=== PATIENT | female | born 1980 | race Caucasian/White ===

== ENCOUNTER 2017-06-24 09:33 | Outpatient (RCR) | payer OTHER, SELFPAY ==
[2017-06-24 09:36] VITALS: BP 97/64; PULSE 67; RESP 16; TEMP 36.4; O2SAT 100; BMI 32.8
--- NOTE | 2017-06-24 11:04 | PN_ITS ---
(1) Polyclonal gammopathy Status: Chronic - Date of Service Date of Service:: 06/24/17 - Chief Complaint Abnormal protein and blood - History of Present Illness Patient was seen in follow-up for polyclonal gammopathy. She had rheumatology evaluation and was not diagnosed with any specific systemic connective tissue disease nor required any specific therapy. - Past Medical/Social History Past Medical History Past Medical History: Arthritis,Clotting disorder,Hypothyroidism Other Past Medical History: ALOPECIA CHROHN'S DISEASE HYPERGAMMAGLOBULINEMIA Past Surgical History Surgical: section Other Surgical History: c section x 2 Family History Paternal Past Medical History: Heart disease Maternal Past Medical History: Unknown Social History Smoking Status Never smoker Review of Systems Constitutional:: Denies: Fever, Sweats, Weight loss, Appetite change, Chills Cardiovascular:: Denies: Chest pain, Palpitations, Dyspnea on exertion, Orthopnea, PND, Shortness of breath Respiratory: Denies: Cough, Hemoptysis, Shortness of Breath, Wheezing Gastrointestinal:: Denies: Abdominal pain, Nausea, Vomiting, Diarrhea, Constipation, Hematochezia Genitourinary: Reports: - - Patient is expecting and no complications with the .. Denies: Dysuria, Hematuria, Flank pain Musculoskeletal:: Denies: Back pain, Myalgia, Arthralgia Skin: Denies: Rash, Skin Changes, Wounds Neurological:: Denies: Headache, Dizziness, Visual changes, Tinnitus, Hearing loss Psychiatric: Denies: Anxiety, Depression, Homicidal Ideations, Suicidal Ideations Objective Vital Signs Height 1.68 m Weight: 92.261 kg Weight in Pounds 203.4 lbs Pulse Ox 100 Temperature 97.5 F Pulse Rate 67 Respiratory Rate 16 Blood Pressure 97/64 Blood Pressure Position Sitting - Physical Exam General: Alert, Oriented x3, No apparent distress HEENT: Atraumatic, PERRLA, EOMI, Normocephalic Oropharynx:: Dry mucosa Neck:: Supple, Trachea midline. Negative for: JVD, bilateral Cardiac:: Regular rate, Regular rhythm, Normal S1, Normal S2. Negative for: Murmur Lungs: Clear to auscultation, Excusion symmetrical. Negative for: Rhonchi, Wheezes Abdomen:: Bowel sounds x 4, Soft, Non-tender, Non-distended, Gravid. Negative for: Hepatosplenomegaly Extremities:: Negative for: Cyanosis, Edema Neurological: Neuro grossly intact Skin:: Negative for: Lesions, Rash, Petechiae, Ecchymosis Psychiatric:: Appropriate affect, Euthymic Lymphatics:: Negative for: Cervical lymphadenopathy, Supraclavicular lymphadenopathy, Axillary lymphadenopathy Laboratory Data: Reviewed in EMR. A hypercoagulable panel was done in 2017 at [facility] is an essentially negative Assessment and Plan 36-year-old female with unexplained polyclonal gammopathy despite thorough evaluation by rheumatology twice. She is asymptomatic. No further follow-up with hematology is indicated. Primary Care Provider: Referring Provider:
== END 2017-06-27 15:08 | disposition home or self-care (01) ==
LOC: OMD 09:33
PROVIDERS: Visit Provider Internal Medicine Hematology & Oncology
DX: D89.0 Polyclonal hypergammaglobulinemia (principal)

== ENCOUNTER → 2017-10-10 14:54 | Outpatient (CLI) | payer OTHER, SELFPAY ==
[2017-10-10 15:41] LABS: Fetal Fibronectin POSITIVE; Record Kit Lot#, fFN J7025
== END ==
PROVIDERS: Visit Provider Advanced Practice Midwife
DX: O47.03 False labor before 37 completed weeks of gestation, third trimester (principal); Z3A.37 37 weeks gestation of pregnancy
CPT/HCPCS: 82731

== ENCOUNTER 2017-10-15 11:10 | Inpatient (IN) | payer OTHER, SELFPAY ==
[2017-10-15] MEDS: Betamethasone/Betamethasone 30 MG/5 ML Vial 12 MG IM (11:40)
[2017-10-15] MEDS: Lactated Ringers 1,000 ML 50 ML IV (11:45)
[2017-10-15 11:55] VITALS: BMI 35.6
[2017-10-15 12:00] LABS: Hematocrit 34.1 % (37-47); Hemoglobin 10.8 g/dl (12.0-15.0); Mean Corp Hgb Conc 31.7 g/gl (32-36); Mean Corpuscular Hgb 26.4 pg (27.0-32.0); Mean Corpuscular Volume 83.4 fL (81-99); Mean Platelet Vol. 8.9 fl (6.2-12.0); Platelet Count 252 K/mm3 (150-450); RBC Distribution Width CV 14.8 % (11.6-14.6); RBC Distribution Width SD 44.8 fl (35.1-43.9); Red Blood Count 4.09 M/mm3 (4.2-5.4); White Blood Count 10.8 K/mm3 (4.4-11.0)
[2017-10-15 12:01] LABS: Scan Indicated on CBC? Y/N NO
[2017-10-15] MEDS: Magnesium Sulfate 20 GM/500 ML BAG IV ×2 (12:45→21:32)
--- NOTE | 2017-10-15 12:51 | US_ITS ---
STUDY: SECOND AND THIRD TRIMESTER OBSTETRICAL ULTRASOUND - LIMITED REASON FOR EXAM: Female, 37 years old. Routine survey. LMP: March 01, 2017. PRIOR ULTRASOUND: None. TECHNIQUE: Transabdominal ultrasound evaluation was performed. FINDINGS: There is a single intrauterine fetus. The fetus is in a cephalic presentation. There is demonstrated cardiac activity with a heart rate of 140 bpm. There is decreased amniotic fluid volume consistent with oligohydramnios. The largest amniotic fluid pocket measures 2.2 cm. The amniotic fluid index (MEET) is 6.7 cm. The placenta is anterior in location and is not low lying. There are Grade 2 placental changes. The cervix measures 3.7 cm in length. BIOMETRY: BPD: 7.79 cm: 31 weeks, 2 days HC: 28.69 cm: 32 weeks, 5 days AC: 28.57 cm: 32 weeks, 5 days FL: 6.29 cm: 32 weeks, 4 days Age by LMP: 32 weeks, 4 days. MURALI by LMP: December 06, 2017. age by current US: 32 weeks, 1 days. MURALI by current US: December 09, 2017. Estimated weight: 1955 grams, +/- 285 grams, 33 percentile. Gender: Indeterminant US/OB Limited With Biometrics IMPRESSION: Single live intrauterine gestation with a mean gestational age of 32 weeks and 1 day. Electronically Signed: Luis Carlos Greer MD at 15:01 EDT Tel [phone], Service support ,
--- NOTE | 2017-10-15 12:54 | OB.TRI.NOTE ---
History of Present Illness Date of Service: 10/15/17 Was patient seen by the physician?: Yes Reason For Visit: PPROM Date of Service: 10/15/17 Final MURALI: 12/06/17 Gestational age: 32 Weeks and 4 Days History of Present Illness: Patient presents with LOF. No VB/ctxs. Reports good FM. Home Medications Medication Instructions Recorded Aspirin [Aspir-Low] 81 mg PO DAILY 06/07/17 Levothyroxine [Synthroid] 50 mcg PO DAILY 06/07/17 Loratadine [Claritin] 10 mg PO DAILY 06/24/17 Formula Tablet 1 tablet PO DAILY 06/24/17 Ferrous Sulfate [Slow Fe] 142 mg PO DAILY 10/15/17 Allergies grass pollen Allergy (Verified 06/24/17 09:46) Other morphine Adverse Reaction (Verified 10/15/17 11:52) Nausea - Pertinent Past Medical History Pertinent Past Medical History: Crohn's Thyroid Asthma Retinal disorder 2 prior c-sections Physical Exam General: Alert, Oriented x3 Abdomen: Soft, Non Tender, Non-Distended Presentation: Cephalic Cervix Dilation (cm): 0 - visually dilated NST - FHR Rate Baby A Baseline: 150 Variability:: Moderate Accelerations:: 15 x 15 Decelerations:: Variable NST Reactive:: Yes Uterine Activity:: quiet Impression/Plan 37yo female with PPROM Admit to L&D PPROM - antibiotics, monitor for signs infection FWB - formal growth US ordered, BMZ #1 given, reassuring EFM Magnesium through steroid time MOD - will be repeat with tubal ligation Plan discussed with Patient declines transport to tertiary care center at this time
--- NOTE | 2017-10-15 18:18 | PCM.PN.BLA ---
Progress Note S: Patient denies ctxs/VB. stable LOF O: fhts 135 with mod variability, accels, mild variables tocos - quiet A&P: 32&4 with PPROM Continue antibiotics & Mg Patient considering transport to [facility] but wants to further discuss things with All questions answered
--- NOTE | 2017-10-15 18:21 | PN_ITS ---
Progress Note S: Patient denies ctxs/VB. stable LOF O: fhts 135 with mod variability, accels, mild variables tocos - quiet A&P: 32&4 with PPROM Continue antibiotics & Mg Patient considering transport to [facility] but wants to further discuss things with All questions answered
--- NOTE | 2017-10-16 07:25 | PCM.PN.BLA ---
Progress Note S: Denies complaints O: AF, VS reviewed abd - soft, NT, ND fhts 130 with mod variability, accels tocos quiet A&P: HD #2 PPROM at 32&5 Continue close observation for infection Repeat cbc Synthroid Pepcid for GERD D/c Mg after 2nd BMZ Routine
[2017-10-16 08:14] LABS: Absolute Lymphocyte Count 1.59 X10^3/ul (0.83-4.51); Basophil# 0.01 X10^3/uL; Basophil% 0.1 % (0-1); Eosinophil# 0.03 X10^3/uL; Eosinophils% 0.2 % (0-5); Hematocrit 32.4 % (37-47); Hemoglobin 10.3 g/dl (12.0-15.0); Lymphocyte # 1.59 X10^3/ul (4.0); Lymphocyte % 10.1 % (19-41); Mean Corp Hgb Conc 31.8 g/gl (32-36); Mean Corpuscular Hgb 26.7 pg (27.0-32.0); Mean Corpuscular Volume 83.9 fL (81-99); Mean Platelet Vol. 8.9 fl (6.2-12.0); Monocyte# 1.08 X10^3/uL; Monocyte% 6.8 % (0-10); Neutrophil # 12.95 X10^3/uL (2.7-7.7); Neutrophil % 81.8 % (47-70); POSITIVE COUNT NO; POSITIVE DIFFERENTIAL NO; POSITIVE MORPHOLOGY NO; Platelet Count 287 K/mm3 (150-450); RBC Distribution Width CV 14.9 % (11.6-14.6); RBC Distribution Width SD 45.3 fl (35.1-43.9); Red Blood Count 3.86 M/mm3 (4.2-5.4); White Blood Count 15.8 K/mm3 (4.4-11.0)
--- NOTE | 2017-10-16 08:14 | PCM.PN.OB ---
Subjective: pt seen at bedside, doing well. pt denies abdominal pain. pt reports good movement. - Physical Exam General: Alert, Oriented x3 Abdomen: Soft, Non Tender, Gravid Weight: 100.2 kg Body Mass Index (BMI) 35.6 Laboratory Tests Past 24 Hrs 10/15/17 10/15/17 10/16/17 11:45 11:45 07:45 WBC 10.8 Pending RBC 4.09 L Pending Hgb 10.8 L Pending Hct 34.1 L Pending MCV 83.4 Pending MCH 26.4 L Pending MCHC 31.7 L Pending RDW 14.8 H Pending RDW Differential 44.8 H Pending Plt Count 252 Pending MPV 8.9 Neut % (Auto) Pending Absolute Neuts (auto) Pending Total Counted Pending Blood Type AB POSITIVE Antibody Screen NEGATIVE Medical Necessity - Tobacco Use Smoking Status: Never smoker Assessment/Plan 37yo @ 32.5 wks with PPROM 1) continue expectant mgmt 2) azithromycin given - dose complete 3) Ampicillin 2g IV q 6hr x 48hr then change to amoxicillin 500 Q8hrs for 5 days. 4) continue MgSO4 until second dose of celestone is in 5) Intermittent monitoring q 8hrs after magnesium complete 6) monitor for signs of infection 7) peds consult already complete- pt declines transport to tertiary care center 8) regular diet to start today- NPO if signs of labor or infection 9) MFM consulted by Dr. Saleem
[2017-10-16] MEDS: Levothyroxine 50 MCG Tablet PO (08:33)
[2017-10-16] MEDS: Lactated Ringers 1,000 ML 50 ML IV (08:34)
[2017-10-16] MEDS: Famotidine 20 MG Tablet PO ×2 (09:24→22:15)
[2017-10-16] MEDS: Betamethasone/Betamethasone 30 MG/5 ML Vial 12 MG IM (11:18)
[2017-10-17] MEDS: 0.9 % NaCl (Sterile) Posiflush 10 mL IV ×3 (01:15→22:55)
[2017-10-17] MEDS: Levothyroxine 50 MCG Tablet PO (06:03)
[2017-10-17 06:36] LABS: Absolute Lymphocyte Count 1.73 X10^3/ul (0.83-4.51); Absolute Neutrophil Count 12.4 X10^3/uL (2.0-7.7); Basophil# 0.02 X10^3/uL; Basophil% 0.1 % (0-1); Eosinophil# 0.02 X10^3/uL; Eosinophils% 0.1 % (0-5); Hematocrit 33.3 % (37-47); Hemoglobin 10.3 g/dl (12.0-15.0); Lymphocyte # 1.73 X10^3/ul (4.0); Lymphocyte % 11.2 % (19-41); Mean Corp Hgb Conc 30.9 g/gl (32-36); Mean Corpuscular Hgb 26.2 pg (27.0-32.0); Mean Corpuscular Volume 84.7 fL (81-99); Mean Platelet Vol. 8.9 fl (6.2-12.0); Monocyte# 1.02 X10^3/uL; Monocyte% 6.6 % (0-10); Neutrophil # 12.43 X10^3/uL (2.7-7.7); Neutrophil % 80.4 % (47-70); Platelet Count 263 K/mm3 (150-450); RBC Distribution Width CV 15.1 % (11.6-14.6); Red Blood Count 3.93 M/mm3 (4.2-5.4); White Blood Count 15.5 K/mm3 (4.4-11.0)
[2017-10-17 06:37] LABS: POSITIVE COUNT NO; POSITIVE DIFFERENTIAL NO; POSITIVE MORPHOLOGY NO
--- NOTE | 2017-10-17 07:28 | PN.OBGYN_ITS ---
Subjective: pt seen at bedside, doing well. pt reports had some pink spotting last night when using bathroom but otherwise nothing else. pt reports NO contractions. pt reports no pain. pt reports good movement. - Physical Exam General: Alert, Oriented x3 Abdomen: Soft, Non Tender, Gravid Extremities: No Calf Tenderness Weight: 100.2 kg Body Mass Index (BMI) 35.6 Laboratory Tests Past 24 Hrs 10/16/17 10/17/17 07:45 06:10 WBC 15.8 H 15.5 H RBC 3.86 L 3.93 L Hgb 10.3 L 10.3 L Hct 32.4 L 33.3 L MCV 83.9 84.7 MCH 26.7 L 26.2 L MCHC 31.8 L 30.9 L RDW 14.9 H 15.1 H RDW Differential 45.3 H 47.0 H Plt Count 287 263 MPV 8.9 8.9 Immature Gran % (Auto) 1.000 H 1.600 H Neut % (Auto) 81.8 H 80.4 H Lymph % (Auto) 10.1 L 11.2 L [place] % (Auto) 6.8 6.6 Eos % (Auto) 0.2 0.1 Baso % (Auto) 0.1 0.1 Absolute Neuts (auto) 13.0 H 12.4 H Absolute Lymphs (auto) 1.59 1.73 Total Counted Not Reportable Not Reportable Medical Necessity - Tobacco Use Smoking Status: Never smoker Assessment/Plan 37yo @ 32.6 wks PPROM 1) continue Abx- switch to PO after 48hrs of IV ampicillin 2) CBC today stable 3) received IM Celestone x 2 4) intermittent monitoring 5) expectant mgmt until 34 wks 6) monitor for signs of infection or labor 7) repeat c/s planned
[2017-10-17] MEDS: Famotidine 20 MG Tablet PO ×2 (12:46→22:55)
[2017-10-17] MEDS: AMOXICILLIN 500 MG CAPSULE PO ×2 (15:27→22:55)
[2017-10-17] MEDS: Docusate Sodium 100 MG Capsule PO (22:55)
[2017-10-18] MEDS: Levothyroxine 50 MCG Tablet PO (05:52)
[2017-10-18] MEDS: AMOXICILLIN 500 MG CAPSULE PO ×3 (05:52→21:44)
--- NOTE | 2017-10-18 08:37 | PCM.PN.OB ---
Subjective: Stable LOF. Denies VB/ctxs. Reports good FM. - Physical Exam General: Alert, Oriented x3 Abdomen: Soft, Non Tender, Non-Distended - NO fundal tenderness Extremities: No Calf Tenderness - negative homans Weight: 220 lb 14.451 oz Body Mass Index (BMI) 35.6 Medical Necessity - Tobacco Use Smoking Status: Never smoker Assessment/Plan HD#4 with PPROM, now at 33 weeks PPROM - continue amoxicillin FWB - reviewed NST's from past 24 hours & all reactive. NST from this am shows fhts 140 with mod variability, accels, occ mild variables; tocos - quiet will continue NST Q8 hours ID - AF, no signs or symptoms of infection MOD - plan for repeat All questions answered & patient agrees with plan
[2017-10-18] MEDS: Docusate Sodium 100 MG Capsule PO ×2 (10:34→21:43)
[2017-10-18] MEDS: Famotidine 20 MG Tablet PO ×2 (10:34→21:43)
[2017-10-19] MEDS: Levothyroxine 50 MCG Tablet PO (06:07)
[2017-10-19] MEDS: AMOXICILLIN 500 MG CAPSULE PO ×3 (06:08→22:09)
--- NOTE | 2017-10-19 08:54 | NURSING ---
0745 pt doing well today set up to shower;
[2017-10-19 09:25] LABS: Absolute Lymphocyte Count 1.32 X10^3/ul (0.83-4.51); Absolute Neutrophil Count 9.5 X10^3/uL (2.0-7.7); Basophil# 0.03 X10^3/uL; Basophil% 0.2 % (0-1); Eosinophil# 0.37 X10^3/uL; Hematocrit 35.9 % (37-47); Hemoglobin 11.4 g/dl (12.0-15.0); Lymphocyte # 1.32 X10^3/ul (4.0); Lymphocyte % 10.8 % (19-41); Mean Corp Hgb Conc 31.8 g/gl (32-36); Mean Corpuscular Hgb 26.7 pg (27.0-32.0); Mean Corpuscular Volume 84.1 fL (81-99); Mean Platelet Vol. 8.9 fl (6.2-12.0); Monocyte# 0.74 X10^3/uL; Neutrophil % 77.6 % (47-70); Platelet Count 338 K/mm3 (150-450); RBC Distribution Width SD 44.9 fl (35.1-43.9); Red Blood Count 4.27 M/mm3 (4.2-5.4); White Blood Count 12.3 K/mm3 (4.4-11.0)
[2017-10-19 09:26] LABS: POSITIVE COUNT YES; POSITIVE DIFFERENTIAL NO; POSITIVE MORPHOLOGY YES
--- NOTE | 2017-10-19 09:40 | PCM.PN.BLA ---
Progress Note S: Comanagement of this patient with Dr. Stiven COX. Patient continues to deny any cramping contractions. Scant clear fluid leaking currently, patient denies any further large gushes of fluid. Patient's continues to be at bedside providing support O: VSS, Afebrile (see RN notes). Latest CBC returned - WBC = 12.3 A+O x 3, NAD Abdomen NT x 4 quadrants to palpation, Gravid No leaking fluid noted at this time, SVE deferred FHT baseline 140, mod variability, + accels, no decels. Ctx none noted on tocometer A: 37 y/o @ 33+ weeks, PPROM, Cat I FHT P: 1) Continue present management 2) Anticipate repeat LTCS at 34 weeks if patient does not go into spontaneous labor on own 3) Update on patient status given to Dr. Stiven COX, patient will be rounded on by Dr. Saleem also today Elidia Becerril CNM
[2017-10-19] MEDS: Famotidine 20 MG Tablet PO ×2 (10:03→22:09)
[2017-10-19] MEDS: Docusate Sodium 100 MG Capsule PO ×2 (10:03→22:08)
--- NOTE | 2017-10-19 14:53 | PN.OBGYN_ITS ---
Subjective: Denies VB/ctxs. Reports good FM and stable LOF. - Physical Exam General: Alert, Oriented x3 Abdomen: Soft, Non Tender, Non-Distended - NO fundal tenderness, Gravid Extremities: No Calf Tenderness Weight: 220 lb 14.451 oz Body Mass Index (BMI) 35.6 Laboratory Tests Past 24 Hrs 10/19/17 09:10 WBC 12.3 H RBC 4.27 Hgb 11.4 L Hct 35.9 L MCV 84.1 MCH 26.7 L MCHC 31.8 L RDW 15.0 H RDW Differential 44.9 H Plt Count 338 MPV 8.9 Immature Gran % (Auto) 2.400 H Neut % (Auto) 77.6 H Lymph % (Auto) 10.8 L [place] % (Auto) 6.0 Eos % (Auto) 3.0 Baso % (Auto) 0.2 Absolute Neuts (auto) 9.5 H Absolute Lymphs (auto) 1.32 Total Counted Not Reportable Diff Path Review May foll Medical Necessity - Tobacco Use Smoking Status: Never smoker Assessment/Plan 37yo female @ 33&1 with PPROM PPROM - continue amoxicillin FWB - s/p BMZ monitoring - fhts 145 with mod variability, accels, occ mild variables tocos - irregular ctxs TAUS - vtx, MEET = 2.7 ID - wbc decreased today, no fundal tenderness or tachycardia, patient with temp of 99.5. had a temp of 100.3 that on repeat was 99.5. Plan of care & findings discussed with who recommends continued close observation & evaluation. No evidence of infection or distress at this time.
[2017-10-20] MEDS: Levothyroxine 50 MCG Tablet PO (06:07)
[2017-10-20] MEDS: AMOXICILLIN 500 MG CAPSULE PO ×3 (06:07→21:02)
[2017-10-20] MEDS: Docusate Sodium 100 MG Capsule PO ×2 (09:53→21:02)
[2017-10-20] MEDS: Famotidine 20 MG Tablet PO ×2 (09:53→21:02)
--- NOTE | 2017-10-20 11:18 | PCM.PN.BLA ---
Progress Note S: Patient sitting up in bed, watching television with her . Patient denies any abdominal pain and tenderness, reports +FM. O: VSS, Afebrile today. No temps >100.4 F. Last temp was 99.0 F Abdomen NT x 4 quadrants, Gravid FHT change in baseline at 10:00 am noted. Previously baseline between 140-150. Currently baseline 160, moderate variability, + accels, no decels Irregular ctx q 2-15 minutes x 1 hours, then no ctx for an hour. Now ctx again irregular q 3-10 minutes. Ctx not felt by patient, not palpable. SVE = deferred A: 37 y/o @ 33.2 weeks, PPROM, Categroy I FHT P: 1) Dr. Saleem updated of patient status 2) Redraw CBC, T+S today. 3) Restart Heplock now 4) Patient may eat light lunch, dissuade from eating snacks after lunch 5) Dr. Saleem to see patient this afternoon/early evening Elidia Becerril CNM
[2017-10-20 13:50] LABS: Absolute Lymphocyte Count 1.36 X10^3/ul (0.83-4.51); Absolute Neutrophil Count 10.3 X10^3/uL (2.0-7.7); Basophil# 0.03 X10^3/uL; Basophil% 0.2 % (0-1); Eosinophil# 0.34 X10^3/uL; Eosinophils% 2.6 % (0-5); Hematocrit 34.4 % (37-47); Lymphocyte # 1.36 X10^3/ul (4.0); Lymphocyte % 10.3 % (19-41); Mean Corpuscular Hgb 26.7 pg (27.0-32.0); Mean Corpuscular Volume 83.5 fL (81-99); Monocyte# 0.96 X10^3/uL; Monocyte% 7.3 % (0-10); Neutrophil # 10.29 X10^3/uL (2.7-7.7); Neutrophil % 77.8 % (47-70); Platelet Count 336 K/mm3 (150-450); RBC Distribution Width CV 14.9 % (11.6-14.6); Red Blood Count 4.12 M/mm3 (4.2-5.4); White Blood Count 13.2 K/mm3 (4.4-11.0)
[2017-10-20 13:52] LABS: POSITIVE COUNT NO; POSITIVE DIFFERENTIAL NO; POSITIVE MORPHOLOGY NO
[2017-10-20] MEDS: 0.9 % NaCl (Sterile) Posiflush 10 mL IV (13:54)
--- NOTE | 2017-10-20 14:07 | NURSING ---
wrong site charted. See new peripheral site.
--- NOTE | 2017-10-20 18:48 | PCM.PN.OB ---
Subjective: No VB/ctxs. Reports some LOF & good FM. She is very happy she was able to see her kids today. - Physical Exam General: Alert, Oriented x3 Abdomen: Soft, Non Tender, Non-Distended - NO fundal tenderness Extremities: No Calf Tenderness Weight: 220 lb 14.451 oz Body Mass Index (BMI) 35.6 Laboratory Tests Past 24 Hrs 10/20/17 10/20/17 13:20 13:20 WBC 13.2 H RBC 4.12 L Hgb 11.0 L Hct 34.4 L MCV 83.5 MCH 26.7 L MCHC 32.0 RDW 14.9 H RDW Differential 45.0 H Plt Count 336 MPV 9.0 Immature Gran % (Auto) 1.800 H Neut % (Auto) 77.8 H Lymph % (Auto) 10.3 L [place] % (Auto) 7.3 Eos % (Auto) 2.6 Baso % (Auto) 0.2 Absolute Neuts (auto) 10.3 H Absolute Lymphs (auto) 1.36 Total Counted Not Reportable Blood Type AB POSITIVE Antibody Screen NEGATIVE Medical Necessity - Tobacco Use Smoking Status: Never smoker Assessment/Plan A&P: 37yo female at 33& with PPROM ID - AF, wbc 13 today. continue amoxicillin. no signs infection & will continue to monitor closely. FWB - monitoring reassuring. plant to resume monitoring Q 8hours. fhts - 145 with mod variability, accels, occ mild variables tocos - occ ctx GI - continue light diet Routine care
[2017-10-20] MEDS: 0.9% Saline Lock 10 ML Syringe IV (21:24)
--- NOTE | 2017-10-21 04:32 | PCM.PN.BLA ---
Progress Note S: Page received from nursing staff, patient passed small stringy blood clot when she was up to bathroom. Patient denies having any regular ctx. This evening reports she is feeling a few small cramps. Patient reports +FM. One more episode of clear fluid gushing out happened late yesterday evening. O: VSS, Afebrile. Last temp = 98.9 F FHT baseline 145, moderate variability, + accels, no decels noted Ctx q 1-10 minutes on tocometer over last 2 hours, most not palpable by nursing staff. Patient smiling and does not perceive ctx. SVE deferred A: 37 y/o @ 33.3 weeks PPROM x 6 days, Cat I FHT P: 1) Continue present management - patient stable at this time 2) Will update MD in morning at shift change Elidia Becerril CNM
[2017-10-21] MEDS: AMOXICILLIN 500 MG CAPSULE PO ×3 (07:09→22:45)
[2017-10-21] MEDS: Levothyroxine 50 MCG Tablet PO (08:06)
--- NOTE | 2017-10-21 08:10 | PN.OBGYN_ITS ---
Subjective: pt seen at bedside, doing well. pt reports no pain, some leaking. Denies SIMMONS, chest pain SOB. pt reports good FM. - Physical Exam General: Alert, Oriented x3 Abdomen: Soft, Non Tender, - - fundus firm Extremities: No Calf Tenderness Weight: 100.2 kg Body Mass Index (BMI) 35.6 Laboratory Tests Past 24 Hrs 10/20/17 10/20/17 13:20 13:20 WBC 13.2 H RBC 4.12 L Hgb 11.0 L Hct 34.4 L MCV 83.5 MCH 26.7 L MCHC 32.0 RDW 14.9 H RDW Differential 45.0 H Plt Count 336 MPV 9.0 Immature Gran % (Auto) 1.800 H Neut % (Auto) 77.8 H Lymph % (Auto) 10.3 L [place] % (Auto) 7.3 Eos % (Auto) 2.6 Baso % (Auto) 0.2 Absolute Neuts (auto) 10.3 H Absolute Lymphs (auto) 1.36 Total Counted Not Reportable Blood Type AB POSITIVE Antibody Screen NEGATIVE Medical Necessity - Tobacco Use Smoking Status: Never smoker Assessment/Plan HD#6, 33.3 wks gestation with PPROM 1) continue intermittent FHR/TOCO unless complaints of pain, bleeding, febrile, decreased FM or other 2) CBC daily 3) monitor VS 4) C/S at 34 weeks unless indicated prior 5) M has been consulted and agrees with management plan
[2017-10-21] MEDS: 0.9% Saline Lock 10 ML Syringe IV ×2 (09:28→22:45)
[2017-10-21] MEDS: Docusate Sodium 100 MG Capsule PO ×2 (09:28→22:45)
[2017-10-21] MEDS: Famotidine 20 MG Tablet PO ×2 (10:52→22:45)
[2017-10-21 13:45] LABS: Pathologist Review Reviewed
[2017-10-22] MEDS: AMOXICILLIN 500 MG CAPSULE PO ×3 (06:51→22:15)
[2017-10-22] MEDS: Levothyroxine 50 MCG Tablet PO (06:51)
--- NOTE | 2017-10-22 08:22 | PCM.PN.OB ---
Subjective: pt seen at bedside, doing well. pt reports good movement. pt reports no abdominal pain. still leaking clear fluid- no vaginal bleeding. - Physical Exam General: Alert, Oriented x3 Abdomen: Soft, Non Tender, Gravid Extremities: No Calf Tenderness Weight: 100.2 kg Body Mass Index (BMI) 35.6 Laboratory Tests Past 24 Hrs 10/19/17 09:10 Diff Path Review Reviewed Medical Necessity - Tobacco Use Smoking Status: Never smoker Assessment/Plan 37yo 33.4 wks- PPROM doing well today 1) repeat cbc 2) intermittent monitoring- NST this morning reactive and category 1- 145 bpm, moderate variability with accelerations no decelerations. No regular contractions. 3) Plan for repeat c/s at 34 weeks 4) monitor VS, monitor for s/sx of infection or Labor
[2017-10-22 08:57] LABS: Absolute Lymphocyte Count 1.36 X10^3/ul (0.83-4.51); Absolute Neutrophil Count 9.3 X10^3/uL (2.0-7.7); Basophil# 0.02 X10^3/uL; Basophil% 0.2 % (0-1); Eosinophils% 3.3 % (0-5); Hematocrit 35.2 % (37-47); Lymphocyte # 1.36 X10^3/ul (4.0); Lymphocyte % 11.1 % (19-41); Mean Corp Hgb Conc 31.3 g/gl (32-36); Mean Corpuscular Hgb 26.1 pg (27.0-32.0); Mean Corpuscular Volume 83.6 fL (81-99); Monocyte# 1.03 X10^3/uL; Monocyte% 8.4 % (0-10); Neutrophil % 75.7 % (47-70); Platelet Count 277 K/mm3 (150-450); RBC Distribution Width CV 15.2 % (11.6-14.6); RBC Distribution Width SD 46.6 fl (35.1-43.9); Red Blood Count 4.21 M/mm3 (4.2-5.4); White Blood Count 12.3 K/mm3 (4.4-11.0)
[2017-10-22 08:58] LABS: POSITIVE COUNT NO; POSITIVE DIFFERENTIAL NO; POSITIVE MORPHOLOGY NO
[2017-10-22] MEDS: Famotidine 20 MG Tablet PO ×2 (10:14→22:15)
[2017-10-22] MEDS: Docusate Sodium 100 MG Capsule PO ×2 (10:14→22:15)
[2017-10-22] MEDS: 0.9% Saline Lock 10 ML Syringe IV ×2 (12:57→22:15)
[2017-10-23] MEDS: Levothyroxine 50 MCG Tablet PO (06:10)
[2017-10-23] MEDS: AMOXICILLIN 500 MG CAPSULE PO ×3 (06:11→21:58)
--- NOTE | 2017-10-23 08:49 | PCM.PN.OB ---
Subjective: Patient sitting up in bed denies any complaints. Reports +FM Objective: FHT baseline 150 overnight, moderate variability, no decels, + accels Scant clear fluid leaking from vagina - Physical Exam General: Alert, Oriented x3, Cooperative HEENT: Atraumatic, PERRLA, EOMI, Normocephalic Lungs: Normal air movement Cardiovascular: Regular rate, Regular Rhythm Abdomen: Soft, Non Tender, Gravid, Appropriate for Gestational Age Extremities: No edema, Capillary Refill Less than 3 Seconds Skin: No rashes, No breakdown Musculoskeletal: No Tenderness to Palpation of Joints or Extremities Neurological: Cranial nerves II-XII grossly intact Psych/Mental Status: Normal Affect, Appropriate Weight: 220 lb 14.451 oz Body Mass Index (BMI) 35.6 Laboratory Tests Past 24 Hrs 10/22/17 08:40 WBC 12.3 H RBC 4.21 Hgb 11.0 L Hct 35.2 L MCV 83.6 MCH 26.1 L MCHC 31.3 L RDW 15.2 H RDW Differential 46.6 H Plt Count 277 MPV 9.0 Immature Gran % (Auto) 1.300 H Neut % (Auto) 75.7 H Lymph % (Auto) 11.1 L [place] % (Auto) 8.4 Eos % (Auto) 3.3 Baso % (Auto) 0.2 Absolute Neuts (auto) 9.3 H Absolute Lymphs (auto) 1.36 Total Counted Not Reportable Medical Necessity - Tobacco Use Smoking Status: Never smoker Tobacco Use: Non-smoker Assessment/Plan A: 37 y/o @ 33.5 week s/p PRROM x 8 days, Category I FHT P: 1) Repeat CBC with diff ordered this morning 2) Dr. Saleem to see patient this afternoon 3) Anticipate repeat LTCS at 34 weeks gestation on Saturday Elidia Becerril CNM
[2017-10-23] MEDS: Docusate Sodium 100 MG Capsule PO ×2 (10:02→21:58)
[2017-10-23] MEDS: Famotidine 20 MG Tablet PO ×2 (10:02→21:58)
[2017-10-23 10:20] LABS: Absolute Lymphocyte Count 1.41 X10^3/ul (0.83-4.51); Absolute Neutrophil Count 9.9 X10^3/uL (2.0-7.7); Basophil# 0.04 X10^3/uL; Basophil% 0.3 % (0-1); Eosinophil# 0.37 X10^3/uL; Eosinophils% 2.9 % (0-5); Hematocrit 33.7 % (37-47); Hemoglobin 10.6 g/dl (12.0-15.0); Lymphocyte # 1.41 X10^3/ul (4.0); Lymphocyte % 11.2 % (19-41); Mean Corp Hgb Conc 31.5 g/gl (32-36); Mean Corpuscular Hgb 26.2 pg (27.0-32.0); Mean Corpuscular Volume 83.2 fL (81-99); Mean Platelet Vol. 8.7 fl (6.2-12.0); Monocyte# 0.75 X10^3/uL; Monocyte% 5.9 % (0-10); Neutrophil # 9.87 X10^3/uL (2.7-7.7); Neutrophil % 78.2 % (47-70); Platelet Count 279 K/mm3 (150-450); RBC Distribution Width CV 14.9 % (11.6-14.6); RBC Distribution Width SD 44.5 fl (35.1-43.9); Red Blood Count 4.05 M/mm3 (4.2-5.4); White Blood Count 12.6 K/mm3 (4.4-11.0)
[2017-10-23 10:21] LABS: POSITIVE COUNT NO; POSITIVE DIFFERENTIAL NO; POSITIVE MORPHOLOGY NO
--- NOTE | 2017-10-23 17:27 | PN.OBGYN_ITS ---
Subjective: No VB/ctxs. Reports good FM and stable LOF - Physical Exam General: Alert, Oriented x3 Abdomen: Soft, Non Tender, Non-Distended - NO fundal tenderness Extremities: No Calf Tenderness Weight: 220 lb 14.451 oz Body Mass Index (BMI) 35.6 Laboratory Tests Past 24 Hrs 10/23/17 10:10 WBC 12.6 H RBC 4.05 L Hgb 10.6 L Hct 33.7 L MCV 83.2 MCH 26.2 L MCHC 31.5 L RDW 14.9 H RDW Differential 44.5 H Plt Count 279 MPV 8.7 Immature Gran % (Auto) 1.500 H Neut % (Auto) 78.2 H Lymph % (Auto) 11.2 L [place] % (Auto) 5.9 Eos % (Auto) 2.9 Baso % (Auto) 0.3 Absolute Neuts (auto) 9.9 H Absolute Lymphs (auto) 1.41 Total Counted Not Reportable Medical Necessity - Tobacco Use Smoking Status: Never smoker Tobacco Use: Non-smoker Assessment/Plan 37yo female @ 33&5 with PPROM ID - reviewed wbc, AF, no signs infection FWB - continue intermittent monitoring which has been reassuring - fhts 150 with mod variability, accels, occ mild variables; tocos - occ ctx Plan for repeat at 34 weeks unless maternal or indication sooner Routine care
[2017-10-23] MEDS: 0.9% Saline Lock 10 ML Syringe IV ×2 (17:45→21:58)
[2017-10-24] MEDS: AMOXICILLIN 500 MG CAPSULE PO ×3 (06:36→22:06)
[2017-10-24] MEDS: Levothyroxine 50 MCG Tablet PO (06:36)
[2017-10-24] MEDS: Docusate Sodium 100 MG Capsule PO ×2 (10:35→22:06)
[2017-10-24] MEDS: Famotidine 20 MG Tablet PO ×2 (10:35→22:19)
[2017-10-24] MEDS: 0.9% Saline Lock 10 ML Syringe IV (10:35)
[2017-10-24 15:33] LABS: Absolute Lymphocyte Count 1.51 X10^3/ul (0.83-4.51); Absolute Neutrophil Count 9.3 X10^3/uL (2.0-7.7); Basophil# 0.03 X10^3/uL; Basophil% 0.2 % (0-1); Eosinophil# 0.39 X10^3/uL; Eosinophils% 3.2 % (0-5); Hematocrit 34.2 % (37-47); Lymphocyte # 1.51 X10^3/ul (4.0); Lymphocyte % 12.2 % (19-41); Mean Corp Hgb Conc 32.2 g/gl (32-36); Mean Corpuscular Hgb 26.5 pg (27.0-32.0); Mean Corpuscular Volume 82.4 fL (81-99); Mean Platelet Vol. 9.1 fl (6.2-12.0); Monocyte# 0.92 X10^3/uL; Monocyte% 7.4 % (0-10); Neutrophil # 9.31 X10^3/uL (2.7-7.7); Neutrophil % 75.5 % (47-70); POSITIVE COUNT NO; POSITIVE DIFFERENTIAL NO; POSITIVE MORPHOLOGY NO; Platelet Count 317 K/mm3 (150-450); RBC Distribution Width CV 14.9 % (11.6-14.6); RBC Distribution Width SD 43.6 fl (35.1-43.9); Red Blood Count 4.15 M/mm3 (4.2-5.4); White Blood Count 12.4 K/mm3 (4.4-11.0)
--- NOTE | 2017-10-24 18:06 | PCM.PN.OB ---
Subjective: Denies ctxs/VB. reports stable LOF & good FM. - Physical Exam General: Alert, Oriented x3 Abdomen: Soft, Non Tender - NO fundal tenderness, Gravid Extremities: No Calf Tenderness Weight: 220 lb 14.451 oz Body Mass Index (BMI) 35.6 Laboratory Tests Past 24 Hrs 10/24/17 10/24/17 15:05 15:05 WBC 12.4 H RBC 4.15 L Hgb 11.0 L Hct 34.2 L MCV 82.4 MCH 26.5 L MCHC 32.2 RDW 14.9 H RDW Differential 43.6 Plt Count 317 MPV 9.1 Immature Gran % (Auto) 1.500 H Neut % (Auto) 75.5 H Lymph % (Auto) 12.[address] [place] % (Auto) 7.4 Eos % (Auto) 3.2 Baso % (Auto) 0.2 Absolute Neuts (auto) 9.3 H Absolute Lymphs (auto) 1.51 Total Counted Not Reportable Blood Type AB POSITIVE Antibody Screen NEGATIVE Medical Necessity - Tobacco Use Smoking Status: Never smoker Tobacco Use: Non-smoker Assessment/Plan A&P: 37yo female @ 33&6 with PPROM ID - AF, no signs infection FWB - reassuring intermittent EFM fhts 145 with mod variability, accels, mild variables tocos quiet MOD - repeat tomorrow Routine care
[2017-10-25] VITALS (15 sets, daily range): BP systolic 99–133; BP diastolic 58–71; PULSE 76–96; RESP 16–18; TEMP 36.4–37.3; O2SAT 98–100
[2017-10-25] MEDS: AMOXICILLIN 500 MG CAPSULE PO (06:24)
--- NOTE | 2017-10-25 07:10 | PCM.PN.OB ---
Subjective: Pt seen at bedside, doing well. pt reports no pain or contractions. All questions were answered about repeat cs and BTL that will be performed today. - Physical Exam General: Alert, Oriented x3 Abdomen: Soft, Non Tender, Gravid Weight: 100.2 kg Body Mass Index (BMI) 35.6 Laboratory Tests Past 24 Hrs 10/24/17 10/24/17 15:05 15:05 WBC 12.4 H RBC 4.15 L Hgb 11.0 L Hct 34.2 L MCV 82.4 MCH 26.5 L MCHC 32.2 RDW 14.9 H RDW Differential 43.6 Plt Count 317 MPV 9.1 Immature Gran % (Auto) 1.500 H Neut % (Auto) 75.5 H Lymph % (Auto) 12.2 L [place] % (Auto) 7.4 Eos % (Auto) 3.2 Baso % (Auto) 0.2 Absolute Neuts (auto) 9.3 H Absolute Lymphs (auto) 1.51 Total Counted Not Reportable Blood Type AB POSITIVE Antibody Screen NEGATIVE Medical Necessity - Tobacco Use Smoking Status: Never smoker Tobacco Use: Non-smoker Assessment/Plan HD#9 with PPROM now 34 weeks- plan for repeat c/s and BTL today 1) zithromax 500mg IV and Ancef for PRE OP 2) Risks of surgery reviewed with patient including but not limited to bleeding, infection, injury to pelvic structures. pt understands that tubal ligation is permanent. 3) plan for c/s at noon today unless signs of infection or decompensation become apparent before.
--- NOTE | 2017-10-25 07:13 | PN.OBGYN_ITS ---
Subjective: Pt seen at bedside, doing well. pt reports no pain or contractions. All questions were answered about repeat cs and BTL that will be performed today. - Physical Exam General: Alert, Oriented x3 Abdomen: Soft, Non Tender, Gravid Weight: 100.2 kg Body Mass Index (BMI) 35.6 Laboratory Tests Past 24 Hrs 10/24/17 10/24/17 15:05 15:05 WBC 12.4 H RBC 4.15 L Hgb 11.0 L Hct 34.2 L MCV 82.4 MCH 26.5 L MCHC 32.2 RDW 14.9 H RDW Differential 43.6 Plt Count 317 MPV 9.1 Immature Gran % (Auto) 1.500 H Neut % (Auto) 75.5 H Lymph % (Auto) 12.2 L [place] % (Auto) 7.4 Eos % (Auto) 3.2 Baso % (Auto) 0.2 Absolute Neuts (auto) 9.3 H Absolute Lymphs (auto) 1.51 Total Counted Not Reportable Blood Type AB POSITIVE Antibody Screen NEGATIVE Medical Necessity - Tobacco Use Smoking Status: Never smoker Tobacco Use: Non-smoker Assessment/Plan HD#9 with PPROM now 34 weeks- plan for repeat c/s and BTL today 1) zithromax 500mg IV and Ancef for PRE OP 2) Risks of surgery reviewed with patient including but not limited to bleeding , infection, injury to pelvic structures. pt understands that tubal ligation is permanent. 3) plan for c/s at noon today unless signs of infection or decompensation become apparent before.
[2017-10-25] MEDS: 0.9% Saline Lock 10 ML Syringe IV ×2 (09:55→21:17)
[2017-10-25] MEDS: Lactated Ringers 1,000 ML 150 ML IV ×2 (09:59→11:08)
[2017-10-25] MEDS: Levothyroxine 50 MCG Tablet PO (11:07)
[2017-10-25] MEDS: Sodium Citrate/Citric Acid 30 ML UDC PO (11:41)
[2017-10-25] MEDS: Ondansetron 4 MG/2 ML Vial IV (12:00)
[2017-10-25] MEDS: Oxytocin 30 units/NS 500 ml 30 UNITS/500 ML IV.SOLN 167 UNITS IV (12:17)
[2017-10-25] MEDS: Methylergonovine 0.2 MG/ML Ampul IM (12:21)
--- NOTE | 2017-10-25 12:40 | FALS_PTH ---
PATIENT: LACEY AL LOC: WP U#:[id number] AGE/SX: 37/F ROOM: WP009 RE10/15/[address]: Dr. Arleen Saleem MD : 1980 BED: 1 DIS: 10/28/2017 SPEC #: [id number] RECD: 10/28/17 07:28 STATUS: ELIZABETH RESelena #: [id number] JOE: 10/25/17 12:[address]: Marleni Avendaño DEPT: SURGICAL PATHOLOGY RECD BY: Rustam Rizzo ENTERED: 10/28/17 07:28 SP TYPE: FALL TUBES OTHR DR: MD Dr. Arleen Kuhn MD No Primary Care Phys Tissues: Fallopian tube Procedures: Surgery Specimen Level II Comments: @ Ordering doctor for SUII edited from to DR.DMCINT Wray by MAGNOLIA at 10/28/17 1233 @ Submitting doctor edited from to DR.DMCINT Wray by MAGNOLIA at 10/28/17 1233 HEADER OPERATION: Tubal ligation PRE-OP DIAGNOSIS: Desires elective sterilization TISSUE SUBMITTED: Fallopian tubes MICROSCOPIC DIAGNOSIS Bilateral fallopian tubes, tubal ligation: Completely transected segments of bilateral fallopian tubes, no pathologic diagnosis. NORMA:royer 10/29/17 MICROSCOPIC DESCRIPTION Slides are reviewed. GROSS DESCRIPTION Received in fixative is one container labeled with the patient's name and designated right fallopian tube, suture in right. The specimen consists of two tubular pieces of lyn soft tissue. The right tube is identified by a suture. The right tube with suture measures 1 cm in length and 0.7 cm in diameter. The left tube measures 0.7 cm in length and 0.7 cm in diameter. The right tube is inked black. Both pieces will be sectioned at the time of embedding. / NORMA:royer 10/28/17 TC:4 CPT: 50391 x2
--- NOTE | 2017-10-25 12:52 | PCM.OB.CSR ---
Delivery Classification: Scheduled Final MURALI: 12/06/17 Final MURALI Source: US <20 weeks Gestational age: 34 Weeks and 0 Days Indications: PPPROM Indications for : Repeat Elective , Desires elective sterilization, - - PPPROM Description of Procedure: Surgeon: Dr. Marleni Avendaño Bilingual Customer Service Specialist: YAZMIN Jung Procedure performed: Repeat section, bilateral partial salpingectomy Anesthesia: Spinal Preoperative diagnosis: Prolonged premature rupture of membranes at 32+ weeks gestation for an elective repeat section at 34 weeks desires sterilization Postoperative Diagnosis: same- live female infant Findings: Live female born without complication. Nuchal ?1 loose. Clear fluid. Delayed cord clamping performed. Normal tubes and ovaries bilaterally. Partial salpingectomy performed - right tube bleeding after- 2 extra free ties placed and good hemostasis achieved EBL: 800 cc Implantable devices: None Operative note: After informed consent was obtained the patient was taken to the operating room she was given spinal anesthesia. He was placed in the supine position. She was then prepped and draped in normal sterile fashion. Once spinal anesthesia was found to be adequate skin incision was made with a scalpel in a Pfannenstiel fashion. It was carried down to the underlying layer of the fascia. Fascia was then incised midline with scapel and extended laterally using curved hackett. 2 straight Shayna's were placed in the superior aspect of the fascial edge and the rectus muscles were dissected off sharply. Attention was then turned to the inferior aspect where again the fascial edge was grasped with 2 straight Shayna clamps tented up and the rectus muscle dissected off sharply. At this time the rectus muscles were grasped in the midline using 2 Allis clamps and scalpel was used to separate the rectus muscles. Using blunt force the peritoneum was then entered. Metzenbaums were used to take down the rectus muscles inferiorly as well as the peritoneum. At this time the vesicouterine peritoneum was identified. Uterine incision was made in a low transverse fashion with the scalpel and then entered bluntly. Gentle opposing traction was placed to extend the uterine incision. The amniotic fluid was clear. Infant's head was then brought to the uterine incision was delivered atraumatically followed by the rest 's body. At this time delayed cord clamping was performed mouth nose were suctioned. Infant was then handed to the waiting nursery team. The placenta was then removed with gentle traction. The uterus was removed from the intra-abdominal cavity is wrapped in a moist lap. He was cleared of all clots and debris using a moist lap. Ring clamps were placed on the uterine angles. #1 Vicryl suture was used in a running locked fashion for the first layer. Followed by second imbricating layer with #1 Vicryl. At this time then the uterus was placed back into abdominal cavity uterine incision was evaluated and noted to be of good hemostasis. Tubes and ovaries were evaluated they were normal. The tubes were grasped in an avascular area with the Supa 0- plain gut suture was used to create a knuckle this was doubly secured. A portion of the tube was then resected using the Metzenbaum scissors. And the ends were coagulated using the Bovie. Bleeding noted from right tube- two free ties were placed below the pervious knuckle and hemostasis was appreciated. Uterus was placed back in the intrabdominal cavity. tubes were reevaluated as well as uterine incision. Good hemostasis was appreciated at this time. Adolfo placed. The peritoneum was grasped with Kellys. Peritoneum was reapproximated using #2 Vicryl suture in a running fashion. The fascia was then reapproximated using #1 Vicryl in a running fashion. Subcutaneous layer was evaluated and Bovie was used for any small oozing that was noted per #2-0 plain gut suture was then used to reapproximate the subcutaneous layer 4-0 Vicryl on a Ambrosio needle was used to reapproximate the skin in a subcutaneous fashion. Dry sterile dressing was applied. Instrument lap needle count were correct ?2. Anticipated normal postoperative course for this patient. Amniotic Membrane Rupture Type: Spontaneous Amniotic Fluid Description: Clear Placenta Disposition: Sent to Pathology Drain: Pressley to straight drain Cord Entanglement: Around neck x 1, loose Cord Vessel Description: 3 Vessels Esitmated Blood Loss (ml): 800 Gender: Female (1 minute): 8 (5 minute): 9 Delayed cord clamping: Yes Pre-op Antibiotic Given: - - zithromax 500mg IV Pt instructed on risks of surgery: Bleeding, Anesthesia Risks, Infection, Need for Future C-Sections, Permanency, Failure Rate of 1 to 2%, Injury to surrounding structure(s) including bowel and bladder, Availability of other non-permanent control options Complications: None - Admit VTE Documentation VTE Present on Admission: Yes VTE Mechan Device Prophylaxis: SCD's VTE Pharm Prophylaxis ordered?: No
[2017-10-25] MEDS: Lactated Ringers 1,000 ML 100 ML IV (13:10)
[2017-10-25] MEDS: proMETHazine 25 MG/ML Syringe 12.5 MG IV (14:33)
[2017-10-26] VITALS (10 sets, daily range): BP systolic 96–115; BP diastolic 54–80; PULSE 75–99; RESP 16–18; TEMP 36.2–37.2; O2SAT 97–100
[2017-10-26] MEDS: Ibuprofen 600 MG Tablet PO ×2 (00:35→08:52)
[2017-10-26] MEDS: Levothyroxine 50 MCG Tablet PO (06:31)
[2017-10-26 07:16] LABS: Hemoglobin 9.7 g/dl (12.0-15.0); Mean Corp Hgb Conc 32.3 g/gl (32-36); Mean Corpuscular Hgb 26.9 pg (27.0-32.0); Mean Corpuscular Volume 83.1 fL (81-99); Mean Platelet Vol. 9.1 fl (6.2-12.0); Platelet Count 260 K/mm3 (150-450); RBC Distribution Width CV 15.1 % (11.6-14.6); RBC Distribution Width SD 44.1 fl (35.1-43.9); Red Blood Count 3.61 M/mm3 (4.2-5.4); Scan Indicated on CBC? Y/N NO; White Blood Count 13.4 K/mm3 (4.4-11.0)
--- NOTE | 2017-10-26 07:58 | PCM.PN.OB ---
Subjective: pt seen at bedside doing well. pt reports passing flatus. Tolerating diet. Denies CP, SOB or Dizziness. pt has mcknight in place. some pain but is relieved with PO medication. pumping as baby in SCN. - Physical Exam General: Alert, Oriented x3 Abdomen: Soft, Non-Distended, - - fundus firm. INcision dressing dry and intact Extremities: No Calf Tenderness Vital Signs Temp Pulse Resp BP Pulse Ox 97.2 F L 88 18 96/54 L 98 10/26/17 04:30 10/26/17 04:30 10/26/17 04:30 10/26/17 04:30 10/26/17 04:30 Oxygen Delivery Method Room Air Weight: 100.2 kg Body Mass Index (BMI) 35.6 Intake and Output for Last 24 Hours 10/24/17 10/25/17 10/26/17 23:59 23:59 23:59 Intake Total 3431 / 3431 1075 / 1075 Output Total 1600 / 1600 1100 / 1100 Balance 1831 / 1831 -25 / -25 Laboratory Tests Past 24 Hrs 10/26/17 06:40 WBC 13.4 H RBC 3.61 L Hgb 9.7 L Hct 30.0 L MCV 83.1 MCH 26.9 L MCHC 32.3 RDW 15.1 H RDW Differential 44.1 H Plt Count 260 MPV 9.1 Medical Necessity - Tobacco Use Smoking Status: Never smoker Tobacco Use: Non-smoker Assessment/Plan POD#1 doing well routine care pain mgmt dc mcknight today labs and VS reviewed- stable
--- NOTE | 2017-10-26 08:03 | DCINST_ITS ---
Discharge Diet: No Restrictions Discharge Activity: Return to Normal Activity, May Not Drive - for 2 weeks, May not drive while taking narcotic pain medications., May Shower, May Take a Tub Bath - in 7 days. May resume sexual activity in: 4-6 weeks Lifting Restrictions: 20 pounds Additional Activity Instructions:: Nothing in the vagina for 4-6 weeks. You may return to work/school in 6 weeks. Call your doctor if your incision/area has: Continuous Slow Oozing, Sudden Increased Bleeding, Increased Pain/ Swelling, Increased Redness, Foul Smelling Discharge Call your doctor if you observe: Fever of 101 or Higher, Using more than one pad per hour - for 2 hours Suture Line Care: Avoid Pulling/Pushing, Avoid Pinching/Bending Cleanse incision/area with: Keep Dressing Clean & Dry Additional Instructions: If you experience any of the following, contact your healthcare provider. * Bleeding that soaks a pad every hour for 2 hours * Fever 100.4 or higher * Unrelieved incision or abdominal pain * Swelling, redness, discharge or bleeding from your incision or episiotomy site * Your incision begins to separate * Problems urinating (including inability to urinate or burning while urinating) . * Visual changes * Severe headache * Flu-like symptoms * Pain or redness in one of both of your breasts * Pain, warmth, tenderness or swelling in your legs, especially the calf area * Frequent nausea and vomiting * Symptoms of depression or anxiety If you experience any of the following, call 911 or go to the nearest Emergency Room. * Chest pain * Problems breathing * Seizure activity * Partial or complete paralysis of a body part, slurred speech, weakness or drooping of the face, or a sudden inability to walk or hold your balance Allergies/Adverse Reactions: Allergies grass pollen Allergy (Verified 06/24/17 09:46) Other morphine Adverse Reaction (Verified 10/15/17 11:52) Nausea Medications to take at Discharge Levothyroxine [Synthroid] 50 mcg PO DAILY 06/07/17 Loratadine [Claritin] 10 mg PO DAILY 06/24/17 Formula Tablet 1 tablet PO DAILY 06/24/17 Ferrous Sulfate [Slow Fe] 142 mg PO DAILY 10/15/17 Ibuprofen [Motrin] 800 mg PO Q8H PRN PRN #60 tab 10/26/17 Levothyroxine [Synthroid] 50 mcg PO DAILY@0600 tablet 10/26/17 Oxycodone HCl/Acetaminophen [Percocet 5/325] 1 tablet PO Q6H PRN PRN 7 Days #28 tablet 10/26/17 Senna/Docusate Sodium [Senokot-S] 1 tab PO DAILY PRN #20 tab 10/26/17 SimETHICONE [Mylicon] 80 mg PO PCHS PRN #30 tab 10/26/17 The following prescriptions were given: Oxycodone HCl/Acetaminophen [Percocet 5/325] 1 tablet PO Q6H PRN PRN 7 Days #28 tablet PRN Reason: Pain Ibuprofen [Motrin] 800 mg PO Q8H PRN PRN #60 tab PRN Reason: Pain Senna/Docusate Sodium [Senokot-S] 1 tab PO DAILY PRN #20 tab PRN Reason: Constipation SimETHICONE [Mylicon] 80 mg PO PCHS PRN #30 tab PRN Reason: Indigestion/stomach pain Follow-Up: Call to make an appointment with your doctor for an incision check in 1-2 weeks. You will also need a 6 week post- follow up appointment. Please Follow Up With: Marleni Avendaño MD - Call to make an appointment for an incision check in 1-2 [phone] When: You will need a post- check in 6 weeks. Primary Care Physician: Care Physician,No Primary [Primary Care Provider] -
[2017-10-26] MEDS: oxyCODONE 5 MG Tablet PO ×3 (13:26→23:09)
[2017-10-26] MEDS: Senna/Docusate Sodium 1 Tablet PO (18:00)
[2017-10-27 03:00] VITALS: BP 107/55; PULSE 92; RESP 16; TEMP 36.4; O2SAT 97
[2017-10-27] MEDS: oxyCODONE 5 MG Tablet PO ×5 (04:29→23:40)
[2017-10-27] MEDS: Ibuprofen 600 MG Tablet PO ×2 (04:29→20:00)
[2017-10-27] MEDS: Levothyroxine 50 MCG Tablet PO (06:43)
--- NOTE | 2017-10-27 07:06 | PN.OBGYN_ITS ---
Subjective: pt seen at in [facility], breast feeding . pt doing well. pt reports good pain control. Lochia mild. Passing flatus. Pain controlled. - Physical Exam General: Alert, Oriented x3 Abdomen: Soft, Passing Flatus, - - fundus firm. INcision dressing dry and intact Extremities: No Calf Tenderness Vital Signs Temp Pulse Resp BP Pulse Ox 97.5 F L 92 16 107/55 L 97 10/27/17 03:00 10/27/17 03:00 10/27/17 03:00 10/27/17 03:00 10/27/17 03:00 Oxygen Delivery Method Room Air Weight: 100.2 kg Body Mass Index (BMI) 35.6 Intake and Output for Last 24 Hours 10/25/17 10/26/17 10/27/17 23:59 23:59 23:59 Intake Total 3431 / 3431 1835 / 1835 Output Total 1600 / 1600 4550 / 4550 Balance 1831 / 1831 -2715 / -2715 Laboratory Tests Past 24 Hrs 10/26/17 06:40 WBC 13.4 H RBC 3.61 L Hgb 9.7 L Hct 30.0 L MCV 83.1 MCH 26.9 L MCHC 32.3 RDW 15.1 H RDW Differential 44.1 H Plt Count 260 MPV 9.1 Medical Necessity - Tobacco Use Smoking Status: Never smoker Tobacco Use: Non-smoker Assessment/Plan POD#2, doing well routine care pain mgmt
[2017-10-27 07:34] VITALS: BP 101/50; PULSE 74; RESP 18; TEMP 36.8; O2SAT 97
[2017-10-27] MEDS: Senna/Docusate Sodium 1 Tablet PO ×2 (08:35→17:39)
--- NOTE | 2017-10-27 12:00 | NURSING ---
Brought to this RN's attention by pt a firm area where IV was. No redness/swelling noted. Not tender to touch or warm. Will notify physician. Warm compress applied.
[2017-10-27 12:47] LABS: Pathology Specimen OB SEE PATHOLOGY REPORT
[2017-10-27 14:00] VITALS: BP 107/70; PULSE 79; RESP 18; TEMP 36.6; O2SAT 100
[2017-10-27 22:00] VITALS: BP 106/54; PULSE 64; RESP 16; TEMP 36.4; O2SAT 100
[2017-10-28 01:20] VITALS: BP 106/62; PULSE 78; RESP 16; TEMP 36.2; O2SAT 98
[2017-10-28] MEDS: Ibuprofen 600 MG Tablet PO ×2 (04:48→12:42)
[2017-10-28] MEDS: oxyCODONE 5 MG Tablet PO ×2 (04:49→08:52)
[2017-10-28] MEDS: Levothyroxine 50 MCG Tablet PO (06:36)
[2017-10-28 08:00] VITALS: BP 97/53; PULSE 84; RESP 16; TEMP 36.3
--- NOTE | 2017-10-28 08:03 | PCM.PN.OB ---
Subjective: pt seen at bedside, doing well. pt reports good pain control. lochia mild. Breast pumping and attempts at breast feeding- baby in SCN. - Physical Exam General: Alert, Oriented x3 Abdomen: Soft, Non-Distended, - - fundus firm. incision site dry and intact Extremities: No Calf Tenderness Vital Signs Temp Pulse Resp BP Pulse Ox 97.1 F L 78 16 106/62 98 10/28/17 01:20 10/28/17 01:20 10/28/17 01:20 10/28/17 01:20 10/28/17 01:20 Oxygen Delivery Method Room Air Weight: 100.2 kg Body Mass Index (BMI) 35.6 Intake and Output for Last 24 Hours 10/26/17 10/27/17 10/28/17 23:59 23:59 23:59 Intake Total 1835 / 1835 Output Total 4550 / 4550 Balance -2715 / -2715 Medical Necessity - Tobacco Use Smoking Status: Never smoker Tobacco Use: Non-smoker Assessment/Plan POD#3, doing well routine care pain mgmt dc home- will go to hotel status
--- NOTE | 2017-10-28 08:05 | PCM.DC.BLA ---
Discharge Summary Date of Admission: 10/15/17 Date of Discharge: 10/28/17 Summary: patient was admitted with PPROM at 32+ wks gestation- pt was placed on IV abx x2 days and then oral antibiotics. Pt did receive IM celestone and Magnesium on admission. Pt remained stable without signs of infection or compromise. Pt underwent repeat Low transverse c/s and BTL on 10/25/17 without complication. Pt was discharged home on POD#3 in stable condition.
[2017-10-28] MEDS: Senna/Docusate Sodium 1 Tablet PO (08:53)
[2017-10-28 14:00] VITALS: BP 115/70; PULSE 80; RESP 20; TEMP 36.3
[2017-10-29 14:19] LABS: Pathology Specimen OB SEE PATHOLOGY REPORT
== END 2017-10-28 16:00 | disposition home or self-care (01) | DRG 766 ==
PROVIDERS: Advanced Practice Midwife; Admitting Provider Obstetrics & Gynecology; Family Provider Obstetrics & Gynecology; Visit Provider Obstetrics & Gynecology
DX: O42.113 Preterm premature rupture of membranes, onset of labor more than 24 hours following rupture, third trimester (principal); O34.211 Maternal care for low transverse scar from previous cesarean delivery; O69.81X0 Labor and delivery complicated by cord around neck, without compression, not applicable or unspecified; Z37.0 Single live birth; Z30.2 Encounter for sterilization; Z3A.34 34 weeks gestation of pregnancy
CPT/HCPCS: 59025; 59050; 76815; 76816; 85025; 85027; 86850; 86900; 88302; 99218; J7120; A4216; G0378; J0702; J2405

== ENCOUNTER 2020-09-09 08:38 | Observation (INO) | payer OTHER, SELFPAY ==
[2020-09-09] VITALS (12 sets, daily range): BP systolic 97–142; BP diastolic 58–110; PULSE 82–94; RESP 16–18; TEMP 36.2–36.8; O2SAT 97–100; BMI 32.3
--- NOTE | 2020-09-09 09:07 | CT_ITS ---
STUDY: CT ABDOMEN AND PELVIS WITH CONTRAST REASON FOR EXAM: Female, 40 years old. RLQ PAIN AND BLOATING. CROHNS RADIATION DOSAGE (If Supplied By Facility): CTDIvol = ( 15.60 ) mGy, DLP = ( 1068.93 ) mGycm TECHNIQUE: Transaxial images were obtained from the dome of the diaphragm to the symphysis pubis with oral contrast. Oral and amp; IV Gastrografin and amp; 100mL Isovue-370 was administered. Sagittal and coronal images were reconstructed. Individualized dose optimization techniques were used for this CT. COMPARISON: None. FINDINGS: The visualized lung bases are unremarkable. The visualized portions of the heart are within normal limits. Normal liver. Tiny gallstone. Minimal gallbladder wall thickening. Normal spleen. Normal pancreas. Normal bilateral adrenal glands. Normal right kidney. Normal left kidney. There is a small hiatal hernia. Minimal thickening of the terminal ileum. Normal colon. There is a tubular, thick-walled appendix (>7mm), consistent with acute appendicitis. Small mesenteric lymph nodes are seen in the right lower quadrant. Normal abdominal aorta. Normal inferior vena cava. Normal retroperitoneum. Normal urinary bladder. There is a 2.2 cm x 2.2 cm cyst in the right ovary. Small amount of free fluid in the pelvis. Normal abdominal wall. Normal osseous structures. CT/Abdomen/Pelvis WITH Contrast IMPRESSION: Findings with a noncomplicated acute appendicitis with a small mesenteric lymph nodes seen in the right lower quadrant. Minimal changes of the terminal ileum. 2.2 cm x 2.2 cm cyst in the right ovary with a small amount of free fluid in the right hemipelvis. Electronically Signed: Luis Carlos Greer MD at 11:18 EST , Service support ,
--- NOTE | 2020-09-09 09:10 | ED.DCSUM_ITS ---
- ER Visit Summary Date of Service: 09/09/20 Chief Complaint: Abdominal pain History of Present Illness: The patient is a 40 F who presents with abdominal pain that began yesterday. Patient states her pain started in the right lower quadrant and remained there. Patient states it is a dull ache. Patient states it feels gassy. Patient states it is worse when she laid flat and stretched out. Patient admits to nausea but denies any vomiting. Patient denies any diarrhea, melena, or hematochezia. Patient denies any dysuria or hematuria. Patient states she went to the urgent care earlier today. Patient states they did a urinalysis and told her that she needed to come to the emergency department for further evaluation. Patient thinks her urinalysis was normal. Physical Examination: Vital signs are stable. Patient is afebrile. Patient is in no acute distress. Oral mucosa is pink and moist. Neck is supple. Trachea is midline. There is no JVD. Heart was regular rate and rhythm. Lungs are clear and equal bilaterally. Abdomen is soft. Bowel sounds are normal. There is tenderness in the right lower quadrant. There is no rebound. There is mild Rovsing sign. Heel strike was negative. Obturator sign was negative. Cranial nerves II through XII are intact. There are no focal motor or sensory deficits noted. Extremities are intact. There is no calf tenderness or edema. Test Results: CBC and comprehensive metabolic profile were obtained and were within normal limits. Urinalysis does not show any evidence of urinary tract infection. Serum hCG was negative. CT scan of the abdomen pelvis was obtained. There is evidence of acute appendicitis. This was interpreted by the radiologist and reviewed by myself. Emergency Department Course and Treatment: He was given IV fluids and Zofran. Patient was complaining of worsening pain on reevaluation. Patient was given a dose of Dilaudid. Patient was given a dose of Zosyn. Case was discussed with Dr. Smith. She will take the patient to surgery today. Patient understood and was agreeable with the plan. All questions were answered. Disposition: Admit to hospital Impression: Acute appendicitis This note was generated with [employer] dictation software. It may contain incorrect words, spelling, and punctuation that were not noted in review of the chart prior to signing ED Disposition - Plan for ED Patient: Disposition: Acute Care Hospital [facility] Diagnosis: Acute appendicitis Referrals: Care Physician,No Primary [NON-STAFF] -
[2020-09-09 09:18] LABS: Absolute Lymphocyte Count 0.94 X10^3/uL (0.83-4.51); Absolute Neutrophil Count 7.8 X10^3/uL (2.0-7.7); Basophil# 0.03 X10^3/uL; Basophil% 0.3 % (0-1); Eosinophils% 2.1 % (0-5); Hematocrit 39.1 % (37-47); Hemoglobin 12.9 g/dL (12.0-15.0); Lymphocyte # 0.94 X10^3/ul (4.0); Lymphocyte % 9.8 % (19-41); Mean Corpuscular Hgb 28.7 pg (27.0-32.0); Mean Corpuscular Volume 86.9 fL (81-99); Mean Platelet Vol. 8.3 fl (6.2-12.0); Monocyte# 0.61 X10^3/uL; Monocyte% 6.3 % (0-10); NRBC Flagged by Analyzer 0 % (0-5); Neutrophil % 81.2 % (47-70); Platelet Count 320 K/mm3 (150-450); RBC Distribution Width CV 12.1 % (11.6-14.6); RBC Distribution Width SD 38.8 fl (35.1-43.9); White Blood Count 9.6 K/mm3 (4.4-11.0)
[2020-09-09] MEDS: 0.9% Normal Saline 1,000 ML 1000 ML IV (09:18)
[2020-09-09 09:26] LABS: Mucous, Urine 0 SEEN /hpf (<or=2+)
[2020-09-09 09:27] LABS: Internal QC Validated? YES +Cl - CLEAR BKGD; Pregnancy, Serum, hCG Quali. NEGATIVE Negative
[2020-09-09 09:29] LABS: Color, Urine Yellow (Yellow); Glucose, Dipstick Normal (Normal); Leukocyte Esterase-Dipstick 25 /ul (Negative); Nitrite-Dipstick Negative (Negative); Occult Blood-Urine 25 /ul (Negative); Protein-Dipstick Negative (Negative); Urine Bilirubin Dipstick Negative (Negative); Urine Clarity Sl. Cloudy (Clear); Urine Urobilinogen Normal (Normal)
[2020-09-09 09:33] LABS: Ketone-Dipstick 150 mg/dl (Negative)
[2020-09-09 09:33] LABS: ALB/GLOB Ratio 0.9 RATIO (0.9-2.4); AST(SGOT) 10 U/L (15-37); Alanine Aminotransfer ALT/SGPT 18 U/L (13-56); Alkaline Phosphatase 60 U/L (45-117); Anion Gap 2 (5-15); BUN 10 mg/dL (7-18); BUN/Creat Ratio 14.3 RATIO (10-20); Calcium,Total 8.7 mg/dL (8.5-10.1); Chloride 105 mmol/L (98-107); EST Glomerular Filtration Rate 98 mL/min (>60); Est Glom Filt Rate - Afr Amer 119 mL/min (>60); Estimated Creatinine Clearance 99.01 ml/min; Globulin 4.5 g/dL (2.2-4.2); Glucose 99 mg/dL (74-106); Lipase 84 U/L (73-393); Potassium 3.6 mmol/L (3.5-5.1); Protein, Total 8.5 g/dL (6.4-8.2); Sodium Level 135 mmol/L (136-145)
[2020-09-09 09:37] LABS: Bacteria 1+ /hpf (None Seen); Red Blood Cells-Urine 0-5 SEEN /hpf (0-5); Squamous Epithelial Cells - UA 0-5 SEEN /hpf (5-10); White Blood Cells 0-5 SEEN /hpf (0-5)
--- NOTE | 2020-09-09 11:58 | NURSING ---
DR POWELL IN WITH PATIENT
--- NOTE | 2020-09-09 12:02 | NURSING ---
MED SURG APPENDICITIS POWELL
[2020-09-09] MEDS: HYDROmorphone 0.5 MG/0.5 ML SYRINGE IV (12:16)
[2020-09-09] MEDS: Ondansetron 4 MG/2 ML Vial IV ×2 (12:16→16:26)
--- NOTE | 2020-09-09 13:07 | PCM.HP.BLA ---
History and Physical Date of Admission: 09/09/20 Chief Complaint: abdominal pain History of Present Illness: 40 y/o WF presents with abdominal pain beginning yesterday, it has localized to the RLQ. She has nausea but denies emesis. Normal WBC but with left shift of differential. She has had nausea. Abdominal CT scan - There is a small hiatal hernia. Minimal thickening of the terminal ileum. Normal colon. There is a tubular, thick-walled appendix (>7mm), consistent with acute appendicitis. Small mesenteric lymph nodes are seen in the right lower quadrant. Past Medical History: hypothyroidism Past Surgical History: csections x 3 Medications: levothyroxine richard B-12 antidepressant Allergies: morphine - side effect Social history: TOB use denies Review of Systems: General - denies fevers, has not appetite Cardiovascular denies chest pain, denies history of heart attack Pulmonary denies shortness of breath, denies coughing up blood Gastrointestinal as per HPI Neurological denies numbness/weakness of extremities, denies seizures Genitourinary denies burning with urination, denies blood in urine Hematological denies spontaneous/prolonged bleeding Skin denies open non healing wounds Musculoskeletal no new muscle/bone pain Endocrine has hypothyroidism, denies diabetes Psychological denies hallucinations Physical examination: Vital signs Ht: 5'6 Temp 97.1F HR 82 BP 126/76 General WD/WN WF in no apparent distress, alert and oriented, not septic appearing HEENT Normocephalic. EOM intact with sclera clear and no icterus noted. Neck is supple with no jugular venous distention noted. Trachea is midline. Lungs No labored breathing noted, such as retractions. No cough heard. Heart regular Abdomen soft but tender in right lower quadrant with rebound Extremities no calf tenderness noted. No pitting edema noted. Genitourinary/Rectal deferred Skin normal skin integrity. Neurological non focal Psychological normal affect, patient is calm and appropriate Impression: appendicitis Discussion/Plan: I have discussed the above with the patient. I have offered the patient the procedure of laparoscopic appendectomy. I have explained the procedure to the patient. I have counseled the patient as to the risks of the procedure, including but not limited to: infection, bleeding, injury to any blood vessels/nerves, scar tissue, injury to any intrabdominal organs, injury to kidney/ureters, injury to bowel/bladder, intraabdominal abscess/bleeding, hernias at incisional sites, wound infections, possible open procedure, complications of anesthesia, postoperative pneumonia/cardiac problems/blood clots etc. the patient understands. The patient was offered a surgery/procedure. The provider and patient have discussed in detail the risk of exposure to and/or potential harm posed by the COVID-19 virus with having a surgery/procedure at this time versus the risk of delaying the surgery/procedure. It is not possible to know either the risk of delaying the surgery or procedure or chance of getting an infection with perfect accuracy, but a joint decision was made between the patient and the provider to proceed at this time with the scheduled surgery/procedure. She agrees to proceed I have answered all questions to the patient?s satisfaction and the patient has no further questions.
[2020-09-09] MEDS: 0.9% Normal Saline 1,000 ML 100 ML IV ×2 (13:10→14:00)
--- NOTE | 2020-09-09 13:30 | APP_PTH ---
PATIENT: LACEY AL LOC: MS3 U#:[id number] AGE/SX: 40/F ROOM: MS311 RE09/09/[address]: Dr. Ale Smith MD : 1980 BED: 1 DIS: 09/09/2020 SPEC #: [id number] RECD: 09/09/20 14:54 STATUS: ELIZABETH REQ #: [id number] JOE: 09/09/20 13:[address]: Ale Smith DEPT: SURGICAL PATHOLOGY RECD BY: Aimee Hunt ENTERED: 09/12/20 07:47 SP TYPE: APPENDIX OTHR DR: Dr. Jairo Bledsoe MD Tissues: Appendix, NOS Procedures: Surgery Specimen Level III HEADER OPERATION: Laparoscopic appendectomy PRE-OP DIAGNOSIS: Acute appendicitis TISSUE SUBMITTED: Appendix MICROSCOPIC DIAGNOSIS Appendix, appendectomy: Acute appendicitis. Acute serositis. AM:royer 09/13/2020 MICROSCOPIC DESCRIPTION Slides are reviewed. GROSS DESCRIPTION Received in fixative is one container labeled with the patient's name and designated appendix. The specimen consists of an appendix surrounded by yellow-lyn fibrofatty tissue. The appendix measures 8 cm in length and 0.8 cm in average diameter. No gross perforations are evident. Serial sections reveal a patent lumen with fecal material. No mass lesion is identified. Water Main Pipe Layer sections are submitted in two cassettes. / AM:royer 09/12/20 TC:2 CPT: 83030
[2020-09-09] MEDS: Bupiv/Epi 0.5% Mpf 30 ML Vial (14:29)
--- NOTE | 2020-09-09 14:37 | OP.PCM_ITS ---
Report of Operation Date of Procedure: 09/09/20 Pre-Operative Diagnosis: acute appendicitis Post-Operative Diagnosis: acute appendicitis - no perforation Surgery/Procedure Performed:: laparoscopic appendectomy Description of Surgical Findings:: acute appendicitis - not perforated Type of Anesthesia:: General Anesthesiologist: Ramos Zaomra Specimen's removed: appendix Estimated Blood Loss (mL): < 10 ml Fluids Replaced: 1200 ml RL Description of Procedure: After informed consent was obtained, the patient was brought into the Operating Room. Appropriate time out protocol was followed. The patient was placed in the supine position on the operating table. The patient was then placed under g eneral anesthesia by the anesthesia provider. The patient?s abdomen was then prepped with a sterile surgical skin preparation and sterile surgical drapes were placed. The infraumbilical skin fold was grasped with penetrating towel clamps and the skin and subcutaneous tissues were infiltrated with 0.25% marcaine with epinephrine. A incision was then made with a 15 blade scalpel. A Veress needle was then inserted into the intraabdominal cavity and checked to be in the proper position with a normal saline drop test. A CO2 pneumoperitoneum was then created. Once this was achieved, the Veress needle was removed and a 5 mm trocar was placed in its stead. A 5 mm laparoscope was then inserted into the trocar. Careful examination of the intraabdominal contents was then done. There was no evidence of injury to any internal organs from placement of the Veress needle or the trocar. Under direct visualization, a 12mm suprapubic trocar and a 5mm slightly left of midline trocar was then placed into the intraabdominal cavity. The skin and subcutaneous tissues at these sites were first infiltrated with 0.25% marcaine with epinephrine. Attention was then directed to the right lower quadrant. The appendix was visualized. It was directed anteriorly and elongated. The appendix appeared enlarged/edematous/injected/with surrounding inflammation. The mesentery of the appendix was taken down by cauterizing the tissue from the free edge to the base of the appendix using the Harmonic scalpel. Once the base of the appendix was freed of surrounding tissues, then the linear gastrointestinal stapling device was brought into the abdominal cavity via the 12mm port and placed across the base of the appendix. The stapling device was fired, thus stapling across the base of the appendix and transecting it simultaneously. There was no evidence of perforation of the appendix. The base of the appendix was noted to be retrocecal. There was minimal cloudy/purulent peritoneal fluid noted just surrounding the appendix. This was aspirated out and this fluid was not noted elsewhere. The pelvic cavity was vigorously irrigated with normal saline and all irrigant was aspirated out. The appendix was placed in an Endobag and this was brought out through the suprapubic trocar. The appendix was forwarded to Pathology for analysis. The appendiceal stump was carefully examined. There wa s no evidence of any active bleeding or fecal leakage. The surrounding tissues were also examined and there was no evidence of any active bleeding or fecal/bile leakage. The intraabdominal cavity was examined and there was no evidence of any further inflammation or tissue abnormality. The CO2 pneumoperitoneum was released and all trocars were removed intact. The suprapubic fascia was reapproximated with a figure-of-8 vicryl suture. All skin incisions were reapproximated with monocryl suture. Cavilon and steristrips were applied to reinforce skin closure and proper sterile dressings were placed. Sponge, needle, and instrument count were verified and correct at the time of skin closure. The patient was then extubated and brought to the Recovery Room in stable condition. - Complications none noted - Admit VTE Documentation VTE Present on Admission: Yes VTE Mechan Device Prophylaxis: SCD's
--- NOTE | 2020-09-09 15:26 | PCM.DC.APPY ---
Discharge Diet: No Restrictions Discharge Activity: Return to Normal Activity, May not drive while taking narcotic pain medications. Lifting Restrictions: no lifting greater than 20 pounds for 2 weeks Call your doctor if your incision/area has: Continuous Slow Oozing, Foul Smelling Discharge Additional Instructions: Recommended pain control regimen - May take 600 mg ibuprofen (Motrin) and then in 3-4 hours, may take 650 mg acetaminophen (Tylenol), then in 3-4 hours may take 600 mg ibuprofen, then in 3-4 hours may take 650 mg acetaminophen and so on for 2-3 days May take narcotic pain medication for pain that is not controlled by above and at night for comfort through the night Leave dressings in place May get dressings wet in shower - do not scrub in the area and pat dry Do not soak - no tub baths/swimming If dressing appears to be soiled/open at one end/no longer sealed - may remove dressing but leave site uncovered (do not replace with any type of dressing) - leave steristrips in place - may get wet but do not scrub in the area and pat dry Avoid carbonated beverages for a couple of days as they may cause bloating which may cause you discomfort after abdominal surgery Please call for a follow up appointment at the office to be seen in 1-2 weeks for a date and time available at your convenience. Call . Medications to take at Discharge Citalopram [Celexa] 20 mg PO DAILY 09/09/20 Fexofenadine HCl [Lindsay Allergy] 180 mg PO DAILY 09/09/20 Hydrocodone Bitart/Apap 5-325 [[employer] 5MG-325MG] 1 tablet PO Q8H PRN PRN 5 Days #15 tablet 09/09/20 Levothyroxine [Synthroid] 75 mcg PO DAILY 09/09/20 Allergies/Adverse Reactions: Allergies grass pollen Allergy (Verified 09/09/20 08:39) Other morphine Adverse Reaction (Verified 09/09/20 08:39) Nausea The following prescriptions were given: Hydrocodone Bitart/Apap 5-325 [[employer] 5MG-325MG] 1 tablet PO Q8H PRN PRN 5 Days #15 tablet PRN Reason: Pain Score 4-10 Transmission Status: Sent to [facility] Primary Care Physician: Care Physician,No Primary [NON-STAFF] - Test Results: Test results from this visit will be discussed in further detail at your follow-up appointment, if applicable.
[2020-09-09] MEDS: 0.9% Saline Lock 10 ML Syringe IV (16:27)
[2020-09-09] MEDS: HYDROmorphone Inj 0.2 MG/ML SYRINGE IV (16:27)
== END 2020-09-09 20:44 | disposition home or self-care (01) ==
LOC: ED 11:42 → SDC 12:07 → ACINP 12:09 → MS3 13:33 → SDC 09-12 08:03 → MS3 09-12 08:03
PROVIDERS: Admitting Provider Surgery; Emergency Provider Emergency Medicine; PCP Family Medicine; Visit Provider Surgery
PROC: 0DTJ4ZZ Resection of Appendix, Percutaneous Endoscopic Approach (ICD-10-PCS; CPT 44970; principal; 2020-09-09 13:10)
DX: K35.80 Unspecified acute appendicitis (principal); E03.9 Hypothyroidism, unspecified; Z79.899 Other long term (current) drug therapy; K21.9 Gastro-esophageal reflux disease without esophagitis; K50.90 Crohn's disease, unspecified, without complications; Z86.73 Personal history of transient ischemic attack (TIA), and cerebral infarction without residual deficits
CPT/HCPCS: 00840; 44970; 74177; 80053; 81001; 83690; 84703; 85025; 87426; 88304; 96374; 96375; 99284; J7030; Q9967; A4216; J0330; J2405

== ENCOUNTER 2021-06-04 17:28 | Emergency (ER) | payer OTHER, SELFPAY ==
[2021-06-04 17:29] VITALS: BP 99/75; PULSE 112; RESP 16; TEMP 37; O2SAT 99; BMI 35.0
--- NOTE | 2021-06-04 18:07 | EX.ED.DYSGE1 ---
HPI History of Present Illness Chief Complaint: Abd Pain Informant: patient Onset/Context/Timing Onset: Weeks Context: Gradual Onset Timing: Waxes and wanes Current Severity: Moderate Maximum Severity: Moderate Narrative Narrative: Patient presents with multiple complaints. She states she developed abdominal cramping and spasms in late April. She went to see Dr. Xiao. She is scheduled to have ultrasound and biopsy this coming week. Patient states she also has Crohn's so she would did not know if the cramping was secondary to this. Symptoms seem to emma but got worse again over the past couple days. For the past week patient has also had URI symptoms with cough and congestion. She developed a hoarse voice with mild cough. She was initially coughing up green sputum but now seems to be more nonproductive. She denies fever or chills. She was recently treated for a UTI and did have some burning with urination today. [facility] Medical History Crohn's disease Home Medications citalopram 20 mg PO DAILY 09/09/20 [History Last Taken Unknown] fexofenadine 180 mg PO DAILY 09/09/20 [History Last Taken Unknown] levothyroxine 75 mcg PO DAILY 09/09/20 [History Last Taken Unknown] Allergy/AdvReac Type Severity Reaction Status Date / Time grass pollen Allergy Other Verified 06/04/21 17:32 morphine AdvReac Nausea Verified 06/04/21 17:32 Social History Smoking Status: Never smoker ROS ROS ED Constitutional Constitutional ED: Denies chills or fever(s) Eyes Eyes: Denies change in vision ENT ENT ED: Reports sore throat Cardiovascular Cardiovascular: Denies chest pain Respiratory/Chest Respiratory/Chest: Reports cough; Denies dyspnea Gastrointestinal Gastrointestinal: Reports abdominal pain and nausea; Denies diarrhea or vomiting Genitourinary Genitourinary ED: Reports dysuria Musculoskeletal Musculoskeletal: Reports myalgias; Denies back pain Integumentary Denies rash Neurologic Neurologic: Denies headache(s) or weakness Allergic/Immunologic Allergic/Immunologic ED: Denies urticaria EXAM Physical Exam Const Vital Signs: 06/04/21 17:29 Temperature 98.6 F Temperature Source Temporal Pulse Rate 112 H Respiratory Rate 16 Blood Pressure 99/75 Blood Pressure Mean 83 Pulse Ox 99 Oxygen Delivery Method Room Air Positive well nourished and well developed General Appearance ED: well developed HEENT Reports normocephalic and head/scalp atraumatic Eyes PERRL and EOMs intact bilaterally Neck supple Chest Wall inspection of chest normal and palpation of chest normal Resp normal respiratory effort and clear to auscultation bilaterally Cardio regular rate and regular rhythm GI Auscultation: hypoactive bowel sounds Palpation: soft and tender other (Mild diffuse tenderness to palpation.); Negative for guarding or rebound tenderness present Back/Spine no CVA tenderness Extremity normal to inspection Neuro oriented x3 and no sensory deficits noted Sensorium / Orientation: alert Motor Exam: strength 5/5 throughout Psych mental status grossly normal Skin no rashes or lesions noted MDM MDM MDM Narrative Medical decision making narrative: Patient was given Toradol, Zofran, IV fluids. Lab work, Covid test, urinalysis, chest x-ray obtained. Lab Data Attestation: I reviewed the patient's lab results. Labs: Laboratory Results - last 24 hr 06/04/21 06/04/21 06/04/21 18:24 18:24 18:28 WBC 7.2 RBC 4.37 Hgb 12.3 Hct 37.0 MCV 84.7 MCH 28.1 MCHC 33.2 RDW Std Deviation 38.2 RDW Coeff of [place] 12.5 Plt Count 301 MPV 8.5 Immature Gran % (Auto) 0.600 Neut % (Auto) 81.3 H Lymph % (Auto) 9.2 L [place] % (Auto) 5.7 Eos % (Auto) 2.8 Baso % (Auto) 0.4 Absolute Neuts (auto) 5.8 Absolute Lymphs (auto) 0.66 L Nucleated RBC % 0 Sodium 133 L Potassium 3.7 Chloride 104 Carbon Dioxide 22.0 Anion Gap 7 BUN 11 Creatinine 0.72 Estim Creat Clear Calc 96.26 Est GFR (MDRD) Af Amer 115 Est GFR (MDRD) Non-Af 95 BUN/Creatinine Ratio 15.4 Glucose 102 Calcium 8.2 L Total Bilirubin 0.50 Direct Bilirubin 0.16 AST 12 L ALT 15 Alkaline Phosphatase 61 Total Protein 8.0 Albumin 3.2 Globulin 4.8 H Lipase 80 Urine Color Yellow Urine Clarity Clear Urine pH 8.0 Ur Specific [place] 1.010 Urine Protein Negative Urine Glucose (UA) Normal Urine Ketones 50 H Urine Occult Blood 25 H Urine Nitrite Negative Urine Bilirubin Negative Urine Urobilinogen Normal Ur Leukocyte Esterase Negative Urine RBC 5-10 SEEN Urine WBC 0 SEEN Ur Squamous Epith Cells 0-5 SEEN Urine Bacteria RARE Urine Mucus 0 SEEN Radiography Chest X-Ray - ED: 1 View, Read by ED Physician, Normal, Heart, Lungs and Mediastinum Diagnostic Testing: Clinical Impression(s) from Imaging Studies Chest X-Ray 06/04/21 18:30 IMPRESSION: Normal x-ray examination of the chest. Electronically Signed: Isela Mott MD at 19:05 EST Tel , Service support , Treatment and Re-Evaluation Comments:: On repeat evaluation patient resting comfortably. Test results discussed with patient and at bedside. Covid test is negative. Lab work unremarkable with normal white count. Urinalysis shows 50 ketones but no overt sign of infection. Patient was counseled to continue supportive care. She will follow-up with her [employer] this week for testing as previously planned. Discharge Plan Triage Chief Complaint: Abd Pain ED Provider: Charissa Colin Dx/Rx/DC Orders Clinical Impression: Viral syndrome Instructions: ED Viral Syndrome (Adult) Prescriptions: No Action fexofenadine 180 MG tablet 180 mg PO DAILY RF: 0 levothyroxine 75 MCG tablet 75 mcg PO DAILY RF: 0 citalopram 20 MG tablet 20 mg PO DAILY RF: 0 Primary Care Provider: Jairo Bledsoe Referrals: Jairo Bledsoe MD [Primary Care Provider] - 1 Week if not improving Disposition Disposition: Home, Self Care
[2021-06-04] MEDS: 0.9% Normal Saline 1,000 ML 1000 ML IV (18:18)
[2021-06-04] MEDS: Ketorolac 30 MG/ML Syringe IV (18:18)
[2021-06-04] MEDS: Ondansetron 4 MG/2 ML Vial IV (18:18)
--- NOTE | 2021-06-04 18:30 | RAD_ITS ---
STUDY: X-RAY CHEST REASON FOR EXAM: Female, 40 years old. cough diarrhea sinus congestion nausea TECHNIQUE: Frontal portable view of the chest COMPARISON: None. FINDINGS: The lungs are clear and expanded. There is no demonstrated pleural abnormality. Normal size heart. Normal mediastinum and raissa. Normal visualized pulmonary arteries. Normal visualized aortic arch and descending thoracic aorta. Normal visualized thoracic spine. Normal visualized ribs, clavicles, and shoulders. There is no demonstrated abnormality of the visualized soft tissue structures of the upper abdomen. RAD/Chest 1 View (Portable) IMPRESSION: Normal x-ray examination of the chest. Electronically Signed: Isela Mott MD at 19:05 EST Tel , Service support ,
[2021-06-04 18:31] LABS: Absolute Lymphocyte Count 0.66 X10^3/uL (0.83-4.51); Absolute Neutrophil Count 5.8 X10^3/uL (2.0-7.7); Basophil# 0.03 X10^3/uL; Basophil% 0.4 % (0-1); Eosinophils% 2.8 % (0-5); Hemoglobin 12.3 g/dL (12.0-15.0); Lymphocyte # 0.66 X10^3/ul (0.83-4.51); Lymphocyte % 9.2 % (19-41); Mean Corp Hgb Conc 33.2 g/dL (32-36); Mean Corpuscular Hgb 28.1 pg (27.0-32.0); Mean Corpuscular Volume 84.7 fL (81-99); Mean Platelet Vol. 8.5 fl (6.2-12.0); Monocyte# 0.41 X10^3/uL; Monocyte% 5.7 % (0-10); NRBC Flagged by Analyzer 0 % (0-5); Neutrophil # 5.84 X10^3/uL (2.7-7.7); Neutrophil % 81.3 % (47-70); Platelet Count 301 K/mm3 (150-450); RBC Distribution Width CV 12.5 % (11.6-14.6); RBC Distribution Width SD 38.2 fl (35.1-43.9); Red Blood Count 4.37 M/mm3 (4.2-5.4); White Blood Count 7.2 K/mm3 (4.4-11.0)
[2021-06-04 18:34] LABS: Mucous, Urine 0 SEEN /hpf (<or=2+); White Blood Cells 0 SEEN /hpf (0-5)
[2021-06-04 18:43] LABS: Color, Urine Yellow (Yellow); Glucose, Dipstick Normal (Normal); Ketone-Dipstick 50 mg/dl (Negative); Leukocyte Esterase-Dipstick Negative /ul (Negative); Nitrite-Dipstick Negative (Negative); Occult Blood-Urine 25 /ul (Negative); Protein-Dipstick Negative (Negative); Urine Bilirubin Dipstick Negative (Negative); Urine Clarity Clear (Clear); Urine Urobilinogen Normal (Normal)
[2021-06-04 18:57] LABS: AST(SGOT) 12 U/L (15-37); Alanine Aminotransfer ALT/SGPT 15 U/L (13-56); Albumin, Serum 3.2 g/dL (3.2-5.0); Alkaline Phosphatase 61 U/L (45-117); Anion Gap 7 (5-15); BUN 11 mg/dL (7-18); BUN/Creat Ratio 15.4 RATIO (10-20); Bilirubin, Direct 0.16 mg/dL (0.00-0.30); Calcium,Total 8.2 mg/dL (8.5-10.1); Chloride 104 mmol/L (98-107); Creatinine, Serum 0.72 mg/dL (0.55-1.02); EST Glomerular Filtration Rate 95 mL/min (>60); Est Glom Filt Rate - Afr Amer 115 mL/min (>60); Estimated Creatinine Clearance 96.26 ml/min; Globulin 4.8 g/dL (2.2-4.2); Glucose 102 mg/dL (74-106); Lipase 80 U/L (73-393); Potassium 3.7 mmol/L (3.5-5.1); Sodium Level 133 mmol/L (136-145)
[2021-06-04 19:37] LABS: Bacteria RARE /hpf (None Seen); Red Blood Cells-Urine 5-10 SEEN /hpf (0-5); Squamous Epithelial Cells - UA 0-5 SEEN /hpf (5-10)
[2021-06-04 19:53] VITALS: BP 107/77; PULSE 95; RESP 16; O2SAT 98
== END 2021-06-04 19:54 | disposition home or self-care (01) ==
PROVIDERS: Emergency Provider Emergency Medicine; PCP Family Medicine
DX: B34.9 Viral infection, unspecified (principal); K50.90 Crohn's disease, unspecified, without complications; Z87.440 Personal history of urinary (tract) infections; R05.9 Cough, unspecified; R10.9 Unspecified abdominal pain
CPT/HCPCS: 71045; 80048; 80076; 81001; 83690; 85025; 87426; 96361; 96374; 96375; 99283; J7030; J2405

== ENCOUNTER 2024-12-28 15:58 | Emergency (ER) | payer OTHER, SELFPAY ==
[2024-12-28 15:59] VITALS: BP 118/95; PULSE 98; RESP 19; TEMP 36.5; O2SAT 98; BMI 28.9
--- NOTE | 2024-12-28 17:09 | EKG12_ITS ---
Test Reason : GENERAL Blood Pressure : */* mmHG Vent. Rate : 74 BPM Atrial Rate : 74 BPM P-R Int : 126 ms QRS Dur : 92 ms QT Int : 422 ms P-R-T Axes : 52 42 51 degrees QTcB Int : 468 ms Normal sinus rhythm Normal ECG Confirmed by Yaw Titus ([id number]), fashion editor [employer]SE ([id number]) on 12/29/2024 10:02:01 AM Referred By: Confirmed By: Yaw Titus
[2024-12-28] MEDS: 0.9% Normal Saline (1000mL) 1,000 ML 1000 ML IV (17:18)
--- NOTE | 2024-12-28 17:25 | RAD_ITS ---
PROCEDURE: CHEST PA AND LATERAL 12/28/2024 REASON FOR EXAM: EPIGASTRIC ABDOMINAL PAIN TECHNIQUE: Frontal and lateral views of the chest. COMPARISON: Chest radiograph on 06/04/2021 FINDINGS: Hardware: None Heart: The heart size is normal. Mediastinum: The mediastinal contour is unremarkable. Lungs: The lungs are clear. No pleural effusion. Bones: The bones are unremarkable. RAD/Chest PA and Lateral IMPRESSION: No acute cardiopulmonary abnormality. Reading Location: [id number]
--- NOTE | 2024-12-28 17:32 | EDS_ITS ---
HPI History of Present Illness Chief Complaint: Abd Pain Narrative Narrative: Chief complaint and HPI: Epigastric abdominal pain. 44-year-old female with past medical history of Crohn's disease controlled without medication, autoimmune disease with recurrent UTIs presents for evaluation of epigastric abdominal pain. Patient states for the past several days she has had early satiety when she eats. She states yesterday evening she developed sudden severe epigastric abdominal pain which she describes as sharp. Lasted about an hour but then became dull. States the pain is continue to be dull which is why she presents. History of an appendectomy. Denies any history of gastric ulcer. Denies daily alcohol or NSAID use. Denies any fever, chills, shortness of breath, chest pain, nausea, vomiting, dysuria. States at baseline she fluctuates between diarrhea and constipation although denies bloody bowel movements. States she gets scoped every 3 years. Thinks her last 1 was about a year ago which she states was unremarkable. Review of systems: See HPI Medications: As listed on the chart Allergies: As listed on the chart PFSH: Per chart Vital signs: As listed on the chart. Reviewed. Physical exam: Gen: A&O x3, NAD Head: Normocephalic, atraumatic Eyes: No sclera icterus, conjunctiva clear ENT: Moist mucous membranes Neck: Trachea midline, No JVD CV: RRR, no murmurs, no peripheral edema Resp: Lungs CTA BL, no w/r/c GI: Abd soft, non-distended, mild tenderness to palpation in the epigastric region , no r/r/g, negative Kamara's : No CVA tenderness Musc: Full ROM, no deformity Skin: Warm, dry Neuro: Alert, oriented, grossly intact, sensation intact Psych: Cooperative, appropriate mood and affect [facility] Medical History Crohn's disease Home Medications ?Medication ?Instructions ?Recorded ?Last Taken ?Type citalopram 20 mg tablet 20 mg PO DAILY 09/09/2008/22 History levothyroxine 75 mcg tablet 75 mcg PO DAILY 09/09/20 0 12/27/24 History d-mannose 500 mg chewable tablet 500 mg PO DAILY 12/2812/27/24 History (AZO D-Mannose) mecobalamin (vitamin B12) 1,000 1,000 mcg PO DAILY 09/2212/27/24 History mcg chewable tablet multivitamin (Daily Multi-Vitamin 1 tab PO DAILY 12/2812/27/24 History tablet) ondansetron 4 mg disintegrating 4 mg PO Q8H PRN PRN Na usea #10 tabs 12/28/24 Unknown Rx tablet phentermine 37.5 mg capsule 37.5 mg PO DAILY 12/28/24 12/27/24 History topiramate 50 mg tablet 50 mg PO DAILY 12/28/2408/22 History Allergy/AdvReac Type Severity Reaction Status Date / Time grass pollen Allergy Other Verified 12/28/24 16:02 morphine AdvReac Nausea Verified 12/28/24 16:02 Social History Smoking Status: Never smoker EXAM Physical Exam Const Vital Signs: 12/28/24 15:59 12/28/24 18:00 12/28/24 20:00 Temperature 97.7 F L Temperature Source Temporal Pulse Rate 98 79 75 Respiratory Rate 19 H 15 16 Blood Pressure 118/95 H 128/72 H 122/82 H Blood Pressure Mean 102 90 95 Pulse Ox 98 100 100 Oxygen Delivery Method Room Air Room Air Room Air 12/28/24 22:00 12/28/24 22:23 Temperature 97.7 F L Temperature Source Pulse Rate 70 72 Respiratory Rate 15 18 Blood Pressure 133/81 H 128/85 H Blood Pressure Mean 98 99 Pulse Ox 100 100 Oxygen Delivery Method MDM MDM MDM Narrative Medical decision making narrative: 44-year-old female with past medical history of Crohn's disease controlled without medication, autoimmune disease with recurrent UTIs presents for evaluation of epigastric abdominal pain. Associated symptom is several days of early satiety. Yesterday epigastric abdominal pain was sudden and severe. Now dull. Differential diagnosis includes but is not limited to gastritis, PUD, cholelithiasis with biliary colic, cholecystitis, choledocholithiasis, pancreatitis, colitis, UTI suspect less likely CS, . Abdominal pain workup ordered including CT abdomen pelvis. NS bolus ordered for contrast load. Patient offered pain medicine but declined. CBC without leukocytosis or anemia. CMP without significant electrolyte abnormality or SHARRI. Patient does have new mild transaminitis with an AST of 95 and ALT of 84. Alkaline phosphatase not elevated. Lipase unremarkable. Troponin unremarkable. UA shows mild leukocyte esterase but negative WBCs with +1 bacteria. Not consistent with UTI however given the mild leukocyte esterase with bacteria we will send for culture. Chest x-ray was personally reviewed and interpreted by me, ED physician. No pneumothorax, cardiomegaly, pneumonia, effusion. Radiology and agreement. CT abdomen pelvis shows prominent colonic stool burden suggestive of constipation. Rylant hyperdensity in the right posterior pelvis measuring up to 4.4 cm and slightly above simple fluid density, which may represent a cystic lesion or free fluid. Consider pelvic ultrasound. Mild intrahepatic and extrahepatic biliary ductal dilation, questionable tiny gallstones. On reevaluation, patient now requesting pain medicine. Toradol and Zofran ordered. Given her continued pain will obtain ultrasound of the gallbladder. Will obtain ultrasound of the pelvis especially with the patient's recent weight loss, want to rule out ovarian pathology such as cancer although suspect this is a simple cyst. Ultrasound of the pelvis shows a 4.6 x 3.2 cm large cyst within the right ovary. No acute ovarian torsion. IUD. Ultrasound of the gallbladder shows cholelithiasis with additional findings equivocal for acute cholecystitis. Mild wall thickening without pericholecystic fluid, negative Kamara sign. Consider surgical consultation. Mildly dilated common bile duct measures 7 mm. Findings suggestive of mild hepatic steatosis. Given patient still is having some mild abdominal pain, we will consult general surgery although suspect less likely acute cholecystitis. I spoke with Dr. Sandhu, he agrees not consistent with cholecystitis. Follow-up in his office. At this point in time, no clear etiology for this patient's symptoms although may be secondary to biliary colic from cholelithiasis however cannot rule out PUD without endoscopy. Patient date of all the results informed understand a plan. Follow-up with general surgery as well as GI for her hepatic steatosis as well as elevated liver enzymes. May need EGD to rule out PUD. Follow-up with [employer]ED PAY MANAGER for her cyst. Strict return precautions. Zofran as needed for nausea. Patient confirmed understanding the plan. Impression: 1. Epigastric abdominal pain 2. Cholelithiasis 3. Hepatic steatosis with mild transaminitis 4. History of Crohn's disease 5. Right ovarian cyst Lab Data Labs: Laboratory Results - last 24 hr 12/28/24 12/28/24 16:13 17:49 WBC 6.1 RBC 4.47 Hgb 13.6 Hct 40.7 MCV 91.1 MCH 30.4 MCHC 33.4 RDW Std Deviation 42.9 RDW Coeff of Avery 13.1 Plt Count 366 MPV 9.0 Immature Gran % (Auto) 1.000 H Neut % (Auto) 55.7 Lymph % (Auto) 26.6 Summers % (Auto) 8.4 Eos % (Auto) 7.1 H Baso % (Auto) 1.2 H Absolute Neuts (auto) 3.4 Absolute Lymphs (auto) 1.61 Nucleated RBC % 0 Sodium 137 Potassium 3.5 Chloride 106 Carbon Dioxide 19.8 L Anion Gap 11 BUN 9 Creatinine 0.68 L Estim Creat Clear Calc 112.37 Est GFR (MDRD) Non-Af 110 BUN/Creatinine Ratio 13.7 Glucose 88 Calcium 8.8 Total Bilirubin 0.38 AST 95 H ALT 84 H Alkaline Phosphatase 97 Troponin T High Sens < 6 Total Protein 8.4 Albumin 4.2 Globulin 4.2 Albumin/Globulin Ratio 1.0 Lipase 39 Urine Color Yellow Urine Clarity Sl. Cloudy Urine pH 7.0 Ur Specific Wesley 1.010 Urine Protein 30 H Urine Glucose (UA) Normal Urine Ketones 5 H Urine Occult Blood 10 H Urine Nitrite Negative Urine Bilirubin Negative Urine Urobilinogen 1 H Ur Leukocyte Esterase 25 H Urine RBC 0-5 SEEN Urine WBC 0-5 SEEN Ur Squamous Epith Cells 0-5 SEEN Urine Bacteria 1+ Urine Mucus 0 SEEN Radiography Diagnostic Testing: Clinical Impression(s) from Imaging Studies Chest X-Ray 12/28/24 17:25 IMPRESSION: No acute cardiopulmonary abnormality. Reading Location: [facility] Abdomen/Pelvis CT 12/28/24 18:44 IMPRESSION: 1. No definite evidence of an acute intra-abdominal abnormality. There is a prominent colonic stool burden suggestive of constipation. 2. Round hypodensity in the right posterior pelvis measuring up to 4.4 cm and slightly above simple fluid density, which may represent a cystic lesion or free fluid. Consider pelvic ultrasound for further evaluation. 3. Mild intrahepatic and extrahepatic biliary ductal dilatation, with questionable tiny gallstones. Correlate with laboratory analysis and consider GI referral. Reading Location: [id number] Gallbladder Ultrasound 12/28/24 19:37 IMPRESSION: 1. Cholelithiasis, with additional findings which are equivocal for acute cholecystitis. There is mild wall thickening without pericholecystic fluid, and negative sonographic Kamara's sign. Consider Surgical consultation if there is persistent clinical concern. 2. Mildly dilated common bile duct, which measures 7 mm. 3. Findings suggestive of mild hepatic steatosis. Reading Location: [id number] Transvaginal US 12/28/24 19:37 IMPRESSION: 4.6 x 3.2 cm large cyst within the right ovary. No acute ovarian torsion. IUD noted within the uterus. Reading Location: [id number] Discharge Plan Triage Chief Complaint: Abd Pain ED Provider: Moises Mtz Dx/Rx/DC Orders Clinical Impression: Abdominal pain, epigastric Instructions: ED Gallstones with Biliary Colic Prescriptions: New ondansetron 4 mg tablet,disintegrating 4 mg PO Q8H PRN PRN (Reason: Nausea) Qty: 10 0RF No Action levothyroxine 75 MCG tablet 75 mcg PO DAILY citalopram 20 MG tablet 20 mg PO DAILY phentermine 37.5 mg capsule 37.5 mg PO DAILY topiramate 50 mg tablet 50 mg PO DAILY multivitamin [Daily Multi-Vitamin] Tablet 1 tab PO DAILY mecobalamin (vitamin B12) 1,000 mcg tablet,chewable 1,000 mcg PO DAILY AZO D-Mannose 500 mg tablet,chewable 500 mg PO DAILY Primary Care Provider: AgustinlogBrenda perez NP Referrals: Follow-up with your GI physician [Other] - 3-5 Days Yaw Sandhu MD [Med Staff - Active Staff] - 3-5 Days Brenda Roy NP, [employer] [Primary Care Provider] - 3-5 Days Activity Restrictions/Additional Instructions: Your CT scan showed mild intrahepatic and extreme hepatic biliary duct dilation with gallstones. You have signs of fatty liver on ultrasound with AST of 95 and ALT of 84. You need to follow-up with your GI physician for this. You need to follow-up with general surgery for your gallstones. Follow-up with your [employer] SK[employer]ED PAY MANAGER for the 4 .6 x 3.2 large cyst in the right ovary. Return back to the ED if symptoms change or worsen. Print Language: [place] Helen[place] Disposition Disposition: Home, Self Care Discharge Date/Time: 12/28/24 23:06
[2024-12-28 17:33] LABS: Absolute Lymphocyte Count 1.61 X10^3/uL (0.83-4.51); Absolute Neutrophil Count 3.4 X10^3/uL (2.0-7.7); Basophil# 0.07 X10^3/uL; Basophil% 1.2 % (0-1); Eosinophil# 0.43 X10^3/uL; Eosinophils% 7.1 % (0-5); Hematocrit 40.7 % (37-47); Hemoglobin 13.6 g/dL (12.0-15.0); Lymphocyte # 1.61 X10^3/ul (0.83-4.51); Lymphocyte % 26.6 % (19-41); Mean Corp Hgb Conc 33.4 g/dL (32-36); Mean Corpuscular Hgb 30.4 pg (27.0-32.0); Mean Corpuscular Volume 91.1 fL (81-99); Monocyte# 0.51 X10^3/uL; Monocyte% 8.4 % (0-10); NRBC Flagged by Analyzer 0 % (0-5); Neutrophil # 3.38 X10^3/uL (2.7-7.7); Neutrophil % 55.7 % (47-70); Platelet Count 366 K/mm3 (150-450); RBC Distribution Width CV 13.1 % (11.6-14.6); RBC Distribution Width SD 42.9 fl (35.1-43.9); Red Blood Count 4.47 M/mm3 (4.2-5.4); White Blood Count 6.1 K/mm3 (4.4-11.0)
[2024-12-28 17:57] LABS: Mucous, Urine 0 SEEN /hpf (<or=2+)
[2024-12-28 18:00] VITALS: BP 128/72; PULSE 79; RESP 15; O2SAT 100
[2024-12-28 18:02] LABS: Troponin T High Sensitivity < 6 ng/L (<=14)
[2024-12-28 18:02] LABS: Color, Urine Yellow (Yellow); Glucose, Dipstick Normal (Normal); Ketone-Dipstick 5 mg/dl (Negative); Leukocyte Esterase-Dipstick 25 /ul (Negative); Nitrite-Dipstick Negative (Negative); Occult Blood-Urine 10 /ul (Negative); Protein-Dipstick 30 mg/dl (Negative); Urine Bilirubin Dipstick Negative (Negative); Urine Clarity Sl. Cloudy (Clear); Urine Urobilinogen 1 mg/dl (Normal)
[2024-12-28 18:18] LABS: AST(SGOT) 95 U/L (<=31); Alanine Aminotransfer ALT/SGPT 84 U/L (<=34); Albumin, Serum 4.2 g/dL (3.5-5.0); Alkaline Phosphatase 97 U/L (35-104); Anion Gap 11 (5-15); BUN 9 mg/dL (4-19); BUN/Creat Ratio 13.7 RATIO (10-20); Calcium,Total 8.8 mg/dL (7.6-11.0); Carbon Dioxide 19.8 mmol/L (21.0-32.0); Chloride 106 mmol/L (98-108); Creatinine, Serum 0.68 mg/dL (0.70-1.20); EST Glomerular Filtration Rate 110 (>60); Estimated Creatinine Clearance 112.37 ml/min (50-250); Globulin 4.2 g/dL (2.2-4.2); Glucose 88 mg/dL (70-99); Lipase 39 U/L (13-75); Potassium 3.5 mmol/L (3.3-5.1); Protein, Total 8.4 g/dL (5.9-8.4); Sodium Level 137 mmol/L (133-145); Total Bilirubin 0.38 mg/dL (0.00-1.30)
[2024-12-28 18:20] LABS: Bacteria 1+ /hpf (None Seen); Red Blood Cells-Urine 0-5 SEEN /hpf (0-5); Squamous Epithelial Cells - UA 0-5 SEEN /hpf (5-10); White Blood Cells 0-5 SEEN /hpf (0-5)
--- NOTE | 2024-12-28 18:44 | CT_ITS ---
PROCEDURE: ABDOMEN/PELVIS W IV CONT ONLY 12/28/2024 REASON FOR EXAM: HISTORY OF CROHN'S, EPIGASTRIC ABDOMINAL PAIN TECHNIQUE: Abdomen and pelvis CT with intravenous contrast. Coronal and Sagittal reconstruction series were provided. PATIENT PREPARATION: Per protocol CONTRAST: 95 mL Isovue 370 One or more dose reduction techniques were used (e.g., Automated exposure control, adjustment of the mA and/or kV according to patient size, use of iterative reconstruction technique. RADIATION DOSE SUMMARY: CTDlvol: 16.3 mGy DLP: 917 mGycm COMPARISON: CT abdomen and pelvis on 09/09/2020 FINDINGS: Lung bases: Unremarkable Liver: Mild intrahepatic biliary ductal dilatation. Gallbladder: There are punctate hyperdensities within the gallbladder near the fundus. No significant wall thickening. The common bile duct measures 8 mm in diameter. Spleen: Normal size. Pancreas: Normal size without evidence of mass surrounding inflammation or ductal dilation. Adrenals: Unremarkable Kidneys: No hydronephrosis or stone. Bladder: Collapsed, limiting evaluation Reproductive Organs: Retroverted uterus, containing an intrauterine device. Bowel: No obstruction or significant inflammation. Prominent colonic stool burden. Appendix: Surgically absent. Lymph nodes: No significant lymphadenopathy. Vasculature: Unremarkable Peritoneum / Retroperitoneum: Round hypodensity in the right posterior pelvis measuring slightly above simple fluid density and up to 4.4 cm in size. Bones: Bone island in the right iliac wing. Degenerative changes of the spine. CT/Abdomen/Pelvis W IV Cont ONLY IMPRESSION: 1. No definite evidence of an acute intra-abdominal abnormality. There is a pr ominent colonic stool burden suggestive of constipation. 2. Round hypodensity in the right posterior pelvis measuring up to 4.4 cm and slightly above simple fluid density, which may represent a cystic lesion or free fluid. Consider pelvic ultrasound for furthe r evaluation. 3. Mild intrahepatic and extrahepatic biliary ductal dilatation, with question able tiny gallstones. Correlate with laboratory analysis and consider GI referral. Reading Location: [id number]
--- NOTE | 2024-12-28 19:37 | US_ITS ---
PROCEDURE: GALLBLADDER 12/28/2024 REASON FOR EXAM: MILD INTRAHEPATIC AND EXTRAHEPATIC BILIARY DUCTAL COMPARISON: CT abdomen and pelvis 12/28/2024 FINDINGS: Liver: Mild diffuse increase in echogenicity relative to the right kidney. Gallbladder: The gallbladder measures 7.2 cm in length and contains shadowing echogenic stones resulting in a wall echo shadow sign. The gallbladder wall measures 0.4 cm in thickness. No significant pericholecystic fluid. Sonographic Kamara's sign is negative per technologist report. Common bile duct: Slightly dilated measuring 7 mm. Pancreas: Visualized portions are unremarkable. The distal body and tail are obscured by bowel gas. Right kidney: Unremarkable measuring 11.0 x 5.6 x 6.1 cm. US/Gallbladder IMPRESSION: 1. Cholelithiasis, with additional findings which are equivocal for acute chol ecystitis. There is mild wall thickening without pericholecystic fluid, and negative sonographic Kamara's sign. Consider Surgic al consultation if there is persistent clinical concern. 2. Mildly dilated common bile duct, which measures 7 mm. 3. Findings suggestive of mild hepatic steatosis. Reading Location: [id number]
--- NOTE | 2024-12-28 19:37 | US_ITS ---
PROCEDURE: TRANSVAGINAL NON- 12/28/2024 REASON FOR EXAM: HYPODENSE LESION IN THE RIGHT POSTERIOR PELVIS TECHNIQUE: Transvaginal pelvic ultrasound COMPARISON: Same day CT. FINDINGS: Uterus is retroverted and measures 6.4 x 5.3 x 3.6 cm. No fibroids are noted. Endometrial stripe thickness is 3 mm and is hyperechoic. Nabothian cysts are noted. IUD is noted at the midline. Right ovary measures 5.9 x 4.4 x 3.2 cm and left ovary measures 3.6 x 2.1 x 1.5 cm. There is normal vascular flow within bilateral ovaries. 4.6 x 3.2 x 2.5 cm cyst within the right ovary. No free fluid is noted within the cul-de-sac. US/Transvaginal Non- IMPRESSION: 4.6 x 3.2 cm large cyst within the right ovary. No acute ovarian torsion. IUD noted within the uterus. Reading Location: [id number]
[2024-12-28 20:00] VITALS: BP 122/82; PULSE 75; RESP 16; O2SAT 100
[2024-12-28] MEDS: Ketorolac 15 MG/ML Vial IV (20:22)
[2024-12-28] MEDS: Ondansetron 4 MG/2 ML Vial IV (20:22)
[2024-12-28 22:00] VITALS: BP 133/81; PULSE 70; RESP 15; O2SAT 100
[2024-12-28 22:23] VITALS: BP 128/85; PULSE 72; RESP 18; TEMP 36.5; O2SAT 100
== END 2024-12-28 23:06 | disposition home or self-care (01) ==
PROVIDERS: Emergency Provider Surgery; PCP Nurse Practitioner Primary Care; Visit Provider Surgery
DX: R10.13 Epigastric pain (principal); K50.90 Crohn's disease, unspecified, without complications; K80.20 Calculus of gallbladder without cholecystitis without obstruction; K83.8 Other specified diseases of biliary tract; R74.01 Elevation of levels of liver transaminase levels; R68.81 Early satiety; N83.201 Unspecified ovarian cyst, right side; K76.0 Fatty (change of) liver, not elsewhere classified; Z87.440 Personal history of urinary (tract) infections
CPT/HCPCS: 71046; 74177; 76705; 76830; 80053; 81001; 83690; 84484; 85025; 87086; 87088; 93005; 99284; Q9967; A4216; J2405

== ENCOUNTER → 2025-01-04 | Outpatient (CLI) | payer OTHER, SELFPAY ==
[2025-01-04 12:48] LABS: AST(SGOT) 47 U/L (<=31); Alanine Aminotransfer ALT/SGPT 82 U/L (<=34); Albumin, Serum 4.1 g/dL (3.5-5.0); Alkaline Phosphatase 211 U/L (35-104); Anion Gap 9 (5-15); BUN 17 mg/dL (4-19); BUN/Creat Ratio 24.8 RATIO (10-20); Calcium,Total 9.3 mg/dL (7.6-11.0); Chloride 105 mmol/L (98-108); Creatinine, Serum 0.69 mg/dL (0.70-1.20); EST Glomerular Filtration Rate 109 (>60); Globulin 4.1 g/dL (2.2-4.2); Glucose 94 mg/dL (70-99); Potassium 3.8 mmol/L (3.3-5.1); Protein, Total 8.3 g/dL (5.9-8.4); Sodium Level 136 mmol/L (133-145); Total Bilirubin 0.51 mg/dL (0.00-1.30)
== END | disposition home or self-care (01) ==
LOC: LAB 11:51
PROVIDERS: Anesthesiology; PCP Nurse Practitioner Primary Care; Referring Provider Surgery; Visit Provider Surgery
DX: Z01.818 Encounter for other preprocedural examination (principal); K80.20 Calculus of gallbladder without cholecystitis without obstruction
CPT/HCPCS: 36415; 80053; 84443

== ENCOUNTER 2025-01-12 04:35 | Emergency (ER) | payer OTHER, SELFPAY ==
[2025-01-12 04:36] VITALS: BP 138/85; PULSE 71; RESP 16; TEMP 36.9; O2SAT 100; BMI 29.2
[2025-01-12 04:38] VITALS: BP 138/85; PULSE 60; RESP 16; TEMP 36.9; O2SAT 100
--- OUTSIDE RECORDS SUMMARY | 2025-01-12 05:17 | XMS RPT_ITS | CCD ---
Author Organization [facility] Care Team Providers Care Engagement Manager Name Role Phone TEETEE HAQUE Unavailable Unavailable TEETEE HAQUE Unavailable Unavailable NO REFERRING DR Unavailable Unavailable TEETEE HAQUE Unavailable Unavailable TEETEE HAQUE Unavailable Unavailable Brandon Roca Attending Unavailable Sanam Cardenas Primary Care Unavailable Tourlas, Lito Admitting Unavailabl e Tourlas, Lito Attending Unavailabl e Sanam Cardenas Primary Care Unavailable Tourlas, Lito Admitting Unavailabl e Tourlas, Lito Attending Unavailabl e Sanam Cardenas Primary Care Unavailable Tourlas, Lito Unavailable Unavailabl e Tourlas, Lito Unavailable Unavailabl e Tourlas, Lito Unavailable Unavailabl e Tourlas, Lito Unavailable Unavailabl e Tourlas, Lito Unavailable Unavailabl e Tourlas, Lito Unavailable Unavailabl e PRIMARY RICKMAN [id number] RN, [id number] Unavai lable Unavailable Tourlas, Lito Unavailable [phone] Tanja Gil Unavailable Unavailable Podlogar WAREHOUSE DISTRIBUTION SPECIALIST.Brenda DENNIS Primary Care Provider Michael Patton Unavailable Unavailable SAGAR Olguin Attending Provider Truman Olguin Unavailable Podlogar WAREHOUSE DISTRIBUTION SPECIALIST.Brenda DENNIS Primary Care Provider Podlogar WAREHOUSE DISTRIBUTION SPECIALIST.Brenda DENNIS Primary Care Provider Podlogar WAREHOUSE DISTRIBUTION SPECIALIST.Brenda DENNIS Primary Care Provider Podlogar WAREHOUSE DISTRIBUTION SPECIALIST.ARTIFICIAL TEETH INSPECTOR, Brenda Primary Care Provider MICHAEL PATTON Attending Unavailable PODLOGAR, BRENDA Primary Care Unavailable Podlogar MYCOLOGIST-C, Brenda Primary Care Provider Dr. Moises Mtz DO Emergency Provider PODLOGAR, BRENDA Primary Care Unavailable NEELEONORAT MARLENI FREEMAN Attending Unavail able PODLOGAR, BRENDA Primary Care Unavailable SELF Referring Unavailable PODLOGAR, BRENDA Attending Unavailable [facility] Unavailab le PODLOGAR, BRENDA Primary Care Unavailable NEYHART FREEMAN, MARLENI Attending Unavail able NEYHART PETE MARLENI Referring Unavail able PODLOGAR, BRENDA Primary Care Unavailable PODLOGAR, BRENDA Referring Unavailable PODLOGAR, BRENDA Primary Care Unavailable NEYHART MARLENI FREEMAN Attending Unavail able NEYHART MARLENI FREEMAN Referring Unavail able PODLOGAR, BRENDA Primary Care Unavailable BENDARAM AUGUSTA MCCRAY Attending Unavaila ble BENDARAM, AUGUSTA MCCRAY Referring Unavaila ble PODLOGAR, BRENDA Primary Care Unavailable PODLOGAR, BRENDA Primary Care Unavailable NEYHART PETE MARLENI Referring Unavail able PODLOGAR, BRENDA Primary Care Unavailable NEYHART KWESI FREEMANRE Attending Unavail able [facility] Provider Dr. Moises Mtz DO Attending Provider Podlogar MYCOLOGIST-C, Brenda Referring Provider Dr. Yaw Sandhu MD Attending Provider Dr. Yaw Sandhu MD Referring Provider Yaw Sandhu Referring Unavailable Podlogar MYCOLOGIST, Brenda Primary Care Unavailable Yaw Sandhu Attending Unavailable Podlogar MYCOLOGIST, Brenda Primary Care Unavailable Moises Mtz Attending Unavailabl e Podlogar MYCOLOGIST, Brenda Primary Care Unavailable Yaw Sandhu Attending Unavailable Podlogar MYCOLOGIST, Brenda Primary Care Unavailable Podlogar MYCOLOGIST, Brenda Referring Unavailable Yaw Sandhu Attending Unavailable Podlogar MYCOLOGIST, Brenda Primary Care Unavailable Yaw Sandhu Attending Unavailable Yaw Sandhu Referring Unavailable Allergies Allergy Classification Reported Allergen(s) Allergy Type Date of Onset Reaction(s) Facility (10 sources) Pollen; Translations: [Pollen] Propensity to adverse reactions (disorder) Sneezing [facility] Repository (1 source) Ragweed pollen allergen; Translations: [ragweed pollen allergen extract] Propensity to adverse reactions to drug (disorder) [facility] Repository (1 source) mixed grass pollens allergen extract; Translations: [mixed grass pollens allergen extract] Propensity to adverse reactions to drug (disorder) [facility] Repository (9 sources) ambrosia artemisiifolia pollen Allergy to substance (finding) Sneezing [facility] Work Phone: (20 sources) Morphine; Translations: [MORPHINE] Drug Allergy 01-09-20 16 Vomiting, GI Upset [facility] (20 sources) Seasonal allergy; Translations: [SEASONAL ALLERGIES] Allergy to substance 01-09-20 16 Other: See Comments, Cough, Itching [facility] (4 sources) Grass pollen; Translations: [grass pollen] Allergy to substance 12-29-19 25 Other [facility] Medications Current Medications Medication Drug Class(es) Dates Sig (Normalized) Sig (Original) Cetirizine (4 sources) Histamine-1 Receptor Antagonist cetirizine HCl (ZYRTEC ORAL) Take by mouth. Active citalopram 20 mg oral tablet (20 sources) Serotonin Reuptake Inhibitor Start: 06-15-2024 take 1 tablet by mouth once daily citalopram (CELEXA) 20 mg tablet Indications: Anxiety and depression Take 1 tablet by mouth once daily. 90 tablet 1 06/15/2024 Active Start: 09-09-2020 End: 06-12-2024 take 1 tablet by mouth once daily citalopram (CELEXA) 20 mg tablet Indications: Anxiety and depression Take 1 tablet by mouth once daily. 90 tablet 1 06/15/2024 Active Start: 03-02-2020 [facility] 2 tablets by [facility] daily Citalopram Hydrobromide 10 MG Oral Tablet TAKE 2 TABLET Daily Quantity: 120 Refills: 0 Lito Hernandez MD Start : 02-Mar-2020 Active Start: 03-02-2020 take 1 tablet by donnie once daily Citalopram Hydrobromide 10 MG Oral Tablet Take 1 tablet daily Quantity: 60 Refills: 0 Lito Hernandez MD Start : 02-Mar-2020 Active Comment on above: Take 1 tablet by donnie once daily. D-Mannose (Azo D-Mannose) 500 mg tablet,chewable (3 sources) Start: take 1 tablet by mouth once daily, then take 1 tablet by mouth once D-Mannose (Azo D-Mannose) 500 mg tablet,chewable Active 500 mg PO DAILY December 28, 2024 12:00am levonorgestrel 0.165749 mg/hr intrauterine system (20 sources) Progestin, Progestin-containin g Intrauterine Device Start: 024 End: 029 levonorgestrel (MIRENA) 21 mcg/24 hours (8 yrs) 52 mg IUD Indications: Encounter for IUD insertion 1 Each by INTRAUTERINE route as directed. 1 Each 11/26/2023 11/24/2028 Active Comment on above: 1 Each by INTRAUTERI NE route one time only. levothyroxine sodium 0.075 mg oral tablet (20 sources) l-Thyroxine Start: 021 End: 025 take 1 tablet by mouth once daily before breakfast levothyroxine (SYNTHROID) 75 mcg tablet Indications: Thyroid disease Take 1 tablet by mouth daily before breakfast. 90 tablet 1 08/10/2024 Active Start: 08-24-2019 take 1 tablet by donnie once daily Levothyroxine Sodium 75 MCG Oral Tablet Take 1 tablet daily Quantity: 90 Refills: 2 Lito Hernandez MD Start : 24-Aug-2019 Active Synthroid Active take 1 capsule by mo [facility] once daily levothyroxine 75 mcg (0.075 mg) oral capsule ; 1 cap(s) orally once a day Quantity: 0 Refills: 0 Ordered: 13-Jul-2020 Brandon Olguin Generic Substitution Allowed Comment on above: Take 1 tablet by donnie daily before breakfast. mecobalamin 1 mg chewable tablet (3 sources) Start: take 1 tablet by mouth once daily Mecobalamin (Vitamin B12) 1,000 mcg tablet,chewable Active 1000 ug PO DAILY December 28, 2024 12:00am Multivitamin (Daily Multi-Vitamin) tablet (3 sources) Start: Multivitamin (Daily Multi-Vitamin) tablet Active 1 {tbl} PO DAILY December 28, 2024 12:00am multivitamin tablet (11 sources) take 1 tablet by mouth once daily multivitamin tablet Take 1 tablet by mouth once daily. Active take 1 tablet by mouth once americo y multivitamin tablet Take 1 tablet by mouth once daily. 0 Active nitrofurantoin, macrocrystals 25 mg / nitrofurantoin, monohydrate 75 mg oral capsule (7 sources) Nitrofuran Antibacterial Start: 10-15-2024 nitrofurantoin monohydrate and macrocrystal (MACROBID) 100 mg capsule Take one tablet after intercourse 30 capsule 1 10/15/2024 Active Start: 07-16-2024 End: 07-23-2024 take 1 capsule by mouth twice daily nitrofurantoin monohydrate and macrocrystal (MACROBID) 100 mg capsule Take 1 capsule by mouth two times a day for 7 days. 14 capsule 07/16/2024 07/23/2024 Active Start: 02-12-2022 End: 02-12-2022 nitrofurantoin monohydrate a nd macrocrystal (MACROBID) 100 mg capsule Take 1 capsule by mouth one time only for 1 dose. Take one tablet after intercourse 30 capsule 1 02/12/2022 02/12/2022 Active Start: 12-25-2021 take 1 capsule by [facility] every twelve hours Macrobid 100 MG 1 capsule with food Orally every 12 hrs for 7 day(s) November, Active Comment on above: Take 1 capsule by mo [facility] one time only for 1 dose. Take one tablet after intercourse phentermine hydrochloride 37.5 mg oral capsule (20 sources) Sympathomimetic Amine Anorectic Start: 10-28-19 End: 01-26-20 take 1 capsule by mouth once daily Phentermine 37.5 mg capsule Active 37.5 mg PO DAILY December 28, 2024 12:00am Start: 02-20-2023 End: 01-27-2024 take 31-31.9 tablets by mouth once daily before breakfast Phentermine HCl 37.5 mg tablet Indications: Class 1 obesity without serious comorbidity with body mass index (BMI) of 31.0 to 31.9 in adult, unspecified obesity type Take 1 tablet by mouth daily before breakfast for 90 days. 90 tablet 0 10/29/2023 01/27/2024 Active Start: 11-26-2022 End: 12-26-2022 take 31-31.9 tablets by mouth once daily before breakfast Phentermine HCl 37.5 mg tablet Indications: Class 1 obesity without serious comorbidity with body mass index (BMI) of 31.0 to 31.9 in adult, unspecified obesity type Take 1 tablet by mouth daily before breakfast for 30 days. 30 tablet 2 11/26/2022 12/26/2022 Active Start: 10-23-2022 End: 11-22-2022 take 31-31.9 tablets by mouth once daily before breakfast Phentermine HCl 37.5 mg tablet Indications: Class 1 obesity without serious comorbidity with body mass index (BMI) of 31.0 to 31.9 in adult, unspecified obesity type Take 1 tablet by mouth daily before breakfast for 30 days. 30 tablet 0 10/23/2022 11/22/2022 Active Start: 05-22-2022 End: 08-16-2024 take 31-31.9 capsules by mouth once daily before breakfast Phentermine HCl 37.5 mg capsule Indications: Class 1 obesity without serious comorbidity with body mass index (BMI) of 31.0 to 31.9 in adult, unspecified obesity type Take 1 capsule by mouth daily before breakfast for 90 days. 90 capsule 05/18/2024 08/16/2024 Active Comment on above: Take 1 capsule by mo [facility] daily before breakfast for 30 days. Take 1 tablet by donnie daily before breakfast for 30 days. Take 1 tablet by donnie th daily before breakfast for 90 days. 24 hr phentermine 7.5 mg / topiramate 46 mg extended release oral capsule (9 sources) Sympathomimetic Amine Anorectic Start: 09-13-19 End: 10-14-19 take 30-30.9 capsules by mouth once daily phentermine-topiram ate ER (QSYMIA) 7.5-46 mg 24 Hr Capsule Indications: Class 1 obesity with body mass index (BMI) of 30.0 to 30.9 in adult, unspecified obesity type, unspecified whether serious comorbidity present , BMI 30.0-30.9,adult Take 1 capsule by mouth once daily for 30 days. Start after initial 14 days of low dose of 3.75-23mg. 30 capsule 2 09/13/2022 10/13/2022 Active Start: 09-13-2022 End: 09-27-2022 phentermine-topiramate ER (Q SYMIA) 3.75-23 mg 24 Hr Capsule Indications: Class 1 obesity with body mass index (BMI) of 30.0 to 30.9 in adult, unspecified obesity type, unspecified whether serious comorbidity present , BMI 30.0-30.9,adult Take 1 capsule by mouth once daily for 14 days. Take one tablet daily x 14 days- then increase dose. 14 capsule 0 09/13/2022 09/27/2022 Active Comment on above: Take 1 capsule by mo [facility] once daily for 14 days. Take one tablet daily x 14 days- then increase dose. Take 1 capsule by mo [facility] once daily for 30 days. Start after initial 14 days of low dose of 3.75-23mg. sulfamethoxazole 800 mg / trimethoprim 160 mg oral tablet (7 sources) Dihydrofolate Reductase Inhibitor Antibacterial, Sulfonamide Antimicrobial Start: 03-27-2024 End: 03-30-2024 sulfamethoxazole-t rimethoprim (BACTRIM DS) 800-160 mg per tablet Take 1 tablet by mouth two times a day for 3 days. FOR 3 DAYS. 6 tablet 03/27/2024 03/30/2024 Active Start: 10-07-2021 End: 10-13-2021 take 1 tablet by mouth twice daily Bactrim DS 800 mg-160 mg oral tablet ; 1 tab(s) orally 2 times a day Quantity: 14 Refills: 0 Ordered: 07-Oct-2021 Michael Patton Start: 07-Oct-2021 End: 13-Oct-2021 Generic Substitution Allowed Comments: Avoid prolonged or excessive exposure to direct and/or artificial sunlight while taking this medication.Finish all this medication unless otherwise directed by prescriber.Medication should be taken with plenty of water. Start: 04-25-2021 End: 05-01-2021 take 1 tablet by mouth every twelve hours sulfamethoxazole-trimethoprim 800 mg-160 mg oral tablet ; 1 tab(s) orally every 12 hours Quantity: 14 Refills: 0 Ordered: 25-Apr-2021 Tanja Gil Start: 25-Apr-2021 End: 01-May-2021 Generic Substitution Allowed Comments: Avoid prolonged or excessive exposure to direct and/or artificial sunlight while taking this medication.Finish all this medication unless otherwise directed by prescriber.Medication should be taken with plenty of water. Start: 07-13-2020 End: 07-19-2020 take 1 tablet by mouth twice daily Bactrim DS 800 mg-160 mg oral tablet ; 160 milligram(s) orally 2 times a day Quantity: 14 Refills: 0 Ordered: 13-Jul-2020 Murtaza Barber Start: 13-Jul-2020 End: 19-Jul-2020 Status: Other Generic Substitution Allowed Comments: Avoid prolonged or excessive exposure to direct and/or artificial sunlight while taking this medication.Finish all this medication unless otherwise directed by prescriber.Medication should be taken with plenty of water. Comment on above: Avoid prolonged or e xcessive exposure to direct and/or artificial sunlight while taking this medication.Finish all this medication unless otherwise directed by prescriber.Medication should be taken with plenty of water. topiramate 50 mg oral tablet (20 sources) Start: 12-29-19 take 1 tablet by mouth once daily Topiramate 50 mg tablet Active 50 mg PO DAILY December 28, 2024 12:00am Start: 05-18-2024 End: 04-25-2025 take 1 tablet by mouth twice daily topiramate (TOPAMAX) 50 mg tablet Indications: Other migraine without status migrainosus, not intractable , Poor sleep Take 1 tablet by mouth two times a day. 180 tablet 1 10/27/2024 04/25/2025 Active Start: 02-20-2023 End: 07-26-2024 take 1 tablet by mouth once daily topiramate (TOPAMAX) 50 mg tablet Indications: Other migraine without status migrainosus, not intractable , Poor sleep Take 1 tablet by mouth once daily. 90 tablet 1 01/28/2024 05/18/2024 Discontinued Comment on above: Take 1 tablet by donnie th once daily. vitamin b12 1 mg oral tablet (20 sources) Vitamin B12 Start: 08-15-2022 take 1 tablet by mouth once daily cyanocobalamin (VITAMIN B-12) 1,000 mcg tab Take 1 tablet by mouth once daily. 08/15/2022 Active Vitamin B12 ; tracy blingual once a day Quantity: 0 Refills: 0 Ordered: 13-Jul-2020 Brandon Olguin Generic Substitution Allowed Comment on above: Take 1 tablet by donnie th once daily. Completed/Discontinued Medications Medication Drug Class(es) Dates Sig (Normalized) Sig (Original) acetaminophen 325 mg / HYDROcodone bitartrate 5 mg oral tablet (3 sources) Opioid Agonist Start: 09-09-2020 End: 09-14-2020 Hydrocodone-Acetam inophen 1 TABLET tablet Discontinued 1 {tbl} PO EVERY 8 HOURS NEEDED as needed for Pain Score 4-10 15 5 September 09, 2020 September 13, 2020 1:00am September 14, 2020 1:03am aspirin 81 mg delayed release oral tablet (6 sources) Platelet Aggregation Inhibitor, Nonsteroidal Anti-inflammatory Drug Start: 06-07-2017 End: 10-26-2017 take 1 tablet by mouth once daily Aspirin (Aspir-Low) 81 MG Tablet. Discontinued 81 mg PO DAILY June 07, 2017 1:00am October 26, 2017 8:01am take 1 tablet by mouth once americo y aspirin 81 mg oral tablet ; 1 tab(s) orally once a day Quantity: 0 Refills: 0 Ordered: 27-Jul-2019 Nayely Smith Status: Other Generic Substitution Allowed Calcium Carbonate / vitamin D3 (7 sources) CALCIUM CARBONATE/VITAMIN D3 (CALCIUM + D ORAL) Take by mouth. 2 gummies at bedtime 0 Active Comment on above: Take by mouth. 2 gum mies at bedtime cyanocobalamin, vitamin B-12, (VITAMIN B-12 SUBLINGUAL) (10 sources) cyanocobalamin, vitamin B-12, (VITAMIN B-12 SUBLINGUAL) Dissolve under the tongue. 0 Active Comment on above: Dissolve under the t ongue. 24 hr ferrous sulfate 142 mg extended release oral tablet (20 sources) Start: 09-17-19 23 End: 03-09-20 24 take 1 tablet by mouth every other day Ferrous Sulfate (SLOW FE) 142 mg (45 mg iron) TbER Indications: Hx of iron deficiency anemia Take 1 tablet by mouth every other day. 15 tablet 3 09/17/2022 03/09/2024 Discontinued (Course of therapy completed) Comment on above: Take 1 tablet by donnie th every other day. fexofenadine hydrochloride 60 mg oral tablet (20 sources) Histamine-1 Receptor Antagonist Start: 09-09-19 End: 10-16-19 fexofenadine (LINDSAY) 60 mg tablet Take 60 mg by mouth as needed (allergies). 09/09/2020 10/15/2024 Discontinued Start: 09-09-2020 End: 12-28-2024 take 1 tablet by mouth once daily Fexofenadine 180 MG tablet Discontinued 180 mg PO DAILY September 09, 2020 1:00am December 28, 2024 5:46pm Comment on above: Take by mouth. fluconazole 150 mg oral tablet (2 sources) Azole Antifungal Start: End: take 1 tablet by mouth once Diflucan 150 mg oral tablet ; 1 tab(s) orally once Quantity: 1 Refills: 0 Ordered: 25-Apr-2021 Tanja Gil Start: 25-Apr-2021 End: 25-Apr-2021 Generic Substitution Allowed Comments: Do not take this drug if you are .Finish all this medication unless otherwise directed by prescriber. Comment on above: Do not take this gertrude g if you are .Finish all this medication unless otherwise directed by prescriber. MEDICATION, NON-DATABASE (8 sources) End: 5 MEDICATION, NON-DATABASE Inject 2 Each subcutaneously every other week. Allergy shots 10/15/2024 Discontinued MEDICATION, NON- DATABASE Inject 2 Each subcutaneously every other week. Allergy shots Active MEDICATION, NON- DATABASE Inject 2 Each subcutaneously every other week. Allergy shots 0 Active Multivitamin capsule (20 sources) End: 03-09-2024 take 1 capsule by mouth once daily Multivitamin capsule Take 1 capsule by mouth once daily. 0 03/09/2024 Discontinued (Course of therapy completed) take 1 capsule by mouth once alex ly Multivitamin capsule Take 1 capsule by mouth once daily. 0 Active Comment on above: Take 1 capsule by mo uth once daily. Multivitamins-Iron tab (7 sources) take 1 tablet by mouth once daily Multivitamins-Iron tab Take 1 tablet by mouth once daily. 0 Active Comment on above: Take 1 tablet by donnie th once daily. naproxen 500 mg oral tablet (6 sources) Nonsteroidal Anti-inflammatory Drug Start: take 1 tablet by mouth twice daily at mealtime Naproxen 500 MG Oral Tablet TAKE 1 TABLET Twice daily. Take with food and 8 oz of water. Do not take ibuprofen, aleve or motrin with this. Quantity: 28 Refills: 0 Sharitakari Lito Start : 02-Nov-2019 Active nitrofurantoin, macrocrystals 100 mg oral capsule (3 sources) Nitrofuran Antibacterial Start: End: take 1 capsule by mouth every twelve hours nitrofurantoin macrocrystals 100 mg oral capsule ; 1 cap(s) orally every 12 hours Quantity: 14 Refills: 0 Ordered: 31-Jan-2021 Tanja Gil Start: 31-Jan-2021 End: 06-Feb-2021 Status: Other Generic Substitution Allowed Comments: Finish all this medication unless otherwise directed by prescriber.May discolor urine or feces.Take with food or milk. Comment on above: Finish all this medi cation unless otherwise directed by prescriber.May discolor urine or feces.Take with food or milk. ondansetron 4 mg disintegrating oral tablet (3 sources) Serotonin-3 Receptor Antagonist Start: 025 End: take 1 tablet by mouth every eight hours as needed for nausea Ondansetron 4 mg tablet,disintegrating Discontinued 4 mg PO EVERY 8 HOURS NEEDED as needed for Nausea December 28, 2024 12:00am January 04, 2025 11:04am phenazopyridine hydrochloride 200 mg oral tablet (11 sources) Start: End: take 1 tablet by mouth every eight hours as needed phenazopyridine (PYRIDIUM) 200 mg tablet Take 1 tablet by mouth three times a day as needed. 9 tablet 03/27/2024 05/18/2024 Discontinued Start: 12-25-2021 take 1 tablet by donnie th every eight hours Pyridium 200 MG 1 tablet after meals Orally Three times a day for 3 days November, Active Start: 04-25-2021 End: 10-09-2021 take 1 tablet by mouth three times daily at mealtime Pyridium 200 mg oral tablet ; 1 tab(s) orally 3 times a day Quantity: 9 Refills: 0 Ordered: 07-Oct-2021 Michael Patton Start: 25-Apr-2021 End: 09-Oct-2021 Generic Substitution Allowed Comments: May discolor urine or feces.Medication should be taken with plenty of water.Take with food or milk. Start: 01-31-2021 End: 02-02-2021 take 1 tablet by mouth three times daily at mealtime Pyridium 200 mg oral tablet ; 1 tab(s) orally 3 times a day Quantity: 9 Refills: 0 Ordered: 31-Jan-2021 Tanja Gil Start: 31-Jan-2021 End: 02-Feb-2021 Status: Other Generic Substitution Allowed Comments: May discolor urine or feces.Medication should be taken with plenty of water.Take with food or milk. Start: 07-13-2020 End: 07-15-2020 take 1 tablet by mouth three times daily at mealtime Pyridium 100 mg oral tablet ; 1 tab(s) orally 3 times a day Quantity: 9 Refills: 0 Ordered: 13-Jul-2020 Muratza Barber Start: 13-Jul-2020 End: 15-Jul-2020 Status: Other Generic Substitution Allowed Comments: May discolor urine or feces.Medication should be taken with plenty of water.Take with food or milk. Comment on above: May discolor urine o r feces.Medication should be taken with plenty of water.Take with food or milk. tirzepatide, weight loss (ZEPBOUND) 2.5 mg/0.5 mL pen injector (2 sources) Start: 10-15-2024 End: 10-27-2024 tirzepatide, weight loss (ZEPBOUND) 2.5 mg/0.5 mL pen injector Indications: Class 1 obesity with body mass index (BMI) of 34.0 to 34.9 in adult, unspecified obesity type, unspecified whether serious comorbidity present Inject 2.5 mg subcutaneously one time a week. 2 mL 10/15/2024 10/27/2024 Discontinued Start: 10-15-2024 End: 11-14-2024 tirzepatide, weight loss (ZE PBOUND) 2.5 mg/0.5 mL pen injector Indications: Class 1 obesity with body mass index (BMI) of 34.0 to 34.9 in adult, unspecified obesity type, unspecified whether serious comorbidity present Inject 2.5 mg subcutaneously one time a week. 2 mL 10/15/2024 11/14/2024 Active Problems Active Problems Problem Classification Problem Date Documented Date Episodic/Chronic Abdominal pain (7 sources) Epigastric pain; Translations: [Epigastric pain] Onset: 01-04-2025 12-28-2024 Episodic Anxiety disorders (5 sources) Generalized anxiety disorder; Translations: [Mixed anxiety and depressive disorder] 10-29-2023 Chronic Appendicitis and other appendiceal conditions (3 sources) Acute appendicitis; Translations: [Unspecified acute appendicitis] 09-09-2020 Episodic Asthma (9 sources) Asthma; Translations: [Asthma] Chronic Biliary tract disease (2 sources) Cholangiectasis; Translations: [Other specified diseases of biliary tract] 01-06-2025 Chronic Biliary tract disease (4 sources) Biliary calculus; Translations: [Calculus of gallbladder without cholecystitis without obstruction] Onset: 01-05-2025 01-04-2025 Episodic Complication of device; implant or graft (2 sources) Malposition of intrauterine contraceptive device; Translations: [Displacement of intrauterine contraceptive device, initial encounter] 11-21-2023 Episodic Contraceptive and procreative management (2 sources) Intrauterine contraceptive device in situ; Translations: [Presence of (intrauterine) contraceptive device] 10-29-2023 Episodic Deficiency and other anemia (1 source) Deficiency anemias; Translations: [Nutritional anemia, unspecified] Episodic Endometriosis (2 sources) Uterine adenomyosis; Translations: [Adenomyosis of uterus] 11-21-2023 Chronic Headache; including migraine (8 sources) Migraine; Translations: [Other migraine, not intractable, without status migrainosus] Onset: 10-15-2024 02-20-2023 Chronic Immunity disorders (3 sources) Polyclonal gammopathy; 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 Malaise and fatigue (8 sources) Malaise and fatigue; Translations: [Other malaise] Onset: 10-15-2024 05-16-2023 Episodic Mood disorders (1 source) Depressive disorder; Translations: [Other specified depressive episodes] Chronic Nutritional deficiencies (15 sources) Cobalamin deficiency; Translations: [Iron deficiency] Onset: 10-15-2024 02-20-2023 Episodic Other aftercare (1 source) Long-term current use of drug therapy; Translations: [Other assisted (current) drug therapy] 10-15-2024 Episodic Other female genital disorders (4 sources) Abnormal uterine bleeding; Translations: [Abnormal uterine and vaginal bleeding, unspecified] 10-29-2023 Chronic Other female genital disorders (1 source) Vaginal discharge; Translations: [Other specified noninflammatory disorders of vagina] Episodic Other female genital disorders (1 source) Vaginal odor; Translations: [Other specified noninflammatory disorders of vagina] 07-16-2024 Episodic Other hematologic conditions (6 sources) Ferritin level low; Translations: [Abnormal level of blood mineral] Episodic Other hematologic conditions (1 source) H/O: anemia - iron deficient; Translations: [Personal history of diseases of the blood and blood-forming organs and certain disorders involving the immune mechanism] Episodic Other non-traumatic joint disorders (9 sources) Shoulder pain; Translations: [Right shoulder pain] Episodic Other nutritional; endocrine; and metabolic disorders (14 sources) Obesity; Translations: [Obesity, unspecified] Chronic Other nutritional; endocrine; and metabolic disorders (1 source) Body mass index 30+ - obesity; Translations: [Body mass index (BMI) 30.0-30.9, adult] Chronic Other nutritional; endocrine; and metabolic disorders (1 source) Body mass index (BMI) 34.0-34.9, adult; Translations: [Class 1 obesity with body mass index (BMI) of 34.0 to 34.9 in adult, unspecified obesity type, unspecified whether serious comorbidity present] Onset: 10-15-2024 Chronic Other nutritional; endocrine; and metabolic disorders (1 source) Obesity, unspecified; Translations: [Class 1 obesity without serious comorbidity with body mass index (BMI) of 31.0 to 31.9 in adult, unspecified obesity type] Onset: 01-28-2024 Chronic Other nutritional; endocrine; and metabolic disorders (1 source) Body mass index (BMI) 31.0-31.9, adult; Translations: [Class 1 obesity without serious comorbidity with body mass index (BMI) of 31.0 to 31.9 in adult, unspecified obesity type] Onset: 01-28-2024 Chronic Other nutritional; endocrine; and metabolic disorders (1 source) Unintentional weight gain; Translations: [Abnormal weight gain] Episodic Other screening for suspected conditions (not mental disorders or infectious disease) (20 sources) Patient encounter status; Translations: [Encounter for screening mammogram for malignant neoplasm of breast] Onset: 01-28-2024 Episodic Other skin disorders (17 sources) Mass of axilla; Translations: [Mass of right axilla] Episodic Regional enteritis and ulcerative colitis (20 sources) Crohn's disease; Translations: [Crohn's disease of colon] Onset: 02-04-2017 02-04-2017 Chronic Residual codes; unclassified (2 sources) Flushing; Translations: [Flushing] 02-20-2023 Episodic Residual codes; unclassified (7 sources) Difficulty sleeping ; Translations: [Sleep deprivation] 02-20-2023 Episodic Residual codes; unclassified (1 source) Sleep deprivation; Translations: [Poor sleep] Onset: 10-15-2024 Episodic Residual codes; unclassified (1 source) Failed encounter; Translations: [Failure to attend appointment with reason given] 12-31-2024 Episodic Respiratory failure; insufficiency; arrest (adult) (1 source) Respiratory failure; insufficiency; arrest (adult); Translations: [Failure to attend appointment with reason given] Onset: 12-31-2024 Retinal detachments; defects; vascular occlusion; and retinopathy (20 sources) Retinal disorder; Translations: [Unspecified retinal disorder] Onset: 04-18-2017 04-18-2017 Chronic Rheumatoid arthritis and related disease (20 sources) Inflammatory polyarthropathy; Translations: [Inflammatory polyarthropathy] Onset: 10-23-2022 Chronic Thyroid disorders (19 sources) Hypothyroidism; Translations: [Hypothyroidism, unspecified] Onset: 10-15-2024 Chronic Unclassified (4 sources) UTI? 01-31-2021 Comment on above: UTI? Unclassified (1 source) Burning with urination 10-07-2021 Unclassified (1 source) Class 1 obesity with body mass index (BMI) of 34.0 to 34.9 in adult, unspecified obesity type, unspecified whether serious comorbidity present; Translations: [Class 1 obesity with body mass index (BMI) of 34.0 to 34.9 in adult, unspecified obesity type, unspecified whether serious comorbidity present] Onset: 10-15-2024 Unclassified (1 source) Class 1 obesity without serious comorbidity with body mass index (BMI) of 31.0 to 31.9 in adult, unspecified obesity type; Translations: [Class 1 obesity without serious comorbidity with body mass index (BMI) of 31.0 to 31.9 in adult, unspecified obesity type] Onset: 05-18-2024 Urinary tract infections (8 sources) Urinary tract infectious disease; Translations: [Urinary tract infection, site not specified] Onset: 12-25-2021 Resolved: 12-25-2021 01-31-2021 Episodic Comment on above: UTI Viral infection (3 sources) Viral disease; Translations: [Viral infection, unspecified] 06-12-2021 Episodic Past or Other Problems Problem Classification Problem Date Documented Da te Episodic/Chronic Blindness and vision defects (20 sources) Scotoma involving central area, right eye; Translations: [Centrocecal scotoma] Onset: 05-04-2016 05-04-2016 Episodic Genitourinary symptoms and ill-defined conditions (20 sources) Bacteriuria; Translations: [Bacteriuria] Onset: 04-16-2017 Resolved: 03-27-2024 04-16-2017 Episodic Other complications of (20 sources) Multigravida of advanced maternal age; Translations: [Supervision of elderly multigravida, unspecified trimester] Onset: 04-18-2017 Resolved: 03-27-2024 04-18-2017 Episodic Other complications of (20 sources) H/O: premature delivery; Translations: [Supervision of other high risk pregnancies, unspecified trimester] Onset: 04-18-2017 Resolved: 12-03-2017 12-03-2017 Episodic Other gastrointestinal disorders (20 sources) History of Crohns disease; Translations: [Personal history of other diseases of the digestive system] Onset: 04-18-2017 04-18-2017 Episodic Other nutritional; endocrine; and metabolic disorders (20 sources) H/O: thyroid disorder; Translations: [Personal history of other endocrine, nutritional and metabolic disease] Onset: 04-18-2017 04-18-2017 Episodic Other skin disorders (20 sources) Alopecia; Translations: [Nonscarring hair loss, unspecified] Onset: 02-04-2017 02-04-2017 Episodic Previous (20 sources) ; Translations: [Maternal care for unspecified type scar from previous delivery] Onset: 04-18-2017 Resolved: 12-03-2017 12-03-2017 Episodic Residual codes; unclassified (1 source) Flushing; Translations: [Hot flashes] Onset: 01-28-2024 Episodic Retinal detachments; defects; vascular occlusion; and retinopathy (9 sources) Drusen of retina of right eye; Translations: [Retinal drusen of right eye] Thyroid disorders (20 sources) Disorder of thyroid gland; Translations: [Disorder of thyroid, unspecified] Onset: 05-22-2022 Episodic Unclassified (9 sources) Protein level - finding; Translations: [Elevated total protein] NEGATED: Highlighted row has not occurred!Residual codes; unclassified (20 sources) Disease Episodic Results Test Name Value Interpretation Reference Range Facility TSH DL <= 0.005 mIU/L QnOrde red By: Tashi Myrick on 01-05-2025 TSH Qn 2.360 uIU/mL 0.300-4.20 0 [facility] Thyroid Stim Hormone (TSH)on 01-05-2025 TSH 2.360 uIU/mL Normal 0.300-4.20 0 [facility] Comment on above: Order Comment: ADD O N Performed By: #### L 501.9520 #### [facility] [address] [place] [address], [address] Anion gap in Serum or Plasma Ordered By: Yaw Sandhu on 01-04-2025 Anion gap [Moles/Vol] 9 mmol/L 5-15 [facility] BUN/creatinine ratioOrdered By: Yaw Sandhu on 01-04-2025 Urea nitrogen/Creatinine [Mass ratio] 24.8 mg/mg High 10- [facility] Bilirubin, totalOrdered By: Yaw Sandhu on 01-04-2025 Bilirubin [Mass/Vol] 0.51 mg/dL 0.00-1.30 [facility] Carbon dioxide, total [Moles /volume] in Central venous bloodOrdered By: Yaw Sandhu on 01-04-2025 CO2 [Moles/Vol] 22.0 mmol/L 21.0-32.0 [facility] Chloride assayOrdered By: Loretta Sandhu on 01-04-2025 Chloride [Moles/Vol] 105 mmol/L 98-108 [facility] Comprehensive Metabolic Prof ilon 01-04-2025 Albumin [Mass/Vol] 4.1 g/dL Normal 3.5-5.0 [facility] Comment on above: Performed By: #### L [id number] #### [facility] [address] [place], [address] Albumin/Globulin [Mass ratio] 1.0 {ratio} Normal 0.9-2.4 [facility] Comment on above: Performed By: #### L [id number] #### [facility] [address] [place], [address] ALK PHOS 211 U/L High 35-104 [facility] Comment on above: Performed By: #### L [id number] #### [facility] [address] [place], [address] ALT [Catalytic activity/Vol] 82 U/L High <=34 [facility] Comment on above: Performed By: #### L [id number] #### [facility] [address] [place], [address] AST [Catalytic activity/Vol] 47 U/L High <=31 [facility] Comment on above: Performed By: #### L [id number] #### [facility] [address] [place], [address] Bilirubin [Mass/Vol] 0.51 mg/dL Normal 0.00-1.30 [facility] Comment on above: Performed By: #### L [id number] #### [facility] [address] [place], [address] BUN/CRE 24.8 RATIO High 10-20 [facility] Comment on above: Performed By: #### L [id number] #### [facility] [address] [place], [address] Calcium [Mass/Vol] 9.3 mg/dL Normal 7.6-11.0 [facility] Comment on above: Performed By: #### L [id number] #### [facility] [address] [place], [address] Chloride [Moles/Vol] 105 mmol/L Normal 98-108 [facility] Comment on above: Performed By: #### L [id number] #### [facility] [address] [place], [address] CO2 [Moles/Vol] 22.0 mmol/L Normal 21.0-32.0 [facility] Comment on above: Performed By: #### L [id number] #### [facility] [address] [place], [address] Creatinine [Mass/Vol] 0.69 mg/dL Low 0.70-1.20 [facility] Comment on above: Performed By: #### L [id number] #### [facility] [address] [place], [address] GAP 9 Normal 5-15 [facility] Comment on above: Performed By: #### L [id number] #### [facility] [address] [place], [address] GFR/1.73 sq M.predicted among non-blacks MDRD (S/P/Bld) [Vol rate/Area] 109 mL/min/{1.73_m2} Normal >60 [facility] Comment on above: Result Comment: mL/m in/1.73m2 CKD-EPI Creatinine Equation (2020) Performed By: #### L [id number] #### [facility] [address] [place], [address] Globulin (S) [Mass/Vol] 4.1 g/dL Normal 2.2-4.2 [facility] Comment on above: Performed By: #### L [id number] #### [facility] [address] [place], [address] Glucose [Mass/Vol] 94 mg/dL Normal 70-99 [facility] Comment on above: Performed By: #### L [id number] #### [facility] [address] [place], [address] Potassium [Moles/Vol] 3.8 mmol/L Normal 3.3-5.1 [facility] Comment on above: Performed By: #### L [id number] #### [facility] [address] [place], [address] Sodium [Moles/Vol] 136 mmol/L Normal 133-145 [facility] Comment on above: Performed By: #### L [id number] #### [facility] [address] [place], [address] T PROT 8.3 g/dL Normal 5.9-8.4 [facility] Comment on above: Performed By: #### L [id number] #### [facility] [address] [place], [address] Urea nitrogen [Mass/Vol] 17 mg/dL Normal 4-19 [facility] Comment on above: Performed By: #### L [id number] #### [facility] [address] [place], [address] Glomerular filtration rate ( GFR) estimation/1.73 sq m using serum, plasma, or whole bOrdered By: Yaw Sandhu on 01-04-2025 GFR/1.73 sq M.predicted among non-blacks MDRD (S/P/Bld) [Vol rate/Area] 109 mL/min/{1.73_m2} >60 [facility] Comment on above: mL/min/1.73m2 CKD-EP I Creatinine Equation (2020) Laboratory - Chemistry and C hemistry - challengeOrdered By: Yaw Sandhu on 01-04-2025 AST [Catalytic activity/Vol] 47 U/L High <32 [facility] Potassium measurement (mass/ volume)Ordered By: Yaw Sandhu on 01-04-2025 Potassium (Unsp spec) [Mass/Vol] 3.8 mmol/L 3.3-5.1 [facility] Serum creatinine measurement (mass/volume)Ordered By: Yaw Sandhu on 01-04-2025 Creatinine [Mass/Vol] 0.69 mg/dL Low 0.70-1.20 [facility] Serum globulin measurementOr dered By: Yaw Sandhu on 01-04-2025 Globulin (S) [Mass/Vol] 4.1 g/dL 2.2-4.2 [facility] Serum glucose measurement (m ass/volume)Ordered By: Yaw Sandhu on 01-04-2025 Glucose [Mass/Vol] 94 mg/dL 70-99 [facility] Serum or plasma alanine garvin otransferase (ALT) measurementOrdered By: Yaw Sandhu on 01-04-2025 ALT [Catalytic activity/Vol] 82 U/L High <35 [facility] Serum or plasma albumin alivia urement (mass/volume)Ordered By: Yaw Sandhu on 01-04-2025 Albumin [Mass/Vol] 4.1 g/dL 3.5-5.0 [facility] Serum or plasma albumin/glob ulin mass ratioOrdered By: Yaw Sandhu on 01-04-2025 Albumin/Globulin [Mass ratio] 1.0 {ratio} 0.9-2.4 [facility] Serum or plasma alkaline isaías sphatase measurementOrdered By: Yaw Sandhu on 01-04-2025 ALP [Catalytic activity/Vol] 211 U/L High 35-104 [facility] Serum or plasma calcium alivia urement (mass/volume)Ordered By: Yaw Sandhu on 01-04-2025 Calcium [Mass/Vol] 9.3 mg/dL 7.6-11.0 [facility] Serum or plasma urea nitroge n measurement (mass/volume)Ordered By: Yaw Sandhu on 01-04-2025 Urea nitrogen [Mass/Vol] 17 mg/dL 4-19 [facility] Sodium levelOrdered By: Damion Sandhu on 01-04-2025 Sodium [Moles/Vol] 136 mmol/L 133-145 [facility] Surgery Visit Reporton 01-04 Surgery Visit Report [facility] [address] [place] [address] OFFICE VISIT Date of Service: 01/04/25 MR#: [id number] Acct: [id number] Name: JENNIFER MANNING Rep #: [id number] : 1980 Provider: Dr. Yaw fitzpatrick MD Age/Sex: 44/F Location: [facility] Status: Signed Intake Vital Signs 12/28/24 15:59 01/04/25 11:01 Height 5 ft 6 in 5 ft 6 in Weight: 179 lb 8 oz BMI 29.0 BP 121/75 H Blood Pressure Location Rt brachial Position Sitting Respiration 18 Pulse 70 Pulse Source Monitor Temp 97.2 F L Temp Source Temporal Pulse Oximetry (%) 99 Oxygen Delivery Method room air Intake Visit Reasons: ER F/U - GALLBLADDER Chief Complaint: ED f/u- gallbladder Accompanied by: Mother Is patient in pain?: Yes Allergies grass pollen Allergy (Verified 01/05/25 13:53) Other morphine Adverse Reaction (Verified 01/05/25 13:53) Nausea PFSH Medical History (Updated 01/06/25 @ 18:[address] Yaw Sandhu MD) Arthritis Thyroid disease Blood clot in eye History of Crohn's disease Hypothyroid Non-smoker History of echocardiogram Cholelithiases Crohn's disease Surgical History (Updated 01/05/25 @ 14:03 by Shefali Avila) History of esophagogastroduodenoscopy (EGD) History of colonoscopy History of appendectomy History of Social History Smoking Status: Never smoker HPI HPI HPI: Patient is a 44-year-old female who presents for emergency room follow-up after emergency room evaluation on 12/29/2024. She presents today with her mother. She states that on 12/27/2024 she experienced sudden onset midepigastric discomfort as she was preparing dinner. She states that it immediately presented with a severe intensity and was as if someone was taking her hand and squeezing her in that part of her abdomen. She states that she dropped to her knees because of the intensity. She also notes a stabbing quality that lasted for about 45 minutes. She notes that she is normally stupid stubborn with pain (citing how she drove herself to the hospital with a diagnosis of appendicitis) but this pain is far more intense. She states that after initial 45 minutes she experienced a constant pressure as if like she had done thousand sit ups. She is uncertain if there was any associated nausea. She also notes a rather full feeling but reminds me that she did not have dinner at this point. Patient states that since her presentation she has not had any recurrence of the stabbing discomfort but there is persistent pressure of varying intensity. She notes that this intensity progressed to the point over this week and that she considered returning to the emergency department but then it spontaneously improved. With these symptoms she has been reluctant to take much of a diet but has limited herself to a salad with the tiniest bit of [place] dressing as well as smoothies and protein shakes. She does add that she had some chicken salad yesterday at a graduation libertarian and did okay. Outside of the above patient states that her bowel movements are not moving a ton she estimates them to be occurring at a frequency of 1 every other day. She acknowledges some occasional reflux and heartburn. Patient's ER workup notable for CT imaging which showed mild intra and extrahepatic biliary dilation and right upper quadrant ultrasound was performed given mild elevation of LFTs and the dilated common bile duct. ROS General General: Yes weight change (loss intentional); No appetite, fatigue, colon cancer, breast cancer or weakness HEENT HEENT: No difficulty swallowing, eye injury, eye surgery, swollen glands or hoarseness Endo Endocrine: Yes thyroid disease; No diabetes mellitus, thyroid cancer, Hair loss, heat intolerance or cold intolerance Skin Skin: No rash or changing moles Musc Musculoskeletal: Yes arthritis; No back problems, rheumatoid arthritis, gout or joint pain Cardio Cardiovascular: No murmur, pacemaker, heart disease, atrial fibrillation, high blood pressure, heart attack, heart stent, palpitations, shortness of breath with exertion or chest pain Psych Psychiatric: Yes anxiety; No depression or hearing voices Resp Respiratory: No shortness of breath, No sleep apnea, No cough, No COPD, Yes asthma, No emphysema and No wheezing Gastro Gastrointestinal: Yes abdominal pain, Yes nausea or vomiting, Yes diarrhea, Yes constipation, No blood in stool, No acid reflux, No hemorrhoids, No ulcers, Yes gallbladder problem and No black,tarry stools Yamil Hematologic: No blood thinners, No blood disorders, No bleeding, Yes anemia and Yes blood clots Neuro Neurologic: No numbness, No tingling and No weakness Exam C (more content not included)... Normal [facility] Total proteinOrdered By: Adrian Sandhu on 01-04-2025 Protein [Mass/Vol] 8.3 g/dL 5.9-8.4 [facility] CNOVon 12-31-2024 CNOV Office Visit (FAMPWS ) -- JENNIFER MANNING ([id number]) 1980 F Date Time Provider Department 12/31/24 9:00 AM BRENDA ROY During your visit today, we recorded the following information about you: Brenda Roy APRN.CNP 12/31/2024 10:27 AM Signed Patient was late to appointment. Asked to wait to be seen however she as unable to wait. Brenda Roy APRN.CNP Referring Provider: SELF [[id number]] Allergies As of Date: 12/31/2024 Noted Allergy Reaction MORPHINE 01/09/2016 8 - GI Upset 11 - Vomiting SEASONAL ALLERGIES 01/09/2016 3 - Cough 9 - Itching Comments: sneezing Date Reviewed: 10/15/2024 Reviewed by: Delma Castelan MA - Fully Assessed Primary Visit Diagnosis:Failure to attend appointment with reason given [Z91.198] Prescriptions as of 12/31/2024 - topiramate (TOPAMAX) 50 mg tablet Take 1 tablet by mouth two times a day. - Phentermine HCl 37.5 mg capsule Take 1 capsule by mouth daily before breakfast for 90 days. - cetirizine HCl (ZYRTEC ORAL) Take by mouth. - nitrofurantoin monohydrate and macrocrystal (MACROBID) 100 mg capsule Take one tablet after intercourse - levothyroxine (SYNTHROID) 75 mcg tablet Take 1 tablet by mouth daily before breakfast. - citalopram (CELEXA) 20 mg tablet Take 1 tablet by mouth once daily. - multivitamin tablet Take 1 tablet by mouth once daily. - levonorgestrel (MIRENA) 21 mcg/24 hours (8 yrs) 52 mg IUD 1 Each by INTRAUTERINE route as directed. - cyanocobalamin (VITAMIN B-12) 1,000 mcg tab Take 1 tablet by mouth once daily. 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] 05/04/2016 Crohn's disease of colon without complication (*02/04/2017 Alopecia [L65.9] 02/04/2017 Scotoma involving central area [H53.419] 02/07/2017 GBS bacteriuria [R82.71] 04/16/2017 03/27/2024 Advanced maternal age in multigravida [O09.529] 04/18/2017 03/27/2024 with history of section, ant*04/18/2017 12/03/2017 History of delivery, currently *04/18/2017 12/03/2017 History of thyroid disorder [Z86.39] 04/18/2017 History of Crohn's disease [Z87.19] 04/18/2017 Retinal disorder [H35.9] 04/18/2017 Patient requested diagnostic testing [Z01.89] 04/18/2017 12/03/2017 Thyroid disease [E07.9] 05/22/2022 Polyarthropathy, 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 Submit a new specimen if indicated. Normal [facility] Comment on above: Performed By: #### M 100.2200 #### [facility] [address] [place], [address] 12 Lead EKGon 12-28-2024 12 Lead EKG [facility] [address] [place] [address] 12 Lead EKG 12/28/24 1722 MR#: [id number] Acct: [id number] Name: JENNIFER MANNING Rep #: [id number] : 1980 44 From: Yaw Titus MD Attending Dr: Status: DEP ER Ordering Dr: Moises Mtz DO Date: 5 Location: ED Sex: F C Admitted: Test Reason : GENERAL Blood Pressure : */* mmHG Vent. Rate : 74 BPM Atrial Rate : 74 BPM P-R Int : 126 ms QRS Dur : 92 ms QT Int : 422 ms P-R-T Axes : 52 42 51 degrees QTcB Int : 468 ms Normal sinus rhythm Normal ECG Confirmed by Yaw Titus ([id number]), photo editor DENICE ROUSE ([id number]) on 12/29/2024 10:02:01 AM Referred By: Confirmed By: Yaw Titus 12/29/241001 Date Yaw Titus MD CC: MYCOLOGIST-C Brenda Roy; Dr. Moises Mtz DO Signed Normal [facility] Abdomen/Pelvis W IV Cont ONL Yon 12-28-2024 Abdomen/Pelvis W IV Cont ONLY [facility] [address] [place] [address] Abdomen/Pelvis W IV Cont ONLY MR#: [id number] Acct: [id number] Name: JENNIFER MANNING Rep #: [id number] : 1980 F 44 From: Sreekanth Arauz MD PCP: Brenda Roy, MYCOLOGIST-C Status: REG ER Study: Abdomen/Pelvis W IV Cont ONLY Date of Exam: Exam# [id number] Ordering Dr: Moises Mtz DO PROCEDURE: ABDOMEN/PELVIS W IV CONT ONLY 12/28/2024 REASON FOR EXAM: HISTORY OF CROHN'S, EPIGASTRIC ABDOMINAL PAIN TECHNIQUE: Abdomen and pelvis CT with intravenous contrast. Coronal and Sagittal reconstruction series were provided. PATIENT PREPARATION: Per protocol CONTRAST: 95 mL Isovue 370 One or more dose reduction techniques were used (e.g., Automated exposure control, adjustment of the mA and/or kV according to patient size, use of iterative reconstruction technique. RADIATION DOSE SUMMARY: CTDlvol: 16.3 mGy DLP: 917 mGycm COMPARISON: CT abdomen and pelvis on 09/09/2020 FINDINGS: Lung bases: Unremarkable Liver: Mild intrahepatic biliary ductal dilatation. Gallbladder: There are punctate hyperdensities within the gallbladder near the fundus. No significant wall thickening. The common bile duct measures 8 mm in diameter. Spleen: Normal size. Pancreas: Normal size without evidence of mass surrounding inflammation or ductal dilation. Adrenals: Unremarkable Kidneys: No hydronephrosis or stone. Bladder: Collapsed, limiting evaluation Reproductive Organs: Retroverted uterus, containing an intrauterine device. Bowel: No obstruction or significant inflammation. Prominent colonic stool burden. Appendix: Surgically absent. Lymph nodes: No significant lymphadenopathy. Vasculature: Unremarkable Peritoneum / Retroperitoneum: Round hypodensity in the right posterior pelvis measuring slightly above simple fluid density and up to 4.4 cm in size. Bones: Bone island in the right iliac wing. Degenerative changes of the spine. CT/Abdomen/Pelvis W IV Cont ONLY IMPRESSION: 1. No definite evidence of an acute intra-abdominal abnormality. There is a prominent colonic stool burden suggestive of constipation. 2. Round hypodensity in the right posterior pelvis measuring up to 4.4 cm and slightly above simple fluid density, which may represent a cystic lesion or free fluid. Consider pelvic ultrasound for further evaluation. 3. Mild intrahepatic and extrahepatic biliary ductal dilatation, with questionable tiny gallstones. Correlate with laboratory analysis and consider GI referral. Reading Location: [id number] CC: KHADIJAH Gutierrez Podlogar; Dr. Moises Mtz DO Cert Occupational Therapy Asst: Signed Normal [facility] Absolute lymphocyte countOrd ered By: Moises Mtz on 12-28-2024 Lymphocytes Auto (Unsp spec) [#/Vol] 1.61 10*3/uL 0.83-4.51 [facility] Absolute neutrophil countOrd ered By: Moises Mtz on 12-28-2024 Neutrophils (Bld) [#/Vol] 3.4 10*3/uL 2.0-7.7 [facility] Anion gap in Serum or Plasma Ordered By: Moises Mtz on 12-28-2024 Anion gap [Moles/Vol] 11 mmol/L 5-15 [facility] Automated lymphocyte count a s percentage of total leukocytesOrdered By: Moises Mtz on 12-28-2024 Lymphocytes/100 WBC Auto (Unsp spec) 26.6 % 19- [facility] BUN/creatinine ratioOrdered By: [facility]den on 12-28-2024 Urea nitrogen/Creatinine [Mass ratio] 13.7 mg/mg 10-20 [facility] Basophil percentageOrdered B y: Moises Mtz on 12-28-2024 Basophils/100 WBC (Bld) 1.2 % High 0-1 [facility] Bilirubin Test strip Ql (U)O rdered By: Moisespatricia Mtz on 12-28-2024 Bilirubin Ql (U) Negative Negative [facility] Bilirubin, totalOrdered By: [place] on 12-28-2024 Bilirubin [Mass/Vol] 0.38 mg/dL 0.00-1.30 [facility] CBC W/Diff, Automatedon Absolute Lymph 1.61 X10 3/uL Normal 0.83-4.51 [facility] Comment on above: Performed By: #### L 500.4050, L501.2450, L100.0100 #### [facility] [address] [place], [address] Absolute Neut 3.4 X10 3/uL Normal 2.0-7.7 [facility] Comment on above: Performed By: #### L 500.4050, L501.2450, L100.0100 #### [facility] [address] [place], [address] Basophils/100 WBC (Bld) 1.2 % High 0-1 [facility] Comment on above: Performed By: #### L 500.4050, L501.2450, L100.0100 #### [facility] [address] [place], [address] Eosinophils/100 WBC (Bld) 7.1 % High 0-5 [facility] Comment on above: Performed By: #### L 500.4050, L501.2450, L100.0100 #### [facility] [address] [place], [address] Erythrocyte distribution width (RBC) [Ratio] 13.1 % Normal 11.6-14.6 [facility] Comment on above: Performed By: #### L 500.4050, L501.2450, L100.0100 #### [facility] [address] [place], [address] Hematocrit (Bld) [Volume fraction] 40.7 % Normal 37-47 [facility] Comment on above: Performed By: #### L 500.4050, L501.2450, L100.0100 #### [facility] [address] [place], [address] Hemoglobin (Bld) [Mass/Vol] 13.6 g/dL Normal 12.0-15.0 [facility] Comment on above: Performed By: #### L 500.4050, L501.2450, L100.0100 #### [facility] [address] [place], [address] IG% 1.000 High 0.0-0.9 [facility] Comment on above: Result Comment: IG% - Immature Granulocytes (promyelocytes, myelocytes and metamyelocytes) > 1% indicates that a LEFT SHIFT is Present. Performed By: #### L 500.4050, L501.2450, L100.0100 #### [facility] [address] [place], [address] Lymphocytes/100 WBC (Bld) 26.6 % Normal 19-41 [facility] Comment on above: Performed By: #### L 500.4050, L501.2450, L100.0100 #### [facility] [address] [place], [address] MCH (RBC) [Entitic mass] 30.4 pg Normal 27.0-32.0 [facility] Comment on above: Performed By: #### L 500.4050, L501.2450, L100.0100 #### [facility] [address] [place], [address] MCHC (RBC) [Mass/Vol] 33.4 g/dL Normal 32-36 [facility] Comment on above: Performed By: #### L 500.4050, L501.2450, L100.0100 #### [facility] [address] [place], [address] MCV (RBC) [Entitic vol] 91.1 fL Normal 81-99 [facility] Comment on above: Performed By: #### L 500.4050, L501.2450, L100.0100 #### [facility] [address] [place], [address] Monocytes/100 WBC (Bld) 8.4 % Normal 0-10 [facility] Comment on above: Performed By: #### L 500.4050, L501.2450, L100.0100 #### [facility] [address] [place], [address] Neutrophils/100 WBC (Bld) 55.7 % Normal 47-70 [facility] Comment on above: Performed By: #### L 500.4050, L501.2450, L100.0100 #### [facility] [address] [place], [address] Nucleated RBC (Bld) [#/Vol] 0 10*3/uL Normal 0-5 [facility] Comment on above: Performed By: #### L 500.4050, L501.2450, L100.0100 #### [facility] [address] [place], [address] Platelet mean volume (Bld) [Entitic vol] 9.0 fL Normal 6.2-12.0 [facility] Comment on above: Performed By: #### L 500.4050, L501.2450, L100.0100 #### [facility] [address] [place], [address] Platelets (Bld) [#/Vol] 366 10*3/uL Normal 150-450 [facility] Comment on above: Performed By: #### L 500.4050, L501.2450, L100.0100 #### [facility] [address] [place], [address] RBC (Bld) [#/Vol] 4.47 10*6/uL Normal 4.2-5.4 [facility] Comment on above: Performed By: #### L 500.4050, L501.2450, L100.0100 #### [facility] [address] [place], [address] RDW SD 42.9 fl Normal 35.1-43.9 [facility] Comment on above: Performed By: #### L 500.4050, L501.2450, L100.0100 #### [facility] [address] [place], [address] WBC (Bld) [#/Vol] 6.1 10*3/uL Normal 4.4-11.0 [facility] Comment on above: Performed By: #### L 500.4050, L501.2450, L100.0100 #### [facility] [address] [place], [address] Carbon dioxide, total [Moles /volume] in Central venous bloodOrdered By: Moises Mtz on 12-28-2024 CO2 [Moles/Vol] 19.8 mmol/L Low 21.0-32.0 [facility] Chest PA and Lateralon 12-28 Chest PA and Lateral [facility] Imaging Services [address] [place], [place] [address] Chest PA and Lateral MR#: [id number] Acct: [id number] Name: JENNIFER MANNING Rep #: [id number] : 1980 F 44 From: Sreekanth Arauz MD PCP: Brenda Roy NP-C Status: REG ER Study: Chest PA and Lateral Date of Exam: 12/28/24 Exam# [id number] Ordering Dr: Moises Mtz DO PROCEDURE: CHEST PA AND LATERAL 12/28/2024 REASON FOR EXAM: EPIGASTRIC ABDOMINAL PAIN TECHNIQUE: Frontal and lateral views of the chest. COMPARISON: Chest radiograph on 06/04/2021 FINDINGS: Hardware: None Heart: The heart size is normal. Mediastinum: The mediastinal contour is unremarkable. Lungs: The lungs are clear. No pleural effusion. Bones: The bones are unremarkable. RAD/Chest PA and Lateral IMPRESSION: No acute cardiopulmonary abnormality. Reading Location: [id number] CC: MYCOLOGIST-C Brenda Roy; Dr. Moises Mtz DO Cert Occupational Therapy Asst: Signed Normal [facility] Chloride assayOrdered By: Chris Mtz on 12-28-2024 Chloride [Moles/Vol] 106 mmol/L 98-108 [facility] Comprehensive Metabolic Prof ilon 12-28-2024 Albumin [Mass/Vol] 4.2 g/dL Normal 3.5-5.0 [facility] Comment on above: Performed By: #### M 100.2200 #### [facility] [address] [place], [address] Albumin/Globulin [Mass ratio] 1.0 {ratio} Normal 0.9-2.4 [facility] Comment on above: Performed By: #### M 100.2200 #### [facility] [address] [place], [address] ALK PHOS 97 U/L Normal 35-104 [facility] Comment on above: Performed By: #### M 100.2200 #### [facility] [address] [place], [address] ALT [Catalytic activity/Vol] 84 U/L High <=34 [facility] Comment on above: Performed By: #### M 100.2200 #### [facility] [address] [place], [address] AST [Catalytic activity/Vol] 95 U/L High <=31 [facility] Comment on above: Performed By: #### M 100.2200 #### [facility] [address] [place], [address] Bilirubin [Mass/Vol] 0.38 mg/dL Normal 0.00-1.30 [facility] Comment on above: Performed By: #### M 100.2200 #### [facility] [address] [place], [address] BUN/CRE 13.7 RATIO Normal 10-20 [facility] Comment on above: Performed By: #### M 100.2200 #### [facility] [address] [place], [address] Calcium [Mass/Vol] 8.8 mg/dL Normal 7.6-11.0 [facility] Comment on above: Performed By: #### M 100.2200 #### [facility] [address] [place], [address] Chloride [Moles/Vol] 106 mmol/L Normal 98-108 [facility] Comment on above: Performed By: #### M 100.2200 #### [facility] [address] [place], [address] CO2 [Moles/Vol] 19.8 mmol/L Low 21.0-32.0 [facility] Comment on above: Performed By: #### M 100.2200 #### [facility] [address] [place], [address] Creatinine [Mass/Vol] 0.68 mg/dL Low 0.70-1.20 [facility] Comment on above: Performed By: #### M 100.2200 #### [facility] [address] [place], [address] ECRCL 112.37 ml/min Normal 50-250 [facility] Comment on above: Performed By: #### M 100.2200 #### [facility] [address] [place], [address] GAP 11 Normal 5-15 [facility] Comment on above: Performed By: #### M 100.2200 #### [facility] [address] [place], [address] GFR/1.73 sq M.predicted among non-blacks MDRD (S/P/Bld) [Vol rate/Area] 110 mL/min/{1.73_m2} Normal >60 [facility] Comment on above: Result Comment: mL/m in/1.73m2 CKD-EPI Creatinine Equation (2020) Performed By: #### M 100.2200 #### [facility] [address] [place], [address] Globulin (S) [Mass/Vol] 4.2 g/dL Normal 2.2-4.2 [facility] Comment on above: Performed By: #### M 100.2200 #### [facility] [address] [place], [address] Glucose [Mass/Vol] 88 mg/dL Normal 70-99 [facility] Comment on above: Performed By: #### M 100.2200 #### [facility] [address] [place], [address] Potassium [Moles/Vol] 3.5 mmol/L Normal 3.3-5.1 [facility] Comment on above: Performed By: #### M 100.2200 #### [facility] [address] [place], [address] Sodium [Moles/Vol] 137 mmol/L Normal 133-145 [facility] Comment on above: Performed By: #### M 100.2200 #### [facility] [address] [place], [address] T PROT 8.4 g/dL Normal 5.9-8.4 [facility] Comment on above: Performed By: #### M 100.2200 #### [facility] [address] [place], [address] Urea nitrogen [Mass/Vol] 9 mg/dL Normal 4-19 [facility] Comment on above: Performed By: #### M 100.2200 #### [facility] [address] [place], [address] Emergency Department Summary on 12-28-2024 Emergency Department Summary [facility] Medical Records Department [address] [place] [address] Emergency Department Summary 12/28/24 MR#: [id number] Acct: [id number] Name: JENNIFER MANNING Rep #: [id number] : 1980 44 From: Moises Mtz DO PCP: KHADIJAH Waterman Status:DEP ER Location: ED ADDENDUM by Dr. Moises Mtz DO on 12/29/24 at 0125 EKG: Interpreted by me/EM physician: EKG showed normal sinus with heart rate of 74. No acute ischemic changes 12/29/24 0125 Cosigner Signature (if applicable): cc: KHADIJAH Gutierrez Podlogar * Signed HPI History of Present Illness Chief Complaint: Abd Pain Narrative Narrative: Chief complaint and HPI: Epigastric abdominal pain. 44-year-old female with past medical history of Crohn's disease controlled without medication, autoimmune disease with recurrent UTIs presents for evaluation of epigastric abdominal pain. Patient states for the past several days she has had early satiety when she eats. She states yesterday evening she developed sudden severe epigastric abdominal pain which she describes as sharp. Lasted about an hour but then became dull. States the pain is continue to be dull which is why she presents. History of an appendectomy. Denies any history of gastric ulcer. Denies daily alcohol or NSAID use. Denies any fever, chills, shortness of breath, chest pain, nausea, vomiting, dysuria. States at baseline she fluctuates between diarrhea and constipation although denies bloody bowel movements. States she gets scoped every 3 years. Thinks her last 1 was about a year ago which she states was unremarkable. Review of systems: See HPI Medications: As listed on the chart Allergies: As listed on the chart PFSH: Per chart Vital signs: As listed on the chart. Reviewed. Physical exam: Gen: A O x3, NAD Head: Normocephalic, atraumatic Eyes: No sclera icterus, conjunctiva clear ENT: Moist mucous membranes Neck: Trachea midline, No JVD CV: RRR, no murmurs, no peripheral edema Resp: Lungs CTA BL, no w/r/c GI: Abd soft, non-distended, mild tenderness to palpation in the epigastric region , no r/r/g, negative Kamara's : No CVA tenderness Musc: Full ROM, no deformity Skin: Warm, dry Neuro: Alert, oriented, grossly intact, sensation intact Psych: Cooperative, appropriate mood and affect [facility] Medical History Crohn's disease Home Medications ???Medication ???Instructions ???Recorded ???Last Taken ???Type citalopram 20 mg tablet 20 mg PO DAILY 09/09/20 12/27/24 H istory levothyroxine 75 mcg tablet 75 mcg PO DAILY 09/09/20 12/27/24 History d-mannose 500 mg chewable tablet 500 mg PO DAILY 12/28/24 12/27/24 History (AZO D-Mannose) mecobalamin (vitamin B12) 1,000 1,000 mcg PO DAILY 12/28/24 History mcg chewable tablet multivitamin (Daily Multi-Vitamin 1 tab PO DAILY 12/28/24 12/27/24 History tablet) ondansetron 4 mg disintegrating 4 mg PO Q8H PRN PRN Nausea #10 tab s 12/28/24 Unknown Rx tablet phentermine 37.5 mg capsule 37.5 mg PO DAILY 12/28/24 12/27/24 History topiramate 50 mg tablet 50 mg PO DAILY 12/28/24 12/27/24 H istory Allergy/AdvReac Type Severity Reaction Status Date / Time grass pollen Allergy Other Verified 12/28/24 16:02 morphine AdvReac Nausea Verified 12/28/24 16:02 Social History Smoking Status: Never smoker EXAM Physical Exam Const Vital Signs: 12/28/24 15:59 12/28/24 18:00 12/28/24 20:00 Temperature 97.7 F L Temperature Source Temporal Pulse Rate 98 79 75 Respiratory Rate 19 H 15 16 Blood Pressure 118/95 H 128/72 H 122/82 H Blood Pressure Mean 102 90 95 Pulse Ox 98 100 100 Oxygen Delivery Method Room Air Room Air Room Air 12/28/24 22:00 12/28/24 22:23 Temperature 97.7 F L Temperature Source Pulse Rate 70 72 Respiratory Rate 15 18 Blood Pressure 133/81 H 128/85 H Blood Pressure Mean 98 99 Pulse Ox 100 100 Oxygen Delivery Method MDM MDM MDM Narrative Medical decision making narrative: 44-year-old female with past medical history of Crohn's disease controlled without medication, autoimmune disease with recurrent UTIs presents for evaluation of epigastric abdominal pain. Associated symptom is several days of early satiety. Yesterday epigastric abdominal pain was sudden and severe. Now dull. Differential diagnosis includes but is not limited to gastritis, PUD, cholelithiasis with biliary colic, cholecystitis, choledocholithiasis, pancreatitis, colitis, UTI suspect less likely CS, . Abdominal pain workup ordered including CT abdomen pelvis. NS bolus ordered for contrast load. Patient offered pain medicine but d (more content not included)... Normal [facility] Eosinophil percentageOrdered By: Moises Mtz on 12-28-2024 Eosinophils/100 WBC (Bld) 7.1 % High 0-5 [facility] Erythrocyte distribution wid th ratioOrdered By: Moises Mtz on 12-28-2024 Erythrocyte distribution width (RBC) [Ratio] 13.1 % 11.6-14.6 [facility] Erythrocyte distribution wid th standard deviationOrdered By: Moises Workman on 12-28-2024 Erythrocyte distribution width (RBC) [Ratio] 42.9 fl 35.1-43.9 [facility] Gallbladderon 12-28-[address] [facility] Imaging Services [address], [place] [address] Gallbladder MR#: [id number] Acct: [id number] Name: JENNIFER MANNING Rep #: [id number] : 1980 F 44 From: Sreekanth Arauz MD PCP: KHADIJAH Waterman Status: REG ER Study: Gallbladder Date of Exam: 12/28/24 Exam# [id number] Ordering Dr: Moises Mtz DO PROCEDURE: GALLBLADDER 12/28/2024 REASON FOR EXAM: MILD INTRAHEPATIC AND EXTRAHEPATIC BILIARY DUCTAL COMPARISON: CT abdomen and pelvis 12/28/2024 FINDINGS: Liver: Mild diffuse increase in echogenicity relative to the right kidney. Gallbladder: The gallbladder measures 7.2 cm in length and contains shadowing echogenic stones resulting in a wall echo shadow sign. The gallbladder wall measures 0.4 cm in thickness. No significant pericholecystic fluid. Sonographic Kamara's sign is negative per technologist report. Common bile duct: Slightly dilated measuring 7 mm. Pancreas: Visualized portions are unremarkable. The distal body and tail are obscured by bowel gas. Right kidney: Unremarkable measuring 11.0 x 5.6 x 6.1 cm. US/Gallbladder IMPRESSION: 1. Cholelithiasis, with additional findings which are equivocal for acute cholecystitis. There is mild wall thickening without pericholecystic fluid, and negative sonographic Kamara's sign. Consider Surgical consultation if there is persistent clinical concern. 2. Mildly dilated common bile duct, which measures 7 mm. 3. Findings suggestive of mild hepatic steatosis. Reading Location: [id number] CC: KHADIJAH Gutierrez Podlogchris; Dr. Moises Mtz DO Cert Occupational Therapy Asst: Signed Normal [facility] Glomerular filtration rate ( GFR) estimation/1.73 sq m using serum, plasma, or whole bOrdered By: Moises Mtz on 12-28-2024 GFR/1.73 sq M.predicted among non-blacks MDRD (S/P/Bld) [Vol rate/Area] 110 mL/min/{1.73_m2} >60 [facility] Comment on above: mL/min/1.73m2 CKD-EP I Creatinine Equation (2020) Hematocrit Auto (Bld) [Volum e fraction]Ordered By: Moises Mtz on 12-28-2024 Hematocrit (Bld) [Volume fraction] 40.7 % 37-47 [facility] Hemoglobin measurementOrdere d By: Moises Mtz on 12-28-2024 Hemoglobin (Bld) [Mass/Vol] 13.6 g/dL 12.0-15.0 [facility] Immature granulocytes/100 WB C Auto (Bld)Ordered By: Moises Mtz on 12-28-2024 Immature granulocytes/100 WBC (Bld) 1.000 % High 0.0-0.9 [facility] Comment on above: IG% - Immature Granu locytes (promyelocytes, myelocytes and metamyelocytes) > 1% indicates that a LEFT SHIFT is Present. Ketones Test strip Ql (U)Ord ered By: oMises Mtz on 12-28-2024 Ketones Ql (U) 5 mg/dl High Negative [facility] L501.4021on 12-28-2024 Trop T High Sen < 6 Normal <=14 [facility] Comment on above: Performed By: #### L 501.4021 #### [facility] [address] [place], [place], [address] Laboratory - Chemistry and C hemistry - challengeOrdered By: Moises Mtz on 12-28-2024 AST [Catalytic activity/Vol] 95 U/L High <32 [facility] Lipaseon 12-28-2024 Lipase [Catalytic activity/Vol] 39 U/L Normal 13-75 [facility] Comment on above: Result Comment: Timmy carrion note: LIPASE revised reference range effective 22. New Lipase methodology. Expected to produce lower values than the previous assay method. NEW Reference Range: 13 - 75 U/L Performed By: #### M 100.2200 #### [facility] [address] [place], [address] Lipase measurementOrdered By : Moises Mtz on 12-28-2024 Lipase [Catalytic activity/Vol] 39 U/L 13-75 [facility] Comment on above: Please note:LIPASE r evised reference range effective 22. New Lipase methodology. Expected to produce lower values than the previous assay method. NEW Reference Range: 13 - 75 U/L MCV (mean corpuscular volume ) determinationOrdered By: Moises Mtz on 12-28-2024 MCV (RBC) [Entitic vol] 91.1 fL 81-99 [facility] Mean corpuscular hemoglobin (MCH) determinationOrdered By: Moises Mtz on 12-28-2024 MCH (RBC) [Entitic mass] 30.4 pg 27.0-32.0 [facility] Mean corpuscular hemoglobin concentration (MCHC) determinationOrdered By: Moises Mtz on 12-28-2024 MCHC (RBC) [Mass/Vol] 33.4 g/dL 32-36 [facility] Mean platelet volume determi nationOrdered By: Moises Mtz on 12-28-2024 Platelet mean volume (Bld) [Entitic vol] 9.0 fL 6.2-12.0 [facility] Microscopic analysis of urin e for red blood cells (RBC)Ordered By: Moises Mtz on 12-28-2024 Microscopic analysis of urine for red blood cells (RBC) 0-5 SEEN /hpf 0-5 [facility] Monocyte percentageOrdered B y: Moises Mtz on 12-28-2024 Monocytes/100 WBC (Bld) 8.4 % 0-10 [facility] Mucus LM Ql (Urine sed)Order ed By: Moises Mtz on 12-28-2024 Mucus Ql (Urine sed) 0 SEEN /hpf [facility] Neutrophil percentageOrdered By: Moises Mtz on 12-28-2024 Neutrophils/100 WBC (Bld) 55.7 % 47-70 [facility] Nitrite Test strip Ql (U)Ord ered By: Moises Mtz on 12-28-2024 Nitrite Ql (U) Negative Negative [facility] Nucleated red blood cell per centageOrdered By: Moises Mtz on 12-28-2024 Nucleated RBC/100 WBC (Bld) [Ratio] 0 % 0-5 [facility] Platelet countOrdered By: Chris Mtz on 12-28-2024 Platelets (Bld) [#/Vol] 366 10*3/uL 150-450 [facility] Potassium measurement (mass/ volume)Ordered By: Moises Mtz on 12-28-2024 Potassium (Unsp spec) [Mass/Vol] 3.5 mmol/L 3.3-5.1 [facility] Protein Test strip Ql (U)Ord ered By: Moises Mtz on 12-28-2024 Protein Ql (U) 30 mg/dl High Negative [facility] RBC Auto (Bld) [#/Vol]Ordere d By: Moises Mtz on 12-28-2024 RBC (Bld) [#/Vol] 4.47 10*6/uL 4.2-5.4 [facility] Serum creatinine measurement (mass/volume)Ordered By: Moises Mtz on 12-28-2024 Creatinine [Mass/Vol] 0.68 mg/dL Low 0.70-1.20 [facility] Serum globulin measurementOr dered By: Moises Mtz on 12-28-2024 Globulin (S) [Mass/Vol] 4.2 g/dL 2.2-4.2 [facility] Serum glucose measurement (m ass/volume)Ordered By: Moises Mtz on 12-28-2024 Glucose [Mass/Vol] 88 mg/dL 70-99 [facility] Serum or plasma alanine garvin otransferase (ALT) measurementOrdered By: Moises Mtz on 12-28-2024 ALT [Catalytic activity/Vol] 84 U/L High <35 [facility] Serum or plasma albumin alivia urement (mass/volume)Ordered By: Moises Workman on 12-28-2024 Albumin [Mass/Vol] 4.2 g/dL 3.5-5.0 [facility] Serum or plasma albumin/glob ulin mass ratioOrdered By: Moises Mtz on 12-28-2024 Albumin/Globulin [Mass ratio] 1.0 {ratio} 0.9-2.4 [facility] Serum or plasma alkaline isaías sphatase measurementOrdered By: Moises Mtz on 12-28-2024 ALP [Catalytic activity/Vol] 97 U/L 35-104 [facility] Serum or plasma calcium alivia urement (mass/volume)Ordered By: Moises Workman on 12-28-2024 Calcium [Mass/Vol] 8.8 mg/dL 7.6-11.0 [facility] Serum or plasma urea nitroge n measurement (mass/volume)Ordered By: Moises Mtz on 12-28-2024 Urea nitrogen [Mass/Vol] 9 mg/dL 4-19 [facility] Sodium levelOrdered By: Darek Mtz on 12-28-2024 Sodium [Moles/Vol] 137 mmol/L 133-145 [facility] Squamous epithelial cells de tection in urine sediment by light microscopyOrdered By: Moises Mtz on 12-28-2024 Epithelial cells.squamous LM Ql (Urine sed) 0-5 SEEN /hpf 5-10 [facility] Total proteinOrdered By: Ramon Mtz on 12-28-2024 Protein [Mass/Vol] 8.4 g/dL 5.9-8.4 [facility] Transvaginal Non-on 12-28-2024 Transvaginal Non- [facility] Services [address] [place], [place] [address] Transvaginal Non- MR#: [id number] Acct: [id number] Name: JENNIFER MANNING Rep #: [id number] : 1980 F 44 From: Rod Canales PCP: Brenda Roy, REMA-C Status: REG ER Study: Transvaginal Non- Date of Exam: Exam# [id number] Ordering Dr: Moises Mtz DO PROCEDURE: TRANSVAGINAL NON- 12/28/2024 REASON FOR EXAM: HYPODENSE LESION IN THE RIGHT POSTERIOR PELVIS TECHNIQUE: Transvaginal pelvic ultrasound COMPARISON: Same day CT. FINDINGS: Uterus is retroverted and measures 6.4 x 5.3 x 3.6 cm. No fibroids are noted. Endometrial stripe thickness is 3 mm and is hyperechoic. Nabothian cysts are noted. IUD is noted at the midline. Right ovary measures 5.9 x 4.4 x 3.2 cm and left ovary measures 3.6 x 2.1 x 1.5 cm. There is normal vascular flow within bilateral ovaries. 4.6 x 3.2 x 2.5 cm cyst within the right ovary. No free fluid is noted within the cul-de-sac. US/Transvaginal Non- IMPRESSION: 4.6 x 3.2 cm large cyst within the right ovary. No acute ovarian torsion. IUD noted within the uterus. Reading Location: [id number] CC: MYCOLOGIST-C Brenda Roy; Dr. Moises Mtz DO Cert Occupational Therapy Asst: Signed Normal [facility] Troponin T.cardiac [Mass/vol ume] in Serum or Plasma by High sensitivity methodOrdered By: Moises Mtz on 12-28-2024 Troponin T.cardiac High sensitivity method [Mass/Vol] < 6 ng/L <14 [facility] Urinalysis, Completeon 12-28 BACTERIA 1+ /hpf Normal None Seen [facility] Comment on above: Order Comment: CLEAN CATCH Performed By: #### L 400.0001 #### [facility] [address] [place], [address] EPI,SQUAMOUS 0-5 SEEN Normal 5-10 [facility] Comment on above: Order Comment: CLEAN CATCH Performed By: #### L 400.0001 #### [facility] [address] [place], [address] RBC 0-5 SEEN Normal 0-5 [facility] Comment on above: Order Comment: CLEAN CATCH Performed By: #### L 400.0001 #### [facility] [address] [place], [address] WBC 0-5 SEEN Normal 0-5 [facility] Comment on above: Order Comment: CLEAN CATCH Performed By: #### L [id number] #### [facility] [address] [place], [address] Mucus Ql (Urine sed) 0 SEEN Normal [facility] Comment on above: Order Comment: CLEAN CATCH Performed By: #### L [id number] #### [facility] [address] [place], [address] Urine clarityOrdered By: Ramon Mtz on 12-28-2024 Clarity (U) Sl. Cloudy Clear [facility] Urine color determinationOrd ered By: Moises Mtz on 12-28-2024 Color (U) Yellow Yellow [facility] Urine cultureOrdered By: Ramon Mtz on 12-28-2024 Bacteria identified Cx Nom (U) Mixed Gram Pos & Gram Neg Org Abnormal [facility] Urine glucose detectionOrder ed By: Moises Mtz on 12-28-2024 Glucose Ql (U) Normal mg/dl Normal [facility] Urine leukocyte esterase det ection by dipstickOrdered By: Moises Mtz on 12-28-2024 Leukocyte esterase Test strip Ql (U) 25 /ul High Negative [facility] Urine pHOrdered By: Moises Carpenter on 12-28-2024 pH (U) 7.0 [pH] 5.0 - 8.0 [facility] Urine sediment bacteria coun t by microscopy (number/high power field)Ordered By: Moises Mtz on 12-28-2024 Bacteria LM.HPF (Urine sed) [#/Area] 1 /[HPF] None Seen [facility] Urine specific gravity measu rementOrdered By: Moises Mtz on 12-28-2024 Specific gravity (U) [Rel density] 1.010 1.002-1.03 0 [facility] Urine urobilinogen measureme ntOrdered By: Moises Mtz on 12-28-2024 Urobilinogen Ql (U) 1 mg/dl High Normal [facility] White blood cell (WBC) count Ordered By: Moises Mtz on 12-28-2024 WBC (Bld) [#/Vol] 6.1 10*3/uL 4.4-11.0 [facility] White blood cell countOrdere d By: Moises Mtz on 12-28-2024 White blood cell count 0-5 SEEN /hpf 0-5 [facility] CNPNon 10-27-2024 CNPN Telephone (OBGYWM) -- JENNIFER MANNING ([id number]) 1980 F Date Time Provider Department 10/27/24 MARLENI ALMONTE OBGYWM During your visit today, we recorded the following information about you: Michael Wheeler MA 10/27/2024 8:56 AM Signed Received PA request for Zepbound. Submitted and received immediate response that it is not covered by patients plan. Patient notified. LAMONT Webb Deidre, MD 10/27/2024 1:12 PM Signed Please let patient know her Previous meds ordered, thank you Marleni Almonte MD 10/27/2024 1:12 PM Signed Addended by: MARLENI FREEMAN on: 10/27/2024 01:12 PM Modules accepted: Mirian Maguire RN 10/27/2024 1:23 PM Signed Left message to call office. JED Oakes Trisha, RN 10/28/2024 4:49 PM Signed Patient notified. Doris Michele RN Allergies As of Date: 10/27/2024 Noted Allergy Reaction MORPHINE 01/09/2016 8 - GI Upset 11 - Vomiting SEASONAL ALLERGIES 01/09/2016 3 - Cough 9 - Itching Comments: sneezing Date Reviewed: 10/15/2024 Reviewed by: Delma Castelan MA - Fully Assessed Reason for Visit: Insurance Authorization [[id number]] Visit Diagnoses:Other migraine without status migrainosus, not intractable [G43.809] Poor sleep [Z72.820] Class 1 obesity without serious comorbidity with body mass index (BMI) of 31.0 to 31.9 in adult, unspecified obesity type [E66.811, Z68.31] Order(s):topiramate (TOPAMAX) 50 mg tabletTake 1 tablet by mouth two times a day.Disp: 180 tabletRfl: 1 Phentermine HCl 37.5 mg capsuleTake 1 capsule by mouth daily before breakfast for 90 days.Disp: 90 capsuleRfl: 0 Prescriptions as of 10/28/2024 - topiramate (TOPAMAX) 50 mg tablet Take 1 tablet by mouth two times a day. - Phentermine HCl 37.5 mg capsule Take 1 capsule by mouth daily before breakfast for 90 days. - cetirizine HCl (ZYRTEC ORAL) Take by mouth. - nitrofurantoin monohydrate and macrocrystal (MACROBID) 100 mg capsule Take one tablet after intercourse - levothyroxine (SYNTHROID) 75 mcg tablet Take 1 tablet by mouth daily before breakfast. - citalopram (CELEXA) 20 mg tablet Take 1 tablet by mouth once daily. - multivitamin tablet Take 1 tablet by mouth once daily. - levonorgestrel (MIRENA) 21 mcg/24 hours (8 yrs) 52 mg IUD 1 Each by INTRAUTERINE route as directed. - cyanocobalamin (VITAMIN B-12) 1,000 mcg tab Take 1 tablet by mouth once daily. 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] 05/04/2016 Crohn's disease of colon without complication (*02/04/2017 Alopecia [L65.9] 02/04/2017 Scotoma involving central area [H53.419] 02/07/2017 GBS bacteriuria [R82.71] 04/16/2017 03/27/2024 Advanced maternal age in multigravida [O09.529] 04/18/2017 03/27/2024 with history of section, ant*04/18/2017 12/03/2017 History of delivery, currently *04/18/2017 12/03/2017 History of thyroid disorder [Z86.39] 04/18/2017 History of Crohn's disease [Z87.19] 04/18/2017 Retinal disorder [H35.9] 04/18/2017 Patient requested diagnostic testing [Z01.89] 04/18/2017 12/03/2017 Thyroid disease [E07.9] 05/22/2022 Polyarthropathy, 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 PHENTERMINE 37.5 MG CAPSULE 90 c* 0 10/27/2024 01/25/2025 Route: ORAL Sig: Take 1 capsule by mouth daily before breakfast for 90 days. Medications Discontinued During This Encounter Prescriptions - tirzepatide, weight loss (ZEPBOUND) 2.5 mg/0.5 mL pen injector (Discontinued) Inject 2.5 mg subcutaneously one time a week. - topiramate (TOPAMAX) 50 mg tablet (Discontinued) Take 1 tablet by mouth two times a day. - Phentermine HCl 37.5 mg capsule (Discontinued) Take 1 capsule by mouth daily before breakfast for 90 days. Encounter Status:Closed by MICHAEL WHEELER on 10/27/24 [facility] CNOVon 10-15-2024 CNOV Office Visit (OBGYWM ) -- KERRIJENNIFER ([id number]) 1980 F Date Time Provider Department 10/15/24 9:50 AM MARLENI ALMONTE OBFANTAWLawson During your visit today, we recorded the following information about you: Pulse Blood pressure Weight 70/minute 122/80 80.7 kg Marleni Almonte MD 10/15/2024 12:33 PM Signed Some documentation from previous visit of 05/18/2024 was copied and pasted, documentation has been reviewed and edited as necessary for today's visit. Patient Summary: Jennifer is a 44 year old Female who presents for follow-up evaluation of obesity/weight management to treat and prevent related co-morbidities. In our previous visits we have discussed lifestyle intervention including a nutrition recommendations and physical activity optimization. Her last office visit was 5 months ago. Assessment/plan from last visit: - reviewed tracking food - reviewed back to basics- initial weight mgmt- whole foods and eliminating processed foods- will try to eliminate dairy - high protein - antiinflammatory diet - discussed sleep hygiene and consult to sleep medicine and GO TO SLEEP program. Declines today- maybe next visit - increase topiramate to BID (start at 1/2 tab at night) Interval History PT specifies the following items as new or significant updates since the last appointment: - getting UTIs with [facility] regularly- would like more abx to use - getting out walking more - weight stable but would still like to get down to 165lbs. Feels more balanced with life- facial creams etc. - feels overall better but has some inflammation - sleeping better STARTING WEIGHT WITH first dose phentermine 209lbs(05/22/2022) went to 190lbs Then restarted 10/18 195lbs Date: Wt: 10/15/2024 178 lb 05/18/2024 179 lb 01/28/2024 172 lb 10/29/2023 175lb 08/13/2023 178lb 05/16/2023 177 lb (80.3 kg) 02/20/2023 184 lb (83.5 kg) Weight loss since last vist: 1 lb Total weight loss: 17 lbs from the restart date 10/18 Adjusted ideal body weight: 67.9 kg (149 lb 10.2 oz) Anti-obesity medications: Phentermine. Benefit:suppression appetite Adverse effects: none Anti-obesity medications: Topiramate. Benefit: decreased food noise? Adverse effects: none Weight promoting medications: Other celexa Previous Diet (initial appointment): Dietary changes: B-protein shake- powder, chobani nigerian drink (20g) L- yogurt and cottage cheese and berries, veggies, protein chips, turkey rolls w/ cheese, salad w/ meat D- hamburger w/o bun, vegetable (green beans,broccoli), sometimes GF pasta ( still tries to do meat first), soup S- light and fit popcorn- occasional or tea Fluids - water- 80-120oz, coffee Eating 3 meals a day, including breakfast Increasing water intake Controlling portions Identify hunger and satiety cues Increasing protein Reducing carbohydrates Current Barriers: poor sleep hygiene and inadequate sleep duration poor sleep hygiene and inadequate sleep duration Exercise: trying to walk but exercise is decreased due to kids SPORTS Stress: stable Sleep:increased- 6-7 hrs from 4-5 CrCl cannot be calculated (Patient's most recent lab result is older than the maximum 180 days allowed.). 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 levothyroxine (SYNTHROID) 75 mcg tablet Take 1 tablet by mouth daily before breakfast. 90 tablet 1 citalopram (CELEXA) 20 mg tablet Take 1 tablet by mouth once daily. 90 tablet 1 topiramate (TOPAMAX) 50 mg tablet Take 1 tablet by mouth two times a day. 180 tablet 1 multivitamin tablet Take 1 tablet by mouth once daily. levonorgestrel (MIRENA) 21 mcg/24 hours (8 yrs) 52 mg IUD 1 Each by INTRAUTERINE route as directed. 1 Each 0 cyanocobalamin (VITAMIN B-12) 1,000 mcg tab Take 1 tablet by mouth once daily. MEDICATION, NON-DATABASE Inject 2 Each subcutaneously every other week. Allergy shots (Patient not taking: Reported on 05/18/2024) fexofenadine (LINDSAY) 60 mg tablet Take 60 mg by mouth as needed (allergies). (Patient not taking: Reported on 10/15/2024) No current facility-administered medications for this visit. ROS denies CP, Dizziness, palpitations, no brain fog, no paraesthesia ROS/Fam Hx pertaining to AOMs: >Phentermine: No uncontrolled HTN, No CVD Hx or hx of seizure disorder. No MAOI inhibitor use. No drug abuse hx. Crcl > 15. >Topiramate/zonisamide: No seizure or kidney stone hx. hx of migraines, yes (more content not included)... Normal [facility] BACTERIAL VAGINOSIS NAATon 1 09-16-2023 Lactobacillus crispatus+gasseri+joe senii + Gardnerella vaginalis + Atopobium vaginae rRNA SMILEY+probe Ql (Vag fld) Not detected Normal Not detected [facility] Comment on above: Order Comment: Speci men Type: SWABOrdering Facility: [facility] Address: [address] [place] [address] Performed By: #### TANYA ANGELA ####[facility] LABCLIA [id number] [place] [address] [place] Bacteria Ur Culton 4 Bacteria identified Cx Nom (U) ORGANISM ID: 1 10,000 -<50,000 CFU/ml Escherichia coli ORGANISM ID: 2 <10,000 CFU/ml Normal urogenital cruz ORGANISM ID: 1 (ESCHERICHIA COLI) ANTIBIOTIC INTERPRETATION ADRIAN STATUS REFERENCE RANGE Ampicillin S 4 F Susceptible <=8 , Intermediate >8 , Resistant >16 Cefazolin S <=4 F Susceptible 0-16 , Intermediate <0 or >16 , Resistant >16 For uncomplicated urinary tract infections, cefazolin results can be used to predict susceptibility or resistance to cephalexin. Ceftriaxone S <=1 F Susceptible <=1 , Intermediate >1 , Resistant >=4 Cefepime S <=1 F Susceptible <=2 , Susceptible-Dose Dependent >2 , Resistant >=16 Ertapenem S <=0.5 F Susceptible <=0.5 , Intermediate >.5 , Resistant >1 Meropenem S <=0.25 F Susceptible <=1 , Intermediate >1 , Resistant >2 Ampicillin/Sulbact S <=2 F Susceptible <=8 , Intermediate >8 , Resistant >16 Piperacillin/Tazobac S <=4 F Susceptible <16 , Susceptible-Dose Dependent >=16 , Resistant >=32 Gentamicin S <=1 F Susceptible <=2 , Intermediate >2 , Resistant >=8 Tobramycin S <=1 F Susceptible <4 , Intermediate >=4 , Resistant >=8 Trimeth sulfameth S <=20 F Susceptible <=40 , Resistant >40 Ciprofloxacin S <=0.25 F Susceptible <0.5 , Intermediate >=.5 , Resistant >=1 Nitrofurantoin S 32 F Susceptible <=32 , Intermediate >32 , Resistant >64 Abnormal [facility] Comment on above: Performed By: #### 6 30-4 ####[facility] LABCLIA [id number] [place] [address] [place] RACHELLE/TRICHOMONAS NAATon 1 09-16-2023 C. glabrata RNA SMILEY+probe Ql (Vag fld) Not detected Normal Not detected [facility] Comment on above: Order Comment: Speci men Type: SWABOrdering Facility: [facility] Address: [address] [place] [address] Performed By: #### B KARI, CVTV ####[facility] LABCLIA [id number] [place] [address] [place] Rachelle sp DNA SMILEY+probe Ql (Vag fld) Not detected Normal Not detected [facility] Comment on above: Order Comment: Speci men Type: SWABOrdering Facility: [facility] Address: [address] [place] [address] Result Comment: The Rachelle species group target includes C. albicans, C. tropicalis, C. parapsilosis, and C. dubliniensis. Performed By: #### Edilberto PIERCE, CVTV ####[facility] LABCLIA [id number] [place] [address] [place] T. vaginalis DNA SMILEY+probe Ql (Unsp spec) Not detected Normal Not detected [facility] Comment on above: Order Comment: Speci men Type: SWABOrdering Facility: [facility] Address: [address] [place] [address] Performed By: #### Edilberto PIERCE, CVTV ####[facility] LABCLIA [id number] [place] [address] [place] CNOVon 07-16-2024 CNOV Office Visit ([facility] ) -- JENNIFER MANNING ([id number]) 1980 F Date Time Provider Department 07/16/24 6:00 PM KVNG ROLDAN [facility] During your visit today, we recorded the following information about you: Temperature Pulse Respiration Blood pressure 98.2 degrees 89/minute 18/minute 100/80 Weight 82.3 kg Kvng Roldan PA 07/16/2024 6:29 PM Signed This note was created using LOCK8. Subjective Jennifer Manning is a 43 year old female. HPI 43-year-old male presents for urinary frequency, urgency, dysuria x 3 days. Patient states symptoms started after having intercourse. She states that she has had burning with urination, urgency and frequency. She denies any blood in the urine. No abdominal pain or back pain. No fevers or vomiting. She states she had a little bit of a vaginal odor for the past few days as well. She has a small amount of vaginal discharge. She does have a Mirena for hormone control. Denies any pelvic pain. She states that she had the symptoms about a month ago and was treated for UTI with Keflex, but states urine culture came back negative. Her symptoms did resolve with the Keflex however. Patient did take an cslc-pcb-zpqmscu medication, unsure what is called, but it was not Azo. 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 topiramate (TOPAMAX) 50 mg tablet Take 1 tablet by mouth two times a day. Phentermine HCl 37.5 mg capsule Take 1 capsule by mouth daily before breakfast for 90 days. multivitamin tablet Take 1 tablet by mouth once daily. levonorgestrel (MIRENA) 21 mcg/24 hours (8 yrs) 52 mg IUD 1 Each by INTRAUTERINE route as directed. levothyroxine (SYNTHROID) 75 mcg tablet Take 1 tablet by mouth daily before breakfast. fexofenadine (LINDSAY) 60 mg tablet Take 60 mg by mouth as needed (allergies). cyanocobalamin (VITAMIN B-12) 1,000 mcg tab Take 1 tablet by mouth once daily. nitrofurantoin monohydrate and macrocrystal (MACROBID) 100 mg capsule Take 1 capsule by mouth two times a day for 7 days. MEDICATION, NON-DATABASE Inject 2 Each subcutaneously every other week. Allergy shots (Patient not taking: Reported on 05/18/2024) FAMILY HISTORY Problem Relation Age of Onset Rheumatologic disease Mother Arthritis Mother other (Raynauds) Mother other (mitral valve) Mother Breast Cancer Mother Allergies Sister other (mitral valave) Sister Diabetes Maternal Grandmother Cancer Maternal Grandfather Heart Maternal Grandfather Diabetes Maternal Grandfather Heart Paternal Grandfather Cancer Maternal Aunt breast No Ocular Disease Other Social History Tobacco Use Smoking status: Never Smokeless tobacco: Never Vaping Use Vaping status: Never Used Substance Use Topics Alcohol use: Yes Comment: 2-3 glasses of wine per week, not while Drug use: No Review of Systems Constitutional: Negative for chills and fever. HENT: Negative for congestion, ear pain and sore throat. Respiratory: Negative for cough and shortness of breath. Cardiovascular: Negative for chest pain. Gastrointestinal: Negative for abdominal pain, diarrhea and vomiting. Genitourinary: Positive for dysuria, frequency and urgency. Objective BP 100/80 Pulse 89 Temp 36.8 ?C (98.2 ?F) Resp 18 Wt 82.3 kg (181 lb 7 oz) LMP 04/25/2021 SpO2 100% BMI 29.28 kg/m? Physical Exam Vitals and nursing note reviewed. Constitutional: General: She is not in acute distress. Appearance: Normal appearance. She is not toxic-appearing. HENT: Nose: Nose normal. Mouth/Throat: Mouth: Mucous membranes are moist. Eyes: Conjunctiva/sclera: Conjunctivae normal. Cardiovascular: Rate and Rhythm: Normal rate and regular rhythm. Pulmonary: Effort: Pulmonary effort is normal. Breath sounds: Normal breath sounds. Abdominal: General: Abdomen is flat. Palpations: Abdomen is soft. Tenderness: There is no abdominal tenderness. There is no guarding or rebound. Genitourinary: Comments: Deferred, patient will self swab Skin: General: Skin is warm and dry. Neurological: Mental Status: She is alert (more content not included)... Normal [facility] UA DIP, URINE (POC)on 2023 BILIRUBIN UA (POCT) Negative Negative [facility] CLARITY UA (POCT) Clear [facility] COLOR UA (POCT) Yellow [facility] GLUCOSE UA (POCT) Negative Negative mg/dL [facility] Hemoglobin Ql (U) Trace-intact Abnormal Negative [facility] Interpretation and review of laboratory results Abnormal [facility] KETONE UA (POCT) Negative Negative mg/dL [facility] LEUKOCYTES UA (POCT) Small Abnormal Negative [facility] NITRITE UA (POCT) Negative Negative [facility] PH UA (POCT) 6.0 4.5 - 8.0 [facility] Protein Ql (U) Negative Negative mg/dL [facility] SPECIFIC GRAVITY UA (POCT) 1.020 1.005 - 1.030 [facility] UROBILINOGEN UA (POCT) 0.2 Normal E.U./dL [facility] Location:[address], [place], [address] [facility] CNOVon 05-18-2024 CNOV Office Visit (OBGYWM ) -- JENNIFER MANNING ([id number]) 1980 F Date Time Provider Department 05/18/24 2:00 PM MARLENI ALMONTE OBGYWM During your visit today, we recorded the following information about you: Pulse Blood pressure Weight 86/minute 118/68 81.2 kg Marleni Almonte MD 05/18/2024 2:37 PM Signed Some documentation from previous visit of 01/28/2024 was copied and pasted, documentation has been reviewed and edited as necessary for today's visit. Patient Summary: Jennifer is a 43 year old Female who presents for follow-up evaluation of obesity/weight management to treat and prevent related co-morbidities. In our previous visits we have discussed lifestyle intervention including a nutrition recommendations and physical activity optimization. Her last office visit was 3.5 months ago. Assessment/plan from last visit: - repeat labs today- ordered patient advised to do fasting - advised on tracking food daily - continue whole foods, low carb, high protein - continue phentermine and topiramate - >5% TBW loss in initial 3 months of phentermine use qualifying for long-term off label treatment of obesity - discussed adding in resistance training and importance of this and impact it will have on metabolism. Interval History PT specifies the following items as new or significant updates since the last appointment: -feeling bloating and gassy - changed to core power 42g drinks- wonders If those are impacting her gut - gut and mind keep her up at night - daughter has issues with dairy ?? Maybe she does too - saw endocrinology for low insulin- labs all look good - exhausted during the day to exercise, stress Is high too - no SE with medications. STARTING WEIGHT WITH first dose phentermine 209lbs(05/22/2022) went to 190lbs Then restarted 10/18 195lbs Date: Wt: 05/18/2024 179 lb 01/28/2024 172 lb 10/29/2023 175lb 08/13/2023 178lb 05/16/2023 177 lb (80.3 kg) 02/20/2023 184 lb (83.5 kg) Weight loss since last vist: +7lb Anti-obesity medications: Phentermine. Benefit:suppression appetite Adverse effects: none Anti-obesity medications: Topiramate. Benefit: decreased food noise? Adverse effects: none Weight promoting medications: Other celexa Previous Diet (initial appointment): Dietary changes: B-protein shake or Quest Bar or yogurt and cottage cheese L- yogurt and cottage and berries, 2 eggs, veggies, cheese or protein D- Tries not to eat late- PROTEIN first veggies and GF pasta (measures) if she gets to it S- light and fit popcorn, Fluids - Eating 3 meals a day, including breakfast Increasing water intake Controlling portions Identify hunger and satiety cues Increasing protein Reducing carbohydrates Current Barriers: poor sleep hygiene and inadequate sleep duration poor sleep hygiene and inadequate sleep duration Exercise: trying to walk but exercise is decreased due to kids SPORTS Stress: stable Sleep: not great- goes to bed late- 4-5 hrs maybe Estimated Creatinine Clearance: 107.2 mL/min (based on SCr of 0.72 mg/dL). 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 multivitamin tablet Take 1 tablet by mouth once daily. topiramate (TOPAMAX) 50 mg tablet Take 1 tablet by mouth once daily. 90 tablet 1 levonorgestrel (MIRENA) 21 mcg/24 hours (8 yrs) 52 mg IUD 1 Each by INTRAUTERINE route as directed. 1 Each 0 citalopram (CELEXA) 20 mg tablet Take 1 tablet by mouth once daily. 90 tablet 1 levothyroxine (SYNTHROID) 75 mcg tablet Take 1 tablet by mouth daily before breakfast. 90 tablet 1 fexofenadine (LINDSAY) 60 mg tablet Take 60 mg by mouth as needed (allergies). cyanocobalamin (VITAMIN B-12) 1,000 mcg tab Take 1 tablet by mouth once daily. phenazopyridine (PYRIDIUM) 200 mg tablet Take 1 tablet by mouth three times a day as needed. (Patient not taking: Reported on 05/18/2024) 9 tablet 0 MEDICATION, NON-DATABASE Inject 2 Each subcutaneously every other week. Allergy shots (Patient not taking: Reported on 05/18/2024) No current facility-administered medications for this visit. ROS denies CP, Dizziness, palpitations, no brain fog, no paraesthesia ROS/Fam Hx pertaining to AOMs: >Phentermine: No uncontrolled HTN, No CVD Hx or hx of seizure disorder. No MAOI inhibitor use. No drug abuse hx. Crcl > 15. >Topiramate/zonisamide: No seizure or kidney stone hx. hx of migraines, yes hx of poor sleep. yes Chi (more content not included)... Normal [facility] 03-27-2024 CNPN Telephone (OBGYWM) -- KERRIJENNIFER Taylor ([id number]) 1980 F Date Time Provider Department 03/27/24 MARLENI ALMONTE During your visit today, we recorded the following information about you: Mirian Olguin RN 03/27/2024 9:33 AM Signed ----- Message from Marleni Freeman MD sent at 03/27/2024 9:21 AM EDT ----- Please notify patient- Based on urinalysis it looks like she has UTI- I will treat going into weekend- we may need to change ABX when culture comes back. Push fluids. Mirian Olguin RN 03/27/2024 9:34 AM Signed Left message to call office. JED Oakes Lindsey, RN 03/27/2024 11:21 AM Signed Patient notified and voiced understanding. Mirian Olguin RN Allergies As of Date: 03/27/2024 Noted Allergy Reaction MORPHINE 01/09/2016 8 - GI Upset 11 - Vomiting SEASONAL ALLERGIES 01/09/2016 3 - Cough 9 - Itching Comments: sneezing Date Reviewed: 03/09/2024 Reviewed by: Emily Chong RN - Fully Assessed Reason for Visit: Results [95] Prescriptions as of 03/27/2024 - sulfamethoxazole-trimethop rim (BACTRIM DS) 800-160 mg per tablet Take 1 tablet by mouth two times a day for 3 days. FOR 3 DAYS. - phenazopyridine (PYRIDIUM) 200 mg tablet Take 1 tablet by mouth three times a day as needed. - Phentermine HCl (ADIPEX-P) 37.5 mg capsule Take 1 capsule by mouth daily before breakfast for 60 days. - multivitamin tablet Take 1 tablet by mouth once daily. - MEDICATION, NON-DATABASE Inject 2 Each subcutaneously every other week. Allergy shots - topiramate (TOPAMAX) 50 mg tablet Take 1 tablet by mouth once daily. - levonorgestrel (MIRENA) 21 mcg/24 hours (8 yrs) 52 mg IUD 1 Each by INTRAUTERINE route as directed. - citalopram (CELEXA) 20 mg tablet Take 1 tablet by mouth once daily. - levothyroxine (SYNTHROID) 75 mcg tablet Take 1 tablet by mouth daily before breakfast. - fexofenadine (LINDSAY) 60 mg tablet Take 60 mg by mouth as needed (allergies). - cyanocobalamin (VITAMIN B-12) 1,000 mcg tab Take 1 tablet by mouth once daily. 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] 05/04/2016 Crohn's disease of colon without complication (*02/04/2017 Alopecia [L65.9] 02/04/2017 Scotoma involving central area [H53.419] 02/07/2017 GBS bacteriuria [R82.71] 04/16/2017 03/27/2024 Advanced maternal age in multigravida [O09.529] 04/18/2017 03/27/2024 with history of section, ant*04/18/2017 12/03/2017 History of delivery, currently *04/18/2017 12/03/2017 History of thyroid disorder [Z86.39] 04/18/2017 History of Crohn's disease [Z87.19] 04/18/2017 Retinal disorder [H35.9] 04/18/2017 Patient requested diagnostic testing [Z01.89] 04/18/2017 12/03/2017 Thyroid disease [E07.9] 05/22/2022 Polyarthropathy, 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 Ceftriaxone S <=1 F Susceptible <=1 , Intermediate >1 , Resistant >=4 Cefepime S <=1 F Susceptible <=2 , Susceptible-Dose Dependent >2 , Resistant >=16 Ertapenem S <=0.5 F Susceptible <=0.5 , Intermediate >.5 , Resistant >1 Meropenem S <=0.25 F Susceptible <=1 , Intermediate >1 , Resistant >2 Ampicillin/Sulbact S <=2 F Susceptible <=8 , Intermediate >8 , Resistant >16 Piperacillin/Tazobac S <=4 F Susceptible <16 , Susceptible-Dose Dependent >=16 , Resistant >=32 Gentamicin S <=1 F Susceptible <=2 , Intermediate >2 , Resistant >=8 Tobramycin S <=1 F Susceptible <4 , Intermediate >=4 , Resistant >=8 Trimeth sulfameth S <=20 F Susceptible <=40 , Resistant >40 Ciprofloxacin S <=0.25 F Susceptible <0.5 , Intermediate >=.5 , Resistant >=1 Nitrofurantoin S <=16 F Susceptible <=32 , Intermediate >32 , Resistant >64 Abnormal [facility] Comment on above: Performed By: #### 6 30-4 ####[facility] LABCLIA [id number] [place] [address] [place] Urinalysis complete panel (U )on 03-26-2024 BACTERIA UL 2236.6 uL High Negative [facility] Comment on above: Order Comment: Speci men Type: URINE SPECIMENOrdering Facility: [facility] Address: [address] [place] [address] Performed By: #### 2 4356-8 ####[facility] LABCLIA [id number] [place] [address] [place] Bilirubin Ql (U) Negative Normal Negative [facility] Comment on above: Order Comment: Speci men Type: URINE SPECIMENOrdering Facility: [facility] Address: [address] [place] [address] Performed By: #### 2 4356-8 ####[facility] LABCLIA [id number] [place] [address] [place] CALCIUM OXALATE CRYSTALS (UA) Few Abnormal None Seen [facility] Comment on above: Order Comment: Speci men Type: URINE SPECIMENOrdering Facility: [facility] Address: [address] [place] [address] Performed By: #### 2 4356-8 ####[facility] LABCLIA [id number] [place] [address] [place] Clarity (Unsp spec) Cloudy Abnormal Clear [facility] Comment on above: Order Comment: Speci men Type: URINE SPECIMENOrdering Facility: [facility] Address: [address] [place] [address] Performed By: #### 2 4356-8 ####[facility] LABCLIA [id number] [place] [address] [place] Color (U) Yellow Normal Yellow [facility] Comment on above: Order Comment: Speci men Type: URINE SPECIMENOrdering Facility: [facility] Address: [address] [place] [address] Performed By: #### 2 4356-8 ####[facility] LABCLIA [id number] [place] [address] [place] Epithelial cells LM.HPF (Urine sed) [#/Area] None Seen Normal [facility] Comment on above: Order Comment: Speci men Type: URINE SPECIMENOrdering Facility: [facility] Address: [address] [place] [address] Performed By: #### 2 4356-8 ####[facility] LABIA [id number] [address] [place] Glucose Test strip (U) [Mass/Vol] Negative Normal Negative [facility] Comment on above: Order Comment: Speci men Type: URINE SPECIMENOrdering Facility: [facility] Address: [address] [place] [address] Performed By: #### 2 4356-8 ####[facility] LABIA [id number] [place] [address] [place] Hemoglobin Ql (U) 3+ Abnormal Negative [facility] Comment on above: Order Comment: Speci men Type: URINE SPECIMENOrdering Facility: [facility] Address: [address] [place] [address] Performed By: #### 2 4356-8 ####[facility] LABIA [id number] [place] [address] [place] Hyaline casts (Urine sed) [#/Area] 1-3 /LPF Abnormal 0 /LPF [facility] Comment on above: Order Comment: Speci men Type: URINE SPECIMENOrdering Facility: [facility] Address: [address] [place] [address] Performed By: #### 2 4356-8 ####[facility] LABCLIA [id number] [place] [address] [place] Ketones Ql (U) Trace Abnormal Negative [facility] Comment on above: Order Comment: Speci men Type: URINE SPECIMENOrdering Facility: [facility] Address: [address] [place] [address] Performed By: #### 2 4356-8 ####[facility] LABCLIA [id number] [place] [address] [place] Leukocyte esterase Test strip Ql (U) 2+ Abnormal Negative [facility] Comment on above: Order Comment: Speci men Type: URINE SPECIMENOrdering Facility: [facility] Address: [address] [place] [address] Performed By: #### 2 4356-8 ####[facility] LABCLIA [id number] [place] [address] [place] Nitrite Ql (U) Negative Normal Negative [facility] Comment on above: Order Comment: Speci men Type: URINE SPECIMENOrdering Facility: [facility] Address: [address] [place] [address] Performed By: #### 2 4356-8 ####[facility] LABCLIA [id number] [place] [address] [place] pH (U) 6.5 [pH] Normal <8.5 [facility] Comment on above: Order Comment: Speci men Type: URINE SPECIMENOrdering Facility: [facility] Address: [address] [place] [address] Performed By: #### 2 4356-8 ####[facility] LABCLIA [id number] [place] [address] [place] Protein (U) [Mass/Vol] Negative Normal Negative [facility] Comment on above: Order Comment: Speci men Type: URINE SPECIMENOrdering Facility: [facility] Address: [address] [place] [address] Performed By: #### 2 4356-8 ####[facility] LABIA [id number] [place] [address] [place] RBC LM.HPF (Urine sed) [#/Area] 6-10 /HPF Abnormal 0-2 /HPF [facility] Comment on above: Order Comment: Speci men Type: URINE SPECIMENOrdering Facility: [facility] Address: [address] [place] [address] Performed By: #### 2 4356-8 ####[facility] [id number] [place] [address] [place] Specific gravity (U) [Rel density] 1.023 Normal 1.005-1.03 0 [facility] Comment on above: Order Comment: Speci men Type: URINE SPECIMENOrdering Facility: [facility] Address: [address] [place] [address] Performed By: #### 2 4356-8 ####[facility] [id number] [place] [address] [place] Urobilinogen Ql (U) 0.2 EU/dL Normal 0.2-1.0 EU/dL [facility] Comment on above: Order Comment: Speci men Type: URINE SPECIMENOrdering Facility: [facility] Address: [address] [place] [address] Performed By: #### 2 4356-8 ####[facility] [id number] [place] [address] [place] WBC LM.HPF (Urine sed) [#/Area] /[HPF] Abnormal 0-5 /HPF [facility] Comment on above: Order Comment: Speci men Type: URINE SPECIMENOrdering Facility: [facility] Address: [address] [place], [place] [address] Performed By: #### 2 4356-8 ####[facility] LABCLIA [id number] [place] [address] [place] ACTH Plas-mCncon 03-14-2024 Corticotropin (P) [Mass/Vol] 15.0 pg/mL Normal 7.2-63.3 [facility] Comment on above: Order Comment: Speci men Type: BLOOD SPECIMENOrdering Facility: [facility] Address: [address] [place] [address] Result Comment: ACTH Reference Range: 7-10 am: 7.2 - 63.3 pg/mL Performed By: #### 2 141-0 ####[facility] LABCLIA [id number] [place] [address] [place] Cortis SerPl-mCncon 03-14-20 Cortisol [Mass/Vol] 11.6 ug/dL Normal 4.8-19.5 [facility] Comment on above: Order Comment: Speci men Type: BLOOD SPECIMENOrdering Facility: [facility] Address: [address] [place] [address] Result Comment: Prov ided reference range is from 6-10 AM sample collection time. Cortisol Reference Range: 6-10 AM = 4.8-19.5 ug/dL, 4-8 PM = 2.5-11.9 ug/dL Performed By: #### 2 143-6 ####[facility] LABCLIA [id number] [place] [address] [place] Glucose p fast SerPl-mCncon 03-14-2024 Glucose post fast [Mass/Vol] 92 mg/dL Normal 74-99 [facility] Comment on above: Order Comment: Speci men Type: BLOOD SPECIMENOrdering Facility: [facility] Address: [address] [place] [address] Result Comment: [place] Diabetes Association guidelines state that a diabetes mellitus diagnosis is preliminarily made when the fasting plasma glucose meets or exceeds 126 mg/dL. In the absence of unequivocal hyperglycemia, results should be confirmed with repeat testing. Patients are at increased risk for diabetes mellitus (prediabetes) when the fasting glucose is 100 to 125 mg/dL. Performed By: #### 1 558-6 ####[facility] LABCLIA [id number] [place] [address] [place] INSULIN ANTIBODY BLDon 03-14 Insulin Ab Qn (S) <0.4 Normal <0.4 [facility] Comment on above: Order Comment: Jovi haynes Type: BLOOD SPECIMENOrdering Facility: [facility] Address: [address] [place] [address] Result Comment: Anti -insulin antibody test is used as an aid in diagnosis and prognosis of autoimmune diabetes mellitus in combination with other tests such as anti-GAD65 and anti-IA-2 antibody. A single negative result cannot rule out autoimmune diabetes mellitus. The test is not reliable in patients who had previously received exogenous insulin. Clinical correlation is required. Performed By: #### F INS, INSLAB ####[facility] LABCLIA [id number] [place] [address] [place] INSULIN ANTIBODY, QUALITATIVE Negative Normal Negative [facility] Comment on above: Order Comment: Jovi haynes Type: BLOOD SPECIMENOrdering Facility: [facility] Address: [address] [place] [address] Performed By: #### F INS, INSLAB ####[facility] LABIA [id number] [place] [address] [place] INSULIN, FREEon 03-14-2024 Insulin Free Qn 3.4 mU/L Normal 3.0-25.0 [facility] Comment on above: Order Comment: Jovi haynes Type: BLOOD SPECIMENOrdering Facility: [facility] Address: [address] [place] [address] Performed By: #### F INS, INSLAB ####[facility] LABCLIA [id number] [place] [address] [place] Insulin SerPl-aCncon 024 Insulin Qn 3.9 u[IU]/mL Normal 3.0-25.0 [facility] Comment on above: Order Comment: Speci men Type: BLOOD SPECIMENOrdering Facility: [facility] Address: [address] [place] [address] Performed By: #### 2 0448-7 ####[facility] LABCLIA [id number] [id number] CNOVon 03-09-2024 CNOV Office Visit (ENWSTR ) -- JENNIFER MANNING ([id number]) 1980 F Date Time Provider Department 03/09/24 8:40 AM AUGUSTA ANDERSON ENWSTR During your visit today, we recorded the following information about you: Pulse Respiration Blood pressure Weight 72/minute 18/minute 126/80 81.6 kg Height Last Period 1.676 m 04/25/21 Augusta Anderson MD 03/09/2024 6:13 PM Signed [facility] Initial Clinic Visit Note Consulted by: Marleni Freeman MD (OBGYN) Chief Complaint: Low insulin levels HPI: This is a 43 year old female who presents with low insulin levels She has a hx of Crohn's disease at the age of 25 years and reports she usually will be able to tolerate abdominal pains. And then she was also diagnosed with alopecia areata. She is not taking any medications for Cronh's and gluten free diet is helping. She was seeing dermatology and was receiving steroid shots, which she has not had for several years now. 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 Freeman for adrenal insufficiency and low insulin levels Any symptoms: She reports she always has high energy, lately feels slightly tired than usual No lightheadedness, dizziness No N/V, diarrhea, and rather than constipation lately No skin pigmentation Supplements over the counter- MVT, B12, demonos due to bladder infections PAST MEDICAL HISTORY: 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 No date: Thyroid disease PAST SURGICAL HISTORY: PAST SURGICAL HISTORY No date: ABDOMINAL SURGERY HX No date: APPENDECTOMY HX 10/25/2017: DELIVERY ONLY Comment: tubal ligation 07/28/2019: COLONOSCOPY SCREENING 11/08/2022: COLONOSCOPY SCREENING 09/09/2020: LAP SURG APPENDECTOMY No date: PAST SURGICAL HISTORY OF Comment: 2 c sects 10/25/2017: PCHG TUBAL W/ ; Bilateral FAMILY HISTORY: FAMILY HISTORY Problem Relation Age of Onset Rheumatologic disease Mother Arthritis Mother other (Raynauds) Mother other (mitral valve) Mother Breast Cancer Mother Allergies Sister other (mitral valave) Sister Diabetes Maternal Grandmother Cancer Maternal Grandfather Heart Maternal Grandfather Diabetes Maternal Grandfather Heart Paternal Grandfather Cancer Maternal Aunt breast No Ocular Disease Other SOCIAL HISTORY: Social History Tobacco Use Smoking status: Never Smokeless tobacco: Never Vaping Use Vaping Use: Never used Substance Use Topics Alcohol use: Yes Comment: 2-3 glasses of wine per week, not while Drug use: No MEDICATIONS: Current Outpatient Medications Medication Sig multivitamin tablet Take 1 tablet by mouth once daily. MEDICATION, NON-DATABASE Inject 2 Each subcutaneously every other week. Allergy shots topiramate (TOPAMAX) 50 mg tablet Take 1 tablet by mouth once daily. levonorgestrel (MIRENA) 21 mcg/24 hours (8 yrs) 52 mg IUD 1 Each by INTRAUTERINE route as directed. citalopram (CELEXA) 20 mg tablet Take 1 tablet by mouth once daily. levothyroxine (SYNTHROID) 75 mcg tablet Take 1 tablet by mouth daily before breakfast. fexofenadine (LINDSAY) 60 mg tablet Take 60 mg by mouth as needed (allergies). cyanocobalamin (VITAMIN B-12) 1,000 mcg tab Take 1 tablet by mouth once daily. No current facility-administered medications for this visit. ALLERGIES: ALLERGIES Allergen Reactions Morphine GI Upset, Vomiting Seasonal Allergies Cough, Itching sneezing REVIEW OF SYSTEMS: GENERAL: No weight loss, malaise or fevers HEENT: Negative for frequent or significant headaches, No changes in hearing or vision, no nose bleeds or other nasal problems NECK: Negative for lumps, goiter, pain and significant neck swelling RESPIRATORY: Negative for cough, hemoptysis, wheezing, COPD, dyspnea or shortness of breath CARDIOVASCULAR: Negative for chest pain, leg swelling, hypertension, CHF or palpitations GI: No nausea, vomiting, or diarrhea MUSCULOSKELETAL: Negative for joint pain or swelling, back pain or muscle pain SKIN: Negative for lesions, rash, and itching ENDOCRINE: Negative for cold or heat intolerance, polyuria, polydipsia and goiter NEURO: No history of headaches, syncope, paralysis, seizures or tremors All other reviewed and negative other than HPI. PHYSICAL EXAM: BP 126/80 (BP Site: Right Arm, BP Position: Sitting, BP Cuff Size: Regular Adul (more content not included)... Normal [facility] CNOVon 03-03-2024 CNOV Office Visit (OBGYWM ) -- JENNIFER MANNING ([id number]) 1980 F Date Time Provider Department 03/03/24 8:20 AM AMRLENI ALMONTE OBGYWM During your visit today, we recorded the following information about you: Blood pressure Weight Height 102/62 80.8 kg 1.664 m Marleni Almonte MD 03/03/2024 8:49 AM Signed Code Official offered: Patient declines. Jennifer is a 43 year old who presents for an annual gynecologic exam without complaints. Menses: no menses - Mirena IUD. Contraception: IUD HPV vaccine: No Last Pap: 07/20/2021 normal HPV: 07/19/2021 negative History of abnormal pap: No Last mammogram: 2023normal Sexually active: Yes History of STDS: None Patient concerns for STD exposure: No. Hot flashes: No Night sweats: No Vaginal dryness: No Exercise: routine Diet: balanced OB History T1 L3 SAB1 IAB0 Ectopic0 Multiple0 Live Births3 Comment: G1- low fluid, placental infarcts, went into labor, had emergency c/s nonreassuring FHTs, 2 vessel cords G2 SAB, no DANDC, early G3- no problems w/ this , scheduled c/s D[employer] System History LMP: 04/25/2021, IUD Age at Menarche: Age at First : Age at Menopause: Dumper Bul[employer] System History Comments: Sexual Activity: Yes; Male Contraception: Tubal Ligation, I.U.D. 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 No date: Thyroid diseasePAST SURGICAL HISTORY No date: ABDOMINAL SURGERY HX No date: APPENDECTOMY HX 10/25/2017: DELIVERY ONLY Comment: tubal ligation 07/28/2019: COLONOSCOPY SCREENING 11/08/2022: COLONOSCOPY SCREENING 09/09/2020: LAP SURG APPENDECTOMY No date: PAST SURGICAL HISTORY OF Comment: 2 c sects 10/25/2017: PCHG TUBAL W/ ; Bilateral FAMILY HISTORY Problem Relation Age of Onset Rheumatologic disease Mother Arthritis Mother other (Raynauds) Mother other (mitral valve) Mother Breast Cancer Mother Allergies Sister other (mitral valave) Sister Diabetes Maternal Grandmother Cancer Maternal Grandfather Heart Maternal Grandfather Diabetes Maternal Grandfather Heart Paternal Grandfather Cancer Maternal Aunt breast No Ocular Disease Other SOCIAL HISTORY Social History Tobacco Use Smoking status: Never Smokeless tobacco: Never Vaping Use Vaping Use: Never used Substance Use Topics Alcohol use: Yes Comment: 2-3 glasses of wine per week, not while Drug use: No REVIEW OF SYSTEMS Abdomen: No abdominal pain, nausea, vomiting, diarrhea, or constipation. No bloating, early satiety, indigestion, or increased flatulence. Bladder: No dysuria, gross hematuria, urinary frequency, urinary urgency, or incontinence. Breast: No breast lumps, nipple d/c, overlying skin changes, redness or skin retraction. Allergies and current medication updated:Yes EXAM: BP 102/62 Ht 5' 5.5 (1.66m) Wt 178 lb 3.2 oz (80.8kg) LMP 04/25/2021 BMI 29.19 kg/(m2). GENERAL: pleasant, female in no apparent distress HEENT: Normocephalic, atraumatic, mucus membranes moist, and no lesions NECK: Supple, full range of motion, no adenopathy, and thyroid normal DERMATOLOGY: Normal, without lesions, non-icteric, and non-hirsute BREAST: soft, non-tender, symmetric, no dominant mass, normal nipple-areolar complex, no lymphadenopathy, and no nipple discharge ABDOMEN: soft, non-tender, and no masses PELVIC: external genitalia normal, normal Bartholin's glands, urethra, Terry's glands, no vulvar lesions, no cervical lesions, good vaginal support, physiologic discharge present, normal appearing perineal body and perianal region, IUD strings visible BIMANUAL: uterus normal size, shape and consistency, no adnexal masses, and non-tender RECTOVAGINAL: deferred. NEURO: alert and oriented x3,exam grossly non-focal EXTREMITIES: normal ASSESSMENT/PLAN: 1) Health maintenance: Pap/HPV up to date. Mammogram starting age 40. Nutrition, exercise and routine health maintenance exams reviewed. Calcium/Vitamin D supplementation information provided. Colon cancer screening: up to date with screening 2) Contraception: IUD. Contraceptive options reviewed and information provided. 3) STD screening: Declined STD check. 4) Follow up one year or sooner as needed 5) has appt with endocrinology Marleni Avendaño MD Referring Provider: BRENDA ROY [[id number]] Allergies As of Date: 03/03/2024 Noted Allergy Reaction MORPHINE 01/09/2016 11 - Vomiting SEASONAL ALLERG (more content not included)... Normal [facility] Bacteria identifiedon 07-30- 2024 Bacteria identified Cx Nom (U) Test: Urine Culture Specimen Source: Clean Catch/Voided Specimen Type: Urine Specimen Date: 02/25/2024 170 Result Date: 02/27/2024 0944 Result Status: Final result Abnormal: No Resulting Lab: [facility] [id number] [place] [address] CULTURE No growth [facility] Comment on above: Performed By: #### 6 30-4 #### PRETTY Taylor ([id number]) [facility] ([facility]) [address] [place], [place] [address] CNPCarissa 02-07-2024 CNPN Telephone (OBGYWM) -- KERRIJENNIFER L ([id number]) 1980 F Date Time Provider Department 02/07/24 MARLENI ALMONTE During your visit today, we recorded the following information about you: Charissa Escobar RN 02/07/2024 4:21 PM Signed ----- Message from Marleni Freeman MD sent at 02/07/2024 12:52 PM EDT ----- Please call patient- who if any does she see for endocrinology? I am concerned now for ? Addisons disease (adrenal insufficiency)- given her history of autoimmune disorders, thyroid disease, and now I have two low insulin levels- her symptoms of Fatigue, joint pain. I am just concerned and would like a further work up since that is not my speciality. Charissa Escobar RN 02/07/2024 4:22 PM Signed Left message for patient to call office. JED Webb Jennifer, RN 02/07/2024 4:42 PM Signed Patient notified. She thought she seen an waist cutter years ago at [facility], but it was a framework developer. Consult order for Endo pending. 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 - Phentermine HCl (ADIPEX-P) 37.5 mg capsule Take 1 capsule by mouth daily before breakfast for 30 days. - levonorgestrel (MIRENA) 21 mcg/24 hours (8 yrs) 52 mg IUD 1 Each by INTRAUTERINE route as directed. - citalopram (CELEXA) 20 mg tablet Take 1 tablet by mouth once daily. - levothyroxine (SYNTHROID) 75 mcg tablet Take 1 tablet by mouth daily before breakfast. - fexofenadine (LINDSAY) 60 mg tablet Take by mouth. - Multivitamin capsule Take 1 capsule by mouth once daily. - Ferrous Sulfate (SLOW FE) 142 mg (45 mg iron) TbER Take 1 tablet by mouth every other day. - cyanocobalamin (VITAMIN B-12) 1,000 mcg tab Take 1 tablet by mouth once daily. 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 Crohn's disease of colon without complication (*02/04/2017 Alopecia [L65.9] 02/04/2017 Scotoma involving central area [H53.419] 02/07/2017 GBS bacteriuria [R82.71] 04/16/2017 Advanced maternal age in multigravida [O09.529] 04/18/2017 with history of section, ant*04/18/2017 12/03/2017 History of delivery, currently *04/18/2017 12/03/2017 History of thyroid disorder [Z86.39] 04/18/2017 History of Crohn's disease [Z87.19] 04/18/2017 Retinal disorder [H35.9] 04/18/2017 Patient requested diagnostic testing [Z01.89] 04/18/2017 12/03/2017 Thyroid disease [E07.9] 05/22/2022 Polyarthropathy, 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] 10/23/2022 Encounter Status:Closed by CHARISSA ESCOBAR on 02/10/24 Normal [facility] CBC panel Auto (Bld)on 02-04 Erythrocyte distribution width (RBC) [Ratio] 12.4 % Normal 11.5-15.0 [facility] Comment on above: Order Comment: Speci ivy Type: BLOOD SPECIMENOrdering Facility: [facility] Address: [address] [place] [address] Performed By: #### 5 8410-2 ####[facility] [id number] [place] [address] [place] Hematocrit (Bld) [Volume fraction] 39.7 % Normal 36.0-46.0 [facility] Comment on above: Order Comment: Speci men Type: BLOOD SPECIMENOrdering Facility: [facility] Address: [address] [place] [address] Performed By: #### 5 8410-2 ####[facility] [id number] [place] [address] [place] Hemoglobin (Bld) [Mass/Vol] 13.2 g/dL Normal 11.5-15.5 [facility] Comment on above: Order Comment: Speci men Type: BLOOD SPECIMENOrdering Facility: [facility] Address: [address] [place], [place] [address] Performed By: #### 5 8410-2 ####[facility] [id number] [place] [address] [place] MCH (RBC) [Entitic mass] 29.6 pg Normal 26.0-34.0 [facility] Comment on above: Order Comment: Speci men Type: BLOOD SPECIMENOrdering Facility: [facility] Address: [address] [place] [address] Performed By: #### 5 8410-2 ####[facility] [id number] [place] [address] [place] MCHC (RBC) [Mass/Vol] 33.2 g/dL Normal 30.5-36.0 [facility] Comment on above: Order Comment: Speci men Type: BLOOD SPECIMENOrdering Facility: [facility] Address: [address] [place] [address] Performed By: #### 5 8410-2 ####[facility] [id number] [place] [address] [place] MCV (RBC) [Entitic vol] 89.0 fL Normal 80.0-100.0 [facility] Comment on above: Order Comment: Speci men Type: BLOOD SPECIMENOrdering Facility: [facility] Address: [address] [place], [place] [address] Performed By: #### 5 8410-2 ####[facility] ERNCA [id number] [place] [address] [place] Nucleated RBC (Bld) [#/Vol] 10*3/uL Normal <0.01 [facility] Comment on above: Order Comment: Speci men Type: BLOOD SPECIMENOrdering Facility: [facility] Address: [address] [place] [address] Performed By: #### 5 8410-2 ####[facility] [id number] [place] [address] [place] Platelet mean volume (Bld) [Entitic vol] 8.3 fL Low 9.0-12.7 [facility] Comment on above: Order Comment: Speci men Type: BLOOD SPECIMENOrdering Facility: [facility] Address: [address] [place] [address] Performed By: #### 5 8410-2 ####[facility] DENIB[facility]ANI [id number] [place] [address] [place] Platelets (Bld) [#/Vol] 323 10*3/uL Normal 150-400 [facility] Comment on above: Order Comment: Speci men Type: BLOOD SPECIMENOrdering Facility: [facility] Address: [address] [place] [address] Performed By: #### 5 8410-2 ####[facility] ERNCEMELYA [id number] [place] [address] [place] RBC (Bld) [#/Vol] 4.46 10*6/uL Normal 3.90-5.20 [facility] Comment on above: Order Comment: Speci men Type: BLOOD SPECIMENOrdering Facility: [facility] Address: [address] [place] [address] Performed By: #### 5 8410-2 ####[facility] ERNCLIA [id number] [place] [address] [place] WBC (Bld) [#/Vol] 5.89 10*3/uL Normal 3.70-11.00 [facility] Comment on above: Order Comment: Speci men Type: BLOOD SPECIMENOrdering Facility: [facility] Address: [address] [place] [address] Performed By: #### 5 8410-2 ####[facility] MILLTOWNCLIA [id number] [place] [address] [place] Comprehensive metabolic 2000 panelon 02-05-2024 Albumin [Mass/Vol] 4.6 g/dL Normal 3.9-4.9 [facility] Comment on above: Order Comment: Speci men Type: BLOOD SPECIMENOrdering Facility: [facility] Address: [address] [place] [address] Performed By: #### 2 4323-8 ####[facility] MILLTOWNCLIA [id number] [place] [address] [place] ALP [Catalytic activity/Vol] 50 U/L Normal 34-123 [facility] Comment on above: Order Comment: Speci men Type: BLOOD SPECIMENOrdering Facility: [facility] Address: [address] [place] [address] Performed By: #### 2 4323-8 ####[facility]CL[facility] [id number] [address] [place] ALT [Catalytic activity/Vol] 10 U/L Normal 7-38 [facility] Comment on above: Order Comment: Speci men Type: BLOOD SPECIMENOrdering Facility: [facility] Address: [address] [place] [address] Performed By: #### 2 4323-8 ####[facility] MILLTOWNCLIA [id number] [place] [address] [place] Anion gap [Moles/Vol] 8 mmol/L Normal 8-15 [facility] Comment on above: Order Comment: Speci men Type: BLOOD SPECIMENOrdering Facility: [facility] Address: [address] [place] [address] Performed By: #### 2 4323-8 ####[facility] MILLTOWNCLIA [id number] [place] [address] [place] AST [Catalytic activity/Vol] 14 U/L Normal 13-35 [facility] Comment on above: Order Comment: Speci men Type: BLOOD SPECIMENOrdering Facility: [facility] Address: [address] [place] [address] Performed By: #### 2 4323-8 ####[facility] ERNCLIA [id number] [place] [address] [place] Bilirubin [Mass/Vol] 0.8 mg/dL Normal 0.2-1.3 [facility] Comment on above: Order Comment: Speci men Type: BLOOD SPECIMENOrdering Facility: [facility] Address: [address] [place] [address] Performed By: #### 2 4323-8 ####[facility] ERNCLIA [id number] [place] [address] [place] Calcium [Mass/Vol] 9.2 mg/dL Normal 8.5-10.2 [facility] Comment on above: Order Comment: Speci men Type: BLOOD SPECIMENOrdering Facility: [facility] Address: [address] [place] [address] Performed By: #### 2 4323-8 ####[facility] ERNCLIA [id number] [place] [address] [place] Chloride [Moles/Vol] 105 mmol/L Normal 98-107 [facility] Comment on above: Order Comment: Speci men Type: BLOOD SPECIMENOrdering Facility: [facility] Address: [address] [place] [address] Performed By: #### 2 4323-8 ####[facility] ERNCLIA [id number] [place] [address] [place] CO2 [Moles/Vol] 22 mmol/L Normal 22-30 [facility] Comment on above: Order Comment: Speci men Type: BLOOD SPECIMENOrdering Facility: [facility] Address: [address] [place] [address] Performed By: #### 2 4323-8 ####[facility] [id number] [place] [address] [place] Creatinine [Mass/Vol] 0.72 mg/dL Normal 0.58-0.96 [facility] Comment on above: Order Comment: Speci men Type: BLOOD SPECIMENOrdering Facility: [facility] Address: [address] [place] [address] Performed By: #### 2 4323-8 ####[facility]NCS[facility] [id number] [place] [address] [place] Creatinine and Glomerular filtration rate.predicted panel (S/P/Bld) 106 mL/min/1.73m??? Normal >=60 [facility] Comment on above: Order Comment: Speci men Type: BLOOD SPECIMENOrdering Facility: [facility] Address: [address] [place] [address] Result Comment: Marly mated Glomerular Filtration Rate (eGFR) is calculated using the 2020 CKD-EPI creatinine equation. This equation utilizes serum creatinine, sex, and age as parameters. The creatinine assay has traceable calibration to isotope dilution-mass spectrometry. Refer to KDIGO guidelines for clinical interpretation. In patients with unstable renal function, e.g. those with acute kidney injury, the eGFR may not accurately reflect actual GFR. Performed By: #### 2 4323-8 ####[facility] ERNCLIA [id number] [place] [address] [place] Glucose [Mass/Vol] 81 mg/dL Normal 74-99 [facility] Comment on above: Order Comment: Speci men Type: BLOOD SPECIMENOrdering Facility: [facility] Address: [address] [place] [address] Result Comment: The [place] Diabetes Association (ADA) provides guidance for cutoff values for fasting glucose and random glucose. The ADA defines fasting as no caloric intake for at least 8 hours. Fasting plasma glucose results between 100 to 125 mg/dL indicate increased risk for diabetes (prediabetes). Fasting plasma glucose results greater than or equal to 126 mg/dL meet the criteria for diagnosis of diabetes. In the absence of unequivocal hyperglycemia, results should be confirmed by repeat testing. In a patient with classic symptoms of hyperglycemia or hyperglycemic crisis, random plasma glucose results greater than or equal to 200 mg/dL meet the criteria for diagnosis of diabetes. Reference: Standards of Medical Care in Diabetes 2016, [place] Diabetes Association. Diabetes Care. 2016.39(Suppl 1). Performed By: #### 2 4323-8 ####[facility] MILLWWALIA [id number] [place] [address] [place] Potassium [Moles/Vol] 3.6 mmol/L Low 3.7-5.1 [facility] Comment on above: Order Comment: Speci men Type: BLOOD SPECIMENOrdering Facility: [facility] Address: [address] [place] [address] Performed By: #### 2 4323-8 ####[facility]OS[facility]IT[facility] [id number] [place] [address] [place] Protein [Mass/Vol] 7.9 g/dL Normal 6.3-8.0 [facility] Comment on above: Order Comment: Speci men Type: BLOOD SPECIMENOrdering Facility: [facility] Address: [address] [place] [address] Performed By: #### 2 4323-8 ####[facility] [id number] [place] [address] [place] Sodium [Moles/Vol] 135 mmol/L Low 136-144 [facility] Comment on above: Order Comment: Speci men Type: BLOOD SPECIMENOrdering Facility: [facility] Address: [address] [place] [address] Performed By: #### 2 4323-8 ####[facility] ERNCLIA [id number] [place] [address] [place] Urea nitrogen [Mass/Vol] 12 mg/dL Normal 7-21 [facility] Comment on above: Order Comment: Speci men Type: BLOOD SPECIMENOrdering Facility: [facility] Address: [address] [place] [address] Performed By: #### 2 4323-8 ####[facility] [id number] [place] [address] [place] Insulin SerPl-aCncon 024 Insulin Qn 2.1 u[IU]/mL Low 3.0-25.0 [facility] Comment on above: Order Comment: Speci men Type: BLOOD SPECIMENOrdering Facility: [facility] Address: [address] [place] [address] Performed By: #### 2 0448-7 ####[facility] LABCLIA [id number] [place] [address] [place] Lipid 1996 panelon 4 Cholesterol [Mass/Vol] 155 mg/dL Normal <200 [facility] Comment on above: Order Comment: Speci men Type: BLOOD SPECIMENOrdering Facility: [facility] Address: [address] [place] [address] Result Comment: <200 mg/dL, Desirable 200-239 mg/dL, Borderline high >239 mg/dL, High Performed By: #### 3 016-3 ####[facility] LABCLIA [id number] [place] [address] [place]#### 62508-7 ####[facility] LABCLIA [id number] [place] [address] [place] [facility] [id number] [place] [address] [place] Cholesterol in HDL [Mass/Vol] 66 mg/dL Normal >39 [facility] Comment on above: Order Comment: Speci men Type: BLOOD SPECIMENOrdering Facility: [facility] Address: [address] [place] [address] Result Comment: 40-5 9 mg/dL, Acceptable >59 mg/dL, High: Negative risk factor for coronary heart disease <40 mg/dL, Low: Positive risk factor for coronary heart disease Performed By: #### 3 016-3 ####[facility] LABCLIA [id number] [address] [place]#### [address]-9 ####[facility] LABCLIA [id number] [address] [id number] [address] [place] Cholesterol in LDL [Mass/Vol] 78 mg/dL Normal <100 [facility] Comment on above: Order Comment: Treyi men Type: BLOOD SPECIMENOrdering Facility: [facility] Address: [address] [place] [address] Result Comment: <100 mg/dL, Optimal 100-129 mg/dL, Near optimal/above optimal 130-159 mg/dL, Borderline high 160-189 mg/dL, High >189 mg/dL, Very high Secondary prevention optimal LDL Cholesterol levels are recommended to be < 70 mg/dL Performed By: #### 3 016-3 ####[facility] LABCLIA [id number] [address] [place]#### 48150-1 ####[facility] LABCLIA [id number] [address] [facility] [id number] [address] [place] Cholesterol in LDL/Cholesterol in HDL [Mass ratio] 1.18 {ratio} Normal <2.54 [facility] Comment on above: Order Comment: Speci men Type: BLOOD SPECIMENOrdering Facility: [facility] Address: [address] [place] [address] Result Comment: Michele adhikari: 1. National Cholesterol Education Program ATP III Guideline At-A-Glance Quick Desk Reference: National Heart, Lung, and Blood Centrahoma. National Institutes of Health. 2001: NIH Publication No. 01-3305. 2. An International Atherosclerosis Society position paper: global recommendations for the management of dyslipidemia: executive summary, Atherosclerosis. 2014: 232(2):410-413. Performed By: #### 3 016-3 ####[facility] LABCLIA [id number] [place] [address] [place]#### 79006-4 ####[facility] LABCLIA [id number] [address] [id number] [place] [address] [place] Cholesterol in VLDL [Mass/Vol] 11 mg/dL Normal <30 [facility] Comment on above: Order Comment: Speci men Type: BLOOD SPECIMENOrdering Facility: [facility] Address: [address] [place] [address] Performed By: #### 3 016-3 ####[facility] LABCLIA [id number] [place] [address] [place]#### 25546-0 ####[facility] LABCLIA [id number] [address] [id number] [place] [address] [place] Cholesterol non HDL [Mass/Vol] 89 mg/dL Normal <130 [facility] Comment on above: Order Comment: Speci men Type: BLOOD SPECIMENOrdering Facility: [facility] Address: [address] [place] [address] Result Comment: <130 mg/dL, Optimal 130-159 mg/dL, Near optimal/above optimal 160-189 mg/dL, Borderline high 190-219 mg/dL, High >219 mg/dL, Very high Secondary prevention optimal non HDL Cholesterol levels are recommended to be <100 mg/dL Performed By: #### 3 016-3 ####[facility] LABCLIA [id number] [place] [address] [place]#### 55686-0 ####[facility] LABCLIA [id number] [address] [id number] [place] [address] [place] Cholesterol.total/Cho lesterol in HDL [Mass ratio] 2.35 {ratio} Normal <5.10 [facility] Comment on above: Order Comment: Speci men Type: BLOOD SPECIMENOrdering Facility: [facility] Address: [address] [place] [address] Performed By: #### 3 016-3 ####[facility] LABCLIA [id number] [place] [address] [place]#### 18884-9 ####[facility] LABCLIA [id number] [place] [id number] [place] [address] [place] FASTING TIME 12 hrs Normal [facility] Comment on above: Order Comment: Speci men Type: BLOOD SPECIMENOrdering Facility: [facility] Address: [address] [place] [address] Performed By: #### 3 016-3 ####[facility] LABCLIA [id number] [place] [id number] [place]#### 59211-4 ####[facility] LABCLIA [id number] [place] AVENUEDESK [id number] [id number] [place] [address] [place] Triglyceride [Mass/Vol] 55 mg/dL Normal <150 [facility] Comment on above: Order Comment: Speci men Type: BLOOD SPECIMENOrdering Facility: [facility] Address: [address] [place] [address] Result Comment: <150 mg/dL, Normal 150-199 mg/dL, Borderline high 200-499 mg/dL, High >499 mg/dL, Very high Performed By: #### 3 016-3 ####[facility] LABCLIA [id number] [address]#### [address]-1 ####[facility] LABCLIA [id number] [address] [id number] [place] [address] [place] [facility] TSH Qn 1.790 m[IU]/L Normal 0.270-4.20 0 [facility] Comment on above: Order Comment: Speci men Type: BLOOD SPECIMENOrdering Facility: [facility] Address: [address] [place] [address] Result Comment: If t he patient is , TSH reference range varies by gestational period: First Trimester (weeks 9-12): 0.180-2.990 mIU/L Second Trimester: 0.110-3.980 mIU/L Third Trimester: 0.480-4.710 mIU/L Kel Taylor et al. A Practical Approach for the Verifications and Determination of Site- and Trimester-Specific Reference Intervals for Thyroid Function tests in . Thyroid, 2019:29:3:412-420. Jourdan Martínez et al. 2017 Guidelines of the [place] Thyroid Association for the Diagnosis and Management of Thyroid Disease during and the . Thyroid, 2017:27:3:315-389. Performed By: #### 3 016-3 ####[facility] LABCLIA [id number] [place] [id number] [place]#### [id number] ####[facility] LABCLIA [id number] [place] [id number] [place] OF [facility] [place] [id number] [address] STATES OF [facility] CNOVon 01-28-2024 CNOV Office Visit (OBGYWM ) -- KERRIJENNIFER ([id number]) 1980 F Date Time Provider Department 01/28/24 9:50 AM MARLENI ALMONTE OBGYWM During your visit today, we recorded the following information about you: Pulse Blood pressure Weight 88/minute 124/82 78 kg Marleni Almonte MD 01/28/2024 10:42 AM Signed Some documentation from previous visit of 10/29/2023 was copied and pasted, documentation has been reviewed and edited as necessary for today's visit. Patient Summary: Jennifer is a 43 year old Female who presents for follow-up evaluation of obesity/weight management to treat and prevent related co-morbidities. In our previous visits we have discussed lifestyle intervention including a nutrition recommendations and physical activity optimization. Her last office visit was 3 months ago. Assessment/plan from last visit: -Reviewed tracking food and weighing food - cut out carbs for breakfast- add in extra shake later in day - discussed more protein then carbs for dinner - will try Ibuprofen 600 q6 x 10 days for aub if fails will do trial of estrogen - Sleep hygiene and stress levels impact on weight - has met requirement to stay on phentermine, topiramate off label use- no SE and overall doing well. - weight set point reviewed - refills given Interval History PT specifies the following items as new or significant updates since the last appointment: - feeling good, more energy - not snacking but staying active - walking but can't get in routine of resistance training but does enjoy it - eating same things but does want new ideas - had stomach bug recently- feeling better - really active outside over the summer - happy with progress, wants to keep losing STARTING WEIGHT WITH first dose phentermine 209lbs(05/22/2022) went to 190lbs Then restarted 10/18 195lbs Date: Wt: 01/28/2024 172 lb 10/29/2023 175lb 08/13/2023 178lb 05/16/2023 177 lb (80.3 kg) 02/20/2023 184 lb (83.5 kg) Weight loss since last vist: 3lbs Anti-obesity medications: Phentermine. Benefit:suppression appetite Adverse effects: none Anti-obesity medications: Topiramate. Benefit:?? Unsure if she can notice Adverse effects: none Weight promoting medications: Other celexa Previous Diet (initial appointment): Dietary changes: B-protein shake or Quest Bar or yogurt and cottage cheese L- yogurt and cottage and berries, 2 eggs, veggies, cheese or protein D- Tries not to eat late- PROTEIN first veggies and GF pasta (measures) if she gets to it S- light and fit popcorn, Fluids - Eating 3 meals a day, including breakfast Increasing water intake Controlling portions Identify hunger and satiety cues Increasing protein Reducing carbohydrates Current Barriers: poor sleep hygiene and inadequate sleep duration poor sleep hygiene and inadequate sleep duration Exercise: elipitical, walking 3 x week , Stress: stable Sleep: not great- goes to bed late CrCl cannot be calculated (Patient's most recent lab result is older than the maximum 180 days allowed.). 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 1 Each 0 topiramate (TOPAMAX) 50 mg tablet Take 1 tablet by mouth once daily. 90 tablet 0 citalopram (CELEXA) 20 mg tablet Take 1 tablet by mouth once daily. 90 tablet 1 levothyroxine (SYNTHROID) 75 mcg tablet Take 1 tablet by mouth daily before breakfast. 90 tablet 1 fexofenadine (LINDSAY) 60 mg tablet Take by mouth. Multivitamin capsule Take 1 capsule by mouth once daily. cyanocobalamin (VITAMIN B-12) 1,000 mcg tab Take 1 tablet by mouth once daily. Ferrous Sulfate (SLOW FE) 142 mg (45 mg iron) TbER Take 1 tablet by mouth every other day. 15 tablet 3 No current facility-administered medications for this visit. 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 Physical Exam Waist circumference: 37.25--> 36.75--36.75 -->not done this visit Results: recent labs reviewed with the patient. Latest Ref Rng AND Units 09/13/2022 CMP Sodium 136 - 144 mmol/L 135 Potassium 3.7 - 5.1 mmol/L 3.9 Chloride 97 - 105 mmol/L 102 CO2 22 - 30 mmol/L 25 Glucose 74 - 99 mg/dL 96 BUN 7 - 21 mg/dL 15 Creatinine 0.58 - 0.96 mg/dL 0 (more content not included)... Normal [facility] US Pelvison 11-22-2023 Indication Abnormal uterine bleeding Impression A retroverted uterus seen that measures 76 mm x 43 mm x 52 mm. The myometrium is suspicious of adenomyosis but no obvious fibroids are observed. 3D rendering of the uterus demonstrates a malpositioned IUD with the device placed incorrectly, too low in the cavity. The central endometrium complex measures 3.1 mm in combined thickness. No abnormal blood flow to suggest a polyp or focal endometrial pathology is observed within the endometrial complex. The contour of the endometrial cavity was normal on 3-D imaging. The left ovary is normal appearing. There is a right ovarian cyst present that measures 3.8 cm in size. The cyst has an internal reticular pattern. There is a small amount of free fluid present. Recommendations Typical hemorrhagic cyst, premenopausal < 5 cm, no follow up imaging is needed. IUD in lower uterine cavity. Possible adenomyosis. Clinical correlation is recommended. Method Transabdominal, transvaginal, 3D ultrasound examination, Color Doppler examination Uterus Uterus: Visualized Uterus position: retroverted Myometrium: suspicious of adenomyosis Uterus length 76 mm Uterus width 52 mm Uterus height 43 mm Uterus Vol 89.5 cm Endometrial thickness, total 3.1 mm IUCD Position control Location: placed incorrectly, too low in the cavity Right Ovary Rt ovary: Visualized Rt ovary D1 40 mm Rt ovary D2 47 mm Rt ovary D3 29 mm Rt ovary Vol 28.4 cm Rt ovarian cyst D1 31 mm Rt ovarian cyst D2 29 mm Rt ovarian cyst D3 38 mm Rt ovarian cyst mean 32.7 mm Rt ovarian cyst vol 17.887 cm Rt ovarian cyst findings: Hemorrhagic cyst with reticular pattern/clot Left Ovary Lt ovary: Visualized Lt ovary D1 44 mm Lt ovary D2 18 mm Lt ovary D3 17 mm Lt ovary Vol 6.9 cm Cul de Sac Visualized. no free fluid visualized Performed By: Mirian Mcclellan RDMS, RVT Read By: Yudelka Carrizales M.D. MATERNAL MEDICINE [facility] US Pelvison 11-21-2023 Radiology Study observation (narrative) [facility] CBC panel Auto (Bld)on 02-20 Erythrocyte distribution width (RBC) [Ratio] 13.0 % 11.5 - 15.0 % [facility] Hematocrit (Bld) [Volume fraction] 38.8 % 36.0 - 46.0 % [facility] Hemoglobin (Bld) [Mass/Vol] 13.1 g/dL 11.5 - 15.5 g/dL [facility] MCH (RBC) [Entitic mass] 30.2 pg 26.0 - 34.0 pg [facility] MCHC (RBC) [Mass/Vol] 33.8 g/dL 30.5 - 36.0 g/dL [facility] MCV (RBC) [Entitic vol] 89.4 fL 80.0 - 100.0 fL [facility] Nucleated RBC (Bld) [#/Vol] <0.01 k/uL [facility] Platelet mean volume (Bld) [Entitic vol] 8.3 fL Low 9.0 - 12.7 fL [facility] Platelets (Bld) [#/Vol] 336 10*3/uL 150 - 400 k/uL [facility] RBC (Bld) [#/Vol] 4.34 10*6/uL 3.90 - 5.20 m/uL [facility] WBC (Bld) [#/Vol] 5.20 10*3/uL 3.70 - 11.00 k/uL [facility] ESTRADIOL-17B BLDon 02-21-20 E2 [Mass/Vol] 81 pg/mL [facility] FERRITIN BLDon 02-20-2023 Ferritin [Mass/Vol] 23.5 ng/mL 14.7 - 205.1 ng/mL [facility] HbA1c (d)on 02-20-2023 Average glucose Estimated from glycated hemoglobin (d) [Mass/Vol] 100 mg/dL [facility] HbA1c (d) [Mass fraction] 5.1 % 4.3 - 5.6 % [facility] INSULIN ASSAY BLOODon 2022 Insulin Qn 2.8 u[IU]/mL Low 3.0 - 25.0 mU/L [facility] Iron and Iron binding capaci ty panelon 02-20-2023 Iron [Mass/Vol] 64 ug/dL 41 - 186 ug/dL [facility] Iron binding capacity [Mass/Vol] 379 ug/dL 232 - 386 ug/dL [facility] Iron/TIBC [Molar ratio] 16.9 % 15.0 - 57.0 % [facility] T4 FREE/FREE THYROXon 2022 Free T4 [Mass/Vol] 1.2 ng/dL 0.9 - 1.7 ng/dL [facility] TSH Don 02-20-2023 TSH Qn 1.420 m[IU]/L 0.270 - 4.200 mIU/L [facility] VITAMIN B12 BLOODon 02-21-20 Cobalamin (Vitamin B12) [Mass/Vol] 647 pg/mL 232 - 1,245 pg/mL [facility] VITAMIN D 25 HYDROXYon 02-20 25-hydroxyvitamin D3 [Mass/Vol] 45.0 ng/mL 31.0 - 80.0 ng/mL [facility] UA DIP, URINE (POC)on 2021 BILIRUBIN UA (POCT) Negative Negative [facility] CLARITY UA (POCT) Clear [facility] COLOR UA (POCT) Yellow [facility] GLUCOSE UA (POCT) Negative Negative mg/dL [facility] HEMOGLOBIN/BLOOD UA (POCT) Large Abnormal Negative [facility] KETONE UA (POCT) Negative Negative mg/dL [facility] LEUKOCYTES UA (POCT) Negative [facility] NITRITE UA (POCT) Negative Negative [facility] PH UA (POCT) 5.5 4.5 - 8.0 [facility] Protein Ql (U) Negative Negative mg/dL [facility] SPECIFIC GRAVITY UA (POCT) 1.015 1.005 - 1.030 [facility] UROBILINOGEN UA (POCT) 0.2 E.U./dL Normal E.U./dL [facility] Urinalysis - DIPSTICKon 11-28 Appearance (U) clear [employer] Other Bilirubin Ql (U) -- [facility] Other Color (U) light orange [employer] Other Glucose Ql (U) -- [employer] Other Hemoglobin Ql (U) moderate [employer] Other Ketones Ql (U) -- [employer] Other Leukocyte esterase Test strip Ql (U) -- [employer] Other Nitrite Ql (U) -- [employer] Other pH (U) -- [employer] Other Protein Ql (U) -- [employer] Other Specific gravity (U) [Rel density] 1.005 [employer] Other Urobilinogen (U) [Mass/Vol] -- [employer] Other Urinalysis - DIPSTICK [employer] Other Urine Cultureon 12-25-2021 Urine Culture 15,000 [employer] Other Urine Culture <16 Susceptible [employer] Other Urine Culture <8 Susceptible [employer] Other Urine Culture <4 Susceptible [employer] Other Urine Culture <2 Susceptible [employer] Other Urine Culture <1 Susceptible [employer] Other Urine Culture <0.5 Susceptible [employer] Other Urine Culture <32 Susceptible [employer] Other Urine Culture >8 Resistant [employer] Other Urine Culture <2/38 Susceptible [employer] Other Bacteria identified Cx Nom (U) ORGANISM: Escherichia coli (O:ESCCOL) Patterson Count 15,000 Aerobic ADRIAN Charge (NUC86) SUSCEPTIBILITY ORGANISM: O:ESCCOL ANTIBIOTIC INTERPRETATION ADRIAN Amikacin S <16 Ampicillin S <8 Ampicillin/Sulbactam S <8/4 Aztreonam S <4 Cefazolin S <2 Cefepime S <2 Ceftazidime S <1 Ceftazidime/Avibactam S <8 Ceftriaxone S <1 Ciprofloxacin S <1 Ertapenem S <0.5 Gentamicin S <4 Levofloxacin S <2 Meropenem S <1 Nitrofurantoin S <32 Piperacillin/Tazobactam S <16 Tetracycline R >8 Tigecycline S <2 Tobramycin S <4 Trimethoprim/Sulfamethoxaz ole S <2/38 S = SUSCEPTIBLE I = INTERMEDIATE R = RESISTANT BLANK = DATA NOT AVAILABLE, OR DRUG NOT ADVISABLE OR TESTED R* = RESISTANCE DUE TO EXTENDED SPECTRUM BETA-LACTAMASES ESBL = EXTENDED SPECTRUM BETA-LACTAMASE TFG = THYMIDINE-DEPENDENT STRAIN IVANA = BETA-LACTAMASE POSITIVE IB = INDUCIBLE BETA-LACTAMASE. APPEARS IN PLACE OF 'S' WITH SPECIES KNOWN TO POSSESS INDUCIBLE BETA-LACTAMASES. POTENTIALLY THEY MAY BECOME RESISTANT TO ALL B-LACTAM DRUGS. PERFORMED BY: [place] [id number] PATHOLOGIST [employer]FORM PLATE MAKER AMADO ROME M.D. Normal [facility] Comment on above: Performed By: #### C UU #### [address] Provider Note - ED v3on 09-26 Provider Note - ED v3 Provider Note: Chart Review: ED NOTES ED NOTES: Patient presents for evaluation of urinary burning, frequency and urgency as well as mild suprapubic tenderness that has been ongoing for the past 24 hours. Patient states she has not had a UTI in the past 3 to 6 months. She states she has had a UTI before. Denies any fever, vaginal discharge or itching, nausea/vomiting/diarrhea, low back pain, CVA tenderness, body aches, fatigue, dizziness or any other constitutional symptoms or complaints. Has been using Pyridium OTC x1 dose. Denies any concerns for STDs. HISTORY OF PRESENTING ILLNESS JENNIFER is a 41 year old Female and was seen by me at 07-Oct-2021 11:32. Triage Information: Most recent Vital Sign Value Date PAST MEDICAL HISTORY ALLERGIES/INTOLERANCES: Allergy Allergen: Allergy Status Unknown Type: Reaction: Intolerance Allergen: morphine Type: Drug Reaction: Nausea/Vomiting HEALTH HISTORY: Medical History Name:Alopecia Code:L65.9 Name:Crohn's disease Code:K50.90 Name:Hypothyroid Code:E03.9 Name:Arthritis Code:M19.90 OUTPATIENT MEDICATIONS: Home Medications Review Status for Reconciliation: Not Done Med Status: Patient Currently Takes Medications Drug Name: Lindsay 60 mg oral tablet Instructions: 1 tab(s) orally once a day (at bedtime) Drug Name: levothyroxine 75 mcg (0.075 mg) oral capsule Instructions: 1 cap(s) orally once a day Drug Name: Vitamin B12 Instructions: sublingual once a day Drug Name: citalopram 20 mg oral tablet Instructions: 1 tab(s) orally once a day Drug Name: sulfamethoxazole-trimethop rim 800 mg-160 mg oral tablet Instructions: 1 tab(s) orally every 12 hours Drug Name: Diflucan 150 mg oral tablet Instructions: 1 tab(s) orally once Drug Name: Bactrim DS 800 mg-160 mg oral tablet Instructions: 1 tab(s) orally 2 times a day Drug Name: Pyridium 200 mg oral tablet Instructions: 1 tab(s) orally 3 times a day SIGNIFICANT EVENTS: Other Description:NON SMOKER Additional Notes:06/2020 Past Medical History Description:CHRONES DISEASE Additional Notes:06/2020 Description:ASTHMA Additional Notes:06/2020 Description:ALIPISHA Additional Notes:01/2021 Past Surgical History Description:NO SURGICAL HISTORY THIS YEAR Additional Notes:06/2020 Description:APPENDECTOMY AERODYNAMICIST: Is : no Is : no MDM MDM/ED COURSE: Rx for Bactrim DS and Pyridium. Urinalysis with small leukocytes, positive nitrates, urobilinogen 0.2, negative protein, pH 6.0, moderate blood, specific gravity 1.005, negative ketones, negative bilirubin, negative glucose. Urine sent for culture. Encourage patient to increase water intake, avoid caffeine/sugary drinks, void after bowel movements and voiding, void after intercourse, avoid baths and hot tubs. Patient's clinical presentation is otherwise unremarkable at this time. Patient is discharged with instructions to follow-up with primary care or seek emergency medical attention for worsening symptoms or any new concerns. DISPOSITION Diagnosis/Annotation: ED Dx Name:Abbi with urination Code:R30.0 Disposition: discharged Type: home CONSULT CRITICAL CARE TIME Is this a critically ill patient: no Electronic Signatures: Michael Patton (WAREHOUSE DISTRIBUTION SPECIALIST-ARTIFICIAL TEETH INSPECTOR) (Signed 07-Oct-2021 11:47) Authored: ED Notes, HPI, PMH, PE, MDM/ED Course, Clinical Impression, Attestation, Chart Review, Scores Last Updated: 07-Oct-2021 11:47 by Michael Patton (WAREHOUSE DISTRIBUTION SPECIALIST-ARTIFICIAL TEETH INSPECTOR) [facility] URINE CULTURE,BACTERIALon URINE CULTURE,BACTERIAL PATIENT: JENNIFER MANNING LOCATION: [id number] BILL#: [id number] : 78 AGE: SEX: F ORDERED BY: MICHAEL PATTON SOURCE: URINE COLLECTED: 10/07/21 14:00 ANTIBIOTICS AT JOE.: RECEIVED : 10/07/21 21:56 SITE: Clean Catch/Voided R E S U L T S URINE CULTURE,BACTERIAL FINAL 10/08/21 14:59 NO SIGNIFICANT GROWTH. Normal [facility] Comment on above: Performed By: #### U [facility] #### [facility] [address] [place] [address] Provider Note - ED v2on 03-30 Provider Note - ED v2 Provider Note - ED v2: Chart Review: HISTORY OF PRESENTING ILLNESS JENNIFER is a 40 year old Female and was seen by me at 25-Apr-2021 13:18 for a chief complaint of urinary symptoms. The historian is the patient. Additional Details: Patient presents with 1 day history of UTI symptoms. Patient endorses burning with urination, increased frequency/urgency, fever at home of 101, mild lower back pain. She denies persistent fever, nausea, vomiting, diarrhea. She has taken the Pyridium for her symptoms with some improvement. Triage Information: Most recent Vital Sign Value Date PAST MEDICAL HISTORY ATTESTATION: I have reviewed and confirmed nurse's/medic's notes for patient's medications, allergies, and medical, surgical, family and social history ALLERGIES/INTOLERANCES: Allergy Allergen: Allergy Status Unknown Type: Reaction: Intolerance Allergen: morphine Type: Drug Reaction: Nausea/Vomiting HEALTH HISTORY: Medical History Name:Alopecia Code:L65.9 Name:Crohn's disease Code:K50.90 Name:Hypothyroid Code:E03.9 Name:Arthritis Code:M19.90 OUTPATIENT MEDICATIONS: Home Medications Review Status for Reconciliation: Complete Med Status: Patient Currently Takes Medications Drug Name: Lindsay 60 mg oral tablet Instructions: 1 tab(s) orally once a day (at bedtime) Drug Name: levothyroxine 75 mcg (0.075 mg) oral capsule Instructions: 1 cap(s) orally once a day Drug Name: Vitamin B12 Instructions: sublingual once a day Drug Name: citalopram 20 mg oral tablet Instructions: 1 tab(s) orally once a day Drug Name: sulfamethoxazole-trimethop rim 800 mg-160 mg oral tablet Instructions: 1 tab(s) orally every 12 hours Drug Name: Pyridium 200 mg oral tablet Instructions: 1 tab(s) orally 3 times a day Drug Name: Diflucan 150 mg oral tablet Instructions: 1 tab(s) orally once SIGNIFICANT EVENTS: Other Description:NON SMOKER Additional Notes:06/2020 Past Medical History Description:CHRONES DISEASE Additional Notes:06/2020 Description:ASTHMA Additional Notes:06/2020 Description:ALIPISHA Additional Notes:01/2021 Past Surgical History Description:NO SURGICAL HISTORY THIS YEAR Additional Notes:06/2020 Description:APPENDECTOMY AERODYNAMICIST: Is : no Is : no REVIEW OF SYSTEMS CONSTITUTIONAL: POSITIVE for: fever Negative for: chills CARDIOVASCULAR: Negative for: chest pain RESPIRATORY: Negative for: dyspnea GASTROINTESTINAL: Negative for: nausea and vomiting; GENITOURINARY: POSITIVE for: dysuria, frequency and urgency; Negative for: hematuria; MUSCULOSKELETAL: POSITIVE for: back pain All other systems reviewed and are negative RESULTS/VITAL SIGNS VITAL SIGNS: T PRBP SpO2O2(LPM) %FiO2 Method 25-Apr-2021 12:30:[id number] PHYSICAL EXAM CONSTITUTIONAL: Appearance: well appearing Development: well developed Distress: no apparent Manner: appropriate for situation Mentation: awake and alert Mood: appropriate Nourishment: well HENMT: Head Examination: atraumatic Face: no signs of abnormality EYES: Bilteral Eyes: clear Left Conjunctiva: clear Right Conjunctiva: clear CARDIOVASCULAR: Cardiac Rhythm: regular Cardiac Rate: normal RESPIRATORY: Respiratory Distress: no respiratory distress Breath Sounds: normal breath sounds GENITOURINARY: Bladder: TENDER CVA Tenderness: RIGHT TENDERNESS NEUROLOGICAL: Level of Consciousness: alert and follows commands Memory: memory/cognition intact Speech: clear Gait and Weight Bearing: normal SKIN: Skin normal color for race, warm, dry and intact. No evidence of trauma. PSYCHIATRIC: Alert and oriented to person, place, time/situation. normal mood and affect. No apparent risk to self or others. MEDICAL DECISION MAKING/ED COURSE MDM/ED COURSE: Differential Diagnosis: (URI, COVID, sinusitis) Discussed Findings with: patient Data Reviewed: vital signs Awaiting: lab results Treatment Plan: Prescription given for bactrim and pyridium. Urine sent for culture. Advised patient to follow-up if she experiences increase in symptoms, fever, chills, CVA tenderness. Discussed measures to prevent UTI reoccurrence. Patient verbalized understanding. The pt's clinical presentation is otherwise unremarkable at this time. Based on exam and clinical findings the pt is stable for discharge with instructions to follow up with primary care or seek emergency medical attention for worsening symptoms or any new concerns. CLINICAL IMPRESSION Diagnosis/Annotation: ED Dx Name:UTI (urinary tract infection) Code:N39.0 Disposition: discharged Type: home ATTESTATION CRITICAL CARE TIME Is this a critically ill patient: no Electronic Signatures: Tanja Gil (WAREHOUSE DISTRIBUTION SPECIALIST-ARTIFICIAL TEETH INSPECTOR) (Signed 25-Apr-2021 14:36) Authored: HPI, PMH, ROS, PE, Results/Vital Sig (more content not included)... [facility] URINE CULTURE,BACTERIALon URINE CULTURE,BACTERIAL PATIENT: JENNIFER MANNING LOCATION: [facility]#: [id number] : 78 AGE: SEX: F ORDERED BY: TANJA GIL SOURCE: URINE COLLECTED: 04/25/21 13:23 ANTIBIOTICS AT JOE.: RECEIVED : 04/25/21 23:06 SITE: [facility]ia [facility] U L T S URINE CULTURE,BACTERIAL FINAL 04/26/21 19:12 NO SIGNIFICANT GROWTH. [facility] Comment on above: Performed By: #### U [facility] #### [facility] [address] [place] [address] Provider Note - ED v2on 07-0 Provider Note - ED v2 Provider Note - ED v2: Chart Review: HISTORY OF PRESENTING ILLNESS JENNIFER is a 40 year old Female and was seen by me at 31-Jan-2021 13:15 for a chief complaint of urinary tract infection. The historian is the patient. Additional Details: Patient presents with 1 day history of burning with urination, increased frequency, increased urgency. She states she has had UTIs in the past and this is consistent with her symptoms. She denies fever, chills, nausea, vomiting, back pain, body aches, fatigue. She has not taken anything for her symptoms. Triage Information: Most recent Vital Sign Value Date PAST MEDICAL HISTORY ATTESTATION: I have reviewed and confirmed nurse's/medic's notes for patient's medications, allergies, and medical, surgical, family and social history ALLERGIES/INTOLERANCES: Allergy Allergen: Allergy Status Unknown Type: Reaction: Intolerance Allergen: morphine Type: Drug Reaction: Nausea/Vomiting HEALTH HISTORY: Medical History Name:Alopecia Code:L65.9 Name:Crohn's disease Code:K50.90 Name:Hypothyroid Code:E03.9 Name:Arthritis Code:M19.90 OUTPATIENT MEDICATIONS: Home Medications Review Status for Reconciliation: Complete Med Status: Patient Currently Takes Medications Drug Name: Lindsay 60 mg oral tablet Instructions: 1 tab(s) orally once a day (at bedtime) Drug Name: levothyroxine 75 mcg (0.075 mg) oral capsule Instructions: 1 cap(s) orally once a day Drug Name: Vitamin B12 Instructions: sublingual once a day Drug Name: citalopram 20 mg oral tablet Instructions: 1 tab(s) orally once a day Drug Name: nitrofurantoin macrocrystals 100 mg oral capsule Instructions: 1 cap(s) orally every 12 hours Drug Name: Pyridium 200 mg oral tablet Instructions: 1 tab(s) orally 3 times a day SIGNIFICANT EVENTS: Other Description:NON SMOKER Additional Notes:06/2020 Past Medical History Description:CHRONES DISEASE Additional Notes:06/2020 Description:ASTHMA Additional Notes:06/2020 Description:ALIPISHA Additional Notes:01/2021 Past Surgical History Description:NO SURGICAL HISTORY THIS YEAR Additional Notes:06/2020 Description:APPENDECTOMY AERODYNAMICIST: Is : no Is : no REVIEW OF SYSTEMS CONSTITUTIONAL: Negative for: chills and fever CARDIOVASCULAR: Negative for: chest pain RESPIRATORY: Negative for: dyspnea GASTROINTESTINAL: Negative for: nausea and vomiting; GENITOURINARY: POSITIVE for: dysuria, frequency and urgency; Negative for: hematuria; MUSCULOSKELETAL: Negative for: back pain All other systems reviewed and are negative RESULTS/VITAL SIGNS VITAL SIGNS: T PRBP SpO2O2(LPM) %FiO2 Method 31-Jan-2021 12:51:[id number]/75 98 PHYSICAL EXAM CONSTITUTIONAL: Appearance: well appearing Development: well developed Distress: no apparent Manner: appropriate for situation Mentation: awake and alert Mood: appropriate Nourishment: well HENMT: Head Examination: atraumatic Face: no signs of abnormality EYES: Bilteral Eyes: clear and PERRL Left Conjunctiva: clear Right Conjunctiva: clear CARDIOVASCULAR: Cardiac Rhythm: regular Cardiac Rate: normal RESPIRATORY: Respiratory Distress: no respiratory distress Breath Sounds: normal breath sounds GENITOURINARY: Bladder: TENDER CVA Tenderness: no tenderness NEUROLOGICAL: Level of Consciousness: alert and follows commands Memory: memory/cognition intact Speech: clear Gait and Weight Bearing: normal SKIN: Skin normal color for race, warm, dry and intact. No evidence of trauma. PSYCHIATRIC: Alert and oriented to person, place, time/situation. normal mood and affect. No apparent risk to self or others. MEDICAL DECISION MAKING/ED COURSE MDM/ED COURSE: Differential Diagnosis: pyelonephritis, urinary retention and urinary tract infection Discussed Findings with: patient Data Reviewed: vital signs Awaiting: lab results Treatment Plan: Prescription given for Macrobid and pyridium. Urine sent for culture. Advised patient to follow-up if she experiences increase in symptoms, fever, chills, CVA tenderness. Discussed measures to prevent UTI reoccurrence. Patient verbalized understanding. The pt's clinical presentation is otherwise unremarkable at this time. Based on exam and clinical findings the pt is stable for discharge with instructions to follow up with primary care or seek emergency medical attention for worsening symptoms or any new concerns. CLINICAL IMPRESSION Diagnosis/Annotation: ED Dx Name:UTI (urinary tract infection) Code:N39.0 Disposition: discharged Type: home ATTESTATION CRITICAL CARE TIME Is this a critically ill patient: no Electronic Signatures: Tanja Gil (WAREHOUSE DISTRIBUTION SPECIALIST-ARTIFICIAL TEETH INSPECTOR) (Signed 31-Jan-2021 14:37) Authored: HPI, PMH, ROS, PE, Results/Vital Signs, MDM/ED Course, Clinical Impre (more content not included)... Normal [facility] URINE CULTURE,BACTERIALon URINE CULTURE,BACTERIAL PATIENT: JENNIFER MANNING LOCATION: [facility]#: [id number] : 78 AGE: SEX: F ORDERED BY: TANJA GIL SOURCE: URINE COLLECTED: 01/31/21 13:32 ANTIBIOTICS AT JOE.: RECEIVED : 01/31/21 23:20 SITE: R E S U L T S URINE CULTURE,BACTERIAL FINAL 02/01/21 17:30 NO SIGNIFICANT GROWTH. [facility] Comment on above: Performed By: #### [facility] #### [facility] [address] [place] [address] Primary Care Visit (Text/For ms)on 03-02-2020 Primary Care Visit (Text/Forms) Diagnoses/Problems Assessed Vitamin B12 deficiency (266.2) (E53.8) Generalized anxiety disorder (300.02) (F41.1) Orders Generalized anxiety disorder Start: Citalopram Hydrobromide 10 MG Oral Tablet (CeleXA); Take 1 tablet daily Follow-up visit in 3 weeks Outpatient Follow-up Status: Complete Done: [id number] Vitamin B12 deficiency Vitamin B12, Serum; Specimen Source:Blood (BLD); Status:Active; Requested for:[id number]; Provider Impressions Provider Impressions Free Text Note Form: Change B12 1000 mcg IM inj frequency to every 2 weeks Trial of celexa Counseled pt on possible adverse rxns associated w/ new med - pt ok w/ risks Instructed pt to make a f/u appt in 3-4 weeks Counseled pt on warning signs of when to present back to clinic earlier and/or ER Chief Complaint f/u B12 def + Anxiety History of Present Illness Vit B12 def Improving, however, B12 level still not at goal Currently getting IM B12 1000 mcg inj every 3 weeks Anxiety not controlled Pt would like to try something Has never tried anything in the past Review of Systems Review of Systems Constitutional: No fever, No chills. Respiratory: No shortness of breath, No cough. Cardiovascular: No chest pain, No palpitations. Gastrointestinal: No nausea, No vomiting. 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) Right shoulder pain (719.41) (M25.511) Vitamin B12 deficiency (266.2) (E53.8) Surgical History Problems History of section History of Colonoscopy History of Esophagogastroduodenoscopy Family History Mother Family history of mitral valve disorder (V17.49) (Z82.49) Sister Family history of mitral valve disorder (V17.49) (Z82.49) Social History Problems Consumes alcohol occasionally (V49.89) (Z78.9) Never a smoker No illicit drug use No recent domestic travel No recent foreign travel Current Meds Medication NameInstruction Levothyroxine Sodium 75 MCG Oral TabletTake 1 tablet daily Naproxen 500 MG Oral TabletTAKE 1 TABLET Twice daily. Take with food and 8 oz of water. Do not take ibuprofen, aleve or motrin with this. Allergies Medication morphine NonMedication Pollen Ragweed Vitals Vital Signs Recorded: 78Ktr0194 08:28AM Heart Rate: 72 Systolic: 122 Diastolic: 80 Height: 5 ft 6 in Weight: 202 lb 4.8 oz BMI Calculated: 32.65 BSA Calculated: 2.01 Physical Exam Constitutional - Well developed, well nourished, well hydrated and no acute distress. Vital signs reviewed. Neurologic - Alert. Psychiatric - Cooperative. Time Time Spent With Patient: 25 minutes of which greater than 50 percent was spent counseling and or coordinating care. Signatures Electronically signed by : Lito Hernandez, ; Mar 06 2020 7:20PM EST (Author) [facility] C Reactive Protein, Serumon 02-29-2020 CRP [Mass/Vol] 0.26 mg/dL [facility] Work Phone: Comment on above: REF VALUE< 1.00 Complete Blood Count + Diffe rentialon 02-29-2020 Basophils (Bld) [#/Vol] 0.10 {x10E9/L} See Below [facility] Work Phone: Comment on above: Reference Range: 0.0 0 - 0.10 Basophils/100 WBC (Bld) 0.8 % 0.0 - 2.0 [facility] Work Phone: Eosinophils (Bld) [#/Vol] 0.80 {x10E9/L} above high threshold See Below [facility] Work Phone: Comment on above: Reference Range: 0.0 0 - 0.70 Eosinophils/100 WBC (Bld) 11.5 % 0.0 - 6.0 [facility] Work Phone: Erythrocyte distribution width (RBC) [Ratio] 15.0 % above high threshold See Below [facility] Work Phone: Comment on above: Reference Range: 11. 5 - 14.5 Hematocrit (Bld) [Volume fraction] 38.1 % See Below [facility] Work Phone: Comment on above: Reference Range: 36. 0 - 46.0 Hemoglobin (Bld) [Mass/Vol] 12.8 g/dL See Below [facility] Work Phone: Comment on above: Reference Range: 12. 0 - 16.0 Lymphocytes (Bld) [#/Vol] 1.70 {x10E9/L} See Below [facility] Work Phone: Comment on above: Reference Range: 1.2 0 - 4.80 Lymphocytes/100 WBC (Bld) 24.3 % See Below [facility] Work Phone: Comment on above: Reference Range: 13. 0 - 44.0 MCHC (RBC) [Mass/Vol] 33.5 g/dL See Below [facility] Work Phone: Comment on above: Reference Range: 32. 0 - 36.0 MCV (RBC) [Entitic vol] 88 fL 80 - 100 [facility] Work Phone: Monocytes (Bld) [#/Vol] 0.40 {x10E9/L} See Below [facility] Work Phone: Comment on above: Reference Range: 0.1 0 - 1.00 Monocytes/100 WBC (Bld) 6.3 % 2.0 - 10.0 [facility] Work Phone: Neutrophils (Bld) [#/Vol] 4.00 {x10E9/L} See Below [facility] Work Phone: Comment on above: Reference Range: 1.2 0 - 7.70 Percent differential counts (%) should be interpreted in the context of the absolute cell counts (cells/L). Neutrophils/100 WBC (Bld) 57.1 % See Below [facility] Work Phone: Comment on above: Reference Range: 40. 0 - 80.0 Platelets (Bld) [#/Vol] 356 {x10E9/L} 150 - 450 [facility] Work Phone: RBC (Bld) [#/Vol] 4.36 {x10E12/L} See Below [facility] Work Phone: Comment on above: Reference Range: 4.0 0 - 5.20 WBC (Bld) [#/Vol] 7.0 {x10E9/L} 4.4 - 11.[address] [facility] Work Phone: WBC (Bld) [#/Vol] 0.2 {/100_WBC} [facility] Work Phone: Ferritin, Serumon 02-29-2020 Ferritin [Mass/Vol] 21 ug/L 8 - [address] [facility] Work Phone: Metabolic Panelon 02-29-2020 ALP [Catalytic activity/Vol] 49 U/L 33 - 110 [facility] Work Phone: Anion gap [Moles/Vol] 11 mmol/L 10 - 20 [facility] Work Phone: Bilirubin [Mass/Vol] 0.3 mg/dL 0.0 - 1.2 [facility] Work Phone: Calcium [Mass/Vol] 9.4 mg/dL 8.6 - 10.3 [facility] Work Phone: Chloride [Moles/Vol] 104 mmol/L 98 - 107 [facility] Work Phone: CO2 [Moles/Vol] 24 mmol/L 21 - 32 [facility] Work Phone: Creatinine [Mass/Vol] 0.65 mg/dL See Below [facility] Work Phone: Comment on above: Reference Range: 0.5 0 - 1.05 Glucose [Mass/Vol] 102 mg/dL above high threshold 74 - 99 [facility] Work Phone: Potassium [Moles/Vol] 3.6 mmol/L 3.5 - 5.3 [facility] Work Phone: Protein [Mass/Vol] 7.7 g/dL 6.4 - 8.2 [facility] Work Phone: Sodium [Moles/Vol] 135 mmol/L below low threshold 136 - 145 [facility] Work Phone: Urea nitrogen [Mass/Vol] 12 mg/dL 6 - 23 [facility] Work Phone: Otheron 02-29-2020 Albumin BCP dye [Mass/Vol] 4.2 g/dL 3.4 - 5.0 [facility] Work Phone: ALT With P-5'-P [Catalytic activity/Vol] 15 U/L 7 - 45 [facility] Work Phone: Comment on above: Patients treated wit h Sulfasalazine may generate falsely decreased results for ALT. AST With P-5'-P [Catalytic activity/Vol] 22 U/L 9 - 39 [facility] Work Phone: >60 >60 [facility] Work Phone: Comment on above: CALCULATIONS OF MARLY MATED GFR ARE PERFORMED USING THE MDRD STUDY EQUATION FOR THE IDMS-TRACEABLE CREATININE METHODS. CLIN CHEM 2007;53:766-72 Vitamin B12, Serumon 020 Cobalamin (Vitamin B12) [Mass/Vol] 339 pg/mL 211 - 911 [facility] Work Phone: Vitamin-D 1,25-Dihydroxy, Le velon 02-29-2020 Calcitriol [Mass/Vol] 62.8 pg/mL 19.9-79.3 [facility] Work Phone: Comment on above: INTERPRETIVE INFORMA TION: Vitamin D, 1,25-DihydroxyThis test is primarily indicated during patient evaluation for hypercalcemia and renal failure. A normal result does not rule out Vitamin D deficiency. The recommended test for diagnosing Vitamin D deficiency is Vitamin D 25-hydroxy.Performed By: [facility] [place] [id number] Director: Garcia Farah MD, MS Established Visit (Gastroent erology)on 02-18-2020 Established Visit (Gastroenterology) Diagnoses/Problems Assessed Crohn's disease (555.9) (K50.90) Orders Crohn's disease C Reactive Protein, Serum; Specimen Source:Blood (BLD); Status:Active; Requested for:[id number]; Perform:Lab Services - Lab To Draw (Blood Test); Due:18May2020;Ordered; For:Crohn's disease; Ordered By:Brandon Roca; Complete Blood Count + Differential; Specimen Source:Blood (BLD); Status:Active; Requested for:71Zuh5355; Perform:Lab Services - Lab To Draw (Blood Test); Due:18May2020;Ordered; For:Crohn's disease; Ordered By:Brandon Roca; Comprehensive Metabolic Panel; Status:Active; Requested for:25Mru4094; Perform:Lab Services - Lab To Draw (Blood Test); Due:18May2020;Ordered; For:Crohn's disease; Ordered By:Brandon Roca; Ferritin, Serum; Specimen Source:Blood (BLD); Status:Active; Requested for:39Ndf7511; Perform:Lab Services - Lab To Draw (Blood Test); Due:18May2020;Ordered; For:Crohn's disease; Ordered By:Brandon Roca; Vitamin B12, Serum; Specimen Source:Blood (BLD); Status:Active; Requested for:68Asb4896; Perform:Lab Services - Lab To Draw (Blood Test); Due:18May2020;Ordered; For:Crohn's disease; Ordered By:Brandon Roca; Vitamin-D 1,25-Dihydroxy, Level; Specimen Source:Blood (BLD); Status:Active; Requested for:55Ykr1410; Perform:Lab Services - Lab To Draw (Blood Test); Due:97Nea6670;Ordered; For:Crohn's disease; Ordered By:Brandon Roca; Provider Impressions Continue to monitor off meds. Follow-up in 6 months with labs Chief Complaint 6 month follow up for crohn's disease. No current medications for this. States her stomach has really bothered her recently but is certain it is stress related as her anxiety is highly elevated. History of Present IllnessPatient seen today in follow-up for Crohn's ileitis. Most recent colonoscopy June 2019 showing mild ileitis. Currently receiving B12 injections every 3 weeks. Denies fatigue rash or change in bowel habits. She is currently on no medications. Denies any other complaints Review of Systems Constitutional: no fever, no chills, not feeling tired and no recent weight loss. ENT: no lymphadenopathy. Cardiovascular: no shortness of breath and no chest pain. Respiratory: no cough. Gastrointestinal: as noted in HPI. Musculoskeletal: no joint swelling. Integumentary: no rashes, no skin lesions and was no jaundiced. All other systems have been reviewed and are negative for complaint. 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) Right shoulder pain (719.41) (M25.511) Vitamin B12 deficiency (266.2) (E53.8) Surgical History Problems History of section History of Colonoscopy History of Esophagogastroduodenoscopy Family History Mother Family history of mitral valve disorder (V17.49) (Z82.49) Sister Family history of mitral valve disorder (V17.49) (Z82.49) Social History Problems Consumes alcohol occasionally (V49.89) (Z78.9) Never a smoker No illicit drug use No recent domestic travel No recent foreign travel Allergies Medication morphine Recorded By: Daisy Persaud; 07/16/2019 3:32:52 PM NonMedication Pollen Sneezing; Recorded By: Belgica Tucker; 11/02/2019 8:02:03 AM Ragweed Sneezing; Recorded By: Belgica Tucker; 11/02/2019 8:02:03 AM Current Meds Medication NameInstruction Cyanocobalamin 1000 MCG/ML Injection SolutionINJECT 1 ML INTRAMUSCULARLY ONCE A MONTH Levothyroxine Sodium 75 MCG Oral TabletTake 1 tablet daily Naproxen 500 MG Oral TabletTAKE 1 TABLET Twice daily. Take with food and 8 oz of water. Do not take ibuprofen, aleve or motrin with this. Vitals Vital Signs Recorded: 77Vrd2356 10:38AM Sugbcfqzoxn12.6 F Dxgxmeec775 Xmreujjpy25 Height5 ft 6 in Odygcw777 lb BMI Tdsqapwjnl36.12 BSA Calculated2 Physical Exam Constitutional General appearance: In no acute distress . Eyes Anicteric Sclerae . Pulmonary Auscultation of lungs: Clear. Cardiovascular Auscultation of heart: RRR without murmur. Examination of extremities for edema: Normal. Abdomen Soft, non-tender. Bowel sounds normal. No hepatomegaly or splenomegaly. Signatures Electronically signed by : Brandon Roca DO; Feb 18 2020 12:41PM EST (Author) Normal [facility] Telephone Note_[facility] 12-08-19 Telephone Note_ Message Recorded as Task Date: 12/07/2019 04:04 PM, Created By: Hanh Abrams Task Name: Miscellaneous Assigned To: Belgica Tucker Regarding Patient: JENNIFER MANNING, Status: Active Comment: Hanh Abrams - 07 Dec 2019 4:04 PM TASK CREATED Caller: Self; Other; Patient called in, she received a call over the weekend to schedule her for a MRI and CT scan. She received a letter in the mail stating CT was Denied, but MRI approved. Please call her and let her know what is going on. [facility] may have grabbed this and scheduled. CT was denied so Dr. Hernandez got a MRI approved. Thanks. Belgica Tucker - 08 Dec 2019 11:20 AM TASK EDITED 12/11/2019 1pm no prep Belgica Tucker - 08 Dec 2019 1:24 PM TASK EDITED Patient verbalized understanding. Signatures Electronically signed by : Belgica Tucker MA; Dec 08 2019 1:25PM EST (Author) Normal [facility] [place] CCD-CCDAon 12-03-2019 [facility] [place] CCD-CCDA conversion failed Normal [facility] BELLE - Automatic [employer] [facility] - [facility] [place], [place] JENNIFER MANNING Claudia 1980 Date of Female Sex [id number] Patient Id [address] [id number] AddressEnglish (preferred) Language White Race Not or Ethnicity Summary of Care Clinical Content Allergies and Adverse Reactions <#[id number]> Encounters <#EI1IMOAJ> Family History <#SN5VVXDY> Functional Status <#CT3BMYRD> Immunization <#NH1CAERU> Instructions <#FW5R5VDY> Medications <#XO8MMVTL> Plan of Care <#TT2TABZG> Problems <#HW2G6TBV> Procedures <#HN6TIKRC> Results <#EA2ZABKD> Social History <#MP0VGXMH> Vital Signs <#CU3U5EEJ> Other Document Details Health Care Providers Functional Statustop <#top> Functional Status Health Issues NameDatesDetails Functional status health issues are not documented Cognitive Status Health Issues NameDatesDetails Cognitive status health issues are not documented Problemstop <#top> NameDatesDetails Alopecia (704.00, L65.9) Asthma (493.90, J45.909) Inflammatory polyarthropathy (714.9, M06.4) Retinal drusen of right eye (362.57, H35.361) Crohn's disease (555.9, K50.90) Right shoulder pain (719.41, M25.511) Hypothyroidism (244.9, E03.9) Mass of right axilla (782.2, R22.31) Vitamin B12 deficiency (266.2, E53.8) Low ferritin level (790.6, R79.0) Elevated total protein (790.99, R77.8) Axillary lump (782.2, R22.30) Medicationstop <#top> NameDamitaEselaz Levothyroxine Sodium 75 MCG Oral Tablet Take 1 tablet daily Quantity: 90 Refills: 2 Ander Hernandezstantinos Start : 24-Aug-2019 Naproxen 500 MG Oral Tablet TAKE 1 TABLET Twice daily. Take with food and 8 oz of water. Do not take ibuprofen, aleve or motrin with this. Quantity: 28 Refills: 0 Sharitakari Lito Start : 02-Nov-2019 Allergies and Adverse Reactionstop <#top> NameDatesDetails morphine (Allergy) Pollen (Allergy)Reaction: Sneezing Ragweed (Allergy)Reaction: Sneezing Procedurestop <#top> ProcedureDatesDetails Vitamin B12, SerumDate: 02-Dec-2019 Ferritin, SerumDate: 02-Dec-2019 MRI Shoulder w/wo ContrastDate: 03-Dec-2019 History of sectionCompleted History of ColonoscopyCompleted History of Esophagogastroduodenoscopy Completed Immunizationtop <#top> NameDBella Immunizations not documented Family Historytop <#top> Mother NameDamitaPedro Family history of mitral valve disorder (V17.49, Z82.49) Sister NameDBella Family history of mitral valve disorder (V17.49, Z82.49) Social Historytop <#top> FarazamitaPedro - Smoking Status NameDBella Never smoked tobacco (finding) Vital Signstop <#top> DateTestResultDetails 02-Dec-2019 8:44Systolic blood qadppwte964 mm[Hg] Diastolic blood cftmredo14 mm[Hg] Body bwkpzi39 in Vfvqbp741.0 lb Body mass index (BMI) [Ratio]32.12 kg/m2 Body surface area Derived from formula2 m2 Heart Rate68 /min Resultstop <#top> DateDescriptionValueDetail s 17-Nov-2019 10:45Mamm - Digital Diagnostic Mammogram Bilateral w/ Tomosynthesis Mamm Bilateral Digital with TomosynthesisInterpreted by: RAJ BARRETT 11/28/19 13:34 Patient Name: JENNIFER MANNING STUDY: Digital diagnostic mammogram bilateral, right breast ultrasound; 11/17/2019 10:45 am; 11/17/2019 11:18 am ACCESSION NUMBER(S): [id number]; [id number] ORDERING CLINICIAN: LITO HERNANDEZ INDICATION: Right axillary mass. COMPARISON: Comparison is made to prior digital mammogram and ultrasound dated 07/20/2019 TECHNIQUE: Mammography: CC and MLO 2D digital mammograms and digital breast tomosynthesis images were obtained of the bilateral breasts. 3-D volume images were reconstructed in 4 views at an independent workstation as 1 mm slices through the breasts in both the CC and MLO projections. Ultrasound: Multiple grayscale ultrasonographic images were obtained through the right breast in the region of palpable abnormality. FINDINGS: Mammography: There are areas of scattered fibroglandular tissue. No discrete mass or focal asymmetry is identified. No suspicious microcalcifications or foci of architectural distortion are seen. There has been no significant change. This study was interpreted with CAD. Ultrasound: No discrete mass or ultrasonographic abnormality is seen in the region of palpable abnormality. IMPRESSION: No mammographic evidence of malignancy. BI-RADS CATEGORY: Category: 1 - Negative. Recommendation: 1 Year Screening. Negative or benign mammogram and ultrasound should not preclude further e [facility] Primary Care Visit (Text/For ms)on 12-02-2019 Primary Care Visit (Text/Forms) Diagnoses/Problems Assessed Vitamin B12 deficiency (266.2) (E53.8) Low ferritin level (790.6) (R79.0) Elevated total protein (790.99) (R77.8) Orders Low ferritin level Ferritin, Serum; Specimen Source:Blood (BLD); Status:Active; Requested for:21Ppa0112; Low ferritin level, Vitamin B12 deficiency Follow-up visit in 3 months Outpatient Follow-up Status: Complete Done: [id number] Vitamin B12 deficiency Administered: Cyanocobalamin 1000 MCG/ML Injection Solution Vitamin B12, Serum; Specimen Source:Blood (BLD); Status:Active; Requested for:44Vaz6372; Provider Impressions Provider Impressions Free Text Note Form: B12 inj was given to pt today - will change frequency to every 3 weeks 2 Flintstones vitamins w/ iron daily Referral was already placed to [facility] Counseled pt on warning signs of when to present back to clinic earlier and/or ER Instructed pt to make a f/u appt in 3 mos Labs prior next appt Chief Complaint Here to go over recent labs History of Present Illness Reviewed recent labs w/ pt Here total protein level is still slightly elevated - referral was placed to [facility] (per pt's request) Her B12 level is still low - getting B12 1000 mcg injection every month - will increase frequency to every 3 weeks Ferritin low - pt states she chews a lot of ice Her hgb is wnl Pt denies any gross bleeding She had a colonoscopy in Jun 2019 - biopsy showed some patchy chronic ileitis - pt has Crohn's disease Review of Systems Constitutional: no fever and no chills. Cardiovascular: no chest pain and no shortness of breath. Respiratory: no cough. Gastrointestinal: no nausea and no vomiting. 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) Right shoulder pain (719.41) (M25.511) Vitamin B12 deficiency (266.2) (E53.8) Surgical History Problems History of section History of Colonoscopy History of Esophagogastroduodenoscopy Family History Mother Family history of mitral valve disorder (V17.49) (Z82.49) Sister Family history of mitral valve disorder (V17.49) (Z82.49) Social History Problems Consumes alcohol occasionally (V49.89) (Z78.9) Never a smoker No illicit drug use No recent domestic travel No recent foreign travel Current Meds Medication NameInstruction Levothyroxine Sodium 75 MCG Oral TabletTake 1 tablet daily Naproxen 500 MG Oral TabletTAKE 1 TABLET Twice daily. Take with food and 8 oz of water. Do not take ibuprofen, aleve or motrin with this. Allergies Medication morphine NonMedication Pollen Ragweed Vitals Vital Signs Recorded: 02Dec2019 08:44AM Heart Rate: 68 Systolic: 118 Diastolic: 78 Height: 5 ft 6 in Weight: 199 lb BMI Calculated: 32.12 BSA Calculated: 2 Physical Exam Constitutional - Well developed, well nourished, well hydrated and no acute distress. Vital signs reviewed. Neurologic - Alert. Psychiatric - Cooperative. Time Time Spent With Patient: 15 minutes of which greater than 50 percent was spent counseling and or coordinating care. Signatures Electronically signed by : Lito Hernandez, ; Dec 02 2019 9:20AM EST (Author) Normal [facility] Automatic [place] CCD-CCDAon 12-01-2019 Automatic [place] CCD-CCDA conversion failed Normal [facility] Metabolic Panelon 11-28-2019 ALP [Catalytic activity/Vol] 45 U/L 33 - 110 [facility] Work Phone: Anion gap [Moles/Vol] 10 mmol/L 10 - 20 [facility] Work Phone: Bilirubin [Mass/Vol] 0.4 mg/dL 0.0 - 1.2 [facility] Work Phone: Calcium [Mass/Vol] 9.3 mg/dL 8.6 - 10.3 [facility] Work Phone: Chloride [Moles/Vol] 105 mmol/L 98 - 107 [facility] Work Phone: CO2 [Moles/Vol] 26 mmol/L 21 - 32 [facility] Work Phone: Creatinine [Mass/Vol] 0.55 mg/dL See Below [facility] Work Phone: Comment on above: Reference Range: 0.5 0 - 1.05 Glucose [Mass/Vol] 86 mg/dL 74 - 99 [facility] Work Phone: Potassium [Moles/Vol] 4.0 mmol/L 3.5 - 5.3 [facility] Work Phone: Protein [Mass/Vol] 8.3 g/dL above high threshold 6.4 - 8.2 [facility] Work Phone: Sodium [Moles/Vol] 137 mmol/L 136 - 145 [facility] Work Phone: Urea nitrogen [Mass/Vol] 10 mg/dL 6 - 23 [facility] Work Phone: Otheron 11-28-2019 Albumin BCP dye [Mass/Vol] 4.1 g/dL 3.4 - 5.0 [facility] Work Phone: ALT With P-5'-P [Catalytic activity/Vol] 9 U/L 7 - 45 [facility] Work Phone: Comment on above: Patients treated wit h Sulfasalazine may generate falsely decreased results for ALT. AST With P-5'-P [Catalytic activity/Vol] 13 U/L 9 - 39 [facility] Work Phone: >60 >60 [facility] Work Phone: Comment on above: CALCULATIONS OF MARLY MATED GFR ARE PERFORMED USING THE MDRD STUDY EQUATION FOR THE IDMS-TRACEABLE CREATININE METHODS. CLIN CHEM 2007;53:766-72 Other11-23-2019 Please click on the link to view the study images Normal [facility] Work Phone: Otheron 11-17-2019 MG Breast screening Interpreted by: RAJ BARRETT11/28/19 13:34MRN: [id number] Name: JENNIFER MANNING STUDY:Digital diagnostic mammogram bilateral, right breast ultrasound;11/17/2019 10:45 am; 11/17/2019 11:18 am [id number] ORDERING CLINICIAN:LITO HERNANDEZ INDICATION:Right axillary mass. COMPARISON:Comparison is made to prior digital mammogram and ultrasound date07/20/2019 TECHNIQUE:Mammography:CC and MLO 2D digital mammograms and digital breast tomosynthesisimages were obtained of the bilateral breasts. 3-D volume images werereconstructed in 4 views at an independent workstation as 1 mm slicesthrough the breasts in both the CC and MLO projections. Ultrasound:Multiple grayscale ultrasonographic images were obtained through theright breast in the region of palpable abnormality. FINDINGS:Mammography:There are areas of scattered fibroglandular tissue. No discrete massor focal asymmetry is identified. No suspicious microcalcificationsor foci of architectural distortion are seen. There has been nosignificant change. This study was interpreted with CAD. Ultrasound:No discrete mass or ultrasonographic abnormality is seen in theregion of palpable abnormality. IMPRESSION:No mammographic evidence of malignancy. BI-RADS CATEGORY:Category: 1 - Negative.Recommendation: 1 Year Screening. Negative or benign mammogram and ultrasound should not precludefurther evaluation of a suspicious clinical abnormality.Electronically signed by: RAJ BARRETT 11/28/19 13:34 Normal [facility] Work Phone: MG Breast screening Please click on the link to view the study images Normal [facility] Work Phone: MG Breast diagnostic Interpreted by: RAJ BARRETT11/28/19 13:34MRN: [id number] Name: JENNIFER MANNING STUDY:Digital diagnostic mammogram bilateral, right breast ultrasound;11/17/2019 10:45 am; 11/17/2019 11:18 am [id number] ORDERING CLINICIAN:LITO HERNANDEZ INDICATION:Right axillary mass. COMPARISON:Comparison is made to prior digital mammogram and ultrasound date07/20/2019 TECHNIQUE:Mammography:CC and MLO 2D digital mammograms and digital breast tomosynthesisimages were obtained of the bilateral breasts. 3-D volume images werereconstructed in 4 views at an independent workstation as 1 mm slicesthrough the breasts in both the CC and MLO projections. Ultrasound:Multiple grayscale ultrasonographic images were obtained through theright breast in the region of palpable abnormality. FINDINGS:Mammography:There are areas of scattered fibroglandular tissue. No discrete massor focal asymmetry is identified. No suspicious microcalcificationsor foci of architectural distortion are seen. There has been nosignificant change. This study was interpreted with CAD. Ultrasound:No discrete mass or ultrasonographic abnormality is seen in theregion of palpable abnormality. IMPRESSION:No mammographic evidence of malignancy. BI-RADS CATEGORY:Category: 1 - Negative.Recommendation: 1 Year Screening. Negative or benign mammogram and ultrasound should not precludefurther evaluation of a suspicious clinical abnormality.Electronically signed by: RAJ BARRETT 11/28/19 13:34 Normal [facility] Work Phone: Otheron 11-02-2019 XR Shoulder 2 views Interpreted by: RAJ BARRETT11/02/19 09:28MRN: [id number] Name: JENNIFER MANNING STUDY:SHOULDER, CMPLT, MIN 2 VIEWS; 11/02/2019 9:25 am INDICATION:right shoulder pain and tenderness in right axilla. COMPARISON:None. ORDERING CLINICIAN:LITO HERNANDEZ TECHNIQUE:5 views of the right shoulder including AP, AP internal rotation ,Grashey, axillary and scapular Y-views were obtained. FINDINGS:There is no radiographic evidence of acute fracture or dislocationidentified. The joint spaces are well preserved without significantdegenerative changes. IMPRESSION:1. No evidence of acute fracture or dislocation.Electronically signed by: RAJ BARRETT 11/02/19 09:28 Normal [facility] Work Phone: Primary Care Visit (Text/For ms)on 11-02-2019 Primary Care Visit (Text/Forms) Diagnoses/Problems Assessed Right shoulder pain (719.41) (M25.511) Mass of right axilla (782.2) (R22.31) Elevated total protein (790.99) (R77.8) Hypothyroidism (244.9) (E03.9) Vitamin B12 deficiency (266.2) (E53.8)1 1 Amended By: Lito Hernandez; Nov 02 2019 12:50 PM ESTOrders Elevated total protein Comprehensive Metabolic Panel; Status:Active; Requested for:02Nov2019; Hypothyroidism Renew: Levothyroxine Sodium 75 MCG Oral Tablet; Take 1 tablet daily Mass of right axilla, Right shoulder pain Start: Naproxen 500 MG Oral Tablet; TAKE 1 TABLET Twice daily. Take with food and 8 oz of water. Do not take ibuprofen, aleve or motrin with this Follow-up visit in 1 month Outpatient Follow-up Status: Complete Done: 02Nov2019 Xray Shoulder Complete Min 2 Views; Status:Resulted - Requires Verification; Done: 02Nov2019 09:25AM Laterality : Right Radiologist to Determine Optimal Study : Y What are the patient's signs and symptoms? : right shoulder pain and tenderness in right axilla Provider Impressions Provider Impressions Free Text Note Form: B12 inj was given to pt today by LAMONT Alvares Remaining plan 1 as per orders Counseled pt on possible adverse rxns associated w/ new med - pt ok w/ risks Counseled pt on warning signs of when to present back to clinic earlier and/or ER 1 Amended By: Lito Hernandez; Nov 02 2019 12:50 PM ESTChief Complaint R shoulder pain History of Present Illness R shoulder pain since Jun 2019 Not getting worse However, not getting better Associated w/ a lump in R axilla - it has not grown - not tender - had US of R breast and axilla back on 07/20/2019 - wnl Achy pain Pain intermittent Not sure what triggers the pain Tyl not helping Hypothyroidism Controlled Recent TSH 2.160 (10/27/2019) B12 def Gets monthly B12 inj - helping her energy level 1 Recent total protein level slightly elevated - 8.8 - prior was 7.7 (Aug 2019) 1 Amended By: Lito Hernandez; Nov 02 2019 12:49 PM ESTReview of Systems Constitutional: no fever and no chills. Cardiovascular: no chest pain and no shortness of breath. Gastrointestinal: no nausea and no vomiting. 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) Vitamin B12 deficiency (266.2) (E53.8) Surgical History Problems History of section History of Colonoscopy History of Esophagogastroduodenoscopy Family History Mother Family history of mitral valve disorder (V17.49) (Z82.49) Sister Family history of mitral valve disorder (V17.49) (Z82.49) Social History Problems Consumes alcohol occasionally (V49.89) (Z78.9) Never a smoker No illicit drug use No recent domestic travel No recent foreign travel Current Meds Medication NameInstruction Levothyroxine Sodium 75 MCG Oral TabletTake 1 tablet daily Allergies Medication morphine NonMedication Pollen Ragweed Vitals Vital Signs Recorded: 02Nov2019 08:02AM Heart Rate: 72 Systolic: 118 Diastolic: 70 Height: 5 ft 6 in Weight: 194 lb 6.4 oz BMI Calculated: 31.38 BSA Calculated: 1.98 Physical Exam Constitutional - Well developed, well nourished, well hydrated and no acute distress. Vital signs reviewed. Chest - No R axillary swelling or erythema. I am unable to palpate a mass in R axilla. No R axillary tenderness. Musculoskeletal - Shoulder. Laterality: Right shoulder. Appearance: Normal. Tenderness: trapezius muscle.ROM: Full. Special Tests: negative Empty Can test. Neurologic - Alert. Psychiatric - Mood and affect: Normal. Time Time Spent With Patient: 25 minutes of which greater than 50 percent was spent counseling and or coordinating care. Signatures Electronically signed by : Lito Hernandez, ; Nov 02 2019 12:49PM EST (Author) Electronically signed by : Lito Hernandez, ; Nov 02 2019 12:53PM EST (Author) Normal [facility] Primary Care Visit (Text/For ms)on 08-31-2019 Primary Care Visit (Text/Forms) Diagnoses/Problems Assessed Hypothyroidism (244.9) (E03.9) Crohn's disease (555.9) (K50.90) Vitamin B12 deficiency (266.2) (E53.8) Orders Hypothyroidism Start: Levothyroxine Sodium 75 MCG Oral Tablet; Take 1 tablet daily Comprehensive Metabolic Panel; Status:Active; Requested for:24Aug2019; Follow-Up, Recheck Outpatient Follow-up mid Oct 2019 for med check - 40 min Status: Complete Done: 24Aug2019 T3 - Free Triiodothyronine, Serum; Specimen Source:Blood (BLD); Status:Active; Requested for:24Aug2019; T4 - Free Thyroxine, Serum; Specimen Source:Blood (BLD); Status:Active; Requested for:24Aug2019; TSH - Thyroid Stimulating Hormone, Serum; Specimen Source:Blood (BLD); Status:Active; Requested for:24Aug2019; Provider Impressions Provider Impressions Free Text Note Form: Will increase synthroid dose to 75 mcg daily Labs in 6-8 weeks as per orders Counseled pt on warning signs of when to present back to clinic earlier and/or ER Chief Complaint Here to go over chronic medical problems History of Present Illness Hypothyroidism Currently on synthroid 50 mcg daily Pt feels tired - she would like her synthroid dose increased Her last TSH was on the higher side of nl - 3.64 B12 def Currently getting monthly B12 inj Has Crohn's - following w/ Dr Roca Review of Systems Constitutional: no fever and no chills. Cardiovascular: no chest pain and no shortness of breath. Gastrointestinal: no nausea and no vomiting. 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) Vitamin B12 deficiency (266.2) (E53.8) Surgical History Problems History of section History of Colonoscopy History of Esophagogastroduodenoscopy Family History Mother Family history of mitral valve disorder (V17.49) (Z82.49) Sister Family history of mitral valve disorder (V17.49) (Z82.49) Social History Problems Consumes alcohol occasionally (V49.89) (Z78.9) Never a smoker No illicit drug use Allergies Medication morphine Vitals Vital Signs Recorded: 24Aug2019 03:44PM Heart Rate: 68 Systolic: 118 Diastolic: 60 Height: 5 ft 6 in Weight: 195 lb BMI Calculated: 31.47 BSA Calculated: 1.98 Physical Exam Constitutional - Well developed, well nourished, well hydrated and no acute distress. Vital signs reviewed. Head and Face - Normocephalic, atraumatic. Eyes - No redness, edema or visible abnormality of conjunctiva or lids. Ears, Nose, Mouth, and Throat - Pharyngeal mucosa normal. No erythema, exudate, or lesions. Mucous membranes moist. Pulmonary - No grunting, flaring or retractions. No rales or wheezing. Good air exchange. Cardiovascular - Regular rate and rhythm. No significant murmur. Abdomen - Soft, non-tender, no masses. normal active bowel sounds. Musculoskeletal - Gait and station: Normal. No decrease in range of motion. Muscle strength and tone are normal. Neurologic - Cranial nerves 2-12 grossly intact. no speech abnormalities. facial movement is symmetric. limb movement is symmetrical. Alert. Psychiatric - Mood and affect: Normal. Lymphatic - No cervical lymphadenopathy. Palpation of lymph nodes in axillae: Normal. Normal [facility] Established Visit (Gastroent erology)on 08-20-2019 Established Visit (Gastroenterology) Diagnoses/Problems Assessed Crohn's disease (555.9) (K50.90) Orders Crohn's disease Start: Azithromycin 250 MG Oral Tablet; TAKE DIRECTED Rx By: Brandon Roca; Dispense: 0 Days ; #: Sufficient Tablet; Refill: 0;For: Crohn's disease; NATA = N; Sent To: [facility] 1448 C Reactive Protein, Serum; Specimen Source:Blood (BLD); Status:Active; Requested for:20Aug2019; Perform:Lab Services - Lab To Draw (Blood Test); Due:18Nov2019;Ordered; For:Crohn's disease; Ordered By:Brandon Roca; Complete Blood Count; Specimen Source:Blood (BLD); Status:Active; Requested for:20Aug2019; Perform:Lab Services - Lab To Draw (Blood Test); Due:18Nov2019;Ordered; For:Crohn's disease; Ordered By:Brandon Roca; Ferritin, Serum; Specimen Source:Blood (BLD); Status:Active; Requested for:20Aug2019; Perform:Lab Services - Lab To Draw (Blood Test); Due:18Nov2019;Ordered; For:Crohn's disease; Ordered By:Brandon Roca; Vitamin B12, Serum; Specimen Source:Blood (BLD); Status:Active; Requested for:20Aug2019; Perform:Lab Services - Lab To Draw (Blood Test); Due:18Nov2019;Ordered; For:Crohn's disease; Ordered By:Brandon Roca; Vitamin-D 1,25-Dihydroxy, Level; Specimen Source:Blood (BLD); Status:Active; Requested for:20Aug2019; Perform:Lab Services - Lab To Draw (Blood Test); Due:18Nov2019;Ordered; For:Crohn's disease; Ordered By:Brandon Roca; Provider Impressions Continue B12 1000 g every 4 weeks. Follow-up labs in 3 months to include B12 levels vitamin D and iron levels. Given prescription for Zithromax 250 mg 1 to be taken for 5 days for traveler's diarrhea while traveling to [place]. Chief Complaint Follow up to discuss scope results and treatment options. History of Present Illness Suraj is seen today in follow-up. Colonoscopy revealed mild active ileitis. Lab work showed mild B12 deficiency feels better since beginning B12 infusions. Denies any complaints this time no abdominal pain. Does not wish to begin in the therapy for Crohn's disease at this time. 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) Vitamin B12 deficiency (266.2) (E53.8) Surgical History Problems History of section History of Colonoscopy History of Esophagogastroduodenoscopy Family History Mother Family history of mitral valve disorder (V17.49) (Z82.49) Sister Family history of mitral valve disorder (V17.49) (Z82.49) Social History Problems Consumes alcohol occasionally (V49.89) (Z78.9) Never a smoker No illicit drug use Allergies Medication morphine Recorded By: Daisy Persaud; 07/16/2019 3:32:52 PM Vitals Vital Signs Recorded: 20Aug2019 04:07PM [id number] Suoafvzkv36 Height5 ft 6 in Lmwkpn317 lb BMI Tzuzanfwyf87.08 BSA Calculated1.89 Physical Exam Constitutional General appearance: In no acute distress . Eyes Anicteric Sclerae . Pulmonary Auscultation of lungs: Clear. Cardiovascular Auscultation of heart: RRR without murmur. Examination of extremities for edema: Normal. Abdomen Soft, non-tender. Bowel sounds normal. No hepatomegaly or splenomegaly. Signatures Electronically signed by : Brandon Roca DO; Aug 20 2019 4:28PM EST (Author) Normal [facility] Established Visit (Gastroent erology)on 07-16-2019 Established Visit (Gastroenterology) Diagnoses/Problems Assessed Crohn's disease (555.9) (K50.90) Orders Crohn's disease Colonoscopy; Status:Hold For - Scheduling; Requested for:[id number]; Perform:[facility]; Due:14Oct2019;Ordered; Stat; For:Crohn's disease; Ordered By:Brandon Roca; Patient competent to provide consent? : Yes-pt mentally competent to provide consent Provider Impressions Recommend we repeat colonoscopy. Check routine labs including inflammatory markers B-12, folate level and thyroid studies given her low thyroid function and follow up after colonoscopy. Chief Complaint 2 year follow up for crohn's diease. No medications for this. Follows glueton free diet. Pt is feeling abdominal soreness and discomfort. Last colonoscopy was over 10 years ago. History of Present Illness Jennifer seen today in routine follow-up. Diagnosed with Crohn's disease approximately 13 years go through colonoscopy. 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 She's been in remission off medications approximately 2 years. Presents with stuttering abdominal pain had episodic constipation with cleared with change in diet. She is having no joint aches but feels achy and tired all over. No rash or extraintestinal manifestations of IBD. Denies any fevers chills or night sweats. 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 Eyes Anicteric Sclerae . Pulmonary Auscultation of lungs: Clear. Cardiovascular Auscultation of heart: RRR without murmur. Examination of extremities for edema: Normal. Abdomen Soft, non-tender. Bowel sounds normal. No hepatomegaly or splenomegaly. Signatures Electronically signed by : Brandon Roca DO; Jul 16 2019 4:07PM EST (Author) Normal [facility] Auto Diffon 11-11-2018 Basophils #/vol (Bld) 0.1 E3/mcL Normal 0.0-0.2 [facility] Comment on above: Order Comment: Order Added by Discern Expert. Performed By: #### 2 [id number] #### RONNIE RemHemo [facility] [place] [address] Basophils/100 WBC (Bld) 0.8 % Normal 0.0-2.0 [facility] Comment on above: Order Comment: Order Added by Discern Expert. Performed By: #### 2 [id number] #### RONNIE RemHemo [address] [place] [address] Eos Absolute 0.7 E3/mcL Normal 0.0-0.7 [facility] Comment on above: Order Comment: Order Added by Discern Expert. Performed By: #### 2 [id number] #### RONNIE RemHemo [address] [place] [address] Eosinophils/100 WBC (Bld) 10.5 % Normal 0.0-11.0 [facility] Comment on above: Order Comment: Order Added by Discern Expert. Performed By: #### 2 [id number] #### RONNIE RemHemo [address] [place] [address] Lymphocytes #/vol (Bld) 1.7 E3/mcL Normal 1.2-3.4 [facility] Comment on above: Order Comment: Order Added by Discern Expert. Performed By: #### 2 [id number] #### RONNIE RemHemo [address] [place] [address] Lymphocytes/100 WBC (Bld) 27.4 % Normal 20.0-55.0 [facility] Comment on above: Order Comment: Order Added by Discern Expert. Performed By: #### 2 [id number] #### RONNIE RemHemo [address] [place] [address] [place] Absolute 0.4 E3/mcL Normal 0.0-0.7 [facility] Comment on above: Order Comment: Order Added by Discern Expert. Performed By: #### 2 [id number] #### RONNIE RemHemo [address] [place] [address] Monocytes/100 WBC (Bld) 6.5 % Normal 0.0-10.0 [facility] Comment on above: Order Comment: Order Added by Discern Expert. Performed By: #### 2 [id number] #### RONNIE RemHemo [address] [place] [address] Neutro Absolute 3.5 E3/mcL Normal 1.4-6.5 [facility] Comment on above: Order Comment: Order Added by Discern Expert. Performed By: #### 2 [id number] #### RONNIE RemHemo [address] [place] [address] Neutro Auto 54.8 % Normal 37.0-75.0 [facility] Comment on above: Order Comment: Order Added by Discern Expert. Performed By: #### 2 [id number] #### RONNIE RemHemo [address] [place] [address] CBC w/ Auto Diffon 9 Erythrocyte distribution width Ratio (RBC) 13.4 % Normal 11.5-14.5 [facility] Comment on above: Performed By: #### 2 [id number] #### RONNIE RemHemo [address] [place] [address] Hematocrit Volume Fraction (Bld) 39.3 % Normal 36.0-48.0 [facility] Comment on above: Performed By: #### 2 [id number] #### RONNIE RemHemo [address] [place] [address] Hemoglobin mass conc (Bld) 13.4 g/dL Normal 12.0-16.0 [facility] Comment on above: Performed By: #### 2 [id number] #### RONNIE RemHemo [address] [place] [address] MCH Entitic mass (RBC) 29.8 pg Normal 27.0-31.0 [facility] Comment on above: Performed By: #### 2 [id number] #### RONNIE RemHemo [address] [place] [address] MCHC mass conc (RBC) 34.1 g/dL Normal 33.0-37.0 [facility] Comment on above: Performed By: #### 2 [id number] #### RONNIE RemHemo [address] [place] [address] MCV Entitic volume (RBC) 87.5 fL Normal 78.0-100.0 [facility] Comment on above: Performed By: #### 2 [id number] #### RONNIE RemHemo [address] [place] [address] Platelet mean volume Entitic volume (Bld) 7.0 fL Low 7.4-11.0 [facility] Comment on above: Performed By: #### 2 [id number] #### RONNIE RemHemo [address] [place] [address] Platelets #/vol (Bld) 338 E3/mcL Normal 130-400 [facility] [facility] Comment on above: Performed By: #### 2 [id number] #### RONNIE RemHemo [address] [place] [address] RBC #/vol (Bld) 4.49 E6/mcL Normal 3.90-5.40 [facility] Comment on above: Performed By: #### 2 [id number] #### RONNIE RemHemo [address] [place] [address] WBC #/vol (Bld) 6.3 E3/mcL Normal 3.6-11.0 [facility] Comment on above: Performed By: #### 2 [id number] #### RONNIE MinorHemo [address] [place] [address] CMPon 11-11-2018 Albumin mass conc 4.1 g/dL Normal 3.4-5.0 [facility] Comment on above: Performed By: #### 2 [id number] #### RONNIE MinorChem [address] [place] [address] Albumin/Globulin mass ratio 1.2 {ratio} Normal 1.1-1.9 [facility] Comment on above: Performed By: #### 2 [id number] #### RONNIE [employer] [address] [place] [address] Alk Phos 51 Int._Unit/L Normal 33-110 [facility] Comment on above: Performed By: #### 2 [id number] #### RONNIE Minor[employer] [address] [place] [address] ALT enzyme act/vol 11 Int._Unit/L Normal 7-45 [facility] Comment on above: Performed By: #### 2 [id number] #### RONNIE [employer] [address] [place] [address] Anion gap molar conc 8 mmol/L Low 10-20 [facility] Comment on above: Performed By: #### 2 [id number] #### RONNIE [employer] [address] [place] [address] AST enzyme act/vol 14 Int._Unit/L Normal 9-39 [facility] Comment on above: Performed By: #### 2 [id number] #### RONNIE RemChem [address] [place] [address] Bili Total 0.60 mg/dL Normal 0.00-1.20 [facility] Comment on above: Performed By: #### 2 [id number] #### RONNIE Rem[employer] [address] [place] [address] Calcium mass conc 9.2 mg/dL Normal 8.6-10.3 [facility] Comment on above: Performed By: #### 2 [id number] #### RONNIE [employer] [address] [place] [address] Chloride molar conc 105 mmol/L Normal 98-107 [facility] Comment on above: Performed By: #### 2 [id number] #### RONNIE [employer] [address] [place] [address] CO2 molar conc 28.0 mmol/L Normal 21.0-32.0 [facility] Comment on above: Performed By: #### 2 [id number] #### RONNIE [employer] [address] [place] [address] Creatinine mass conc 0.6 mg/dL Normal 0.5-1.1 [facility] Comment on above: Performed By: #### 2 [id number] #### RONNIE [employer] [address] [place] [address] Globulin mass conc (S) 3.0 g/dL Normal 2.0-4.0 [facility] Comment on above: Performed By: #### 2 [id number] #### RONNIE [employer] [address] [place] [address] Glucose mass conc 86 mg/dL Normal 70-99 [facility] Comment on above: Performed By: #### 2 [id number] #### RONNIE [employer] [address] [place] [address] Potassium molar conc 3.9 mmol/L Normal 3.5-5.3 [facility] Comment on above: Performed By: #### 2 [id number] #### RONNIE [employer] [address] [place] [address] Protein mass conc 7.4 g/dL Normal 6.4-8.2 [facility] Comment on above: Performed By: #### 2 [id number] #### RONNIE [employer] [address] [place] [address] Sodium molar conc 137 mmol/L Normal 136-145 [facility] Comment on above: Performed By: #### 2 [id number] #### RONNIE [employer] [address] [place] [address] Urea nitrogen mass conc 8 mg/dL Normal 6-23 [facility] Comment on above: Performed By: #### 2 [id number] #### RONNIE [employer] [address] [place] [address] Urea nitrogen/Creatinine mass ratio 13.3 ratio Normal 5.4-30.0 [facility] Comment on above: Performed By: #### 2 [id number] #### RONNIE [employer] [address] [place] [address] Free T3on 11-11-2018 T3 free mass conc 4.0 pg/mL High 2.5-3.9 [facility] Comment on above: Performed By: #### 2 [id number] #### RONNIE [employer] [address] [place] [address] Free T4on 11-11-2018 T4 free mass conc 0.65 ng/dL Normal 0.58-1.64 [facility] Comment on above: Result Comment: Angella ents receiving more than 5mg/day of biotin may have interference in test results. A sample should be taken no sooner than eight hours after previous dose. Performed By: #### 2 [id number] #### RONNIE [employer] [address] [place] [address] Lipid Profileon 11-11-2018 Cholesterol in HDL mass conc 56 mg/dL Normal 40-60 [facility] Comment on above: Performed By: #### 3 [id number] #### RONNIE [employer] [address] [place] [address] Cholesterol in LDL mass conc 90 mg/dL Normal 0-130 [facility] Comment on above: Performed By: #### 3 [id number] #### RONNIE [employer] [address] [place] [address] Cholesterol in VLDL mass conc 15 mg/dL Normal 0-40 [facility] Comment on above: Performed By: #### 3 [id number] #### RONNIE [employer] [address] [place] [address] Cholesterol mass conc 161 mg/dL Normal 0-199 [facility] Comment on above: Performed By: #### 3 [id number] #### RONNIE [employer] [address] [place] [address] Triglyceride mass conc 75 mg/dL Normal 0-149 [facility] Comment on above: Result Comment: AGE DESIRABLE BORDERLINE HIGH 91 D - 9 Y 0 - 74 75 - 99 > 100 10 - 19 Y 0 - 89 90 - 129 > 130 20 - 24 Y 0 - 114 115 - 149 > 150 > 25 0 - 149 150 - 199 200 - 499 Performed By: #### 3 [id number] #### RONNIE [employer] [address] [place] [address] TSHon 11-11-2018 Thyrotropin Qn 3.64 mcIU/mL Normal 0.30-5.60 [facility] Comment on above: Performed By: #### 2 [id number] #### RONNIE [employer] [address] [place] [address] eGFRon 11-11-2018 GFR/1.73 sq M predicted among non-blacks MDRD vol rate/area (S/P/Bld) mL/min/{1.73_m2} Normal [facility] Comment on above: Order Comment: Order added by Discern Expert. Performed By: #### 1 [id number] #### RONNIE [employer] [address] [place] [address] Cardiolipin Antibodyon 02-21 Cardiolipin Antibody SEE BELOW Normal [facility] Comment on above: Result Comment: IgG Cardiolipin Ab. <9 0-9 GPL<10 GPL [id number] GPL Equivocal>40 GPL PositiveThe following results were obtained with the [employer] QUANTA Lite LORENA IgGIII FATUMA. Cardiolipin IgG values obtained with the differentmanufacturers' assay methods may not be used interchangeably. The magnitude of the reportedIgG levels cannot be correlated to an endpoint titer.IgM Cardiolipin Ab. 15 H 0-11 MPL<12 MPL Hlixgqmg44-52 MPL Equivocal>40 MPL PositiveThe following results were obtained with the [employer] QUANTA Lite LORENA IgMIII FATUMA. Cardiolipin IgM values obtained with different manufacturers'assay methods may not be used interchangeably. The magnitude of the reportedIgM levels cannot be correlated to an endpoint titer.IgA Cardiolipin Ab. <9 0-11 APL<12 APL Wrcoygly88-43 APL Equivocal>40 APL PositiveThe following results were obtained with an [employer] QUANTA Lite LORENA IgAIII FATUMA. Cardiolipin IgA values obtained with different manufacturers' assaymethods may not be used interchangeably. The magnitude of the reported IgA levelscannot be correclated to an endpoint titer.Performing Laboratory:[facility] [address] [place] [address] Performed By: #### C ARDX ####[place] [address] Hypercoag Panelon 02-21-2017 Plasminogen Activity SEE BELOW Normal [facility] Comment on above: Result Comment: Plas minogen Func 89 69-137 %Performing Laboratory:[place] [address] Performed By: #### H YPCX ####[address] [address] Protein C Activity SEE BELOW Normal [facility] Comment on above: Result Comment: Prot ein C Functional 97 76-147 %Performing Laboratory:[place] [address] Performed By: #### H YPCX ####[address] [address] Protein C Antigen SEE BELOW Normal [facility] Comment on above: Result Comment: Prot C Immunologic 102 73-126 %The protein C antigen level was normal. As this is an antigenic test, a functional protein C deficiency cannot be excluded. Suggest orderingprotein C functional assay to exclude a functional protein C deficiency.Performing Laboratory:[place] [address] Performed By: #### H YPCX ####[address] [address] Protein S Antigen SEE BELOW Normal [facility] Comment on above: Result Comment: Tota l Protein S 85 74-156 %Free Protein S 102 55-148 %Performing Laboratory:[place] [address] Performed By: #### H YPCX ####[address] [address] Hemogram/Diffon 02-18-2017 Basophils Auto #/vol (Bld) 0.05 thou/cmm Normal 0.01-0.08 [facility] Comment on above: Performed By: #### C BCD1 ####[address] [address] Basophils/100 WBC Auto (Bld) 1.1 % Normal [facility] Comment on above: Performed By: #### C BCD1 ####[address] [address] Eosinophils 0.53 thou/cmm High 0.00-0.31 [facility] Comment on above: Performed By: #### C BCD1 ####[address] [address] Eosinophils/100 leukocytes 11.7 % Normal [facility] Comment on above: Performed By: #### C BCD1 ####[place] [address] Erythrocyte distribution width Auto Ratio (RBC) 12.5 % Normal 11.7-14.4 [facility] Comment on above: Performed By: #### C BCD1 ####[address] [address] Erythrocytes (RBC) 4.31 mil/cmm Normal 3.93-5.22 [facility] Comment on above: Performed By: #### C BCD1 ####[place] [address] Hematocrit (HCT) 38.9 % Normal 34.1-44.9 [facility] Comment on above: Performed By: #### C BCD1 ####[address] [address] Hemoglobin mass conc (Bld) 13.4 g/dL Normal 11.2-15.7 [facility] Comment on above: Performed By: #### C BCD1 ####[address] [address] Immature Grans 0.20 % Normal [facility] Comment on above: Performed By: #### C BCD1 ####[address] [address] Immature Grans # 0.01 thou/cmm Normal 0.00-0.05 [facility] Comment on above: Performed By: #### C BCD1 ####[place] [address] Lymphocytes 1.28 thou/cmm Normal 1.18-3.74 [facility] Comment on above: Performed By: #### C BCD1 ####[address] [address] Lymphocytes/100 leukocytes 28.3 % Normal [facility] Comment on above: Performed By: #### C BCD1 ####[facility] [place], [place] [address] MCH 31.1 pg Normal 25.6-32.2 [facility] Comment on above: Performed By: #### C BCD1 ####[facility] [place], [place] [address] MCHC mass conc (RBC) 34.4 % Normal 31.6-34.8 [facility] Comment on above: Performed By: #### C BCD1 ####[facility] [place], [place] [address] MCV 90.3 fL Normal 79.4-94.8 [facility] Comment on above: Performed By: #### C BCD1 ####[address] [address] Monocytes 0.37 thou/cmm Normal 0.27-0.70 [facility] Comment on above: Performed By: #### C BCD1 ####[address] [address] Monocytes/100 leukocytes 8.2 % Normal [facility] Comment on above: Performed By: #### C BCD1 ####[address] [address] Platelet mean volume (PMV) 8.8 fL Low 9.4-12.3 [facility] Comment on above: Performed By: #### C BCD1 ####[address] [address] Platelets 293 thou/cmm Normal 182-369 [facility] Comment on above: Performed By: #### C BCD1 ####[address] [address] RDW SD 41.1 fl Normal 36.4-46.3 [facility] Comment on above: Performed By: #### C BCD1 ####[address] [address] Seg Neutrophil 50.5 % Normal [facility] Comment on above: Performed By: #### C BCD1 ####[facility] [place], [place] [address] Seg. Neut.# 2.28 thou/cmm Normal 1.56-6.13 [facility] Comment on above: Performed By: #### C BCD1 ####[facility] [place], [place] [address] WBC (Leukocytes) 4.52 thou/cmm Normal 3.98-10.04 [facility] Comment on above: Performed By: #### C BCD1 ####[facility] [place], [place] [address] Venipuncture ACCon 7 Venipuncture ACC COMPLETED Normal [facility] Comment on above: Performed By: #### V ENP ####[address] [address] Vital Signs Date Time Vital Sign Value Performing Clinician Burton avery 01-04-2025 11:01-0400 Body height 167.64 cm Brenda Podlogar MYCOLOGIST-C Work Phone: 9(892)571-169222 [place] [address] 01-04-2025 11:01-0400 Body mass index (BMI) [Ratio] 29 kg/m2 Brenda Podlogar MYCOLOGIST-C Work Phone: 4(829)932-456818 [place] [address] 01-04-2025 11:01-0400 Body temperature 97.2 [degF] Brenda Podlogar MYCOLOGIST-C Work Phone: 6(963)858-496718 [place] [address] 01-04-2025 11:01-0400 Body weight 81.41 kg Brenda Podlogar MYCOLOGIST-C Work Phone: 0(342)086-487322 [place] [address] 01-04-2025 11:01-0400 Diastolic blood pressure 75 mm[Hg] Brenda Podlogar MYCOLOGIST-C Work Phone: [facility] 01-04-2025 11:01-0400 Heart rate 70 /min Brenda Podlogar MYCOLOGIST-C Work Phone: 9(002)005-020222 [place] [address] 01-04-2025 11:01-0400 Respiratory rate 18 /min Brenda Podlogar MYCOLOGIST-C Work Phone: 2(711)894-469322 [place] [address] 01-04-2025 11:01-0400 SaO2% (BldA) [Mass fraction] 99 % Brenda Podlogar MYCOLOGIST-C Work Phone: 3(068)533-588018 [place] [address] 01-04-2025 11:01-0400 Systolic blood pressure 121 mm[Hg] Brenda Podlogar MYCOLOGIST-C Work Phone: 5(142)791-566018 [place] [address] 12-28-2024 22:23-0400 Body temperature 97.7 [degF] Brenda Podlogar MYCOLOGIST-C Work Phone: 0(961)087-335518 [place] [address] 12-28-2024 22:23-0400 Diastolic blood pressure 85 mm[Hg] Brenda Podlogar MYCOLOGIST-C Work Phone: 6(745)968-103018 [place] [address] 12-28-2024 22:23-0400 Heart rate 72 /min Brenda Podlogar MYCOLOGIST-C Work Phone: 9(363)255-837718 [place] [address] 12-28-2024 22:23-0400 Respiratory rate 18 /min Brenda Podlogar MYCOLOGIST-C Work Phone: 2(679)516-103818 [place] [address] 12-28-2024 22:23-0400 SaO2% (BldA) [Mass fraction] 100 % Brenda Podlogar MYCOLOGIST-C Work Phone: 6(518)109-013518 [place] [address] 12-28-2024 22:23-0400 Systolic blood pressure 128 mm[Hg] Brenda Podlogar MYCOLOGIST-C Work Phone: 8(070)909-828918 [place] [address] 12-28-2024 15:59-0400 Body height 167.64 cm Brenda Podlogar MYCOLOGIST-C Work Phone: 7(249)637-000818 [place] [address] 12-28-2024 15:59-0400 Body mass index (BMI) [Ratio] 28.9 kg/m2 Brenda Podlogar MYCOLOGIST-C Work Phone: 3(475)066-184718 [place] [address] 12-28-2024 15:59-0400 Body weight 81.37 kg Brenda Podlogar MYCOLOGIST-C Work Phone: 6(083)114-107618 [place] [address] 10-15-2024 09:50-0400 Body mass index (BMI) [Ratio] 28.73 kg/m2 Marleni Freeman MD Work Phone: [facility] 10-15-2024 09:50-0400 Body weight 80.74 kg Marleni Freeman MD Work Phone: [facility] 10-15-2024 09:50-0400 Diastolic blood pressure 80 mm[Hg] Marleni Freeman MD Work Phone: [facility] 10-15-2024 09:50-0400 Heart rate 70 /min Marleni Freeman MD Work Phone: [facility] 10-15-2024 09:50-0400 SaO2% (BldA) [Mass fraction] 100 % Marleni Freeman MD Work Phone: [facility] 10-15-2024 09:50-0400 Systolic blood pressure 122 mm[Hg] Marleni Freeman MD Work Phone: [facility] 07-16-2024 18:12-0500 Body mass index (BMI) [Ratio] 29.28 kg/m2 Krislyn Aberegg PA Work Phone: [facility] 07-16-2024 18:12-0500 Body temperature 98.2 [degF] Krislyn Aberegg PA Work Phone: [facility] 07-16-2024 18:12-0500 Body weight 82.3 kg Krislyn Aberegg PA Work Phone: [facility] 07-16-2024 18:12-0500 Diastolic blood pressure 80 mm[Hg] Krislyn Aberegg PA Work Phone: [facility] 07-16-2024 18:12-0500 Heart rate 89 /min Krislyn Aberegg PA Work Phone: [facility] 07-16-2024 18:12-0500 Respiratory rate 18 /min Krislyn Aberegg PA Work Phone: [facility] 07-16-2024 18:12-0500 SaO2% (BldA) [Mass fraction] 100 % Krislyn Aberegg PA Work Phone: [facility] 07-16-2024 18:12-0500 Systolic blood pressure 100 mm[Hg] Krislyn Aberegg PA Work Phone: [facility] 05-18-2024 14:03-0400 Body mass index (BMI) [Ratio] 28.89 kg/m2 Marleni Freeman MD Work Phone: [facility] 05-18-2024 14:03-0400 Body weight 81.19 kg Marleni Freeman MD Work Phone: [facility] 05-18-2024 14:03-0400 Diastolic blood pressure 68 mm[Hg] Marleni Freeman MD Work Phone: [facility] 05-18-2024 14:03-0400 Heart rate 86 /min Marleni Freeman MD Work Phone: [facility] 05-18-2024 14:03-0400 SaO2% (BldA) [Mass fraction] 98 % Marleni Freeman MD Work Phone: [facility] 05-18-2024 14:03-0400 Systolic blood pressure 118 mm[Hg] Marleni Freeman MD Work Phone: [facility] 03-09-2024 08:51-0400 Body height 167.6 cm Augusta Anderson MD Work Phone: [facility] 03-09-2024 08:51-0400 Body mass index (BMI) [Ratio] 29.02 kg/m2 Augusta Anderson MD Work Phone: [facility] 03-09-2024 08:51-0400 Body weight 81.56 kg Augusta Anderson MD Work Phone: [facility] 03-09-2024 08:51-0400 Diastolic blood pressure 80 mm[Hg] Augsuta Anderson MD Work Phone: [facility] 03-09-2024 08:51-0400 Heart rate 72 /min Augusta Anderson MD Work Phone: [facility] 03-09-2024 08:51-0400 Respiratory rate 18 /min Augusta Anderson MD Work Phone: [facility] 03-09-2024 08:51-0400 SaO2% (BldA) [Mass fraction] 100 % Augusta Anderson MD Work Phone: [facility] 03-09-2024 08:51-0400 Systolic blood pressure 126 mm[Hg] Augusta Anderson MD Work Phone: [facility] 03-03-2024 08:25-0400 Body height 166.4 cm Marleni Freeman MD Work Phone: [facility] 03-03-2024 08:25-0400 Body mass index (BMI) [Ratio] 29.2 kg/m2 Marleni Freeman MD Work Phone: [facility] 03-03-2024 08:25-0400 Body weight 80.83 kg Marleni Freeman MD Work Phone: [facility] 03-03-2024 08:25-0400 Diastolic blood pressure 62 mm[Hg] Marleni Freeman MD Work Phone: [facility] 03-03-2024 08:25-0400 Systolic blood pressure 102 mm[Hg] Marleni Freeman MD Work Phone: [facility] 01-28-2024 09:57-0400 Body mass index (BMI) [Ratio] 27.76 kg/m2 Marleni Freeman MD Work Phone: [facility] 01-28-2024 09:57-0400 Body weight 78.02 kg Marleni Freeman MD Work Phone: [facility] 01-28-2024 09:57-0400 Diastolic blood pressure 82 mm[Hg] Marleni Freeman MD Work Phone: [facility] 01-28-2024 09:57-0400 Heart rate 88 /min Marleniyamile Freeman MD Work Phone: [facility] 01-28-2024 09:57-0400 SaO2% (BldA) [Mass fraction] 100 % Marleniyamile Freeman MD Work Phone: [facility] 01-28-2024 09:57-0400 Systolic blood pressure 124 mm[Hg] Marleni Freeman MD Work Phone: [facility] 11-26-2023 08:59-0400 Body mass index (BMI) [Ratio] 28.08 kg/m2 Marleni Freeman MD Work Phone: [facility] 11-26-2023 08:59-0400 Body weight 78.93 kg Marleni Freeman MD Work Phone: [facility] 11-26-2023 08:59-0400 Diastolic blood pressure 82 mm[Hg] Marleni Freeman MD Work Phone: [facility] 11-26-2023 08:59-0400 Heart rate 106 /min Marleniyamile Freeman MD Work Phone: [facility] 11-26-2023 08:59-0400 SaO2% (BldA) [Mass fraction] 99 % Marleni Freeman MD Work Phone: [facility] 11-26-2023 08:59-0400 Systolic blood pressure 138 mm[Hg] Marleni Freeman MD Work Phone: [facility] 10-29-2023 11:47-0400 Body weight 80.65 kg Brenda Podlogar WAREHOUSE DISTRIBUTION SPECIALIST.ARTIFICIAL TEETH INSPECTOR Work Phone: [facility] 10-29-2023 11:47-0400 Diastolic blood pressure 74 mm[Hg] Brenda Podlogar WAREHOUSE DISTRIBUTION SPECIALIST.ARTIFICIAL TEETH INSPECTOR Work Phone: [facility] 10-29-2023 11:47-0400 Heart rate 77 /min Brenda Podlogar WAREHOUSE DISTRIBUTION SPECIALIST.ARTIFICIAL TEETH INSPECTOR Work Phone: [facility] 10-29-2023 11:47-0400 Respiratory rate 18 /min Brenda Podlogar WAREHOUSE DISTRIBUTION SPECIALIST.ARTIFICIAL TEETH INSPECTOR Work Phone: [facility] 10-29-2023 11:47-0400 SaO2% (BldA) [Mass fraction] 98 % Brenda Podlogar WAREHOUSE DISTRIBUTION SPECIALIST.ARTIFICIAL TEETH INSPECTOR Work Phone: [facility] 10-29-2023 11:47-0400 Systolic blood pressure 96 mm[Hg] Brenda Podlogar WAREHOUSE DISTRIBUTION SPECIALIST.ARTIFICIAL TEETH INSPECTOR Work Phone: [facility] 10-29-2023 09:38-0400 Body weight 79.38 kg Marleni Freeman MD Work Phone: [facility] 10-29-2023 09:38-0400 Diastolic blood pressure 62 mm[Hg] Marleni Freeman MD Work Phone: [facility] 10-29-2023 09:38-0400 Heart rate 82 /min Marleni Freeman MD Work Phone: [facility] 10-29-2023 09:38-0400 SaO2% (BldA) [Mass fraction] 99 % Marleni Freeman MD Work Phone: [facility] 10-29-2023 09:38-0400 Systolic blood pressure 106 mm[Hg] Marleni Freeman MD Work Phone: [facility] 05-16-2023 09:14-0400 Body weight 80.29 kg Marleniyamile Freeman MD Work Phone: [facility] 05-16-2023 09:14-0400 Diastolic blood pressure 76 mm[Hg] Marleni Freeman MD Work Phone: [facility] 05-16-2023 09:14-0400 Heart rate 69 /min Marleniyamile Freeman MD Work Phone: [facility] 05-16-2023 09:14-0400 SaO2% (BldA) [Mass fraction] 96 % Marleniyamile Freeman MD Work Phone: [facility] 05-16-2023 09:14-0400 Systolic blood pressure 126 mm[Hg] Marleni Freeman MD Work Phone: [facility] 02-20-2023 10:08-0400 Body weight 83.46 kg Marleni Freeman MD Work Phone: [facility] 02-20-2023 10:08-0400 Diastolic blood pressure 80 mm[Hg] Marleni Freeman MD Work Phone: [facility] 02-20-2023 10:08-0400 Heart rate 66 /min Marleni Freeman MD Work Phone: [facility] 02-20-2023 10:08-0400 SaO2% (BldA) [Mass fraction] 100 % Marleniyamile Freeman MD Work Phone: [facility] 02-20-2023 10:08-0400 Systolic blood pressure 130 mm[Hg] Marleni Freeman MD Work Phone: [facility] 01-07-2023 08:59-0400 Body weight 84.37 kg Marleni Freeman MD Work Phone: [facility] 01-07-2023 08:59-0400 Diastolic blood pressure 80 mm[Hg] Marleni Freeman MD Work Phone: [facility] 01-07-2023 08:59-0400 Heart rate 84 /min Marleniyamile Freeman MD Work Phone: [facility] 01-07-2023 08:59-0400 SaO2% (BldA) [Mass fraction] 100 % Marleniyamile Freeman MD Work Phone: [facility] 01-07-2023 08:59-0400 Systolic blood pressure 124 mm[Hg] Marleniemily Freeman MD Work Phone: [facility] 11-26-2022 08:37-0400 Body weight 85.28 kg Marleniyamile Freeman MD Work Phone: [facility] 11-26-2022 08:37-0400 Diastolic blood pressure 74 mm[Hg] Marleniyamile Freeman MD Work Phone: [facility] 11-26-2022 08:37-0400 Heart rate 88 /min Marleniemily Freeman MD Work Phone: [facility] 11-26-2022 08:37-0400 SaO2% (BldA) [Mass fraction] 100 % Marleniyamile Freeman MD Work Phone: [facility] 11-26-2022 08:37-0400 Systolic blood pressure 118 mm[Hg] Marleniyamile Freeman MD Work Phone: [facility] 10-23-2022 09:04-0400 Body weight 88.13 kg Marleni Freeman MD Work Phone: [facility] 10-23-2022 09:04-0400 Diastolic blood pressure 70 mm[Hg] Marleni Freeman MD Work Phone: [facility] 10-23-2022 09:04-0400 Heart rate 80 /min Marleniyamile Freeman MD Work Phone: [facility] 10-23-2022 09:04-0400 Systolic blood pressure 116 mm[Hg] Marleni Freeman MD Work Phone: [facility] 09-13-2022 08:19-0500 Body height 167.6 cm Marleni Freeman MD Work Phone: [facility] 09-13-2022 08:19-0500 Body weight 86.18 kg Marleni Freeman MD Work Phone: [facility] 09-13-2022 08:19-0500 Diastolic blood pressure 72 mm[Hg] Marleni Freeman MD Work Phone: [facility] 09-13-2022 08:19-0500 Systolic blood pressure 116 mm[Hg] Marleni Freeman MD Work Phone: [facility] 05-22-2022 08:56-0400 Body weight 94.8 kg Marleni Freeman MD Work Phone: [facility] 05-22-2022 08:56-0400 Diastolic blood pressure 70 mm[Hg] Marleni Freeman MD Work Phone: [facility] 05-22-2022 08:56-0400 Systolic blood pressure 110 mm[Hg] Marleni Freeman MD Work Phone: [facility] 02-12-2022 10:28-0400 Body weight 92.99 kg Marleni Freeman MD Work Phone: [facility] 02-12-2022 10:28-0400 Diastolic blood pressure 76 mm[Hg] Marleni Freeman MD Work Phone: [facility] 02-12-2022 10:28-0400 Systolic blood pressure 118 mm[Hg] Marleni Freeman MD Work Phone: [facility] [facility] 12-25-2021 11:35-0400 Body height 167.64 cm Truman Olguin Other [employer] Other 12-25-2021 11:35-0400 Body mass index (BMI) [Ratio] 32.28 kg/m2 Truman Olguin Other [employer] Other 12-25-2021 11:35-0400 Body temperature 98 [degF] Truman Olguin Other [employer] Other 12-25-2021 11:35-0400 Body weight 90.72 kg Truman Olguin Other [employer] Other 12-25-2021 11:35-0400 Respiratory rate 18 /min Truman Olguin Other [employer] Other 12-25-2021 11:35-0400 SaO2% (BldA) [Mass fraction] 99 % Truman Olguin Other [employer] Other 10-07-2021 13:24-0500 Body height 165 cm Lito Tourlas Other Phone: [facility] 10-07-2021 13:24-0500 Body temperature 97.52 [degF] Lito Tourlas Other Phone: [facility] 10-07-2021 13:24-0500 Diastolic blood pressure 79 mm[Hg] Lito Tourlas Other Phone: [facility] 10-07-2021 13:24-0500 Heart rate 80 /min Lito Tourlas Other Phone: [facility] 10-07-2021 13:24-0500 SaO2% (BldA) [Mass fraction] 98 % Lito Tourlas Other Phone: [facility] 10-07-2021 13:24-0500 Systolic blood pressure 123 mm[Hg] Lito Tourlas Other Phone: [facility] 04-25-2021 14:30-0400 Body height 167.6 cm Lito Tourlas Other Phone: [facility] 04-25-2021 14:30-0400 Body temperature 97.34 [degF] Lito Tourlas Other Phone: [facility] 04-25-2021 14:30-0400 Diastolic blood pressure 77 mm[Hg] Lito Tourlas Other Phone: [facility] 04-25-2021 14:30-0400 Heart rate 94 /min Lito Tourlas Other Phone: [facility] 04-25-2021 14:30-0400 Respiratory rate 20 /min Lito Tourlas Other Phone: [facility] 04-25-2021 14:30-0400 SaO2% (BldA) [Mass fraction] 97 % Lito Tourlas Other Phone: [facility] 04-25-2021 14:30-0400 Systolic blood pressure 115 mm[Hg] Lito Tourlas Other Phone: [facility] 01-31-2021 14:51-0400 Body height 167.6 cm Lito Tourlas Other Phone: [facility] 01-31-2021 14:51-0400 Body temperature 97.34 [degF] Lito Tourlas Other Phone: [facility] 01-31-2021 14:51-0400 Diastolic blood pressure 75 mm[Hg] Lito Tourlas Other Phone: [facility] 01-31-2021 14:51-0400 Heart rate 80 /min Lito Tourlas Other Phone: [facility] 01-31-2021 14:51-0400 Respiratory rate 20 /min Lito Tourlas Other Phone: [facility] 01-31-2021 14:51-0400 SaO2% (BldA) [Mass fraction] 98 % Lito Tourlas Other Phone: [facility] 01-31-2021 14:51-0400 Systolic blood pressure 113 mm[Hg] Lito Tourlas Other Phone: [facility] 03-02-2020 10:28-0400 BMI (Body Mass Index) 32.65 kg/m2 [id number] [facility] [id number] RN [facility] Work Phone: 03-02-2020 10:28-0400 Body weight 91.76 kg [id number] [facility] [id number] RN [facility] Work Phone: 03-02-2020 10:28-0400 BP Diastolic 80 mm[Hg] [id number] [facility] [id number] RN [facility] Work Phone: 03-02-2020 10:28-0400 BP Systolic 122 mm[Hg] [id number] [facility] [id number] RN [facility] Work Phone: 03-02-2020 10:28-0400 BSA (Body Surface Area) 2.01 m2 [id number] [facility] [id number] RN [facility] Work Phone: 03-02-2020 10:28-0400 Height 167.64 cm [id number] [facility] [id number] RN [facility] Work Phone: 03-02-2020 10:28-0400 Pulse (Heart Rate) 72 /min [id number] [facility] [id number] RN [facility] Work Phone: 02-18-2020 12:38-0400 BMI (Body Mass Index) 32.12 kg/m2 [id number] [facility] [id number] RN [facility] Work Phone: 02-18-2020 12:38-0400 Body Temperature 97.6 [degF] [id number] [facility] [id number] RN [facility] Work Phone: 02-18-2020 12:38-0400 Body weight 90.27 kg [id number] [facility] [id number] RN [facility] Work Phone: 02-18-2020 12:38-0400 BP Diastolic 84 mm[Hg] [id number] [facility] [id number] RN [facility] Work Phone: 02-18-2020 12:38-0400 BP Systolic 134 mm[Hg] [id number] [facility] [id number] RN [facility] Work Phone: 02-18-2020 12:38-0400 BSA (Body Surface Area) 2 m2 [id number] [facility] [id number] RN [facility] Work Phone: 02-18-2020 12:38-0400 Height 167.64 cm [id number] [facility] [id number] RN [facility] Work Phone: 12-02-2019 10:44-0400 BMI (Body Mass Index) 32.12 kg/m2 Lito Sharitalas [facility] Work Phone: 12-02-2019 10:44-0400 Body weight 90.27 kg Lito Tourlas [facility] Work Phone: 12-02-2019 10:44-0400 BP Diastolic 78 mm[Hg] Lito Sharitalas -[facility] Work Phone: 12-02-2019 10:44-0400 BP Systolic 118 mm[Hg] Lito Sharitalas [facility] Work Phone: 12-02-2019 10:44-0400 BSA (Body Surface Area) 2 m2 Lito Tourlas [facility] Work Phone: 12-02-2019 10:44-0400 Height 167.64 cm Lito Sharitalas [facility] Work Phone: 12-02-2019 10:44-0400 Pulse (Heart Rate) 68 /min Lito Sharitalas [facility] Work Phone: 11-02-2019 10:02-0400 BMI (Body Mass Index) 31.38 kg/m2 Lito Tourlas [facility] Work Phone: 11-02-2019 10:02-0400 Body weight 88.18 kg Lito Sherifflas [facility] Work Phone: 11-02-2019 10:02-0400 BP Diastolic 70 mm[Hg] Lito Sharitalas [facility] Work Phone: 11-02-2019 10:02-0400 BP Systolic 118 mm[Hg] Lito Sharitalas [facility] Work Phone: 11-02-2019 10:02-0400 BSA (Body Surface Area) 1.98 m2 Lito Sherifflas [facility] Work Phone: 11-02-2019 10:02-0400 Height 167.64 cm Lito Tourlas [facility] Work Phone: 11-02-2019 10:02-0400 Pulse (Heart Rate) 72 /min Lito Sharitalas [facility] Work Phone: Encounters Encounter Date Encounter Type Care Provider Facility Start: 01-14-2025 ambulatory Brenda Podlogar MYCOLOGIST Facil ity:[facility] Start: 01-13-2025 ambulatory Brenda Podlogar MYCOLOGIST Facil ity:[facility] Start: 01-08-2025 Encounter for other preprocedural examination Yaw Sandhu [facility] Start: 01-08-2025 Encounter for other preprocedural examination Yaw Cunninghamchitra [facility] Start: 01-04-2025 End: 01-04-2025 ambulatory Brenda Podlogar MYCOLOGIST-C Work Phone: [facility] Work Phone: Start: 01-04-2025 End: 01-04-[address] Yaw Sandhu MD -Laboratory Work Phone: Start: 01-04-2025 End: 01-04-[address] Yaw Sandhu MD -[facility] Work Phone: Start: 01-04-2025 End: 01-04-2025 ambulatory Brenda Podlogar MYCOLOGIST-C Work Phone: [facility] Work Phone: Start: 01-04-2025 End: 01-04-2025 ambulatory Yaw Sandhu Facility:[facility] Start: 12-31-2024 End: 12-31-2024 ambulatory SELF Facility:[facility] Start: 12-31-2024 End: 12-31-2024 Patient encounter procedure Brenda Roy WAREHOUSE DISTRIBUTION SPECIALISTRadhikaARTIFICIAL TEETH INSPECTOR Work Phone: [facility] [place] Comment on above: Failure to attend ap pointment with reason given (Primary Dx) Start: 12-29-2024 End: 12-29-2024 ambulatory Marleni Freeman MD Work Phone: OB/Gynecology Start: 12-29-2024 End: 12-29-2024 Follow-up encounter Marleni Freeman MD Work Phone: OB/Gynecology Comment on above: ER visit follow-up Start: 12-28-2024 End: 12-28-2024 Emergency department patient visit Brenda Podlogar MYCOLOGIST-C Work Phone: -Emergency Department Work Phone: Start: 10-27-2024 End: 10-27-2024 Telephone encounter Marleni Freeman MD Work Phone: OB/Gynecology Comment on above: Insurance Authorizat ion Start: 10-15-2024 End: 10-15-2024 ambulatory MARLENI FREEMAN Facility:[facility] Start: 10-15-2024 End: 10-15-2024 Patient encounter procedure Marleni Freeman MD Work Phone: OB/Gynecology Comment on above: Malaise and fatigue (Primary Dx); Hypothyroidism, unspecified type; Polyarthropathy, inflammatory (HCC); Other migraine without status migrainosus, not intractable; Poor sleep; Iron deficiency; Encounter for long-term (current) use of medications; Class 1 obesity with body mass index (BMI) of 34.0 to 34.9 in adult, unspecified obesity type, unspecified whether serious comorbidity present Start: 08-09-2024 End: 08-10-2024 Refill Brenda Podlogar ARTIFICIAL TEETH INSPECTOR Work Phone: [facility] [place] Comment on above: Refill Request Start: 07-16-2024 End: 07-16-2024 ambulatory BRENDA PODLOGAR Facility:[facility] Start: 07-16-2024 End: 07-16-2024 Patient encounter procedure Kvng HERNANDEZ Work Phone: [facility] Comment on above: Urinary frequency (P rimary Dx); Vaginal odor Start: 06-12-2024 End: 06-15-2024 Refill Brenda Podlogar WAREHOUSE DISTRIBUTION SPECIALISTRadhikaARTIFICIAL TEETH INSPECTOR Work Phone: [facility] [place] Comment on above: Refill Request Start: 05-18-2024 End: 05-18-2024 ambulatory BRENDA PODLOGAR Facility:[facility] Start: 05-18-2024 End: 05-18-2024 Patient encounter procedure Marleni Freeman MD Work Phone: OB/Gynecology Comment on above: Malaise and fatigue (Primary Dx); Hypothyroidism, unspecified type; Polyarthropathy, inflammatory (HCC); Other migraine without status migrainosus, not intractable; Poor sleep; Iron deficiency; Class 1 obesity without serious comorbidity with body mass index (BMI) of 31.0 to 31.9 in adult, unspecified obesity type Start: 03-27-2024 End: 03-27-2024 Telephone encounter Marleni Freeman MD Work Phone: OB/Gynecology Comment on above: Results Start: 03-26-2024 End: 03-26-2024 ambulatory BRENDA PODLOGAR Facility:[facility] Start: 03-17-2024 End: 03-17-2024 ambulatory Marleni Freeman MD Work Phone: OB/Gynecology Comment on above: Meds Start: 03-14-2024 End: 03-14-2024 ambulatory AUGUSTA ANDERSON Facility:[facility] Start: 03-09-2024 End: 03-09-2024 ambulatory MARLENI FREEMAN Facility:[facility] Start: 03-09-2024 End: 03-09-2024 Patient encounter procedure Augusta Anderson MD Work Phone: Endocrinology Comment on above: Inappropriately low serum insulin (Primary Dx) Start: 03-03-2024 End: 03-03-2024 ambulatory BRENDA PODLOGAR Facility:[facility] Start: 03-03-2024 End: 03-03-2024 Patient encounter procedure Marleni Freeman MD Work Phone: OB/Gynecology Comment on above: Encounter for gyneco logical examination (general) (routine) without abnormal findings (Primary Dx); Encounter for screening mammogram for breast cancer Start: 03-03-2024 End: 03-03-2024 Patient encounter status Marleni Freeman MD Work Phone: [facility] Start: 02-25-2024 End: 02-25-2024 ambulatory [facility] Start: 02-07-2024 Telephone encounter Marleni Freeman MD Work Phone: OB/Gynecology Comment on above: Question Start: 02-05-2024 End: 02-05-2024 ambulatory MARLENI FREEMAN Facility:[facility] Start: 01-28-2024 End: 01-28-2024 ambulatory BRENDA PODLOGAR Facility:[facility] Start: 01-28-2024 End: 01-28-2024 Patient encounter procedure Marleni Freeman MD Work Phone: OB/Gynecology Comment on above: Malaise and fatigue (Primary Dx); Hypothyroidism, unspecified type; Polyarthropathy, inflammatory (HCC); Other migraine without status migrainosus, not intractable; Poor sleep; Iron deficiency; Class 1 obesity without serious comorbidity with body mass index (BMI) of 31.0 to 31.9 in adult, unspecified obesity type; Encounter for screening for diabetes mellitus; Screening cholesterol level; Class 1 obesity with body mass index (BMI) of 34.0 to 34.9 in adult, unspecified obesity type, unspecified whether serious comorbidity present Start: 11-26-2023 End: 11-26-2023 Patient encounter procedure Marleni Freeman MD Work Phone: OB/Gynecology Comment on above: Encounter for IUD re moval (Primary Dx); Encounter for IUD insertion; Malpositioned intrauterine device (IUD), initial encounter; Abnormal uterine bleeding (AUB); Adenomyosis of uterus Start: 11-22-2023 Documentation procedure Mammog guadalupe Coordinator [facility] Department Start: 11-22-2023 Letter encounter Mammography Coordinator [facility] Start: 11-22-2023 Telephone encounter Ruth self APRN.CNP Work Phone: [facility] [place] Comment on above: Results Start: 11-21-2023 Telephone encounter Marleni Freeman MD Work Phone: OB/Gynecology Comment on above: Appointment Start: 11-21-2023 End: 11-21-2023 ambulatory Ob Ultrasound Work Phone: OB/Gynecology Comment on above: DUB Start: 11-21-2023 End: 11-21-2023 Patient encounter procedure [employer] [facility] Work Phone: OB/Gynecology Start: 11-21-2023 End: 11-21-2023 Subsequent hospital visit by physician Screen Mammo [facility] Comment on above: Encounter for screen ing mammogram for breast cancer [Z12.31] Start: 10-29-2023 End: 10-29-2023 Patient encounter procedure Marleni Freeman MD Work Phone: OB/Gynecology Comment on above: Malaise and fatigue (Primary Dx); Hypothyroidism, unspecified type; Polyarthropathy, inflammatory (HCC); Other migraine without status migrainosus, not intractable; Poor sleep; Hot flashes; Iron deficiency; Abnormal uterine bleeding (AUB); IUD (intrauterine device) in place; Class 1 obesity without serious comorbidity with body mass index (BMI) of 31.0 to 31.9 in adult, unspecified obesity type; Encounter for screening mammogram for malignant neoplasm of breast Anxiety and depressi on (Primary Dx); Thyroid disease; Crohn's disease of colon without complication (HCC) Start: 10-16-2023 ambulatory Brenda Podlogar WAREHOUSE DISTRIBUTION SPECIALIST.ARTIFICIAL TEETH INSPECTOR Work Phone: [facility] [place] Start: 09-14-2023 Refill Brenda Velezlogchris WAREHOUSE DISTRIBUTION SPECIALIST.ARTIFICIAL TEETH INSPECTOR Work Phone: [facility] [place] Comment on above: Refill Request Start: 09-02-2023 ambulatory Marleni Freeman MD Work Phone: OB/Gynecology Comment on above: Tests Start: 05-16-2023 End: 05-16-2023 Patient encounter procedure Marleni Freeman MD Work Phone: OB/Gynecology Comment on above: Malaise and fatigue (Primary Dx); Polyarthropathy, inflammatory (HCC); Hypothyroidism, unspecified type; Class 1 obesity without serious comorbidity with body mass index (BMI) of 31.0 to 31.9 in adult, unspecified obesity type; Other migraine without status migrainosus, not intractable; Poor sleep Start: 02-20-2023 End: 02-20-2023 Patient encounter procedure Marleni Freeman MD Work Phone: OB/Gynecology Comment on above: Hypothyroidism, unsp ecified type (Primary Dx); Polyarthropathy, inflammatory (HCC); Hot flashes; Poor sleep; Other migraine without status migrainosus, not intractable; Iron deficiency; Encounter for vitamin deficiency screening; Class 1 obesity without serious comorbidity with body mass index (BMI) of 31.0 to 31.9 in adult, unspecified obesity type; Encounter for screening for diabetes mellitus; Screening, anemia, deficiency, iron Start: 01-07-2023 End: 01-07-2023 Patient encounter procedure Marleni Freeman MD Work Phone: OB/Gynecology Comment on above: Polyarthropathy, inf lammatory (HCC) (Primary Dx); Hypothyroidism, unspecified type; Deficiency anemia; Class 1 obesity without serious comorbidity with body mass index (BMI) of 31.0 to 31.9 in adult, unspecified obesity type; Encounter for weight management Start: 11-26-2022 End: 11-26-2022 Patient encounter procedure Marleni Freeman MD Work Phone: OB/Gynecology Comment on above: Class 1 obesity with out serious comorbidity with body mass index (BMI) of 31.0 to 31.9 in adult, unspecified obesity type (Primary Dx); Encounter for weight management; Encounter for weight loss counseling; Other depression; Low ferritin; Hypothyroidism, unspecified type Start: 10-23-2022 Telephone encounter Marleni Freeman MD Work Phone: OB/Gynecology Comment on above: Insurance Authorizat ion Start: 10-23-2022 End: 10-23-2022 Patient encounter procedure Marleni Freeman MD Work Phone: OB/Gynecology Comment on above: Polyarthropathy, inf lammatory (HCC) (Primary Dx); Class 1 obesity without serious comorbidity with body mass index (BMI) of 31.0 to 31.9 in adult, unspecified obesity type; Encounter for weight management Start: 09-28-2022 Telephone encounter Beth tirado PA-C Work Phone: Gastroenterology [place] Comment on above: Appointment Start: 09-14-2022 Documentation procedure Mammog guadalupe Coordinator [facility] Start: 09-14-2022 Letter encounter Mammography Coordinator [facility] Department Start: 09-14-2022 Telephone encounter Brenda Sheppard ogar WAREHOUSE DISTRIBUTION SPECIALIST.ARTIFICIAL TEETH INSPECTOR Work Phone: [facility] [place] Comment on above: Results Start: 09-13-2022 End: 09-13-2022 Patient encounter procedure Marleni Freeman MD Work Phone: OB/Gynecology Comment on above: Encounter for gyneco logical examination (general) (routine) without abnormal findings (Primary Dx); Encounter for screening mammogram for malignant neoplasm of breast; Class 1 obesity with body mass index (BMI) of 30.0 to 30.9 in adult, unspecified obesity type, unspecified whether serious comorbidity present; BMI 30.0-30.9,adult Start: 09-13-2022 End: 09-13-2022 Patient encounter status Marleni Freeman MD Work Phone: OB/Gynecology Start: 08-07-2022 Refill Brenda Podlogar WAREHOUSE DISTRIBUTION SPECIALIST.ARTIFICIAL TEETH INSPECTOR Work Phone: [facility] [place] Comment on above: Refill Request Refill Request (/) Start: 07-18-2022 ambulatory Brenda Podlogar WAREHOUSE DISTRIBUTION SPECIALIST.ARTIFICIAL TEETH INSPECTOR Work Phone: [facility] [place] Start: 05-22-2022 End: 05-22-2022 Patient encounter procedure Marleni Freeman MD Work Phone: OB/Gynecology Comment on above: Class 1 obesity with body mass index (BMI) of 34.0 to 34.9 in adult, unspecified obesity type, unspecified whether serious comorbidity present (Primary Dx); Unintended weight gain; Thyroid disease Start: 03-13-2022 Refill Brenda Podlogar WAREHOUSE DISTRIBUTION SPECIALIST.ARTIFICIAL TEETH INSPECTOR Work Phone: [facility] Comment on above: Refill Request Start: 03-12-2022 Refill Brenda Podlogar WAREHOUSE DISTRIBUTION SPECIALIST.ARTIFICIAL TEETH INSPECTOR Work Phone: [facility] Comment on above: Refill Request Start: 02-12-2022 End: 02-12-2022 Patient encounter procedure Marleni Freeman MD Work Phone: OB/Gynecology Comment on above: Recurrent UTI (Prima ry Dx); Vaginal discharge Start: 02-06-2022 ambulatory Marleni Freeman MD Work Phone: OB/Gynecology Comment on above: Bladder Infections Start: 01-31-2022 Refill Brenda Podlogar WAREHOUSE DISTRIBUTION SPECIALIST.ARTIFICIAL TEETH INSPECTOR Work Phone: Family [facility] [place] Comment on above: Refill Request Start: 12-25-2021 End: 12-25-2021 ambulatory Truman Olguin Other [employer] [employer] Other Start: 12-25-2021 Office outpatient ne w 20 minutes Truman Olguin [facility] Start: 12-25-2021 End: 12-25-2021 Departed Referred PA-C Truman Olguin Work Phone: [facility] [address] Start: 10-07-2021 End: 10-07-2021 Emergency department patient visit Michael Patton [facility] Start: 08-27-2021 ambulatory Brenda Podlogar WAREHOUSE DISTRIBUTION SPECIALIST.ARTIFICIAL TEETH INSPECTOR Work Phone: Family [facility] [place] Comment on above: citalopram Start: 04-25-2021 End: 04-25-2021 Emergency department patient visit [facility] Start: 01-31-2021 End: 01-31-2021 Emergency department patient visit [facility] Start: 04-20-2020 Patient encounter procedure [facility] Work Phone: Start: 04-19-2020 Patient encounter procedure [facility] Work Phone: Start: 04-06-2020 Patient encounter procedure Lito Tourlas [facility] Work Phone: Start: 03-22-2020 Patient encounter procedure Lito Tourlas [facility] Work Phone: Start: 03-21-2020 Patient encounter procedure Lito Tourlas [facility] Work Phone: Start: 03-07-2020 Patient encounter procedure [id number] [facility] [id number] RN [facility] Work Phone: Start: 03-02-2020 Patient encounter procedure [id number] [facility] [id number] RN [facility] Work Phone: Start: 02-24-2020 Patient encounter procedure [id number] [facility] [id number] RN [facility] Work Phone: Start: 02-18-2020 Patient encounter procedure [id number] [facility] [id number] RN [facility] Work Phone: Start: 02-04-2020 Patient encounter procedure [id number] [facility] [id number] RN [facility] Work Phone: Start: 01-13-2020 Patient encounter procedure [id number] [facility] [id number] RN [facility] Work Phone: Start: 12-23-2019 Patient encounter procedure [id number] [facility] [id number] RN [facility] Work Phone: Start: 12-02-2019 Patient encounter procedure Lito Tourlas [facility] Work Phone: Start: 11-02-2019 Patient encounter procedure Lito Tourlas [facility] Work Phone: Start: 09-28-2019 Patient encounter procedure Lito Tourlas [facility] Work Phone: Start: 08-31-2019 Patient encounter procedure Lito Hernandez [facility] Work Phone: Start: 08-24-2019 Patient encounter procedure Lito Hernandez [facility] Work Phone: Start: 08-20-2019 Patient encounter procedure Lito Sherifflas [facility] Work Phone: Start: 08-03-2019 Patient encounter procedure Lito Hernandez [facility] Work Phone: Start: 07-16-2019 Patient encounter procedure Lito Hernandez [facility] Work Phone: Start: 11-12-2018 End: 11-13-2018 Patient encounter procedure Lito Hernandez Facility:[facility] Start: 11-11-2018 End: 11-12-2018 Patient encounter procedure Lito Hernandez Facility:[facility] Start: 03-14-2018 End: 03-14-2018 Patient encounter procedure Brandon Roca Facility:Brandon Roca DO Start: 04-18-2017 End: 12-03-2017 Patient requested procedure Marleni Freeman MD Work Phone: [facility] Start: 02-18-2017 End: 02-19-2017 Ambulatory TEETEE HAQUE Facility:[facility] Procedures Date Procedure Procedure Detail Performing Clinician Start: 12-28-2024 Transvaginal echography Brenda Roy N P-C Work Phone: Start: 12-28-2024 US scan of gallbladder Brenda Roy MYCOLOGIST -C Work Phone: Start: 12-28-2024 Computed tomography of abdomen and pelvis with intravenous contrast Brenda Roy MYCOLOGIST-C Work Phone: Start: 12-28-2024 Urnls dip stick/tablet reagent auto microscopy Brenda Roy MYCOLOGIST-C Work Phone: Start: 12-28-2024 X-ray of chest, PA and lateral views Brenda Podlogar MYCOLOGIST-C Work Phone: Start: 12-28-2024 Estimated creatinine clearance Brenda Pod logar MYCOLOGIST-C Work Phone: Start: 12-28-2024 Urine culture Brenda Podlogar MYCOLOGIST-C Work Phone: Start: 07-16-2024 Urnls dip stick/tablet rgnt auto w/o microscopy Mandeep Morin WAREHOUSE DISTRIBUTION SPECIALIST.ARTIFICIAL TEETH INSPECTOR Work Phone: Start: 02-05-2024 Lipid 1996 panel - Serum or Plasma Brenda Podlogar WAREHOUSE DISTRIBUTION SPECIALIST.ARTIFICIAL TEETH INSPECTOR Work Phone: Start: 11-21-2023 Us pelvic nonobstetric real-time image complete Marleni Freeman MD Work Phone: Start: 11-08-2022 Colonoscopy Marleni Freeman MD Work Phone: Start: 09-13-2022 Mammography Brenda Podlogar WAREHOUSE DISTRIBUTION SPECIALIST.ARTIFICIAL TEETH INSPECTOR Work Phone: Start: 02-12-2022 Urnls dip stick/tablet rgnt auto w/o microscopy Marleni Freeman MD Work Phone: Start: 12-25-2021 Piperacillin/tazobactam Truman Olguin Other Start: 06-12-2021 Adult depression screening assessment Brenda Podlogar WAREHOUSE DISTRIBUTION SPECIALIST.ARTIFICIAL TEETH INSPECTOR Work Phone: Start: 06-09-2021 Mammography Brenda Podlogar WAREHOUSE DISTRIBUTION SPECIALIST.ARTIFICIAL TEETH INSPECTOR Work Phone: Start: 07-04-2020 Follow-up visit Start: 05-17-2020 Follow-up visit Start: 04-19-2020 Follow-up visit Start: 03-22-2020 Follow-up visit Start: 03-02-2020 Cyanocobalamin vitamin b-12 [id number] Franco PERRY [id number] RN Start: 12-03-2019 Mri any jt upper extremity w/o & w/contr matrl Lito Ladi Start: 12-02-2019 Assay of ferritin Lito Ladi Start: 12-02-2019 Cyanocobalamin vitamin b-12 Lito Ladi Start: 12-01-2019 CT Chest with Contrast Lito Sheriff las Start: 11-06-2019 MG Breast screening Lito Ladi Start: 11-04-2019 Ultrasound Non Vasc Extremity Limited Lito Ladi Start: 11-02-2019 Comprehensive metabolic 2000 panel Sera antinos Ladi section Jingno s Ladi Colonoscopy Lito To urlas Esophagogastroduodenoscopy K onstantinos Ladi Plan of Treatment Date Care Activity Detail Author Start: 2039 HEPATITIS B (1 of 3 - Risk 3-dose series) HEPATITIS B (1 of 3 - Risk 3-dose series) [facility] Start: 2039 Hepatitis B Vaccine (1 of 3 - Risk 3-dose series) Hepatitis B Vaccine (1 of 3 - Risk 3-dose series) [facility] Start: 06-14-2031 Urine microalbumin profile [facility] Start: 02-04-2029 Lipid panel Lipid Screening [facility] Start: 11-09-2027 Screening for malignant neoplasm of colon Sigmoidoscopy [facility] Start: 03-14-2027 Diabetes Screening Diabetes Screening [facility] Start: 07-17-2026 HPV TESTING HPV TESTING [facility] Start: 07-17-2026 PAP TESTING PAP TESTING [facility] Start: 07-17-2026 Screening for malignant neoplasm of cervix [facility] Start: 12-31-2025 Annual PCP Team Chronic Disease Visit Annual PCP Team Chronic Disease Visit [facility] Start: 11-08-2025 Colonoscopy COLONOSCOPY [facility] Start: 11-08-2025 COLORECTAL CANCER SCREENING COLORECTAL CANCER SCREENING [facility] Start: 11-08-2025 Screening for malignant neoplasm of colon [facility] Start: 04-02-2025 End: 04-02-2025 Patient encounter procedure OB/Gynecology Comment on above: 2nd attempt/Annual / LVM TO R/S Encounter for screen ing mammogram for breast cancer [Z12.31] Annual / LVM TO R/S Start: 03-29-2025 Influenza vaccination Influenza Vaccine (Season Ended) [facility] Start: 03-04-2025 End: 03-04-2025 Patient encounter procedure Mammogram Comment on above: Encounter for screening mammogram for br east cancer [Z12.31] Annual (mamm w/ nuria ) Start: 01-12-2025 End: 01-12-2025 Patient encounter procedure OB/Gynecology Comment on above: weight management follow up follow up from [facility] er, gb attack,fatty liver seen on us, elevated ast of 95, alt of 84 Start: 01-04-2025 Comprehensive metabolic 2000 panel - Serum or Plasma [facility] Start: 12-31-2024 End: 12-31-2024 Patient encounter procedure 12/31/2024 9:00 AM EDT Office Visit Family Medicine [place] [address] [place] [address] PodlogarBrenda APRN.[facility] [address] [place] [address] follow up from [facility] er, 12/28/24 gb attack,fatty liver seen on us, elevated ast of 95, alt of 84 [facility] [place] Comment on above: follow up from [facility] er, gb attack,fatty liver seen on us, elevated ast of 95, alt of 84 Start: 12-28-2024 [facility] Start: 12-28-2024 End: 12-28-2024 [facility] Start: 12-28-2024 Bacteria identified in Urine by Culture Urine Culture [facility] Start: 11-20-2024 Screening for malignant neoplasm of breast Mammogram Screening [facility] Start: 10-28-2024 Annual PCP Team Chronic Disease Visit Annual PCP Team Chronic Disease Visit [facility] Start: 10-15-2024 End: 01-14-2025 Comprehensive metabolic 2000 panel - Serum or Plasma COMPREHENSIVE METABOLIC PANEL Lab Routine Class 1 obesity with body mass index (BMI) of 34.0 to 34.9 in adult, unspecified obesity type, unspecified whether serious comorbidity present Encounter for long-term (current) use of medications Expected: 10/15/2024, Expires: 01/14/2025 [facility] Work Phone: Comment on above: Expected: 10/15/2024, Expires: Start: 10-15-2024 End: 10-15-2024 Patient encounter procedure 10/15/2024 9:50 AM EDT Office Visit OB/Gynecology [address] [place] [address] Marleni Almonte MD [address] [place] [address] weight management f/u OB/Gynecology Comment on above: weight management f/u Start: 08-12-2024 End: 08-12-2024 Patient encounter procedure 08/12/2024 9:20 AM EST Office Visit OB/Gynecology [address] [place] [address] Marleni Almonte MD [address] [place] [address] weight management f/u OB/Gynecology Comment on above: weight management f/u Start: 08-12-2024 End: 08-12-2024 Nursing evaluation of patient and report 08/12/2024 9:00 AM EST Nurse Visit OB/Gynecology [address] [place] [address] Wstr, Nurse Office Runner [facility] [address] [place] [address] weight management f/u OB/Gynecology Comment on above: weight management f/u Start: 2024 Screening for malignant neoplasm of colon [facility] Start: 05-18-2024 End: 05-18-2024 Patient encounter procedure 05/18/2024 2:00 PM EDT Office Visit OB/Gynecology [address] [place] [address] Marleni Almonte MD [address] [place] [address] weight management follow up OB/Gynecology Comment on above: weight management follow up Start: 04-28-2024 End: 04-28-2024 Patient encounter procedure 04/28/2024 9:20 AM EDT Office Visit Endocrinology [address] [place] [address] Augusta Anderson MD [address] [place] [address] 4 WK F/U Endocrinology Comment on above: 4 WK F/U Start: 04-07-2024 End: 04-07-2024 Patient encounter procedure 04/07/2024 3:40 PM EDT Office Visit Endocrinology [address] [place] [address] Augusta Anderson MD [address] [place] [address] Inappropriately low serum insulin [R79.89] Endocrinology Comment on above: Inappropriately low serum insulin [R79.8 9] Start: 03-29-2024 Covid-19 Vaccine ( season) Covid-19 Vaccine ( season) [facility] Start: 03-29-2024 Influenza vaccination [facility] Start: 03-14-2024 End: 03-14-2024 ambulatory 03/14/2024 8:15 AM EDT Resul ts Only [place] [facility] Draw [facility] [address] [place] [address] [place] [facility] Start: 03-13-2024 End: 03-13-2024 ambulatory 03/13/2024 7:45 AM EDT Resul ts Only [place] [facility] Laboratory [address] [place] [address] LABS [facility] Comment on above: LABS Start: 03-09-2024 End: 06-08-2024 Corticotropin [Mass/volume] in Plasma ACTH BLD Lab Routine Inappropriately low serum insulin Expected: 03/09/2024, Expires: 06/08/2024 [facility] Work Phone: Comment on above: Expected: 03/09/2024, Expires: Start: 03-09-2024 End: 06-08-2024 Cortisol [Mass/volume] in Serum or Plasma CORTISOL, SERUM Lab Routine Inappropriately low serum insulin Expected: 03/09/2024, Expires: 06/08/2024 [facility] Comment on above: Expected: 03/09/2024, Expires: Start: 03-09-2024 End: 06-08-2024 Fasting glucose [Mass/volume] in Serum or Plasma GLUCOSE, FASTING Lab Routine Inappropriately low serum insulin Expected: 03/09/2024, Expires: 06/08/2024 [facility] Comment on above: Expected: 03/09/2024, Expires: Start: 03-09-2024 End: 06-08-2024 Insulin [Units/volume] in Serum or Plasma INSULIN ASSAY BLOOD Lab Routine Inappropriately low serum insulin Expected: 03/09/2024, Expires: 06/08/2024 [facility] Comment on above: Expected: 03/09/2024, Expires: Start: 03-09-2024 End: 06-08-2024 INSULIN ANTIBODY BLD INSULIN ANTIBODY BLD Lab Routine Inappropriately low serum insulin Expected: 03/09/2024, Expires: 06/08/2024 [facility] Comment on above: Expected: 03/09/2024, Expires: Start: 03-09-2024 End: 06-08-2024 INSULIN, FREE INSULIN, FREE Lab Routine Inappropriately low serum insulin Expected: 03/09/2024, Expires: 06/08/2024 [facility] Comment on above: Expected: 03/09/2024, Expires: Start: 03-03-2024 End: 03-03-2024 Patient encounter procedure 03/03/2024 8:20 AM EDT Office Visit OB/Gynecology [address] [place] [address] Marleni Almonte MD [address] [place] [id number] Annual/ ok to reschedule just needs appt before 03/09 OB/Gynecology Comment on above: Annual/ ok to reschedule just needs appt before 03/09 Start: 03-02-2024 End: 03-02-2024 Patient encounter procedure 03/02/2024 8:40 AM EDT Office Visit OB/Gynecology [address] [place] [address] Marleni Almonte MD [address] [place] [address] Annual/ ok to reschedule just needs appt before 03/09 OB/Gynecology Comment on above: Annual/ ok to reschedule just needs appt before 03/09 Start: 02-04-2024 End: 05-05-2024 CBC panel - Blood by Automated count COMPLETE BLOOD COUNT Lab Routine Malaise and fatigue Iron deficiency Expected: 02/04/2024 (Approximate), Expires: 05/05/2024 [facility] Comment on above: Expected: 02/04/2024 (Approximate), Expi res: 05/05/2024 Start: 02-04-2024 End: 05-05-2024 Comprehensive metabolic 2000 panel - Serum or Plasma COMPREHENSIVE METABOLIC PANEL Lab Routine Malaise and fatigue Class 1 obesity without serious comorbidity with body mass index (BMI) of 31.0 to 31.9 in adult, unspecified obesity type Encounter for screening for diabetes mellitus Expected: 02/04/2024 (Approximate), Expires: 05/05/2024 [facility] Work Phone: Comment on above: Expected: 02/04/2024 (Approximate), Expi res: 05/05/2024 Start: 02-04-2024 End: 05-05-2024 Insulin [Units/volume] in Serum or Plasma INSULIN ASSAY BLOOD Lab Routine Encounter for screening for diabetes mellitus Expected: 02/04/2024 (Approximate), Expires: 05/05/2024 [facility] Comment on above: Expected: 02/04/2024 (Approximate), Expi res: 05/05/2024 Start: 02-04-2024 End: 05-05-2024 Lipid 1996 panel - Serum or Plasma LIPID PANEL BASIC Lab Routine Class 1 obesity without serious comorbidity with body mass index (BMI) of 31.0 to 31.9 in adult, unspecified obesity type Screening cholesterol level Expected: 02/04/2024 (Approximate), Expires: 05/05/2024 [facility] Comment on above: Expected: 02/04/2024 (Approximate), Expi res: 05/05/2024 Start: 02-04-2024 End: 05-05-2024 Thyrotropin [Units/volume] in Serum or Plasma THYROID STIMULATING HORMONE Lab Routine Malaise and fatigue Hypothyroidism, unspecified type Expected: 02/04/2024 (Approximate), Expires: 05/05/2024 [facility] Comment on above: Expected: 02/04/2024 (Approximate), Expi res: 05/05/2024 Start: 01-28-2024 End: 01-28-2024 Patient encounter procedure 01/28/2024 9:50 AM EDT Office Visit OB/Gynecology [address] [place] [address] Marleni Almonte MD [address] [place] [address] weight management follow up OB/Gynecology Comment on above: weight management follow up Start: 11-26-2023 End: 11-26-2023 Patient encounter procedure 11/26/2023 9:00 AM EDT Office Visit OB/Gynecology [address] [place] [address] Marleni Almonte MD [address] [place] [address] iud removal & reinsertion OB/Gynecology Comment on above: iud removal & reinsertion Start: 10-29-2023 End: 10-28-2024 US Pelvis PELVIC US [facility] Anc Imaging Routine Abnormal uterine bleeding (AUB) IUD (intrauterine device) in place Expected: 10/29/2023, Expires: 10/28/2024 [facility] Work Phone: Comment on above: Expected: 10/29/2023, Expires: 5 Start: 09-13-2023 Mammography [facility] Start: 09-13-2023 Screening for malignant neoplasm of breast Mammogram Screening [facility] Start: 08-15-2023 ANNUAL PCP TEAM CHRONIC DISEASE VISIT ANNUAL PCP TEAM CHRONIC DISEASE VISIT [facility] Start: 07-29-2023 Behavioral Health Screening Behavioral Health Screening [facility] Start: 07-29-2023 Depression Assessment Depression Assessment [facility] Start: 03-29-2023 Covid-19 Vaccine () Covid-19 Vaccine () [facility] Start: 03-29-2023 Influenza vaccination [facility] Start: 10-15-2022 End: 12-15-2022 Ferritin [Mass/volume] in Serum or Plasma FERRITIN BLD Lab Routine Hx of iron deficiency anemia Expected: 10/15/2022, Expires: 12/15/2022 [facility] Work Phone: Comment on above: Expected: 10/15/2022, Expires: 3 Start: 10-15-2022 End: 12-15-2022 Iron and Iron binding capacity panel - Serum or Plasma IRON + TIBC Lab Routine Hx of iron deficiency anemia Expected: 10/15/2022, Expires: 12/15/2022 [facility] Work Phone: Comment on above: Expected: 10/15/2022, Expires: 3 Start: 07-29-2022 DEPRESSION ASSESSMENT DEPRESSION ASSESSMENT [facility] Start: 06-12-2022 Adult depression screening assessment DEPRESSION SCREENING [facility] Start: 06-09-2022 Mammography MAMMOGRAM [facility] Start: 03-29-2022 Influenza vaccination INFLUENZA (#1) [facility] Start: 12-25-2021 Bacteria identified in Urine by Culture Urine Culture [facility] Start: 10-04-2021 COVID-19 VACCINE (4 - Booster for Pfizer series) COVID-19 VACCINE (4 - Booster for Pfizer series) [facility] Start: 10-04-2021 COVID-19 VACCINE (4 - Pfizer series) COVID-19 VACCINE (4 - Pfizer series) [facility] Start: 07-29-2021 DEPRESSION ASSESSMENT DEPRESSION ASSESSMENT [facility] Start: 03-09-2021 COVID-19 VACCINE (3 - Booster for Pfizer series) COVID-19 VACCINE (3 - Booster for Pfizer series) [facility] Start: 04-03-2020 Cobalamin (Vitamin B12) [Mass/Vol] Vitamin B12, Serum [facility] Work Phone: Start: 02-01-2020 Cobalamin (Vitamin B12) [Mass/Vol] Vitamin B12, [facility] Work Phone: Start: 02-01-2020 Ferritin [Mass/Vol] Ferritin, Serum [facility] Work Phone: Start: 12-03-2019 Mri any jt upper extremity w/o & w/contr matrl MRI Shoulder w/wo Contrast [facility] Work Phone: Start: 12-01-2019 CT Chest with Contrast [facility] Work Phone: Start: 11-06-2019 Bilateral mammography Mamm - Digital Diagnostic Mammogram Bilateral w/ Tomosynthesis [facility] Work Phone: Start: 1998 HEPATITIS A (1 of 2 - Risk 2-dose series) HEPATITIS A (1 of 2 - Risk 2-dose series) [facility] Start: 1998 Hepatitis A Vaccine (1 of 2 - Risk 2-dose series) Hepatitis A Vaccine (1 of 2 - Risk 2-dose series) [facility] Start: 1998 HEPATITIS B (1 of 3 - Risk 3-dose series) HEPATITIS B (1 of 3 - Risk 3-dose series) [facility] Start: 1998 Hepatitis B Vaccine (1 of 3 - 19+ 3-dose series) Hepatitis B Vaccine (1 of 3 - 19+ 3-dose series) [facility] Start: 1997 Anxiety Screening Anxiety Screening [facility] Start: 1997 Depression Screening Depression Screening [facility] Start: 1997 MMR (1 of 2 - Risk 2-dose series) MMR (1 of 2 - Risk 2-dose series) [facility] Start: 1997 MMR Vaccine (1 of 2 - Risk 2-dose series) MMR Vaccine (1 of 2 - Risk 2-dose series) [facility] Start: 1989 Meningococcal B Vaccine: Consider Based On Risk (1 of 4 - Increased Risk) Meningococcal B Vaccine: Consider Based On Risk (1 of 4 - Increased Risk) [facility] Start: 1989 MENINGOCOCCAL B: Consider based on risk (1 of 4 - Increased Risk Bexsero 2-dose series) MENINGOCOCCAL B: Consider based on risk (1 of 4 - Increased Risk Bexsero 2-dose series) [facility] Start: 1989 MENINGOCOCCAL B: Consider based on risk (1 of 4 - Increased Risk) MENINGOCOCCAL B: Consider based on risk (1 of 4 - Increased Risk) [facility] Start: 1985 Pneumococcal vaccination Pneumococcal Vaccine (1 of 2 - PCV) [facility] Start: 1980 HEPATITIS A (1 of 2 - Risk 2-dose series) HEPATITIS A (1 of 2 - Risk 2-dose series) [facility] Alanine aminotransferase [Enzymatic activity/volume] in Serum or Plasma [facility] Albumin [Mass/volume ] in Serum or Plasma [facility] Alkaline phosphatase [Enzymatic activity/volume] in Serum or Plasma [facility] Anion gap in Serum o r Plasma [facility] Bacteria identified in Urine by Culture [facility] Work Phone: Bacteria identified in Urine by Culture URINE CULTURE Microbiology Routine Urinary frequency Ordered: 07/16/2024 [facility] Work Phone: Comment on above: Ordered: 07/16/2024 BACTERIAL VAGINOSIS NAAT BACTERIAL VAGINOSIS NAAT Lab Routine Urinary frequency Vaginal odor Ordered: 07/16/2024 [facility] Comment on above: Ordered: 07/16/2024 Bilirubin, total measurement [facility] BUN/Creatinine ratio [facility] Calcium [Mass/volume ] in Serum or Plasma [facility] RACHELLE/TRICHOMONAS NAAT RACHELLE/TRICHOMONAS NAAT Lab Routine Urinary frequency Vaginal odor Ordered: 07/16/2024 [facility] Comment on above: Ordered: 07/16/2024 Carbon dioxide, tota l [Moles/volume] in Central venous blood [facility] Creatinine [Mass/volume] in Serum or Plasma [facility] End: 11-14-2024 DBT Breast - bilateral screening NEL SCREENING W NURIA Radiology Routine Encounter for screening mammogram for breast cancer 1 Occurrences starting 10/16/2023 until 11/14/2024 [facility] Work Phone: Comment on above: 1 Occurrences starting 10/16/2023 until 11/14/2024 End: 11-27-2024 DBT Breast - bilateral screening NEL SCREENING W NURIA Radiology Routine Encounter for screening mammogram for malignant neoplasm of breast 1 Occurrences starting 10/29/2023 until 11/27/2024 [facility] Work Phone: Comment on above: 1 Occurrences starting 10/29/2023 until 11/27/2024 DBT Breast - bilateral screening NEL SCREENING W NURIA Radiology Routine Encounter for screening mammogram for breast cancer 11/21/2023 9:47 AM EDT [facility] Work Phone: End: 04-02-2025 DBT Breast - bilateral screening NEL SCREENING W NURIA Radiology Routine Encounter for screening mammogram for breast cancer 1 Occurrences starting 03/03/2024 until 04/02/2025 [facility] Work Phone: Comment on above: 1 Occurrences starting 03/03/2024 until 04/02/2025 Glucose [Mass/volume ] in Serum or Plasma [facility] H/O: section History of [address] [facility] History of colonoscopy History of colonoscopy [facility] Insertion intrauterine device iud INSERT INTRAUTERINE DEVICE Procedures Routine Abnormal uterine bleeding (AUB) Adenomyosis of uterus Ordered: 11/21/2023 [facility] Work Phone: Comment on above: Ordered: 11/21/2023 End: 08-17-2023 NEL SCREENING W NURIA NEL SCREENING W NURIA Radiolo gy Routine Encounter for screening mammogram for breast cancer 1 Occurrences starting 07/18/2022 until 08/17/2023 [facility] Work Phone: Comment on above: 1 Occurrences starting 07/18/2022 until 08/17/2023 End: 10-13-2023 NEL SCREENING W NURIA NEL SCREENING W NURIA Radiolo gy Routine Encounter for screening mammogram for malignant neoplasm of breast 1 Occurrences starting 09/13/2022 until 10/13/2023 [facility] Work Phone: Comment on above: 1 Occurrences starting 09/13/2022 until 10/13/2023 Measurement of renal function [facility] Past history of procedure History of esophagogastroduodenoscopy (EGD) [facility] Patient Education ED Gallstones with Biliary Colic [facility] Work Phone: Patient referral [facility] Work Phone: Potassium measurement [facility] Removal intrauterine device iud REMOVE INTRAUTERINE DEVICE Procedures Routine Malpositioned intrauterine device (IUD), initial encounter Ordered: 11/21/2023 [facility] Comment on above: Ordered: 11/21/2023 Serum chloride measurement [facility] Sodium measurement [facility] Total protein measurement [facility] Urea nitrogen [Mass/volume] in Serum or Plasma [facility] Urine culture [facility] Work Phone: [facility] NEGATED: Highlighted row has been ruled out! Planned Goals not documented [facility] Work Phone: Immunizations Immunization Date Immunization Notes Care Provider Radha krishna 06-07-2022 influenza virus vaccine, unspecified formulation Marleni Freeman MD Work Phone: [facility] 06-14-2021 influenza, injectabl e, quadrivalent, contains preservative Brenda Hernandezar WAREHOUSE DISTRIBUTION SPECIALIST.ARTIFICIAL TEETH INSPECTOR Work Phone: [facility] 06-14-2021 tetanus toxoid, redu belle diphtheria toxoid, and acellular pertussis vaccine, adsorbed Brenda Podlogar WAREHOUSE DISTRIBUTION SPECIALIST.ARTIFICIAL TEETH INSPECTOR Work Phone: [facility] 04-28-2020 Influenza virus vaccine Quita martínez Podlogar MYCOLOGIST-C Work Phone: [facility] Payers Date Payer Category Payer Self-pay [id number] 2019 Private Health Insurance MMO [employer] PPO [id number] 2019 Unknown MMO MMO [employer] [id number] 2019-Present [phone] [address] [place] [address] PPO [id number] 2019 Unknown [id number] 2013 Unknown 1979 Unknown [id number] 1979 Unknown [id number] Unknown [id number] Unknown [id number] Unknown [id number] Unknown [id number] Unknown [id number] Social History Date Type Detail Facility Tobacco smoking consumption unknown [facility] Start: 01-09-2016 End: 05-22-2022 Tobacco smoking status NHIS Never smoked tobacco [facility] Start: 01-09-2016 End: 05-22-2022 Tobacco use and exposure Smokeless tobacco non-user [facility] Start: 07-17-2021 End: 10-15-2024 Alcohol intake Current drinker of alcohol (finding) [facility] Start: 06-12-2021 End: 08-13-2022 History SDOH Alcohol Frequency 3 [facility] Start: 06-12-2021 End: 08-13-2022 History SDOH Alcohol Std Drinks 1 [facility] Start: 04-18-2017 History SDOH Alcohol Comment 2-3 glasses of wine per week, not while [facility] Start: 06-12-2021 End: 08-13-2022 History SDOH Social Connections Phone 5 [facility] Start: 06-12-2021 End: 08-13-2022 History SDOH Social Connections Get Together 2 [facility] Start: 1980 Sex Assigned At Not on file [facility] Start: 1980 Sex Assigned At Female F [facility] Start: 08-13-2022 End: 01-07-2023 Sex Assigned At [facility] Start: 08-13-2022 History SDOH Alcohol Frequency 4 [facility] Start: 08-13-2022 End: 01-07-2023 History of Social function [facility] Active Member of [facility] bs or Organizations Not on file [facility] Are you now , , , , never or living with a partner? [facility] How often to you hav e a drink containing alcohol? 2-3 time sa week [facility] How many standard drinks containing alcohol do you have on a typical day? 1 or 2 [facility] How often do you hav e 6 or more drinks on 1 occasion? Never [facility] Do you feel stress - tense, restless, nervous, or anxious, or unable to sleep at night because your mind is troubled all the time - these days [OSQ] Rather much [facility] (I/We) worried gustavo er (my/our) food would run out before (I/we) got money to buy more. Never true [facility] In the past 12 month s, was there a time when you were not able to pay the mortgage or rent on time? No [facility] Do you belong to any clubs or organizations such as latter-day groups, unions, fraternal or athletic groups, or school groups? Yes [facility] How often to you hav e a drink containing alcohol? 2-4 times a month [facility] How often do you hav e 6 or more drinks on 1 occasion? Less than monthly [facility] Start: 10-28-2017 Tobacco Use Tobacco Use [facility] How many standard drinks containing alcohol do you have on a typical day? 3 or 4 [facility] Do you feel stress - tense, restless, nervous, or anxious, or unable to sleep at night because your mind is troubled all the time - these days [OSQ] To some extent [facility] NEGATED: Highlighted row - - [facility] Work Phone: Medical Equipment Procedure Code Equipment Code Equipment Origin al Text Equipment Identifier Dates Appendectomy, laparoscopic 45mm Vascular Reload FDA Start: 09-09-2020 Appendectomy, laparoscopic 45mm Vascular Reload FDA Start: 09-09-2020 Appendectomy, laparoscopic 45mm Vascular Reload FDA Start: 09-09-2020 Appendectomy, laparoscopic 45mm Vascular Reload FDA Start: 09-09-2020 Appendectomy, laparoscopic 45mm Vascular Reload FDA Start: 09-09-2020 Appendectomy, laparoscopic 45mm Vascular Reload FDA Start: 09-09-2020 Functional Status Date Assessment Result Facility NEGATED: Highlighted row Functional performance Functional status health issues are not documented Disease [facility] Work Phone: Mental Status Date Assessment Result Facility NEGATED: Highlighted row Cognitive function [Interpretation] Cognitive status health issues are not documented Disease [facility] Work Phone: Clinical Notes 04-18-2017 to 01-04-2025 Note Date & Type Note Facility 01-04-2025 Evaluation note Diagnosis Onset Date Resolution Abnormal LFTs acute January 04, 2 025 10:32am Cholelithiases acute January 04, 2025 10:32am Common bile duct dilatation acute January 04, 2025 10:32am Right upper quadrant abdominal pain acute January 04, 2025 10:32am Abdominal pain, epigastric inactive January 04, 2025 10:32am [facility] Work Phone: [phone]) 215-945706-05-2025 History of Present illness Narrative* Brenda Roy APRN.CNP - 12/31/2024 9:00 AM EDT Patient was late to appointment. Asked to wait to be seen however she as unable to wait. Brenda Roy APRN.CNP documented [facility] NoteHNO ID: [id number] Author: BRENDA ROY APRN.CNP Service: ? Author Type: Nurse Practitioner Type: Progress Notes Filed: 12/31/2024 10:27 Note Text: Patient was late to appointment. Asked to wait to be seen however she as unable to wait. [facility] Telephone encounter Note* Telephone Encounter - Suzanna Ackerman LPN - 12/29/2024 2:37 PM EDT Patient notified [facility]06-03-2025 Miscellaneous Notes* Telephone Encounter - Suzanna Ackerman LPN - 12/29/2024 2:37 PM EDT Patient notified * Telephone Encounter - Marleni Almonte MD - 12/29/2024 1:18 PM EDT Does not need follow up for Cyst unless significant pain. Will review concerns next visit. * Telephone Encounter - Doris Michele RN - 12/29/2024 12:46 PM EDT Care everywhere updated and 12/28/24 [facility] ER records available to review there. Pelvic u/s result copied below. Doris Michele RN US/Transvaginal Non- IMPRESSION: 4.6 x 3.2 cm large cyst within the right ovary. No acute ovarian torsion. IUD noted within the uterus. documented [facility] Telephone encounter Note * Telephone Encounter - Marleni Almonte MD - 12/29/2024 1:18 PM EDT Does not need follow up for Cyst unless significant pain. Will review concerns next visit. [facility]06-03-2025 Telephone encounter Note* Telephone Encounter - Doris Michele RN - 12/29/2024 12:46 PM EDT Care everywhere updated and 12/28/24 [facility] ER records available to review there. Pelvic u/s result copied below. Doris Michele RN US/Transvaginal Non- IMPRESSION: 4.6 x 3.2 cm large cyst within the right ovary. No acute ovarian torsion. IUD noted within the uterus. [facility]06-02-2025 Radiology Diagnostic study note [facility] Imaging Services [address] [place], [place] [id number] Transvaginal Non- MR#: [id number] Acct: [id number] Name: JENNIFER MANNING Rep #: [id number] : 1980 F 44 From: Ana Valenzuela MD PCP: NATHAN WatermanC Status: REG E R Study:Transvaginal Non- Date of Exam: 12/28/24 Exam# [id number] Ordering Dr: Moises Cooper DO PROCEDURE: TRANSVAGINAL NON- 12/28/2024 REASON FOR EXAM: HYPODENSE LESION IN THE RIGHT POSTERIOR PELVIS TECHNIQUE: Transvaginal pelvic ultrasound COMPARISON: Same day CT. FINDINGS: Uterus is retroverted and measures 6.4 x 5.3 x 3.6 cm. No fibroids are noted. Endometrial stripe thickness is 3 mm and is hyperechoic. Nabothian cysts are noted. IUD is noted at the midline. Right ovary measures 5.9 x 4.4 x 3.2 cm and left ovary measures 3.6 x 2.1 x 1.5 cm. There is normalvascular flow within bilateral ovaries. 4.6 x 3.2 x 2.5 cm cyst within the right ovary. No free fluid is noted within the cul-de-sac. US/Transvaginal Non- IMPRESSION: 4.6 x 3.2 cm large cyst within the right ovary. No acute ovarian torsion. IUD noted within the uterus. Reading Location: [id number] CC: MYCOLOGISTCarrie Roy; Dr. Moises Mtz DO Cert Occupational Therapy Asst: Signed [facility]06-02-2025 Radiology Diagnostic study note [facility] Imaging Services [address] [place] [address] Gallbladder MR#: [id number] Acct: [id number] Name: JENNIFER MANNING Rep #: [id number] : 1980 F 44 From: Rosa Arauz MD PCP: Brenda Roy MYCOLOGISTKirstieC Status: REG E R Study:Gallbladder Date of Exam: 12/28/24 Exam# [id number] Ordering Dr: Moises Cooper DO PROCEDURE: GALLBLADDER 12/28/2024 REASON FOR EXAM: MILD INTRAHEPATIC AND EXTRAHEPATIC BILIARY DUCTAL COMPARISON: CT abdomen and pelvis 12/28/2024 FINDINGS: Liver: Mild diffuse increase in echogenicity relative to the right kidney. Gallbladder: The gallbladder measures 7.2 cm in length and contains shadowing echogenic stones resulting in a wall echo shadow sign. The gallbladder wall measures 0.4 cm in thickness. No significant pericholecystic fluid. Sonographic Kamara's sign is negative per technologist report. Common bile duct: Slightly dilated measuring 7 mm. Pancreas: Visualized portions are unremarkable. The distal body and tail are obscured by bowel gas. Right kidney: Unremarkable measuring 11.0 x 5.6 x 6.1 cm. US/Gallbladder IMPRESSION: 1. Cholelithiasis, with additional findings which are equivocal for acute cholecystitis. There is mild wall thickening without pericholecystic fluid, and negative sonographic Kamara's sign. Consider Surgical consultation if there is persistent clinical concern. 2. Mildly dilated common bile duct, which measures 7 mm. 3. Findings suggestive of mild hepatic steatosis. Reading Location: [id number] CC: KHADIJAH Roy; Dr. Moises Mtz DO ~ Cert Occupational Therapy Asst: Signed [facility]06-02-2025 Radiology Diagnostic study note [facility] Imaging Services [address] [place] [id number] Abdomen/Pelvis W IV Cont ONLY MR#: [id number] Acct: [id number] Name: JENNIFER MANNING Rep #: [id number] : 1980 F 44 From: Rosa Arauz MD PCP: KHADIJAH Waterman Status: REG E R Study:Abdomen/Pelvis W IV Cont ONLY Date of E xam: 12/28/24 Exam# [id number] Ordering Dr: Moises Cooper DO PROCEDURE: ABDOMEN/PELVIS W IV CONT ONLY 12/28/2024 REASON FOR EXAM: HISTORY OF CROHN'S, EPIGASTRIC ABDOMINAL PAIN TECHNIQUE: Abdomen and pelvis CT with intravenous contrast. Coronal and Sagittal reconstruction series were provided. PATIENT PREPARATION: Per protocol CONTRAST: 95 mL Isovue 370 One or more dose reduction techniques were used (e.g., Automated exposure control, adjustment of the mA and/or kV according to patient size, use of iterative reconstruction technique. RADIATION DOSE SUMMARY: CTDlvol: 16.3 mGy DLP: 917 mGycm COMPARISON: CT abdomen and pelvis on 09/09/2020 FINDINGS: Lung bases: Unremarkable Liver: Mild intrahepatic biliary ductal dilatation. Gallbladder: There are punctate hyperdensities within the gallbladder near the fundus. No significant wall thickening. The common bile duct measures 8 mm in diameter. Spleen: Normal size. Pancreas: Normal size without evidence of mass surrounding inflammation or ductal dilation. Adrenals: Unremarkable Kidneys: No hydronephrosis or stone. Bladder: Collapsed, limiting evaluation Reproductive Organs: Retroverted uterus, containing an intrauterine device. Bowel: No obstruction or significant inflammation. Prominent colonic stool burden. Appendix: Surgically absent. Lymph nodes: No significant lymphadenopathy. Vasculature: Unremarkable Peritoneum / Retroperitoneum: Round hypodensity in the right posterior pelvis measuring slightly above simple fluid density and up to 4.4 cm in size. Bones: Bone island in the right iliac wing. Degenerative changes of the spine. CT/Abdomen/Pelvis W IV Cont ONLY IMPRESSION: 1. No definite evidence of an acute intra-abdominal abnormality. There is a prominent colonic stoolburden suggestive of constipation. 2. Round hypodensity in the right posterior pelvis measuring up to 4.4 cm and slightly above simplefluid density, which may represent a cystic lesion or free fluid. Consider pelvic ultrasound for furtherevaluation. 3. Mild intrahepatic and extrahepatic biliary ductal dilatation, with questionable tiny gallstones.Correlate with laboratory analysis and consider GI referral. Reading Location: [place] CC: KHADIJAH Velezlogchris; Dr. Moises Dewitt-DO Jacinta ~ Cert Occupational Therapy Asst: Signed [facility]06-02-2025 Radiology Diagnostic study note [facility] Imaging Services [address] [place] [address] Chest PA and Lateral MR#: [id number] Acct: [id number] Name: JENNIFER MANNING Rep #: [id number] : 1980 F 44 From: Rosa Arauz MD PCP: Brenda Roy NP-C Status: REG E R Study:Chest PA and Lateral Date of Exam: 12/28/24 Exam# [id number] Ordering Dr: Moises Cooper DO PROCEDURE: CHEST PA AND LATERAL 12/28/2024 REASON FOR EXAM: EPIGASTRIC ABDOMINAL PAIN TECHNIQUE: Frontal and lateral views of the chest. COMPARISON: Chest radiograph on 06/04/2021 FINDINGS: Hardware: None Heart: The heart size is normal. Mediastinum: The mediastinal contour is unremarkable. Lungs: The lungs are clear. No pleural effusion. Bones: The bones are unremarkable. RAD/Chest PA and Lateral IMPRESSION: No acute cardiopulmonary abnormality. Reading Location: [id number] CC: MYCOLOGIST-C Brenda Roy; Dr. Moises Mtz DO ~ Cert Occupational Therapy Asst: Signed [facility]04-01-2025 Telephone encounter Note* Telephone Encounter - Mirian Olguin RN - 10/27/2024 1:23 PM EDT Left message to call office. Mirian Olguin RN [facility]04-01-2025 Miscellaneous Notes* Telephone Encounter - Mirian Olguin RN - 10/27/2024 1:23 PM EDT Left message to call office. Mirian Olguin RN * Addendum Note - Marleni Almonte MD - 10/27/2024 1:12 PM EDTAddended by: MARLENI FREEMAN on: 10/27/2024 01:12 PM Modules accepted: Orders * Telephone Encounter - Marleni Almonte MD - 10/27/2024 1:12 PM EDT Please let patient know her Previous meds ordered, thank you * Telephone Encounter - Michael Wheeler MA - 10/27/2024 8:52 AM EDT Received PA request for Zepbound. Submitted and received immediate response that it is not covered by patients plan. Patient notified. Michael Wheeler MA documented in this encounterS[facility]04-[facility]-2025 Note* Addendum Note - Marleni Almnote MD - 10/27/2024 1:12 PM EDTAddended by: MARLENI FREEMAN on: 10/27/2024 01:12 PM Modules accepted: Orders [facility]04-01-2025 Telephone encounter Note* Telephone Encounter - Marleni Almonte MD - 10/27/2024 1:12 PM EDT Please let patient know her Previous meds ordered, thank you [facility]04-01-2025 Telephone encounter Note* Telephone Encounter - Michael Wheeler MA - 10/27/2024 8:52 AM EDT Received PA request for Zepbound. Submitted and received immediate response that it is not covered by patients plan. Patient notified. Michael Wheeler MA [facility]03-20-2025 Instructions* Patient Instructions* Marleni Almonte MD - 10/15/2024 10:23 AM EDT Images from the original note were not included. TIRZEPATIDE (MOUNJARO/ZEPBOUND) Tirzepatide (Mounjaro) is a new combination drug (mimics 2 gut hormones, GLP1 and GIP) which has demonstrated superior weight loss >20% body wt loss after 72 week randomized controlled study. Mounjaro is approved for Diabetes and Zepbound is approved for treatment of obesity or overweight with co-morbidities and for obstructive sleep apnea. Tirzepatide delays gastric emptying and has the potential to alter absorption of oral medications. This is important in patients taking narrow therapeutic index drugs or drugs that need a minimum blood level for efficacy. If you are taking oral contraceptives switch to a non-oral contraceptive method or add a barrier contraceptive method for 4 weeks after initiation of tirzepatide and for 4 weeks after each dose escalation. Video Instructions for Injecting Mounjaro: https://www.youInstrumentLifeube.com/watch?v=nxnhBdyTSZ0 Savings Card: https://www.MENABANQER/savings-resources Link to Director Of Recreation Therapy Website [employer] Medication Guide: https://pi.Splice.Laura Sapiens/us/yzslkjhq-xi-zl.pdf?s=mg Written pen instructions: https://uspl.Splice.com/mounjaro/mounjaro.html#ug0 Tirzepatide: Patient drug information What is Mounjaro? Mounjaro is an injectable prescription medicine that is used along with diet and exercise to improve blood sugar (glucose) in adults with type 2 diabetes mellitus. It is not known if Mounjaro can be used in people who have had inflammation of the pancreas (pancreatitis). Mounjaro is not for use in people with type 1 diabetes. It is not known if Mounjaro is safeand effective for use in children under 18 years of age. It works in multiple ways. It helps: - THE BODY RELEASE INSULIN WHEN BLOOD SUGAR IS HIGH - THE BODY REMOVE EXCESS SUGAR FROM THE BLOOD - STOP THE LIVER FROM MAKING AND RELEASING TOO MUCH SUGAR - REDUCE HOW MUCH FOOD IS EATEN - SLOW DOWN HOW QUICKLY FOOD LEAVES THE STOMACH. THIS LESSENS OVER TIME. You can learn about possible side effects of Mounjaro here. Select Safety Information Changes in vision. Tell your healthcare provider if you have changes in vision during treatment with Mounjaro PURPOSE AND SAFETY SUMMARY WITH WARNINGS Important Facts About Mounjaro ([id number]). It is also known as tirzepatide. Mounjaro is an injectable prescription medicine for adults with type 2 diabetes used along with diet and exercise to improve blood sugar (glucose). It is not known if Mounjaro can be used in people who have had inflammation of the pancreas (pancreatitis). Mounjaro is not for use in people with type 1 diabetes. It is not known if Mounjaro is safeand effective for use in children under 18 years of age. Warnings Mounjaro may cause tumors in the thyroid, including thyroid cancer. Watch for possible symptoms, such as a lump or swelling in the neck, hoarseness, trouble swallowing, or shortness of breath. If youhave a symptom, tell your healthcare provider. Do not use Mounjaro if you or any of your family have ever had a type of thyroid cancer called medullary thyroid carcinoma (MTC). Do not use Mounjaro if you have Multiple Endocrine Neoplasia syndrome type 2 (MEN 2). Do not use Mounjaro if you are allergic to tirzepatide or any of the ingredients in Mounjaro. Mounjaro may cause serious side effects, including: Inflammation of the pancreas (pancreatitis). Stop using Mounjaro and call your healthcare provider right away if you have severe pain in your stomach area (abdomen) that will not go away, with or without vomiting. You may feel the pain from your abdomen to your back. Low blood sugar (hypoglycemia). Your risk for getting low blood sugar may be higher if you use Mounjaro with another medicine that can cause low blood sugar, such as a sulfonylurea or insulin. Signs and symptoms of low blood sugar may include dizziness or light-headedness, sweating, confusion or drowsiness, headache, blurred vision, slurred speech, shakiness, fast heartbeat, anxiety, irritability, or mood changes, hunger, weakness and feeling jittery. Serious allergic reactions. Stop using Mounjaro and get medical help right away if you have any symptoms of a serious allergic reaction, including swelling of your face, lips, tongue or throat, problems breathing or swallowing, severe rash or itching, fainting or feeling dizzy, and very rapid heartbeat. Kidney problems (kidney failure). In people who have kidney problems, diarrhea, nausea, and vomiting may cause a loss of fluids (dehydration), which may cause kidney problems to get worse. It is important for you to drink fluids to help reduce your chance of dehydration. Severe stomach problems. Stomach problems, sometimes severe, have been reported in people who use Mounjaro. Tell your healthcare provider if you have stomach problems that are severe or will not go away. Changes in vision. Tell your healthcare provider if you have changes in vision during treatment with Mounjaro. Gallbladder problems. Gallbladder problems have happened in some people who use Mounjaro. Tell yourhealthcare provider right away if you get symptoms of gallbladder problems, which may include pain in your upper stomach (abdomen), fever, yellowing of skin or eyes (jaundice), and derick-colored stools. Common side effects The most common side effects of Mounjaro include nausea, diarrhea, decreased appetite, vomiting, constipation, indigestion, and stomach (abdominal) pain. These are not all the possible side effects of Mounjaro. Talk to your healthcare provider about any side effect that bothers you or doesn't go away. Tell your healthcare provider if you have any side effects. You can report side effects at 1-315-XMV-3647 or www.fda.gov/medwatch. Before using Your healthcare provider should show you how to use Mounjaro before you use it for the first time. Before you use Mounjaro, talk to your healthcare provider about low blood sugar and how to manage it. Review these questions with your healthcare provider: Do you have other medical conditions, including problems with your pancreas or kidneys, or severe problems with your stomach, such as slowed emptying of your stomach (gastroparesis) or problems digesting food? Do you take other diabetes medicines, such as insulin or sulfonylureas? Do you have a history of diabetic retinopathy? Are you or plan to become or or plan to breastfeed? It is not knownif Mounjaro will harm your unborn baby. Do you take control pills by mouth? These may not work as well while using Mounjaro. Your healthcare provider may recommend another type of control when you start Mounjaro or when you increase your dose. Do you take any other prescription medicines or wgmx-eiv-riqkczj drugs, vitamins, or herbal supplements? How to take Read the Instructions for Use that come with Mounjaro. Use Mounjaro exactly as your healthcare provider says. Mounjaro is injected under the skin (subcutaneously) of your stomach (abdomen), thigh, or upper arm. Use Mounjaro 1 time each week, at any time of the day. Do not mix insulin and Mounjaro together in the same injection. If you take too much Mounjaro, call your healthcare provider or seek medical advice promptly. Learn more For more information, call 1-776-LydoyLf ( ) or go to www.MENABANQER. This information does not take the place of talking with your healthcare provider. Be sure to talk to your healthcare provider about Mounjaro and how to take it. Your healthcare provider is the best person to help you decide if Mounjaro is right for you. Mounjaro and its delivery device base are trademarks owned or licensed by [employer], its subsidiaries, or affiliates. KALYAN MIDDLE[employer] NOVEMBER2021 Access LookAcross Online for additional drug information, tools, and databases. Copyright 3089-4544 [employer]. All rights reserved. Contributor Disclosures (For additional information see Tirzepatide: Drug information) You must carefully read the Consumer Information Use and Disclaimer below in order to understand and correctly use this information. Brand Names: [place] Mounjaro Warning This drug has been shown to cause thyroid cancer in some animals. It is not known if this happens in humans. If thyroid cancer happens, it may be deadly if not found and treated early. Call your doctor right away if you have a neck mass, trouble breathing, trouble swallowing, or have hoarseness that will not go away. Do not use this drug if you have a health problem called Multiple Endocrine Neoplasia syndrome type2 (MEN 2), or if you or a family member have had thyroid cancer. Have your blood work checked and thyroid ultrasounds as you have been told by your doctor. What is this drug used for? It is used to lower blood sugar in patients with high blood sugar (diabetes). What do I need to tell my doctor BEFORE I take this drug? If you are allergic to this drug; any part of this drug; or any other drugs, foods, or substances. Tell your doctor about the allergy and what signs you had. If you have type 1 diabetes. Do not use this drug to treat type 1 diabetes. If you have ever had pancreatitis. If you have stomach or bowel problems. This is not a list of all drugs or health problems that interact with this drug. Tell your doctor and pharmacist about all of your drugs (prescription or OTC, natural products, vitamins) and health problems. You must check to make sure that it is safe for you to take this drug with all of your drugs and health problems. Do not start, stop, or change the dose of any drug withoutchecking with your doctor. What are some things I need to know or do while I take this drug? Tell all of your health care providers that you take this drug. This includes your doctors, nurses,pharmacists, and dentists. Wear disease medical alert ID (identification). Follow the diet and workout plan that your doctor told you about. Check your blood sugar as you have been told by your doctor. Do not drive if your blood sugar has been low. There is a greater chance of you having a crash. control pills may not work as well to prevent . If you take control pills, youmay need to switch to another type of hormone-based control like a vaginal ring if your doctor tells you to. If another type of hormone-based control is not an option, use some other kindof control also, like a condom. Do this for 4 weeks after starting this drug and for 4 weeks each time the dose is raised. This drug may prevent other drugs taken by mouth from getting into the body. If you take other drugs by mouth, you may need to take them at some other time than this drug. Talk with your doctor. It may be harder to control blood sugar during times of stress such as fever, infection, injury, orsurgery. A change in physical activity, exercise, or diet may also affect blood sugar. Talk with your doctor before you drink alcohol. Do not share with another person even if the needle has been changed. Sharing your tray or pen may pass infections from one person to another. This includes infections you may not know you have. If you cannot drink liquids by mouth or if you have upset stomach, throwing up, or diarrhea that does not go away; you need to avoid getting dehydrated. Contact your doctor to find out what to do. Dehydration may lead to new or worse kidney problems. A severe and sometimes deadly pancreas problem (pancreatitis) has happened with other drugs like this one. Tell your doctor if you are , plan on getting , or are breast- feeding. You will need to talk about the benefits and risks to you and the baby. What are some side effects that I need to call my doctor about right away? WARNING/CAUTION: Even though it may be rare, some people may have very bad and sometimes deadly side effects when taking a drug. Tell your doctor or get medical help right away if you have any of thefollowing signs or symptoms that may be related to a very bad side effect: Signs of an allergic reaction, like rash; hives; itching; red, swollen, blistered, or peeling skin with or without fever; wheezing; tightness in the chest or throat; trouble breathing, swallowing, ortalking; unusual hoarseness; or swelling of the mouth, face, lips, tongue, or throat. Signs of kidney problems like unable to pass urine, change in how much urine is passed, blood in the urine, or a big weight gain. Signs of gallbladder problems like pain in the upper right belly area, right shoulder area, or between the shoulder blades; yellow skin or eyes; fever with chills; bloating; or very upset stomach or throwing up. Signs of a pancreas problem (pancreatitis) like very bad stomach pain, very bad back pain, or very bad upset stomach or throwing up. Dizziness or passing out. A fast heartbeat. Change in eyesight. Low blood sugar can happen. The chance may be raised when this drug is used with other drugs for diabetes. Signs may be dizziness, headache, feeling sleepy or weak, shaking, fast heartbeat, confusion, hunger, or sweating. Call your doctor right away if you have any of these signs. Follow what you have been told to do for low blood sugar. This may include taking glucose tablets, liquid glucose, or some fruit juices. What are some other side effects of this drug? All drugs may cause side effects. However, many people have no side effects or only have minor sideeffects. Call your doctor or get medical help if any of these side effects or any other side effects bother you or do not go away: Constipation, diarrhea, stomach pain, upset stomach, throwing up, or feeling less hungry. Heartburn. These are not all of the side effects that may occur. If you have questions about side effects, call your doctor. Call your doctor for medical advice about side effects. You may report side effects to your national health agency. How is this drug best taken? Use this drug as ordered by your doctor. Read all information given to you. Follow all instructionsclosely. It is given as a shot into the fatty part of the skin on the top of the thigh, belly area, or upperarm. If you will be giving yourself the shot, your doctor or nurse will teach you how to give the shot. Keep taking this drug as you have been told by your doctor or other health care provider, even if you feel well. Take the same day each week. Move site where you give the shot each time. Take with or without food. Wash your hands before and after use. Do not use if the solution is leaking or has particles. This drug is colorless to a faint yellow. Do not use if the solution changes color. If you are also using insulin, you may inject this drug and the insulin in the same area of the body but not right next to each other. Do not mix this drug in the same syringe with insulin. Do not move this drug from the pen to a syringe. Each pen is for one use only. Throw away any part of the used pen after the dose is given. Throw away needles in a needle/sharp disposal box. Do not reuse needles or other items. When the box is full, follow all local rules for getting rid of it. Talk with a doctor or pharmacist if you have any questions. What do I do if I miss a dose? If it is within 4 days after the missed dose, take the missed dose and go back to your normal day. If it has been more than 4 days since the missed dose, skip the missed dose and go back to your normal day. Do not take 2 doses at the same time or extra doses. How do I store and/or throw out this drug? Store in a refrigerator. Do not freeze. Do not use if it has been frozen. If needed, each pen may be stored at room temperature for up to 21 days. If you store at room temperature, throw away any part not used after 21 days. Protect from heat. Store in the original container to protect from light. Keep all drugs in a safe place. Keep all drugs out of the reach of children and pets. Throw away unused or drugs. Do not flush down a toilet or pour down a drain unless you are told to do so. Check with your pharmacist if you have questions about the best way to throw out drugs. There may be drug take-back programs in your area. General drug facts If your symptoms or health problems do not get better or if they become worse, call your doctor. Do not share your drugs with others and do not take anyone else's drugs. Some drugs may have another patient information leaflet. If you have any questions about this drug,please talk with your doctor, nurse, pharmacist, or other health care provider. If you think there has been an overdose, call your poison control center or get medical care right away. Be ready to tell or show what was taken, how much, and when it happened. Last Reviewed [id number] Consumer Information Use and Disclaimer This generalized information is a limited summary of diagnosis, treatment, and/or medication information. It is not meant to be comprehensive and should be used as a tool to help the user understand and/or assess potential diagnostic and treatment options. It does NOT include all information about conditions, treatments, medications, side effects, or risks that may apply to a specific patient. Itis not intended to be medical advice or a substitute for the medical advice, diagnosis, or treatment of a health care provider based on the health care provider's examination and assessment of a patient's specific and unique circumstances. Patients must speak with a health care provider for complete information about their health, medical questions, and treatment options, including any risks or benefits regarding use of medications. This information does not endorse any treatments or medications as safe, effective, or approved for treating a specific patient. [employer] and its affiliatesdisclaim any warranty or liability relating to this information or the use thereof. The use of thisinformation is governed by the Terms of Use, available at https://www.[employer]ctl[employer].com/en/know/fxjmobpa-aprcbrwdiwdax-wmvbl. Why Is Protein So Important for Weight loss? consuming more protein not only reduces body weight but enhances body composition by decreasing fatmass while preserving fat-free mass During weight loss phase protein consumption (with normal kidney function) should be 1-1.6g proteinper Kilogram of body weight (1kg=2.2lbs) On average Women need to Aim for a minimum 90g protein per day Consuming higher protein can also prevent weight regain after weight loss Protein consumption increases hormones responsible for satiety (feeling full)- these include Gut hormones like Glucagon-like peptide-1 (GLP-1), Cholecystokinin (CCK), Peptide Tyrosine-Tyrosine (PYY) and decreasing the Gut hormone responsible for causing hunger Ghrelin Protein has an increased thermogenesis effect of food- which means it take more calories to break down protein when consumed compared to carbohydrates or fats Protein also prevents a losing lean mass during weight loss (lose more fat and preserve fat free mass) which helps to increase resting energy expenditure (resting metabolic rate) Every pound of muscle so ~ 6 kcal per pound/day vs fat so ~ 2kcal per pound/day Carbohydrates - Why do You Crave Them? Eating too many refined carbohyrdates (sugar beverages, pastries, bread, pizza) which raises your blood glucose levels and therefore releasing insulin which in turn causes increase in hunger Carbohydrates suppress Ghrelin quickly but does not maintain the suppression for very long therefore hunger returns more quickly Consuming carbohydrates leads to a release of Dopamine feel good hormone in our brain So how do you Curb these cravings? Eating Whole Foods with more fiber - High fiber carbs are absorbed and digested slowly so it does not impact blood sugar levels as much and will help in making you feel carroll for longer; fiber also is healthy for your gut bacteria and can help with constipation. Remember- carbohydrates are not the enemy but know what a proper serving size is, choose nutritiouscarbohydrates and space them out between meals. Always- eat your protein first followed by your non starchy vegetables followed by your carbohydrates- it will help your body with your glucose and insulin regulation Processed Foods vs Whole Foods- Impact on Weight: People who eat Ultra Processed food tend to consume about 500 calories more per day Ultra Processed foods are considered Calorie Dense so when a person feels full they have typically already over eaten and consumed more calories Whole Foods (unprocessed foods) tend to be more more filling and more Nutrient Dense Unprocessed foods can be more expensive and not realistic for everyone however when you have the choice to consume unprocessed vs Ultra processed foods always pick unprocessed. Why can't people stop eating Ultra Processed foods? They are economical and optimized for taste by [employer] - they are designed to make you want to keep eating them- they feed common cravings and bypass the mechanisms that tell your brain you are full Benefits of eating Whole Foods and cutting out Ultra Processed Foods Increased concentration and focus (decreased brain fog), improved mood, better sleep, Decrease in fatigue, improvement in gut health, decreased inflammation, Likely WEIGHT LOSS A diet that leaves you feeling full and satisfied over the course of the day leaves less room for wondering about whether you should have a snack when you re bored. 1. Eat regularly throughout the day Try to spread out your calorie intake throughout a regular meal and snack schedule. This may keep you more full and less hungry than eating the same number of calories on a less regular meal schedule(5Trusted Source). If you re feeling content with your food choices for the day, you might be less likely to reach fora snack when you re bored. What s more, knowing that you plan to eat a meal or snack in the next few hours could be motivationto hold back from eating until then. The same meal schedule doesn t work for everyone. Some people like to have three meals and a few snacks each day, while others may prefer to have more or less. Finding a routine that works for you and sticking with it seems to matter more than exactly how many meals and snacks you have each day. 2. Don t restrict your favorite foods If you tend to crave or reach for certain foods when you re bored, you might be tempted to completely stop eating those foods to remove the temptation. However, for some people, research shows this approach might be counterproductive. If you find you re more susceptible to food cravings, depriving yourself of certain foods might make you crave them more in the short term (6Trusted Source, 7Trusted Source, 8Trusted Source). Rather than eliminating the foods you crave, try eating them regularly but in moderation. This might help reduce your urge to snack on those foods when you re bored. 3. Have nutritious, filling snacks When you ve just had a filling meal or snack, you may be less likely to associate feeling bored with wanting to eat. Certain foods are more filling than others. Some particularly filling foods include: Protein: eggs, fish, meat, yogurt, cottage cheese Fiber-rich foods: oatmeal, quinoa, whole grains, legumes, popcorn Foods high in water: fruits, vegetables, soups 4. Eat from a plate Sometimes it s hard to distinguish between hunger and boredom. Ocassationally, there may still be times when you reach for a snack when you re bored. To avoid overeating and letting boredom get the best of your appetite in those moments, portion your snacks onto a plate or serving dish rather than eating them directly from the bag or container. Visual cues, such as the plate size, container size, and even the type of dish you eat from, can all influence how much you eat (17Trusted Source, 18Trusted Source, 19Trusted Source). SUMMARY Eating a healthy diet comprising regular meals, nutritious and filling snacks, and appropriate portion sizes may be more satisfying and thus make it less tempting to eat when you re feeling bored. 5-8. Tune in to your emotions Researchers know that your emotions and mood often influence when, what, and how much you eat. Experts have also suggested that how well you regulate your emotions can influence boredom eating. Poor emotional regulation could potentially lead to an increase in eating when you re feeling bored (22Trusted Source, 23Trusted Source). Practicing self-awareness and developing a better understanding of how your own emotions are influencing your appetite is a great starting place to combat boredom eating. 5. Eat mindfully To be mindful means to be conscious, aware, and focused on the present moment. To eat mindfully means to be aware of your mental and physical states related to food. Some studies have found mindfulness is particularly helpful at helping people reduce eating in response to emotions like boredom (24Trusted Source, 25Trusted Source, 26Trusted Source). Mindful eating is useful in differentiating between boredom and hunger, as it emphasizes paying close attention to your cravings and hunger and fullness cues. 6. Know your hunger signs Being perceptive of your specific hunger and fullness signs may be one of the most effective ways to determine whether you re hungry or bored. When your body is physically hungry and in need of calories for energy, you may notice signs like your stomach growling, a headache, and feelings of weakness or fatigue. On the other hand, when you re experiencing boredom hunger -- or another type of emotional hunger -- you may crave a certain food without any of the traditional signs of physical hunger. 7. Embrace being bored Throughout 2019 and into 2020, people reported feeling bored at higher rates than usual due to the COVID-19 pandemic (27Trusted Source). In certain situations, being bored too often may have detrimental health effects, such as increasedrates of depression and altered eating habits (1Trusted Source, 28Trusted Source). Still, a little boredom is OK and normal to experience from time to time. What s more, research has linked boredom to certain benefits. For example, it may help motivate creativity (29Trusted Source, 30Trusted Source). Trying to prevent boredom or override the feeling by eating and finding other distractions doesn t always work. You might find meaning in the downtime by trying to embrace boredom instead. 8. Take it easy on yourself Remember, it s normal to reach for a snack out of boredom on occasion. When it happens, don t take it as a failure. Rather, use it as a learning experience and opportunity to treat yourself with kindness and compassion. SUMMARY Your mood and emotions play a significant role in psychologically induced hunger like boredom eating. Learning to be aware of your emotions, hunger triggers, and fullness cues can help prevent you from eating because you re bored. 9-11. Understand your environment Much of what you eat is influenced by your environment, and the same goes for when and how much youeat. Here are a few specific ways you can tailor your environment to discourage yourself from boredom eating when the urge strikes. 9. Know your triggers Especially when it comes to psychological types of hunger like boredom eating, external factors often trigger the urge to eat. Identifying the triggers in your life that tend to cause the urge to eat when you re bored is gonzalez to breaking the habit. Some common triggers to be aware of are stress, food availability, and pictures of food. Make notes in a food journal about what you re doing and your environment when you feel the urge toeat. This might help identify -- and stop -- boredom eating patterns. 10. Avoid the urge to eat in front of a screen Eating in front of a screen while you re bored can influence you to overeat when you aren t even hungry. Many people turn to screen-based activities like watching TV or scrolling on their phone when they re feeling bored. Some studies have found that people tend to eat more than they otherwise would when they re distracted or in front of a screen, such as a TV or computer (35Trusted Source, 36Trusted Source, 37TrustedSource). Break associations you might have between eating and screen time by making a point of eating meals at a table -- not in front of the TV -- and putting your phone away while you re dining. Consider replacing mindless eating during screen time with another activity, such as knitting, doodling, or playing with a toy or piece of jewelry, to keep your hands busy while you watch TV. 11. Change your scenery Sometimes all it takes to get your mind off food when you re feeling bored is a little change of scenery. When you re bored and fighting the urge to snack, standing up and moving to a new location -- even if it s just from one room to another -- may be enough to distract your mind from food until the boredom passes. SUMMARY External factors often trigger urges to eat when you re not physically hungry. Identifying the factors in your environment that trigger boredom eating is gonzalez to breaking those habits. 12-13. Mix things up To be bored means that you re feeling uninterested in your current activity. The feeling often occurs when the day has been monotonous or repetitive. The same goes for boredom eating. You may eat simply as a way to escape the regular routines of the day (38Trusted Source, 39Trusted Source). Adding variety to your day keeps things feeling fresh and exciting, and it might fend off boredom eating. 12. Take a walk When you re feeling bored, taking a walk not only provides a distraction from any urges to snack but also physically removes you from food temptations. Sometimes a quick [id number] walk is all it takes to recenter yourself and forget about the urge to snack out of boredom. If you re not able to take a walk, you might find it helpful to take a few minutes to stretch or dobreathing exercises. 13. Make new habits One of the upsides of being bored is that it can drive you to try new things. Next time you feel bored, take a few minutes to think about how you d really like to be spending that time. Is there a new hobby you d like to try or an old book that you never got around to reading? Try to look at boredom as a space for meaningful stimulation in your day. 13 Ways to Stop Eating When You're Bored ([employer]) Creating a Mindful Eating Environment: 10Mindless Eating Solutions If you're looking for easier ways to make healthy changes to your diet and lifestyle, consider these simple mindless eating solutions for staying on-track with nutrition: Serve Salad and Vegetables First. Before bringing out your main dish, serve salad and vegetables first to ensure you're eating enough of this important food group. This strategy will also help you eat less of the rest of your dish which is likely higher in calories, etc. Serve Your Main [facility] on the Stove or Counter. Studies show that we're likely to eat less if our food is placed on the stove or counter rather than right in front of us. Eat on Smaller Plates. Similar to the strategy mentioned above, studies show that you're likely to consume less food if you're eating from a smaller plate. This is likely due to the increase of smaller portion sizes. Turn off Your Television. Watching television as you eat can be highly distracting, and it affects your ability to eat mindfully. For example: you're less likely to notice when you're full, so you might consume excess calories. Keep Mostly Water On-hand. Calories from drinks can add up quickly, especially in fruit juices, alcohol and soft drinks. By minimizing the amounts of those drinks on-hand, you're more likely to consume water when you're thirsty - and water has amazing health benefits! Keep Your Kitchen Organized. An organized refrigerator, counter and cabinet space makes you more likely to find and choose the foods which are healthiest for you. On the contrary, a messy kitchen space may make you more apt to grab the first item you see. Pre-cut Your Fruits and Vegetables. Let's admit it: We're more likely to put off eating produce if we have to go through the burden of cutting it first. Pre-cut fruits and vegetables will eliminate this extra step. Have at Least Six Single Servings of Lean Protein On-hand. This includes lean meats such as turkey and chicken, yogurt, eggs, nuts, beans and legumes. By having plenty of lean protein on-hand, you can better manage your appetite and hunger levels. Keep All Snack Foods in One Inconvenient Cupboard. You're less likely to reach for unhealthy snack foods if they're not all gazing up at you from plain sight! Keep Only a Fruit Bowl on Your Counter. This way, if you're one to grab foods based off of their availability, you'll reach for healthier fruits rather than less healthy snack foods. https://www.obesityaction.org/community/news/community-news/ttbviq-o-zbbflqr-eat ing-environment/ Tips for eating away from home: [employer] video: https://www.[employer]com/watch?v=F3oEHYbJAvM Meals away from home make it harder to control ingredients, calories, and portions. This can be particularly challenging for people with Type 2 diabetes (and for those of us trying to avoid getting this condition). The following tips can help you enjoy eating out without abandoning your efforts to eat well. Ask how the food is prepared. Before you order, ask about ingredients and how the menu selections are prepared. Try to choose dishes made with whole grains, healthy oils, vegetables, and lean proteins. Meat that has been broiled, poached, baked, or grilled is a more health-conscious option than fried foods or dishes prepared with heavy sauces. Look for less. Your eyes are the perfect instrument for sizing up portion sizes. Use your estimating techniques to size up the food on your plate. 1 thumb tip = 1 teaspoon of peanut butter, butter, or sugar 1 finger = 1 oz. of cheese 1 fist = 1 cup cereal, pasta, or vegetables 1 handful = 1 oz. of nuts or pretzels 1 palm = 3 oz. of meat, fish, or poultry Plan on eating half your meal and take the rest home to enjoy for lunch or dinner the next day. Order an extra side of veggies. Non-starchy vegetables, such as green beans, broccoli, asparagus, or summer squash, will help you fill up with low-calorie choices. Think ahead. Learn important nutrition information ahead of time. Most fast-food chains provide calories, sodium, and fat content for their menu items. Check out www.[facility] for a listing of over 50,000 foods, including many restaurant items. You can also visit company-specific websites Dining Out Tips Dining out is tricky. You have less control over ingredients & portions so even when you think you re ordering healthy, it s likely way more calories & less nutrition than a similar meal you d make at home. Research shows people who do best losing weight & keeping it off don t dine out much only 2.5 times out of 21 meals in a week. So, when you do dine out, make sure to use these PRO TIPS to keep your body happy DINE OUT LIKE A PRO 1. RUIN Your Appetite. About 1.5 hrs before you go out, eat something to cut hunger so you don t get to the restaurant & dive head first into the breadbasket. Try a produce + protein snack such as an apple + almonds or celery + sunflower seed butter. 2. Know BEFORE You Go. Do a few minutes of research before you re swept up in a whirlwind of socializing & drinking. This could be as simple as perusing the online menu on your phone on the ride to the restaurant. 3. Order a [employer] BUNDLE. Pair a healthy superfood with a less-healthy craving. It s the only way to honor both your inner health nut and wild child. At a [facility] joint and really want the pulled pork? Get it - but instead of plopping it on a refined grain bun, ask to put it alongside a salad. 4. Limit FLAVORS. Research shows variety stimulates appetite, meaning tasting little bits of many different foods will trigger you to over eat. So if you find yourself facing a tableful of small plates or buffet-style eating, commit to your absolute favorites rather than sampling every option. 5. Entree + ONE. It s often not just the meal that racks up CRAP calories, it s also the add-on apps + drinks + desserts. Focus on your main and skip these extras, or at least just pick your favoriteONE. Smart: Pick an appetizer salad! When [place] researchers gave women a 100-calorie appetizer ofeither a salad or garlic bread, those who had the tiny salad ended up eating 21% less of their maincourse. Why People Diet, Lose Weight and Gain It All Back Plus 4 ways to break the cycle + maintain your weight loss You -- and your diet -- have been firing on all cylinders. The weight is melting off, and you re feeling your best. But then there is that seemingly inevitable backslide, with pound after pound creeping back on despite your best efforts. It s the ultimate Catch-22. But before you beat yourself up, waist cutter and obesity specialist Isaias Hernandez MD, has some welcome news: It s most likely not your fault. Your body is fighting to keep your weight as it was before the dieting, he says. But take heart -- it s possible to win the bautista. What weight set point has to do with it Experts think as many as 80 to 95% of dieters gain back the weight they ve worked so hard to lose. Why? (WHY?!?) Dr. Hernandez says the culprit is your weight set point : the weight your body is programmed to be.Your weight set point is a combination of several factors, including your: Genetics. Hormones. Behavior. Environment. Weight set point and metabolism play for the same team: Your metabolism so energy at a rate thatwill maintain your weight set point, even if that point is heavier than is healthy. Most of the time, weight gain is gradual, and that can raise your set point gradually, too, notes Dr. Hernandez. But certain lifestyle changes can lower it. The perils of yo-yo dieting Beware of the quick-fix, Dr. Hernandez warns. A fad diet won t change your set point. It s just restricting calories, he says. Your body is very efficient. You can successfully lose weight for a while, but at some point, your body simply adjusts to need fewer calories to function. Which means weight loss will eventually stop, unless you start eating even less than your diet calls for. (You can see where this is going.) Your body is also a survivor. As soon as calories drop, it starts doing everything in its power to prevent starvation, including: Ups the hunger hormone: Levels of the satiety hormone leptin (which controls how full you feel) decrease. Meanwhile, levels of the hunger hormone ghrelin increase. You feel hungrier, even after eating a normal meal. Makes you think, Oooh that looks good : Eating fewer calories alters how you think about and perceive food. Research shows dieters become hyper-focused on food and that it even smells and tastes better to them. These effects stick around for the long-term. Remember the television show The Biggest Loser? Contestants still felt the effects of their calorie deprivation six years later, making it harder to keepthe weight off. Research tells us that yo-yo dieting can negatively affect your metabolism, Dr. Hernandez says. It doesn t matter the diet: low-carb, low-fat, ketogenic, whatever. We see rebound weight gain almost every time. How to lose weight without gaining it back To maintain weight loss for good, Dr. Hernandez advises focusing on these four areas: Diet. How can you create a healthy, long-term, [id number]-xd diet? Learn what s healthy -- and what s not. (A county auditor or dietitian can help.) Practice portion control, even when eating healthy foods. Avoid empty calories, but treat yourself once in a while. Don t diet. Instead, focus on forming healthy habits for life. Exercise. Be an equal opportunity manager community: Do both aerobic exercise (three to five times a week) and resistance training (two to three times nonconsecutively each week). Shoot for at least 25 to 35minutes on most days. Exercise works best for staving off weight gain (not jumpstarting weight loss), so recognize that binging on exercise can be just as bad as binging on food. Exercise can make people super hungry, while it makes others tired and inactive, which can negate the activity they did, Dr. Hernandez explains. But it s also important to remember the cardiovascular benefits of exercise, independent of weight loss. Exercise is always good and important, he says. Stress. Stress not only causes some people to eat more, but it also raises levels of the stress hormone cortisol. If you have more cortisol, you end up with higher insulin and lower blood sugar levels, Dr. Hernandez says. (Cue the cravings.) To cope, put down the fork and try meditating or talking to a trusted friend. Sleep. Not getting enough sleep raises cortisol levels, too. It also affects decision-making (read:your ability to stick to healthy habits). Seven to nine hours every night is the magic number you need to help you manage stress. It also helps your body work with you -- and not against you -- when it comes to weight loss. https://[email or web address]/pme-itthld-kbtp-ovwg-pcdlgw-hdv-afhy-cj-mgv-b ack/ Why People Diet, Lose Weight and Gain It All Back - [facility] Why You May Want to Weigh Yourself Every Day At any given moment, an estimated 24% of men and 38% of women in the [place] are trying to lose weight (1Trusted Source). Meanwhile, obesity has skyrocketed and working-age adults are gaining about 2.2 pounds (1 kg) annually, on average (2Trusted Source, 3Trusted Source). Recent studies have shown that daily self-weighing may be a powerful tool for both losing and maintaining weight. However, many people believe that weighing yourself daily contributes to bad mental health and disordered eating habits. So what should you believe? This article sets the record straight on whether you should start weighing yourself daily. Weighing Yourself Daily Helps You Lose More Weight The simple act of self-weighing has received lots of attention and stirred up controversy for years. Some people have even thrown away their scale, claiming that it s a highly misleading weight loss tool that results in bad self-esteem and disordered eating habits (4, 5). However, recent studies generally agree that daily weighing is associated with greater weight loss and less weight regain than less-frequent self-weighing (6Trusted Source, 7, 8, 9). One study showed that participants who weighed themselves daily for six months lost 13 more pounds (6 kg), on average, than those who weighed themselves less frequently (10. What s more, those who weigh themselves daily tend to adopt more favorable weight control behaviors, exercise better restraint toward food and eat impulsively less often (10, 11). Interestingly, adopting healthy weight-related behaviors has been shown to be especially important when people emerge from adolescence into adulthood (12). One study in participants aged 18-25 showed that daily self-weighing resulted in better weight lossthan less-frequent weighing (13). The researchers concluded that daily self-weighing is a particularly valuable self-regulation tool for this age group. Furthermore, another study showed that people who weighed themselves every day ate 347 fewer calories per day than those who did not. After six months, the group that weighed themselves daily ended up losing a whopping 10 times more weight than the control group (14). BOTTOM LINE: Daily self-weighing may cause people to lose more weight and gain less of it back, compared to less-frequent weighing. Daily Weighing May Motivate You and Improve Self-Control Being aware of your weight is a gonzalez factor in successful weight loss. Awareness of your weight trend -- that is, whether your weight is going up or down -- is also important. In fact, weighing yourself more often is linked to weight control, while weighing yourself less often has been associated with weight gain. One study found that participants who weighed themselves less often were more likely to report increased calorie intake and decreased restraint toward food (15). Self-weighing promotes self-regulation and awareness of your weight trend and weight-related behaviors. That s why it generally results in greater weight loss (14). Although the exact number on the scale may be unimportant, monitoring weight loss progress motivates you to keep going and generally improves weight-related behavior and self-control. Also, by being more aware of your weight, you can quickly react to lapses in your progress and makenecessary adjustments to maintain your goal. Since most people are able to sustain a habit of daily self-weighing, the adherence and acceptability of it is generally quite high (16Trusted Source, 17, 18, 19, 20). It s a minor addition to your daily routine that may help you reap major benefits for your weight. BOTTOM LINE: Daily self-weighing helps you maintain awareness of your weight. Monitoring weight loss progress further motivates you to keep going and improves your self-control. Daily Weighing Helps You Keep the Weight Off Frequent self-weighing has been shown to be a great way to prevent weight gain in the long-term (15, 2, 22, 23). One study investigated how much self-weighing frequency predicted weight manager change two years in working adults (24Trusted Source). It found that there was a significant link between self-weighing frequency and weight change. In normal-weight individuals, daily weighing resulted in a slight weight loss, while those who weighed themselves monthly gained 4.4 pounds (2 kg), on average. However, the largest difference was in overweight individuals. Those who weighed themselves daily lost 10 pounds (4.4 kg), while those who weighed themselves monthly gained 2.2 pounds (1 kg), on average (24). Another study came to a similar conclusion, showing that self-weighing was a significant predictor of body weight over time. Participants lost an extra pound (0.45 kg) of body weight for every 11 days they self-weighed (25). The main reason why this is so effective is that consistent self-weighing allows you to catch weight gain before it escalates and make the necessary changes to prevent more weight gain (15). BOTTOM LINE: Daily weighing may help prevent long-term weight gain, especially in overweight people. Weighing Yourself Daily Is Not as Bad as People Think Not so long ago, frequent self-weighing was thought to be damaging to your mental health. This notion still exists today. Self-weighing is claimed to have negative effects on your mood by continuously reinforcing that your body size is not ideal or appropriate, resulting in an increased risk of developing an eating disorder (4Trusted Source, 5Trusted Source). Although this may be true in a small group of people, most studies have repeatedly come to a different conclusion (9Trusted Source, 26Trusted Source, 27Trusted Source). The available research suggests there is very little evidence that frequent self-weighing is a cause of negative mood or body dissatisfaction, especially as part of a weight loss program (8Trusted Source, 12Trusted Source, 14Trusted Source, 26Trusted Source, 28Trusted Source, 29Trusted Source). In fact, studies indicate that frequent self-weighing may increase body satisfaction, rather than decrease it (9Trusted Source). That said, there is a group of people who may develop a negative body image, low self-esteem or undesirable eating behaviors as a result of daily self-weighing (30Trusted Source). If you find that daily self-weighing causes you to have bad feelings about yourself or your eating behaviors, you should find other methods to measure your progress. BOTTOM LINE: Most studies do not link frequent self-weighing to negative mood or body dissatisfaction. Some evenassociate them with higher body satisfaction. How to Weigh Yourself for Best Results The best time to weigh yourself is right after you wake up, after going to the bathroom and before you eat or drink. Your weight tends to fluctuate less in the morning than later in the day when you ve had plenty to eat and drink. That is also why people weigh the least in the morning. Also, it is best if you always weigh yourself in similar clothing each day. However, you need to keep in mind that your weight may fluctuate from day to day and can be affected by many factors, including: What you ate or drank the previous day Bloating or water retention Menstrual cycle Whether you ve had bowel movements recently Therefore, it is important to assess the trend of your weight over a longer period of time, insteadof drawing conclusions from each and every weighing. A basic scale will do just fine. However, many scales also have the ability to measure your body mass index (BMI), body fat percentage and muscle mass, which may help you get a better picture of yourprogress. There are also several apps available for your phone or computer that allow you to easily enter your daily weight and see the trend of your weight change. Happy Scale for iPhone and [facility] for Androidare two such apps. BOTTOM LINE: It is best to weigh yourself right after you wake up, after going to the bathroom and before you eat or drink anything. Other Ways to Track Your Progress Although self-weighing may be a valuable tool, it has some limitations. If you re exercising and gaining muscle, the scale may not show your progress and instead simply show that you have gained weight. While losing weight can indicate progress, a scale does not differentiate between healthy weight (muscle) and unhealthy weight (fat). Therefore, it may be good to add other ways of tracking your progress to your regimen. Here are some examples: Measure circumference: Muscle has much less volume than fat, so your circumference may be decreasing even if your weight stays the same or goes up. Measure body fat percentage: By measuring your body fat percentage, you can observe changes in fat mass, regardless of your weight. Take pictures of yourself regularly: You can observe any changes in your physique by comparing photos of yourself in similar clothing. Note how your clothes feel: Any changes in your weight will probably affect how your clothes fit. Feeling them become looser or tighter is one of the best indicators of changes in your body. BOTTOM LINE: Other ways to track your progress include measuring your circumference, measuring your body fat percentage and taking pictures of yourself. Take Home Message Weighing yourself every day can help increase your awareness of your weight and weight-related behaviors. It may help you lose more weight and prevent you from gaining that weight back in the long-term. Daily self-weighing may just be that extra motivation you need to achieve your weight goals. [email or web address]/nutrition/daily-weighing documented [facility] History of Present illness Narrative* Marleni Almonte MD - 10/15/2024 9:50 AM EDT Images from the original note were not included. Some documentation from previous visit of 05/18/2024 was copied and pasted, documentation has been reviewed and edited as necessary for today's visit. Patient Summary: Jennifer is a 44 year old Female who presents for follow-up evaluation of obesity/weight management to treat and prevent related co- morbidities. In our previous visits we have discussed lifestyle intervention including a nutrition recommendations and physical activity optimization. Her last office visit was 5 months ago. Assessment/plan from last visit: - reviewed tracking food - reviewed back to basics- initial weight mgmt- whole foods and eliminating processed foods- will try to eliminate dairy - high protein - antiinflammatory diet - discussed sleep hygiene and consult to sleep medicine and GO TO SLEEP program. Declines today- maybe next visit - increase topiramate to BID (start at 1/2 tab at night) Interval History PT specifies the following items as new or significant updates since the last appointment: - getting UTIs with [facility] regularly- would like more abx to use - getting out walking more - weight stable but would still like to get down to 165lbs. Feels more balanced with life- facial creams etc. - feels overall better but has some inflammation - sleeping better STARTING WEIGHT WITH first dose phentermine 209lbs(05/22/2022) went to 190lbs Then restarted 10/18 195lbs Date: Wt: 10/15/2024 178 lb 05/18/2024 179 lb 01/28/2024 172 lb 10/29/2023 175lb 08/13/2023 178lb 05/16/2023 177 lb (80.3 kg) 02/20/2023 184 lb (83.5 kg) Weight loss since last vist: 1 lb Total weight loss: 17 lbs from the restart date 10/18 Adjusted ideal body weight: 67.9 kg (149 lb 10.2 oz) Anti-obesity medications: Phentermine. Benefit:suppression appetite Adverse effects: none Anti-obesity medications: Topiramate. Benefit: decreased food noise? Adverse effects: none Weight promoting medications: Other celexa Previous Diet (initial appointment): Dietary changes: B-protein shake- powder, chobani nigerian drink (20g) L- yogurt and cottage cheese and berries, veggies, protein chips, turkey rolls w/ cheese, salad w/ meat D- hamburger w/o bun, vegetable (green beans,broccoli), sometimes GF pasta ( still tries to do meatfirst), soup S- light and fit popcorn- occasional or tea Fluids - water- 80-120oz, coffee Eating 3 meals a day, including breakfast Increasing water intake Controlling portions Identify hunger and satiety cues Increasing protein Reducing carbohydrates Current Barriers: poor sleep hygiene and inadequate sleep duration poor sleep hygiene and inadequate sleep duration Exercise: trying to walk but exercise is decreased due to kids SPORTS Stress: stable Sleep:increased- 6-7 hrs from 4-5 CrCl cannot be calculated (Patient's most recent lab result is older than the maximum 180 days allowed.). 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 levothyroxine (SYNTHROID) 75 mcg tablet Take 1 tablet by mouth daily before breakfast. 90 tablet 1 citalopram (CELEXA) 20 mg tablet Take 1 tablet by mouth once daily. 90 tablet 1 topiramate (TOPAMAX) 50 mg tablet Take 1 tablet by mouth two times a day. 180 tablet 1 multivitamin tablet Take 1 tablet by mouth once daily. levonorgestrel (MIRENA) 21 mcg/24 hours (8 yrs) 52 mg IUD 1 Each by INTRAUTERINE route as directed.1 Each 0 cyanocobalamin (VITAMIN B-12) 1,000 mcg tab Take 1 tablet by mouth once daily. MEDICATION, NON-DATABASE Inject 2 Each subcutaneously every other week. Allergy shots (Patient not taking: Reported on 05/18/2024) fexofenadine (LINDSAY) 60 mg tablet Take 60 mg by mouth as needed (allergies). (Patient not taking:Reported on 10/15/2024) No current facility-administered medications for this visit. ROS denies CP, Dizziness, palpitations, no brain fog, no paraesthesia ROS/Fam Hx pertaining to AOMs: >Phentermine: No uncontrolled HTN, No CVD Hx or hx of seizure disorder. No MAOI inhibitor use. No drug abuse hx. Crcl > 15. >Topiramate/zonisamide: No seizure or kidney stone hx. hx of migraines, yes hx of poor sleep. yes Child bearing age. >Qsymia: see above >Contrave: No contraindications. Could affect mood. No uncontrolled HTN or hx of seizure disorder. No MAOI inhibitor use. No opiate use. >Saxenda/Wegovy/Ozempic: Cost. Ins coverage? >Metformin: No contraindications or medication interactions. eGFR > 30. 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 Latest Ref Rng & Units 02/05/2024 CMP Sodium 136 - 144 mmol/L 135 Potassium 3.7 - 5.1 mmol/L 3.6 Chloride 98 - 107 mmol/L 105 CO2 22 - 30 mmol/L 22 Glucose 74 - 99 mg/dL 81 BUN 7 - 21 mg/dL 12 Creatinine 0.58 - 0.96 mg/dL 0.72 EGFR >=60 mL/min/1.73m 106 Protein, Total 6.3 - 8.0 g/dL 7.9 Albumin 3.9 - 4.9 g/dL 4.6 Calcium 8.5 - 10.2 mg/dL 9.2 Bilirubin, Total 0.2 - 1.3 mg/dL 0.8 AST 13 - 35 U/L 14 ALT 7 - 38 U/L 10 Alkaline Phosphatase 34 - 123 U/L 50 Cholesterol, Total (mg/dL) Date Value 02/05/2024 155 06/21/2021 168 HDL Cholesterol (mg/dL) Date Value 02/05/2024 66 06/21/2021 47 LDL Cholesterol (mg/dL) Date Value 02/05/2024 78 06/21/2021 102 Triglyceride (mg/dL) Date Value 02/05/2024 55 06/21/2021 94 Latest Ref Rng & Units 02/05/2024 CBC WBC 3.70 - 11.00 k/uL 5.89 RBC 3.90 - 5.20 m/uL 4.46 Hemoglobin 11.5 - 15.5 g/dL 13.2 Hematocrit 36.0 - 46.0 % 39.7 MCV 80.0 - 100.0 fL 89.0 MCH 26.0 - 34.0 pg 29.6 MCHC 30.5 - 36.0 g/dL 33.2 RDW-CV 11.5 - 15.0 % 12.4 Platelet Count 150 - 400 k/uL 323 MPV 9.0 - 12.7 fL 8.3 Vitamin D 25 Hydroxy Date Value Ref Range Status 02/20/2023 45.0 31.0 - 80.0 ng/mL Final 05/15/2021 33.1 31.0 - 80.0 ng/mL Final Comment: Classification of 25 OH Vitamin D status: Insufficiency/Moderate Deficiency: < or = 30 ng/mL Sufficiency/Optimal Levels: 31 to 80 ng/mL Toxicity: > 100 ng/mL Test performed by chemiluminescent immunoassay. TSH Date Value 02/05/2024 1.790 mIU/L 02/20/2023 1.420 mIU/L 05/15/2021 2.830 uU/mL ) Hemoglobin A1C (%) Date Value 02/20/2023 5.1 Insulin Date Value Ref Range Status 03/14/2024 3.9 3.0 - 25.0 mU/L Final Assessment/Plan: Jennifer Manning is a 44 year old yo with Class I obesity who presented today for follow up for supervised weight loss to treat and prevent related co-morbidities. 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 Help with inflammation. Discussed if approved will stop other two medications. If not approved or too expensive will go back to phentermine and topiramate BID - topiramate to BID - setting alarm to remember - sleep hygiene reviewed - discussed resistance training (3-4 x weekly) and importance with GLP1s and protein intake -macrobid for after intercourse ordered - CMP ordered - An overall goal of 150-200 minutes per week of exercise has been effective in weight loss and maintenance. Prescription instructions reviewed with patient as applicable. Potential red flag symptoms discussed with the patient. Reviewed appropriate action plan to take ifred flag symptoms occur. Patient agreeable to treatment plan. Follow up in 3 months or sooner if needed I spent a total of 33 minutes on the date of the service which included preparing to see the patient, exih-mn-yuid patient care, completing clinical documentation, obtaining and/or reviewing separately obtained history, performing a medically appropriate examination, counseling and educating the pat ient/family/caregiver, and ordering medications, tests, or procedures. Marleni Avendaño MD, FACOG, DABOM documented in this encounter[facility] NoteHNO ID: [id number] Author: MARLENI ALMONTE MD Service: ? Author Type: Physician Type: Progress Notes Filed: 10/15/2024 12:33 Note Text: Some documentation from previous visit of 05/18/2024 was copied and pasted, documentation has been reviewed and edited as necessary for today's visit. Patient Summary: Jennifer is a 44 year old Female who presents for follow-up evaluation of obesity/weight management to treat and prevent related co-morbidities. In our previous visits we have discussed lifestyle intervention including a nutrition recommendations and physical activity optimization. Her last office visit was 5 months ago. Assessment/plan from last visit: - reviewed tracking food - reviewed back to basics- initial weight mgmt- whole foods and eliminating processed foods- will try to eliminate dairy - high protein - antiinflammatory diet - discussed sleep hygiene and consult to sleep medicine and GO TO SLEEP program. Declines today- maybe next visit - increase topiramate to BID (start at 1/2 tab at night) Interval History PT specifies the following items as new or significant updates since the last appointment: - getting UTIs with [facility] regularly- would like more abx to use - getting out walking more - weight stable but would still like to get down to 165lbs. Feels more balanced with life- facial creams etc. - feels overall better but has some inflammation - sleeping better STARTING WEIGHT WITH first dose phentermine 209lbs(05/22/2022) went to 190lbs Then restarted 10/18 195lbs Date: Wt: 10/15/2024 178 lb 05/18/2024 179 lb 01/28/2024 172 lb 10/29/2023 175lb 08/13/2023 178lb 05/16/2023 177 lb (80.3 kg) 02/20/2023 184 lb (83.5 kg) Weight loss since last vist: 1 lb Total weight loss: 17 lbs from the restart date 10/18 Adjusted ideal body weight: 67.9 kg (149 lb 10.2 oz) Anti-obesity medications: Phentermine. Benefit:suppression appetite Adverse effects: none Anti-obesity medications: Topiramate. Benefit: decreased food noise? Adverse effects: none Weight promoting medications: Other celexa Previous Diet (initial appointment): Dietary changes: B-protein shake- powder, chobani nigerian drink (20g) L- yogurt and cottage cheese and berries, veggies, protein chips, turkey rolls w/ cheese, salad w/ meat D- hamburger w/o bun, vegetable (green beans,broccoli), sometimes GF pasta ( still tries to do meat first), soup S- light and fit popcorn- occasional or tea Fluids - water- 80-120oz, coffee Eating 3 meals a day, including breakfast Increasing water intake Controlling portions Identify hunger and satiety cues Increasing protein Reducing carbohydrates Current Barriers: poor sleep hygiene and inadequate sleep duration poor sleep hygiene and inadequate sleep duration Exercise: trying to walk but exercise is decreased due to kids SPORTS Stress: stable Sleep:increased- 6-7 hrs from 4-5 CrCl cannot be calculated (Patient's most recent lab result is older than the maximum 180 days allowed.). 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 levothyroxine (SYNTHROID) 75 mcg tablet Take 1 tablet by mouth daily before breakfast. 90 tablet 1 citalopram (CELEXA) 20 mg tablet Take 1 tablet by mouth once daily. 90 tablet 1 topiramate (TOPAMAX) 50 mg tablet Take 1 tablet by mouth two times a day. 180 tablet 1 multivitamin tablet Take 1 tablet by mouth once daily. levonorgestrel (MIRENA) 21 mcg/24 hours (8 yrs) 52 mg IUD 1 Each by INTRAUTERINE route as directed. 1 Each 0 cyanocobalamin (VITAMIN B-12) 1,000 mcg tab Take 1 tablet by mouth once daily. MEDICATION, NON-DATABASE Inject 2 Each subcutaneously every other week. Allergy shots (Patient not taking: Reported on 05/18/2024) fexofenadine (LINDSAY) 60 mg tablet Take 60 mg by mouth as needed (allergies). (Patient not taking: Reported on 10/15/2024) No current facility-administered medications for this visit. ROS denies CP, Dizziness, palpitations, no brain fog, no paraesthesia ROS/Fam Hx pertaining to AOMs: >Phentermine: No uncontrolled HTN, No CVD Hx or hx of seizure disorder. No MAOI inhibitor use. No drug abuse hx. Crcl > 15. >Topiramate/zonisamide: No seizure or kidney stone hx. hx of migraines, yes hx of poor sleep. yes Child bearing age. >Qsymia: see above >Contrave: No contraindications. Could affect mood. No uncontrolled HTN or hx of seizure disorder. No MAOI inhibitor use. No opiate use. >Saxenda/Wegovy/Ozempic: Cost. Ins coverage? >Metformin (more content not included)...[facility]01-13-2025 Telephone encounter Note* Telephone Encounter - Love Ruelas LPN - 08/10/2024 9:35 AM EST Prescription Refill Information The patient has been identified by name and date of : Yes Caregiver verified no other encounters exist for this prescription request: Yes Caregiver confirmed with patient/requestor that no other refills are due, in the near future, with this provider at this time: Yes The last office visit in the department: 10/29/2023 Does the patient have a future office visit with this provider/department: No Requested Prescriptions Pending Prescriptions Disp Refills levothyroxine (SYNTHROID) 75 mcg tablet 90 tablet 1 Sig: Take 1 tablet by mouth daily before breakfast. Love Ruelas LPN August 10, 2024 9:35 AM [facility]01-13-2025 Miscellaneous Notes* Telephone Encounter - Love Ruelas LPN - 08/10/2024 9:35 AM EST Prescription Refill Information The patient has been identified by name and date of : Yes Caregiver verified no other encounters exist for this prescription request: Yes Caregiver confirmed with patient/requestor that no other refills are due, in the near future, with this provider at this time: Yes The last office visit in the department: 10/29/2023 Does the patient have a future office visit with this provider/department: No Requested Prescriptions Pending Prescriptions Disp Refills levothyroxine (SYNTHROID) 75 mcg tablet 90 tablet 1 Sig: Take 1 tablet by mouth daily before breakfast. Love Ruelas LPN August 10, 2024 9:35 AM documented in [facility] encounter[facility] NoteHNO ID: [id number] Author: KVNG ROLDAN PA Service: ? Author Type: Physician Press Room Supervisor Type: Progress Notes Filed: 07/16/2024 18:29 Note Text: This note was created using LOCK8. Subjective Jennifer Manning is a 43 year old female. HPI 43-year-old male presents for urinary frequency, urgency, dysuria x 3 days. Patient states symptoms started after having intercourse. She states that she has had burning with urination, urgency and frequency. She denies any blood in the urine. No abdominal pain or back pain. No fevers or vomiting. She states she had a little bit of a vaginal odor for the past few days as well. She has a small amount of vaginal discharge. She does have a Mirena for hormone control. Denies any pelvic pain. She states that she had the symptoms about a month ago and was treated for UTI with Keflex, but states urine culture came back negative. Her symptoms did resolve with the Keflex however. Patient did take an [id number]-sxx-[id number] medication, unsure what is called, but it was not Azo. 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 topiramate (TOPAMAX) 50 mg tablet Take 1 tablet by mouth two times a day. Phentermine HCl 37.5 mg capsule Take 1 capsule by mouth daily before breakfast for 90 days. multivitamin tablet Take 1 tablet by mouth once daily. levonorgestrel (MIRENA) 21 mcg/24 hours (8 yrs) 52 mg IUD 1 Each by INTRAUTERINE route as directed. levothyroxine (SYNTHROID) 75 mcg tablet Take 1 tablet by mouth daily before breakfast. fexofenadine (LINDSAY) 60 mg tablet Take 60 mg by mouth as needed (allergies). cyanocobalamin (VITAMIN B-12) 1,000 mcg tab Take 1 tablet by mouth once daily. nitrofurantoin monohydrate and macrocrystal (MACROBID) 100 mg capsule Take 1 capsule by mouth two times a day for 7 days. MEDICATION, NON-DATABASE Inject 2 Each subcutaneously every other week. Allergy shots (Patient not taking: Reported on 05/18/2024) FAMILY HISTORY Problem Relation Age of Onset Rheumatologic disease Mother Arthritis Mother other (Raynauds) Mother other (mitral valve) Mother Breast Cancer Mother Allergies Sister other (mitral valave) Sister Diabetes Maternal Grandmother Cancer Maternal Grandfather Heart Maternal Grandfather Diabetes Maternal Grandfather Heart Paternal Grandfather Cancer Maternal Aunt breast No Ocular Disease Other Social History Tobacco Use Smoking status: Never Smokeless tobacco: Never Vaping Use Vaping status: Never Used Substance Use Topics Alcohol use: Yes Comment: 2-3 glasses of wine per week, not while Drug use: No Review of Systems Constitutional: Negative for chills and fever. HENT: Negative for congestion, ear pain and sore throat. Respiratory: Negative for cough and shortness of breath. Cardiovascular: Negative for chest pain. Gastrointestinal: Negative for abdominal pain, diarrhea and vomiting. Genitourinary: Positive for dysuria, frequency and urgency. Objective BP 100/80 Pulse 89 Temp 36.8 ?C (98.2 ?F) Resp 18 Wt 82.3 kg (181 lb 7 oz) LMP 04/25/2021 SpO2 100% BMI 29.28 kg/m? Physical Exam Vitals and nursing note reviewed. Constitutional: General: She is not in acute distress. Appearance: Normal appearance. She is not toxic-appearing. HENT: Nose: Nose normal. Mouth/Throat: Mouth: Mucous membranes are moist. Eyes: Conjunctiva/sclera: Conjunctivae normal. Cardiovascular: Rate and Rhythm: Normal rate and regular rhythm. Pulmonary: Effort: Pulmonary effort is normal. Breath sounds: Normal breath sounds. Abdominal: General: Abdomen is flat. Palpations: Abdomen is soft. Tenderness: There is no abdominal tenderness. There is no guarding or rebound. Genitourinary: Comments: Deferred, patient will self swab Skin: General: Skin is warm and dry. Neurological: Mental Status: She is alert. Assessment and Plan ASSESSMENT/PLAN: 1. Urinary frequency - ICD9: 788.41, ICD10: R35.0 (primary diagnosis) acute - UA positive for michael esterase and hematuria - Send urine for culture - Begin treatment with Macrobid 100 mg BID for 7 days - Patient education for prevention given - (more content not included)...[facility]12-19-2024 History of Present illness Narrative* Kvng Roldan PA - 07/16/2024 6:26 PM EST This note was created using LOCK8. Subjective Jennifer Manning is a 43 year old female. HPI 43-year-old male presents for urinary frequency, urgency, dysuria x 3 days. Patient states symptoms started after having intercourse. She states that she has had burning with urination, urgency and frequency. She denies any blood in the urine. No abdominal pain or back pain. No fevers or vomiting. She states she had a little bit of a vaginal odor for the past few days as well. She has a smallamount of vaginal discharge. She does have a Mirena for hormone control. Denies any pelvic pain. She states that she had the symptoms about a month ago and was treated for UTI with Keflex, but statesurine culture came back negative. Her symptoms did resolve with the Keflex however. Patient did take an usor-lwb-fypjmak medication, unsure what is called, but it was not Azo. 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 topiramate (TOPAMAX) 50 mg tablet Take 1 tablet by mouth two times a day. Phentermine HCl 37.5 mg capsule Take 1 capsule by mouth daily before breakfast for 90 days. multivitamin tablet Take 1 tablet by mouth once daily. levonorgestrel (MIRENA) 21 mcg/24 hours (8 yrs) 52 mg IUD 1 Each by INTRAUTERINE route as directed. levothyroxine (SYNTHROID) 75 mcg tablet Take 1 tablet by mouth daily before breakfast. fexofenadine (LINDSAY) 60 mg tablet Take 60 mg by mouth as needed (allergies). cyanocobalamin (VITAMIN B-12) 1,000 mcg tab Take 1 tablet by mouth once daily. nitrofurantoin monohydrate and macrocrystal (MACROBID) 100 mg capsule Take 1 capsule by mouth two times a day for 7 days. MEDICATION, NON-DATABASE Inject 2 Each subcutaneously every other week. Allergy shots (Patient not taking: Reported on 05/18/2024) FAMILY HISTORY Problem Relation Age of Onset Rheumatologic disease Mother Arthritis Mother other (Raynauds) Mother other (mitral valve) Mother Breast Cancer Mother Allergies Sister other (mitral valave) Sister Diabetes Maternal Grandmother Cancer Maternal Grandfather Heart Maternal Grandfather Diabetes Maternal Grandfather Heart Paternal Grandfather Cancer Maternal Aunt breast No Ocular Disease Other Social History Tobacco Use Smoking status: Never Smokeless tobacco: Never Vaping Use Vaping status: Never Used Substance Use Topics Alcohol use: Yes Comment: 2-3 glasses of wine per week, not while Drug use: No Review of Systems Constitutional: Negative for chills and fever. HENT: Negative for congestion, ear pain and sore throat. Respiratory: Negative for cough and shortness of breath. Cardiovascular: Negative for chest pain. Gastrointestinal: Negative for abdominal pain, diarrhea and vomiting. Genitourinary: Positive for dysuria, frequency and urgency. Objective BP 100/80 Pulse 89 Temp 36.8 C (98.2 F) Resp 18 Wt 82.3 kg (181 lb 7 oz) LMP 04/25/2021 SpO2 100% BMI 29.28 kg/m Physical Exam Vitals and nursing note reviewed. Constitutional: General: She is not in acute distress. Appearance: Normal appearance. She is not toxic-appearing. HENT: Nose: Nose normal. Mouth/Throat: Mouth: Mucous membranes are moist. Eyes: Conjunctiva/sclera: Conjunctivae normal. Cardiovascular: Rate and Rhythm: Normal rate and regular rhythm. Pulmonary: Effort: Pulmonary effort is normal. Breath sounds: Normal breath sounds. Abdominal: General: Abdomen is flat. Palpations: Abdomen is soft. Tenderness: There is no abdominal tenderness. There is no guarding or rebound. Genitourinary: Comments: Deferred, patient will self swab Skin: General: Skin is warm and dry. Neurological: Mental Status: She is alert. Assessment and Plan ASSESSMENT/PLAN: 1. Urinary frequency - ICD9: 788.41, ICD10: R35.0 (primary diagnosis) acute - UA positive for michael esterase and hematuria - Send urine for culture - Begin treatment with Macrobid 100 mg BID for 7 days - Patient education for prevention given - UA DIP, URINE (POC) - URINE CULTURE - RACHELLE/TRICHOMONAS NAAT - BACTERIAL VAGINOSIS NAAT 2. Vaginal odor - ICD9: 625.8, ICD10: N89.8 - RACHELLE/TRICHOMONAS NAAT - BACTERIAL VAGINOSIS NAAT - please treat if + Diagnosis and treatment plan were discussed and questions were answered to the patient's satisfaction. Pt acknowledged understanding of concepts and follow up plan. Specific signs and symptoms that would indicate the need for higher level of care were discussed in detail warranting prompt ER evaluation. DAVID Abdi documented [facility] encounter[facility] Telephone encounter Note * Telephone Encounter - Love Ruelas LPN - 06/15/2024 1:11 PM EST Prescription Refill Information The patient has been identified by name and date of : Yes Caregiver verified no other encounters exist for this prescription request: Yes Caregiver confirmed with patient/requestor that no other refills are due, in the near future, with this provider at this time: Yes The last office visit in the department: 10/29/2023 Does the patient have a future office visit with this provider/department: No Requested Prescriptions Pending Prescriptions Disp Refills citalopram (CELEXA) 20 mg tablet 90 tablet 1 Sig: Take 1 tablet by mouth once daily. Love Ruelas LPN June 15, 2024 1:12 PM [facility]11-18-2024 Miscellaneous Notes* Telephone Encounter - Love Ruelas LPN - 06/15/2024 1:11 PM EST Prescription Refill Information The patient has been identified by name and date of : Yes Caregiver verified no other encounters exist for this prescription request: Yes Caregiver confirmed with patient/requestor that no other refills are due, in the near future, with this provider at this time: Yes The last office visit in the department: 10/29/2023 Does the patient have a future office visit with this provider/department: No Requested Prescriptions Pending Prescriptions Disp Refills citalopram (CELEXA) 20 mg tablet 90 tablet 1 Sig: Take 1 tablet by mouth once daily. Love Ruelas LPN June 15, 2024 1:12 PM documented in this encounterScci Hospital [facility]10-21-2024 Instructions* Patient Instructions* Marleni Almonte MD - 05/18/2024 2:17 PM EDT Images from the original note were not included. - Eat primarily whole foods. Limit carbs, especially processed carbs. Eat - Meat, vegetables and fruits with skin on if possible, eggs, cheese. - Do not drink your calories - 30 grams of protein for your first meal of the day decreases your hunger during the day by up to 40 %. Options include: Premier Protein or generic 30 gm protein 1 gm sugar or 5 eggs or 2-3 eggs andsome unbreaded meat and/or cheese. No fruit, vegetables, bread, grain, yogurt, Smoothies, etc. - Walk for 15 minutes immediately after meal Disrupted Sleep Linked to Weight Gain - YouTube How To Improve Your Sleep To Impact Your Weight Loss: [email or web address] Weight Loss and Sleep Updated May 06, 2020 Written by Bryant Giles Medically Reviewed by Ninfa Graves In This Article The Connection Between Sleep and Weight Sleep and Obesity Sleep During Weight Loss Maintaining a Healthy Relationship With Your Body Losing weight is challenging, and keeping weight off can be just as difficult. Although the medicalcommunity is still untangling the complicated relationship between sleep and body weight, several potential links have emerged that highlight the potential weight loss benefits of getting a good night s rest and the negative health impacts of sleep deprivation. The Connection Between Sleep and Weight Over the past several decades, the amount of time that Americans spend sleeping has steadily decreased1, as has the self-reported quality of that sleep. For much of the same time period, the average body mass index (BMI) of Americans increased2, reflecting a trend toward higher body weights and elevated rates of obesity. In response to these trends, many researchers began to hypothesize about potential connections between weight and sleep. Numerous studies have suggested that restricted sleep and poor sleep quality may lead to metabolic disorders, weight gain, and an increased risk of obesity and other chronic health conditions. While there is continuing debate within the medical community about the exact nature of this relationship, the existing research points to a positive correlation between good sleep and healthy body weight. There remains much to be discovered about the intricate details of how sleep and weight are connected. Several hypotheses offer paths for additional research with the hope that increasing our understanding of the relationship between weight and sleep will lead to reduced obesity and better weight-loss methods. Can Lack of Sleep Increase Appetite? One common hypothesis about the connection between weight and sleep involves how sleep affects appetite. While we often think of appetite as simply a matter of stomach grumbling, it s actually controlled by neurotransmitters, which are chemical messengers that allow neurons (nerve cells) to communicate with one another. The neurotransmitters ghrelin and leptin are thought to be central to appetite. Ghrelin promotes hunger, and leptin contributes to feeling full. The body naturally increases and decreases the levels of these neurotransmitters throughout the day, signaling the need to consume calories3. A lack of sleep may affect the body s regulation of these neurotransmitters. In one study, men who got 4 hours of sleep had increased ghrelin and decreased leptin compared to those who got 10 hours of sleep. This dysregulation of ghrelin and leptin may lead to increased appetite and diminished feelings of fullness in people who are sleep deprived. In addition, several studies have also indicated that sleep deprivation affects food preferences. Sleep-deprived individuals tend to choose foods that are high in calories and carbohydrates4. Other hypotheses regarding the connection between sleep and increased appetite involve the body s endocannabinoid system5 and orexin6, a neurotransmitter targeted by some sleep aids. Many researchers believe that the connection between sleep and dysregulation of neurotransmitters is complicated and additional studies are needed to further understand the neurobiological relationship. Does Sleep Increase Metabolism? Metabolism7 is a chemical process in which the body converts what we eat and drink into energy needed to survive. All of our collective activities, from breathing to exercising and everything in between, is part of metabolism. While activities like exercise can temporarily increase metabolism, sleep cannot8. Metabolism actually slows about 15% during sleep, reaching its lowest level in the morning 9. In fact, many studies have shown that sleep deprivation (whether due to self- induction, insomnia, untreated sleep apnea, or other sleep disorders) commonly leads to metabolic [id number]. Poor sleep is associated with increased oxidative stress, glucose (blood sugar) intolerance (a precursor todiabetes), and insulin resistance. Extra time spent awake may increase the opportunities to eat11, and sleeping less may disrupt circadian rhythms, leading to weight gain12. How is Sleep Related to Physical Activity? Losing sleep can result in having less energy for exercise and physical activity. Feeling tired canalso make sports and exercising less safe, especially activities like weightlifting and or those requiring balance. While researchers are still working to understand this [id number], it s well known that exercise is essential to maintaining weight loss and overall health. Getting regular exercise can improve sleep quality, especially if that exercise involves natural light. While even taking a short walk during the day may help improve sleep, more activity can have a more dramatic impact. Engaging in at least 150 minutes of moderate-intensity or 75 minutes of high-intensity exercise per week can improve daytime concentration and decrease daytime [id number]. Sleep and Obesity In children and adolescents, the link between not getting enough sleep and an increased risk of obesity is well-established, although the reason for this link is still being debated. Insufficient sleep in children can lead to metabolic irregularities as discussed earlier, skipping breakfast in the mornings, and increased intake of sweet, salty, fatty, and starchy foods15. In adults, the research is less clear. While a large analysis of past studies suggests that people getting less than 6 hours of sleep at night are more likely to be diagnosed as obese16, it s challenging for these studies to determine cause and effect. Obesity itself can increase the risk of developing conditions that interfere with sleep, like sleep apnea and depression. It s not clear if getting less sleep is the cause of obesity in these studies, if obesity is causing the participants to getless sleep, or perhaps a mix of both. Even though more studies are needed to understand this connection, experts encourage improving sleep quality when treating obesity in adults. Sleep During Weight Loss Getting adequate, quality sleep is an important part of a healthy weight loss plan. Most importantly, research has shown that losing sleep while dieting can reduce the amount of weight lost17 and encourage . Tips for Quality Sleep During Weight Loss There are many ways to improve sleep. Here are a few research-based tips for sleeping better when you re trying to lose weight: Keep a regular sleep schedule: Big swings in your sleep schedule or trying to catch up on sleep after a week of late nights can cause changes in metabolism and reduce insulin [id number], making iteasier for blood sugar to be elevated. Sleep in a dark room: Exposure to artificial light while sleeping, such as a TV or bedside lamp, isassociated with an increased risk of weight gain and . Don t eat right before bed: Eating late may reduce the success of weight loss [id number] Reduce Stress: Chronic stress may lead to poor sleep and weight gain in several ways, including eating to cope with negative [id number] Be an Early Bird: People with late bedtimes may consume more calories and be at a higher risk for weight gain23. Early birds may be more likely to maintain weight loss when compared to night owls24. Maintaining a Healthy Relationship With Your Body Deciding if you should attempt to change your body weight is a personal decision best made with theguidance of your doctor. Don t take all the health and weight loss information you read atface value. Weight loss isn t appropriate for everyone and doesn t always mean better health. Remember that health is a lifelong journey that includes not only healthy habits but also having a healthy relationship with your body. If you re considering weight loss, the National Institutes of Health offers a helpful resource for choosing a safe weight loss [id number] Source National Centrahoma of Diabetes and Digestive and Kidney DiseasesNIDDK research creates knowledge about and treatmentsfor diseases that are among the most chronic, costly, and consequential for patients, their families, and the Nation. niddk.nih.gov . https://www.sleepfoundation.org/physical-health/tyeqpi-lnfh-mtn-sleep Sleep Hygiene Tips Set a sleep schedule and stick to it. Try to go to bed at night and awaken in the morning around the same times, even on weekends. This helps to regulate the body s sleep cycles and circadian rhythms. Try to exercise at some point in the day but avoid vigorous activity (running, fast dancing, high-intensity interval training) one hour before bedtime. Regular exercise of adequate intensity can promote muscle relaxation and deeper sleep later on. If you re in the habit of napping during the day, aim for a 10-20 minute power nap to achieve the goals of reduced fatigue and increased alertness. It s best to take naps in the early afternoon to avoid interference with nighttime sleep. Try to avoid large meals, heavy snacking,or alcohol 2-3 hours before bed. If you are sensitive to caffeine, try to avoid drinking caffeinated beverages 4-6 hours before bedtime. Stop using electronic devices an hour before bed, especially those emitting blue light such as smartphones, tablets, and televisions. Schedule before-bed activities to signal that you are winding down, such as changing into pajamas and brushing teeth. Create a quiet, dark, relaxing environment in your bedroom. Dim the lights and turn off your cell phone s sound and vibration modes if possible. Ensure a comfortable temperature, as feeling too hot or cold can disrupt sleep. Create calming bedtime rituals such as practicing deep breathing exercises, doing light yoga stretches, or listening to soothing relaxing music. If you awaken and can t return to sleep, don t stay in bed. Get up and do quiet relaxing activities, such as reading, until you feel tired enough to fall back asleep. Foods that fight inflammation April 15, 2020 Doctors are learning that one of the best ways to reduce inflammation lies not in the medicine cabinet, but in the refrigerator. By following an anti- inflammatory diet you can fight off inflammation for good. What does an anti-inflammatory diet do? Your immune system becomes activated when your body recognizes anything that is foreign--such as an invading microbe, plant pollen, or chemical. This often triggers a process called inflammation. Intermittent bouts of inflammation directed at truly threatening invaders protect your health. However, sometimes inflammation persists, day in and day out, even when you are not threatened by aforeign invader. That's when inflammation can become your enemy. Many major diseases that plague us--including cancer, heart disease, diabetes, arthritis, depression, and Alzheimer's--have been linked to chronic inflammation. One of the most powerful tools to combat inflammation comes not from the pharmacy, but from the grocery store. Many experimental studies have shown that components of foods or beverages may have anti-inflammatory effects, says Dr. Stephan Payne, professor of nutrition and epidemiology in the Department of Nutrition at the [employer]. Choose the right anti-inflammatory foods, and you may be able to reduce your risk of illness. Consistently pick the wrong ones, and you could accelerate the inflammatory disease process. Get simple tips to fight inflammation and stay healthy -- from [facility] [employer] experts. Protect yourself from the damage of chronic inflammation Click here to learn more Foods that cause inflammation Try to avoid or limit these foods as much as possible: refined carbohydrates, such as white bread and pastries [place] fries and other fried foods soda and other sugar-sweetened beverages red meat (burgers, steaks) and processed meat (hot dogs, sausage) margarine, shortening, and lard The health risks of inflammatory foods Not surprisingly, the same foods on an inflammation diet are generally considered bad for our health, including sodas and refined carbohydrates, as well as red meat and processed meats. Some of the foods that have been associated with an increased risk for chronic diseases such as type 2 diabetes and heart disease are also associated with excess inflammation, Dr. Payne says. It's not surprising, since inflammation is an important underlying mechanism for the development of these diseases. Unhealthy foods also contribute to weight gain, which is itself a risk factor for inflammation. 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 Some of the food components or ingredients may have independent effects on inflammation over and above increased caloric intake, Dr. Payne says. Anti-inflammatory foods An anti-inflammatory diet should include these foods: tomatoes olive oil green leafy vegetables, such as spinach, kale, and collards nuts like almonds and walnuts fatty fish like salmon, mackerel, tuna, and sardines fruits such as strawberries, blueberries, cherries, and oranges Benefits of anti-inflammatory foods On the flip side are beverages and foods that reduce inflammation, and with it, chronic disease, says Dr. Payne. He notes in particular fruits and vegetables such as blueberries, apples, and leafy greens that are high in natural antioxidants and polyphenols--protective compounds found in plants. Studies have also associated nuts with reduced markers of inflammation and a lower risk of cardiovascular disease and diabetes. Coffee, which contains polyphenols and other anti-inflammatory compounds, may protect against inflammation, as well. Anti-inflammatory diet To reduce levels of inflammation, aim for an overall healthy diet. If you're looking for an eating plan that closely follows the tenets of anti-inflammatory eating, consider the Mediterranean diet, which is high in fruits, vegetables, nuts, whole grains, fish, and healthy oils. In addition to lowering inflammation, a more natural, less processed diet can have noticeable effects on your physical and emotional health. A healthy diet is beneficial not only for reducing the risk of chronic diseases, but also for improving mood and overall quality of life, Dr. Payne says. VEGAN PROTEIN LIST SOY Tempeh: 17g protein 8g carbohydrate in 1/2 cup, Shelled Edamame: 9g Protein, 8g carbohydrate in 1/2cup Tofu: 9g protein,2 g carbohydrate per 3oz Soy Milk: 7g Protein, 15g carbohydrate in 1 cup Nutritional Yeast 8g Protein, 5g Carbohydrate in 2TBSP (16g) Seitan 30g Protein, 6.8g Carbohydrate in 1/2 cup Whole Grains Quinoa: 8g protein in 1cup Wild rice 6.5g protein in 1 cup Legumes Lentils 12g protein, 23g carbohydrate in 1/2 cup cooked Chickpea 6g protein, 17g carbohydrate in 1/2 cup cooked Black Beans 7g protein, 19g carbohydrate in 1/2 cup cooked Green Split peas 8g protein, 22g carbohydrate in 1/2 cup cooked Godfrey Turk 8g protein, 20g carbohydrate in 1/2 cup cooked Seeds Pumpkin 8g protein, 3 carbohydrate in 1/4cup Hemp 9g protein, 3 carbohydrate in 3 Tablespoons Tahini 10g protein, 3 carbohydrate in 2 Tablespoons Duglas 5g protein, 10g carbohydrate in 2 tablespoons Nuts Almonds 6g protein, 6g carbohydrate in 1/4cup Walnuts 4g protein, 4g carbohydrate in 1/4cup Cashew 4g protein, 9g carbohydrate in 1/4cup Peanuts 8g protein, 5g carbohydrate in 1/4cup Peanut butter 7g protein, 6g carbohydrate in 2 TBSP Potatoes Russet potato- 1 medium (173g) 4.5g protein, 37g carbohydrate Red Potato- 1 large (299g) 6.9g protein, 59g carbohydrate Sweet Potato - 1 medium (114g) 2.3g protein, 24g carbohydrate Sprouted grain bread Jagdeep bread- per slice 5g protein, 15g carbohydrate Vegetables Artichoke- 4.2g protein, 13g carbohydrate in 1 medium (128g) Green Peas- 8g protein, 21g carbohydrates in 1 cup Brussel Sprouts - 3g protein, 8g carbohydrate in 1 cup Cahone- 4.3g protein, 19g carbohydrate in 1/2cup Spinach- 1g protein, 1g carbohydrate in 1 cup 3g carb8g carb 20g protein, 4 carbohydrate per scoop QUICK VEGAN PROTEIN PRODUCTS/SNACKS: NOT high in protein- BUT LOW CARB SUBSTITUTE FOR NOODLES [facility] History of Present illness Narrative* Marleni Almonte MD - 05/18/2024 2:00 PM EDT Images from the original note were not included. Some documentation from previous visit of 01/28/2024 was copied and pasted, documentation has been reviewed and edited as necessary for today's visit. Patient Summary: Jennifer is a 43 year old Female who presents for follow-up evaluation of obesity/weight management to treat and prevent related co- morbidities. In our previous visits we have discussed lifestyle intervention including a nutrition recommendations and physical activity optimization. Her last office visit was 3.5 months ago. Assessment/plan from last visit: - repeat labs today- ordered patient advised to do fasting - advised on tracking food daily - continue whole foods, low carb, high protein - continue phentermine and topiramate - >5% TBW loss in initial 3 months of phentermine use qualifying for long-term off label treatment of obesity - discussed adding in resistance training and importance of this and impact it will have on metabolism. Interval History PT specifies the following items as new or significant updates since the last appointment: -feeling bloating and gassy - changed to core power 42g drinks- wonders If those are impacting her gut - gut and mind keep her up at night - daughter has issues with dairy ?? Maybe she does too - saw endocrinology for low insulin- labs all look good - exhausted during the day to exercise, stress Is high too - no SE with medications. STARTING WEIGHT WITH first dose phentermine 209lbs(05/22/2022) went to 190lbs Then restarted 10/18 195lbs Date: Wt: 05/18/2024 179 lb 01/28/2024 172 lb 10/29/2023 175lb 08/13/2023 178lb 05/16/2023 177 lb (80.3 kg) 02/20/2023 184 lb (83.5 kg) Weight loss since last vist: +7lb Anti-obesity medications: Phentermine. Benefit:suppression appetite Adverse effects: none Anti-obesity medications: Topiramate. Benefit: decreased food noise? Adverse effects: none Weight promoting medications: Other celexa Previous Diet (initial appointment): Dietary changes: B-protein shake or Quest Bar or yogurt and cottage cheese L- yogurt and cottage and berries, 2 eggs, veggies, cheese or protein D- Tries not to eat late- PROTEIN first veggies and GF pasta (measures) if she gets to it S- light and fit popcorn, Fluids - Eating 3 meals a day, including breakfast Increasing water intake Controlling portions Identify hunger and satiety cues Increasing protein Reducing carbohydrates Current Barriers: poor sleep hygiene and inadequate sleep duration poor sleep hygiene and inadequate sleep duration Exercise: trying to walk but exercise is decreased due to kids SPORTS Stress: stable Sleep: not great- goes to bed late- 4-5 hrs maybe Estimated Creatinine Clearance: 107.2 mL/min (based on SCr of 0.72 mg/dL). 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 multivitamin tablet Take 1 tablet by mouth once daily. topiramate (TOPAMAX) 50 mg tablet Take 1 tablet by mouth once daily. 90 tablet 1 levonorgestrel (MIRENA) 21 mcg/24 hours (8 yrs) 52 mg IUD 1 Each by INTRAUTERINE route as directed.1 Each 0 citalopram (CELEXA) 20 mg tablet Take 1 tablet by mouth once daily. 90 tablet 1 levothyroxine (SYNTHROID) 75 mcg tablet Take 1 tablet by mouth daily before breakfast. 90 tablet 1 fexofenadine (LINDSAY) 60 mg tablet Take 60 mg by mouth as needed (allergies). cyanocobalamin (VITAMIN B-12) 1,000 mcg tab Take 1 tablet by mouth once daily. phenazopyridine (PYRIDIUM) 200 mg tablet Take 1 tablet by mouth three times a day as needed. (Patient not taking: Reported on 05/18/2024) 9 tablet 0 MEDICATION, NON-DATABASE Inject 2 Each subcutaneously every other week. Allergy shots (Patient not taking: Reported on 05/18/2024) No current facility-administered medications for this visit. ROS denies CP, Dizziness, palpitations, no brain fog, no paraesthesia ROS/Fam Hx pertaining to AOMs: >Phentermine: No uncontrolled HTN, No CVD Hx or hx of seizure disorder. No MAOI inhibitor use. No drug abuse hx. Crcl > 15. >Topiramate/zonisamide: No seizure or kidney stone hx. hx of migraines, yes hx of poor sleep.yes Child bearing age. >Qsymia: see above >Contrave: No contraindications. Could affect mood. No uncontrolled HTN or hx of seizure disorder. No MAOI inhibitor use. No opiate use. >Saxenda/Wegovy/Ozempic: Cost. Ins coverage? >Metformin: No contraindications or medication interactions. eGFR > 30. 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 Latest Ref Rng & Units 02/05/2024 CMP Sodium 136 - 144 mmol/L 135 Potassium 3.7 - 5.1 mmol/L 3.6 Chloride 98 - 107 mmol/L 105 CO2 22 - 30 mmol/L 22 Glucose 74 - 99 mg/dL 81 BUN 7 - 21 mg/dL 12 Creatinine 0.58 - 0.96 mg/dL 0.72 EGFR >=60 mL/min/1.73m 106 Protein, Total 6.3 - 8.0 g/dL 7.9 Albumin 3.9 - 4.9 g/dL 4.6 Calcium 8.5 - 10.2 mg/dL 9.2 Bilirubin, Total 0.2 - 1.3 mg/dL 0.8 AST 13 - 35 U/L 14 ALT 7 - 38 U/L 10 Alkaline Phosphatase 34 - 123 U/L 50 Cholesterol, Total (mg/dL) Date Value 02/05/2024 155 06/21/2021 168 HDL Cholesterol (mg/dL) Date Value 02/05/2024 66 06/21/2021 47 LDL Cholesterol (mg/dL) Date Value 02/05/2024 78 06/21/2021 102 Triglyceride (mg/dL) Date Value 02/05/2024 55 06/21/2021 94 Latest Ref Rng & Units 02/05/2024 CBC WBC 3.70 - 11.00 k/uL 5.89 RBC 3.90 - 5.20 m/uL 4.46 Hemoglobin 11.5 - 15.5 g/dL 13.2 Hematocrit 36.0 - 46.0 % 39.7 MCV 80.0 - 100.0 fL 89.0 MCH 26.0 - 34.0 pg 29.6 MCHC 30.5 - 36.0 g/dL 33.2 RDW-CV 11.5 - 15.0 % 12.4 Platelet Count 150 - 400 k/uL 323 MPV 9.0 - 12.7 fL 8.3 Vitamin D 25 Hydroxy Date Value Ref Range Status 02/20/2023 45.0 31.0 - 80.0 ng/mL Final 05/15/2021 33.1 31.0 - 80.0 ng/mL Final Comment: Classification of 25 OH Vitamin D status: Insufficiency/Moderate Deficiency: < or = 30 ng/mL Sufficiency/Optimal Levels: 31 to 80 ng/mL Toxicity: > 100 ng/mL Test performed by chemiluminescent immunoassay. TSH Date Value 02/05/2024 1.790 mIU/L 02/20/2023 1.420 mIU/L 05/15/2021 2.830 uU/mL ) Hemoglobin A1C (%) Date Value 02/20/2023 5.1 Insulin Date Value Ref Range Status 03/14/2024 3.9 3.0 - 25.0 mU/L Final Assessment/Plan: Jennifer Manning is a 43 year old yo with Class I obesity who presented today for follow up for supervised weight loss to treat and prevent related co-morbidities. (R53.81, R53.83) Malaise and fatigue (primary encounter diagnosis) (E03.9) Hypothyroidism, unspecified type 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, inflammatory (HCC) (G43.809) Other migraine without status migrainosus, not intractable (Z72.820) Poor sleep (E61.1) Iron deficiency (E66.811, Z68.31) Class 1 obesity without serious comorbidity with body mass index (BMI) of 31.0 to31.9 in adult, unspecified obesity type - reviewed tracking food - reviewed back to basics- initial weight mgmt- whole foods and eliminating processed foods- will try to eliminate dairy - high protein - antiinflammatory diet - discussed sleep hygiene and consult to sleep medicine and GO TO SLEEP program. Declines today- maybe next visit - increase topiramate to BID (start at 1/2 tab at night) - An overall goal of 150-200 minutes per week of exercise has been effective in weight loss and maintenance. Prescription instructions reviewed with patient as applicable. Potential red flag symptoms discussed with the patient. Reviewed appropriate action plan to take ifred flag symptoms occur. Patient agreeable to treatment plan. Follow up in 3 months or sooner if needed I spent a total of 30 minutes on the date of the service which included preparing to see the patient, [id number] patient care, completing clinical documentation, obtaining and/or reviewing separately obtained history, performing a medically appropriate examination, counseling and educating the pat ient/family/caregiver, and ordering medications, tests, or procedures. Marleni Avendaño MD, FACOG, DABOM documented [facility] NoteHNO ID: [id number] Author: MARLENI ALMONTE MD Service: ? Author Type: Physician Type: Progress Notes Filed: 05/18/2024 14:37 Note Text: Some documentation from previous visit of 01/28/2024 was copied and pasted, documentation has been reviewed and edited as necessary for today's visit. Patient Summary: Jennifer is a 43 year old Female who presents for follow-up evaluation of obesity/weight management to treat and prevent related co-morbidities. In our previous visits we have discussed lifestyle intervention including a nutrition recommendations and physical activity optimization. Her last office visit was 3.5 months ago. Assessment/plan from last visit: - repeat labs today- ordered patient advised to do fasting - advised on tracking food daily - continue whole foods, low carb, high protein - continue phentermine and topiramate - >5% TBW loss in initial 3 months of phentermine use qualifying for long-term off label treatment of obesity - discussed adding in resistance training and importance of this and impact it will have on metabolism. Interval History PT specifies the following items as new or significant updates since the last appointment: -feeling bloating and gassy - changed to core power 42g drinks- wonders If those are impacting her gut - gut and mind keep her up at night - daughter has issues with dairy ?? Maybe she does too - saw endocrinology for low insulin- labs all look good - exhausted during the day to exercise, stress Is high too - no SE with medications. STARTING WEIGHT WITH first dose phentermine 209lbs(05/22/2022) went to 190lbs Then restarted 10/18 195lbs Date: Wt: 05/18/2024 179 lb 01/28/2024 172 lb 10/29/2023 175lb 08/13/2023 178lb 05/16/2023 177 lb (80.3 kg) 02/20/2023 184 lb (83.5 kg) Weight loss since last vist: +7lb Anti-obesity medications: Phentermine. Benefit:suppression appetite Adverse effects: none Anti-obesity medications: Topiramate. Benefit: decreased food noise? Adverse effects: none Weight promoting medications: Other celexa Previous Diet (initial appointment): Dietary changes: B-protein shake or Quest Bar or yogurt and cottage cheese L- yogurt and cottage and berries, 2 eggs, veggies, cheese or protein D- Tries not to eat late- PROTEIN first veggies and GF pasta (measures) if she gets to it S- light and fit popcorn, Fluids - Eating 3 meals a day, including breakfast Increasing water intake Controlling portions Identify hunger and satiety cues Increasing protein Reducing carbohydrates Current Barriers: poor sleep hygiene and inadequate sleep duration poor sleep hygiene and inadequate sleep duration Exercise: trying to walk but exercise is decreased due to kids SPORTS Stress: stable Sleep: not great- goes to bed late- 4-5 hrs maybe Estimated Creatinine Clearance: 107.2 mL/min (based on SCr of 0.72 mg/dL). 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 multivitamin tablet Take 1 tablet by mouth once daily. topiramate (TOPAMAX) 50 mg tablet Take 1 tablet by mouth once daily. 90 tablet 1 levonorgestrel (MIRENA) 21 mcg/24 hours (8 yrs) 52 mg IUD 1 Each by INTRAUTERINE route as directed. 1 Each 0 citalopram (CELEXA) 20 mg tablet Take 1 tablet by mouth once daily. 90 tablet 1 levothyroxine (SYNTHROID) 75 mcg tablet Take 1 tablet by mouth daily before breakfast. 90 tablet 1 fexofenadine (LINDSAY) 60 mg tablet Take 60 mg by mouth as needed (allergies). cyanocobalamin (VITAMIN B-12) 1,000 mcg tab Take 1 tablet by mouth once daily. phenazopyridine (PYRIDIUM) 200 mg tablet Take 1 tablet by mouth three times a day as needed. (Patient not taking: Reported on 05/18/2024) 9 tablet 0 MEDICATION, NON-DATABASE Inject 2 Each subcutaneously every other week. Allergy shots (Patient not taking: Reported on 05/18/2024) No current facility-administered medications for this visit. ROS denies CP, Dizziness, palpitations, no brain fog, no paraesthesia ROS/Fam Hx pertaining to AOMs: >Phentermine: No uncontrolled HTN, No CVD Hx or hx of seizure disorder. No MAOI inhibitor use. No drug abuse hx. Crcl > 15. >Topiramate/zonisamide: No seizure or kidney stone hx. hx of migraines, yes hx of poor sleep. yes Child bearing age. >Qsymia: see above >Contrave: No contraindications. Could affect mood. No uncontrolled HTN or hx of seizure disorder. No MAOI inhibitor use. No opiate use. >Saxenda/Wegovy/Ozempic: Cost. Ins coverage? >Metformin: No contraindications or me (more content not included)...[facility]08-30-2024 Telephone encounter Note* Telephone Encounter - Mirian Olguin RN - 03/27/2024 11:21 AM EDT Patient notified and voiced understanding. Mirian Olguin RN [facility]08-30-[facility] Miscellaneous Notes* Telephone Encounter - Mirian Olguin RN - 03/27/2024 11:21 AM EDT Patient notified and voiced understanding. Mirian Olguin RN * Telephone Encounter - Mirian Olguin RN - 03/27/2024 9:33 AM EDT Left message to call office. Mirian Olguin RN * Telephone Encounter - Mirian Olguin RN - 03/27/2024 9:33 AM EDT ----- Message from Marleni Freeman MD sent at 03/27/2024 9:21 AM EDT ----- Please notify patient- Based on urinalysis it looks like she has UTI- I will treat going into weekend- we may need to change ABX when culture comes back. Push fluids. [facility] Telephone encounter Note * Telephone Encounter - Mirian Olguin RN - 03/27/2024 9:33 AM EDT Left message to call office. Mirian Olguin RN [facility]08-30-2024 Telephone encounter Note* Telephone Encounter - Mirian Olguin RN - 03/27/2024 9:33 AM EDT ----- Message from Marleni Freeman MD sent at 03/27/2024 9:21 AM EDT ----- Please notify patient- Based on urinalysis it looks like she has UTI- I will treat going into weekend- we may need to change ABX when culture comes back. Push fluids. [facility]08-20-2024 Telephone encounter Note* Telephone Encounter - Doris Michele RN - 03/17/2024 8:42 AM EDT Last weight mgmt f/u was 01/28/24 and she is to return in 3 months from then. Only 30 tablets were given at appointment. Doris Michele RN [facility]08-20-2024 Miscellaneous Notes* Telephone Encounter - Doris Michele RN - 03/17/2024 8:42 AM EDT Last weight mgmt f/u was 01/28/24 and she is to return in 3 months from then. Only 30 tablets were given at appointment. Doris Michele RN [facility] Instructions* Patient Instructions* Augusta Anderson MD - 03/09/2024 9:29 AM EDT Please do labs on fasting at 8 am Please hold any supplements including Multivitamin for 5 days before the labs are drawn documented in this encounter[facility]24 NoteHNO ID: [id number] Author: AUGUSTA ANDERSON MD Service: ? Author Type: Physician Type: Progress Notes Filed: 03/09/2024 18:13 Note Text: [facility] Initial Clinic Visit Note Consulted by: Marleni Freeman MD (OBGYN) Chief Complaint: Low insulin levels HPI: This is a 43 year old female who presents with low insulin levels She has a hx of Crohn's disease at the age of 25 years and reports she usually will be able to tolerate abdominal pains. And then she was also diagnosed with alopecia areata. She is not taking any medications for Cronh's and gluten free diet is helping. She was seeing dermatology and was receiving steroid shots, which she has not had for several years now. 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 Freeman for adrenal insufficiency and low insulin levels Any symptoms: She reports she always has high energy, lately feels slightly tired than usual No lightheadedness, dizziness No N/V, diarrhea, and rather than constipation lately No skin pigmentation Supplements over the counter- MVT, B12, demonos due to bladder infections PAST MEDICAL HISTORY: 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 No date: Thyroid disease PAST SURGICAL HISTORY: PAST SURGICAL HISTORY No date: ABDOMINAL SURGERY HX No date: APPENDECTOMY HX 10/25/2017: DELIVERY ONLY Comment: tubal ligation 07/28/2019: COLONOSCOPY SCREENING 11/08/2022: COLONOSCOPY SCREENING 09/09/2020: LAP SURG APPENDECTOMY No date: PAST SURGICAL HISTORY OF Comment: 2 c sects 10/25/2017: PCHG TUBAL W/ ; Bilateral FAMILY HISTORY: FAMILY HISTORY Problem Relation Age of Onset Rheumatologic disease Mother Arthritis Mother other (Raynauds) Mother other (mitral valve) Mother Breast Cancer Mother Allergies Sister other (mitral valave) Sister Diabetes Maternal Grandmother Cancer Maternal Grandfather Heart Maternal Grandfather Diabetes Maternal Grandfather Heart Paternal Grandfather Cancer Maternal Aunt breast No Ocular Disease Other SOCIAL HISTORY: Social History Tobacco Use Smoking status: Never Smokeless tobacco: Never Vaping Use Vaping Use: Never used Substance Use Topics Alcohol use: Yes Comment: 2-3 glasses of wine per week, not while Drug use: No MEDICATIONS: Current Outpatient Medications Medication Sig multivitamin tablet Take 1 tablet by mouth once daily. MEDICATION, NON-DATABASE Inject 2 Each subcutaneously every other week. Allergy shots topiramate (TOPAMAX) 50 mg tablet Take 1 tablet by mouth once daily. levonorgestrel (MIRENA) 21 mcg/24 hours (8 yrs) 52 mg IUD 1 Each by INTRAUTERINE route as directed. citalopram (CELEXA) 20 mg tablet Take 1 tablet by mouth once daily. levothyroxine (SYNTHROID) 75 mcg tablet Take 1 tablet by mouth daily before breakfast. fexofenadine (LINDSAY) 60 mg tablet Take 60 mg by mouth as needed (allergies). cyanocobalamin (VITAMIN B-12) 1,000 mcg tab Take 1 tablet by mouth once daily. No current facility-administered medications for this visit. ALLERGIES: ALLERGIES Allergen Reactions Morphine GI Upset, Vomiting Seasonal Allergies Cough, Itching sneezing REVIEW OF SYSTEMS: GENERAL: No weight loss, malaise or fevers HEENT: Negative for frequent or significant headaches, No changes in hearing or vision, no nose bleeds or other nasal problems NECK: Negative for lumps, goiter, pain and significant neck swelling RESPIRATORY: Negative for cough, hemoptysis, wheezing, COPD, dyspnea or shortness of breath CARDIOVASCULAR: Negative for chest pain, leg swelling, hypertension, CHF or palpitations GI: No nausea, vomiting, or diarrhea MUSCULOSKELETAL: Negative for joint pain or swelling, back pain or muscle pain SKIN: Negative for lesions, rash, and itching ENDOCRINE: Negative for cold or heat intolerance, polyuria, polydipsia and goiter NEURO: No history of headaches, syncope, paralysis, seizures or tremors All other reviewed and negative other than HPI. PHYSICAL EXAM: BP 126/80 (BP Site: Right Arm, BP Position: Sitting, BP Cuff Size: Regular Adult) Pulse 72 Resp 18 Ht 167.6 cm (5' 6) Wt 81.6 kg (179 lb 12.8 oz) LMP 04/25/2021 SpO2 100% BMI 29.02 kg/m? Body mass index is 29.02 kg/m?. General Appearance: Well appearing, alert, in no acute distress, well-hydrated, well nourished.. Skin: Skin color, texture, turgor normal, no suspicious rashes or (more content not included)...[facility]08-12-2024 History of Present illness Narrative* Augusta Anderson MD - 03/09/2024 8:52 AM EDT [facility] Initial Clinic Visit Note Consulted by: Marleni Freeman MD (OBGYN) Chief Complaint: Low insulin levels HPI: This is a 43 year old female who presents with low insulin levels She has a hx of Crohn's disease at the age of 25 years and reports she usually will be able to tolerate abdominal pains. And then she was also diagnosed with alopecia areata. She is not taking any medications for Cronh's and gluten free diet is helping. She was seeing dermatology and was receiving steroid shots, which she has not had for several yearsnow. 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 Freeman for adrenal insufficiency and low insulin levels Any symptoms: She reports she always has high energy, lately feels slightly tired than usual No lightheadedness, dizziness No N/V, diarrhea, and rather than constipation lately No skin pigmentation Supplements over the counter- MVT, B12, demonos due to bladder infections PAST MEDICAL HISTORY: 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 No date: Thyroid disease PAST SURGICAL HISTORY: PAST SURGICAL HISTORY No date: ABDOMINAL SURGERY HX No date: APPENDECTOMY HX 10/25/2017: DELIVERY ONLY Comment: tubal ligation 07/28/2019: COLONOSCOPY SCREENING 11/08/2022: COLONOSCOPY SCREENING 09/09/2020: LAP SURG APPENDECTOMY No date: PAST SURGICAL HISTORY OF Comment: 2 c sects 10/25/2017: PCHG TUBAL W/ ; Bilateral FAMILY HISTORY: FAMILY HISTORY Problem Relation Age of Onset Rheumatologic disease Mother Arthritis Mother other (Raynauds) Mother other (mitral valve) Mother Breast Cancer Mother Allergies Sister other (mitral valave) Sister Diabetes Maternal Grandmother Cancer Maternal Grandfather Heart Maternal Grandfather Diabetes Maternal Grandfather Heart Paternal Grandfather Cancer Maternal Aunt breast No Ocular Disease Other SOCIAL HISTORY: Social History Tobacco Use Smoking status: Never Smokeless tobacco: Never Vaping Use Vaping Use: Never used Substance Use Topics Alcohol use: Yes Comment: 2-3 glasses of wine per week, not while Drug use: No MEDICATIONS: Current Outpatient Medications Medication Sig multivitamin tablet Take 1 tablet by mouth once daily. MEDICATION, NON-DATABASE Inject 2 Each subcutaneously every other week. Allergy shots topiramate (TOPAMAX) 50 mg tablet Take 1 tablet by mouth once daily. levonorgestrel (MIRENA) 21 mcg/24 hours (8 yrs) 52 mg IUD 1 Each by INTRAUTERINE route as directed. citalopram (CELEXA) 20 mg tablet Take 1 tablet by mouth once daily. levothyroxine (SYNTHROID) 75 mcg tablet Take 1 tablet by mouth daily before breakfast. fexofenadine (LINDSAY) 60 mg tablet Take 60 mg by mouth as needed (allergies). cyanocobalamin (VITAMIN B-12) 1,000 mcg tab Take 1 tablet by mouth once daily. No current facility-administered medications for this visit. ALLERGIES: ALLERGIES Allergen Reactions Morphine GI Upset, Vomiting Seasonal Allergies Cough, Itching sneezing REVIEW OF SYSTEMS: GENERAL: No weight loss, malaise or fevers HEENT: Negative for frequent or significant headaches, No changes in hearing or vision, no nose bleeds or other nasal problems NECK: Negative for lumps, goiter, pain and significant neck swelling RESPIRATORY: Negative for cough, hemoptysis, wheezing, COPD, dyspnea or shortness of breath CARDIOVASCULAR: Negative for chest pain, leg swelling, hypertension, CHF or palpitations GI: No nausea, vomiting, or diarrhea MUSCULOSKELETAL: Negative for joint pain or swelling, back pain or muscle pain SKIN: Negative for lesions, rash, and itching ENDOCRINE: Negative for cold or heat intolerance, polyuria, polydipsia and goiter NEURO: No history of headaches, syncope, paralysis, seizures or tremors All other reviewed and negative other than HPI. PHYSICAL EXAM: BP 126/80 (BP Site: Right Arm, BP Position: Sitting, BP Cuff Size: Regular Adult) Pulse 72 Resp18 Ht 167.6 cm (5' 6) Wt 81.6 kg (179 lb 12.8 oz) LMP 04/25/2021 SpO2 100% BMI 29.02 kg/m Body mass index is 29.02 kg/m . General Appearance: Well appearing, alert, in no acute distress, well-hydrated, well nourished.. Skin: Skin color, texture, turgor normal, no suspicious rashes or lesions. Eyes: Anicteric sclera. Pupils are equally round and reactive to light. Extraocular movements are intact. . Neck: Supple, no adenopathy; thyroid symmetric, normal size, no bruits. Lungs: Lungs clear to auscultation. No wheezing, rhonchi, rales. Heart: RRR without murmur, gallop, or rubs. No ectopy. Abdomen: Normal abdominal exam, Abdomen soft, non-tender. Bowel sounds normal. No masses, organomegaly. Extremities: No deformities, edema, skin discoloration, clubbing or cyanosis. Good capillary refill. . Musculoskeletal: No joint swelling, deformity, or tenderness. Peripheral Pulses: Normal. Neurologic: Gait normal. Reflexes normal and symmetric. Sensation grossly intact.. LABS: Latest Ref Rng 02/20/2023 02/05/2024 Protein, Total 6.3 - 8.0 g/dL 7.9 Albumin 3.9 - 4.9 g/dL 4.6 Calcium 8.5 - 10.2 mg/dL 9.2 Bilirubin, Total 0.2 - 1.3 mg/dL 0.8 Alkaline Phosphatase 34 - 123 U/L 50 AST 13 - 35 U/L 14 ALT 7 - 38 U/L 10 Glucose 74 - 99 mg/dL 81 BUN 7 - 21 mg/dL 12 Creatinine 0.58 - 0.96 mg/dL 0.72 Sodium 136 - 144 mmol/L 135 (L) Potassium 3.7 - 5.1 mmol/L 3.6 (L) Chloride 98 - 107 mmol/L 105 CO2 22 - 30 mmol/L 22 Anion Gap 8 - 15 mmol/L 8 eGFR >=60 mL/min/1.73m 106 Cholesterol, Total <200 mg/dL 155 Triglyceride <150 mg/dL 55 HDL Cholesterol >39 mg/dL 66 Non HDL Cholesterol <130 mg/dL 89 Fasting Time hrs 12 VLDL Cholesterol <30 mg/dL 11 TC:HDL Ratio <5.10 2.35 LDL Cholesterol <100 mg/dL 78 LDL:HDL Ratio <2.54 1.18 Hemoglobin A1C 4.3 - 5.6 % 5.1 Estimated Average Glucose mg/dL 100 Insulin 3.0 - 25.0 mU/L 2.8 (L) 2.1 (L) TSH 0.270 - 4.200 mIU/L 1.790 Legend: (L) Low ASSESSMENT : 43 year old female who is presenting after referral by OBGYN in regards to low insulin levels and ?adrenal insufficiency PLAN: 1. Inappropriately low serum insulin Patient is not on any exogenous insulin Discussed the usual risk with low levels is glucose intolerance and diabetes, while the situation is not of that concern at this time Her glucose levels have been normal throughout this time, since the last she was found to have low insulin levels. She is not any supplements either which could cause low levels of insulin Discussed possibility of insulin antibodies which might be causing the total levels to be low, and hence discussed checking free insulin and insulin antibody levels, along with glucose levels. 2. Adrenal insufficiency: Clinically she does not appear to have any symptoms or signs of AI. She has used intermittent lesional steroids in the past for alopecia, but has not been on any chronic steroids for several years now- this is the only risk factor. I discussed checking fasting 8 am Cortisol, ACTH levels as recommended by her OBGYN FOLLOW UP: 4 weeks Advised patient to call or send My Chart message for results, within 2 weeks of having the tests obtained. The patient is to continue to follow up with his/her PCP and with other consultants regarding his/her other medical problems. I will share a copy of today's office note to the consulting physician Marleni Almonte I spent a total of 55 minutes on the date of the service which included preparing to see the patient, [id number] patient care, completing clinical documentation, obtaining and/or reviewing separately obtained history, performing a medically appropriate examination, counseling and educating the pat ient/family/caregiver, ordering medications, tests, or procedures, and independently interpreting results (not separately reported). Medical Decision Making: Medical Decision Making Level: 1 - N/A Augusta Anderson MD Endocrinology Associate Staff [facility] Endocrinology and Metabolism [place] [phone] documented in this encounter[facility] NoteHNO ID: [id number] Author: MARLENI ALMONTE MD Service: ? Author Type: Physician Type: Progress Notes Filed: 03/03/2024 08:49 Note Text: Code Official offered: Patient declines. Jennifer is a 43 year old who presents for an annual gynecologic exam without complaints. Menses: no menses - Mirena IUD. Contraception: IUD HPV vaccine: No Last Pap: 07/20/2021 normal HPV: 07/19/2021 negative History of abnormal pap: No Last mammogram: 2023normal Sexually active: Yes History of STDS: None Patient concerns for STD exposure: No. Hot flashes: No Night sweats: No Vaginal dryness: No Exercise: routine Diet: balanced OB History T1 L3 SAB1 IAB0 Ectopic0 Multiple0 Live Births3 Comment: G1- low fluid, placental infarcts, went into labor, had emergency c/s nonreassuring FHTs, 2 vessel cords G2 SAB, no DANDC, early G3- no problems w/ this , scheduled c/s [employer] History LMP: 04/25/2021, IUD Age at Menarche: Age at First : Age at Menopause: [employer] History Comments: Sexual Activity: Yes; Male Contraception: Tubal Ligation, I.U.D. 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 No date: Thyroid diseasePAST SURGICAL HISTORY No date: ABDOMINAL SURGERY HX No date: APPENDECTOMY HX 10/25/2017: DELIVERY ONLY Comment: tubal ligation 07/28/2019: COLONOSCOPY SCREENING 11/08/2022: COLONOSCOPY SCREENING 09/09/2020: LAP SURG APPENDECTOMY No date: PAST SURGICAL HISTORY OF Comment: 2 c sects 10/25/2017: PCHG TUBAL W/ ; Bilateral FAMILY HISTORY Problem Relation Age of Onset Rheumatologic disease Mother Arthritis Mother other (Raynauds) Mother other (mitral valve) Mother Breast Cancer Mother Allergies Sister other (mitral valave) Sister Diabetes Maternal Grandmother Cancer Maternal Grandfather Heart Maternal Grandfather Diabetes Maternal Grandfather Heart Paternal Grandfather Cancer Maternal Aunt breast No Ocular Disease Other SOCIAL HISTORY Social History Tobacco Use Smoking status: Never Smokeless tobacco: Never Vaping Use Vaping Use: Never used Substance Use Topics Alcohol use: Yes Comment: 2-3 glasses of wine per week, not while Drug use: No REVIEW OF SYSTEMS Abdomen: No abdominal pain, nausea, vomiting, diarrhea, or constipation. No bloating, early satiety, indigestion, or increased flatulence. Bladder: No dysuria, gross hematuria, urinary frequency, urinary urgency, or incontinence. Breast: No breast lumps, nipple d/c, overlying skin changes, redness or skin retraction. Allergies and current medication updated:Yes EXAM: BP 102/62 Ht 5' 5.5 (1.66m) Wt 178 lb 3.2 oz (80.8kg) LMP 04/25/2021 BMI 29.19 kg/(m2). GENERAL: pleasant, female in no apparent distress HEENT: Normocephalic, atraumatic, mucus membranes moist, and no lesions NECK: Supple, full range of motion, no adenopathy, and thyroid normal DERMATOLOGY: Normal, without lesions, non-icteric, and non-hirsute BREAST: soft, non-tender, symmetric, no dominant mass, normal nipple-areolar complex, no lymphadenopathy, and no nipple discharge ABDOMEN: soft, non-tender, and no masses PELVIC: external genitalia normal, normal Bartholin's glands, urethra, Terry's glands, no vulvar lesions, no cervical lesions, good vaginal support, physiologic discharge present, normal appearing perineal body and perianal region, IUD strings visible BIMANUAL: uterus normal size, shape and consistency, no adnexal masses, and non-tender RECTOVAGINAL: deferred. NEURO: alert and oriented x3,exam grossly non-focal EXTREMITIES: normal ASSESSMENT/PLAN: 1) Health maintenance: Pap/HPV up to date. Mammogram starting age 40. Nutrition, exercise and routine health maintenance exams reviewed. Calcium/Vitamin D supplementation information provided. Colon cancer screening: up to date with screening 2) Contraception: IUD. Contraceptive options reviewed and information provided. 3) STD screening: Declined STD check. 4) Follow up one year or sooner as needed 5) has appt with endocrinology Marleni [facility]enda[facility]08-06-2024 History of Present illness Narrative* Marleni Almonte MD - 03/03/2024 8:13 AM EDT Code Official offered: Patient declines. Jennifer is a 43 year old who presents for an annual gynecologic exam without complaints. Menses: no menses - Mirena IUD. Contraception: IUD HPV vaccine: No Last Pap: 07/20/2021 normal HPV: 07/19/2021 negative History of abnormal pap: No Last mammogram: 2023normal Sexually active: Yes History of STDS: None Patient concerns for STD exposure: No. Hot flashes: No Night sweats: No Vaginal dryness: No Exercise: routine Diet: balanced OB History T1 L3 SAB1 IAB0 Ectopic0 Multiple0 Live Births3 Comment: G1- low fluid, placental infarcts, went into labor, had emergency c/s nonreassuring FHTs, 2 vessel cords G2 SAB, no D&C, early G3- no problems w/ this , scheduled c/s [employer] History LMP: 04/25/2021, IUD Age at Menarche: Age at First : Age at Menopause: [employer] History Comments: Sexual Activity: Yes; Male Contraception: Tubal Ligation, I.U.D. 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 No date: Thyroid diseasePAST SURGICAL HISTORY No date: ABDOMINAL SURGERY HX No date: APPENDECTOMY HX 10/25/2017: DELIVERY ONLY Comment: tubal ligation 07/28/2019: COLONOSCOPY SCREENING 11/08/2022: COLONOSCOPY SCREENING 09/09/2020: LAP SURG APPENDECTOMY No date: PAST SURGICAL HISTORY OF Comment: 2 c sects 10/25/2017: PCHG TUBAL W/ ; Bilateral FAMILY HISTORY Problem Relation Age of Onset Rheumatologic disease Mother Arthritis Mother other (Raynauds) Mother other (mitral valve) Mother Breast Cancer Mother Allergies Sister other (mitral valave) Sister Diabetes Maternal Grandmother Cancer Maternal Grandfather Heart Maternal Grandfather Diabetes Maternal Grandfather Heart Paternal Grandfather Cancer Maternal Aunt breast No Ocular Disease Other SOCIAL HISTORY Social History Tobacco Use Smoking status: Never Smokeless tobacco: Never Vaping Use Vaping Use: Never used Substance Use Topics Alcohol use: Yes Comment: 2-3 glasses of wine per week, not while Drug use: No REVIEW OF SYSTEMS Abdomen: No abdominal pain, nausea, vomiting, diarrhea, or constipation. No bloating, early satiety, indigestion, or increased flatulence. Bladder: No dysuria, gross hematuria, urinary frequency, urinary urgency, or incontinence. Breast: No breast lumps, nipple d/c, overlying skin changes, redness or skin retraction. Allergies and current medication updated:Yes EXAM: BP 102/62 Ht 5' 5.5 (1.66m) Wt 178 lb 3.2 oz (80.8kg) LMP 04/25/2021 BMI 29.19 kg/(m^2). GENERAL: pleasant, female in no apparent distress HEENT: Normocephalic, atraumatic, mucus membranes moist, and no lesions NECK: Supple, full range of motion, no adenopathy, and thyroid normal DERMATOLOGY: Normal, without lesions, non-icteric, and non-hirsute BREAST: soft, non-tender, symmetric, no dominant mass, normal nipple-areolar complex, no lymphadenopathy, and no nipple discharge ABDOMEN: soft, non-tender, and no masses PELVIC: external genitalia normal, normal Bartholin's glands, urethra, Terry's glands, no vulvar lesions, no cervical lesions, good vaginal support, physiologic discharge present, normal appearing perineal body and perianal region, IUD strings visible BIMANUAL: uterus normal size, shape and consistency, no adnexal masses, and non-tender RECTOVAGINAL: deferred. NEURO: alert and oriented x3,exam grossly non-focal EXTREMITIES: normal ASSESSMENT/PLAN: 1) Health maintenance: Pap/HPV up to date. Mammogram starting age 40. Nutrition, exercise and routine health maintenance exams reviewed. Calcium/Vitamin D supplementation information provided. Colon cancer screening: up to date with screening 2) Contraception: IUD. Contraceptive options reviewed and information provided. 3) STD screening: Declined STD check. 4) Follow up one year or sooner as needed 5) has appt with endocrinology Marleni Avendaño MD [facility] Telephone encounter Note * Telephone Encounter - Marleni Almonte MD - 02/10/2024 2:27 PM EDT ordered [facility]07-15-2024 Miscellaneous Notes* Telephone Encounter - Marleni Almonte MD - 02/10/2024 2:27 PM EDT ordered * Telephone Encounter - Charissa Escobar RN - 02/07/2024 4:41 PM EDT Patient notified. She thought she seen an waist cutter years ago at [facility], but it was a framework developer. Consult order for Endo pending. Charissa Escobar RN * Telephone Encounter - Charissa Escobar RN - 02/07/2024 4:22 PM EDT Left message for patient to call office. Charissa Escobar RN * Telephone Encounter - Charissa Escobar RN - 02/07/2024 4:21 PM EDT ----- Message from Marleni Freeman MD sent at 02/07/2024 12:52 PM EDT ----- Please call patient- who if any does she see for endocrinology? I am concerned now for ? Addisons disease (adrenal insufficiency)- given her history of autoimmune disorders, thyroid disease, and now I have two low insulin levels- her symptoms of Fatigue, joint pain. I am just concerned and would like a further work up since that is not my speciality. [facility] Note * Telephone Encounter - Charissa Escobar RN - 02/07/2024 4:41 PM EDT Patient notified. She thought she seen an waist cutter years ago at [facility], but it was a framework developer. Consult order for Endo pending. Charissa Escobar RN [facility] Telephone encounter Note* Telephone Encounter - Charissa Escobar RN - 02/07/2024 4:22 PM EDT Left message for patient to call office. Charissa Escobar RN [facility]-12-[facility] Telephone encounter Note* Telephone Encounter - Charissa Escobar RN - 02/07/2024 4:21 PM EDT ----- Message from Marleni Freeman MD sent at 02/07/2024 12:52 PM EDT ----- Please call patient- who if any does she see for endocrinology? I am concerned now for ? Addisons disease (adrenal insufficiency)- given her history of autoimmune disorders, thyroid disease, and now I have two low insulin levels- her symptoms of Fatigue, joint pain. I am just concerned and would like a further work up since that is not my speciality. [facility] Instructions* Patient Instructions* Marelni Amlonte MD - 01/28/2024 10:24 AM EDT Images from the original note were not included. DANE ESPINOZA ELENA [employer] on [employer] Educational Podcasts: The Dr. Navarro Show- Real Conversations about Health and Weight * April 15, 2023 what you need to know about Carbohydrates and Weight *March 25, 2023 Protein why we need it and how to eat more Protein *March 04, 2023 Menopause and Weight Gain- All the Details with Dr. Tomasa Mcdermott *February 11, 2023 The Science Behind Ultra Processed Food and Weight Gain *November 26, 2022 Effects of sleep and Stress of Weight and Health with Dr. Debbie Porter-Withers, DO * November 19, 2022 Recognizing and Resolving Emotional Eating with Dr. Dhaliwal Obesity: A Disease *November 19, 2022 Episode 80 Clinical conversations: The Role of Physical Activity in Weight Management * March 01, 2023 Episode 84 Clinical Conversations: NAFLD, The [place] Disease of Metabolic Syndrome *February 282019 Episode 20 Article Reviews: The Role Ultra Processed Diets Play in Weight Gain *February 10, 2020 Episode 21 Clinical Conversations: Breaking Weight Plateaus Why You May Want to Weigh Yourself Every Day At any given moment, an estimated 24% of men and 38% of women in the [place] are trying to lose weight (1Trusted Source). Meanwhile, obesity has skyrocketed and working-age adults are gaining about 2.2 pounds (1 kg) annually, on average (2Trusted Source, 3Trusted Source). Recent studies have shown that daily self-weighing may be a powerful tool for both losing and maintaining weight. However, many people believe that weighing yourself daily contributes to bad mental health and disordered eating habits. So what should you believe? This article sets the record straight on whether you should start weighing yourself daily. Weighing Yourself Daily Helps You Lose More Weight The simple act of self-weighing has received lots of attention and stirred up controversy for years. Some people have even thrown away their scale, claiming that it s a highly misleading weight loss tool that results in bad self-esteem and disordered eating habits (4, 5). However, recent studies generally agree that daily weighing is associated with greater weight loss and less weight regain than less-frequent self-weighing (6Trusted Source, 7, 8, 9). One study showed that participants who weighed themselves daily for six months lost 13 more pounds (6 kg), on average, than those who weighed themselves less frequently (10. What s more, those who weigh themselves daily tend to adopt more favorable weight control behaviors, exercise better restraint toward food and eat impulsively less often (10, 11). Interestingly, adopting healthy weight-related behaviors has been shown to be especially important when people emerge from adolescence into adulthood (12). One study in participants aged 18-25 showed that daily self-weighing resulted in better weight lossthan less-frequent weighing (13). The researchers concluded that daily self-weighing is a particularly valuable self-regulation tool for this age group. Furthermore, another study showed that people who weighed themselves every day ate 347 fewer calories per day than those who did not. After six months, the group that weighed themselves daily ended up losing a whopping 10 times more weight than the control group (14). BOTTOM LINE: Daily self-weighing may cause people to lose more weight and gain less of it back, compared to less-frequent weighing. Daily Weighing May Motivate You and Improve Self-Control Being aware of your weight is a gonzalez factor in successful weight loss. Awareness of your weight trend -- that is, whether your weight is going up or down -- is also important. In fact, weighing yourself more often is linked to weight control, while weighing yourself less often has been associated with weight gain. One study found that participants who weighed themselves less often were more likely to report increased calorie intake and decreased restraint toward food (15). Self-weighing promotes self-regulation and awareness of your weight trend and weight-related behaviors. That s why it generally results in greater weight loss (14). Although the exact number on the scale may be unimportant, monitoring weight loss progress motivates you to keep going and generally improves weight-related behavior and self-control. Also, by being more aware of your weight, you can quickly react to lapses in your progress and makenecessary adjustments to maintain your goal. Since most people are able to sustain a habit of daily self-weighing, the adherence and acceptability of it is generally quite high (16Trusted Source, 17, 18, 19, 20). It s a minor addition to your daily routine that may help you reap major benefits for your weight. BOTTOM LINE: Daily self-weighing helps you maintain awareness of your weight. Monitoring weight loss progress further motivates you to keep going and improves your self-control. Daily Weighing Helps You Keep the Weight Off Frequent self-weighing has been shown to be a great way to prevent weight gain in the long-term (15, 2, 22, 23). One study investigated how much self-weighing frequency predicted weight manager change two years in working adults (24Trusted Source). It found that there was a significant link between self-weighing frequency and weight change. In normal-weight individuals, daily weighing resulted in a slight weight loss, while those who weighed themselves monthly gained 4.4 pounds (2 kg), on average. However, the largest difference was in overweight individuals. Those who weighed themselves daily lost 10 pounds (4.4 kg), while those who weighed themselves monthly gained 2.2 pounds (1 kg), on average (24). Another study came to a similar conclusion, showing that self-weighing was a significant predictor of body weight over time. Participants lost an extra pound (0.45 kg) of body weight for every 11 days they self-weighed (25). The main reason why this is so effective is that consistent self-weighing allows you to catch weight gain before it escalates and make the necessary changes to prevent more weight gain (15). BOTTOM LINE: Daily weighing may help prevent long-term weight gain, especially in overweight people. Weighing Yourself Daily Is Not as Bad as People Think Not so long ago, frequent self-weighing was thought to be damaging to your mental health. This notion still exists today. Self-weighing is claimed to have negative effects on your mood by continuously reinforcing that your body size is not ideal or appropriate, resulting in an increased risk of developing an eating disorder (4Trusted Source, 5Trusted Source). Although this may be true in a small group of people, most studies have repeatedly come to a different conclusion (9Trusted Source, 26Trusted Source, 27Trusted Source). The available research suggests there is very little evidence that frequent self-weighing is a cause of negative mood or body dissatisfaction, especially as part of a weight loss program (8Trusted Source, 12Trusted Source, 14Trusted Source, 26Trusted Source, 28Trusted Source, 29Trusted Source). In fact, studies indicate that frequent self-weighing may increase body satisfaction, rather than decrease it (9Trusted Source). That said, there is a group of people who may develop a negative body image, low self-esteem or undesirable eating behaviors as a result of daily self-weighing (30Trusted Source). If you find that daily self-weighing causes you to have bad feelings about yourself or your eating behaviors, you should find other methods to measure your progress. BOTTOM LINE: Most studies do not link frequent self-weighing to negative mood or body dissatisfaction. Some evenassociate them with higher body satisfaction. How to Weigh Yourself for Best Results The best time to weigh yourself is right after you wake up, after going to the bathroom and before you eat or drink. Your weight tends to fluctuate less in the morning than later in the day when you ve had plenty to eat and drink. That is also why people weigh the least in the morning. Also, it is best if you always weigh yourself in similar clothing each day. However, you need to keep in mind that your weight may fluctuate from day to day and can be affected by many factors, including: What you ate or drank the previous day Bloating or water retention Menstrual cycle Whether you ve had bowel movements recently Therefore, it is important to assess the trend of your weight over a longer period of time, insteadof drawing conclusions from each and every weighing. A basic scale will do just fine. However, many scales also have the ability to measure your body mass index (BMI), body fat percentage and muscle mass, which may help you get a better picture of yourprogress. There are also several apps available for your phone or computer that allow you to easily enter your daily weight and see the trend of your weight change. Happy Scale for iPhone and [place]el for Androidare two such apps. BOTTOM LINE: It is best to weigh yourself right after you wake up, after going to the bathroom and before you eat or drink anything. Other Ways to Track Your Progress Although self-weighing may be a valuable tool, it has some limitations. If you re exercising and gaining muscle, the scale may not show your progress and instead simply show that you have gained weight. While losing weight can indicate progress, a scale does not differentiate between healthy weight (muscle) and unhealthy weight (fat). Therefore, it may be good to add other ways of tracking your progress to your regimen. Here are some examples: Measure circumference: Muscle has much less volume than fat, so your circumference may be decreasing even if your weight stays the same or goes up. Measure body fat percentage: By measuring your body fat percentage, you can observe changes in fat mass, regardless of your weight. Take pictures of yourself regularly: You can observe any changes in your physique by comparing photos of yourself in similar clothing. Note how your clothes feel: Any changes in your weight will probably affect how your clothes fit. Feeling them become looser or tighter is one of the best indicators of changes in your body. BOTTOM LINE: Other ways to track your progress include measuring your circumference, measuring your body fat percentage and taking pictures of yourself. Take Home Message Weighing yourself every day can help increase your awareness of your weight and weight-related behaviors. It may help you lose more weight and prevent you from gaining that weight back in the long-term. Daily self-weighing may just be that extra motivation you need to achieve your weight goals. https://www.Aeropostaleline.com/nutrition/daily-weighing A diet that leaves you feeling full and satisfied over the course of the day leaves less room for wondering about whether you should have a snack when you re bored. 1. Eat regularly throughout the day Try to spread out your calorie intake throughout a regular meal and snack schedule. This may keep you more full and less hungry than eating the same number of calories on a less regular meal schedule(5Trusted Source). If you re feeling content with your food choices for the day, you might be less likely to reach fora snack when you re bored. What s more, knowing that you plan to eat a meal or snack in the next few hours could be motivationto hold back from eating until then. The same meal schedule doesn t work for everyone. Some people like to have three meals and a few snacks each day, while others may prefer to have more or less. Finding a routine that works for you and sticking with it seems to matter more than exactly how many meals and snacks you have each day. 2. Don t restrict your favorite foods If you tend to crave or reach for certain foods when you re bored, you might be tempted to completely stop eating those foods to remove the temptation. However, for some people, research shows this approach might be counterproductive. If you find you re more susceptible to food cravings, depriving yourself of certain foods might make you crave them more in the short term (6Trusted Source, 7Trusted Source, 8Trusted Source). Rather than eliminating the foods you crave, try eating them regularly but in moderation. This might help reduce your urge to snack on those foods when you re bored. 3. Have nutritious, filling snacks When you ve just had a filling meal or snack, you may be less likely to associate feeling bored with wanting to eat. Certain foods are more filling than others. Some particularly filling foods include: Protein: eggs, fish, meat, yogurt, cottage cheese Fiber-rich foods: oatmeal, quinoa, whole grains, legumes, popcorn Foods high in water: fruits, vegetables, soups 4. Eat from a plate Sometimes it s hard to distinguish between hunger and boredom. Ocassationally, there may still be times when you reach for a snack when you re bored. To avoid overeating and letting boredom get the best of your appetite in those moments, portion your snacks onto a plate or serving dish rather than eating them directly from the bag or container. Visual cues, such as the plate size, container size, and even the type of dish you eat from, can all influence how much you eat (17Trusted Source, 18Trusted Source, 19Trusted Source). SUMMARY Eating a healthy diet comprising regular meals, nutritious and filling snacks, and appropriate portion sizes may be more satisfying and thus make it less tempting to eat when you re feeling bored. 5-8. Tune in to your emotions Researchers know that your emotions and mood often influence when, what, and how much you eat. Experts have also suggested that how well you regulate your emotions can influence boredom eating. Poor emotional regulation could potentially lead to an increase in eating when you re feeling bored (22Trusted Source, 23Trusted Source). Practicing self-awareness and developing a better understanding of how your own emotions are influencing your appetite is a great starting place to combat boredom eating. 5. Eat mindfully To be mindful means to be conscious, aware, and focused on the present moment. To eat mindfully means to be aware of your mental and physical states related to food. Some studies have found mindfulness is particularly helpful at helping people reduce eating in response to emotions like boredom (24Trusted Source, 25Trusted Source, 26Trusted Source). Mindful eating is useful in differentiating between boredom and hunger, as it emphasizes paying close attention to your cravings and hunger and fullness cues. 6. Know your hunger signs Being perceptive of your specific hunger and fullness signs may be one of the most effective ways to determine whether you re hungry or bored. When your body is physically hungry and in need of calories for energy, you may notice signs like your stomach growling, a headache, and feelings of weakness or fatigue. On the other hand, when you re experiencing boredom hunger -- or another type of emotional hunger -- you may crave a certain food without any of the traditional signs of physical hunger. 7. Embrace being bored Throughout 2019 and into 2020, people reported feeling bored at higher rates than usual due to the COVID-19 pandemic (27Trusted Source). In certain situations, being bored too often may have detrimental health effects, such as increasedrates of depression and altered eating habits (1Trusted Source, 28Trusted Source). Still, a little boredom is OK and normal to experience from time to time. What s more, research has linked boredom to certain benefits. For example, it may help motivate creativity (29Trusted Source, 30Trusted Source). Trying to prevent boredom or override the feeling by eating and finding other distractions doesn t always work. You might find meaning in the downtime by trying to embrace boredom instead. 8. Take it easy on yourself Remember, it s normal to reach for a snack out of boredom on occasion. When it happens, don t take it as a failure. Rather, use it as a learning experience and opportunity to treat yourself with kindness and compassion. SUMMARY Your mood and emotions play a significant role in psychologically induced hunger like boredom eating. Learning to be aware of your emotions, hunger triggers, and fullness cues can help prevent you from eating because you re bored. 9-11. Understand your environment Much of what you eat is influenced by your environment, and the same goes for when and how much youeat. Here are a few specific ways you can tailor your environment to discourage yourself from boredom eating when the urge strikes. 9. Know your triggers Especially when it comes to psychological types of hunger like boredom eating, external factors often trigger the urge to eat. Identifying the triggers in your life that tend to cause the urge to eat when you re bored is gonzalez to breaking the habit. Some common triggers to be aware of are stress, food availability, and pictures of food. Make notes in a food journal about what you re doing and your environment when you feel the urge toeat. This might help identify -- and stop -- boredom eating patterns. 10. Avoid the urge to eat in front of a screen Eating in front of a screen while you re bored can influence you to overeat when you aren t even hungry. Many people turn to screen-based activities like watching TV or scrolling on their phone when they re feeling bored. Some studies have found that people tend to eat more than they otherwise would when they re distracted or in front of a screen, such as a TV or computer (35Trusted Source, 36Trusted Source, 37TrustedSource). Break associations you might have between eating and screen time by making a point of eating meals at a table -- not in front of the TV -- and putting your phone away while you re dining. Consider replacing mindless eating during screen time with another activity, such as knitting, doodling, or playing with a toy or piece of jewelry, to keep your hands busy while you watch TV. 11. Change your scenery Sometimes all it takes to get your mind off food when you re feeling bored is a little change of scenery. When you re bored and fighting the urge to snack, standing up and moving to a new location -- even if it s just from one room to another -- may be enough to distract your mind from food until the boredom passes. SUMMARY External factors often trigger urges to eat when you re not physically hungry. Identifying the factors in your environment that trigger boredom eating is gonzalez to breaking those habits. 12-13. Mix things up To be bored means that you re feeling uninterested in your current activity. The feeling often occurs when the day has been monotonous or repetitive. The same goes for boredom eating. You may eat simply as a way to escape the regular routines of the day (38Trusted Source, 39Trusted Source). Adding variety to your day keeps things feeling fresh and exciting, and it might fend off boredom eating. 12. Take a walk When you re feeling bored, taking a walk not only provides a distraction from any urges to snack but also physically removes you from food temptations. Sometimes a quick [id number] walk is all it takes to recenter yourself and forget about the urge to snack out of boredom. If you re not able to take a walk, you might find it helpful to take a few minutes to stretch or dobreathing exercises. 13. Make new habits One of the upsides of being bored is that it can drive you to try new things. Next time you feel bored, take a few minutes to think about how you d really like to be spending that time. Is there a new hobby you d like to try or an old book that you never got around to reading? Try to look at boredom as a space for meaningful stimulation in your day. 13 Ways to Stop Eating When You're Bored (SkyPicker.com) Creating a Mindful Eating Environment: 10 Mindless Eating Solutions If you're looking for easier ways to make healthy changes to your diet and lifestyle, consider these simple mindless eating solutions for staying on-track with nutrition: Serve Salad and Vegetables First. Before bringing out your main dish, serve salad and vegetables first to ensure you're eating enough of this important food group. This strategy will also help you eat less of the rest of your dish which is likely higher in calories, etc. Serve Your Main [facility] on the Stove or Counter. Studies show that we're likely to eat less if our food is placed on the stove or counter rather than right in front of us. Eat on Smaller Plates. Similar to the strategy mentioned above, studies show that you're likely to consume less food if you're eating from a smaller plate. This is likely due to the increase of smaller portion sizes. Turn off Your Television. Watching television as you eat can be highly distracting, and it affects your ability to eat mindfully. For example: you're less likely to notice when you're full, so you might consume excess calories. Keep Mostly Water On-hand. Calories from drinks can add up quickly, especially in fruit juices, alcohol and soft drinks. By minimizing the amounts of those drinks on-hand, you're more likely to consume water when you're thirsty - and water has amazing health benefits! Keep Your Kitchen Organized. An organized refrigerator, counter and cabinet space makes you more likely to find and choose the foods which are healthiest for you. On the contrary, a messy kitchen space may make you more apt to grab the first item you see. Pre-cut Your Fruits and Vegetables. Let's admit it: We're more likely to put off eating produce if we have to go through the burden of cutting it first. Pre-cut fruits and vegetables will eliminate this extra step. Have at Least Six Single Servings of Lean Protein On-hand. This includes lean meats such as turkey and chicken, yogurt, eggs, nuts, beans and legumes. By having plenty of lean protein on-hand, you can better manage your appetite and hunger levels. Keep All Snack Foods in One Inconvenient Cupboard. You're less likely to reach for unhealthy snack foods if they're not all gazing up at you from plain sight! Keep Only a Fruit Bowl on Your Counter. This way, if you're one to grab foods based off of their availability, you'll reach for healthier fruits rather than less healthy snack foods. https://www.obesityaction.org/community/news/community-news/ypdjot-s-myczsou-eat ing-environment/ [facility] History of Present illness Narrative* Marleni Almonte MD - 01/28/2024 9:50 AM EDT Images from the original note were not included. Some documentation from previous visit of 10/29/2023 was copied and pasted, documentation has been reviewed and edited as necessary for today's visit. Patient Summary: Jennifer is a 43 year old Female who presents for follow-up evaluation of obesity/weight management to treat and prevent related co- morbidities. In our previous visits we have discussed lifestyle intervention including a nutrition recommendations and physical activity optimization. Her last office visit was 3 months ago. Assessment/plan from last visit: -Reviewed tracking food and weighing food - cut out carbs for breakfast- add in extra shake later in day - discussed more protein then carbs for dinner - will try Ibuprofen 600 q6 x 10 days for aub if fails will do trial of estrogen - Sleep hygiene and stress levels impact on weight - has met requirement to stay on phentermine, topiramate off label use- no SE and overall doing well. - weight set point reviewed - refills given Interval History PT specifies the following items as new or significant updates since the last appointment: - feeling good, more energy - not snacking but staying active - walking but can't get in routine of resistance training but does enjoy it - eating same things but does want new ideas - had stomach bug recently- feeling better - really active outside over the summer - happy with progress, wants to keep losing STARTING WEIGHT WITH first dose phentermine 209lbs(05/22/2022) went to 190lbs Then restarted 10/18 195lbs Date: Wt: 01/28/2024 172 lb 10/29/2023 175lb 08/13/2023 178lb 05/16/2023 177 lb (80.3 kg) 02/20/2023 184 lb (83.5 kg) Weight loss since last vist: 3lbs Anti-obesity medications: Phentermine. Benefit:suppression appetite Adverse effects: none Anti-obesity medications: Topiramate. Benefit:?? Unsure if she can notice Adverse effects: none Weight promoting medications: Other celexa Previous Diet (initial appointment): Dietary changes: B-protein shake or Quest Bar or yogurt and cottage cheese L- yogurt and cottage and berries, 2 eggs, veggies, cheese or protein D- Tries not to eat late- PROTEIN first veggies and GF pasta (measures) if she gets to it S- light and fit popcorn, Fluids - Eating 3 meals a day, including breakfast Increasing water intake Controlling portions Identify hunger and satiety cues Increasing protein Reducing carbohydrates Current Barriers: poor sleep hygiene and inadequate sleep duration poor sleep hygiene and inadequate sleep duration Exercise: elipitical, walking 3 x week , Stress: stable Sleep: not great- goes to bed late CrCl cannot be calculated (Patient's most recent lab result is older than the maximum 180 days allowed.). 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 90 tablet 0 citalopram (CELEXA) 20 mg tablet Take 1 tablet by mouth once daily. 90 tablet 1 levothyroxine (SYNTHROID) 75 mcg tablet Take 1 tablet by mouth daily before breakfast. 90 tablet 1 fexofenadine (LINDSAY) 60 mg tablet Take by mouth. Multivitamin capsule Take 1 capsule by mouth once daily. cyanocobalamin (VITAMIN B-12) 1,000 mcg tab Take 1 tablet by mouth once daily. Ferrous Sulfate (SLOW FE) 142 mg (45 mg iron) TbER Take 1 tablet by mouth every other day. 15 tablet 3 No current facility-administered medications for this visit. 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 Latest Ref Rng & Units 09/13/2022 CMP Sodium 136 - 144 mmol/L 135 Potassium 3.7 - 5.1 mmol/L 3.9 Chloride 97 - 105 mmol/L 102 CO2 22 - 30 mmol/L 25 Glucose 74 - 99 mg/dL 96 BUN 7 - 21 mg/dL 15 Creatinine 0.58 - 0.96 mg/dL 0.62 EGFR >=60 mL/min/1.73m 113 Protein, Total 6.3 - 8.0 g/dL 7.9 Albumin 3.9 - 4.9 g/dL 4.6 Calcium 8.5 - 10.2 mg/dL 8.8 Bilirubin, Total 0.2 - 1.3 mg/dL 0.5 AST 13 - 35 U/L 14 ALT 7 - 38 U/L 10 Alkaline Phosphatase 34 - 123 U/L 54 Cholesterol, Total (mg/dL) Date Value 09/13/2022 167 06/21/2021 168 HDL Cholesterol (mg/dL) Date Value 09/13/2022 58 06/21/2021 47 LDL Cholesterol (mg/dL) Date Value 09/13/2022 94 06/21/2021 102 Triglyceride (mg/dL) Date Value 09/13/2022 76 06/21/2021 94 Latest Ref Rng & Units 02/20/2023 CBC WBC 3.70 - 11.00 k/uL 5.20 RBC 3.90 - 5.20 m/uL 4.34 Hemoglobin 11.5 - 15.5 g/dL 13.1 Hematocrit 36.0 - 46.0 % 38.8 MCV 80.0 - 100.0 fL 89.4 MCH 26.0 - 34.0 pg 30.2 MCHC 30.5 - 36.0 g/dL 33.8 RDW-CV 11.5 - 15.0 % 13.0 Platelet Count 150 - 400 k/uL 336 MPV 9.0 - 12.7 fL 8.3 Vitamin D 25 Hydroxy Date Value Ref Range Status 02/20/2023 45.0 31.0 - 80.0 ng/mL Final 05/15/2021 33.1 31.0 - 80.0 ng/mL Final Comment: Classification of 25 OH Vitamin D status: Insufficiency/Moderate Deficiency: < or = 30 ng/mL Sufficiency/Optimal Levels: 31 to 80 ng/mL Toxicity: > 100 ng/mL Test performed by chemiluminescent immunoassay. TSH Date Value 02/20/2023 1.420 mIU/L 09/13/2022 2.600 mIU/L 05/15/2021 2.830 uU/mL ) Hemoglobin A1C (%) Date Value 02/20/2023 5.1 Insulin Date Value Ref Range Status 02/20/2023 2.8 (L) 3.0 - 25.0 mU/L Final Assessment/Plan: Jennifer Manning is a 43 year old yo with Class I obesity who presented today for follow up for supervised weight loss to treat and prevent related co-morbidities. Encounter Diagnosis ICD-10-CM 1. Malaise and fatigue R53.81 COMPREHENSIVE METABOLIC PANEL R53.83 COMPLETE BLOOD COUNT THYROID STIMULATING HORMONE 2. Hypothyroidism, unspecified type E03.9 THYROID STIMULATING HORMONE 3. Polyarthropathy, inflammatory (HCC) M06.4 4. Other migraine without status migrainosus, not intractable G43.809 topiramate (TOPAMAX) 50 mg tablet 5. Poor sleep Z72.820 topiramate (TOPAMAX) 50 mg tablet 6. Iron deficiency E61.1 COMPLETE BLOOD COUNT 7. Class 1 obesity without serious comorbidity with body mass index (BMI) of 31.0 to 31.9 in adult,unspecified obesity type E66.9 COMPREHENSIVE METABOLIC PANEL Z68.31 LIPID PANEL BASIC 8. Encounter for screening for diabetes mellitus Z13.1 COMPREHENSIVE METABOLIC PANEL INSULIN ASSAY BLOOD 9. Screening cholesterol level Z13.220 LIPID PANEL BASIC 10. Class 1 obesity with body mass index (BMI) of 34.0 to 34.9 in adult, unspecified obesity type, unspecified whether serious comorbidity present E66.9 Phentermine HCl (ADIPEX-P) 37.5 mg capsule Z68.34 - repeat labs today- ordered patient advised to do fasting - advised on tracking food daily - continue whole foods, low carb, high protein - continue phentermine and topiramate - >5% TBW loss in initial 3 months of phentermine use qualifying for long-term off label treatment of obesity - discussed adding in resistance training and importance of this and impact it will have on metabolism. - An overall goal of 150-200 minutes per week of exercise has been effective in weight loss and maintenance. Prescription instructions reviewed with patient as applicable. Potential red flag symptoms discussed with the patient. Reviewed appropriate action plan to take ifred flag symptoms occur. Patient agreeable to treatment plan. Follow up in 3 months or sooner I spent a total of 35 minutes on the date of the service which included preparing to see the patient, [id number] patient care, completing clinical documentation, obtaining and/or reviewing separately obtained history, performing a medically appropriate examination, counseling and educating the pat ient/family/caregiver, and ordering medications, tests, or procedures. Marleni Avendaño MD, FACOG, DABOM documented in this encounterS[facility]24 NoteHNO ID: [id number] Author: MARLENI ALMONTE MD Service: ? Author Type: Physician Type: Progress Notes Filed: 01/28/2024 10:42 Note Text: Some documentation from previous visit of 10/29/2023 was copied and pasted, documentation has been reviewed and edited as necessary for today's visit. Patient Summary: Jennifer is a 43 year old Female who presents for follow-up evaluation of obesity/weight management to treat and prevent related co-morbidities. In our previous visits we have discussed lifestyle intervention including a nutrition recommendations and physical activity optimization. Her last office visit was 3 months ago. Assessment/plan from last visit: -Reviewed tracking food and weighing food - cut out carbs for breakfast- add in extra shake later in day - discussed more protein then carbs for dinner - will try Ibuprofen 600 q6 x 10 days for aub if fails will do trial of estrogen - Sleep hygiene and stress levels impact on weight - has met requirement to stay on phentermine, topiramate off label use- no SE and overall doing well. - weight set point reviewed - refills given Interval History PT specifies the following items as new or significant updates since the last appointment: - feeling good, more energy - not snacking but staying active - walking but can't get in routine of resistance training but does enjoy it - eating same things but does want new ideas - had stomach bug recently- feeling better - really active outside over the summer - happy with progress, wants to keep losing STARTING WEIGHT WITH first dose phentermine 209lbs(05/22/2022) went to 190lbs Then restarted 10/18 195lbs Date: Wt: 01/28/2024 172 lb 10/29/2023 175lb 08/13/2023 178lb 05/16/2023 177 lb (80.3 kg) 02/20/2023 184 lb (83.5 kg) Weight loss since last vist: 3lbs Anti-obesity medications: Phentermine. Benefit:suppression appetite Adverse effects: none Anti-obesity medications: Topiramate. Benefit:?? Unsure if she can notice Adverse effects: none Weight promoting medications: Other celexa Previous Diet (initial appointment): Dietary changes: B-protein shake or Quest Bar or yogurt and cottage cheese L- yogurt and cottage and berries, 2 eggs, veggies, cheese or protein D- Tries not to eat late- PROTEIN first veggies and GF pasta (measures) if she gets to it S- light and fit popcorn, Fluids - Eating 3 meals a day, including breakfast Increasing water intake Controlling portions Identify hunger and satiety cues Increasing protein Reducing carbohydrates Current Barriers: poor sleep hygiene and inadequate sleep duration poor sleep hygiene and inadequate sleep duration Exercise: elipitical, walking 3 x week , Stress: stable Sleep: not great- goes to bed late CrCl cannot be calculated (Patient's most recent lab result is older than the maximum 180 days allowed.). 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 1 Each 0 topiramate (TOPAMAX) 50 mg tablet Take 1 tablet by mouth once daily. 90 tablet 0 citalopram (CELEXA) 20 mg tablet Take 1 tablet by mouth once daily. 90 tablet 1 levothyroxine (SYNTHROID) 75 mcg tablet Take 1 tablet by mouth daily before breakfast. 90 tablet 1 fexofenadine (LINDSAY) 60 mg tablet Take by mouth. Multivitamin capsule Take 1 capsule by mouth once daily. cyanocobalamin (VITAMIN B-12) 1,000 mcg tab Take 1 tablet by mouth once daily. Ferrous Sulfate (SLOW FE) 142 mg (45 mg iron) TbER Take 1 tablet by mouth every other day. 15 tablet 3 No current facility-administered medications for this visit. 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 Physical Exam Waist circumference: 37.25--> 36.75--36.75 -->not done this visit Results: recent labs reviewed with the patient. Latest Ref Rng AND Units 09/13/2022 CMP Sodium 136 - 144 mmol/L 135 Potassium 3.7 - 5.1 mmol/L 3.9 Chloride 97 - 105 mmol/L 102 CO2 22 - 30 mmol/L 25 Glucose 74 - 99 mg/dL 96 BUN 7 - 21 mg/dL 15 Creatinine 0.58 - 0.96 mg/dL 0.62 EGFR >=60 mL/min/1.73m? 113 Protein, Total 6.3 - 8.0 g/dL 7.9 Albumin 3.9 - 4.9 g/dL 4.6 Calcium 8.5 - 10.2 mg/dL 8.8 Bilirubin, Total 0.2 - 1.3 mg/dL 0.5 AST 13 - 35 U/L 14 ALT 7 - 38 U/L 10 Alkaline Phosphatase 34 - 123 U/L 54 Cholesterol (more content not included)...[facility]04-30-2024 Instructions* Patient Instructions* Delma Castelan MA - 11/26/2023 8:57 AM EDT POST IUD INSTRUCTIONS You may have irregular bleeding during the first 3 months of use. You may have mild-severe cramping for the next 48 hours. You may use over the counter medication (Motrin, Tylenol) as needed. Your IUD must be removed or replaced based on the following table: IUD Type Removed or replaced within: Magy 3 years Kyleena 5 years Mirena 8 years Liletta 8 years Paragard 10 years Call the office for signs/symptoms of infection such as severe cramping, fever, or unusual bleeding. Check for string placement as instructed by your doctor. If you have any additional questions, please contact the office. documented in this encounterS[facility]04-30-[facility]24 History of Present illness Narrative* Marleni Almonte MD - 11/26/2023 8:54 AM EDT Jennifer presents for removal of IUD due to partial expulsion. UNIVERSAL PROTOCOL / SAFETY CHECKLIST Procedure to be Performed: Iud removal and reinsertion Mirena Sign In: A Moment of CARE was completed. Personnel directly involved with the procedure wore the appropriate PPE (Personal Protective Equipment). Patient/Surrogate Stated/Verified: PATIENT VERIFIED(optional for EMERGENT procedures): Patient name, Date of , Relevant allergies, and The intended procedure Time Out Communication: Intended patient and procedure match the source documents. Consent documented and matches the intended procedure. Sign Out: SIGN OUT (optional for EMERGENT procedures): No specimen collected. PROCEDURE: Speculum placed in vagina, IUD string visualized and grasped with ring forceps. ASSESSMENT/PLAN: IUD removed without difficulty, intact, and patient tolerated procedure well. Contraception plans: Mirena IUD and tubal ligation Marleni Avendaño MD Jennifer presents today for IUD insertion for menstrual dysfunction. Patient's last menstrual period was 04/25/2021. GC/chlamydia: Not done: no risk factors and/or patient declines screening test: negative Side effects including irregular bleeding were discussed with the patient. The patient understands that it should be removed in 8 years or sooner if the patient desires a . IUD source: office provided IUD lot #: [id number] Exp date: 12/2025 UNIVERSAL PROTOCOL / SAFETY CHECKLIST Procedure to be Performed: IUD removal and IUD reinsertion MIRENA Sign In: A Moment of CARE was completed. Personnel directly involved with the procedure wore the appropriate PPE (Personal Protective Equipment). Patient/Surrogate Stated/Verified: PATIENT VERIFIED(optional for EMERGENT procedures): Patient name, Date of , Relevant allergies, and The intended procedure Time Out Communication: Intended patient and procedure match the source documents. Consent documented and matches the intended procedure. Sign Out: SIGN OUT (optional for EMERGENT procedures): No specimen collected. The cervix was prepped with betadine. The uterus sounded to 7 cm and the uterus is Retroverted.. Using sterile technique, the Mirena IUD was inserted without difficulty and the string was cut to 2.5cm from the external os of the cervix. Patient tolerated procedure well. PLAN: Patient was advised to observe for signs and symptoms of infection including but not limited to fever, malodorous vaginal discharge and/or pain. The patient was told to check the string monthlyfor accurate placement. Bleeding expectations were reviewed. Follow up for next annual exam or sooner as needed. Marleni Avendaño MD documented in this encounterCleveland [id number] Telephone encounter Note * Telephone Encounter - Giselle House MA - 11/22/2023 8:39 AM EDT Pt active on mychart- message sent Giselle House MA [facility]04-[facility] Miscellaneous Notes* Telephone Encounter - Giselle House MA - 11/22/2023 8:39 AM EDT Pt active on mychart- message sent Giselle House MA * Telephone Encounter - Ruth Witt APRN.CNP - 11/22/2023 8:34 AM EDT Please let patient know her mammogram is negative. Patient should continue with annual screenings. documented in this encounterS[facility]04-26-2024 Telephone encounter Note * Telephone Encounter - Ruth Witt APRN.CNP - 11/22/2023 8:34 AM EDT Please let patient know her mammogram is negative. Patient should continue with annual screenings. [facility] Work Phone: [phone] 552-801904-26-2024 Note* Letter - Coordinator, Mammography - 11/22/2023 7:56 AM EDT November 25, 2023 PID: [id number] Jennifer Manning [address] [place] [address] [address] [place] [id number] Dear Ms. Manning, We are pleased to inform you that the results of your recent breast imaging exam on 11/21/2023 are normal. Early detection of cancer is very important. We also understand recommendations regarding breast cancer screening are controversial. Please discuss with your primary care provider which strategy is best for you and whether a mammogram is right for you. Your imaging studies and report will be kept [facility] file at [facility] as part of your permanent medical record and are available for your continuing care. Thank you for allowing us to help in meeting your health care needs. Sincerely, Dr. Ramos Interpreting Radiologist [facility] (Normal over 40) [facility]04-26-[facility] Miscellaneous Notes* Letter - Coordinator, Mammography - 11/22/2023 7:56 AM EDT November 25, 2023 PID: [id number] Jennifer TaylorRadhika Manning [address] [place] [id number] Dear Ms. Manning, We are pleased to inform you that the results of your recent breast imaging exam on 11/21/2023 are normal. Early detection of cancer is very important. We also understand recommendations regarding breast cancer screening are controversial. Please discuss with your primary care provider which strategy is best for you and whether a mammogram is right for you. Your imaging studies and report will be [facility] as part of your permanent medical record and are available for your continuing care. Thank you for allowing us to help in meeting your health care needs. Sincerely, Dr. Ramos Interpreting Radiologist [facility] (Normal over 40) documented in this encounterScci Hospital [facility]04-25-2024 Miscellaneous Notes* Telephone Encounter - Marleni Almonte MD - 11/21/2023 1:18 PM EDT ordered * Telephone Encounter - Suzanna Ackerman LPN - 11/21/2023 11:18 AM EDT Patient has appointment for IUD removal and reinsertion d/t malposition of current IUD. Please approve orders. Order will need linked to upcoming appointment documented in this encounterS[facility]04-25-2024 Telephone encounter Note * Telephone Encounter - Marleni Almonte MD - 11/21/2023 1:18 PM EDT ordered [facility]-25-[facility] Telephone encounter Note* Telephone Encounter - Suzanna Ackerman LPN - 11/21/2023 11:18 AM EDT Patient has appointment for IUD removal and reinsertion d/t malposition of current IUD. Please approve orders. Order will need linked to upcoming appointment [facility]04[facility] History of Present illness Narrative* Elidia Bowles Mammo Tech - 11/21/2023 9:30 AM EDT Radiology Service Progress Note PATIENT NAME: Jennifer Manning DATE OF SERVICE: November 21, 2023 TIME: 9:20 AM PATIENT IDENTITY VERIFICATION COMPLETED USING TWO (2) IDENTIFIERS: Name and Date of confirmedby patient verbally. FALL SCREENING: Has the patient had 2 falls in the last year or 1 fall with injury or currently using an Ambulatory Assistive Device (Walker, Cane, Wheelchair, Crutches, etc.)? No PATIENT GENDER DATA: Female. status: : No status: NO. PATIENT RELEVANT IMPLANT DATA REVIEWED: Not Applicable PATIENT PRESENTS WITH AN IMPLANTABLE OR ATTACHED MANAGEMENT INTERNSHIP: No RADIOLOGY DEPARTMENT: Mammography PERIPHERAL IV DATA: Not applicable SIGNED BY: Trip Gonzalez November 21, 2023 9:20 AM documented in this encounterS[facility]04-02-2024 Instructions* Patient Instructions* Marleni Almonte MD - 10/29/2023 12:10 PM EDT Images from the original note were not included. MENOPAUSE AND WEIGHT GAIN Menopause and weight -- In females, weight gain and increased central fat distribution often occur in the early postmenopausal years [33]. The magnitude of the increase depends upon the method of measurement [30]. The increase in fat mass with preferential accumulation of visceral fat is felt to bedue to reductions in energy expenditure in menopause [34]. The increased levels of follicle-stimulating hormone (FSH) that occur with menopause may be involved in this weight gain independent of the fall in estrogen [35]. (See Clinical manifestations and diagnosis of menopause, section on 'Long-term consequences of estrogen deficiency'.) In the Study of Women's Health Across the Nation (SWAN) including almost 550 females aged 42 to 52 at baseline, weight, waist circumference, and fat mass (measured with bioelectrical impedance) were followed for six years [36]. Over the study period, there was an average 2.9 kg weight gain, 3.4 kg increase in fat mass, and a 5.7 cm increase in waist circumference. Among study subjects, the rate of waist circumference increase slowed one year after the final menstrual period, whereas fat mass continued to increase without change. However, estrogen therapy does not prevent weight gain in postmenopausal females, although it may minimize fat redistribution [37,38]. In a three-year trial including over 800 participants from the Women's Health Initiative (WHI), those who received estrogen and progesterone therapy lost less lean muscle mass (-0.04 versus -0.44 kg) and had less change in fat distribution compared with those receiving placebo [37]. However, the effects were small and the clinical benefits unclear. In a metanalysis including 28 randomized trials and over 28,000 participants, the use of post-menopausal estrogenalone or combination estrogen and progesterone was not associated with a change in body weight [39]. (See Menopausal hormone therapy: Benefits and risks, section on 'Weight'.) CONDITIONS ASSOCIATED WITH WEIGHT GAIN Hypothyroidism -- Patients with overt clinical hypothyroidism often gain weight, with some of the weight due to increased adiposity. The weight gain, however, is usually modest. Increasing serum thyroid-stimulating hormone (TSH) concentrations within the normal range have also been associated with a modest increase in body weight in adults [76,77], but treatment of subclinical hypothyroidism doesnot appear to be associated with weight loss. Observational data suggest that obesity may predispose to hypothyroidism, raising questions about causality [78]. Hypothyroidism and weight is reviewed in detail elsewhere. (See Subclinical hypothyroidism in non adults, section on 'Potential consequences' and Clinical manifestations of hypothyroidism, section on 'Clinical manifestations'.) [place]'s syndrome -- A common feature in patients with Erickson s syndrome is progressive central adiposity involving the trunk, abdomen, mesentery, and mediastinum. There is usually accumulation of fat tissue in the face and neck, with enlarged dorso- and supraclavicular fat pads. The extremities are usually spared and often exhibit muscular wasting. The excess of glucocorticoids in [place] Sch[place]ack s syndrome (iatrogenic or endogenous) induces 79-etgl-oxuzzzdxhhqain dehydrogenase type 1 in visceral fat, enhancing its lipogenic capacity [79]. (See Epidemiology and clinical manifestations of [place] Sch[place] syndrome.) Hypothalamic obesity -- Hypothalamic obesity is a rare syndrome in humans that can be reproduced inanimals by injury to the ventromedial or paraventricular region of the hypothalamus or the amygdala[80]. These regions of the brain are responsible for integrating metabolic information regarding nutrient stores with afferent sensory information about food availability. When the ventromedial hypothalamus is damaged, hyperphagia develops, energy expenditure decreases [81], and obesity follows. This syndrome can be caused by a tumor (most commonly craniopharyngioma) [82] (see Craniopharyngioma), trauma, irradiation, surgery in the posterior fossa, or increased intracranial pressure [83]. In addition to weight gain, additional symptoms may include headache, vomiting, and/or visual changes; amenorrhea, erectile dysfunction, arginine vasopressin deficiency (previously called central diabetes insipidus), hypothyroidism, and/or adrenal insufficiency; seizures, somnolence, coma, and/or disordered temperature regulation [84]. In a report of 42 adults with tumors in the hypothalamic region (treated with surgery and/or radiotherapy), 52 percent of patients had obesity after a median of five years of follow-up (versus 24 percent at baseline) [85]. In a multivariate analysis, no correlation was found between tumor location or size and subsequent weight gain. Bariatric surgery has been found to produce moderate weight loss in patients with hypothalamic obesity, although the amount of weight lost may be less than what is seen in patients with typical obesity [86,87]. Growth hormone deficiency -- Growth hormone deficiency in adults is associated with an increase in abdominal and visceral fat. (See Growth hormone deficiency in adults.) OTHER POSSIBLE CONTRIBUTORS TO OBESITY The gut microbiome -- The composition of the gut cruz, or the gut microbiome, may be a contributorto obesity. Since the observation that germ-free mice weigh less than mice with a normal gut microbiome [88], there have been a large number of studies demonstrating an association between the proportion of Bacteroidetes and Firmicutes bacteria in the gut and the development of obesity. It is less c lear, however, that the relationship is causal [89]. The role of the gut microbiome in weight and obesity is reviewed in detail elsewhere. (See Obesity: Genetic contribution and pathophysiology, section on 'Gut microbiome'.) Exposure to endocrine-disrupting chemicals -- Endocrine-disrupting chemicals are compounds that areused in the production of a wide range of commercial products. They have been found in environmental water samples and the food supply and can accumulate in human tissues. A growing number of studieshave linked exposure to these compounds to both childhood and adult obesity [90]. Based on observational studies, bisphenol A and perfluorinated chemicals may be the most strongly associated [91]. Why People Diet, Lose Weight and Gain It All Back Plus 4 ways to break the cycle + maintain your weight loss You -- and your diet -- have been firing on all cylinders. The weight is melting off, and you re feeling your best. But then there is that seemingly inevitable backslide, with pound after pound creeping back on despite your best efforts. It s the ultimate Catch-22. But before you beat yourself up, waist cutter and obesity specialist Isaias Hernandez MD, has some welcome news: It s most likely not your fault. Your body is fighting to keep your weight as it was before the dieting, he says. But take heart -- it s possible to win the bautista. What weight set point has to do with it Experts think as many as 80 to 95% of dieters gain back the weight they ve worked so hard to lose. Why? (WHY?!?) Dr. Hernandez says the culprit is your weight set point : the weight your body is programmed to be.Your weight set point is a combination of several factors, including your: Genetics. Hormones. Behavior. Environment. Weight set point and metabolism play for the same team: Your metabolism so energy at a rate thatwill maintain your weight set point, even if that point is heavier than is healthy. Most of the time, weight gain is gradual, and that can raise your set point gradually, too, notes Dr. Hernandez. But certain lifestyle changes can lower it. The perils of yo-yo dieting Beware of the quick-fix, Dr. Hernandez warns. A fad diet won t change your set point. It s just restricting calories, he says. Your body is very efficient. You can successfully lose weight for a while, but at some point, your body simply adjusts to need fewer calories to function. Which means weight loss will eventually stop, unless you start eating even less than your diet calls for. (You can see where this is going.) Your body is also a survivor. As soon as calories drop, it starts doing everything in its power to prevent starvation, including: Ups the hunger hormone: Levels of the satiety hormone leptin (which controls how full you feel) decrease. Meanwhile, levels of the hunger hormone ghrelin increase. You feel hungrier, even after eating a normal meal. Makes you think, Oooh that looks good : Eating fewer calories alters how you think about and perceive food. Research shows dieters become hyper-focused on food and that it even smells and tastes better to them. These effects stick around for the long-term. Remember the television show The Biggest Loser? Contestants still felt the effects of their calorie deprivation six years later, making it harder to keepthe weight off. Research tells us that yo-yo dieting can negatively affect your metabolism, Dr. Hernandez says. It doesn t matter the diet: low-carb, low-fat, ketogenic, whatever. We see rebound weight gain almost every time. How to lose weight without gaining it back To maintain weight loss for good, Dr. Hernandez advises focusing on these four areas: Diet. How can you create a healthy, long-term, tdgvs-aszr-sj diet? Learn what s healthy -- and what s not. (A county auditor or dietitian can help.) Practice portion control, even when eating healthy foods. Avoid empty calories, but treat yourself once in a while. Don t diet. Instead, focus on forming healthy habits for life. Exercise. Be an equal opportunity manager community: Do both aerobic exercise (three to five times a week) and resistance training (two to three times nonconsecutively each week). Shoot for at least 25 to 35minutes on most days. Exercise works best for staving off weight gain (not jumpstarting weight loss), so recognize that binging on exercise can be just as bad as binging on food. Exercise can make people super hungry, while it makes others tired and inactive, which can negate the activity they did, Dr. Hernandez explains. But it s also important to remember the cardiovascular benefits of exercise, independent of weight loss. Exercise is always good and important, he says. Stress. Stress not only causes some people to eat more, but it also raises levels of the stress hormone cortisol. If you have more cortisol, you end up with higher insulin and lower blood sugar levels, Dr. Hernandez says. (Cue the cravings.) To cope, put down the fork and try meditating or talking to a trusted friend. Sleep. Not getting enough sleep raises cortisol levels, too. It also affects decision-making (read:your ability to stick to healthy habits). Seven to nine hours every night is the magic number you need to help you manage stress. It also helps your body work with you -- and not against you -- when it comes to weight loss. https://health.[facility].org/rbq-bcfucb-yqqr-drfe-ifadgo-exl-nnac-pz-glp-b ack/ Why People Diet, Lose Weight and Gain It All Back - [facility] Why Is Protein So Important for Weight loss? consuming more protein not only reduces body weight but enhances body composition by decreasing fatmass while preserving fat-free mass During weight loss phase protein consumption (with normal kidney function) should be 1-1.6g proteinper Kilogram of body weight (1kg=2.2lbs) On average Women need to Aim for a minimum 90g protein per day Consuming higher protein can also prevent weight regain after weight loss Protein consumption increases hormones responsible for satiety (feeling full)- these include Gut hormones like Glucagon-like peptide-1 (GLP-1), Cholecystokinin (CCK), Peptide Tyrosine-Tyrosine (PYY) and decreasing the Gut hormone responsible for causing hunger Ghrelin Protein has an increased thermogenesis effect of food- which means it take more calories to break down protein when consumed compared to carbohydrates or fats Protein also prevents a losing lean mass during weight loss (lose more fat and preserve fat free mass) which helps to increase resting energy expenditure (resting metabolic rate) Every pound of muscle so ~ 6 kcal per pound/day vs fat so ~ 2kcal per pound/day Carbohydrates - Why do You Crave Them? Eating too many refined carbohyrdates (sugar beverages, pastries, bread, pizza) which raises your blood glucose levels and therefore releasing insulin which in turn causes increase in hunger Carbohydrates suppress Ghrelin quickly but does not maintain the suppression for very long therefore hunger returns more quickly Consuming carbohydrates leads to a release of Dopamine feel good hormone in our brain So how do you Curb these cravings? Eating Whole Foods with more fiber - High fiber carbs are absorbed and digested slowly so it does not impact blood sugar levels as much and will help in making you feel carroll for longer; fiber also is healthy for your gut bacteria and can help with constipation. Remember- carbohydrates are not the enemy but know what a proper serving size is, choose nutritiouscarbohydrates and space them out between meals. Always- eat your protein first followed by your non starchy vegetables followed by your carbohydrates- it will help your body with your glucose and insulin regulation Processed Foods vs Whole Foods- Impact on Weight: People who eat Ultra Processed food tend to consume about 500 calories more per day Ultra Processed foods are considered Calorie Dense so when a person feels full they have typically already over eaten and consumed more calories Whole Foods (unprocessed foods) tend to be more more filling and more Nutrient Dense Unprocessed foods can be more expensive and not realistic for everyone however when you have the choice to consume unprocessed vs Ultra processed foods always pick unprocessed. Why can't people stop eating Ultra Processed foods? They are economical and optimized for taste by [employer] - they are designed to make you want to keep eating them- they feed common cravings and bypass the mechanisms that tell your brain you are full Benefits of eating Whole Foods and cutting out Ultra Processed Foods Increased concentration and focus (decreased brain fog), improved mood, better sleep, Decrease in fatigue, improvement in gut health, decreased inflammation, Likely WEIGHT LOSS Educational Podcasts: The Dr. Navarro Show- Real Conversations about Health and Weight * April 15, 2023 what you need to know about Carbohydrates and Weight *March 25, 2023 Protein why we need it and how to eat more Protein *March 04, 2023 Menopause and Weight Gain- All the Details with Dr. Tomasa Mcdermott *February 11, 2023 The Science Behind Ultra Processed Food and Weight Gain *November 26, 2022 Effects of sleep and Stress of Weight and Health with Dr. Debbie Porter-Withers, DO * November 19, 2022 Recognizing and Resolving Emotional Eating with Dr. Dhaliwal Obesity: A Disease *November 19, 2022 Episode 80 Clinical conversations: The Role of Physical Activity in Weight Management * March 01, 2023 Episode 84 Clinical Conversations: NAFLD, The [place] Disease of Metabolic Syndrome *February 282019 Episode 20 Article Reviews: The Role Ultra Processed Diets Play in Weight Gain *February 10, 2020 Episode 21 Clinical Conversations: Breaking Weight Plateaus Foods that fight inflammation April 15, 2020 Doctors are learning that one of the best ways to reduce inflammation lies not in the medicine cabinet, but in the refrigerator. By following an anti- inflammatory diet you can fight off inflammation for good. What does an anti-inflammatory diet do? Your immune system becomes activated when your body recognizes anything that is foreign--such as an invading microbe, plant pollen, or chemical. This often triggers a process called inflammation. Intermittent bouts of inflammation directed at truly threatening invaders protect your health. However, sometimes inflammation persists, day in and day out, even when you are not threatened by aforeign invader. That's when inflammation can become your enemy. Many major diseases that plague us--including cancer, heart disease, diabetes, arthritis, depression, and Alzheimer's--have been linked to chronic inflammation. One of the most powerful tools to combat inflammation comes not from the pharmacy, but from the grocery store. Many experimental studies have shown that components of foods or beverages may have anti-inflammatory effects, says Dr. Stephan Payne, professor of nutrition and epidemiology in the Department of Nutrition at the [employer]. Choose the right anti-inflammatory foods, and you may be able to reduce your risk of illness. Consistently pick the wrong ones, and you could accelerate the inflammatory disease process. Get simple tips to fight inflammation and stay healthy -- from [employer] experts. Protect yourself from the damage of chronic inflammation Click here to learn more Foods that cause inflammation Try to avoid or limit these foods as much as possible: refined carbohydrates, such as white bread and pastries [place] fries and other fried foods soda and other sugar-sweetened beverages red meat (burgers, steaks) and processed meat (hot dogs, sausage) margarine, shortening, and lard The health risks of inflammatory foods Not surprisingly, the same foods on an inflammation diet are generally considered bad for our health, including sodas and refined carbohydrates, as well as red meat and processed meats. Some of the foods that have been associated with an increased risk for chronic diseases such as type 2 diabetes and heart disease are also associated with excess inflammation, Dr. Payne says. It's not surprising, since inflammation is an important underlying mechanism for the development of these diseases. Unhealthy foods also contribute to weight gain, which is itself a risk factor for inflammation. 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 Some of the food components or ingredients may have independent effects on inflammation over and above increased caloric intake, Dr. Payne says. Anti-inflammatory foods An anti-inflammatory diet should include these foods: tomatoes olive oil green leafy vegetables, such as spinach, kale, and collards nuts like almonds and walnuts fatty fish like salmon, mackerel, tuna, and sardines fruits such as strawberries, blueberries, cherries, and oranges Benefits of anti-inflammatory foods On the flip side are beverages and foods that reduce inflammation, and with it, chronic disease, says Dr. Payne. He notes in particular fruits and vegetables such as blueberries, apples, and leafy greens that are high in natural antioxidants and polyphenols--protective compounds found in plants. Studies have also associated nuts with reduced markers of inflammation and a lower risk of cardiovascular disease and diabetes. Coffee, which contains polyphenols and other anti-inflammatory compounds, may protect against inflammation, as well. Anti-inflammatory diet To reduce levels of inflammation, aim for an overall healthy diet. If you're looking for an eating plan that closely follows the tenets of anti-inflammatory eating, consider the Mediterranean diet, which is high in fruits, vegetables, nuts, whole grains, fish, and healthy oils. In addition to lowering inflammation, a more natural, less processed diet can have noticeable effects on your physical and emotional health. A healthy diet is beneficial not only for reducing the risk of chronic diseases, but also for improving mood and overall quality of life, Dr. Payne says. Creating a Mindful Eating Environment: 10 Mindless Eating Solutions If you're looking for easier ways to make healthy changes to your diet and lifestyle, consider these simple mindless eating solutions for staying on-track with nutrition: Serve Salad and Vegetables First. Before bringing out your main dish, serve salad and vegetables first to ensure you're eating enough of this important food group. This strategy will also help you eat less of the rest of your dish which is likely higher in calories, etc. Serve Your Main [facility] on the Stove or Counter. Studies show that we're likely to eat less if our food is placed on the stove or counter rather than right in front of us. Eat on Smaller Plates. Similar to the strategy mentioned above, studies show that you're likely to consume less food if you're eating from a smaller plate. This is likely due to the increase of smaller portion sizes. Turn off Your Television. Watching television as you eat can be highly distracting, and it affects your ability to eat mindfully. For example: you're less likely to notice when you're full, so you might consume excess calories. Keep Mostly Water On-hand. Calories from drinks can add up quickly, especially in fruit juices, alcohol and soft drinks. By minimizing the amounts of those drinks on-hand, you're more likely to consume water when you're thirsty - and water has amazing health benefits! Keep Your Kitchen Organized. An organized refrigerator, counter and cabinet space makes you more likely to find and choose the foods which are healthiest for you. On the contrary, a messy kitchen space may make you more apt to grab the first item you see. Pre-cut Your Fruits and Vegetables. Let's admit it: We're more likely to put off eating produce if we have to go through the burden of cutting it first. Pre-cut fruits and vegetables will eliminate this extra step. Have at Least Six Single Servings of Lean Protein On-hand. This includes lean meats such as turkey and chicken, yogurt, eggs, nuts, beans and legumes. By having plenty of lean protein on-hand, you can better manage your appetite and hunger levels. Keep All Snack Foods in One Inconvenient Cupboard. You're less likely to reach for unhealthy snack foods if they're not all gazing up at you from plain sight! Keep Only a Fruit Bowl on Your Counter. This way, if you're one to grab foods based off of their availability, you'll reach for healthier fruits rather than less healthy snack foods. https://www.obesityaction.org/community/news/community-news/cdchmz-u-jffwgbl-eat ing-environment/ [facility] History of Present illness Narrative* Brenda Roy APRN.ARTIFICIAL TEETH INSPECTOR - 10/29/2023 12:00 PM EDT 10/28/2023 Patient presents with: Recheck: Medications SUBJECTIVE: This is a 43 year old that is here today for Above Complaints. Since last office visit has been in good health without ER visits or hospitalizations. HYPOTHYROIDISM: taking synthroid as prescribed without side effects. Anxiety and Depression: taking citalopram as prescribed without side effects. Denies depressive symptoms, SI or HI Crohn's: had colonoscopy last year. Will need repeat in 3 years. Does not follow with gastro for this. Following with ANESTHESIOLOGY MEDICAL DOCTOR for weight management. 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 Phentermine HCl 37.5 mg tablet Take 1 tablet by mouth daily before breakfast for 90 days. topiramate (TOPAMAX) 50 mg tablet Take 1 tablet by mouth once daily. citalopram (CELEXA) 20 mg tablet Take 1 tablet by mouth once daily. fexofenadine (LINDSAY) 60 mg tablet Take by mouth. Multivitamin capsule Take 1 capsule by mouth once daily. Ferrous Sulfate (SLOW FE) 142 mg (45 mg iron) TbER Take 1 tablet by mouth every other day. cyanocobalamin (VITAMIN B-12) 1,000 mcg tab Take 1 tablet by mouth once daily. levonorgestrel (MIRENA) 20 mcg/24 hours (7 yrs) 52 mg IUD 1 Each by INTRAUTERINE route one time only. No current facility-administered medications for this visit. Medications and allergies reviewed by this provider. SOCIAL HISTORY Social History Tobacco Use Smoking status: Never Smokeless tobacco: Never Vaping Use Vaping Use: Never used Substance Use Topics Alcohol use: Yes Comment: 2-3 glasses of wine per week, not while Drug use: No REVIEW OF SYSTEMS GENERAL: No weight loss, malaise or fevers RESPIRATORY: Negative for cough, hemoptysis, wheezing, COPD, dyspnea or shortness of breath CARDIOVASCULAR: Negative for chest pain, leg swelling, hypertension, CHF or palpitations All other reviewed and negative other than HPI. OBJECTIVE: BP 96/74 Pulse 77 Resp 18 Wt 80.6 kg (177 lb 12.8 oz) LMP 04/25/2021 SpO2 98% BMI 28.70kg/m . Vital signs reviewed by this provider. APPEARANCE Well appearing, alert, in no acute distress, well-hydrated, well nourished. EYES conjunctiva and sclera normal. HEART RRR with normal S1 and S2, no murmurs, no gallops, no JVD appreciated LUNG clear to auscultation. No wheezes, rhonchi or rales EXTREMITIES Extremities normal, No deformities, No skin discoloration, and No edema SKIN Skin color, texture, turgor normal, no suspicious rashes or lesions to exposed skin Latest Ref Rng 02/20/2023 TSH 0.270 - 4.200 mIU/L 1.420 Latest Ref Rng 02/20/2023 WBC 3.70 - 11.00 k/uL 5.20 RBC 3.90 - 5.20 m/uL 4.34 Hemoglobin 11.5 - 15.5 g/dL 13.1 Hematocrit 36.0 - 46.0 % 38.8 MCV 80.0 - 100.0 fL 89.4 MCH 26.0 - 34.0 pg 30.2 MCHC 30.5 - 36.0 g/dL 33.8 RDW-CV 11.5 - 15.0 % 13.0 Platelet Count 150 - 400 k/uL 336 MPV 9.0 - 12.7 fL 8.3 (L) Absolute nRBC <0.01 k/uL <0.01 Latest Ref Rng 09/13/2022 Cholesterol, Total <200 mg/dL 167 Triglyceride <150 mg/dL 76 HDL Cholesterol >39 mg/dL 58 Non HDL Cholesterol <130 mg/dL 109 Fasting Time hrs 12 VLDL Cholesterol <30 mg/dL 15 TC:HDL Ratio <5.10 2.88 LDL Cholesterol <100 mg/dL 94 LDL:HDL Ratio <2.54 1.62 Latest Ref Rng 09/13/2022 Protein, Total 6.3 - 8.0 g/dL 7.9 Albumin 3.9 - 4.9 g/dL 4.6 Calcium 8.5 - 10.2 mg/dL 8.8 Bilirubin, Total 0.2 - 1.3 mg/dL 0.5 Alkaline Phosphatase 34 - 123 U/L 54 AST 13 - 35 U/L 14 ALT 7 - 38 U/L 10 Glucose 74 - 99 mg/dL 96 BUN 7 - 21 mg/dL 15 Creatinine 0.58 - 0.96 mg/dL 0.62 Sodium 136 - 144 mmol/L 135 (L) Potassium 3.7 - 5.1 mmol/L 3.9 Chloride 97 - 105 mmol/L 102 CO2 22 - 30 mmol/L 25 Anion Gap 9 - 18 mmol/L 8 (L) eGFR >=60 mL/min/1.73m 113 Legend: (L) Low egend: (L) Low Pneumococcal Vaccine(1 of 2 - PCV) Never done Meningococcal B Vaccine: Consider Based On Risk(1 of 4 - Increased Risk) Never done MMR Vaccine(1 of 2 - Risk 2-dose series) Never done Hepatitis A Vaccine(1 of 2 - Risk 2-dose series) Never done Covid-19 Vaccine() due on 03/29/2023 Depression Assessment due on 07/29/2023 Mammogram Screening due on 09/13/2023 Influenza Vaccine(Season Ended) due on 03/29/2024 Annual PCP Team Chronic Disease Visit due on 10/28/2024 Colorectal Cancer Screening due on 11/08/2025 Pap Testing due on 07/17/2026 HPV Testing due on 07/17/2026 DTaP,Tdap,Td Vaccine(2 - Td or Tdap) due on 06/14/2031 Hepatitis B Vaccine(1 of 3 - Risk 3-dose series) due on 2039 Hepatitis C Screening Completed HIV Screening Completed HPV Vaccine Aged Out ASSESSMENT/PLAN: 1. Anxiety and depression - ICD9: 300.00, 311, ICD10: F41.9, F32.A (primary diagnosis) - stable on current regime - CITALOPRAM 20 MG TABLET - DEPRESSION SCREENING/ASSESSMENT - follow-up yearly and as needed 2. Thyroid disease - ICD9: 246.9, ICD10: E07.9 - stable - LEVOTHYROXINE 75 MCG TABLET 3. Crohn's disease of colon without complication (HCC) - ICD9: 555.1, ICD10: K50.10 - stable at this time Brenda Roy APRN.JEANNIE Prescription instructions reviewed with patient as applicable. Patient advised if symptoms do not improve or if symptoms worsen sooner, to contact their primary care physician. Potential red flag symptoms discussed with the patient. Reviewed appropriate action plan to take if red flag symptoms occur. Patient agreeable to treatment plan. Medical Decision Making: Problems: Moderate: 2+ stable chronic illnesses Risk: Moderate: Drug management Medical Decision Making Level: 4 - Moderate documented [facility] History of Present illness Narrative* Marleni Almonte MD - 10/29/2023 9:50 AM EDT Images from the original note were not included. Some documentation from previous visit of 08/13/2023 was copied and pasted, documentation has been reviewed and edited as necessary for today's visit. Patient Summary: Jennifer is a 43 year old Female who presents for follow-up evaluation of obesity/weight management to treat and prevent related co- morbidities. In our previous visits we have discussed lifestyle intervention including a nutrition recommendations and physical activity optimization. Her last office visit was 3 months ago. Assessment/plan from last visit: -still has days of not sleeping well- discuss sleep hygiene, melatonin will trial - continue phentermine and topiramate - reviewed whole foods, high protein, low carb. Discussed adding in snack at 3pm. Changing timing of topiramate Exercise reviewed Interval History PT specifies the following items as new or significant updates since the last appointment: - consistent light bleeding and cramping with bloating. Has IUD in place. Overall just not feeling great which is preventing her from being as active. When she has pain she tends to eat whatever is available. - pt has Chron's used to stomach aches - and son are now watching what they are eating which she feels will help B- premier powder with water- berries PB2 L- yogurt and cottage and berries, 2 eggs, veggies, cheese D- Tries not to eat late- but does not always happen veggies and GF pasta (measures) and side of protein. - sleeping can be an issue but she reports it is more on her- trying to get a bunch of things completed. - feeling better overall, stayed stable through holidays very happy STARTING WEIGHT WITH first dose phentermine 209lbs(05/22/2022) went to 190lbs Then restarted 10/18 195lbs Date: Wt: 10/29/2023 175lb 08/13/2023 178lb 05/16/2023 177 lb (80.3 kg) 02/20/2023 184 lb (83.5 kg) Weight loss since last vist: 3lbs 08/13/2023 178lb Anti-obesity medications: Phentermine. Benefit:suppression appetite Adverse effects: none Anti-obesity medications: Topiramate. Benefit:?? Unsure if she can notice Adverse effects: none Weight promoting medications: Other celexa Dietary changes: Eating 3 meals a day, including breakfast Increasing water intake Limiting processed foods Increasing protein Current Barriers: poor sleep hygiene and inadequate sleep duration Exercise: decreased Stress: stable Sleep: stable CrCl cannot be calculated (Patient's most recent lab result is older than the maximum 180 days allowed.). 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 90 tablet 0 Phentermine HCl 37.5 mg tablet Take 1 tablet by mouth daily before breakfast for 90 days. 90 tablet0 topiramate (TOPAMAX) 50 mg tablet Take 1 tablet by mouth once daily. 90 tablet 0 citalopram (CELEXA) 20 mg tablet Take 1 tablet by mouth once daily. 90 tablet 1 fexofenadine (LINDSAY) 60 mg tablet Take by mouth. Multivitamin capsule Take 1 capsule by mouth once daily. Ferrous Sulfate (SLOW FE) 142 mg (45 mg iron) TbER Take 1 tablet by mouth every other day. 15 tablet 3 cyanocobalamin (VITAMIN B-12) 1,000 mcg tab Take 1 tablet by mouth once daily. levonorgestrel (MIRENA) 20 mcg/24 hours (7 yrs) 52 mg IUD 1 Each by INTRAUTERINE route one time only. No current facility-administered medications for this visit. 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 Glucose (mg/dL) Date Value 09/13/2022 96 06/21/2021 82 Potassium (mmol/L) Date Value 09/13/2022 3.9 06/21/2021 3.9 Sodium (mmol/L) Date Value 09/13/2022 135 06/21/2021 136 Chloride (mmol/L) Date Value 09/13/2022 102 06/21/2021 103 CO2 (mmol/L) Date Value 09/13/2022 25 06/21/2021 24 Creatinine (mg/dL) Date Value 09/13/2022 0.62 06/21/2021 0.66 BUN (mg/dL) Date Value 09/13/2022 15 06/21/2021 10 Anion Gap (mmol/L) Date Value 09/13/2022 8 06/21/2021 9 Calcium (mg/dL) Date Value 06/21/2021 9.4 Calcium, Total (mg/dL) Date Value 09/13/2022 8.8 Protein, Total (g/dL) Date Value 09/13/2022 7.9 06/21/2021 8.1 Albumin (g/dL) Date Value 09/13/2022 4.6 06/21/2021 4.4 Bilirubin, Total (mg/dL) Date Value 09/13/2022 0.5 06/21/2021 0.6 Alkaline Phosphatase (U/L) Date Value 09/13/2022 54 06/21/2021 53 AST (U/L) Date Value 09/13/2022 14 06/21/2021 18 ALT (U/L) Date Value 09/13/2022 10 06/21/2021 11 WBC (k/uL) Date Value 02/20/2023 5.20 09/13/2022 6.42 RBC (m/uL) Date Value 02/20/2023 4.34 09/13/2022 4.58 Hemoglobin (g/dL) Date Value 02/20/2023 13.1 09/13/2022 13.3 Hematocrit (%) Date Value 02/20/2023 38.8 09/13/2022 39.0 MCV (fL) Date Value 02/20/2023 89.4 09/13/2022 85.2 MCH (pg) Date Value 02/20/2023 30.2 09/13/2022 29.0 MCHC (g/dL) Date Value 02/20/2023 33.8 09/13/2022 34.1 RDW-CV (%) Date Value 02/20/2023 13.0 09/13/2022 13.2 Platelet Count (k/uL) Date Value 02/20/2023 336 09/13/2022 353 MPV (fL) Date Value 02/20/2023 8.3 (L) 09/13/2022 8.5 (L) Cholesterol, Total (mg/dL) Date Value 09/13/2022 167 06/21/2021 168 HDL Cholesterol (mg/dL) Date Value 09/13/2022 58 06/21/2021 47 LDL Cholesterol (mg/dL) Date Value 09/13/2022 94 06/21/2021 102 Triglyceride (mg/dL) Date Value 09/13/2022 76 06/21/2021 94 CrCl cannot be calculated (Patient's most recent lab result is older than the maximum 180 days allowed.). Hemoglobin A1C (%) Date Value 02/20/2023 5.1 FIB-4 Calculation: 0.57 at 02/20/2023 11:09 AM Calculated from: SGOT/AST: 14 U/L at 09/13/2022 9:24 AM SGPT/ALT: 10 U/L at 09/13/2022 9:24 AM Platelets: 336 k/uL at 02/20/2023 11:09 AM Age: 42 years Assessment/Plan: Jennifer Manning is a 43 year old yo with Class I obesity who presented today for follow up for supervised weight loss to treat and prevent related co-morbidities. -Reviewed tracking food and weighing food - cut out carbs for breakfast- add in extra shake later in day - discussed more protein then carbs for dinner - will try Ibuprofen 600 q6 x 10 days for aub if fails will do trial of estrogen - Sleep hygiene and stress levels impact on weight - has met requirement to stay on phentermine, topiramate off label use- no SE and overall doing well. - weight set point reviewed - refills given - annual exam needed Encounter Diagnosis ICD-10-CM 1. Malaise and fatigue R53.81 R53.83 2. Hypothyroidism, unspecified type E03.9 3. Polyarthropathy, inflammatory (HCC) M06.4 4. Other migraine without status migrainosus, not intractable G43.809 topiramate (TOPAMAX) 50 mg tablet 5. Poor sleep Z72.820 topiramate (TOPAMAX) 50 mg tablet 6. Hot flashes R23.2 7. Iron deficiency E61.1 8. Abnormal uterine bleeding (AUB) N93.9 PELVIC US WHI 9. IUD (intrauterine device) in place Z97.5 PELVIC US WHI 10. Class 1 obesity without serious comorbidity with body mass index (BMI) of 31.0 to 31.9 in adult, unspecified obesity type E66.9 Phentermine HCl 37.5 mg tablet Z68.31 11. Encounter for screening mammogram for malignant neoplasm of breast Z12.31 [facility] SCREENING W NURIA Prescription instructions reviewed with patient as applicable. Potential red flag symptoms discussed with the patient. Reviewed appropriate action plan to take ifred flag symptoms occur. Patient agreeable to treatment plan. Follow up in 3 months for weight mgmt I spent a total of 40 minutes on the date of the service which included preparing to see the patient, [id number] patient care, completing clinical documentation, obtaining and/or reviewing separately obtained history, performing a medically appropriate examination, counseling and educating the pat ient/family/caregiver, and ordering medications, tests, or procedures. Marleni Avendaño MD, FACOG, DABOM documented in this encounterS[facility]02-19-2024 Miscellaneous Notes* Telephone Encounter - Mary Miles LPN - 09/16/2023 2:36 PM EST Patient returned call and went over notes below from Brenda Roy MYCOLOGIST with understanding. Aware rx sent to pharmacy. Patient requesting to schedule appt on 10/29/2023 since she has [facility] appt same day in [place]. Scheduled patient for appt at 10/29/2023, at 12 noon with MYCOLOGIST. * Telephone Encounter - Ariane Oquendo LPN - 09/16/2023 2:23 PM EST Left a message for pt to call the office and ask to speak to a nurse. Ariane Oquendo LPN * Telephone Encounter - Brenda Roy APRN.CNP - 09/16/2023 10:36 AM EST Due for appointment. Please assist in scheduling Brenda Roy APRN.CNP * Telephone Encounter - Nilsa Walters Ma - 09/16/2023 9:59 AM EST Patient has been identified by name and date of : Yes, Provider Brenda Roy APRN.ARTIFICIAL TEETH INSPECTOR Date September 16, 2023 Time 9:59 AM Patient phones for refill(s): Requested Prescriptions Pending Prescriptions Disp Refills levothyroxine (SYNTHROID) 75 mcg tablet 90 tablet 3 Sig: Take 1 tablet by mouth daily before breakfast. Date of last office visit in primary care: 08/15/2022 Date of next office visit in primary care: none Please advise. Thank you. Nilsa Walters Ma. documented in this encounterS[facility] [place]10-19-2023 Instructions* Patient Instructions* Marleni Almonte MD - 05/16/2023 12:48 PM EDT Images from the original note were not included. Educational Podcasts: The Dr. Navarro Show- Real Conversations about Health and Weight * April 15, 2023 what you need to know about Carbohydrates and Weight *March 25, 2023 Protein why we need it and how to eat more Protein *March 04, 2023 Menopause and Weight Gain- All the Details with Dr. Tomasa Mcdermott *February 11, 2023 The Science Behind Ultra Processed Food and Weight Gain *November 26, 2022 Effects of sleep and Stress of Weight and Health with Dr. Debbie Porter-DO Shleli * November 19, 2022 Recognizing and Resolving Emotional Eating with Dr. Dhaliwal Obesity: A Disease *November 19, 2022 Episode 80 Clinical conversations: The Role of Physical Activity in Weight Management * March 01, 2023 Episode 84 Clinical Conversations: NAFLD, The [place] Disease of Metabolic Syndrome *February 282019 Episode 20 Article Reviews: The Role Ultra Processed Diets Play in Weight Gain *February 10, 2020 Episode 21 Clinical Conversations: Breaking Weight Plateaus Disrupted Sleep Linked to Weight Gain - YouTube How To Improve Your Sleep To Impact Your Weight Loss: [email or web address] Weight Loss and Sleep Updated May 06, 2020 Written by Bryant Giles Medically Reviewed by Ninfa Graves In This Article The Connection Between Sleep and Weight Sleep and Obesity Sleep During Weight Loss Maintaining a Healthy Relationship With Your Body Losing weight is challenging, and keeping weight off can be just as difficult. Although the medicalcommunity is still untangling the complicated relationship between sleep and body weight, several potential links have emerged that highlight the potential weight loss benefits of getting a good night s rest and the negative health impacts of sleep deprivation. The Connection Between Sleep and Weight Over the past several decades, the amount of time that Americans spend sleeping has steadily decreased1, as has the self-reported quality of that sleep. For much of the same time period, the average body mass index (BMI) of Americans increased2, reflecting a trend toward higher body weights and elevated rates of obesity. In response to these trends, many researchers began to hypothesize about potential connections between weight and sleep. Numerous studies have suggested that restricted sleep and poor sleep quality may lead to metabolic disorders, weight gain, and an increased risk of obesity and other chronic health conditions. While there is continuing debate within the medical community about the exact nature of this relationship, the existing research points to a positive correlation between good sleep and healthy body weight. There remains much to be discovered about the intricate details of how sleep and weight are connected. Several hypotheses offer paths for additional research with the hope that increasing our understanding of the relationship between weight and sleep will lead to reduced obesity and better weight-loss methods. Can Lack of Sleep Increase Appetite? One common hypothesis about the connection between weight and sleep involves how sleep affects appetite. While we often think of appetite as simply a matter of stomach grumbling, it s actually controlled by neurotransmitters, which are chemical messengers that allow neurons (nerve cells) to communicate with one another. The neurotransmitters ghrelin and leptin are thought to be central to appetite. Ghrelin promotes hunger, and leptin contributes to feeling full. The body naturally increases and decreases the levels of these neurotransmitters throughout the day, signaling the need to consume calories3. A lack of sleep may affect the body s regulation of these neurotransmitters. In one study, men who got 4 hours of sleep had increased ghrelin and decreased leptin compared to those who got 10 hours of sleep. This dysregulation of ghrelin and leptin may lead to increased appetite and diminished feelings of fullness in people who are sleep deprived. In addition, several studies have also indicated that sleep deprivation affects food preferences. Sleep-deprived individuals tend to choose foods that are high in calories and carbohydrates4. Other hypotheses regarding the connection between sleep and increased appetite involve the body s endocannabinoid system5 and orexin6, a neurotransmitter targeted by some sleep aids. Many researchers believe that the connection between sleep and dysregulation of neurotransmitters is complicated and additional studies are needed to further understand the neurobiological relationship. Does Sleep Increase Metabolism? Metabolism7 is a chemical process in which the body converts what we eat and drink into energy needed to survive. All of our collective activities, from breathing to exercising and everything in between, is part of metabolism. While activities like exercise can temporarily increase metabolism, sleep cannot8. Metabolism actually slows about 15% during sleep, reaching its lowest level in the morning 9. In fact, many studies have shown that sleep deprivation (whether due to self- induction, insomnia, untreated sleep apnea, or other sleep disorders) commonly leads to metabolic [id number]. Poor sleep is associated with increased oxidative stress, glucose (blood sugar) intolerance (a precursor todiabetes), and insulin resistance. Extra time spent awake may increase the opportunities to eat11, and sleeping less may disrupt circadian rhythms, leading to weight gain12. How is Sleep Related to Physical Activity? Losing sleep can result in having less energy for exercise and physical activity. Feeling tired canalso make sports and exercising less safe, especially activities like weightlifting and or those requiring balance. While researchers are still working to understand this [id number], it s well known that exercise is essential to maintaining weight loss and overall health. Getting regular exercise can improve sleep quality, especially if that exercise involves natural light. While even taking a short walk during the day may help improve sleep, more activity can have a more dramatic impact. Engaging in at least 150 minutes of moderate-intensity or 75 minutes of high-intensity exercise per week can improve daytime concentration and decrease daytime [id number]. Sleep and Obesity In children and adolescents, the link between not getting enough sleep and an increased risk of obesity is well-established, although the reason for this link is still being debated. Insufficient sleep in children can lead to metabolic irregularities as discussed earlier, skipping breakfast in the mornings, and increased intake of sweet, salty, fatty, and starchy foods15. In adults, the research is less clear. While a large analysis of past studies suggests that people getting less than 6 hours of sleep at night are more likely to be diagnosed as obese16, it s challenging for these studies to determine cause and effect. Obesity itself can increase the risk of developing conditions that interfere with sleep, like sleep apnea and depression. It s not clear if getting less sleep is the cause of obesity in these studies, if obesity is causing the participants to getless sleep, or perhaps a mix of both. Even though more studies are needed to understand this connection, experts encourage improving sleep quality when treating obesity in adults. Sleep During Weight Loss Getting adequate, quality sleep is an important part of a healthy weight loss plan. Most importantly, research has shown that losing sleep while dieting can reduce the amount of weight lost17 and encourage xlltfkypyg30. Tips for Quality Sleep During Weight Loss There are many ways to improve sleep. Here are a few research-based tips for sleeping better when you re trying to lose weight: Keep a regular sleep schedule: Big swings in your sleep schedule or trying to catch up on sleep after a week of late nights can cause changes in metabolism and reduce insulin ickmpnmcciu01, making iteasier for blood sugar to be elevated. Sleep in a dark room: Exposure to artificial light while sleeping, such as a TV or bedside lamp, isassociated with an increased risk of weight gain and rmnhlmu21. Don t eat right before bed: Eating late may reduce the success of weight loss [id number] Reduce Stress: Chronic stress may lead to poor sleep and weight gain in several ways, including eating to cope with negative [id number] Be an Early Bird: People with late bedtimes may consume more calories and be at a higher risk for weight gain23. Early birds may be more likely to maintain weight loss when compared to night owls24. Maintaining a Healthy Relationship With Your Body Deciding if you should attempt to change your body weight is a personal decision best made with theguidance of your doctor. Don t take all the health and weight loss information you read atface value. Weight loss isn t appropriate for everyone and doesn t always mean better health. Remember that health is a lifelong journey that includes not only healthy habits but also having a healthy relationship with your body. If you re considering weight loss, the National Institutes of Health offers a helpful resource for choosing a safe weight loss vvcbekw32xHeiadid Source National Centrahoma of Diabetes and Digestive and Kidney DiseasesNIDDK research creates knowledge about and treatmentsfor diseases that are among the most chronic, costly, and consequential for patients, their families, and the Nation. niddk.nih.gov . https://www.sleepfoundation.org/physical-health/xrgfge-ijgg-uwt-sleep HOW DOES CHRONIC STRESS AFFECT EATING PATTERNS? Chronic stress can affect the body s use of calories and nutrients in various ways. It raises the body s metabolic needs and increases the use and excretion of many nutrients. If one does not eat a nutritious diet, a deficiency may occur.Stress also creates a chain reaction of behaviors that can negatively affect eating habits, leading to other health problems down the road. Stress places a greater demand on the body for oxygen, energy, and nutrients. Yet people who experience chronic stress may crave comforting foods such as highly processed snacks or sweets, which can be high in unhealthy fats, sugar, and calories but low in micronutrients. People feeling stress may lack the time or motivation to prepare nutritious, balanced meals, or mayskip or forget to eat meals. Stress can disrupt sleep by causing pet sitting sleep or more frequent awakenings, which leads to fatigue during the day. In order to cope with daytime fatigue, people may use stimulants to increase energy such as with caffeine or high- calorie snack foods. The reverse may also be true that poor-qualitysleep is itself a stressor. Studies have found that sleep restriction causes a significant increasein cortisol levels. During acute stress, adrenaline suppresses the appetite.But with chronic stress, elevated levels ofcortisol may cause cravings, particularly for foods high in sugar, fat, and calories, which may then lead to weight gain. Cortisol favors the accumulation of fat in the belly area, also called central adiposity, which is associated with insulin resistance and an increased risk of type 2 diabetes, cardiovascular disease,and certain breast cancers.4,6-8 It also lowers levels of the hormone leptin (that promotes satiety) while increasing the hormone ghrelin (that increases appetite). https://cdn1.sph.[employer].edu/wp-content/uploads/sites//HeatlhyLivingGu vqs68-54.1.pdf 10 Easy Ways to Increase Your NEAT (Non-exercise activity thermogenesis) One of the best ways to lose those those extra pounds for good and keep it off is to make daily habit changes that can help burn those extra calories during activities you would normally do regardless. What I am talking about is increasing your NEAT. What is NEAT? It is Non-exercise activity thermogenesis. It is the activity that you are able to add into your daily routine outside of the gym thatcan help you in the long run. It can help you lose those ten pounds not this month, but over the next 12 months. In the grand scheme of things, would you not want to be ten pounds pet sitting come next year? Now it is time for me to show you how. For a moment, imagine for me that you we are back before you started going to the gym. Imagine you were slowly gaining about a pound every two to three months. After 3 years of not exercising or working out you realized you are 10 pound heavier. All your clothes feel a little tighter and you just do not feel good in your own skin like how you used to. One day climbing up a flight of stairs you become way too easily winded, and not just that, but your knees are hurting. For some people, this is all too real. That was the wake up call to go to the gym to start exercising. Yet, why do you exercise when you gain weight? The reason is because you were taught that when you begin exercising, you begin to lose the weight you previously put on. The reason for the weight loss is because you have started to burn more calories compared to what you have consumed through your diet. When it comes to fat loss, you want to have a calorie deficit of about 500 calories a day so that about after a week you will be 3500 calories short. Your body is naturally programmed then to pull those calories of energy out of your stored fat. One pound of fat is roughly equal to 3500 calories. So when you burn those calories at the gym and create that calorie deficit you are burning through that stored fat. Another way you can create a calorie deficit is by changing up your diet. If you reduce the calories youeat by a small margin to create a 500 calories deficit then the same result will happen of burning a pound of stored body fat for every 3500 calories you did not eat that you may normally would have.Now finally for NEAT to come into play. We are going through your normal daily life but now you addsome extra Non- exercise activity thermogenesis. You add some daily habits that helped you burn extra calories throughout your day. These extra calories that you burn add to your total daily energy expenditure which means that instead of those calories you were eating becoming stored as fat, you burned those calories, without even stepping into a gym. That is the power of NEAT. Sadly, most individuals do not know of the power of NEAT so most people do gain those ten pounds. Still, NEAT can help you lose that weight gained. Let s say now that you know the power of NEAT you want to incorporate it as part of your daily life and habits with that a positive change of dietary habits and a new exercise program. So let us say you are at the gym going three times a week and hikeonce a week burning a total of 2500 calories at the end of the week. With that you are improving your eating habits and diet and that has created an additional 2000 calories deficit at the end of theweek. So so far a nice sum total of 4500 calories burned in just a single week. Now with a little magical NEAT you add just 100 calories a day of extra activity into your life and therefore an extra 700 calories that you burned in one week! So now you have 5200 calories a week burned between your diet, exercise, and nonexercise activity. Now over a course of a month you have 28,000 calories burned. Over three months time you have 84,000 calories. If you were to burn and have a calories deficit of 84,000 calories that is a sum total of 24 pounds lost! Now if you did not include NEAT into that math you would have lost 21.6 pounds. Still a great amount lost, but after a year you are missing out on those extra 10 pounds you could have lost by barely making a change. Here are 10 examples of NEAT to help you lose weight: WALKING: Walking is an easy activity nearly every one of us can accomplish. All we have to do is increase the number of steps we walk everyday and over time the extra energy used comes from our stores fat. Itis also fairly simple to increase the number of steps you walk throughout the day. You can park your car down the street from your house. You can park at the farthest spot when shopping. You can go for an easy morning walk while you sip your morning cup of Finesse. All the steps will add up over time. COOKING: Most of us cook at least one meal throughout the day. During this time you can add in some simple movements. When I cook, I like to squat deep when I grab a gasca out of the cabinet. When I m reaching for the spices on the shelf I throw in a push-up. When I m waiting for the vegetables to steam I simply bounce or fidget in place while reading or going on social media. The point is while I m coming I am not standing still. For those times I m eating out, I will fidget in line by bouncing on one foot for a bit then switch it up. Sometimes I ll squat while waiting for my coffee. Again, the point is I keep moving. TELEVISION: I watch TV. I would even be lying to you if I said I hardly watch TV. I would be lying to you if I said I sit or lay down and watch TV. When watching my programs or sports on TV I am stretching. I lay down and stretch out my muscles. I ll use the couch as a steady surface to stretch my back out, myshoulders out, my legs out. I never just sit down and watch TV. I stretch and stay active and honestly it is one of the best habits I have created. It has helped me stay loose and I no longer feel guilty about watching TV. It is a win win. Morning Routine: Everyone has a morning routine that they go through during their work week. This is an easy time toadd some extra movement to your day. The moment you get out of bed, do some push-ups. You do not even have to define a specific amount. Just drop down and give me however many you feel like. When yougo to start the coffee pot, I want you to give me some jumping jacks. The moment you go and brush your teeth, give me some squats before you start or maybe even while you are brushing your teeth if you feel like really multitasking. Going out to get the morning paper, I want a burpee when you get to that paper. Just add in some simple movements or tasks that are associated with every stop along your morning routine. Evening Routine Same concept of your morning routine except I want you to do more stretching and more of a yoga pose idea with it. When you are going around the house shutting off the lights, take a deep breath and reach up and then down towards your toes. Locking the doors, I want a nice deep lunge stretch to help loosen up those hip flexors. Do simple more relaxing movements. Not only will these little movement s help burn those extra calories, they are going to help mentally and physically relax you before you sleep. Your Car Most people are getting in and out of their car at least once a day. Every time you are getting into your car, add some movement. You can do jumping jacks, lunges, squats, some hip hinges, do something. I have known people where they will do as many reps of squats for each minute they expect to be driving. If they were going on a long road trip, they would break up those squats during the rest breaks. This is a very simple way to add in those extra calories burned. Personally I like to try getting into and out of my car without using my hands. Some days I will try to mix up only using one foot or the other with no hands trying to carefully slid out of the car. Ditch the Car: If you do not have a crazy commute to work or when running errands or even going out to eat ditch the car for the evening. Many people forget that they can walk places and it will in fact not take long at all. The walk will make you feel good, burn calories, and will help out our environment. Personally I try to ride my bike to work as often as I can. I know others who go and walk to the grocery store when buying only a handful of items. I know of others who take an uber to work in the morning and walk the distance home. The point is at least once a week ditch the car and ride your bike, walk, skate, or even run somewhere you need to go. Work Do not just sit there. If you have a job where you end up sitting down for an extended period of time you are doing harm to yourself. Luckily you can save yourself. Every 5 minutes you sound get up and stand up and squat down and then sit right back down. Anytime you have a break in your workflow, do a little twist in the chair stretching your back out. If you are stuck there reading your emails,add some arm circles in. You won t even have to get out of your chair for those arm circles. All the little movements add up. So please, do it for yourself and do not just sit there. You & Your Significant Other You don t have to be to have a significant other. Exercising with a bestie, a girlfriend orboyfriend or even a pet is a great way to spend time and feel great. Who does not like a long romantic walk down the beach in the sand? Who would not want to go walk or a hike and enjoy nature? Go and holger your dog on all four and be a dog for fifteen minutes. They will enjoy it and so will you. The point is get moving with the your better half and you will be better for it. It will definitely bring the two of you closer as well. Clean Everything Cleaning is a very efficient way to multitask. You are getting those extra calories burned while cleaning whatever you wanted clean anyways. The fun part is make a game out of the cleaning. When I wash my car I see absolutely how fast I can get my car washed and clean. When I begin to vacuum I try to do everything while balancing on one leg or the other. When I sweep my house, I mold breaker the broomstick like I am trying to break it. The point is make it fun to clean and make it a good challenge. I put my laundry basket away from the washer and take jump shots with all my clothes into the washer. This is my favorite one and I highly recommend it if you have a plumbers and top helpers. The gonzalez is that you remember why you are doing every thing. Keep in mind your own goal. I want you to remember on why you are trying to lose weight in the first place. If you focus on that goal and remember to have fun with all these easy steps and tricks to add those extra calories burned, you will get to where you want to be and have fun in the process. Losing weight is not necessarily hard work. It can be fun if you are open to the idea and willing to look a bit goofy at times. I promise youthough every one of these 10 ways to increase your daily NEAT will be effective and will all add upin the end. A great book that I would recommend for anyone reading is the Slight Edge. The book s main theme is that it is the little things done daily that lead to the biggest change. http://www.[employer].com/21-wzyo-cmlf-cb-cticbafl-vgro-neat/ The Role of Exercise in Weight Management No one can deny the psychological and physical benefits of exercise. Regular physical exercise aidsin stress reduction, blood sugar control, cholesterol reduction, and improved sleep. It s also beneficial for weight control. both aerobic and strength training is beneficial for weight control. The ACSM ([employer]) advises 200-300 minutes of moderate- intensity exercise to lose weight and sustain the loss. Aerobic exercise (walking, jogging, swimming, cycling) uses glucose (from glycogen) and triglycerides (from fat in storage) for energy. Strength or resistance training helps build muscle, which is more metabolic at rest than fat tissue. Both are beneficial to weight management. According to the 2018 Physical Activity Guidelines for Americans, Americans are advised to do a minimum of 30 minutes of physical activity most days of the week. This equates to 150 minutes of moderate activity or 75 minutes of vigorous exercise per week for general health. This should include bothaerobic and strength training exercises. However, without calorie restriction, this isn t enough for weight loss or weight maintenance in most people. Currently, 53 % of Americans over 18 do adequate aerobic exercise while only 23% get both aerobic and muscle-strengthening activity. Most [place] adults are still too sedentary. A sedentary lifestyle is associated with cardiovascular disease, type 2 diabetes, and certain types of cancer including endometrial, colon, and lung cancer. Which types of exercise aid in weight control? How much should I do? In addition to caloric restriction, both aerobic and strength training is beneficial for weight control. The ACSM ([employer]) advises 200-300 minutes of moderate-intensity exercise to lose weight and sustain the loss.Moderate-intensity exercises include brisk walking, jogging, using a rowing machine, or doing a 50-60 minute dance class. To police judge the level of intensity you should aim for, think of it this way: a person should be able to carry a conversation but not be able to sing. HIIT (high-intensity interval training) is one method of exercise that may be beneficial to those who are trying to lose weight and are short on time. One way to do HIIT involves doing high-intensityexercise (such as sprinting) for 60 seconds followed by 60 seconds of low-intensity exercise (walking) or rest. Exercises are repeated 8 times with rest for a few minutes, then repeated until 30 minutes of exercise is completed. A meta-analysis of 39 studies with 671 participants showed that HIIT reduced total, abdominal, and visceral fat mass in both men and women aged 38.8 +/- 14.4. Running was more effective than cycling in lowering total and visceral fat mass while low-intensity exercise (like walking) also resulted inabdominal and visceral fat loss. The latter took more time. HIIT training is typically done a few days a week. Individuals are advised to choose less intense exercises in between HIIT training days. More muscle matters! One of the biggest reasons (no pun intended) that adults gain weight over time is due to muscle loss. A comparison study of various methods of exercise was performed with older subjects with obesity.Subjects got randomly assigned to a weight control program along with one of four programs: aerobictraining, resistance training, combined aerobic and resistance training, or a control group (no treatment). The initial outcome was the change in Physical Performance Test Scores from the start to 6 months after the study began, while secondary outcomes included changes in body composition, bone mineral density, and physical function. There were 141 total subjects that finished the study. Physical Performance Test score was higher in the combination group than in the aerobic and resistance groups. Bodyweight decreased in all exercise groups (9%) but not in the control group. Lean mass and bone density were maintained the most in the combination and resistance groups. Strength also increased in the resistance training and combination training groups. As muscle is more metabolic than fat, maintaining muscle mass is important to long-term weight control. It s important for individuals who have been sedentary to check with their doctors before embarkingon a new exercise program. While HIIT training may be appropriate for younger individuals and/or those without comorbidities like cardiovascular disease, it s important to find an exercise that s enjoyable. Physical activities could include: Multiple bouts of moderately paced walking a few times per day. Use of an elliptical or rowing machine or a water aerobics class A walking video to use at home Playing tennis or pickleball Trying a regular or stationary bike or a spin class Joining a kickboxing or Jimbo class at a gym or rec center Resistance training may include: Use of stretch bands Multiple reps of small hand weights Use of nautilus machines A pilates class (in person or at home) Tips to reduce food cravings Aim to eat nutritionally balanced meals. Foods with protein and fiber provide longer-lasting satisfaction. Avoid long stretches of not eating. Eat a nutritious meal or snack every 3-4 hours. Waiting too long to eat because you are busy or distracted may only lead to stronger hunger when you do eat and therisk of overeating. Also keep in mind that if your bedtime is more than 4 hours after you ve finished dinner, you may feel hungry again; to avoid snacking late night which can disrupt sleep, try to go to bed earlier when possible. Avoid choosing hyperpalatable or ultraprocessed snacks that are high in sodium, fat, sugar, and calories but low in nutrition. These are the types of foods that trigger the brain reward pathways and cause cravings to eat more. Choose satisfying, less-processed snacks like fresh fruit, a handful of nuts, or a cup of low-sugar yogurt. Limit environmental cues to eat, such as scrolling through social media posts about food or mukbang(online videos of people eating enormous quantities of decadent meals) and watching television cooking shows. In an office setting, detour away from the candy bowls and platters of bagels and treats that may be sitting in the break room. Food cravings are sometimes learned behaviors that are associated with an event or environment, such as craving potato chips while watching late-night television. If so, research suggests that it is possible to unlearn the behavior and reduce the craving by avoiding the food completely for an extended time. [25] In addition, you can try changing the association by changing your evening routine with a different activity like listening to an audiobook or podcast. Practice mindfulness when sensing a growing craving. Ask yourself if you are stressed, bored, angry? If so, try instead doing breathing exercises, talking a brisk 5-10 minute walk, listening to a meditation lesley or podcast, or playing a few favorite songs. If you can distract yourself from eating for about 5-7 minutes, the craving may subside. Learn more about mindful eating. Try other dopamine-inducing activities such as taking a walk in nature on a saul day, dancing, or watching a funny video and laughing aloud! Tips for eating away from home: [employer] video: https://www.[employer]com/watch?v=M8nJQNoFUhS Meals away from home make it harder to control ingredients, calories, and portions. This can be particularly challenging for people with Type 2 diabetes (and for those of us trying to avoid getting this condition). The following tips can help you enjoy eating out without abandoning your efforts to eat well. Ask how the food is prepared. Before you order, ask about ingredients and how the menu selections are prepared. Try to choose dishes made with whole grains, healthy oils, vegetables, and lean proteins. Meat that has been broiled, poached, baked, or grilled is a more health-conscious option than fried foods or dishes prepared with heavy sauces. Look for less. Your eyes are the perfect instrument for sizing up portion sizes. Use your estimating techniques to size up the food on your plate. 1 thumb tip = 1 teaspoon of peanut butter, butter, or sugar 1 finger = 1 oz. of cheese 1 fist = 1 cup cereal, pasta, or vegetables 1 handful = 1 oz. of nuts or pretzels 1 palm = 3 oz. of meat, fish, or poultry Plan on eating half your meal and take the rest home to enjoy for lunch or dinner the next day. Order an extra side of veggies. Non-starchy vegetables, such as green beans, broccoli, asparagus, or summer squash, will help you fill up with low-calorie choices. Think ahead. Learn important nutrition information ahead of time. Most fast-food chains provide calories, sodium, and fat content for their menu items. Check out www.[facility] for a listing of over 50,000 foods, including many restaurant items. You can also visit company-specific websites Dining Out Tips Dining out is tricky. You have less control over ingredients & portions so even when you think you re ordering healthy, it s likely way more calories & less nutrition than a similar meal you d make at home. Research shows people who do best losing weight & keeping it off don t dine out much only 2.5 times out of 21 meals in a week. So, when you do dine out, make sure to use these PRO TIPS to keep your body happy DINE OUT LIKE A PRO 1. RUIN Your Appetite. About 1.5 hrs before you go out, eat something to cut hunger so you don t get to the restaurant & dive head first into the breadbasket. Try a produce + protein snack such as an apple + almonds or celery + sunflower seed butter. 2. Know BEFORE You Go. Do a few minutes of research before you re swept up in a whirlwind of socializing & drinking. This could be as simple as perusing the online menu on your phone on the ride to the restaurant. 3. Order a [employer] BUNDLE. Pair a healthy superfood with a less-healthy craving. It s the only way to honor both your inner health nut and wild child. At a [facility] joint and really want the pulled pork? Get it - but instead of plopping it on a refined grain bun, ask to put it alongside a salad. 4. Limit FLAVORS. Research shows variety stimulates appetite, meaning tasting little bits of many different foods will trigger you to over eat. So if you find yourself facing a tableful of small plates or buffet-style eating, commit to your absolute favorites rather than sampling every option. 5. Entree + ONE. It s often not just the meal that racks up CRAP calories, it s also the add-on apps + drinks + desserts. Focus on your main and skip these extras, or at least just pick your favoriteONE. Smart: Pick an appetizer salad! When [place] researchers gave women a 100-calorie appetizer ofeither a salad or garlic bread, those who had the tiny salad ended up eating 21% less of their maincourse. How To Swap Sweet Treats This is the most important week yet. What the heck do you do when you want something sweet!??!! DO NOT: Focus on giving up your favorite treats. DO: Find new favorites without all the added sugar. The goal is not to just white knuckle it & force yourself to not eat sweets, but rather to findnew things to ADD & enjoy. 3 SWEET TOOTH HELPERS: 1) Natural Sugars Foods w/ natural sugar can help a sweet tooth while adding vitamins & minerals. examples: fresh fruit, unsweetened frozen fruit, plain 2% yogurt 2) Fats Fat is satisfying so it can give a quick pleasure fix without blood sugar spikes. examples: nut butter, coconut butter, nuts, seeds 3) Foods w/ Sweet Flavor Some foods have a sweet flavor on your taste buds, but don't actually have sugar. examples: cinnamon, cocoa powder/nibs, vanilla, unsweetened coconut flakes GET READY TO SUGAR SWAP! Breaking up with sugar doesn't mean the fun is over! PRODUCT SWAPS Restock your fav condiments & packaged goods to the no added sugar versions such as salad dressing, ketchup, BBQ sauce, hot sauce, pasta sauce, yogurt, oatmeal, plant milk & nut butter. PS: This doesn't mean artificially sweetened products, just ones with no added sugar. Check those labels. QUICKIE SWAPS Here are some of my favorite sugar swaps for when a craving hits: flavored creamer & sugar in coffee SWAP: coconut milk & cinnamon in coffee hernandez flavored yogurt SWAP: plain 2% yogurt w/ mashed berries chocolate chip cookie SWAP: stevia-sweetened dark chocolate apple cinnamon flavored oatmeal SWAP: oats w/ diced apple, cinnamon & almonds store bought protein bar SWAP: hard boiled egg ice cream SWAP: frozen banana slices w/ cocoa powder soda pop SWAP: sparkling water w/ shot of 100% fruit juice granola SWAP: DIY trail mix (chopped nuts, unsweetened coconut flakes, cocoa nibs) fruity candy SWAP: unsweetened dried valentin kettle corn SWAP: popcorn drizzled w/ nut butter & cinnamon sundae SWAP: fruit topped w/ real whipped cream (shake whipping cream & vanilla in cold arianne jar) peanut butter & jelly SWAP: strawberries dipped in nut butter mint blossom SWAP: plain 2% yogurt w/ peppermint stevia & cocoa nibs RECIPE SWAPS Here are some of my favorite sugar swap recipes w/ no added sugar: protein bites (recipe link) froyo bark (recipe link) chocolate duglas pudding (recipe link) chickpea cookie dough (recipe link) banana bread muffins (recipe link) 3-ingredient banana bread cookies (recipe link) pumpkin spice nice cream (recipe link) fruit sorbet (recipe link) freezer fudge (recipe link) chocolate magic shell (recipe link) FAQ Q: If I really want something sweet, can I use sweeteners? A: Yes. I recommend stevia or monk fruit since they are zero-calorie, naturally- based sweeteners. Use them only sparingly since they can keep you programmed to like foods with intense sweetness. Aim to avoid artificial sweeteners like you would find in pink (saccharin), blue (aspartame), and yellow(sucralose) packets. Q: Can I ever eat sugar again?? A: HELL YES! This isn't just about avoidance. It's about being awake. Making choices of when to enjoy sugar on your own terms. You controlling it & not the other way around. My favorite personal solution: SOCIAL sweets/treats/alcohol which is about eating in situations that bring KHUSHI. Sugar School Lesson 3: How To Swap Sweet Treats PHILLY [employer]) Foods that fight inflammation April 15, 2020 Doctors are learning that one of the best ways to reduce inflammation lies not in the medicine cabinet, but in the refrigerator. By following an anti- inflammatory diet you can fight off inflammation for good. What does an anti-inflammatory diet do? Your immune system becomes activated when your body recognizes anything that is foreign--such as an invading microbe, plant pollen, or chemical. This often triggers a process called inflammation. Intermittent bouts of inflammation directed at truly threatening invaders protect your health. However, sometimes inflammation persists, day in and day out, even when you are not threatened by aforeign invader. That's when inflammation can become your enemy. Many major diseases that plague us--including cancer, heart disease, diabetes, arthritis, depression, and Alzheimer's--have been linked to chronic inflammation. One of the most powerful tools to combat inflammation comes not from the pharmacy, but from the grocery store. Many experimental studies have shown that components of foods or beverages may have anti-inflammatory effects, says Dr. Stephan Payne, professor of nutrition and epidemiology in the Department of Nutrition at the [employer]. Choose the right anti-inflammatory foods, and you may be able to reduce your risk of illness. Consistently pick the wrong ones, and you could accelerate the inflammatory disease process. Get simple tips to fight inflammation and stay healthy -- from [employer] experts. Protect yourself from the damage of chronic inflammation Click here to learn more Foods that cause inflammation Try to avoid or limit these foods as much as possible: refined carbohydrates, such as white bread and pastries [place] fries and other fried foods soda and other sugar-sweetened beverages red meat (burgers, steaks) and processed meat (hot dogs, sausage) margarine, shortening, and lard The health risks of inflammatory foods Not surprisingly, the same foods on an inflammation diet are generally considered bad for our health, including sodas and refined carbohydrates, as well as red meat and processed meats. Some of the foods that have been associated with an increased risk for chronic diseases such as type 2 diabetes and heart disease are also associated with excess inflammation, Dr. Payne says. It's not surprising, since inflammation is an important underlying mechanism for the development of these diseases. Unhealthy foods also contribute to weight gain, which is itself a risk factor for inflammation. 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 Some of the food components or ingredients may have independent effects on inflammation over and above increased caloric intake, Dr. Payne says. Anti-inflammatory foods An anti-inflammatory diet should include these foods: tomatoes olive oil green leafy vegetables, such as spinach, kale, and collards nuts like almonds and walnuts fatty fish like salmon, mackerel, tuna, and sardines fruits such as strawberries, blueberries, cherries, and oranges Benefits of anti-inflammatory foods On the flip side are beverages and foods that reduce inflammation, and with it, chronic disease, says Dr. Payne. He notes in particular fruits and vegetables such as blueberries, apples, and leafy greens that are high in natural antioxidants and polyphenols--protective compounds found in plants. Studies have also associated nuts with reduced markers of inflammation and a lower risk of cardiovascular disease and diabetes. Coffee, which contains polyphenols and other anti-inflammatory compounds, may protect against inflammation, as well. Anti-inflammatory diet To reduce levels of inflammation, aim for an overall healthy diet. If you're looking for an eating plan that closely follows the tenets of anti-inflammatory eating, consider the Mediterranean diet, which is high in fruits, vegetables, nuts, whole grains, fish, and healthy oils. In addition to lowering inflammation, a more natural, less processed diet can have noticeable effects on your physical and emotional health. A healthy diet is beneficial not only for reducing the risk of chronic diseases, but also for improving mood and overall quality of life, Dr. Payne says. [facility] History of Present illness Narrative* Marleni Almonte MD - 05/16/2023 9:20 AM EDT Images from the original note were not included. Some documentation from previous visit of 02/20/23 was copied and pasted, documentation has been reviewed and edited as necessary for today's visit. Patient Summary: Jennifer is a 42 year old female who presents for follow-up evaluation of her obesity/weight management to treat and prevent relatedco- morbidities. In our previous visits we have discussed lifestyle intervention including a nutrition recommendations and physical activity optimization. Her last office visit was 3 months ago. Assessment/plan from last visit: Poor sleep Exercise- FITT rx reviewed Phentermine-met 5% requirement ADDED topiramate Needs more exercise- feels does not have time for herself Fatigue & Malaise Low carb- higher protein, whole foods Interval History Started topiramate with phentermine- no side effects. Getting at least 90 g protein per day- not always tracking b/c she is eating same thing daily. Using protein shakes and bars. Getting more protein in now- being more conscientious about carbs and nutritious foods. Chocolates has poor flavor now that she has started it. Soda still has good flavor. Cravings are decreased, carroll faster. Drinking lots of fluids- trying to drink fluids before eating. Protein snack - 3pm before dinner. Increased stress with the student passing away at school- but seems to be improving now. She reports lowest weight at home was 171lbs. Had difficult time after the student recently but trying to get back to routine. 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 STARTING WEIGHT WITH first dose phentermine 209lbs(05/22/2022) went to 190lbs Then restarted 10/18 195lbs Last 2 Encounter Wt Readings: Date: Wt: 02/20/2023 184 lb (83.5 kg) 01/07/2023 186 lb (84.4 kg) Weight loss since last vist: 7lbs Anti-Obesity Medications >Phentermine: No uncontrolled HTN, No CVD Hx or hx of seizure disorder. No MAOI inhibitor use. No drug abuse hx. Crcl > 15. >Topiramate/zonisamide: No seizure or kidney stone hx. hx of migraines, yes hx of poor sleep.yes Child bearing age. >Qsymia: see above >Contrave: No contraindications. Could affect mood. No uncontrolled HTN or hx of seizure disorder. No MAOI inhibitor use. No opiate use. >Saxenda/Wegovy/Ozempic: Cost. Ins coverage? >Metformin: No contraindications or medication interactions. eGFR > 30. CrCl cannot be calculated (Patient's most recent lab result is older than the maximum 180 days allowed.). 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 90 tablet 1 topiramate (TOPAMAX) 50 mg tablet Take 1 tablet by mouth once daily. 30 tablet 2 Phentermine HCl 37.5 mg tablet Take 1 tablet by mouth daily before breakfast for 90 days. 30 tablet2 fexofenadine (LINDSAY) 60 mg tablet Take by mouth. Multivitamin capsule Take 1 capsule by mouth once daily. Ferrous Sulfate (SLOW FE) 142 mg (45 mg iron) TbER Take 1 tablet by mouth every other day. 15 tablet 3 levothyroxine (SYNTHROID) 75 mcg tablet Take 1 tablet by mouth daily before breakfast. 90 tablet 3 cyanocobalamin (VITAMIN B-12) 1,000 mcg tab Take 1 tablet by mouth once daily. levonorgestrel (MIRENA) 20 mcg/24 hours (7 yrs) 52 mg IUD 1 Each by INTRAUTERINE route one time only. No current facility-administered medications for this visit. CONTROL: IUD- MIRENA ALESSIO Denies CP, palpitations, Paraesthesias, Brain fog. BP 126/76 Pulse 69 Wt 177 lb (80.3 kg) LMP 04/25/2021 SpO2 96% BMI 28.57 kg/m Physical Exam Gen: female in NAD Waist circumference: 37.25 Assessment/Plan: Jennifer Manning is a 42 year old yo female with class 1 obesity who presented today for follow upfor supervised weight lossto treat and prevent related co-morbidities. Reviewed again importance of getting at least 90-120 g of protein during weight loss phase. Discussed adding more weight lifting to routine.ok to change timing of topiramate. Continue to track as it will keep her on track and hold her more accountable. 1. Malaise and fatigue 2. Polyarthropathy, inflammatory (HCC) 3. Hypothyroidism, unspecified type 4. Class 1 obesity without serious comorbidity with body mass index (BMI) of 31.0 to 31.9 in adult,unspecified obesity type - Phentermine HCl 37.5 mg tablet; Take 1 tablet by mouth daily before breakfast for 90 days. Dispense: 90 tablet; Refill: 0 5. Other migraine without status migrainosus, not intractable - topiramate (TOPAMAX) 50 mg tablet; Take 1 tablet by mouth once daily. Dispense: 90 tablet; Refill: 0 6. Poor sleep - topiramate (TOPAMAX) 50 mg tablet; Take 1 tablet by mouth once daily. Dispense: 90 tablet; Refill: 0 Pt understands off label use of continued use of phentermine but has responded well. Pt has no SE with either medication. She understands off label use of topiramate and is doing well with improvement in cravings. I spent a total of 40 minutes on the date of the service which included preparing to see the patient, [id number] patient care, completing clinical documentation, obtaining and/or reviewing separately obtained history, performing a medically appropriate examination, counseling and educating the pat ient/family/caregiver, and ordering medications, tests, or procedures. Follow up in 3 months Marleni Avendaño MD documented in this encounter[facility] Instructions* Patient Instructions* Marleni Almonte MD - 02/20/2023 3:40 PM EDT Images from the original note were not included. TOPIRAMATE -- Take 25mg every day for 2 weeks -- Then increase 50mg if there is no change in your appetite, cravings or weight. Or can move them up to dinner time- or you can do 25 mg in the am and 25 mg in the evening if it doesn't make you tired. -- You can take the tablet it at night at first (because of potential sleepiness side effects), butthen you can take earlier around dinner after you have started the medication for a few days. You also may be able to take it in the morning if easier. -- We may increase the dose t If at any point you are feeling the effects of the medication you can stay at that dose or if you experience side effects you can decrease it to the previous dose. -- Please see the handout to review the potential side effects and to explain this further -- Please let me know if you experience any changes in your vision, worsening depression or mood problems, or an increase in suicidal thoughts or behaviors. --This medication should NOT be combined with alcohol. Risks of drinking alcohol while taking this medication include mental and psychological side effects, including confusion, dizziness, drowsiness, and depression. -- There is an increased risk for oral clefts when topiramate is used in the first trimester of . -- There is a possible decrease in contraceptive efficacy when using estrogen- containing control with topiramate, please use a back up form of control such as condoms and monitor for throughout treatment. -- If you decide that you would like to get or if you have any of these side effects please let me know and we can safely discontinue the medication. - If you are on loop diuretic or thiazide diuretic we will want to monitor your potassium level, especially if you have a history of low potassium. - It is important to taper off of this medication when we finished with treatment, typically decreasing the dose 25 mg a week. Stopping Topiramate abruptly can cause irritability, anxiety and difficulty concentrating. -- The exact mechanism of topiramate on energy balance regulation is not clearly understood. Topiramate affects body mass index, fasting hrcdbhc-ez-pityxfw ratio, and serum leptin and cortisol levels. It has shown to improve hypothalamic insulin and leptin signaling and action and reduce obesity inmice. These changes may be gonzalez factors in weight loss due to topiramate. Topiramate (toe pyre a mate) What are the common names? Topamax Why is this medication prescribed? Topiramate is an anti-epileptic medications which has been approved by the FDA for patients 10 years of age or older for treatment of seizures. However, topiramate also has other uses such as the treatment of migraines. It also causes decrease in appetite and weight loss. The mechanism of weight loss is thought to be through inhibition of mitochondrial enzymes involved in energy expenditure and metabolism. Topiramate may work by helping you feel less hungry, less driven to eat, more satisfied with less food. What special precautions should I follow? Before having topiramate prescribed, tell your doctor and pharmacist: If you have allergies to any component of topiramate If you are , plan to become , are breast-feeding, or if you become while taking topiramate What are the warnings and precautions for this medication? Immediately discontinue the medicine and seek medical help if you have severe cognitive/neuropsychiatric adverse symptoms or eye symptoms. Cognitive/neuropsychiatric adverse events: symptoms may include confusion, psychomotor slowing, difficulty with concentration/attention, difficulty with memory, speech or language problems, particularily word-finding difficulties, somnolence or fatigue Acute myopia and secondary angle closure glaucoma, usually within 1 month of starting treatment: symptoms may include blurred vision, redness and/or pain in the eye Oligohydrosis (decrease sweating) and hyperthermia (elevation in body temperature) Increase in suicidal behavior or ideation Metabolic acidosis, non-gap hyperchloremic (decreased serum bicarbonate below normal levels) resulting in hyperventilation or fatigue Kidney stones Paresthesias (numbness or tingling in hands or feet) Ataxia Dizziness Increase in urination frequency Drug interactions. Use of monamine oxidase inhibitors (MAOI s), valproic acid, Caution use with dehydration or diarrheal illness, hepatic or renal impairment In case of emergency/overdose In case of overdose, call your local poison control center at or call local emergency services at [phone]. What other information should I know? Keep all appointments with your doctor and the laboratory. Do not let anyone else take your medication. Topiramate use needs to be monitored closely. Prescriptions may be refilled only a limited number of times. Keep a written list of all of your prescription and nonprescription (dkeb-vai-plxijmt) medicines, in addition to vitamins, minerals, or other dietary supplements. How should I monitor while on this medication? Your doctor will check your baseline kidney function and electrolytes prior to starting this medication, then periodically. Continue to improve your dietary and physical activity habits as the combination works best while on this medication. Start out by taking the medication at bedtime as it can cause fatigue and sleepiness. Be sure to eat regular meals. Less hunger does not make it appropriate to skip meals. Make sure to have an eye exam, including the pressure in your eyes (intra-ocular pressure), once a year. What should I do if I forget a dose? Skip the missed dose and continue your regular dosing schedule the next day. Do not take a double dose to make up for a missed one. Sources Pubmed Health: http://www.ncbi.nlm.nih.gov/pubmedhealth/FOL1611586/ Drugs.com http://www.drugs.com/pro/topiramate.html When you take medications like TOPAMAX and ZONEGRAN they tend to cause an imbalance in your pH levels. This imbalance causes side effects like foggy head, forgetfulness, confusion, difficulty recalling simple words or names, and tingling in your hands and feet. Citric acid may help to neutralize the imbalance caused by the medication. Also stay hydrated! With low fluid intake, urine output is decreased and urine flow is slower, bothof which increase the risk of pH imbalance. Avoid soda as well. Increase the proportion of fruits and vegetables and reduce your daily protein intake to 0.8-1.0 g per kg body weight. Wiren Board Link: [employer] Hydration Universal Devices : TRUE LEMON Water Enhancer True Lemon (Reward[employer]ap) If neither of these are effective you can try: Euphasia https://Citrus.Laura Sapiens/pages/xxeqksv-jbmv-hxmrudc Sources https://www.ncbi.nlm.nih.gov/pmc/articles/NPA6890310/ https://www.ncbi.nlm.nih.gov/pmc/articles/NSM1342653/ Disrupted Sleep Linked to Weight Gain - YouTube How To Improve Your Sleep To Impact Your Weight Loss: https://[employer]/ep42/ Weight Loss and Sleep Updated May 06, 2020 Written by Bryant Giles Medically Reviewed by Ninfa Graves In This Article The Connection Between Sleep and Weight Sleep and Obesity Sleep During Weight Loss Maintaining a Healthy Relationship With Your Body Losing weight is challenging, and keeping weight off can be just as difficult. Although the medicalcommunity is still untangling the complicated relationship between sleep and body weight, several potential links have emerged that highlight the potential weight loss benefits of getting a good night s rest and the negative health impacts of sleep deprivation. The Connection Between Sleep and Weight Over the past several decades, the amount of time that Americans spend sleeping has steadily decreased1, as has the self-reported quality of that sleep. For much of the same time period, the average body mass index (BMI) of Americans increased2, reflecting a trend toward higher body weights and elevated rates of obesity. In response to these trends, many researchers began to hypothesize about potential connections between weight and sleep. Numerous studies have suggested that restricted sleep and poor sleep quality may lead to metabolic disorders, weight gain, and an increased risk of obesity and other chronic health conditions. While there is continuing debate within the medical community about the exact nature of this relationship, the existing research points to a positive correlation between good sleep and healthy body weight. There remains much to be discovered about the intricate details of how sleep and weight are connected. Several hypotheses offer paths for additional research with the hope that increasing our understanding of the relationship between weight and sleep will lead to reduced obesity and better weight-loss methods. Can Lack of Sleep Increase Appetite? One common hypothesis about the connection between weight and sleep involves how sleep affects appetite. While we often think of appetite as simply a matter of stomach grumbling, it s actually controlled by neurotransmitters, which are chemical messengers that allow neurons (nerve cells) to communicate with one another. The neurotransmitters ghrelin and leptin are thought to be central to appetite. Ghrelin promotes hunger, and leptin contributes to feeling full. The body naturally increases and decreases the levels of these neurotransmitters throughout the day, signaling the need to consume calories3. A lack of sleep may affect the body s regulation of these neurotransmitters. In one study, men who got 4 hours of sleep had increased ghrelin and decreased leptin compared to those who got 10 hours of sleep. This dysregulation of ghrelin and leptin may lead to increased appetite and diminished feelings of fullness in people who are sleep deprived. In addition, several studies have also indicated that sleep deprivation affects food preferences. Sleep-deprived individuals tend to choose foods that are high in calories and carbohydrates4. Other hypotheses regarding the connection between sleep and increased appetite involve the body s endocannabinoid system5 and orexin6, a neurotransmitter targeted by some sleep aids. Many researchers believe that the connection between sleep and dysregulation of neurotransmitters is complicated and additional studies are needed to further understand the neurobiological relationship. Does Sleep Increase Metabolism? Metabolism7 is a chemical process in which the body converts what we eat and drink into energy needed to survive. All of our collective activities, from breathing to exercising and everything in between, is part of metabolism. While activities like exercise can temporarily increase metabolism, sleep cannot8. Metabolism actually slows about 15% during sleep, reaching its lowest level in the morning 9. In fact, many studies have shown that sleep deprivation (whether due to self- induction, insomnia, untreated sleep apnea, or other sleep disorders) commonly leads to metabolic [id number]. Poor sleep is associated with increased oxidative stress, glucose (blood sugar) intolerance (a precursor todiabetes), and insulin resistance. Extra time spent awake may increase the opportunities to eat11, and sleeping less may disrupt circadian rhythms, leading to weight gain12. How is Sleep Related to Physical Activity? Losing sleep can result in having less energy for exercise and physical activity. Feeling tired canalso make sports and exercising less safe, especially activities like weightlifting and or those requiring balance. While researchers are still working to understand this [id number], it s well known that exercise is essential to maintaining weight loss and overall health. Getting regular exercise can improve sleep quality, especially if that exercise involves natural light. While even taking a short walk during the day may help improve sleep, more activity can have a more dramatic impact. Engaging in at least 150 minutes of moderate-intensity or 75 minutes of high-intensity exercise per week can improve daytime concentration and decrease daytime [id number]. Sleep and Obesity In children and adolescents, the link between not getting enough sleep and an increased risk of obesity is well-established, although the reason for this link is still being debated. Insufficient sleep in children can lead to metabolic irregularities as discussed earlier, skipping breakfast in the mornings, and increased intake of sweet, salty, fatty, and starchy foods15. In adults, the research is less clear. While a large analysis of past studies suggests that people getting less than 6 hours of sleep at night are more likely to be diagnosed as obese16, it s challenging for these studies to determine cause and effect. Obesity itself can increase the risk of developing conditions that interfere with sleep, like sleep apnea and depression. It s not clear if getting less sleep is the cause of obesity in these studies, if obesity is causing the participants to getless sleep, or perhaps a mix of both. Even though more studies are needed to understand this connection, experts encourage improving sleep quality when treating obesity in adults. Sleep During Weight Loss Getting adequate, quality sleep is an important part of a healthy weight loss plan. Most importantly, research has shown that losing sleep while dieting can reduce the amount of weight lost17 and encourage [id number]. Tips for Quality Sleep During Weight Loss There are many ways to improve sleep. Here are a few research-based tips for sleeping better when you re trying to lose weight: Keep a regular sleep schedule: Big swings in your sleep schedule or trying to catch up on sleep after a week of late nights can cause changes in metabolism and reduce insulin [id number], making iteasier for blood sugar to be elevated. Sleep in a dark room: Exposure to artificial light while sleeping, such as a TV or bedside lamp, isassociated with an increased risk of weight gain and [id number]. Don t eat right before bed: Eating late may reduce the success of weight loss [id number] Reduce Stress: Chronic stress may lead to poor sleep and weight gain in several ways, including eating to cope with negative [id number] Be an Early Bird: People with late bedtimes may consume more calories and be at a higher risk for weight gain23. Early birds may be more likely to maintain weight loss when compared to night owls24. Maintaining a Healthy Relationship With Your Body Deciding if you should attempt to change your body weight is a personal decision best made with theguidance of your doctor. Don t take all the health and weight loss information you read [id number] atface value. Weight loss isn t appropriate for everyone and doesn t always mean better health. Remember that health is a lifelong journey that includes not only healthy habits but also having a healthy relationship with your body. If you re considering weight loss, the National Institutes of Health offers a helpful resource for choosing a safe weight loss [id number] Source National Centrahoma of Diabetes and Digestive and Kidney DiseasesNIDDK research creates knowledge about and treatmentsfor diseases that are among the most chronic, costly, and consequential for patients, their families, and the Nation. niddk.nih.gov . https://www.sleepfoundation.org/physical-health/jmqhhp-ektf-vfq-sleep HOW DOES CHRONIC STRESS AFFECT EATING PATTERNS? Chronic stress can affect the body s use of calories and nutrients in various ways. It raises the body s metabolic needs and increases the use and excretion of many nutrients. If one does not eat a nutritious diet, a deficiency may occur.Stress also creates a chain reaction of behaviors that can negatively affect eating habits, leading to other health problems down the road. Stress places a greater demand on the body for oxygen, energy, and nutrients. Yet people who experience chronic stress may crave comforting foods such as highly processed snacks or sweets, which can be high in unhealthy fats, sugar, and calories but low in micronutrients. People feeling stress may lack the time or motivation to prepare nutritious, balanced meals, or mayskip or forget to eat meals. Stress can disrupt sleep by causing pet sitting sleep or more frequent awakenings, which leads to fatigue during the day. In order to cope with daytime fatigue, people may use stimulants to increase energy such as with caffeine or high- calorie snack foods. The reverse may also be true that poor-qualitysleep is itself a stressor. Studies have found that sleep restriction causes a significant increasein cortisol levels. During acute stress, adrenaline suppresses the appetite.But with chronic stress, elevated levels ofcortisol may cause cravings, particularly for foods high in sugar, fat, and calories, which may then lead to weight gain. Cortisol favors the accumulation of fat in the belly area, also called central adiposity, which is associated with insulin resistance and an increased risk of type 2 diabetes, cardiovascular disease,and certain breast cancers.4,6-8 It also lowers levels of the hormone leptin (that promotes satiety) while increasing the hormone ghrelin (that increases appetite). https://cdn1.sph.[employer] [place].edu/wp-content/uploads/sites//HeatlhyLivingGu itc86-01.1.pdf Why People Diet, Lose Weight and Gain It All Back Plus 4 ways to break the cycle + maintain your weight loss You -- and your diet -- have been firing on all cylinders. The weight is melting off, and you re feeling your best. But then there is that seemingly inevitable backslide, with pound after pound creeping back on despite your best efforts. It s the ultimate Catch-22. But before you beat yourself up, waist cutter and obesity specialist Isaias Hernandez MD, has some welcome news: It s most likely not your fault. Your body is fighting to keep your weight as it was before the dieting, he says. But take heart -- it s possible to win the bautista. What weight set point has to do with it Experts think as many as 80 to 95% of dieters gain back the weight they ve worked so hard to lose. Why? (WHY?!?) Dr. Hernandez says the culprit is your weight set point : the weight your body is programmed to be.Your weight set point is a combination of several factors, including your: Genetics. Hormones. Behavior. Environment. Weight set point and metabolism play for the same team: Your metabolism so energy at a rate thatwill maintain your weight set point, even if that point is heavier than is healthy. Most of the time, weight gain is gradual, and that can raise your set point gradually, too, notes Dr. Hernandez. But certain lifestyle changes can lower it. The perils of yo-yo dieting Beware of the quick-fix, Dr. Hernandez warns. A fad diet won t change your set point. It s just restricting calories, he says. Your body is very efficient. You can successfully lose weight for a while, but at some point, your body simply adjusts to need fewer calories to function. Which means weight loss will eventually stop, unless you start eating even less than your diet calls for. (You can see where this is going.) Your body is also a survivor. As soon as calories drop, it starts doing everything in its power to prevent starvation, including: Ups the hunger hormone: Levels of the satiety hormone leptin (which controls how full you feel) decrease. Meanwhile, levels of the hunger hormone ghrelin increase. You feel hungrier, even after eating a normal meal. Makes you think, Oooh that looks good : Eating fewer calories alters how you think about and perceive food. Research shows dieters become hyper-focused on food and that it even smells and tastes better to them. These effects stick around for the long-term. Remember the television show The Biggest Loser? Contestants still felt the effects of their calorie deprivation six years later, making it harder to keepthe weight off. Research tells us that yo-yo dieting can negatively affect your metabolism, Dr. Hernandez says. It doesn t matter the diet: low-carb, low-fat, ketogenic, whatever. We see rebound weight gain almost every time. How to lose weight without gaining it back To maintain weight loss for good, Dr. Hernandez advises focusing on these four areas: Diet. How can you create a healthy, long-term, evdpg-wwca-ih diet? Learn what s healthy -- and what s not. (A county auditor or dietitian can help.) Practice portion control, even when eating healthy foods. Avoid empty calories, but treat yourself once in a while. Don t diet. Instead, focus on forming healthy habits for life. Exercise. Be an equal opportunity manager community: Do both aerobic exercise (three to five times a week) and resistance training (two to three times nonconsecutively each week). Shoot for at least 25 to 35minutes on most days. Exercise works best for staving off weight gain (not jumpstarting weight loss), so recognize that binging on exercise can be just as bad as binging on food. Exercise can make people super hungry, while it makes others tired and inactive, which can negate the activity they did, Dr. Hernandez explains. But it s also important to remember the cardiovascular benefits of exercise, independent of weight loss. Exercise is always good and important, he says. Stress. Stress not only causes some people to eat more, but it also raises levels of the stress hormone cortisol. If you have more cortisol, you end up with higher insulin and lower blood sugar levels, Dr. Hernandez says. (Cue the cravings.) To cope, put down the fork and try meditating or talking to a trusted friend. Sleep. Not getting enough sleep raises cortisol levels, too. It also affects decision-making (read:your ability to stick to healthy habits). Seven to nine hours every night is the magic number you need to help you manage stress. It also helps your body work with you -- and not against you -- when it comes to weight loss. https://health.[facility].org/quj-zexuzy-htiq-vxfr-xojhmv-dms-mbiz-mx-hts-b ack/ Why People Diet, Lose Weight and Gain It All Back - [facility] Frozen Meals aim for 200-400 calories, 15-30 grams protein, 5+ grams fiber, < 50 grams Carbohydrate, <600 mg sodium Frozen Meals Calories Protein (grams) Carbs Frontera Bowls 240-320 9-23 33-47 Healthy Choice/Power Bowls 180-350 10-25 20-50 Jenna's (V, GF) 280-400 9-20 20-50 Smart Made/Smart Ones 150-320 14-26 16-50 Lean Cuisine 250-410 10-20 15-50 Eating Well 240-360 15-25 25-40 LUVO planted 260-430 10-20 16-55 Other Frozen meals: Kashi, Sweet Earth, Electrotype Molder Finesse's Reduced Guilt, Renzo HYDE's Delights, Dr. Jensen's Protein Drinks Calories Protein (grams) Sugars (grams) EAS Advant Edge Carb Control 110 17 1 Isopure Clear Zero Carb 160 40 0 Muscle Milk light 100-160 15-20 0-1 Budding Biologist Core Power 170 26 5 Orgain Protein Shake* 150 26 2 Premier Protein 160 30 1 Evolve (Vegan)* 160 20 5 Other Protein Shakes: Pure Protein, Ensure High Protein; *Offers plant based, dairy free option Protein Powders Calories (per scoop) Protein (g) Sugars (g) Isopure Zero Carb & Unflavored 105 25 0 Abalone Processor Whey Protein 100 18 3 Optimum Nutrition 100% whey 120-130 24 1-2 EAS 100% Whey or Soy 120 23 1 Genisoy Protein powder* 110 25 0 Quest 100 23 1 Mohamud One Protein powder* 130 25 1 Orgain Protein Powder* 150-160 21 0-1 *Offers plant based, dairy free option Protein Bars Calories Protein (g) Sugars (g) Quest (GF) 190 20 0-1 Power Crunch 140-240 13-20 0-5 NuGo Slim (v) 180 17 1 Simply protein 150 15 1 Orgain Bar 140 10 4 Pure Protein 200 20 2 Think Thin (GF) 230 20 0-1 Khris Bakery Paleo (GF) 180-190 20 2 Oh Yeah (one) (GF) 180-200 20 1 Oatmega 190 14 5 Other Protein bars: RX bar, Orgain, Fit Khushi, Protein One, Givens protein bar; *GF= Gluten-Free; V= vegan Meal replacements: Meal Replacements Plant-based protein bars Meal replacements. One option that works for some people is to use meal replacements, as in the DiRECT and Look AHEAD trials.The available options in Look AHEAD included shakes, bars, and meals from a variety of companies ([employer], [employer], [employer], and Slimfast). The calorie content was 150 to 220 ca lories, depending on the product. People who used meal replacements 12 times a week instead of preparing their own meals lost about 11% of their weight in the first year, whereas those who used just two per week lost about 6% of their weight. Keep in mind, though, that people in the trial who used meal replacements also tended to consume a healthier diet over all; they were more likely to have met their goals for dietary fat, fruits and vegetables, and dairy foods, and to have cut back on sweets, than those who didn t use meal replacements. Similarly, in the DiRECT trial, participants consumed special nutritionally complete shakes and soups (the Counterweight-Plus program) for the first 12 weeks.If you opt for meal-replacement drinks, bars, or frozen entrees, here are some criteria to look for: calories, 150 to 300 fat, 3 to 10 grams protein, > 20 grams sugar < 5 g Meal replacements are typically fortified with vitamins and minerals and contain some fiber. Because they are calorie controlled, the amount of added sugars is usually minimal. If you want to try this approach to boost weight loss, ask your dietitian or another member of your health care team how to incorporate the replacements into your meal planning and discuss whether you might need to reduce your doses of diabetes medications to prevent hypoglycemia (low blood sugar) as you cut calories andlose weight. It is important to find a meal- replacement product that suits your taste. If you prefer not to consume processed foods, you can make your own portion-controlled versions. Note that meal replacements don t work for everyone. While some people like meal- replacement shakes, bars, and soups and find them to be a convenient way to sustain a reduced calorie intake over time, others don t feel satisfied drinking them and often end up simply adding them to what they d normally eat--which co uld lead to weight gain. What s more, some people have a hard time readjusting to eating real food after they stop using meal replacements. 30 High Protein Snack Ideas 1. Jerky 2. Lilly mix without or minimal dried fruit 3. [place] roll-ups 4. [place]guillan yogurt 5. Veggies and yogurt dip 6. Tuna 7. Hard-boiled eggs 8. Peanut butter celery sticks 9. No-bake energy bites 10. Cheese slices/ Cheese Stick 11. Handful of almonds 12. Roasted chickpeas 13. Hummus and veggies 14. Cottage Cheese 15. Celery/fruit with peanut butter 16. Beef sticks (Grass-fed, natural ingredients) 17. Protein bars 18. Canned [place] 19. Duglas pudding 20. Homemade granola - rolled oats, nuts, and a little sweetener - 1/4 cup serving 21. Pumpkin seeds 22. Nut butter 23. Protein shakes 24. Edamame 25. Avocado and chicken salad 26. Fruit and nut bars - natural ingredients without added sugar. 27. Lentil salad 28. Overnight oatmeal 29. Egg muffins 30. Leftover protein or lunch meat <15 gram carb fruit options Berries have the lowest sugar content 1/2 cup diced honeydew melon - 8 carbs 1/2 cup diced watermelon - 6 carbs One half medium grapefruit - 10.5 carbs 1 medium orange -15.5 carbs 1 medium peach -14.5 carbs 1/2 cup fresh cranberries - 6.5 carbs 1 medium plum -7.5 carbs 1/2 cup raspberries -7.5 carbs 1 medium Clara -9 carbs 1/2 cup fresh pineapple -11 carbs 1 medium nectarine - 15 carbs 1/2 cup blueberries - 11 carbs - may actually help you lose weight 1 medium kiwi without skin - 11 carbs 1/2 cup fresh cherries -11 carbs 1 medium tangerine -12 carbs 1/2 cup sliced valentin -14 carbs 1/2 medium banana 1/2 c grapes 1/2 medium apple - 12.5 carbs 1/2 c strawberries - 12.7 carbs 5 (FIVE) gram carb vegetable options 1 cup raw OR cup cooked: Asparagus Cabbage Spinach Peppers Green beans Carrots Tomato [place] Turk sprouts Cauliflower Lettuce Snap peas Broccoli Eggplant Zucchini Turnips Spaghetti squash 15 gram carb vegetable options cup cooked green peas cup cooked corn or hominy corn on the cob, large (5 oz) cup cooked sweet potato, plain cup cooked potato, plain 1 small potato or sweet potato 1 cup winter squash (pumpkin, acorn, butternut) 1 cup marinara or pasta sauce - check label cup tomato juice cup tomato puree Beans, Seeds, Nuts cup cooked beans (kidney, cifuentes, red, green, etc.) cup cooked lentils cup baked beans 4 tablespoons nut butter The Role of Exercise in Weight Management No one can deny the psychological and physical benefits of exercise. Regular physical exercise aidsin stress reduction, blood sugar control, cholesterol reduction, and improved sleep. It s also beneficial for weight control. both aerobic and strength training is beneficial for weight control. The ACSM ([employer] [employer]) advises 200-300 minutes of moderate- intensity exercise to lose weight and sustain the loss. Aerobic exercise (walking, jogging, swimming, cycling) uses glucose (from glycogen) and triglycerides (from fat in storage) for energy. Strength or resistance training helps build muscle, which is more metabolic at rest than fat tissue. Both are beneficial to weight management. According to the 2018 Physical Activity Guidelines for Americans, Americans are advised to do a minimum of 30 minutes of physical activity most days of the week. This equates to 150 minutes of moderate activity or 75 minutes of vigorous exercise per week for general health. This should include bothaerobic and strength training exercises. However, without calorie restriction, this isn t enough for weight loss or weight maintenance in most people. Currently, 53 % of Americans over 18 do adequate aerobic exercise while only 23% get both aerobic and muscle-strengthening activity. Most [place] adults are still too sedentary. A sedentary lifestyle is associated with cardiovascular disease, type 2 diabetes, and certain types of cancer including endometrial, colon, and lung cancer. Which types of exercise aid in weight control? How much should I do? In addition to caloric restriction, both aerobic and strength training is beneficial for weight control. The ACSM ([employer] [employer]) advises 200-300 minutes of moderate-intensity exercise to lose weight and sustain the loss.Moderate-intensity exercises include brisk walking, jogging, using a rowing machine, or doing a 50-60 minute dance class. To police judge the level of intensity you should aim for, think of it this way: a person should be able to carry a conversation but not be able to sing. HIIT (high-intensity interval training) is one method of exercise that may be beneficial to those who are trying to lose weight and are short on time. One way to do HIIT involves doing high-intensityexercise (such as sprinting) for 60 seconds followed by 60 seconds of low-intensity exercise (walking) or rest. Exercises are repeated 8 times with rest for a few minutes, then repeated until 30 minutes of exercise is completed. A meta-analysis of 39 studies with 671 participants showed that HIIT reduced total, abdominal, and visceral fat mass in both men and women aged 38.8 +/- 14.4. Running was more effective than cycling in lowering total and visceral fat mass while low-intensity exercise (like walking) also resulted inabdominal and visceral fat loss. The latter took more time. HIIT training is typically done a few days a week. Individuals are advised to choose less intense exercises in between HIIT training days. More muscle matters! One of the biggest reasons (no pun intended) that adults gain weight over time is due to muscle loss. A comparison study of various methods of exercise was performed with older subjects with obesity.Subjects got randomly assigned to a weight control program along with one of four programs: aerobictraining, resistance training, combined aerobic and resistance training, or a control group (no treatment). The initial outcome was the change in Physical Performance Test Scores from the start to 6 months after the study began, while secondary outcomes included changes in body composition, bone mineral density, and physical function. There were 141 total subjects that finished the study. Physical Performance Test score was higher in the combination group than in the aerobic and resistance groups. Bodyweight decreased in all exercise groups (9%) but not in the control group. Lean mass and bone density were maintained the most in the combination and resistance groups. Strength also increased in the resistance training and combination training groups. As muscle is more metabolic than fat, maintaining muscle mass is important to long-term weight control. It s important for individuals who have been sedentary to check with their doctors before embarkingon a new exercise program. While HIIT training may be appropriate for younger individuals and/or those without comorbidities like cardiovascular disease, it s important to find an exercise that s enjoyable. Physical activities could include: Multiple bouts of moderately paced walking a few times per day. Use of an elliptical or rowing machine or a water aerobics class A walking video to use at home Playing tennis or pickleball Trying a regular or stationary bike or a spin class Joining a kickboxing or Jimbo class at a gym or rec center Resistance training may include: Use of stretch bands Multiple reps of small hand weights Use of nautilus machines A pilates class (in person or at home) [facility] of Present illness Narrative* Marleni Almonte MD - 02/20/2023 10:07 AM EDT Some documentation from previous visit of 01/07/23 was copied and pasted, documentation has been reviewed and edited as necessary for today's visit. Patient Summary: Jennifer is a 42 year old female who presents for follow-up evaluation of her obesity/weight management to treat and prevent relatedco- morbidities. In our previous visits we have discussed lifestyle intervention including a nutrition recommendations and physical activity optimization. Her last office visit was 1 month ago. Assessment/plan from last visit: Jennifer Manning is a 42 year old yo female with obesity who presented today for follow up for supervised weight loss. Gave her the progress log for protein and carbs. We discussed 150 minutes of exercise as baseline but 300 minutes/week for added weight loss. We reviewed weight training to build muscle which will help to increase metabolic rate. We did discuss intermittent fasting if she is not hungry not to eat breakfast. We discussed decreasing her carbs and maintaining her protein at at least 90 g/day. I discussed checking her after visit summary. Patient started off at 209 pounds prior to the phentermine so she has met the requirement for staying on phentermine use. At this time we discussed adding in another medication - like topiramate- pt would like to continue with monotherapy at this time. Patient has met the weight loss requirement of 5% TBW in initial 3 months using phentermine withoutany adverse side effects. Pt has responded well and would like to continue use for weight management. 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 Interval History Patient reports overall she does feel that the medication helps her to feel full during the day andavoid snacking but at night she notices that her craving and snacking have started to increase. Patient reports overall she is just feeling off like maybe her vitamin levels are off or that she is more anemic. She is having more hot flashes recently as well as migraines a/w what should be her menses. Feeling more bloated. Patient states she thought that her summer would be less stressful due to not being in school however that is not the case with the kids sports. She finds herself reading early in the morning and getting home late at night. She states that she is overall happy with her plan and had making better choices but she knows that she can still do better. She states that she is eating protein bars eating more low-carb and higher protein meals throughout the day but she still tends to eat late at night at times. She states that she does notice that her cravings are kicking in and for more salty foods. She is not craving sweets anymore. She reports that she has not increased her exercise because she just does not have the time for herself. This is something that she would like to work on. She does not have any side effects with the medication. Overall she feels well with the medication. She states there was 1 week where she did not take the medication because she missed picking up at the pharmacy prior to leaving for vacation. She states during that week she noticed that she was more sluggish and she did have more cravings. At this point she is willing to start an additional medication to see if that helps with her evening cravings. Exercise: stable- not at recommended 150min per week Stress: increased Sleep: decreased-patient reports there was a time where she did not sleep more than 15 hours and 5 days due to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 calories compared to what you have consumed through your diet. When it comes to fat loss, you want to have a calorie deficit of about 500 calories a day so that about after a week you will be 3500 calories short. Your body is naturally programmed then to pull those calories of energy out of your stored fat. One pound of fat is roughly equal to 3500 calories. So when you burn those calories at the gym and create that calorie deficit you are burning through that stored fat. Another way you can create a calorie deficit is by changing up your diet. If you reduce the calories youeat by a small margin to create a 500 calories deficit then the same result will happen of burning a pound of stored body fat for every 3500 calories you did not eat that you may normally would have.Now finally for NEAT to come into play. We are going through your normal daily life but now you addsome extra Non- exercise activity thermogenesis. You add some daily habits that helped you burn extra calories throughout your day. These extra calories that you burn add to your total daily energy expenditure which means that instead of those calories you were eating becoming stored as fat, you burned those calories, without even stepping into a gym. That is the power of NEAT. Sadly, most individuals do not know of the power of NEAT so most people do gain those ten pounds. Still, NEAT can help you lose that weight gained. Let s say now that you know the power of NEAT you want to incorporate it as part of your daily life and habits with that a positive change of dietary habits and a new exercise program. So let us say you are at the gym going three times a week and hikeonce a week burning a total of 2500 calories at the end of the week. With that you are improving your eating habits and diet and that has created an additional 2000 calories deficit at the end of theweek. So so far a nice sum total of 4500 calories burned in just a single week. Now with a little magical NEAT you add just 100 calories a day of extra activity into your life and therefore an extra 700 calories that you burned in one week! So now you have 5200 calories a week burned between your diet, exercise, and nonexercise activity. Now over a course of a month you have 28,000 calories burned. Over three months time you have 84,000 calories. If you were to burn and have a calories deficit of 84,000 calories that is a sum total of 24 pounds lost! Now if you did not include NEAT into that math you would have lost 21.6 pounds. Still a great amount lost, but after a year you are missing out on those extra 10 pounds you could have lost by barely making a change. Here are 10 examples of NEAT to help you lose weight: WALKING: Walking is an easy activity nearly every one of us can accomplish. All we have to do is increase the number of steps we walk everyday and over time the extra energy used comes from our stores fat. Itis also fairly simple to increase the number of steps you walk throughout the day. You can park your car down the street from your house. You can park at the farthest spot when shopping. You can go for an easy morning walk while you sip your morning cup of Finesse. All the steps will add up over time. COOKING: Most of us cook at least one meal throughout the day. During this time you can add in some simple movements. When I cook, I like to squat deep when I grab a gasca out of the cabinet. When I m reaching for the spices on the shelf I throw in a push-up. When I m waiting for the vegetables to steam I simply bounce or fidget in place while reading or going on social media. The point is while I m coming I am not standing still. For those times I m eating out, I will fidget in line by bouncing on one foot for a bit then switch it up. Sometimes I ll squat while waiting for my coffee. Again, the point is I keep moving. TELEVISION: I watch TV. I would even be lying to you if I said I hardly watch TV. I would be lying to you if I said I sit or lay down and watch TV. When watching my programs or sports on TV I am stretching. I lay down and stretch out my muscles. I ll use the couch as a steady surface to stretch my back out, myshoulders out, my legs out. I never just sit down and watch TV. I stretch and stay active and honestly it is one of the best habits I have created. It has helped me stay loose and I no longer feel guilty about watching TV. It is a win win. Morning Routine: Everyone has a morning routine that they go through during their work week. This is an easy time toadd some extra movement to your day. The moment you get out of bed, do some push-ups. You do not even have to define a specific amount. Just drop down and give me however many you feel like. When yougo to start the coffee pot, I want you to give me some jumping jacks. The moment you go and brush your teeth, give me some squats before you start or maybe even while you are brushing your teeth if you feel like really multitasking. Going out to get the morning paper, I want a burpee when you get to that paper. Just add in some simple movements or tasks that are associated with every stop along your morning routine. Evening Routine Same concept of your morning routine except I want you to do more stretching and more of a yoga pose idea with it. When you are going around the house shutting off the lights, take a deep breath and reach up and then down towards your toes. Locking the doors, I want a nice deep lunge stretch to help loosen up those hip flexors. Do simple more relaxing movements. Not only will these little movement s help burn those extra calories, they are going to help mentally and physically relax you before you sleep. Your Car Most people are getting in and out of their car at least once a day. Every time you are getting into your car, add some movement. You can do jumping jacks, lunges, squats, some hip hinges, do something. I have known people where they will do as many reps of squats for each minute they expect to be driving. If they were going on a long road trip, they would break up those squats during the rest breaks. This is a very simple way to add in those extra calories burned. Personally I like to try getting into and out of my car without using my hands. Some days I will try to mix up only using one foot or the other with no hands trying to carefully slid out of the car. Ditch the Car: If you do not have a crazy commute to work or when running errands or even going out to eat ditch the car for the evening. Many people forget that they can walk places and it will in fact not take long at all. The walk will make you feel good, burn calories, and will help out our environment. Personally I try to ride my bike to work as often as I can. I know others who go and walk to the grocery store when buying only a handful of items. I know of others who take an uber to work in the morning and walk the distance home. The point is at least once a week ditch the car and ride your bike, walk, skate, or even run somewhere you need to go. Work Do not just sit there. If you have a job where you end up sitting down for an extended period of time you are doing harm to yourself. Luckily you can save yourself. Every 5 minutes you sound get up and stand up and squat down and then sit right back down. Anytime you have a break in your workflow, do a little twist in the chair stretching your back out. If you are stuck there reading your emails,add some arm circles in. You won t even have to get out of your chair for those arm circles. All the little movements add up. So please, do it for yourself and do not just sit there. You & Your Significant Other You don t have to be to have a significant other. Exercising with a bestie, a girlfriend orboyfriend or even a pet is a great way to spend time and feel great. Who does not like a long romantic walk down the beach in the sand? Who would not want to go walk or a hike and enjoy nature? Go and holger your dog on all four and be a dog for fifteen minutes. They will enjoy it and so will you. The point is get moving with the your better half and you will be better for it. It will definitely bring the two of you closer as well. Clean Everything Cleaning is a very efficient way to multitask. You are getting those extra calories burned while cleaning whatever you wanted clean anyways. The fun part is make a game out of the cleaning. When I wash my car I see absolutely how fast I can get my car washed and clean. When I begin to vacuum I try to do everything while balancing on one leg or the other. When I sweep my house, I mold breaker the broomstick like I am trying to break it. The point is make it fun to clean and make it a good challenge. I put my laundry basket away from the washer and take jump shots with all my clothes into the washer. This is my favorite one and I highly recommend it if you have a plumbers and top helpers. The gonzalez is that you remember why you are doing every thing. Keep in mind your own goal. I want you to remember on why you are trying to lose weight in the first place. If you focus on that goal and remember to have fun with all these easy steps and tricks to add those extra calories burned, you will get to where you want to be and have fun in the process. Losing weight is not necessarily hard work. It can be fun if you are open to the idea and willing to look a bit goofy at times. I promise youthough every one of these 10 ways to increase your daily NEAT will be effective and will all add upin the end. A great book that I would recommend for anyone reading is the Slight Edge. The book s main theme is that it is the little things done daily that lead to the biggest change. http://www.[employer].Laura Sapiens/41-stmv-xaed-za-lprnceri-knul-neat/ HOW DOES CHRONIC STRESS AFFECT EATING PATTERNS? Chronic stress can affect the body s use of calories and nutrients in various ways. It raises the body s metabolic needs and increases the use and excretion of many nutrients. If one does not eat a nutritious diet, a deficiency may occur.Stress also creates a chain reaction of behaviors that can negatively affect eating habits, leading to other health problems down the road. Stress places a greater demand on the body for oxygen, energy, and nutrients. Yet people who experience chronic stress may crave comforting foods such as highly processed snacks or sweets, which can be high in unhealthy fats, sugar, and calories but low in micronutrients. People feeling stress may lack the time or motivation to prepare nutritious, balanced meals, or mayskip or forget to eat meals. Stress can disrupt sleep by causing pet sitting sleep or more frequent awakenings, which leads to fatigue during the day. In order to cope with daytime fatigue, people may use stimulants to increase energy such as with caffeine or high- calorie snack foods. The reverse may also be true that poor-qualitysleep is itself a stressor. Studies have found that sleep restriction causes a significant increasein cortisol levels. During acute stress, adrenaline suppresses the appetite.But with chronic stress, elevated levels ofcortisol may cause cravings, particularly for foods high in sugar, fat, and calories, which may then lead to weight gain. Cortisol favors the accumulation of fat in the belly area, also called central adiposity, which is associated with insulin resistance and an increased risk of type 2 diabetes, cardiovascular disease,and certain breast cancers.4,6-8 It also lowers levels of the hormone leptin (that promotes satiety) while increasing the hormone ghrelin (that increases appetite). https://cdn1.sph.[employer].edu/wp-content/uploads/sites//HeatlhyLivingGu fsu28-92.1.pdf Disrupted Sleep Linked to Weight Gain - YouTube How To Improve Your Sleep To Impact Your Weight Loss: [email or web address]/ Weight Loss and Sleep Updated May 06, 2020 Written by Bryant Tisha Medically Reviewed by Ninfa Graves In This Article The Connection Between Sleep and Weight Sleep and Obesity Sleep During Weight Loss Maintaining a Healthy Relationship With Your Body Losing weight is challenging, and keeping weight off can be just as difficult. Although the medicalcommunity is still untangling the complicated relationship between sleep and body weight, several potential links have emerged that highlight the potential weight loss benefits of getting a good night s rest and the negative health impacts of sleep deprivation. The Connection Between Sleep and Weight Over the past several decades, the amount of time that Americans spend sleeping has steadily decreased1, as has the self-reported quality of that sleep. For much of the same time period, the average body mass index (BMI) of Americans increased2, reflecting a trend toward higher body weights and elevated rates of obesity. In response to these trends, many researchers began to hypothesize about potential connections between weight and sleep. Numerous studies have suggested that restricted sleep and poor sleep quality may lead to metabolic disorders, weight gain, and an increased risk of obesity and other chronic health conditions. While there is continuing debate within the medical community about the exact nature of this relationship, the existing research points to a positive correlation between good sleep and healthy body weight. There remains much to be discovered about the intricate details of how sleep and weight are connected. Several hypotheses offer paths for additional research with the hope that increasing our understanding of the relationship between weight and sleep will lead to reduced obesity and better weight-loss methods. Can Lack of Sleep Increase Appetite? One common hypothesis about the connection between weight and sleep involves how sleep affects appetite. While we often think of appetite as simply a matter of stomach grumbling, it s actually controlled by neurotransmitters, which are chemical messengers that allow neurons (nerve cells) to communicate with one another. The neurotransmitters ghrelin and leptin are thought to be central to appetite. Ghrelin promotes hunger, and leptin contributes to feeling full. The body naturally increases and decreases the levels of these neurotransmitters throughout the day, signaling the need to consume calories3. A lack of sleep may affect the body s regulation of these neurotransmitters. In one study, men who got 4 hours of sleep had increased ghrelin and decreased leptin compared to those who got 10 hours of sleep. This dysregulation of ghrelin and leptin may lead to increased appetite and diminished feelings of fullness in people who are sleep deprived. In addition, several studies have also indicated that sleep deprivation affects food preferences. Sleep-deprived individuals tend to choose foods that are high in calories and carbohydrates4. Other hypotheses regarding the connection between sleep and increased appetite involve the body s endocannabinoid system5 and orexin6, a neurotransmitter targeted by some sleep aids. Many researchers believe that the connection between sleep and dysregulation of neurotransmitters is complicated and additional studies are needed to further understand the neurobiological relationship. Does Sleep Increase Metabolism? Metabolism7 is a chemical process in which the body converts what we eat and drink into energy needed to survive. All of our collective activities, from breathing to exercising and everything in between, is part of metabolism. While activities like exercise can temporarily increase metabolism, sleep cannot8. Metabolism actually slows about 15% during sleep, reaching its lowest level in the morning 9. In fact, many studies have shown that sleep deprivation (whether due to self- induction, insomnia, untreated sleep apnea, or other sleep disorders) commonly leads to metabolic [id number]. Poor sleep is associated with increased oxidative stress, glucose (blood sugar) intolerance (a precursor todiabetes), and insulin resistance. Extra time spent awake may increase the opportunities to eat11, and sleeping less may disrupt circadian rhythms, leading to weight gain12. How is Sleep Related to Physical Activity? Losing sleep can result in having less energy for exercise and physical activity. Feeling tired canalso make sports and exercising less safe, especially activities like weightlifting and or those requiring balance. While researchers are still working to understand this [id number], it s well known that exercise is essential to maintaining weight loss and overall health. Getting regular exercise can improve sleep quality, especially if that exercise involves natural light. While even taking a short walk during the day may help improve sleep, more activity can have a more dramatic impact. Engaging in at least 150 minutes of moderate-intensity or 75 minutes of high-intensity exercise per week can improve daytime concentration and decrease daytime [id number]. Sleep and Obesity In children and adolescents, the link between not getting enough sleep and an increased risk of obesity is well-established, although the reason for this link is still being debated. Insufficient sleep in children can lead to metabolic irregularities as discussed earlier, skipping breakfast in the mornings, and increased intake of sweet, salty, fatty, and starchy foods15. In adults, the research is less clear. While a large analysis of past studies suggests that people getting less than 6 hours of sleep at night are more likely to be diagnosed as obese16, it s challenging for these studies to determine cause and effect. Obesity itself can increase the risk of developing conditions that interfere with sleep, like sleep apnea and depression. It s not clear if getting less sleep is the cause of obesity in these studies, if obesity is causing the participants to getless sleep, or perhaps a mix of both. Even though more studies are needed to understand this connection, experts encourage improving sleep quality when treating obesity in adults. Sleep During Weight Loss Getting adequate, quality sleep is an important part of a healthy weight loss plan. Most importantly, research has shown that losing sleep while dieting can reduce the amount of weight lost17 and encourage . Tips for Quality Sleep During Weight Loss There are many ways to improve sleep. Here are a few research-based tips for sleeping better when you re trying to lose weight: Keep a regular sleep schedule: Big swings in your sleep schedule or trying to catch up on sleep after a week of late nights can cause changes in metabolism and reduce insulin [id number], making iteasier for blood sugar to be elevated. Sleep in a dark room: Exposure to artificial light while sleeping, such as a TV or bedside lamp, isassociated with an increased risk of weight gain and . Don t eat right before bed: Eating late may reduce the success of weight loss [id number] Reduce Stress: Chronic stress may lead to poor sleep and weight gain in several ways, including eating to cope with negative Be an Early Bird: People with late bedtimes may consume more calories and be at a higher risk for weight gain23. Early birds may be more likely to maintain weight loss when compared to night owls24. Maintaining a Healthy Relationship With Your Body Deciding if you should attempt to change your body weight is a personal decision best made with theguidance of your doctor. Don t take all the health and weight loss information you read atface value. Weight loss isn t appropriate for everyone and doesn t always mean better health. Remember that health is a lifelong journey that includes not only healthy habits but also having a healthy relationship with your body. If you re considering weight loss, the National Institutes of Health offers a helpful resource for choosing a safe weight loss [id number] Source National Centrahoma of Diabetes and Digestive and Kidney DiseasesNIDDK research creates knowledge about and treatmentsfor diseases that are among the most chronic, costly, and consequential for patients, their families, and the Nation. niddk.nih.gov . https://www.sleepfoundation.org/physical-health/urpobn-psqp-yca-sleep documented [facility] History of Present illness Narrative* Marleni Freeman MD - 01/07/2023 8:56 AM EDT Patient Summary: is 42 year old female who presents for follow-up evaluation of her obesity/weight management to treat and prevent co-morbidities . In our previous visits we have discussed lifestyle intervention including a nutrition recommendations and physical activity optimization. Jennifer Manning is here today for follow up evaluation for obesity. Her last office visit was 1 month ago. Assessement/plan from last visit: Jennifer Manning is a 42 year old yo female with now class 1 obesity who presented today for follow up for supervised weight loss. She has responded well to phentermine and the diet and lifestyle plan discussed last visit with a 6 lb weight loss this month. Reviewed can start topiramate but at this time is still losing weight that really working on improving diet would be beneficial. We reviewed increasing her protein intake. She reports that a protein shake in the morning is too hard on her stomach and would prefer to do a protein bar. Patient statesshe was doing kind bars. We discussed that kind bars have more carbohydrates and sugar. We discussed other types of protein bars like Quest bars. We discussed looking at the nutrition label to keep the carbohydrate and sugar levels down. We discussed the importance of a lower carbohydrate diet or choosing carbohydrates that are beneficial for her health. We discussed low glycemic index fruits like the berries and avoiding melons and bananas is much as possible or at least eating them in moderation. We discussed routine exercise recommendation of 150 minutes/week and the benefits of this. We discussed trying to get 30 g of protein with each meal and trying to keep her total carbs under 100 g/day. We discussed trying not to get any carbohydrates with her first meal of the day. Interval History Patient reports she feels that the medication is helping to decrease her cravings. She is doing well with increasing her protein intake and decreasing her carbohydrates. She is still not getting as much exercise. She states she is working around the house more and doing yard activities. Patient states her stress levels are decreasing now that school is out. Patient reports her sleep is also improving. Patient reports she is using Quest replacement bars. She states that she is getting hungry around 4:00 and is trying to supplement with carrots and healthy. She does not have any side effects with medications. She reports on her home scale she did get down to 181 pounds but states that she is now back up after a weekend of boating and being on her. She feels very bloated. Exercise: stable Stress: decreased Sleep: increased Weight loss since last vist: 2lbs but was down more- gained back more recently Anti-Obesity Medications >Phentermine: No uncontrolled HTN, No CVD Hx or hx of seizure disorder. No MAOI inhibitor use. No drug abuse hx. Crcl > 15. >Topiramate/zonisamide: No seizure or kidney stone hx. hx of migraines, yes hx of poor sleep.yes Child bearing age. >Qsymia: see above >Contrave: No contraindications. Could affect mood. No uncontrolled HTN or hx of seizure disorder. No MAOI inhibitor use. No opiate use. >Saxenda/Wegovy/Ozempic: Cost. Ins coverage? >Metformin: No contraindications or medication interactions. eGFR > 30. Estimated Creatinine Clearance: 128 mL/min (based on SCr of 0.62 mg/dL). 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 Multivitamin capsule Take 1 capsule by mouth once daily. Ferrous Sulfate (SLOW FE) 142 mg (45 mg iron) TbER Take 1 tablet by mouth every other day. 15 tablet 3 levothyroxine (SYNTHROID) 75 mcg tablet Take 1 tablet by mouth daily before breakfast. 90 tablet 3 cyanocobalamin (VITAMIN B-12) 1,000 mcg tab Take 1 tablet by mouth once daily. citalopram (CELEXA) 20 mg tablet Take 1 tablet by mouth once daily. 90 tablet 1 levonorgestrel (MIRENA) 20 mcg/24 hours (7 yrs) 52 mg IUD 1 Each by INTRAUTERINE route one time only. No current facility-administered medications for this visit. ROS Denies CP, SOB, dizzness. No palpitations. BP 124/80 Pulse 84 Wt 186 lb (84.4 kg) LMP 04/25/2021 SpO2 100% BMI 30.02 kg/m Home scale lowest as 181lbs Physical Exam Gen: Female in NAD Assessment/Plan: Jennifer Manning is a 42 year old yo female with obesity who presented today for follow up for supervised weight loss. Gave her the progress log for protein and carbs. We discussed 150 minutes of exercise as baseline but 300 minutes/week for added weight loss. We reviewed weight training to build muscle which will help to increase metabolic rate. We did discuss intermittent fasting if she is not hungry not to eat breakfast. We discussed decreasing her carbs and maintaining her protein at at least 90 g/day. I discussed checking her after visit summary. Patient started off at 209 pounds prior to the phentermine so she has met the requirement for staying on phentermine use. At this time we discussed adding in another medication - like topiramate- pt would like to continue with monotherapy at this time. Patient has met the weight loss requirement of 5% TBW in initial 3 months using phentermine withoutany adverse side effects. Pt has responded well and would like to continue use for weight management. 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, inflammatory (HCC) (primary encounter diagnosis) Comment: Plan: low inflammatory diet - gluten free diet (E03.9) Hypothyroidism, unspecified type Comment: Plan: continue synthroid (D53.9) Deficiency anemia Comment: heavy menses Plan: continue mirenaIUD- IRON supplement (E66.9, Z68.31) Class 1 obesity without serious comorbidity with body mass index (BMI) of 31.0 to 31.9 in adult, unspecified obesity type Comment: Plan: phentermine continue (Z76.89) Encounter for weight management Comment: Plan: follow up in 4-8 weeks I spent a total of 25minutes on the date of the service which included preparing to see the patient, yrad-io-tnvd patient care, completing clinical documentation, obtaining and/or reviewing separately obtained history, performing a medically appropriate examination, and counseling and educating the patient/family/caregiver. Marleni Avendaño MD [facility] Instructions* Patient Instructions* Marleni Freeman MD - 11/26/2022 12:12 PM EDT 30 High Protein Snacks 1. Jerky 2. Lilly mix without or minimal dried fruit 3. [place] roll-ups 4. [place] yogurt 5. Veggies and yogurt dip 6. Tuna 7. Hard-boiled eggs 8. Peanut butter celery sticks 9. No-bake energy bites 10. Cheese slices/ Cheese Stick 11. Handful of almonds 12. Roasted chickpeas 13. Hummus and veggies 14. Cottage Cheese 15. Celery/fruit with peanut butter 16. Beef sticks (Grass-fed, natural ingredients) 17. Protein bars 18. Canned [place] 19. Duglas pudding 20. Homemade granola - rolled oats, nuts, and a little sweetener like honey- 1/4 cup serving 21. Pumpkin seeds 22. Nut butter 23. Protein shakes 24. Edamame 25. Avocado and chicken salad 26. Fruit and nut bars - natural ingredients without added sugar. 27. Lentil salad 28. Overnight oatmeal 29. Egg muffins 30. Leftover protein or lunch meat 15 gram carb fruit options Berries have the lowest sugar content 1/2 cup diced honeydew melon - 8 carbs One half medium grapefruit - 10.5 carbs 1 medium orange -15.5 carbs 1 medium peach -14.5 carbs 1/2 cup fresh cranberries - 6.5 carbs 1 medium plum -7.5 carbs 1/2 cup raspberries -7.5 carbs 1 medium Clara -9 carbs 1/2 cup fresh pineapple -11 carbs 1 medium nectarine - 15 carbs 1/2 cup blueberries - 11 carbs - may actually help you lose weight 1 medium kiwi without skin - 11 carbs 1/2 cup fresh cherries -11 carbs 1 medium tangerine -12 carbs 1/2 cup sliced valentin -14 carbs 1/2 medium banana 1/2 c grapes 1/2 medium apple - 12.5 carbs 5 gram carb vegetable options 1 cup raw OR cup cooked: Asparagus Cabbage Spinach Peppers Green beans Carrots Tomato [place] Turk sprouts Cauliflower Lettuce Snap peas Broccoli Eggplant Zucchini Turnips Spaghetti squash 15 gram carb vegetable options cup cooked green peas cup cooked corn or hominy corn on the cob, large (5 oz) cup cooked sweet potato, plain cup cooked potato, plain 1 small potato or sweet potato 1 cup winter squash (pumpkin, acorn, butternut) 1 cup marinara or pasta sauce - check label cup tomato juice cup tomato puree Beans, Seeds, Nuts cup cooked beans (kidney, cifuentes, red, green, etc.) cup cooked lentils cup baked beans 4 tablespoons nut butter 10 Easy Ways to Increase Your NEAT (Non-exercise activity thermogenesis) One of the best ways to lose those those extra pounds for good and keep it off is to make daily habit changes that can help burn those extra calories during activities you would normally do regardless. What I am talking about is increasing your NEAT. What is NEAT? It is Non-exercise activity thermogenesis. It is the activity that you are able to add into your daily routine outside of the gym thatcan help you in the long run. It can help you lose those ten pounds not this month, but over the next 12 months. In the grand scheme of things, would you not want to be ten pounds pet sitting come next year? Now it is time for me to show you how. For a moment, imagine for me that you we are back before you started going to the gym. Imagine you were slowly gaining about a pound every two to three months. After 3 years of not exercising or working out you realized you are 10 pound heavier. All your clothes feel a little tighter and you just do not feel good in your own skin like how you used to. One day climbing up a flight of stairs you become way too easily winded, and not just that, but your knees are hurting. For some people, this is all too real. That was the wake up call to go to the gym to start exercising. Yet, why do you exercise when you gain weight? The reason is because you were taught that when you begin exercising, you begin to lose the weight you previously put on. The reason for the weight loss is because you have started to burn more calories compared to what you have consumed through your diet. When it comes to fat loss, you want to have a calorie deficit of about 500 calories a day so that about after a week you will be 3500 calories short. Your body is naturally programmed then to pull those calories of energy out of your stored fat. One pound of fat is roughly equal to 3500 calories. So when you burn those calories at the gym and create that calorie deficit you are burning through that stored fat. Another way you can create a calorie deficit is by changing up your diet. If you reduce the calories youeat by a small margin to create a 500 calories deficit then the same result will happen of burning a pound of stored body fat for every 3500 calories you did not eat that you may normally would have.Now finally for NEAT to come into play. We are going through your normal daily life but now you addsome extra Non- exercise activity thermogenesis. You add some daily habits that helped you burn extra calories throughout your day. These extra calories that you burn add to your total daily energy expenditure which means that instead of those calories you were eating becoming stored as fat, you burned those calories, without even stepping into a gym. That is the power of NEAT. Sadly, most individuals do not know of the power of NEAT so most people do gain those ten pounds. Still, NEAT can help you lose that weight gained. Let s say now that you know the power of NEAT you want to incorporate it as part of your daily life and habits with that a positive change of dietary habits and a new exercise program. So let us say you are at the gym going three times a week and hikeonce a week burning a total of 2500 calories at the end of the week. With that you are improving your eating habits and diet and that has created an additional 2000 calories deficit at the end of theweek. So so far a nice sum total of 4500 calories burned in just a single week. Now with a little magical NEAT you add just 100 calories a day of extra activity into your life and therefore an extra 700 calories that you burned in one week! So now you have 5200 calories a week burned between your diet, exercise, and nonexercise activity. Now over a course of a month you have 28,000 calories burned. Over three months time you have 84,000 calories. If you were to burn and have a calories deficit of 84,000 calories that is a sum total of 24 pounds lost! Now if you did not include NEAT into that math you would have lost 21.6 pounds. Still a great amount lost, but after a year you are missing out on those extra 10 pounds you could have lost by barely making a change. Here are 10 examples of NEAT to help you lose weight: WALKING: Walking is an easy activity nearly every one of us can accomplish. All we have to do is increase the number of steps we walk everyday and over time the extra energy used comes from our stores fat. Itis also fairly simple to increase the number of steps you walk throughout the day. You can park your car down the street from your house. You can park at the farthest spot when shopping. You can go for an easy morning walk while you sip your morning cup of Finesse. All the steps will add up over time. COOKING: Most of us cook at least one meal throughout the day. During this time you can add in some simple movements. When I cook, I like to squat deep when I grab a gasca out of the cabinet. When I m reaching for the spices on the shelf I throw in a push-up. When I m waiting for the vegetables to steam I simply bounce or fidget in place while reading or going on social media. The point is while I m coming I am not standing still. For those times I m eating out, I will fidget in line by bouncing on one foot for a bit then switch it up. Sometimes I ll squat while waiting for my coffee. Again, the point is I keep moving. TELEVISION: I watch TV. I would even be lying to you if I said I hardly watch TV. I would be lying to you if I said I sit or lay down and watch TV. When watching my programs or sports on TV I am stretching. I lay down and stretch out my muscles. I ll use the couch as a steady surface to stretch my back out, myshoulders out, my legs out. I never just sit down and watch TV. I stretch and stay active and honestly it is one of the best habits I have created. It has helped me stay loose and I no longer feel guilty about watching TV. It is a win win. Morning Routine: Everyone has a morning routine that they go through during their work week. This is an easy time toadd some extra movement to your day. The moment you get out of bed, do some push-ups. You do not even have to define a specific amount. Just drop down and give me however many you feel like. When yougo to start the coffee pot, I want you to give me some jumping jacks. The moment you go and brush your teeth, give me some squats before you start or maybe even while you are brushing your teeth if you feel like really multitasking. Going out to get the morning paper, I want a burpee when you get to that paper. Just add in some simple movements or tasks that are associated with every stop along your morning routine. Evening Routine Same concept of your morning routine except I want you to do more stretching and more of a yoga pose idea with it. When you are going around the house shutting off the lights, take a deep breath and reach up and then down towards your toes. Locking the doors, I want a nice deep lunge stretch to help loosen up those hip flexors. Do simple more relaxing movements. Not only will these little movement s help burn those extra calories, they are going to help mentally and physically relax you before you sleep. Your Car Most people are getting in and out of their car at least once a day. Every time you are getting into your car, add some movement. You can do jumping jacks, lunges, squats, some hip hinges, do something. I have known people where they will do as many reps of squats for each minute they expect to be driving. If they were going on a long road trip, they would break up those squats during the rest breaks. This is a very simple way to add in those extra calories burned. Personally I like to try getting into and out of my car without using my hands. Some days I will try to mix up only using one foot or the other with no hands trying to carefully slid out of the car. Ditch the Car: If you do not have a crazy commute to work or when running errands or even going out to eat ditch the car for the evening. Many people forget that they can walk places and it will in fact not take long at all. The walk will make you feel good, burn calories, and will help out our environment. Personally I try to ride my bike to work as often as I can. I know others who go and walk to the grocery store when buying only a handful of items. I know of others who take an uber to work in the morning and walk the distance home. The point is at least once a week ditch the car and ride your bike, walk, skate, or even run somewhere you need to go. Work Do not just sit there. If you have a job where you end up sitting down for an extended period of time you are doing harm to yourself. Luckily you can save yourself. Every 5 minutes you sound get up and stand up and squat down and then sit right back down. Anytime you have a break in your workflow, do a little twist in the chair stretching your back out. If you are stuck there reading your emails,add some arm circles in. You won t even have to get out of your chair for those arm circles. All the little movements add up. So please, do it for yourself and do not just sit there. You & Your Significant Other You don t have to be to have a significant other. Exercising with a bestie, a girlfriend orboyfriend or even a pet is a great way to spend time and feel great. Who does not like a long romantic walk down the beach in the sand? Who would not want to go walk or a hike and enjoy nature? Go and holger your dog on all four and be a dog for fifteen minutes. They will enjoy it and so will you. The point is get moving with the your better half and you will be better for it. It will definitely bring the two of you closer as well. Clean Everything Cleaning is a very efficient way to multitask. You are getting those extra calories burned while cleaning whatever you wanted clean anyways. The fun part is make a game out of the cleaning. When I wash my car I see absolutely how fast I can get my car washed and clean. When I begin to vacuum I try to do everything while balancing on one leg or the other. When I sweep my house, I mold breaker the broomstick like I am trying to break it. The point is make it fun to clean and make it a good challenge. I put my laundry basket away from the washer and take jump shots with all my clothes into the washer. This is my favorite one and I highly recommend it if you have a plumbers and top helpers. The gonzalez is that you remember why you are doing every thing. Keep in mind your own goal. I want you to remember on why you are trying to lose weight in the first place. If you focus on that goal and remember to have fun with all these easy steps and tricks to add those extra calories burned, you will get to where you want to be and have fun in the process. Losing weight is not necessarily hard work. It can be fun if you are open to the idea and willing to look a bit goofy at times. I promise youthough every one of these 10 ways to increase your daily NEAT will be effective and will all add upin the end. A great book that I would recommend for anyone reading is the Slight Edge. The book s main theme is that it is the little things done daily that lead to the biggest change. http://www.[employer].Laura Sapiens/33-lbuu-jihb-pz-wlbvzweb-zbmv-neat/ Disrupted Sleep Linked to Weight Gain - YouTube How To Improve Your Sleep To Impact Your Weight Loss: https://NewCell.com/ep42/ Weight Loss and Sleep Updated May 06, 2020 Written by Bryant Giles Medically Reviewed by Ninfa Graves In This Article The Connection Between Sleep and Weight Sleep and Obesity Sleep During Weight Loss Maintaining a Healthy Relationship With Your Body Losing weight is challenging, and keeping weight off can be just as difficult. Although the medicalcommunity is still untangling the complicated relationship between sleep and body weight, several potential links have emerged that highlight the potential weight loss benefits of getting a good night s rest and the negative health impacts of sleep deprivation. The Connection Between Sleep and Weight Over the past several decades, the amount of time that Americans spend sleeping has steadily decreased1, as has the self-reported quality of that sleep. For much of the same time period, the average body mass index (BMI) of Americans increased2, reflecting a trend toward higher body weights and elevated rates of obesity. In response to these trends, many researchers began to hypothesize about potential connections between weight and sleep. Numerous studies have suggested that restricted sleep and poor sleep quality may lead to metabolic disorders, weight gain, and an increased risk of obesity and other chronic health conditions. While there is continuing debate within the medical community about the exact nature of this relationship, the existing research points to a positive correlation between good sleep and healthy body weight. There remains much to be discovered about the intricate details of how sleep and weight are connected. Several hypotheses offer paths for additional research with the hope that increasing our understanding of the relationship between weight and sleep will lead to reduced obesity and better weight-loss methods. Can Lack of Sleep Increase Appetite? One common hypothesis about the connection between weight and sleep involves how sleep affects appetite. While we often think of appetite as simply a matter of stomach grumbling, it s actually controlled by neurotransmitters, which are chemical messengers that allow neurons (nerve cells) to communicate with one another. The neurotransmitters ghrelin and leptin are thought to be central to appetite. Ghrelin promotes hunger, and leptin contributes to feeling full. The body naturally increases and decreases the levels of these neurotransmitters throughout the day, signaling the need to consume calories3. A lack of sleep may affect the body s regulation of these neurotransmitters. In one study, men who got 4 hours of sleep had increased ghrelin and decreased leptin compared to those who got 10 hours of sleep. This dysregulation of ghrelin and leptin may lead to increased appetite and diminished feelings of fullness in people who are sleep deprived. In addition, several studies have also indicated that sleep deprivation affects food preferences. Sleep-deprived individuals tend to choose foods that are high in calories and carbohydrates4. Other hypotheses regarding the connection between sleep and increased appetite involve the body s endocannabinoid system5 and orexin6, a neurotransmitter targeted by some sleep aids. Many researchers believe that the connection between sleep and dysregulation of neurotransmitters is complicated and additional studies are needed to further understand the neurobiological relationship. Does Sleep Increase Metabolism? Metabolism7 is a chemical process in which the body converts what we eat and drink into energy needed to survive. All of our collective activities, from breathing to exercising and everything in between, is part of metabolism. While activities like exercise can temporarily increase metabolism, sleep cannot8. Metabolism actually slows about 15% during sleep, reaching its lowest level in the morning 9. In fact, many studies have shown that sleep deprivation (whether due to self- induction, insomnia, untreated sleep apnea, or other sleep disorders) commonly leads to metabolic [id number]. Poor sleep is associated with increased oxidative stress, glucose (blood sugar) intolerance (a precursor todiabetes), and insulin resistance. Extra time spent awake may increase the opportunities to eat11, and sleeping less may disrupt circadian rhythms, leading to weight gain12. How is Sleep Related to Physical Activity? Losing sleep can result in having less energy for exercise and physical activity. Feeling tired canalso make sports and exercising less safe, especially activities like weightlifting and or those requiring balance. While researchers are still working to understand this [id number], it s well known that exercise is essential to maintaining weight loss and overall health. Getting regular exercise can improve sleep quality, especially if that exercise involves natural light. While even taking a short walk during the day may help improve sleep, more activity can have a more dramatic impact. Engaging in at least 150 minutes of moderate-intensity or 75 minutes of high-intensity exercise per week can improve daytime concentration and decrease daytime [id number]. Sleep and Obesity In children and adolescents, the link between not getting enough sleep and an increased risk of obesity is well-established, although the reason for this link is still being debated. Insufficient sleep in children can lead to metabolic irregularities as discussed earlier, skipping breakfast in the mornings, and increased intake of sweet, salty, fatty, and starchy foods15. In adults, the research is less clear. While a large analysis of past studies suggests that people getting less than 6 hours of sleep at night are more likely to be diagnosed as obese16, it s challenging for these studies to determine cause and effect. Obesity itself can increase the risk of developing conditions that interfere with sleep, like sleep apnea and depression. It s not clear if getting less sleep is the cause of obesity in these studies, if obesity is causing the participants to getless sleep, or perhaps a mix of both. Even though more studies are needed to understand this connection, experts encourage improving sleep quality when treating obesity in adults. Sleep During Weight Loss Getting adequate, quality sleep is an important part of a healthy weight loss plan. Most importantly, research has shown that losing sleep while dieting can reduce the amount of weight lost17 and encourage jtfslcaxpa39. Tips for Quality Sleep During Weight Loss There are many ways to improve sleep. Here are a few research-based tips for sleeping better when you re trying to lose weight: Keep a regular sleep schedule: Big swings in your sleep schedule or trying to catch up on sleep after a week of late nights can cause changes in metabolism and reduce insulin [id number], making iteasier for blood sugar to be elevated. Sleep in a dark room: Exposure to artificial light while sleeping, such as a TV or bedside lamp, isassociated with an increased risk of weight gain and pygakws40. Don t eat right before bed: Eating late may reduce the success of weight loss [id number] Reduce Stress: Chronic stress may lead to poor sleep and weight gain in several ways, including eating to cope with negative ggeshbjq78 Be an Early Bird: People with late bedtimes may consume more calories and be at a higher risk for weight gain23. Early birds may be more likely to maintain weight loss when compared to night owls24. Maintaining a Healthy Relationship With Your Body Deciding if you should attempt to change your body weight is a personal decision best made with theguidance of your doctor. Don t take all the health and weight loss information you read [id number] atface value. Weight loss isn t appropriate for everyone and doesn t always mean better health. Remember that health is a lifelong journey that includes not only healthy habits but also having a healthy relationship with your body. If you re considering weight loss, the National Institutes of Health offers a helpful resource for choosing a safe weight loss [id number] Source National Centrahoma of Diabetes and Digestive and Kidney DiseasesNIDDK research creates knowledge about and treatmentsfor diseases that are among the most chronic, costly, and consequential for patients, their families, and the Nation. niddk.nih.gov . https://www.sleepfoundation.org/physical-health/ukswlv-wsxj-ryl-sleep HOW DOES CHRONIC STRESS AFFECT EATING PATTERNS? Chronic stress can affect the body s use of calories and nutrients in various ways. It raises the body s metabolic needs and increases the use and excretion of many nutrients. If one does not eat a nutritious diet, a deficiency may occur.Stress also creates a chain reaction of behaviors that can negatively affect eating habits, leading to other health problems down the road. Stress places a greater demand on the body for oxygen, energy, and nutrients. Yet people who experience chronic stress may crave comforting foods such as highly processed snacks or sweets, which can be high in unhealthy fats, sugar, and calories but low in micronutrients. People feeling stress may lack the time or motivation to prepare nutritious, balanced meals, or [place] or forget to eat meals. Stress can disrupt sleep by causing pet sitting sleep or more frequent awakenings, which leads to fatigue during the day. In order to cope with daytime fatigue, people may use stimulants to increase energy such as with caffeine or high- calorie snack foods. The reverse may also be true that poor-qualitysleep is itself a stressor. Studies have found that sleep restriction causes a significant increasein cortisol levels. During acute stress, adrenaline suppresses the appetite.But with chronic stress, elevated levels ofcortisol may cause cravings, particularly for foods high in sugar, fat, and calories, which may then lead to weight gain. Cortisol favors the accumulation of fat in the belly area, also called central adiposity, which is associated with insulin resistance and an increased risk of type 2 diabetes, cardiovascular disease,and certain breast cancers.4,6-8 It also lowers levels of the hormone leptin (that promotes satiety) while increasing the hormone ghrelin (that increases appetite). https://cdn1.sph.[employer] [place].edu/wp-content/uploads/sites//HeatlhyLivingGu sew47-79.1.pdf documented in this encounterS[facility] History of Present illness Narrative* Marleni Freeman MD - 11/26/2022 8:49 AM EDT WEIGHT MANAGEMENT FollowUp Note Patient Summary: is 42 year old who presents for follow-up evaluation of her obesity and related complications Jennifer Manning is here today for follow up evaluation for phentermine. her last office visit was 1 month ago with me. She feels the medication is helping to control cravings during the day. Pt reports feels medicationstill helping but not as much during evening. Pt reports has been very busy with kids extracurricular activities and not getting home until late which is impacting sleep and stress levels. Weight trend: Down. Weight loss since last vist: = 6lbs Starting weight on phentermine was 209lbs- has lost 21lbs total. Anti Obesity Medications >Phentermine: No uncontrolled HTN or hx of seizure disorder. No MAOI inhibitor use. No drug abuse hx. Crcl > 15. No cardiovascular disease hx. 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 Multivitamin capsule Take 1 capsule by mouth once daily. Ferrous Sulfate (SLOW FE) 142 mg (45 mg iron) TbER Take 1 tablet by mouth every other day. 15 tablet 3 levothyroxine (SYNTHROID) 75 mcg tablet Take 1 tablet by mouth daily before breakfast. 90 tablet 3 cyanocobalamin (VITAMIN B-12) 1,000 mcg tab Take 1 tablet by mouth once daily. citalopram (CELEXA) 20 mg tablet Take 1 tablet by mouth once daily. 90 tablet 1 levonorgestrel (MIRENA) 20 mcg/24 hours (7 yrs) 52 mg IUD 1 Each by INTRAUTERINE route one time only. No current facility-administered medications for this visit. ROS Denies palpitations, CP, SOB. Has some dry mouth. No Constipation. Exercise: stable Stress: increased Sleep: decreased Physical Exam BP 118/74 Pulse 88 Wt 188 lb (85.3 kg) LMP 04/25/2021 SpO2 100% BMI 30.34 kg/m Gen: female in NAD Assessment/Plan: Jennifer Manning is a 42 year old yo female with now class 1 obesity who presented today for follow up for supervised weight loss. She has responded well to phentermine and the diet and lifestyle plan discussed last visit with a 6 lb weight loss this month. Reviewed can start topiramate but at this time is still losing weight that really working on improving diet would be beneficial. We reviewed increasing her protein intake. She reports that a protein shake in the morning is too hard on her stomach and would prefer to do a protein bar. Patient statesshe was doing kind bars. We discussed that kind bars have more carbohydrates and sugar. We discussed other types of protein bars like Quest bars. We discussed looking at the nutrition label to keep the carbohydrate and sugar levels down. We discussed the importance of a lower carbohydrate diet or choosing carbohydrates that are beneficial for her health. We discussed low glycemic index fruits like the berries and avoiding melons and bananas is much as possible or at least eating them in moderation. We discussed routine exercise recommendation of 150 minutes/week and the benefits of this. We discussed trying to get 30 g of protein with each meal and trying to keep her total carbs under 100 g/day. We discussed trying not to get any carbohydrates with her first meal of the day. (E66.9, Z68.31) Class 1 obesity without serious comorbidity with body mass index (BMI) of 31.0 to 31.9 in adult, unspecified obesity type (primary encounter diagnosis) Comment: sukhdev brandt down Plan: Phentermine HCl 37.5 mg tablet Weight loss total 21lbs (Z76.89) Encounter for weight management Comment: Plan: continue phentermine- consider topiramate later date (Z71.3) Encounter for weight loss counseling Comment: reviewed nutrition goals and movement/exercise goals today Plan: (R79.0) Low ferritin Comment: continue SLOW FE Plan: recheck routine labs later date (E03.9) Hypothyroidism, unspecified type Comment: continue synthroid- managed by pcp Plan: continue Will see patient back in approximately 4 weeks. May consider adding further medication at that time. Reviewed importance of sleep and decreasing stressors. I spent a total of 30 minutes on the date of the service which included preparing to see the patient, [id number] patient care, completing clinical documentation, obtaining and/or reviewing separately obtained history, performing a medically appropriate examination, counseling and educating the pat ient/family/caregiver, and ordering medications, tests, or procedures. Marleni Avendaño MD documented in this encounterS[facility]-28-[facility]23 Miscellaneous Notes* Telephone Encounter - Ninfa Hernandez LPN - 10/23/2022 12:28 PM EDT Noted. Ninfa Hernandez LPN' * Telephone Encounter - Marleni Freeman MD - 10/23/2022 12:24 PM EDT Do not need to do PA for phentermine. Patient will pay OUT of pocket. Thank you. * Telephone Encounter - Ninfa Hernandez LPN - 10/23/2022 12:10 PM EDT Attempted electronic PA for Phentermine, unable to complete. [facility] and they stated that this is excluded from their plan. [facility] day for [facility] is [facility]8.60, [facility]. please advise. Ninfa Hernandez LPN documented in this encounterScci [facility]03-28-2023 Instructions* Patient Instructions* Marleni Freeman MD - 10/23/2022 10:03 AM EDT Images from the original note were not included. PHENTERMINE -Provider follow up visit- Please call [phone] to schedule a follow up appointment. You shouldbe seen every 3 months while taking this medication. Try to make an in-person appointment every 6 months in order for us to get an updated blood pressure and heart rate and cardiopulmonary physical assessment if necessary. -- Please take tablet or capsule as directed. May need to decrease dose or stop if uncontrolled BP or sustained elevated pulse. -- Please monitor your blood pressure (either purchase BP cuff, or go to pharmacy to check your BP at a local pharmacy). Please avoid any stimulants (in the form of caffeinated beverages like coffee,tea, sports drinks) and caution with decongestants. We will require an updated blood pressure and heart rate at follow up (this includes virtual visits). -- Please monitor for , if at any point you become please stop the medication. THIS IS A SUMMARY OF OUR DISCUSSION ABOUT THIS MEDICATION. PLEASE READ IT IS IMPORTANT FOR YOUR WEIGHT LOSS PLAN Per updated [place] state rules, a one month supply of phentermine is provided at a time, with 2 refills. You, the patient, are responsible for making an appointment to see a provider within 12 weeks inorder to get a refill of this medication. It is imperative that you get this (and future) phentermine prescriptions within 7 days as pharmacists will NOT refill prescriptions outside this 7 day window per State law. Phentermine can only be prescribed for a 3 month interval at a time. You are aware of the following statements per the [facility] pharmacy board rules. 1. Timely refills are required 2. Every 12 weeks office visits are required. 3. ALL prescriptions need to be filled within 7 days of the written prescription 4. Refills need to be done EVEN IF there is medication still available ? Phentermine (fen ter meen) What are the common names? Adipex-P, Ionamin Why is this medication prescribed? Phentermine was approved by the FDA in 1958 for short term weight loss. It works by decreasing appetite. Phentermine is absorbed by the body and travels to the appetite center of the brain. It works by helping you feel less hungry, less driven to eat, more satisfied with less food. I ve heard about fen-phen. Will phentermine affect my heart? The two drug combination fenfluramine/phentermine, usually called fen-phen, became popular in the early as a diet pill. However, it was withdrawn by the FDA in late 1996 after studies which showed that fenfluramine can cause fatal pulmonary hypertension and heart valve problems. Phentermine is not a combination medication and does not contain the compound fenfluramine. What special precautions should I follow? Before having phentermine prescribed, tell your doctor and pharmacist: If you have allergies to any component of phentermine If you are , plan to become , are breast-feeding, or if you become while taking phentermine What are the absolute contraindications? Stroke or Transient Ischemic Attacks Cardiac arrhythmias or Atrial fibrillation Coronary artery disease Seizure Disorder Uncontrolled blood pressure Angina Congestive Heart Failure Valvular Heart Disease or primary pulmonary hypertension Drug interactions. Use of monamine oxidase inhibitors (MAOI s) What are the side effects of phentermine? Immediately discontinue the medicine and seek medical help if you have severe symptoms such as chest pain, shortness of breath, feeling faint, ability to think clearly, eye pain or other visual symptoms: Palpitations (strong or rapid heartbeat) Difficulty sleeping or falling asleep Elevated blood pressure Dry mouth Anxiety or agitation Getting a stimulant/or hyper effect or jitteriness-(Usually goes away after a few days or weeks) Glaucoma In case of emergency/overdose In case of overdose, call your local poison control center at or call local emergency services at [phone]. What other information should I know? Keep all appointments with your doctor and the laboratory. Do not let anyone else take your medication. Phentermine is a controlled substance. It is FDA approved for up to 3 months. Prescriptions may be refilled only a limited number of times. Keep a written list of all of your prescription and nonprescription (nlnc-slk-jiqkabl) medicines, in addition to vitamins, minerals, or other dietary supplements. If you are taking the extended-release (long-acting) tablets, do not split, chew, or crush them tablet. There are some tablets that can be crushed and mixed with food Alcohol can make the side effects of phentermine worse How should I monitor while on this medication? Please check your blood pressure (BP) and resting pulse weekly (twice a week in the first 2 weeks).If the BP is over 140/90 (either one), or if the resting pulse is over 96 per minute (count for 10 seconds and multiply by 6), then stop the medication and call your doctor. Continue to improve your dietary and physical activity habits as the combination works best while on this medication. Start out by taking the medication in the morning at least 30 minutes prior to meals. If the effectseems to wear off by dinner time, try taking it later in the morning, but taking too late may result in trouble falling asleep. Be sure to eat regular meals. Less hunger does not make it appropriate to skip meals. Monitor your caffeine intake and use of decongestants as they may worsen the effects of phentermine Make sure to have an eye exam, including the pressure in your eyes (intra-ocular pressure), once a year. What should I do if I forget a dose? Skip the missed dose and continue your regular dosing schedule the next day. Do not take a double dose to make up for a missed one. Sources [facility] Consumer Medication Info: http://www.ncbi.nlm.nih.gov/pubmedhealth/SHO0242919/ AMA patient handouts: http://www.amaassn.org/ama1/pub/upload/mm/433/phrxsurgery.pdf Drugs.com: http://www.drugs.com/pro/phentermine.html Foods that fight inflammation April 15, 2020 Doctors are learning that one of the best ways to reduce inflammation lies not in the medicine cabinet, but in the refrigerator. By following an anti- inflammatory diet you can fight off inflammation for good. What does an anti-inflammatory diet do? Your immune system becomes activated when your body recognizes anything that is foreign--such as an invading microbe, plant pollen, or chemical. This often triggers a process called inflammation. Intermittent bouts of inflammation directed at truly threatening invaders protect your health. However, sometimes inflammation persists, day in and day out, even when you are not threatened by aforeign invader. That's when inflammation can become your enemy. Many major diseases that plague us--including cancer, heart disease, diabetes, arthritis, depression, and Alzheimer's--have been linked to chronic inflammation. One of the most powerful tools to combat inflammation comes not from the pharmacy, but from the grocery store. Many experimental studies have shown that components of foods or beverages may have anti-inflammatory effects, says Dr. Stephan Payne, professor of nutrition and epidemiology in the Department of Nutrition at the [employer]. Choose the right anti-inflammatory foods, and you may be able to reduce your risk of illness. Consistently pick the wrong ones, and you could accelerate the inflammatory disease process. Get simple tips to fight inflammation and stay healthy -- from [facility] experts. Protect yourself from the damage of chronic inflammation Click here to learn more Foods that cause inflammation Try to avoid or limit these foods as much as possible: refined carbohydrates, such as white bread and pastries [place] fries and other fried foods soda and other sugar-sweetened beverages red meat (burgers, steaks) and processed meat (hot dogs, sausage) margarine, shortening, and lard The health risks of inflammatory foods Not surprisingly, the same foods on an inflammation diet are generally considered bad for our health, including sodas and refined carbohydrates, as well as red meat and processed meats. Some of the foods that have been associated with an increased risk for chronic diseases such as type 2 diabetes and heart disease are also associated with excess inflammation, Dr. Payne says. It's not surprising, since inflammation is an important underlying mechanism for the development of these diseases. Unhealthy foods also contribute to weight gain, which is itself a risk factor for inflammation. 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 Some of the food components or ingredients may have independent effects on inflammation over and above increased caloric intake, Dr. Payne says. Anti-inflammatory foods An anti-inflammatory diet should include these foods: tomatoes olive oil green leafy vegetables, such as spinach, kale, and collards nuts like almonds and walnuts fatty fish like salmon, mackerel, tuna, and sardines fruits such as strawberries, blueberries, cherries, and oranges Benefits of anti-inflammatory foods On the flip side are beverages and foods that reduce inflammation, and with it, chronic disease, says Dr. Payne. He notes in particular fruits and vegetables such as blueberries, apples, and leafy greens that are high in natural antioxidants and polyphenols--protective compounds found in plants. Studies have also associated nuts with reduced markers of inflammation and a lower risk of cardiovascular disease and diabetes. Coffee, which contains polyphenols and other anti-inflammatory compounds, may protect against inflammation, as well. Anti-inflammatory diet To reduce levels of inflammation, aim for an overall healthy diet. If you're looking for an eating plan that closely follows the tenets of anti-inflammatory eating, consider the Mediterranean diet, which is high in fruits, vegetables, nuts, whole grains, fish, and healthy oils. In addition to lowering inflammation, a more natural, less processed diet can have noticeable effects on your physical and emotional health. A healthy diet is beneficial not only for reducing the risk of chronic diseases, but also for improving mood and overall quality of life, Dr. Payne says. Cravings Most of us have experienced an intense urge to eat a certain food--ideally right away. More often than not, that food is likely to be sugary, salty, or fatty, or all three. You may feel increasingly excited as you imagine how it will taste and how you ll feel eating it. Maybe you last ate several hours ago, or maybe you re still digesting your last meal. These urges are called cravings, which canpop up at any moment, and aren t always fueled by hunger pangs. The Neurobiology of Cravings The terms sugar addict or chocoholic are often used, and people may blame cravings on a sweet tooth, bad eating habits, or lack of self-control. These may be true to a degree, but cravings actually involve a complex interplay of factors: brain messages, behaviors that become habits over time, and having easy access to food. Animal and human studies have shown that foods that stimulate the reward regions of the brain influence our food choices and eating behaviors. [1] When we eat certain foods,the neurons in the reward region become very active, creating highly positive feelings of pleasure so that we want to keep seeking these foods regularly. These foods are sometimes labeled hyperpalatable because they are easy to digest and have enjoyable qualities of sweet, saltiness, or richness. Hyperpalatable foods can stimulate the release of metabolic, stress, and appetite hormones including insulin, cortisol, dopamine, leptin, and ghrelin, all of which play a role in cravings. [1] Normally when eating a meal, appetite hormones are released. Examples are glucagon-like peptide andcholecystokinin from the digestive tract, and leptin from fat cells, which cause feelings of fullness and communicate with the brain to stop eating. On the flipside, if the body hasn t received food for several hours, ghrelin is released from the stomach to signal hunger. Eating hyperpalatable foods too often might interfere with how the brain processes these hormonal signals so that one may feelcontinued cravings despite having eaten enough food. [1] Animal studies have shown that brain signals can become disrupted when eating a very high sugar or high fat diet, which may trigger the release of hormones that reduce stressful emotions and therefore lead to a habitual desire for these comforting foods. [2] Interestingly, human studies have also found associations with strong cravings and artificially sweetened foods and beverages (i.e., diet soda), as their intensely sweet flavor may pro duce the same rewarding effects as sugar. [3] What is the reward region of the brain? Different areas of the brain make up the reward system, but the gonzalez part of the brain related to cravings and regulating appetite is called the hypothalamus. It is a tiny pea-sized area that comprises less than 1% of the weight of the brain. It regulates the secretion of chemicals and hormones related to stress, pleasure, pain, and hunger. A neurotransmitter in the hypothalamus called dopamine, the feel good chemical, sends messages to other nerves to signal positive emotions that are associated with rewarding experiences. The expectation of receiving a reward, not necessarily the reward itself, stimulates higher dopamine activity. Dopamine release is even larger if the reward is greater than anticipated, which may stimulate a person to seek that experience or substance again and again. Eating certain foods repeatedly that stimulate the reward region is believed by some researchers to lead to addictive food behaviors or emotional overeating. [4] Food craving versus addiction? Although it s pretty clear that certain foods have the ability to keep us coming back for more, it is less clear if food can be addictive in the same manner as drugs and alcohol. A food craving is anintense and persistent desire for a food, but that craving isn t always for something delicious. Itcan also be caused by a nutritional deficiency, boredom, or self-imposed food restrictions. [4] A food addiction is one step beyond, including not only intense cravings but also exhibiting a loss of control of eating behaviors and repeated excess consumption of food, especially hyperpalatable foods. [5] There is a lack of consensus if food addiction exists, or if some individuals who struggle to control their food intake can be considered food addicts. It remains a highly debated area. Some researchers argue that the defining features of drug and alcohol addiction are not seen with food addiction,while others feel they share similar traits related to neurological changes in the brain. [2,6,7] Potential similarities of addictive substances and hyperpalatable foods in how they affect the brain: [4] Both activate the same pathways triggering dopamine signals and the reward- learning regions in the brain. Both can lead to a need to use increasing amounts over time due to tolerance, which is caused by changes in brain signaling. Both are associated with difficulty in quitting due to a hyperactive response in the brain reward regions when the substance or food is present. Animal studies have shown that hyperpalatable foods and addictive substances can cause imbalances in the brain s reward system. Normal eating patterns are regulated by brain responses in the hypothalamus with the release of appetite hormones and chemicals so that one eats when hungry and stops whenfull. It is also believed that this reward system is overstimulated and disrupted so that a person may continually seek specific foods especially when feeling negative emotions like too much stress. [2] The repeated behavior over time of using hyperpalatable foods to produce pleasurable or calming emotions with the release of dopamine can condition the brain to seek out this response. However, if there is a decreased response of the reward system (if, for example, less dopamine is secreted) one may experience less satisfaction after eating. As a result, one may eat larger amounts of hyperpalatable foods to try to achieve the same reward response. A similar effect, called tolerance, is seen with drug or alcohol addiction. Animal studies have shown that when cortisol is released with chronic stress, changes in the brain s response can lead to lower dopamine levels and increased cravings. Stress has also been associated with increased levels of the hormone ghrelin, again causing stronger cravings. High intakes of sugar have been studied to disrupt the body s natural ability to sense hunger or satisfaction, so that people may keep eating despite being full, which can then alter the body s natural homeostasis. [8] A review of clinical trials looking at the relationship of highly palatable sugary foods and negative emotions (stress, anxiety, depression, fear) found sugar to have addictive effe cts and cause changes in brain chemistry similar to other addictive substances, and the ability to produce negative withdrawal symptoms when stopping sugar intake. [2] Defining a food addiction In his book Hooked, author Yaw Garvin questions what defines an addiction. Does it involve a substance that we repeatedly use (or eat) that has the potential to cause harm if taken excessively? [9]If so, then water might be considered an addiction, as we drink it daily and often crave it. If onedrinks too much water, a dangerous condition called hyponatremia can result. Does an addiction involve taking a substance regularly that causes intense physical discomfort when stopping the substance? Then cocaine might not be considered an addiction, because although its withdrawal causes psychological symptoms, it does not cause physical symptoms as with alcohol. Determining an addiction is also complicated by the fact that signs and symptoms vary widely in individuals, based on their genes, body size, physical health, sex, and other factors. According to the [employer] s Diagnostic and Statistical Manual of Mental Disorders (DSM), at least two criteria from the following are required for a diagnosis of addiction: cravings, tolerance (progressively needing higher amounts to experience reward), consuming more than intended, withdrawal, desire or unsuccessful efforts to quit use, a great deal of time spent in activities involved in use, continued use despite knowledge of problems associated with use, and interference with daily activities. [4] The [employer] does not recognize food addiction as an eating disorder or substance abuse disorder, but their DSM criteria were used as a basis for the creation of the [employer] FoodAddiction Scale (YFAS). [4] This scale is a validated measurement tool that identifies eating patterns that are similar to behaviors seen in classic areas of addiction. [10] Rather than just identifying overeating and cravings, the questions cover a range of behaviors, emotions (e.g., anxiety, agitation, distress), physical side effects (e.g., fatigue, withdrawal), and interference with daily work and social activities that are associated with eating certain types of foods. A systematic review of all studies using the YFAS to assess food addiction found a prevalence of food addiction in almost 20% of the study population, with the highest rates in adult females older than 35 years and in participants with overweight/obesity. [11] Among those with a diagnosed eating disorder, the prevalence of food addiction was almost 58%. The most common symptom reported across allstudies was persistent desire or unsuccessful attempts to cut down food intake. The authors cautioned that the findings were not product support representative of a national population, as the main demographic in the studies sampled were females with overweight/obesity. In addition to using this scale to screen for individuals at risk for food addiction and diagnosable eating disorders, it may also be useful to identify any markers that show a progressive transition from impulsive eating events to compulsive eating behaviors to addictive behaviors. [4] Other Factors that Affect Cravings Food industry advertising Snacks are big business and the food industry spends more than $10 billion yearly on snack food advertising. [12] Many snacks fall into the category of hyperpalatable foods that can stimulate brain reward pathways. These craveable foods include potato chips, crackers, ice cream, soda, candy, and fast food meals, with high amounts of sugar, salt, and fat that send messages to the brain to eat me! . Just watching a 30-second television ad or seeing photos on social media of these delicious foods can spark cravings. Many ads for unhealthy snack foods and beverages are directed towards children and are considered akey component in an environment that promotes overeating, poor dietary behaviors, and obesity. [13,14] Increased exposure to food advertising is associated with a higher calorie intake and increased preference for hyperpalatable foods from those ads. [15-17] Children have the highest exposures, because screen time through handheld devices has become a prevalent recreational activity whether it betelevision, social media, or online silvano. Surprisingly, educational websites also ranked in the top 10 for snack, sugary drink, fast food, and sugary cereal ads. [13] Stress Whereas acute sudden stress tends to suppress appetite, longer-lasting chronic stress is associated with cravings for hyperpalatable high-fat calorie-dense foods. [18] This association may be caused by disturbances of messages to the brain that cause the release of cortisol, which stimulates appetite and cravings. Read more about how chronic stress affects eating patterns. Sleep Adequate sleep helps to regulate metabolic functions, and a lack of sleep is associated with imbalances in leptin and ghrelin levels. These hormonal fluctuations may lead to overeating due to cravings for sweet, starchy, high- fat, and salty foods. [19] Read more about sleep deficiency and eating beh aviors. Exercise Exercise typically lowers levels of appetite-stimulating ghrelin and increases appetite-suppressingleptin and glucagon-like peptide, at least in the short term. [20] However, there are several factors that can influence how much exercise affects one s appetite. The longer the duration and the higher the intensity of a workout, the more likely one s appetite shuts down, as blood is quickly moved away from the gut and to the heart and muscles to supply oxygen. [21] After exercising, normal hunger signaling gradually resumes. A shorter, less intense workout such as a moderate walk on a treadmill for 20 minutes may not have any effect on the appetite. Hormonal changes In women, hormones fluctuate during various phases of their menstrual cycle. When estrogen levels are low and progesterone is high, one may feel increased cravings and less satisfied after eating. The brain has receptors for estrogen, and higher levels of estrogen are associated with fullness and satisfaction after eating. [22] Estrogen also suppresses hunger by decreasing levels of ghrelin and increasing the effectiveness of cholecystokinin, an appetite- suppressing hormone. [23] Most research in this area has been with animal studies, but it is a topic of ongoing interest, especially in women who experience weight gain and who have low estrogen levels due to menopause or medical treatmentsthat suppress estrogen (e.g., some chemotherapies). Medications In some people, drugs like antidepressants (e.g., sertraline, mirtazapine, paroxetine) and antipsychotics (e.g., quetiapine, aripiprazole) can increase appetite and weight. [24] The mechanism explaining why this happens isn t clearly understood, but a change in metabolism and altered brain messagesthat signal appetite are suspected. These antidepressants interfere with the neurotransmitter serotonin, which regulates mood and appetite. Another medication that increases appetite is prednisone, asteroid sometimes given to replete low cortisol levels with certain health conditions. Prednisone can promote leptin resistance so that leptin does not work properly to suppress appetite, causing oneto feel persistent hunger. Tips to reduce food cravings Aim to eat nutritionally balanced meals. Foods with protein and fiber provide longer-lasting satisfaction. Avoid long stretches of not eating. Eat a nutritious meal or snack every 3-4 hours. Waiting too long to eat because you are busy or distracted may only lead to stronger hunger when you do eat and therisk of overeating. Also keep in mind that if your bedtime is more than 4 hours after you ve finished dinner, you may feel hungry again; to avoid snacking late night which can disrupt sleep, try to go to bed earlier when possible. Avoid choosing hyperpalatable or ultraprocessed snacks that are high in sodium, fat, sugar, and calories but low in nutrition. These are the types of foods that trigger the brain reward pathways and cause cravings to eat more. Choose satisfying, less-processed snacks like fresh fruit, a handful of nuts, or a cup of low-sugar yogurt. Limit environmental cues to eat, such as scrolling through social media posts about food or muValopaaang(online videos of people eating enormous quantities of decadent meals) and watching television cooking shows. In an office setting, detour away from the candy bowls and platters of bagels and treats that may be sitting in the break room. Food cravings are sometimes learned behaviors that are associated with an event or environment, such as craving potato chips while watching late-night television. If so, research suggests that it is possible to unlearn the behavior and reduce the craving by avoiding the food completely for an extended time. [25] In addition, you can try changing the association by changing your evening routine with a different activity like listening to an audiobook or podcast. Practice mindfulness when sensing a growing craving. Ask yourself if you are stressed, bored, angry? If so, try instead doing breathing exercises, talking a brisk 5-10 minute walk, listening to a meditation lesley or podcast, or playing a few favorite songs. If you can distract yourself from eating for about 5-7 minutes, the craving may subside. Learn more about mindful eating. Try other dopamine-inducing activities such as taking a walk in nature on a saul day, dancing, or watching a funny video and laughing aloud! [email or web address]/nutritionsource/cravings/ Get started cutting down on sugar with these tips: Toss the table sugar (white and brown), syrup, honey and molasses. Cut back on the amount of sugar added to things you eat or drink regularly like cereal, pancakes, coffee or tea. Try cutting the usual amount of sugar you add by half and wean down from there. Swap out the soda. Water is best, but if you want something sweet to drink or are trying to lose weight, diet drinks can be a better choice than sugary drinks. Eat fresh, frozen, dried or canned fruits. Choose fruit canned in water or natural juice. Avoid fruit canned in syrup, especially heavy syrup. Drain and rinse in a colander to remove excess syrup or juice. Compare food labels and choose products with the lowest amounts of added sugars. Dairy and fruit products will contain some natural sugars. Added sugars can be identified in the ingredients list. Add fruit. Instead of adding sugar to cereal or oatmeal, try fresh fruit (bananas, cherries or strawberries) or dried fruit (raisins, cranberries or apricots). Cut the serving back. When baking cookies, brownies or cakes, cut the sugar called for in your recipe by one-third to one-half. Often you won t notice the difference. Try extracts. Instead of adding sugar in recipes, use extracts like almond, vanilla, orange or lemon. Replace it completely. Enhance foods with spices instead of sugar. Try sherin, allspice, cinnamon or nutmeg. Substitute. Switch out sugar with unsweetened applesauce in recipes (use equal amounts). Limit Non-nutritive Sweeteners. If you are trying to lose weight, a temporary fix to satisfying your sweet tooth may be with non-nutritive sweeteners. But watch out! Make sure that swapping sugary options for non-nutritive sweeteners now doesn t lead to eating more later. https://www.heart.org/en/healthy-living/healthy-eating/eat-smart/sugar/tips-for- iepcraf-welb-hr-sugar Why You May Want to Weigh Yourself Every Day At any given moment, an estimated 24% of men and 38% of women in the [place] are trying to lose weight (1Trusted Source). Meanwhile, obesity has skyrocketed and working-age adults are gaining about 2.2 pounds (1 kg) annually, on average (2Trusted Source, 3Trusted Source). Recent studies have shown that daily self-weighing may be a powerful tool for both losing and maintaining weight. However, many people believe that weighing yourself daily contributes to bad mental health and disordered eating habits. So what should you believe? This article sets the record straight on whether you should start weighing yourself daily. Weighing Yourself Daily Helps You Lose More Weight The simple act of self-weighing has received lots of attention and stirred up controversy for years. Some people have even thrown away their scale, claiming that it s a highly misleading weight loss tool that results in bad self-esteem and disordered eating habits (4, 5). However, recent studies generally agree that daily weighing is associated with greater weight loss and less weight regain than less-frequent self-weighing (6Trusted Source, 7, 8, 9). One study showed that participants who weighed themselves daily for six months lost 13 more pounds (6 kg), on average, than those who weighed themselves less frequently (10. What s more, those who weigh themselves daily tend to adopt more favorable weight control behaviors, exercise better restraint toward food and eat impulsively less often (10, 11). Interestingly, adopting healthy weight-related behaviors has been shown to be especially important when people emerge from adolescence into adulthood (12). One study in participants aged 18-25 showed that daily self-weighing resulted in better weight lossthan less-frequent weighing (13). The researchers concluded that daily self-weighing is a particularly valuable self-regulation tool for this age group. Furthermore, another study showed that people who weighed themselves every day ate 347 fewer calories per day than those who did not. After six months, the group that weighed themselves daily ended up losing a whopping 10 times more weight than the control group (14). BOTTOM LINE: Daily self-weighing may cause people to lose more weight and gain less of it back, compared to less-frequent weighing. Daily Weighing May Motivate You and Improve Self-Control Being aware of your weight is a gonzalez factor in successful weight loss. Awareness of your weight trend -- that is, whether your weight is going up or down -- is also important. In fact, weighing yourself more often is linked to weight control, while weighing yourself less often has been associated with weight gain. One study found that participants who weighed themselves less often were more likely to report increased calorie intake and decreased restraint toward food (15). Self-weighing promotes self-regulation and awareness of your weight trend and weight-related behaviors. That s why it generally results in greater weight loss (14). Although the exact number on the scale may be unimportant, monitoring weight loss progress motivates you to keep going and generally improves weight-related behavior and self-control. Also, by being more aware of your weight, you can quickly react to lapses in your progress and makenecessary adjustments to maintain your goal. Since most people are able to sustain a habit of daily self-weighing, the adherence and acceptability of it is generally quite high (16Trusted Source, 17, 18, 19, 20). It s a minor addition to your daily routine that may help you reap major benefits for your weight. BOTTOM LINE: Daily self-weighing helps you maintain awareness of your weight. Monitoring weight loss progress further motivates you to keep going and improves your self-control. Daily Weighing Helps You Keep the Weight Off Frequent self-weighing has been shown to be a great way to prevent weight gain in the long-term (15, 2, 22, 23). One study investigated how much self-weighing frequency predicted weight manager change two years in working adults (24Trusted Source). It found that there was a significant link between self-weighing frequency and weight change. In normal-weight individuals, daily weighing resulted in a slight weight loss, while those who weighed themselves monthly gained 4.4 pounds (2 kg), on average. However, the largest difference was in overweight individuals. Those who weighed themselves daily lost 10 pounds (4.4 kg), while those who weighed themselves monthly gained 2.2 pounds (1 kg), on average (24). Another study came to a similar conclusion, showing that self-weighing was a significant predictor of body weight over time. Participants lost an extra pound (0.45 kg) of body weight for every 11 days they self-weighed (25). The main reason why this is so effective is that consistent self-weighing allows you to catch weight gain before it escalates and make the necessary changes to prevent more weight gain (15). BOTTOM LINE: Daily weighing may help prevent long-term weight gain, especially in overweight people. Weighing Yourself Daily Is Not as Bad as People Think Not so long ago, frequent self-weighing was thought to be damaging to your mental health. This notion still exists today. Self-weighing is claimed to have negative effects on your mood by continuously reinforcing that your body size is not ideal or appropriate, resulting in an increased risk of developing an eating disorder (4Trusted Source, 5Trusted Source). Although this may be true in a small group of people, most studies have repeatedly come to a different conclusion (9Trusted Source, 26Trusted Source, 27Trusted Source). The available research suggests there is very little evidence that frequent self-weighing is a cause of negative mood or body dissatisfaction, especially as part of a weight loss program (8Trusted Source, 12Trusted Source, 14Trusted Source, 26Trusted Source, 28Trusted Source, 29Trusted Source). In fact, studies indicate that frequent self-weighing may increase body satisfaction, rather than decrease it (9Trusted Source). That said, there is a group of people who may develop a negative body image, low self-esteem or undesirable eating behaviors as a result of daily self-weighing (30Trusted Source). If you find that daily self-weighing causes you to have bad feelings about yourself or your eating behaviors, you should find other methods to measure your progress. BOTTOM LINE: Most studies do not link frequent self-weighing to negative mood or body dissatisfaction. Some evenassociate them with higher body satisfaction. How to Weigh Yourself for Best Results The best time to weigh yourself is right after you wake up, after going to the bathroom and before you eat or drink. Your weight tends to fluctuate less in the morning than later in the day when you ve had plenty to eat and drink. That is also why people weigh the least in the morning. Also, it is best if you always weigh yourself in similar clothing each day. However, you need to keep in mind that your weight may fluctuate from day to day and can be affected by many factors, including: What you ate or drank the previous day Bloating or water retention Menstrual cycle Whether you ve had bowel movements recently Therefore, it is important to assess the trend of your weight over a longer period of time, insteadof drawing conclusions from each and every weighing. A basic scale will do just fine. However, many scales also have the ability to measure your body mass index (BMI), body fat percentage and muscle mass, which may help you get a better picture of yourprogress. There are also several apps available for your phone or computer that allow you to easily enter your daily weight and see the trend of your weight change. Happy Scale for iPhone and [place] for Androidare two such apps. BOTTOM LINE: It is best to weigh yourself right after you wake up, after going to the bathroom and before you eat or drink anything. Other Ways to Track Your Progress Although self-weighing may be a valuable tool, it has some limitations. If you re exercising and gaining muscle, the scale may not show your progress and instead simply show that you have gained weight. While losing weight can indicate progress, a scale does not differentiate between healthy weight (muscle) and unhealthy weight (fat). Therefore, it may be good to add other ways of tracking your progress to your regimen. Here are some examples: Measure circumference: Muscle has much less volume than fat, so your circumference may be decreasing even if your weight stays the same or goes up. Measure body fat percentage: By measuring your body fat percentage, you can observe changes in fat mass, regardless of your weight. Take pictures of yourself regularly: You can observe any changes in your physique by comparing photos of yourself in similar clothing. Note how your clothes feel: Any changes in your weight will probably affect how your clothes fit. Feeling them become looser or tighter is one of the best indicators of changes in your body. BOTTOM LINE: Other ways to track your progress include measuring your circumference, measuring your body fat percentage and taking pictures of yourself. Take Home Message Weighing yourself every day can help increase your awareness of your weight and weight-related behaviors. It may help you lose more weight and prevent you from gaining that weight back in the long-term. Daily self-weighing may just be that extra motivation you need to achieve your weight goals. https://www.[employer]/nutrition/daily-weighing Disrupted Sleep Linked to Weight Gain - YouTube How To Improve Your Sleep To Impact Your Weight Loss: https://[employer]/ep42/ Weight Loss and Sleep Updated May 06, 2020 Written by Bryant Giles Medically Reviewed by Ninfa Graves In This Article The Connection Between Sleep and Weight Sleep and Obesity Sleep During Weight Loss Maintaining a Healthy Relationship With Your Body Losing weight is challenging, and keeping weight off can be just as difficult. Although the medicalcommunity is still untangling the complicated relationship between sleep and body weight, several potential links have emerged that highlight the potential weight loss benefits of getting a good night s rest and the negative health impacts of sleep deprivation. The Connection Between Sleep and Weight Over the past several decades, the amount of time that Americans spend sleeping has steadily decreased1, as has the self-reported quality of that sleep. For much of the same time period, the average body mass index (BMI) of Americans increased2, reflecting a trend toward higher body weights and elevated rates of obesity. In response to these trends, many researchers began to hypothesize about potential connections between weight and sleep. Numerous studies have suggested that restricted sleep and poor sleep quality may lead to metabolic disorders, weight gain, and an increased risk of obesity and other chronic health conditions. While there is continuing debate within the medical community about the exact nature of this relationship, the existing research points to a positive correlation between good sleep and healthy body weight. There remains much to be discovered about the intricate details of how sleep and weight are connected. Several hypotheses offer paths for additional research with the hope that increasing our understanding of the relationship between weight and sleep will lead to reduced obesity and better weight-loss methods. Can Lack of Sleep Increase Appetite? One common hypothesis about the connection between weight and sleep involves how sleep affects appetite. While we often think of appetite as simply a matter of stomach grumbling, it s actually controlled by neurotransmitters, which are chemical messengers that allow neurons (nerve cells) to communicate with one another. The neurotransmitters ghrelin and leptin are thought to be central to appetite. Ghrelin promotes hunger, and leptin contributes to feeling full. The body naturally increases and decreases the levels of these neurotransmitters throughout the day, signaling the need to consume calories3. A lack of sleep may affect the body s regulation of these neurotransmitters. In one study, men who got 4 hours of sleep had increased ghrelin and decreased leptin compared to those who got 10 hours of sleep. This dysregulation of ghrelin and leptin may lead to increased appetite and diminished feelings of fullness in people who are sleep deprived. In addition, several studies have also indicated that sleep deprivation affects food preferences. Sleep-deprived individuals tend to choose foods that are high in calories and carbohydrates4. Other hypotheses regarding the connection between sleep and increased appetite involve the body s endocannabinoid system5 and orexin6, a neurotransmitter targeted by some sleep aids. Many researchers believe that the connection between sleep and dysregulation of neurotransmitters is complicated and additional studies are needed to further understand the neurobiological relationship. Does Sleep Increase Metabolism? Metabolism7 is a chemical process in which the body converts what we eat and drink into energy needed to survive. All of our collective activities, from breathing to exercising and everything in between, is part of metabolism. While activities like exercise can temporarily increase metabolism, sleep cannot8. Metabolism actually slows about 15% during sleep, reaching its lowest level in the morning 9. In fact, many studies have shown that sleep deprivation (whether due to self- induction, insomnia, untreated sleep apnea, or other sleep disorders) commonly leads to metabolic ffqbfmejhtqpi51. Poor sleep is associated with increased oxidative stress, glucose (blood sugar) intolerance (a precursor todiabetes), and insulin resistance. Extra time spent awake may increase the opportunities to eat11, and sleeping less may disrupt circadian rhythms, leading to weight gain12. How is Sleep Related to Physical Activity? Losing sleep can result in having less energy for exercise and physical activity. Feeling tired canalso make sports and exercising less safe, especially activities like weightlifting and or those requiring balance. While researchers are still working to understand this jceprkwhev42, it s well known that exercise is essential to maintaining weight loss and overall health. Getting regular exercise can improve sleep quality, especially if that exercise involves natural light. While even taking a short walk during the day may help improve sleep, more activity can have a more dramatic impact. Engaging in at least 150 minutes of moderate-intensity or 75 minutes of high-intensity exercise per week can improve daytime concentration and decrease daytime byiqyfbepq50. Sleep and Obesity In children and adolescents, the link between not getting enough sleep and an increased risk of obesity is well-established, although the reason for this link is still being debated. Insufficient sleep in children can lead to metabolic irregularities as discussed earlier, skipping breakfast in the mornings, and increased intake of sweet, salty, fatty, and starchy foods15. In adults, the research is less clear. While a large analysis of past studies suggests that people getting less than 6 hours of sleep at night are more likely to be diagnosed as obese16, it s challenging for these studies to determine cause and effect. Obesity itself can increase the risk of developing conditions that interfere with sleep, like sleep apnea and depression. It s not clear if getting less sleep is the cause of obesity in these studies, if obesity is causing the participants to getless sleep, or perhaps a mix of both. Even though more studies are needed to understand this connection, experts encourage improving sleep quality when treating obesity in adults. Sleep During Weight Loss Getting adequate, quality sleep is an important part of a healthy weight loss plan. Most importantly, research has shown that losing sleep while dieting can reduce the amount of weight lost17 and encourage kyxrzuahvb46. Tips for Quality Sleep During Weight Loss There are many ways to improve sleep. Here are a few research-based tips for sleeping better when you re trying to lose weight: Keep a regular sleep schedule: Big swings in your sleep schedule or trying to catch up on sleep after a week of late nights can cause changes in metabolism and reduce insulin djdseuizkdq70, making iteasier for blood sugar to be elevated. Sleep in a dark room: Exposure to artificial light while sleeping, such as a TV or bedside lamp, isassociated with an increased risk of weight gain and yftrtkb24. Don t eat right before bed: Eating late may reduce the success of weight loss Reduce Stress: Chronic stress may lead to poor sleep and weight gain in several ways, including eating to cope with negative dkytijyr10 Be an Early Bird: People with late bedtimes may consume more calories and be at a higher risk for weight gain23. Early birds may be more likely to maintain weight loss when compared to night owls24. Maintaining a Healthy Relationship With Your Body Deciding if you should attempt to change your body weight is a personal decision best made with theguidance of your doctor. Don t take all the health and weight loss information you read wlumom49 atface value. Weight loss isn t appropriate for everyone and doesn t always mean better health. Remember that health is a lifelong journey that includes not only healthy habits but also having a healthy relationship with your body. If you re considering weight loss, the National Institutes of Health offers a helpful resource for choosing a safe weight loss gcsgvzs07yCbflvcv Source National Centrahoma of Diabetes and Digestive and Kidney DiseasesNIDDK research creates knowledge about and treatmentsfor diseases that are among the most chronic, costly, and consequential for patients, their families, and the Nation. niddk.nih.gov . https://www.sleepfoundation.org/physical-health/ldlrdj-ehmo-jqu-sleep documented in this encounterScci [facility]03-28-2023 History of Present illness Narrative* Marleni Freeman MD - 10/23/2022 9:05 AM EDT Images from the original note were not included. October 23, 2022 Patient Summary: is 42 year old who presents for follow-up evaluation of Her obesity/weight management. Jennifer Manning is here today for follow up evaluation for restarting phentermine. her last office visit was 2months ago. Patient reports since stopping the phentermine she has had a 3 pound weight gain. She states she is having a flareup of some GI issues and will be having a colonoscopy soon. Patient reports does have autoimmune disorders and knows that she needs to improve her diet. Patient states that the phentermine helped her to decrease her cravings and eat less. She was trying to be more mindful with getting protein. She did not have any side effects from the phentermine. She did lose a total of 18 pounds in 3 months which was more than the 5% needed to continue the medication. Patient understands that the laws in [place] have changed and she would like to be back on the phentermine for weight loss and weight maintenance. Weight graph: Interval History Feels that her snacking is getting worse now that she is off the phentermine. She has gained 4 pounds. Exercise: stable Stress: increased Sleep: stable but not adequate Weight loss since last vist: Weight and Change in Weight Flowsheet Row Most Recent Value Weight 209 lb (94.8 kg) Change in Weight 12.701 kg Anti-Obesity Medications >Phentermine: No uncontrolled HTN, No CVD Hx or hx of seizure disorder. No MAOI inhibitor use. No drug abuse hx. Crcl > 15. >Topiramate/zonisamide: No seizure or kidney stone hx. hx of migraines, no hx of poor sleep. yes Child bearing age. Estimated Creatinine Clearance: 134.5 mL/min (based on SCr of 0.62 mg/dL). 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 Multivitamin capsule Take 1 capsule by mouth once daily. Ferrous Sulfate (SLOW FE) 142 mg (45 mg iron) TbER Take 1 tablet by mouth every other day. 15 tablet 3 levothyroxine (SYNTHROID) 75 mcg tablet Take 1 tablet by mouth daily before breakfast. 90 tablet 3 cyanocobalamin (VITAMIN B-12) 1,000 mcg tab Take 1 tablet by mouth once daily. citalopram (CELEXA) 20 mg tablet Take 1 tablet by mouth once daily. 90 tablet 1 levonorgestrel (MIRENA) 20 mcg/24 hours (7 yrs) 52 mg IUD 1 Each by INTRAUTERINE route one time only. No current facility-administered medications for this visit. ROS BP 116/70 Pulse 80 Wt 209 lb (94.8 kg) LMP 04/25/2021 BMI 34.25 kg/m Physical Exam Gen: female in NAD Assessment/Plan: Jennifer Manning is a 42 year old yo with class 1 obesity who presented today for follow up for supervised weight loss. Would like to restart phentermine. She has no contraindications to restarting.She did well on the medication before without any side effects. We did discuss possibly starting topiramate as she does indulge in carbonated sodas. We discussed that topiramate may alter her taste for this and can help to decrease that. We also discussed that the topiramate may help with her sleephabits. We discussed an anti-inflammatory diet due to her autoimmune disorders. We discussed the importance of tracking her weight and her food intake. We discussed eating more whole foods decreasing additives. Patient is advised that she needs to look at her AVS for further information. She will follow-up in 1 month where we will consider starting the topiramate. She has no contraindication for topiramate. She uses tubal ligation as well as a Mirena IUD. I spent a total of 30 minutes on the date of the service which included preparing to see the patient, hpzb-eh-fdux patient care, completing clinical documentation, obtaining and/or reviewing separately obtained history, performing a medically appropriate examination, counseling and educating the pat ient/family/caregiver, and ordering medications, tests, or procedures. Follow up in 4 weeks Marleni Avendaño MD documented in this encounterScci [facility]03-03-2023 Miscellaneous Notes* Telephone Encounter - Caitlin Pagan - 09/28/2022 2:26 PM EST Called and left a second message that I did receive her 2019 colon report. * Telephone Encounter - Caitlin Pagan - 09/28/2022 10:53 AM EST I left patient a voice mail message requesting last colonoscopy report for Crohn's. I then saw notes in Care Everywhere; spoke to medical records at [facility] in [place] and they have a 2019 colon report. Sent release for copy. Caitlin Saavedra documented in this encounterScci Hospital [facility]ima02-20-2023 Miscellaneous Notes* Telephone Encounter - Denice Rubin RN - 09/17/2022 4:18 PM EST Pt called and is notified of providers message and instructions. Pt voices understanding. Denice Rubin RN * Telephone Encounter - Brenda Roy APRN.CNP - 09/17/2022 4:02 PM EST I sent in prescription for slow release iron she can take one pill EVERY OTHER DAY. Recheck levels in 6 weeks. Brenda Roy APRN.CNP * Telephone Encounter - Ela Penn LPN - 09/17/2022 3:32 PM EST Patient currently taking vitaifusion, it's a gummy, a woman multivitamin. Should patient keep taking that or should she stop that and start the flinestone. Or, patient would be ok with adding a slow release iron. Thinks her stomach did ok on a slow release. Please advise. Ela Penn LPN * Telephone Encounter - Brenda Roy APRN.CNP - 09/17/2022 7:36 AM EST If she tolerated the [place] she could give it a try again and we could recheck the lelvels in six week to see how she is doing with it. Brenda Roy APRN.JEANNIE * Telephone Encounter - Ariane Oquendo LPN - 09/15/2022 9:34 AM EST Spoke with pt and information listed below given. Pt verbalizes understanding. Pt reports she has taken iron in the past but has to be careful due to her stomach. She had taken [place] with extra iron and did okay on this. She thought maybe a slow release in the past not certain was okay. Please advise. okay to leave a message. Ariane Oquendo LPN * Telephone Encounter - Fely Zhogn LPN - 09/14/2022 4:10 PM EST Please review 2nd TE with patient. * Telephone Encounter - Ela Penn LPN - 09/14/2022 8:36 AM EST Patient telephoned. Message left to call office back and ask for a nurse for update. Ela Pnen LPN * Telephone Encounter - Brenda Roy APRN.CNP - 09/14/2022 7:51 AM EST Please call patient and let her know her iron level is low but no anemia at this time. Has she taken and iron supplement before? The rest of her blood work is in acceptable ranges. Brenda Roy APRN.JEANNIE documented in this encounterScci Hospital [facility]02-18-2023 Miscellaneous Notes* Telephone Encounter - Ariane Oquendo LPN - 09/15/2022 9:33 AM EST Spoke with pt and information listed below given. Pt verbalizes understanding. Ariane Oquendo LPN * Telephone Encounter - Fely Zhong LPN - 09/14/2022 4:11 PM EST Please review 2nd TE with patient. * Telephone Encounter - Ela Penn LPN - 09/14/2022 10:16 AM EST Message left for patient to call back for update. Ela Penn LPN * Telephone Encounter - Brenda Roy APRN.CNP - 09/14/2022 8:40 AM EST Please call patient and let her know her mammogram results show there is no mammographic evidence of malignancy. A 1 year screening mammogram is recommended. Brenda Roy APRN.JEANNIE documented in this encounterScci Hospital [facility]ima02-17-2023 Miscellaneous Notes* Letter - Mammography Coordinator - 09/14/2022 8:27 AM EST September 17, 2022 PID: [id number] Jennifer Manning [address] [place] [address] [address] [place] [address] Dear Radhika Kerri, We are pleased to inform you that the results of your recent breast imaging exam on 09/13/2022 are normal. Early detection of cancer is very important. We also understand recommendations regarding breast cancer screening are controversial. Please discuss with your primary care provider which strategy is best for you and whether a mammogram is right for you. Your imaging studies and report will be [facility] part of [facility] permanent medical record and are available for your continuing care. Thank you for allowing us to help in meeting your health care needs. Sincerely, Dr. Keller Interpreting Radiologist [facility] (Normal over 40) documented in this encounterScci Hospital [facility]ima02-16-2023 History of Present illness Narrative* Marleni Freeman MD - 09/13/2022 9:32 AM EST Jennifer is a 42 year old who presents for an annual gynecologic exam without complaints. Ptvery happy with results of Phentermine would like to continue use but understands laws in [place]. Menses: irregular- Mirena IUD . Contraception: IUD and tubal sterilization HPV vaccine: No Last Pap: 07/20/2021 normal HPV: 07/19/2021 negative History of abnormal pap: No Last mammogram: 2020normal Sexually active: Yes History of STDS: None Patient concerns for STD exposure: No. Pain with intercourse: No Postcoital bleeding: No Hot flashes: No Night sweats: No Vaginal dryness: No Exercise: active Diet: balanced OB History T1 L3 SAB1 IAB0 Ectopic0 Multiple0 Live Births3 Comment: G1- low fluid, placental infarcts, went into labor, had emergency c/s nonreassuring FHTs, 2 vessel cords G2 SAB, no D&C, early G3- no problems w/ this , scheduled c/s D[employer] History LMP: 04/25/2021, IUD Age at Menarche: Age at First : Age at Menopause: Dumper [employer]k System History Comments: Sexual Activity: Yes; No partner data on record Contraception: Tubal Ligation PAST MEDICAL HISTORY Diagnosis Date Alopecia Appendicitis, acute 09/09/2020 Asthma exercise induced in high school Crohn's disease (HCC) Low ferritin level 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, 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 Thyroid disease PAST SURGICAL HISTORY Procedure Laterality Date DELIVERY ONLY 10/25/2017 tubal ligation LAP SURG APPENDECTOMY 09/09/2020 PAST SURGICAL HISTORY OF 2 c sects PCHG TUBAL W/ Bilateral 10/25/2017 FAMILY HISTORY Problem Relation Age of Onset Rheumatologic disease Mother Arthritis Mother other (Raynauds) Mother other (mitral valve) Mother Breast Cancer Mother Allergies Sister other (mitral valave) Sister Diabetes Maternal Grandmother Cancer Maternal Grandfather Heart Maternal Grandfather Diabetes Maternal Grandfather Heart Paternal Grandfather Cancer Maternal Aunt breast No Ocular Disease Other SOCIAL HISTORY Social History Tobacco Use Smoking status: Never Smokeless tobacco: Never Vaping Use Vaping Use: Never used Substance Use Topics Alcohol use: Yes Comment: 2-3 glasses of wine per week, not while Drug use: No REVIEW OF SYSTEMS Abdomen: No abdominal pain, nausea, vomiting, diarrhea, or constipation. No bloating, early satiety, indigestion, or increased flatulence. Bladder: No dysuria, gross hematuria, urinary frequency, urinary urgency, or incontinence. Breast: No breast lumps, nipple d/c, overlying skin changes, redness or skin retraction. Allergies and current medication updated:Yes EXAM: BP 116/72 Ht 5' 6 (1.68m) Wt 190 lb (86.2kg) LMP 04/25/2021 BMI 30.68 kg/(m^2). GENERAL: pleasant, female in no apparent distress HEENT: Normocephalic, atraumatic, mucus membranes moist, and no lesions NECK: Supple, full range of motion, no adenopathy, and thyroid normal DERMATOLOGY: Normal, without lesions, non-icteric, and non-hirsute BREAST: soft, non-tender, symmetric, no dominant mass, normal nipple-areolar complex, no lymphadenopathy, and no nipple discharge ABDOMEN: soft, non-tender, and no masses PELVIC: external genitalia normal, normal Bartholin's glands, urethra, Terry's glands, no vulvar lesions, no cervical lesions, good vaginal support, physiologic discharge present, normal appearing perineal body and perianal region, IUD strings seen BIMANUAL: uterus normal size, shape and consistency, no adnexal masses, and non-tender RECTOVAGINAL: deferred. NEURO: alert and oriented x3,exam grossly non-focal EXTREMITIES: normal ASSESSMENT/PLAN: 1) Health maintenance: Pap/HPV up to date. Mammogram ordered. Nutrition, exercise and routine health maintenance exams reviewed. Calcium/Vitamin D supplementation information provided. 2) Contraception: IUD and tubal sterilization. Contraceptive options reviewed and information provided. 3) STD screening: Declined STD check. 4) Follow up one year or sooner as needed 5) Qsymia ordered- but if phentermine approved for [employer] use will put back on that. No contraindication to start. Proper use reviewed. Marleni Avendaño MD * Delma Castelan Ma - 09/13/2022 7:57 AM EST Code Official offered: Patient declines. documented in this encounterScci Hospital [facility]01-16-2023 Miscellaneous Notes* Telephone Encounter - Nilsa Walters Ma - 08/13/2022 9:52 AM EST Pt notified of results via [employer]. Nilsa Walters Ma * Telephone Encounter - Ela Penn LPN - 08/07/2022 9:55 AM EST Message left for patient to call office back. Ela Penn LPN * Telephone Encounter - Brenda Roy APRN.CNP - 08/07/2022 9:31 AM EST 30 days of synthroid sent- needs appointment. Please assist in scheduling. Brenda Roy APRN.JEANNIE documented in this encounterScci Hospital [facility]ima01-10-2023 Miscellaneous Notes* Telephone Encounter - Love Ruelas LPN - 08/07/2022 8:49 AM EST Patient has been identified by name and date of : Yes Patient phones for refill(s): Requested Prescriptions Pending Prescriptions Disp Refills levothyroxine (SYNTHROID) 75 mcg tablet 90 tablet 1 Sig: Take 1 tablet by mouth daily before breakfast. Date of last office visit in primary care: 06/14/21 Last 2 Encounter Wt Readings: Date: Wt: 07/25/2022 87 kg (191 lb 12.8 oz) 06/25/2022 88.9 kg (196 lb) Previous labs/tests for medication: Thyroid: TSH (uU/mL) Date Value 05/15/2021 2.830 Please advise. Thank you. Love Ruelas LPN documented in this encounterScci Hospital [facility]ima10-25-2022 Instructions* Patient Instructions* Marleni Freeman MD - 05/22/2022 9:13 AM EDT The Obesity Code by Dr. Sandro Perera Life in the Fasting [place] by Dr. Sandro Perera Fast, Feast, Repeat By Wandy Marr documented in this encounterScci Hospital [facility]ima10-25-2022 History of Present illness Narrative* Marleni Freeman MD - 05/22/2022 8:52 AM EDT Jennifer Manning is a 41 year old female who presents for discussion regarding diet exercise and possible assistance of weight loss. Patient reports having a hard time balancing life with 3 active children and a full-time job. Patient states she knows that she does not often make the best choices for her food but at this time is ready to make a change. Patient states that her is interested in starting the keto diet. Patient already eats gluten-free. Patient states that she is very active during the day and gets over 10,000 steps per day. Offers no other concerns at this time. Patientis interested in starting Adipex. Patient denies any cardiac diseases high blood pressure for current issues with tachycardia. OB History T1 L3 SAB1 IAB0 Ectopic0 Multiple0 Live Births3 Comment: G1- low fluid, placental infarcts, went into labor, had emergency c/s nonreassuring FHTs, 2 vessel cords G2 SAB, no D&C, early G3- no problems w/ this , scheduled c/s D[employer] Bulk System History LMP: 04/25/2021, IUD Age at Menarche: Age at First : Age at Menopause: Dumper Bulk System History Comments: Sexual Activity: Yes; No partner data on record Contraception: Tubal Ligation PAST MEDICAL HISTORY Diagnosis Date Alopecia Appendicitis, acute 09/09/2020 Asthma exercise induced in high school Crohn's disease (HCC) Low ferritin level 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, 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 Thyroid disease PAST SURGICAL HISTORY Procedure Laterality Date DELIVERY ONLY 10/25/2017 tubal ligation LAP SURG APPENDECTOMY 09/09/2020 PAST SURGICAL HISTORY OF 2 c sects PCHG TUBAL W/ Bilateral 10/25/2017 FAMILY HISTORY Problem Relation Age of Onset Rheumatologic disease Mother Arthritis Mother other (Raynauds) Mother other (mitral valve) Mother Breast Cancer Mother Allergies Sister other (mitral valave) Sister Diabetes Maternal Grandmother Cancer Maternal Grandfather Heart Maternal Grandfather Diabetes Maternal Grandfather Heart Paternal Grandfather Cancer Maternal Aunt breast No Ocular Disease Other Social History Tobacco Use Smoking status: Never Smokeless tobacco: Never Vaping Use Vaping Use: Never used Substance Use Topics Alcohol use: Yes Comment: 2-3 glasses of wine per week, not while Drug use: No Current Outpatient Medications Medication Sig citalopram (CELEXA) 20 mg tablet Take 1 tablet by mouth once daily. levothyroxine (SYNTHROID) 75 mcg tablet Take 1 tablet by mouth daily before breakfast. levonorgestrel (MIRENA) 20 mcg/24 hours (7 yrs) 52 mg IUD 1 Each by INTRAUTERINE route one time only. cyanocobalamin, vitamin B-12, (VITAMIN B-12 SUBLINGUAL) Dissolve under the tongue. Multivitamins-Iron tab Take 1 tablet by mouth once daily. CALCIUM CARBONATE/VITAMIN D3 (CALCIUM + D ORAL) Take by mouth. 2 gummies at bedtime No current facility-administered medications for this visit. Allergies As of Date: 05/22/2022 Allergen Noted Reaction MORPHINE 01/09/2016 Vomiting SEASONAL ALLERGIES 01/09/2016 Other: See Comments Fully Assessed 07/17/2021 REVIEW OF SYSTEMS Abdomen: no pain Bladder: no dysuria .. Expanded ROS: GENERAL: weight gain Allergies and current medication updated:Yes EXAM: BP 110/70 Wt 209 lb (94.8kg) LMP 04/25/2021 GENERAL: pleasant, female in no apparent distress HEENT: Normocephalic and atraumatic NECK: full range of motion DERMATOLOGY: Normal and without lesions NEURO: alert and oriented x3,exam grossly non-focal ASSESSMENT AND PLAN: Encounter Diagnosis ICD-10-CM 1. Class 1 obesity with body mass index (BMI) of 34.0 to 34.9 in adult, unspecified obesity type, unspecified whether serious comorbidity present E66.9 Phentermine HCl (ADIPEX-P) 37.5 mg capsule Z68.34 2. Thyroid disease E07.9 3. Reviewed books that I recommend following. Discussed different diet and lifestyle modifications that may work for her. We discussed that everybody is different and will need to find what she can change and maintain in her life. We discussed meal prepping. Discussed Adipex. There are no contraindications for her to start. We reviewed common side effects that she may experience. Discussed that she will need to follow-up every 30 days in the office for blood pressure and a weight check. We discussed that this is a controlled substance and that she can only be taking it for 3 months. She has no history of addictive traits or use of substances. Medical Decision Making: Problems: Moderate: 1+ chronic illnesses with change Risk: Moderate: Drug management and Moderate risk from testing/treatment Medical Decision Making Level: 4 - Moderate Marleni Avendaño MD documented [facility] this encounter[facility] Miscellaneous Notes* Telephone Encounter - Brenda Roy APRN.CNP - 03/13/2022 12:17 PM EDT Prescription for Celexa sent yesterday. Brenda Roy APRN.CNP * Telephone Encounter - Ela Penn LPN - 03/13/2022 12:02 PM EDT Patient phones requesting refills as follows: Requested Prescriptions Pending Prescriptions Disp Refills citalopram (CELEXA) 20 mg tablet 90 tablet 1 Sig: Take 1 tablet by mouth once daily. JESUS 06/14/21 No upcoming appointment scheduled Please review and advise. Ela Penn LPN documented in this encounterS[facility]-15-2022 Miscellaneous Notes* Telephone Encounter - Umm Saldivar MA - 03/12/2022 3:36 PM EDT Patient calls requesting refill: Requested Prescriptions Pending Prescriptions Disp Refills citalopram (CELEXA) 20 mg tablet 90 tablet 1 Sig: Take 1 tablet by mouth once daily. Date of last visit:Visit date not found Phone #: [phone] (home) [phone] (cell) The patients preferred pharmacy has been captured for this encounter? Yes documented in this encounterS[facility]07-18-2022 History of Present illness Narrative* Marleni Freeman MD - 02/12/2022 10:27 AM EDT Jennifer Manning is a 41 year old female who presents for concerns regarding recurrent UTIs. Patient states she has had approximately 5 UTIs in the last year. Patient brought dates of when she had those. Patient had no growth on multiple cultures that were performed. However the most recent one onJuly 12 she did have positive E. coli in her urine. Patient states the symptoms started the same way she gets up in the middle the night to urinate has sharp pain down her arms and then full-blown UTI. Patient states that the most recent she is passing blood when urinating. Patient is currently on antibiotics. Patient wondering if there is anything she can do to prevent UTIs. Patient states she do es notice a vaginal odor at times. Patient states she only has sex approximately every 2 to 3 months and gets a UTI every time. Pt Is taking D-mannose and other supplements. OB History T1 L3 SAB1 IAB0 Ectopic0 Multiple0 Live Births3 Comment: G1- low fluid, placental infarcts, went into labor, had emergency c/s nonreassuring FHTs, 2 vessel cords G2 SAB, no D&C, early G3- no problems w/ this , scheduled c/s [employer] History LMP: 04/25/2021, IUD Age at Menarche: Age at First : Age at Menopause: D[employer] System History Comments: Sexual Activity: Yes; No partner data on record Contraception: Tubal Ligation PAST MEDICAL HISTORY Diagnosis Date Alopecia Appendicitis, acute 09/09/2020 Asthma exercise induced in high school Crohn's disease (HCC) Low ferritin level 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, 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 Thyroid disease PAST SURGICAL HISTORY Procedure Laterality Date DELIVERY ONLY 10/25/2017 tubal ligation LAP SURG APPENDECTOMY 09/09/2020 PAST SURGICAL HISTORY OF 2 c sects PCHG TUBAL W/ Bilateral 10/25/2017 FAMILY HISTORY Problem Relation Age of Onset Rheumatologic disease Mother Arthritis Mother other (Raynauds) Mother other (mitral valve) Mother Breast Cancer Mother Allergies Sister other (mitral valave) Sister Diabetes Maternal Grandmother Cancer Maternal Grandfather Heart Maternal Grandfather Diabetes Maternal Grandfather Heart Paternal Grandfather Cancer Maternal Aunt breast No Ocular Disease Other Social History Tobacco Use Smoking status: Never Smoker Smokeless tobacco: Never Used Vaping Use Vaping Use: Never used Substance Use Topics Alcohol use: Yes Comment: 2-3 glasses of wine per week, not while Drug use: No Current Outpatient Medications Medication Sig levothyroxine (SYNTHROID) 75 mcg tablet Take 1 tablet by mouth daily before breakfast. citalopram (CELEXA) 20 mg tablet Take 1 tablet by mouth once daily. levonorgestrel (MIRENA) 20 mcg/24 hours (7 yrs) 52 mg IUD 1 Each by INTRAUTERINE route one time only. cyanocobalamin, vitamin B-12, (VITAMIN B-12 SUBLINGUAL) Dissolve under the tongue. Multivitamins-Iron tab Take 1 tablet by mouth once daily. CALCIUM CARBONATE/VITAMIN D3 (CALCIUM + D ORAL) Take by mouth. 2 gummies at bedtime No current facility-administered medications for this visit. Allergies As of Date: 02/12/2022 Allergen Noted Reaction MORPHINE 01/09/2016 Vomiting SEASONAL ALLERGIES 01/09/2016 Other: See Comments Fully Assessed 07/17/2021 REVIEW OF SYSTEMS Abdomen: no pain Bladder: + frequent UTIs.. Expanded ROS: GENERAL: Negative for fever Allergies and current medication updated:Yes EXAM: BP 118/76 Wt 205 lb (93.0kg) LMP 04/25/2021 GENERAL: pleasant, female in no apparent distress HEENT: Normocephalic, atraumatic, mucus membranes moist and no lesions NECK: full range of motion DERMATOLOGY: Normal, without lesions, non-icteric and non-hirsute NEURO: alert and oriented x3,exam grossly non-focal EXTREMITIES: normal ASSESSMENT AND PLAN: Encounter Diagnosis ICD-10-CM 1. Recurrent UTI N39.0 2. Vaginal discharge N89.8 3. Reviewed OTC supplements by [facility]- will start. Reviewed ?? BV- no symptoms currently. Discussed BVsymptoms and UTI. 4. Macrobid for intercourse ordered 5. Pt concerned with weight- discussed adipex in future if desired. 6. Vaginal and vulvar hygiene reviewed, call if no improvement 7. Continue Keflex for current infection I spent a total of 20 minutes on the date of the service which included preparing to see the patient, [id number] patient care, completing clinical documentation, obtaining and/or reviewing separately obtained history, performing a medically appropriate examination, counseling and educating the pat ient/family/caregiver and ordering medications, tests, or procedures Marleni Avendaño MD documented in this encounterS[facility]07-12-2022 Miscellaneous Notes* Telephone Encounter - Luana Alanis RN - 02/06/2022 10:44 AM EDT I talked with patient. She is having dysuria today. She was offered an appointment today with Dr Saleem, declined, Wants to go to urgent care near her. Discussed good perineal hygiene- importance of wiping from front to back especially since she has frequent diarrhea. She would like appointment to roberto gonzalezuss frequent UTI with Dr Freeman. I have given her an appointment for February 12.FYI-call only if further advice documented in this encounterS[facility]07-06-2022 Miscellaneous Notes* Telephone Encounter - Parmjit Eldridge LPN - 01/31/2022 12:36 PM EDT Patient phones requesting refills as follows: Pending Prescriptions Disp Refills LEVOTHYROXINE 75 MCG TABLET 90 tablet 1 Sig: Take 1 tablet by mouth daily before breakfast. NATA: No CITALOPRAM 20 MG TABLET 90 tablet 1 Sig: Take 1 tablet by mouth once daily. NATA: No JESUS 06/14/21 NOV no upcoming appt. Please review and advise. Parmjit Eldridge LPN documented in this [facility]05-30[facility] Evaluation note* Encounter Date Diagnosis Assessment Notes Treatment Notes Treatment Clinical Notes November, Dysuria (ICD-10 - R30.0) November, Acute cystitis with hematuria (ICD-10 - N30.01) Meds as prescribed. Push fluids. Urine sent for culture and pt will be notified of results if any change needs to be made. Advised good hygeine and no sexual activity while on meds. Pt to f/u as needed with pcp for persistent or recurrent sx. Immediate eval in ER for abdominal pain, severe back pain, N/V/D, fever/chills, or severe dehydration. Pt understood and agreed to teatment plan. [employer] Other 01-31-2022 Miscellaneous Notes* Telephone Encounter - Yadi Capone Ma - 08/28/2021 11:24 AM EST See message, Rx pended. Yadi Capone Ma documented in this encounterS[facility]09-21-2017 History of Past illness Narrative* Problem Noted Date Resolved Date with history of section, ante 04/18/2017 12/03/2017 Overview: 04/18/2017 Pt had 2 previous C sections, one in [place] and the other in [facility]. She desires a repeat C section. Patient signed a release of records form to obtain her operative C Section report from [place]. History of delivery, currently 04/18/2017 12/03/2017 Overview: 04/18/2017She had labor and delivery at 36 weeks with her first child. She did not have any labor with her 2nd child and delivered at term. Denies any progesterone injections or cerclage with her pregnancies.Daron signed release form for records from [facility]. TKRN Patient requested diagnostic testing 04/18/2017 12/03/2017 Overview: 04/18/2017Patient desires nuchal ultrasound and Materna 21 testing. TKRN documented as of this encounter (statuses as of 08/28/2021) [facility] History of Past illness Narrative* Problem Noted Date Resolved Date with history of section, ante 04/18/2017 12/03/2017 Overview: 04/18/2017 Pt had 2 previous C sections, one in [place] and the other in [facility]. She desires a repeat C section. Patient signed a release of records form to obtain her operative C Section report from [place]. History of delivery, currently 04/18/2017 12/03/2017 Overview: 04/18/2017She had labor and delivery at 36 weeks with her first child. She did not have any labor with her 2nd child and delivered at term. Denies any progesterone injections or cerclage with her pregnancies.Daron signed release form for records from [facility]. TKRN Patient requested diagnostic testing 04/18/2017 12/03/2017 Overview: 04/18/2017Patient desires nuchal ultrasound and Materna 21 testing. TKRN documented as of this encounter (statuses as of 01/31/2022) [facility] History of Past illness Narrative* Problem Noted Date Resolved Date with history of section, ante 04/18/2017 12/03/2017 Overview: 04/18/2017 Pt had 2 previous C sections, one in [place] and the other in [facility]. She desires a repeat C section. Patient signed a release of records form to obtain her operative C Section report from [place]. History of delivery, currently 04/18/2017 12/03/2017 Overview: 04/18/2017She had labor and delivery at 36 weeks with her first child. She did not have any labor with her 2nd child and delivered at term. Denies any progesterone injections or cerclage with her pregnancies.Daron signed release form for records from [facility]. TKRN Patient requested diagnostic testing 04/18/2017 12/03/2017 Overview: 04/18/2017Patient desires nuchal ultrasound and Materna 21 testing. TKRN documented as of this encounter (statuses as of 02/06/2022) [facility] History of Past illness Narrative* Problem Noted Date Resolved Date with history of section, ante 04/18/2017 12/03/2017 Overview: 04/18/2017 Pt had 2 previous C sections, one in [place] and the other in [facility]. She desires a repeat C section. Patient signed a release of records form to obtain her operative C Section report from [place]. History of delivery, currently 04/18/2017 12/03/2017 Overview: 04/18/2017She had labor and delivery at 36 weeks with her first child. She did not have any labor with her 2nd child and delivered at term. Denies any progesterone injections or cerclage with her pregnancies.Daron signed release form for records from [facility]. TKRN Patient requested diagnostic testing 04/18/2017 12/03/2017 Overview: 04/18/2017Patient desires nuchal ultrasound and Materna 21 testing. TKRN documented as of this encounter (statuses as of 02/12/2022) [facility] History of Past illness Narrative* Problem Noted Date Resolved Date with history of section, ante 04/18/2017 12/03/2017 Overview: 04/18/2017 Pt had 2 previous C sections, one in [place] and the other in [facility]. She desires a repeat C section. Patient signed a release of records form to obtain her operative C Section report from [place]. History of delivery, currently 04/18/2017 12/03/2017 Overview: 04/18/2017She had labor and delivery at 36 weeks with her first child. She did not have any labor with her 2nd child and delivered at term. Denies any progesterone injections or cerclage with her pregnancies.Daron signed release form for records from [facility]. TKRN Patient requested diagnostic testing 04/18/2017 12/03/2017 Overview: 04/18/2017Patient desires nuchal ultrasound and Materna 21 testing. TKRN documented as of this encounter (statuses as of 03/12/2022) [facility] History of Past illness Narrative* Problem Noted Date Resolved Date with history of section, ante 04/18/2017 12/03/2017 Overview: 04/18/2017 Pt had 2 previous C sections, one in [place] and the other in [facility]. She desires a repeat C section. Patient signed a release of records form to obtain her operative C Section report from [place]. History of delivery, currently 04/18/2017 12/03/2017 Overview: 04/18/2017She had labor and delivery at 36 weeks with her first child. She did not have any labor with her 2nd child and delivered at term. Denies any progesterone injections or cerclage with her pregnancies.Daron signed release form for records from [facility]. TKRN Patient requested diagnostic testing 04/18/2017 12/03/2017 Overview: 04/18/2017Patient desires nuchal ultrasound and Materna 21 testing. TKRN documented as of this encounter (statuses as of 03/13/2022) [facility] History of Past illness Narrative* Problem Noted Date Resolved Date with history of section, ante 04/18/2017 12/03/2017 Overview: 04/18/2017 Pt had 2 previous C sections, one in [place] and the other in [facility]. She desires a repeat C section. Patient signed a release of records form to obtain her operative C Section report from [place]. History of delivery, currently 04/18/2017 12/03/2017 Overview: 04/18/2017She had labor and delivery at 36 weeks with her first child. She did not have any labor with her 2nd child and delivered at term. Denies any progesterone injections or cerclage with her pregnancies.Daron signed release form for records from [facility]. TKRN Patient requested diagnostic testing 04/18/2017 12/03/2017 Overview: 04/18/2017Patient desires nuchal ultrasound and Materna 21 testing. TKRN documented as of this encounter (statuses as of 05/22/2022) [facility] of Past illness Narrative* Problem Noted Date Resolved Date with history of section, ante 04/18/2017 12/03/2017 Overview: 04/18/2017 Pt had 2 previous C sections, one in [place] and the other in [facility]. She desires a repeat C section. Patient signed a release of records form to obtain her operative C Section report from [place]. History of delivery, currently 04/18/2017 12/03/2017 Overview: 04/18/2017She had labor and delivery at 36 weeks with her first child. She did not have any labor with her 2nd child and delivered at term. Denies any progesterone injections or cerclage with her pregnancies.Daron signed release form for records from [facility]. TKRN Patient requested diagnostic testing 04/18/2017 12/03/2017 Overview: 04/18/2017Patient desires nuchal ultrasound and Materna 21 testing. TKRN documented as of this encounter (statuses as of 07/27/2022) [facility] History of Past illness Narrative* Problem Noted Date Resolved Date with history of section, ante 04/18/2017 12/03/2017 Overview: 04/18/2017 Pt had 2 previous C sections, one in [place] and the other in [facility]. She desires a repeat C section. Patient signed a release of records form to obtain her operative C Section report from [place]. History of delivery, currently 04/18/2017 12/03/2017 Overview: 04/18/2017She had labor and delivery at 36 weeks with her first child. She did not have any labor with her 2nd child and delivered at term. Denies any progesterone injections or cerclage with her pregnancies.Daron signed release form for records from [facility]. TKRN Patient requested diagnostic testing 04/18/2017 12/03/2017 Overview: 04/18/2017Patient desires nuchal ultrasound and Materna 21 testing. TKRN documented as of this encounter (statuses as of 08/07/2022) [facility] History of Past illness Narrative* Problem Noted Date Resolved Date with history of section, ante 04/18/2017 12/03/2017 Overview: 04/18/2017 Pt had 2 previous C sections, one in [place] and the other in [facility]. She desires a repeat C section. Patient signed a release of records form to obtain her operative C Section report from [place]. History of delivery, currently 04/18/2017 12/03/2017 Overview: 04/18/2017She had labor and delivery at 36 weeks with her first child. She did not have any labor with her 2nd child and delivered at term. Denies any progesterone injections or cerclage with her pregnancies.Daron signed release form for records from [facility]. TKRN Patient requested diagnostic testing 04/18/2017 12/03/2017 Overview: 04/18/2017Patient desires nuchal ultrasound and Materna 21 testing. TKRN documented as of this encounter (statuses as of 08/13/2022) [facility] of Past illness Narrative* Problem Noted Date Resolved Date with history of section, ante 04/18/2017 12/03/2017 Overview: 04/18/2017 Pt had 2 previous C sections, one in [place] and the other in [facility]. She desires a repeat C section. Patient signed a release of records form to obtain her operative C Section report from [place]. History of delivery, currently 04/18/2017 12/03/2017 Overview: 04/18/2017Susi had labor and delivery at 36 weeks with her first child. She did not have any labor with her 2nd child and delivered at term. Denies any progesterone injections or cerclage with her pregnancies.Daron signed release form for records from [facility]. TKRN Patient requested diagnostic testing 04/18/2017 12/03/2017 Overview: 04/18/2017Patient desires nuchal ultrasound and Materna 21 testing. TKRN documented as of this encounter (statuses as of 09/13/2022) [facility] History of Past illness Narrative* Problem Noted Date Resolved Date with history of section, ante 04/18/2017 12/03/2017 Overview: 04/18/2017 Pt had 2 previous C sections, one in [place] and the other in [facility]. She desires a repeat C section. Patient signed a release of records form to obtain her operative C Section report from [place]. History of delivery, currently 04/18/2017 12/03/2017 Overview: 04/18/2017Susi had labor and delivery at 36 weeks with her first child. She did not have any labor with her 2nd child and delivered at term. Denies any progesterone injections or cerclage with her pregnancies.Daron signed release form for records from [facility]. TKRN Patient requested diagnostic testing 04/18/2017 12/03/2017 Overview: 04/18/2017Patient desires nuchal ultrasound and Materna 21 testing. TKRN documented as of this encounter (statuses as of 09/15/2022) [facility] History of Past illness Narrative* Problem Noted Date Resolved Date with history of section, ante 04/18/2017 12/03/2017 Overview: 04/18/2017 Pt had 2 previous C sections, one in [place] and the other in [facility]. She desires a repeat C section. Patient signed a release of records form to obtain her operative C Section report from [place]. History of delivery, currently 04/18/2017 12/03/2017 Overview: 04/18/2017Susi had labor and delivery at 36 weeks with her first child. She did not have any labor with her 2nd child and delivered at term. Denies any progesterone injections or cerclage with her pregnancies.Daron signed release form for records from [facility]. TKRN Patient requested diagnostic testing 04/18/2017 12/03/2017 Overview: 04/18/2017Patient desires nuchal ultrasound and Materna 21 testing. TKRN documented as of this encounter (statuses as of 09/18/2022) [facility] History of Past illness Narrative* Problem Noted Date Resolved Date with history of section, ante 04/18/2017 12/03/2017 Overview: 04/18/2017 Pt had 2 previous C sections, one in [place] and the other in [facility]. She desires a repeat C section. Patient signed a release of records form to obtain her operative C Section report from [place]. History of delivery, currently 04/18/2017 12/03/2017 Overview: 04/18/2017Susi had labor and delivery at 36 weeks with her first child. She did not have any labor with her 2nd child and delivered at term. Denies any progesterone injections or cerclage with her pregnancies.Daron signed release form for records from [facility]. TKRN Patient requested diagnostic testing 04/18/2017 12/03/2017 Overview: 04/18/2017Patient desires nuchal ultrasound and Materna 21 testing. TKRN documented as of this encounter (statuses as of 09/18/2022) [facility] History of Past illness Narrative* Problem Noted Date Resolved Date with history of section, ante 04/18/2017 12/03/2017 Overview: 04/18/2017 Pt had 2 previous C sections, one in [place] and the other in [facility]. She desires a repeat C section. Patient signed a release of records form to obtain her operative C Section report from [place]. History of delivery, currently 04/18/2017 12/03/2017 Overview: 04/18/2017Susi had labor and delivery at 36 weeks with her first child. She did not have any labor with her 2nd child and delivered at term. Denies any progesterone injections or cerclage with her pregnancies.Daron signed release form for records from [facility]. TKRN Patient requested diagnostic testing 04/18/2017 12/03/2017 Overview: 04/18/2017Patient desires nuchal ultrasound and Materna 21 testing. TKRN documented as of this encounter (statuses as of 09/28/2022) [facility] History of Past illness Narrative* Problem Noted Date Resolved Date with history of section, ante 04/18/2017 12/03/2017 Overview: 04/18/2017 Pt had 2 previous C sections, one in [place] and the other in [facility]. She desires a repeat C section. Patient signed a release of records form to obtain her operative C Section report from [place]. History of delivery, currently 04/18/2017 12/03/2017 Overview: 04/18/2017Susi had labor and delivery at 36 weeks with her first child. She did not have any labor with her 2nd child and delivered at term. Denies any progesterone injections or cerclage with her pregnancies.Daron signed release form for records from [facility]. TKRN Patient requested diagnostic testing 04/18/2017 12/03/2017 Overview: 04/18/2017Patient desires nuchal ultrasound and Materna 21 testing. TKRN documented as of this encounter (statuses as of 10/23/2022) [facility] History of Past illness Narrative* Problem Noted Date Resolved Date with history of section, ante 04/18/2017 12/03/2017 Overview: 04/18/2017 Pt had 2 previous C sections, one in [place] and the other in [facility]. She desires a repeat C section. Patient signed a release of records form to obtain her operative C Section report from [place]. History of delivery, currently 04/18/2017 12/03/2017 Overview: 04/18/2017She had labor and delivery at 36 weeks with her first child. She did not have any labor with her 2nd child and delivered at term. Denies any progesterone injections or cerclage with her pregnancies.Daron signed release form for records from [facility]. TKRN Patient requested diagnostic testing 04/18/2017 12/03/2017 Overview: 04/18/2017Patient desires nuchal ultrasound and Materna 21 testing. TKRN documented as of this encounter (statuses as of 10/23/2022) [facility]09-21-2017 History of Past illness Narrative* Problem Noted Date Resolved Date with history of section, ante 04/18/2017 12/03/2017 Overview: 04/18/2017 Pt had 2 previous C sections, one in [place] and the other in [facility]. She desires a repeat C section. Patient signed a release of records form to obtain her operative C Section report from [place]. History of delivery, currently 04/18/2017 12/03/2017 Overview: 04/18/2017She had labor and delivery at 36 weeks with her first child. She did not have any labor with her 2nd child and delivered at term. Denies any progesterone injections or cerclage with her pregnancies.Daron signed release form for records from [facility]. TKRN Patient requested diagnostic testing 04/18/2017 12/03/2017 Overview: 04/18/2017Patient desires nuchal ultrasound and Materna 21 testing. TKRN documented as of this encounter (statuses as of 11/26/2022) [facility]-21-2017 History of Past illness Narrative* Problem Noted Date Resolved Date with history of section, ante 04/18/2017 12/03/2017 Overview: 04/18/2017 Pt had 2 previous C sections, one in [place] and the other in [facility]. She desires a repeat C section. Patient signed a release of records form to obtain her operative C Section report from [place]. History of delivery, currently 04/18/2017 12/03/2017 Overview: 04/18/2017She had labor and delivery at 36 weeks with her first child. She did not have any labor with her 2nd child and delivered at term. Denies any progesterone injections or cerclage with her pregnancies.Daron signed release form for records from [facility]. TKRN Patient requested diagnostic testing 04/18/2017 12/03/2017 Overview: 04/18/2017Patient desires nuchal ultrasound and Materna 21 testing. TKRN documented as of this encounter (statuses as of 01/08/2023) [facility]-21-2017 History of Past illness Narrative* Problem Noted Date Diagnosed Date Resolved Date with history of ce sarean section, antepartum 04/18/2017 12/03/2017 Overview: 04/18/2017 Pt had 2 previous C sections, one in [place] and the other in [facility]. She desires a repeat C section. Patient signed a release of records form to obtain her operative C Section report from [place]. History of delivery, currently 04/18/2017 12/03/2017 Overview: 04/18/2017She had labor and delivery at 36 weeks with her first child. She did not have any labor with her 2nd child and delivered at term. Denies any progesterone injections or cerclage with her pregnancies.Daron signed release form for records from [facility]. TKRN Patient requested diagnostic testing 04/18/2017 12/03/2017 Overview: 04/18/2017Patient desires nuchal ultrasound and Materna 21 testing. TKRN documented as of this encounter (statuses as of 02/21/2023) [facility]-21-2017 History of Past illness Narrative* Problem Noted Date Diagnosed Date Resolved Date with history of ce sarean section, antepartum 04/18/2017 12/03/2017 Overview: 04/18/2017 Pt had 2 previous C sections, one in [place] and the other in [facility]. She desires a repeat C section. Patient signed a release of records form to obtain her operative C Section report from [place]. History of delivery, currently 04/18/2017 12/03/2017 Overview: 04/18/2017She had labor and delivery at 36 weeks with her first child. She did not have any labor with her 2nd child and delivered at term. Denies any progesterone injections or cerclage with her pregnancies.Daron signed release form for records from [facility]. TKRN Patient requested diagnostic testing 04/18/2017 12/03/2017 Overview: 04/18/2017Patient desires nuchal ultrasound and Materna 21 testing. TKRN documented as of this encounter (statuses as of 05/16/2023) [facility]-21-2017 History of Past illness Narrative* Problem Noted Date Diagnosed Date Resolved Date with history of ce sarean section, antepartum 04/18/2017 12/03/2017 Overview: 04/18/2017 Pt had 2 previous C sections, one in [place] and the other in [facility]. She desires a repeat C section. Patient signed a release of records form to obtain her operative C Section report from [place]. History of delivery, currently 04/18/2017 12/03/2017 Overview: 04/18/2017She had labor and delivery at 36 weeks with her first child. She did not have any labor with her 2nd child and delivered at term. Denies any progesterone injections or cerclage with her pregnancies.Daron signed release form for records from [facility]. TKRN Patient requested diagnostic testing 04/18/2017 12/03/2017 Overview: 04/18/2017Patient desires nuchal ultrasound and Materna 21 testing. TKRN documented as of this encounter (statuses as of 09/03/2023) [facility]-2017 History of Past illness Narrative* Problem Noted Date Diagnosed Date Resolved Date with history of ce sarean section, antepartum 04/18/2017 12/03/2017 Overview: 04/18/2017 Pt had 2 previous C sections, one in [place] and the other in [facility]. She desires a repeat C section. Patient signed a release of records form to obtain her operative C Section report from [place]. History of delivery, currently 04/18/2017 12/03/2017 Overview: 04/18/2017She had labor and delivery at 36 weeks with her first child. She did not have any labor with her 2nd child and delivered at term. Denies any progesterone injections or cerclage with her pregnancies.Daron signed release form for records from [facility]. TKRN Patient requested diagnostic testing 04/18/2017 12/03/2017 Overview: 04/18/2017Patient desires nuchal ultrasound and Materna 21 testing. TKRN documented as of this encounter (statuses as of 09/16/2023) [facility]-21-2017 History of Past illness Narrative* Problem Noted Date Diagnosed Date Resolved Date with history of ce sarean section, antepartum 04/18/2017 12/03/2017 Overview: 04/18/2017 Pt had 2 previous C sections, one in [place] and the other in [facility]. She desires a repeat C section. Patient signed a release of records form to obtain her operative C Section report from [place]. History of delivery, currently 04/18/2017 12/03/2017 Overview: 04/18/2017She had labor and delivery at 36 weeks with her first child. She did not have any labor with her 2nd child and delivered at term. Denies any progesterone injections or cerclage with her pregnancies.Daron signed release form for records from [facility]. TKRN Patient requested diagnostic testing 04/18/2017 12/03/2017 Overview: 04/18/2017Patient desires nuchal ultrasound and Materna 21 testing. TKRN documented as of this encounter (statuses as of 10/21/2023) [facility]-2017 History of Past illness Narrative* Problem Noted Date Diagnosed Date Resolved Date with history of ce sarean section, antepartum 04/18/2017 12/03/2017 Overview: 04/18/2017 Pt had 2 previous C sections, one in [place] and the other in [facility]. She desires a repeat C section. Patient signed a release of records form to obtain her operative C Section report from [place]. History of delivery, currently 04/18/2017 12/03/2017 Overview: 04/18/2017She had labor and delivery at 36 weeks with her first child. She did not have any labor with her 2nd child and delivered at term. Denies any progesterone injections or cerclage with her pregnancies.Daron signed release form for records from [facility]. TKRN Patient requested diagnostic testing 04/18/2017 12/03/2017 Overview: 04/18/2017Patient desires nuchal ultrasound and Materna 21 testing. TKRN documented as of this encounter (statuses as of 10/29/2023) [facility]-21-2017 History of Past illness Narrative* Problem Noted Date Diagnosed Date Resolved Date with history of ce sarean section, antepartum 04/18/2017 12/03/2017 Overview: 04/18/2017 Pt had 2 previous C sections, one in [place] and the other in [facility]. She desires a repeat C section. Patient signed a release of records form to obtain her operative C Section report from [place]. History of delivery, currently 04/18/2017 12/03/2017 Overview: 04/18/2017She had labor and delivery at 36 weeks with her first child. She did not have any labor with her 2nd child and delivered at term. Denies any progesterone injections or cerclage with her pregnancies.Daron signed release form for records from [facility]. TKRN Patient requested diagnostic testing 04/18/2017 12/03/2017 Overview: 04/18/2017Patient desires nuchal ultrasound and Materna 21 testing. TKRN documented as of this encounter (statuses as of 10/29/2023) [facility] noteNo assessment information available[facility] Work Phone: Evaluation note* Diagnosis Recurrent UTI- Primary Urinary tract infection, site not specified Vaginal discharge Leukorrhea, not specified as infective documented in this encounter [facility] note* Diagnosis Class 1 obesity with body mass index (BMI) of 34.0 to 34.9 in adult, unspecified obesity type, unspecified whether serious comorbidity present- Primary Unintended weight gain Abnormal weight gain Thyroid disease Unspecified disorder of thyroid [facility] Encounter for screening mammogram for breast cancer documented in this encounter [facility] note* Diagnosis Encounter for gynecological examination (general) (routine) without abnormal findings- Primary Encounter for screening mammogram for malignant neoplasm of breast Other screening mammogram Class 1 obesity with body mass index (BMI) of 30.0 to 30.9 in adult, unspecified obesity type, unspecified whether serious comorbidity present BMI 30.0-30.9,adult Body Mass Index 30.0-30.9, adult [facility]* Diagnosis Hx of iron deficiency anemia- Primary Personal history of diseases of blood and blood-forming organs documented in this encounter [facility] note* Diagnosis Polyarthropathy, inflammatory (HCC)- Primary Unspecified inflammatory polyarthropathy Class 1 obesity without serious comorbidity with body mass index (BMI) of 31.0 to 31.9 in adult, unspecified obesity type Encounter for weight management documented in this encounter [facility] note* Diagnosis Class 1 obesity without serious comorbidity with body mass index (BMI) of 31.0 to 31.9 in adult, unspecified obesity type- Primary Encounter for weight management Encounter for weight loss counseling Dietary surveillance and counseling Other depression Low ferritin Other nonspecific findings on examination of blood Hypothyroidism, unspecified type [facility]* Diagnosis Polyarthropathy, inflammatory (HCC)- Primary Unspecified inflammatory polyarthropathy Hypothyroidism, unspecified type Deficiency anemia Unspecified deficiency anemia Class 1 obesity without serious comorbidity with body mass index (BMI) of 31.0 to 31.9 in adult, unspecified obesity type Encounter for weight management documented in this encounter [facility] note* Diagnosis Hypothyroidism, unspecified type- Primary Polyarthropathy, inflammatory (HCC) Unspecified inflammatory polyarthropathy Hot flashes Symptomatic menopausal or female climacteric states Poor sleep Other migraine without status migrainosus, not intractable Iron deficiency Iron deficiency anemia, unspecified Encounter for vitamin deficiency screening Screening for other and unspecified endocrine, nutritional, metabolic, and immunity disorders Class 1 obesity without serious comorbidity with body mass index (BMI) of 31.0 to 31.9 in adult, unspecified obesity type Encounter for screening for diabetes mellitus Screening for diabetes mellitus Screening, anemia, deficiency, iron Screening for iron deficiency anemia documented in this encounter [facility] note* Diagnosis Malaise and fatigue- Primary Other malaise and fatigue Polyarthropathy, inflammatory (HCC) Unspecified inflammatory polyarthropathy Hypothyroidism, unspecified type Class 1 obesity without serious comorbidity with body mass index (BMI) of 31.0 to 31.9 in adult, unspecified obesity type Other migraine without status migrainosus, not intractable Poor sleep [facility]* Diagnosis Encounter for screening mammogram for breast cancer [facility]* Diagnosis Malaise and fatigue- Primary Other malaise and fatigue Hypothyroidism, unspecified type Polyarthropathy, inflammatory (HCC) Unspecified inflammatory polyarthropathy Other migraine without status migrainosus, not intractable Poor sleep Hot flashes Symptomatic menopausal or female climacteric states Iron deficiency Iron deficiency anemia, unspecified Abnormal uterine bleeding (AUB) IUD (intrauterine device) in place Presence of intrauterine contraceptive device Class 1 obesity without serious comorbidity with body mass index (BMI) of 31.0 to 31.9 in adult, unspecified obesity type Encounter for screening mammogram for malignant neoplasm of breast Other screening mammogram documented in this encounter [facility] note* Diagnosis Anxiety and depression- Primary Dysthymic disorder Thyroid disease Unspecified disorder of thyroid Crohn's disease of colon without complication (HCC) [facility] Diagnosis Abnormal uterine bleeding (AUB)- Primary Adenomyosis of uterus Malpositioned intrauterine device (IUD), initial encounter [facility]* Diagnosis Encounter for screening mammogram for breast cancer documented in this encounter [facility] note* Diagnosis Abnormal uterine bleeding (AUB) IUD (intrauterine device) in place Presence of intrauterine contraceptive device documented in this encounter [facility] note* Diagnosis Encounter for IUD removal- Primary Encounter for removal of intrauterine contraceptive device Encounter for IUD insertion Encounter for insertion of intrauterine contraceptive device Malpositioned intrauterine device (IUD), initial encounter Abnormal uterine bleeding (AUB) Adenomyosis of uterus [facility] Diagnosis Malaise and fatigue- Primary Other malaise and fatigue Hypothyroidism, unspecified type Polyarthropathy, inflammatory (HCC) Unspecified inflammatory polyarthropathy Other migraine without status migrainosus, not intractable Poor sleep Iron deficiency Iron deficiency anemia, unspecified Class 1 obesity without serious comorbidity with body mass index (BMI) of 31.0 to 31.9 in adult, unspecified obesity type Encounter for screening for diabetes mellitus Screening for diabetes mellitus Screening cholesterol level Screening for lipoid disorders Class 1 obesity with body mass index (BMI) of 34.0 to 34.9 in adult, unspecified obesity type, unspecified whether serious comorbidity present documented in this encounter [facility] note* Diagnosis Inappropriately low serum insulin- Primary Polyarthropathy, inflammatory (HCC) Unspecified inflammatory polyarthropathy Hypothyroidism, unspecified type Malaise and fatigue Other malaise and fatigue documented in this encounter [facility] note* Diagnosis Encounter for gynecological examination (general) (routine) without abnormal findings- Primary Encounter for screening mammogram for breast cancer [facility] Diagnosis Inappropriately low serum insulin- Primary documented in this encounter [facility] note* Diagnosis Class 1 obesity with body mass index (BMI) of 34.0 to 34.9 in adult, unspecified obesity type, unspecified whether serious comorbidity present [facility] Diagnosis Malaise and fatigue- Primary Other malaise and fatigue Hypothyroidism, unspecified type Polyarthropathy, inflammatory (HCC) Unspecified inflammatory polyarthropathy Other migraine without status migrainosus, not intractable Poor sleep Iron deficiency Iron deficiency anemia, unspecified Class 1 obesity without serious comorbidity with body mass index (BMI) of 31.0 to 31.9 in adult, unspecified obesity type [facility]* Diagnosis Anxiety and depression Dysthymic disorder documented in this encounter [facility] note* Diagnosis Urinary frequency- Primary Vaginal odor Unspecified symptom associated with female genital organs [facility]* Diagnosis Thyroid disease Unspecified disorder of thyroid [facility]* Diagnosis Malaise and fatigue- Primary Other malaise and fatigue Hypothyroidism, unspecified type Polyarthropathy, inflammatory (HCC) Unspecified inflammatory polyarthropathy Other migraine without status migrainosus, not intractable Poor sleep Iron deficiency Iron deficiency anemia, unspecified Encounter for long-term (current) use of medications Encounter for long-term (current) use of other medications Class 1 obesity with body mass index (BMI) of 34.0 to 34.9 in adult, unspecified obesity type, unspecified whether serious comorbidity present [facility]* Diagnosis Other migraine without status migrainosus, not intractable Poor sleep Class 1 obesity without serious comorbidity with body mass index (BMI) of 31.0 to 31.9 in adult, unspecified obesity type [facility]* Diagnosis Failure to attend appointment with reason given- Primary documented in this encounter [facility] Discharge instructions Additional Instructions Your CT scan showed mild intrahepatic and extreme hepatic biliary duct dilation with gallstones. You have signs of fatty liver on ultrasound with AST of 95 and ALT of 84. You need to follow-up with your GI physician for this. You need to follow-up with general surgery for your gallstones. Follow-up with your AERODYNAMICIST for the 4 .6 x 3.2 large cyst in the right ovary. Return back to the ED if symptoms change or worsen.[facility] Work Phone: Reason for referral (narrative)* Diagnostic Procedure Only (Routine) - Authorized Specialty Diagnoses / Procedures Referred By Contac t Referred To Contact [facility] Diagnoses Encounter for screening mammogram for breast cancer Procedures NEL SCREENING W NURIA SCREENING DIGITAL BREAST TOMOSYNTHESIS BI SCREENING MAMMOGRAPHY BI 2-VIEW BREAST INC CAD PodlogBrenda perez APRN.[employer]IFIC[employer] INSPECTOR [address] [place] [address] [facility] [address] [place] [address] Referral ID Status Reason Start Date Expiration Date Visits Requested Visits Authorized [id number] Authorized Auto-Generat ed Referral 08/17/2023 1 1 [facility] for referral (narrative)* Diagnostic Procedure Only (Routine) - Pending Review Specialty Diagnoses / Procedures Referred By Contac t Referred To Contact [facility] Diagnoses Encounter for screening mammogram for breast cancer Procedures NEL SCREENING W NURIA SCREENING DIGITAL BREAST TOMOSYNTHESIS BI SCREENING MAMMOGRAPHY BI 2-VIEW BREAST INC CAD AgustinlogBrenda perez APRN.ARTIFICIAL TEETH INSPECTOR [address] [place] [address] [facility] [address] [place] [address] Referral ID Status Reason Start Date Expiration Date Visits Requested Visits Authorized [id number] Pending Review Auto-Generat ed Referral 10/16/2023 11/14/2024 1 1 [facility] for referral (narrative)* Diagnostic Procedure Only (Routine) - Pending Review Specialty Diagnoses / Procedures Referred By Contac t Referred To Contact [facility] Diagnoses Encounter for screening mammogram for malignant neoplasm of breast Procedures NEL SCREENING W NURIA SCREENING DIGITAL BREAST TOMOSYNTHESIS BI SCREENING MAMMOGRAPHY BI 2-VIEW BREAST INC CAD Marleni Almonte MD [address] [place] [address] [facility] [address] [place] [address] Referral ID Status Reason Start Date Expiration Date Visits Requested Visits Authorized [id number] Pending Review Auto-Generat ed Referral 10/29/2023 11/27/2024 1 1 * Medication Prior Authorization - Closed Specialty Diagnoses / Procedures Referred By Kaushik stone Referred To Contact Diagnoses Class 1 obesity without serious comorbidity with body mass index (BMI) of 31.0 to 31.9 in adult, unspecified obesity type Marleni Almonte MD [address] [place] [address] Referral ID Status Reason Start Date Expiration Date Visits Re quested Visits Authorized [id number] Closed 1 1 * Diagnostic Procedure Only (Routine) - Authorized Specialty Diagnoses / Procedures Referred By Kaushik stone Referred To Contact [facility]NOTE 3] Diagnoses Abnormal uterine bleeding (AUB) IUD (intrauterine device) in place Procedures PELVIC US WHI US PELVIC NONOBSTETRIC REAL-TIME IMAGE COMPLETE Marleni Almonte MD [address] [place] [address] [facility] [address] [place] [address] Referral ID Status Reason Start Date Expiration Date Visits Requested Visits Authorized [id number] Authorized Auto-Generat ed Referral 10/29/2023 10/28/2024 1 1 [facility] for referral (narrative)* Outpatient Procedure (Routine) - Pending Review Specialty Diagnoses / Procedures Referred By Kaushik stone Referred To Contact [facility]NOTE 3] Diagnoses Malpositioned intrauterine device (IUD), initial encounter Procedures REMOVE INTRAUTERINE DEVICE REMOVE INTRAUTERINE DEVICE Marleni Almonte MD [address] [place] [address] [facility] [address] [place] [address] Referral ID Status Reason Start Date Expiration Date Visits Requested Visits Authorized [id number] Pending Review Auto-Generat ed Referral 11/21/2023 11/20/2024 1 1 * Outpatient Procedure (Routine) - Authorized Specialty Diagnoses / Procedures Referred By Kaushik stone Referred To Contact [facility]NOTE 3] Diagnoses Abnormal uterine bleeding (AUB) Adenomyosis of uterus Encounter for removal of intrauterine contraceptive device Encounter for insertion of intrauterine contraceptive device Procedures INSERT INTRAUTERINE DEVICE LEVONORGESTREL IU 52MG 5 YR INSERT INTRAUTERINE DEVICE REMOVE INTRAUTERINE DEVICE Marleni Almonte MD [address] [place] [address] [facility] [address] [place] [address] Referral ID Status Reason Start Date Expiration Date Visits Requested Visits Authorized [id number] Authorized Auto-Generat ed Referral 11/21/2023 07/28/2024 2 2 [facility] for referral (narrative)* Diagnostic Procedure Only (Routine) - Authorized Specialty Diagnoses / Procedures Referred By Kaushik stone Referred To Contact [facility] Diagnoses Encounter for screening mammogram for breast cancer Procedures NEL SCREENING W NURIA SCREENING DIGITAL BREAST TOMOSYNTHESIS BI SCREENING MAMMOGRAPHY BI 2-VIEW BREAST INC CAD Marleni Almonte MD [address] [place] [address] [facility] [address] [place] [address] Referral ID Status Reason Start Date Expiration Date Visits Requested Visits Authorized [id number] Authorized Auto-Generat ed Referral 03/03/2024 04/02/2025 1 1 [facility] for referral (narrative)No reason for referral information availableWWilson [facility] Work Phone: Reason for visit Narrative* Diagnostic Procedure Only (Routine) - Closed Specialty Diagnoses / Procedures Referred By Kaushik stone Referred To Contact [facility] Diagnoses Encounter for screening mammogram for breast cancer Procedures NEL SCREENING W NURIA SCREENING DIGITAL BREAST TOMOSYNTHESIS BI SCREENING MAMMOGRAPHY BI 2-VIEW BREAST INC CAD PodlogBrenda perez APRN.ARTIFICIAL TEETH INSPECTOR [address] [place] [address] [facility] [address] [place] [address] Referral ID Status Reason Start Date Expiration Date V isits Requested Visits Authorized [id number] Closed Auto-Generate d Referral 10/16/2023 11/14/2024 1 1 [facility] Summary Purpose Family History Mother Name Dates Details Family history of mitral wilbur ve disorder(V17.49, Z82.49) Status:Active Sister Name Dates Details Family history of mitral wilbur ve disorder(V17.49, Z82.49) Status:Active Mother Name Dates Details Family history of mitral wilbur ve disorder(V17.49, Z82.49) Status:Active Sister Name Dates Details Family history of mitral wilbur ve disorder(V17.49, Z82.49) Status:Active Mother Name Dates Details Family history of mitral wilbur ve disorder(V17.49, Z82.49) Status:Active Sister Name Dates Details Family history of mitral wilbur ve disorder(V17.49, Z82.49) Status:Active Mother Name Dates Details Family history of mitral wilbur ve disorder(V17.49, Z82.49) Status:Active Sister Name Dates Details Family history of mitral wilbur ve disorder(V17.49, Z82.49) Status:Active Mother Name Dates Details Family history of mitral wilbur ve disorder(V17.49, Z82.49) Status:Active Sister Name Dates Details Family history of mitral wilbur ve disorder(V17.49, Z82.49) Status:Active Mother Name Dates Details Family history of mitral wilbur ve disorder(V17.49, Z82.49) Status:Active Sister Name Dates Details Family history of mitral wilbur ve disorder(V17.49, Z82.49) Status:Active Mother Name Dates Details Family history of mitral wilbur ve disorder(V17.49, Z82.49) Status:Active Sister Name Dates Details Family history of mitral wilbur ve disorder(V17.49, Z82.49) Status:Active Mother Name Dates Details Family history of mitral wilbur ve disorder(V17.49, Z82.49) Status:Active Sister Name Dates Details Family history of mitral wilbur ve disorder(V17.49, Z82.49) Status:Active Mother Name Dates Details Family history of mitral wilbur ve disorder(V17.49, Z82.49) Status:Active Sister Name Dates Details Family history of mitral wilbur ve disorder(V17.49, Z82.49) Status:Active Advance Directives Advance Directive Response Recorded Date/ Time Do you have a Healthcare Power of Electric Meter Installer Helper? No December 28, 2024 4:20pm Reason for Referral Specialty Diagnoses / Procedures Referred By Contac t Referred To Contact Endocrinology Diagnoses Inappropriately low serum insulin Procedures CONSULT TO ENDOCRINOLOGY OFFICE/OUTPATIENT [facility] 60 MINUTES Marleni Almonte MD [address] [place] [address] Referral ID Status Reason Start Date Expiration Date Visits Requested Visits Authorized [id number] Authorized PCP Requested Referral 02/10/2024 02/06/2025 1 1 Specialty Diagnoses / Procedures Referred By Contac t Referred To Contact Diagnoses Class 1 obesity without serious comorbidity with body mass index (BMI) of 31.0 to 31.9 in adult, unspecified obesity type Marleni Almonte MD [address] [place] [address] Referral ID Status Reason Start Date Expiration Date Visits Re quested Visits Authorized [id number] Closed 1 1 Specialty Diagnoses / Procedures Referred By Kaushik stone Referred To Contact Diagnoses Class 1 obesity with body mass index (BMI) of 34.0 to 34.9 in adult, unspecified obesity type, unspecified whether serious comorbidity present Marleni Almonte MD [address] [place] [address] Referral ID Status Reason Start Date Expiration Date Visits Re quested Visits Authorized [id number] Closed 1 1 Chief Complaint and Reason for Visit Chief Complaint Admit Date ABD PAIN December 28, 2024 3:58p m Chief Complaint Admit Date ABD PAIN December 28, 2024 3:58p m ER F/U - GALLBLADDER January 04, 2025 10:3 2am INT LAB ORDER January 04, 2025 11:50 am Reason for Visit Admit Date Abnormal LFTs January 04, 2025 10:32 am Cholelithiases January 04, 2025 10:32 am Common bile duct dilatation January 04 10:32am Right upper quadrant abdominal pain January 04, 2025 10:32am Abdominal pain, epigastric January 04 10:32am Additional Source Comments INFORMATION SOURCE (unrecogn ized section and content) DATE CREATED AUTHOR 01/22/2018 [facility] DATE CREATED AUTHOR AUTHOR'S ORGANIZ ATION 01/22/2018 [facility] DATE CREATED AUTHOR AUTHOR'S ORGANIZ ATION 11/13/2018 [facility] DATE CREATED AUTHOR AUTHOR'S ORGANIZ ATION 07/05/2020 [facility] DATE CREATED AUTHOR AUTHOR'S ORGANIZ ATION 10/09/2021 [facility] DATE CREATED AUTHOR AUTHOR'S ORGANIZ ATION 10/10/2021 [facility] DATE CREATED AUTHOR AUTHOR'S ORGANIZ ATION 01/05/2022 [facility] DATE CREATED AUTHOR AUTHOR'S ORGANIZ ATION 02/28/2024 [facility] DATE CREATED AUTHOR AUTHOR'S ORGANIZ ATION 01/01/2025 [facility] DATE CREATED AUTHOR AUTHOR'S ORGANIZ ATION 01/09/2025 [facility] <item><item><item> Privacy Markings (unrecogniz ed section and content) Section Author: Joie Styles PROHIBITION ON REDISCLOSURE OF CONFIDENTIAL INFORMATION This notice accompanies a disclosure of information concerning a client made to you with the consent of such client. Section Author: Joie Styles PROHIBITION ON REDISCLOSURE OF CONFIDENTIAL INFORMATION This notice accompanies a disclosure of information concerning a client made to you with the consent of such client. Section Author: Joie Styles PROHIBITION ON REDISCLOSURE OF CONFIDENTIAL INFORMATION This notice accompanies a disclosure of information concerning a client made to you with the consent of such client. Source Comments (unrecognize d section and content) In the event this informatio n is protected by the Federal Confidentiality of Alcohol and Drug Abuse Patient Records regulations: The Federal rules restrict any use of the information to criminally investigate or prosecute any alcohol or drug abuse patient.[facility] the event this information is protected by the Federal Confidentiality of Alcohol and Drug Abuse Patient Records regulations: The Federal rules restrict any use of the information to criminally investigate or prosecute any alcohol or drug abuse patient.[facility] the event this information is protected by the Federal Confidentiality of Alcohol and Drug Abuse Patient Records regulations: The Federal rules restrict any use of the information to criminally investigate or prosecute any alcohol or drug abuse patient.[facility] the event this information is protected by the Federal Confidentiality of Alcohol and Drug Abuse Patient Records regulations: The Federal rules restrict any use of the information to criminally investigate or prosecute any alcohol or drug abuse patient.[facility] the event this information is protected by the Federal Confidentiality of Alcohol and Drug Abuse Patient Records regulations: The Federal rules restrict any use of the information to criminally investigate or prosecute any alcohol or drug abuse patient.[facility] the event this information is protected by the Federal Confidentiality of Alcohol and Drug Abuse Patient Records regulations: The Federal rules restrict any use of the information to criminally investigate or prosecute any alcohol or drug abuse patient.[facility] the event this information is protected by the Federal Confidentiality of Alcohol and Drug Abuse Patient Records regulations: The Federal rules restrict any use of the information to criminally investigate or prosecute any alcohol or drug abuse patient.[facility] the event this information is protected by the Federal Confidentiality of Alcohol and Drug Abuse Patient Records regulations: The Federal rules restrict any use of the information to criminally investigate or prosecute any alcohol or drug abuse patient.[facility] the event this information is protected by the Federal Confidentiality of Alcohol and Drug Abuse Patient Records regulations: The Federal rules restrict any use of the information to criminally investigate or prosecute any alcohol or drug abuse patient.[facility] the event this information is protected by the Federal Confidentiality of Alcohol and Drug Abuse Patient Records regulations: The Federal rules restrict any use of the information to criminally investigate or prosecute any alcohol or drug abuse patient.[facility] the event this information is protected by the Federal Confidentiality of Alcohol and Drug Abuse Patient Records regulations: The Federal rules restrict any use of the information to criminally investigate or prosecute any alcohol or drug abuse patient.[facility] the event this information is protected by the Federal Confidentiality of Alcohol and Drug Abuse Patient Records regulations: The Federal rules restrict any use of the information to criminally investigate or prosecute any alcohol or drug abuse patient.[facility] the event this information is protected by the Federal Confidentiality of Alcohol and Drug Abuse Patient Records regulations: The Federal rules restrict any use of the information to criminally investigate or prosecute any alcohol or drug abuse patient.[facility] the event this information is protected by the Federal Confidentiality of Alcohol and Drug Abuse Patient Records regulations: The Federal rules restrict any use of the information to criminally investigate or prosecute any alcohol or drug abuse patient.[facility] the event this information is protected by the Federal Confidentiality of Alcohol and Drug Abuse Patient Records regulations: The Federal rules restrict any use of the information to criminally investigate or prosecute any alcohol or drug abuse patient.[facility] the event this information is protected by the Federal Confidentiality of Alcohol and Drug Abuse Patient Records regulations: The Federal rules restrict any use of the information to criminally investigate or prosecute any alcohol or drug abuse patient.[facility]ima[facility] the event this information is protected by the Federal Confidentiality of Alcohol and Drug Abuse Patient Records regulations: The Federal rules restrict any use of the information to criminally investigate or prosecute any alcohol or drug abuse patient.[facility] the event this information is protected by the Federal Confidentiality of Alcohol and Drug Abuse Patient Records regulations: The Federal rules restrict any use of the information to criminally investigate or prosecute any alcohol or drug abuse patient.[facility]ima[facility] the event this information is protected by the Federal Confidentiality of Alcohol and Drug Abuse Patient Records regulations: The Federal rules restrict any use of the information to criminally investigate or prosecute any alcohol or drug abuse patient.[facility] the event this information is protected by the Federal Confidentiality of Alcohol and Drug Abuse Patient Records regulations: The Federal rules restrict any use of the information to criminally investigate or prosecute any alcohol or drug abuse patient.[facility] the event this information is protected by the Federal Confidentiality of Alcohol and Drug Abuse Patient Records regulations: The Federal rules restrict any use of the information to criminally investigate or prosecute any alcohol or drug abuse patient.[facility] the event this information is protected by the Federal Confidentiality of Alcohol and Drug Abuse Patient Records regulations: The Federal rules restrict any use of the information to criminally investigate or prosecute any alcohol or drug abuse patient.[facility] the event this information is protected by the Federal Confidentiality of Alcohol and Drug Abuse Patient Records regulations: The Federal rules restrict any use of the information to criminally investigate or prosecute any alcohol or drug abuse patient.[facility] the event this information is protected by the Federal Confidentiality of Alcohol and Drug Abuse Patient Records regulations: The Federal rules restrict any use of the information to criminally investigate or prosecute any alcohol or drug abuse patient.[facility] the event this information is protected by the Federal Confidentiality of Alcohol and Drug Abuse Patient Records regulations: The Federal rules restrict any use of the information to criminally investigate or prosecute any alcohol or drug abuse patient.[facility] the event this information is protected by the Federal Confidentiality of Alcohol and Drug Abuse Patient Records regulations: The Federal rules restrict any use of the information to criminally investigate or prosecute any alcohol or drug abuse patient.[facility] the event this information is protected by the Federal Confidentiality of Alcohol and Drug Abuse Patient Records regulations: The Federal rules restrict any use of the information to criminally investigate or prosecute any alcohol or drug abuse patient.[facility]In the event this information is protected by the Federal Confidentiality of Alcohol and Drug Abuse Patient Records regulations: The Federal rules restrict any use of the information to criminally investigate or prosecute any alcohol or drug abuse patient.[facility]In the event this information is protected by the Federal Confidentiality of Alcohol and Drug Abuse Patient Records regulations: The Federal rules restrict any use of the information to criminally investigate or prosecute any alcohol or drug abuse patient.[facility]In the event this information is protected by the Federal Confidentiality of Alcohol and Drug Abuse Patient Records regulations: The Federal rules restrict any use of the information to criminally investigate or prosecute any alcohol or drug abuse patient.[facility]In the event this information is protected by the Federal Confidentiality of Alcohol and Drug Abuse Patient Records regulations: The Federal rules restrict any use of the information to criminally investigate or prosecute any alcohol or drug abuse patient.[facility] the event this information is protected by the Federal Confidentiality of Alcohol and Drug Abuse Patient Records regulations: The Federal rules restrict any use of the information to criminally investigate or prosecute any alcohol or drug abuse patient.[facility] the event this information is protected by the Federal Confidentiality of Alcohol and Drug Abuse Patient Records regulations: The Federal rules restrict any use of the information to criminally investigate or prosecute any alcohol or drug abuse patient.[facility]In the event this information is protected by the Federal Confidentiality of Alcohol and Drug Abuse Patient Records regulations: The Federal rules restrict any use of the information to criminally investigate or prosecute any alcohol or drug abuse patient.[facility]In the event this information is protected by the Federal Confidentiality of Alcohol and Drug Abuse Patient Records regulations: The Federal rules restrict any use of the information to criminally investigate or prosecute any alcohol or drug abuse patient.[facility]In the event this information is protected by the Federal Confidentiality of Alcohol and Drug Abuse Patient Records regulations: The Federal rules restrict any use of the information to criminally investigate or prosecute any alcohol or drug abuse patient.[facility]In the event this information is protected by the Federal Confidentiality of Alcohol and Drug Abuse Patient Records regulations: The Federal rules restrict any use of the information to criminally investigate or prosecute any alcohol or drug abuse patient.[facility]In the event this information is protected by the Federal Confidentiality of Alcohol and Drug Abuse Patient Records regulations: The Federal rules restrict any use of the information to criminally investigate or prosecute any alcohol or drug abuse patient.[facility]imaIn the event this information is protected by the Federal Confidentiality of Alcohol and Drug Abuse Patient Records regulations: The Federal rules restrict any use of the information to criminally investigate or prosecute any alcohol or drug abuse patient.[facility]imaIn the event this information is protected by the Federal Confidentiality of Alcohol and Drug Abuse Patient Records regulations: The Federal rules restrict any use of the information to criminally investigate or prosecute any alcohol or drug abuse patient.[facility]imaIn the event this information is protected by the Federal Confidentiality of Alcohol and Drug Abuse Patient Records regulations: The Federal rules restrict any use of the information to criminally investigate or prosecute any alcohol or drug abuse patient.[facility]imaIn the event this information is protected by the Federal Confidentiality of Alcohol and Drug Abuse Patient Records regulations: The Federal rules restrict any use of the information to criminally investigate or prosecute any alcohol or drug abuse patient.[facility]In the event this information is protected by the Federal Confidentiality of Alcohol and Drug Abuse Patient Records regulations: The Federal rules restrict any use of the information to criminally investigate or prosecute any alcohol or drug abuse patient.[facility]In the event this information is protected by the Federal Confidentiality of Alcohol and Drug Abuse Patient Records regulations: The Federal rules restrict any use of the information to criminally investigate or prosecute any alcohol or drug abuse patient.[facility]In the event this information is protected by the Federal Confidentiality of Alcohol and Drug Abuse Patient Records regulations: The Federal rules restrict any use of the information to criminally investigate or prosecute any alcohol or drug abuse patient.[facility]In the event this information is protected by the Federal Confidentiality of Alcohol and Drug Abuse Patient Records regulations: The Federal rules restrict any use of the information to criminally investigate or prosecute any alcohol or drug abuse patient.[facility] Care Teams (unrecognized sec tion and content) Engagement Manager Relationship Specialty Start Date End Date Podlogar, Brenda, WAREHOUSE DISTRIBUTION SPECIALIST.ARTIFICIAL TEETH INSPECTOR [address] [place] [address] PCP - General Family Practice 05/15/21 Team Status: Inactive Member Role Status Dates Truman Olguin PA-C Attending Provider Active Engagement Manager Relationship Specialty Start Date End Date Podlogar, Brenda, WAREHOUSE DISTRIBUTION SPECIALIST.ARTIFICIAL TEETH INSPECTOR [address] [place] [address] PCP - General Family Practice 05/15/21 Engagement Manager Relationship Specialty Start Date End Date Podlogar, Brenda, WAREHOUSE DISTRIBUTION SPECIALIST.ARTIFICIAL TEETH INSPECTOR [address] [place] [address] PCP - General Family Practice 05/15/21 Engagement Manager Relationship Specialty Start Date End Date Podlogar, Brenda, WAREHOUSE DISTRIBUTION SPECIALIST.ARTIFICIAL TEETH INSPECTOR [address] [place] [address] PCP - General Family Practice 05/15/21 Engagement Manager Relationship Specialty Start Date End Date Podlogar, Brenda, WAREHOUSE DISTRIBUTION SPECIALIST.ARTIFICIAL TEETH INSPECTOR [address] [facility] [place] [address] PCP - General Family Practice 05/15/21 Engagement Manager Relationship Specialty Start Date End Date Podlogar, Brenda, WAREHOUSE DISTRIBUTION SPECIALIST.ARTIFICIAL TEETH INSPECTOR [address] [facility] [place] [address] PCP - General Family Medicine 05/15/21 Engagement Manager Relationship Specialty Start Date End Date Podlogar, Brenda, WAREHOUSE DISTRIBUTION SPECIALIST.ARTIFICIAL TEETH INSPECTOR [address] [facility] [place] [address] PCP - General Family Medicine 05/15/21 Engagement Manager Relationship Specialty Start Date End Date Podlogar, Brenda, WAREHOUSE DISTRIBUTION SPECIALIST.ARTIFICIAL TEETH INSPECTOR [address] [facility] [place] [address] PCP - General Family Medicine 05/15/21 Engagement Manager Relationship Specialty Start Date End Date Podlogar, Brenda, WAREHOUSE DISTRIBUTION SPECIALIST.ARTIFICIAL TEETH INSPECTOR [address] [facility] [place] [address] PCP - General Family Medicine 05/15/21 Engagement Manager Relationship Specialty Start Date End Date Podlogar, Brenda, WAREHOUSE DISTRIBUTION SPECIALIST.ARTIFICIAL TEETH INSPECTOR [address] [facility] [place] [address] PCP - General Family Medicine 05/15/21 Engagement Manager Relationship Specialty Start Date End Date Podlogar, Brenda, WAREHOUSE DISTRIBUTION SPECIALIST.ARTIFICIAL TEETH INSPECTOR [address] [facility] [place] [address] PCP - General Family Medicine 05/15/21 Engagement Manager Relationship Specialty Start Date End Date Podlogar, Brenda, WAREHOUSE DISTRIBUTION SPECIALIST.ARTIFICIAL TEETH INSPECTOR [address] [facility] [place] [address] PCP - General Family Medicine 05/15/21 Engagement Manager Relationship Specialty Start Date End Date Podlogar, Brenda, WAREHOUSE DISTRIBUTION SPECIALIST.ARTIFICIAL TEETH INSPECTOR [address] [facility] [place] [address] PCP - General Family Medicine 05/15/21 Engagement Manager Relationship Specialty Start Date End Date Podlogar, , WAREHOUSE DISTRIBUTION SPECIALIST.ARTIFICIAL TEETH INSPECTOR [address] [facility] [place] [address] PCP - General Family Medicine 05/15/21 Engagement Manager Relationship Specialty Start Date End Date Podlogar, , WAREHOUSE DISTRIBUTION SPECIALIST.ARTIFICIAL TEETH INSPECTOR [address] [facility] [place] [address] PCP - General Family Medicine 05/15/21 Engagement Manager Relationship Specialty Start Date End Date Podlogar, , WAREHOUSE DISTRIBUTION SPECIALIST.ARTIFICIAL TEETH INSPECTOR [address] [place] [address] PCP - General Family Medicine 05/15/21 Engagement Manager Relationship Specialty Start Date End Date Podlogar, , WAREHOUSE DISTRIBUTION SPECIALIST.ARTIFICIAL TEETH INSPECTOR [address] [facility] [place] [address] PCP - General Family Medicine 05/15/21 Engagement Manager Relationship Specialty Start Date End Date Podlogar, , WAREHOUSE DISTRIBUTION SPECIALIST.ARTIFICIAL TEETH INSPECTOR [address] [facility] [place] [address] PCP - General Family Medicine 05/15/21 Engagement Manager Relationship Specialty Start Date End Date Podlogar, , WAREHOUSE DISTRIBUTION SPECIALIST.ARTIFICIAL TEETH INSPECTOR [address] [facility] [place] [address] PCP - General Family Medicine 05/15/21 Engagement Manager Relationship Specialty Start Date End Date Podlogar, , WAREHOUSE DISTRIBUTION SPECIALIST.ARTIFICIAL TEETH INSPECTOR [address] [facility] [place] [address] PCP - General Family Medicine 05/15/21 Engagement Manager Relationship Specialty Start Date End Date Podlogar, , WAREHOUSE DISTRIBUTION SPECIALIST.ARTIFICIAL TEETH INSPECTOR [address] [facility] [place] [address] PCP - General Family Medicine 05/15/21 Engagement Manager Relationship Specialty Start Date End Date Podlogar, , WAREHOUSE DISTRIBUTION SPECIALIST.ARTIFICIAL TEETH INSPECTOR [address] [facility] [place] [id number] PCP - General Family Medicine 05/15/21 Engagement Manager Relationship Specialty Start Date End Date Podlogar, , WAREHOUSE DISTRIBUTION SPECIALIST.ARTIFICIAL TEETH INSPECTOR [address] [facility] [place] [address] PCP - General Family Medicine 05/15/21 Engagement Manager Relationship Specialty Start Date End Date Podlogar, , WAREHOUSE DISTRIBUTION SPECIALIST.ARTIFICIAL TEETH INSPECTOR [address] [facility] [place] [address] PCP - General Family Medicine 05/15/21 Engagement Manager Relationship Specialty Start Date End Date Podlogar, , WAREHOUSE DISTRIBUTION SPECIALIST.ARTIFICIAL TEETH INSPECTOR [address] [facility] [place] [address] PCP - General Family Medicine 05/15/21 Engagement Manager Relationship Specialty Start Date End Date Podlogar, , WAREHOUSE DISTRIBUTION SPECIALIST.ARTIFICIAL TEETH INSPECTOR [address] [facility] [place] [address] PCP - General Family Medicine 05/15/21 Engagement Manager Relationship Specialty Start Date End Date Podlogar, , WAREHOUSE DISTRIBUTION SPECIALIST.ARTIFICIAL TEETH INSPECTOR [address] [facility] [place] [address] PCP - General Family Medicine 05/15/21 Engagement Manager Relationship Specialty Start Date End Date Podlogar, , WAREHOUSE DISTRIBUTION SPECIALIST.ARTIFICIAL TEETH INSPECTOR [address] [facility] [place] [address] PCP - General Family Medicine 05/15/21 Engagement Manager Relationship Specialty Start Date End Date Podlogar, , WAREHOUSE DISTRIBUTION SPECIALIST.ARTIFICIAL TEETH INSPECTOR [address] [facility] [place] [address] PCP - General Family Medicine 05/15/21 Engagement Manager Relationship Specialty Start Date End Date Podlogar, , WAREHOUSE DISTRIBUTION SPECIALIST.ARTIFICIAL TEETH INSPECTOR [address] [facility] [place] [address] PCP - General Family Medicine 05/15/21 Engagement Manager Relationship Specialty Start Date End Date Podlogar, , WAREHOUSE DISTRIBUTION SPECIALIST.ARTIFICIAL TEETH INSPECTOR [address] [facility] [place] [address] PCP - General Family Medicine 05/15/21 Engagement Manager Relationship Specialty Start Date End Date Podlogar, , WAREHOUSE DISTRIBUTION SPECIALIST.ARTIFICIAL TEETH INSPECTOR [address] [facility] [place] [address] PCP - General Family Medicine 05/15/21 Engagement Manager Relationship Specialty Start Date End Date Podlogar, , WAREHOUSE DISTRIBUTION SPECIALIST.ARTIFICIAL TEETH INSPECTOR [address] [facility] [place] [address] PCP - General Family Medicine 05/15/21 Engagement Manager Relationship Specialty Start Date End Date Podlogar, , WAREHOUSE DISTRIBUTION SPECIALIST.ARTIFICIAL TEETH INSPECTOR [address] [facility] [place] [address] PCP - General Family Medicine 05/15/21 Engagement Manager Relationship Specialty Start Date End Date Podlogar, , WAREHOUSE DISTRIBUTION SPECIALIST.ARTIFICIAL TEETH INSPECTOR [address] [facility] [place] [address] PCP - General Family Medicine 05/15/21 Engagement Manager Relationship Specialty Start Date End Date Podlogar, , WAREHOUSE DISTRIBUTION SPECIALIST.ARTIFICIAL TEETH INSPECTOR [address] [facility] [place], [place] [address] PCP - General Family Medicine 05/15/21 Engagement Manager Relationship Specialty Start Date End Date Podlogar, Brenda, WAREHOUSE DISTRIBUTION SPECIALIST.ARTIFICIAL TEETH INSPECTOR [address] [facility] [place], [place] [address] PCP - General Family Medicine 05/15/21 Engagement Manager Relationship Specialty Start Date End Date Podlogar, Brenda, WAREHOUSE DISTRIBUTION SPECIALIST.ARTIFICIAL TEETH INSPECTOR [address] [facility] [place], [place] [address] PCP - General Family Medicine 05/15/21 Team Status: Active Member Role Status Dates Brenda Podlogar MYCOLOGIST, MYCOLOGIST-C Primary Care Provider Active Team Status: Inactive Member Role Status Dates Brenda Podlogchris MYCOLOGIST, MYCOLOGIST-C Primary Care Provider Active Start: December 28, 2024 End: December 28, 2024 Dr. Moises Mtz , DO Emergency Provider Activ e Start: December 28, 2024 End: December 28, 2024 Engagement Manager Relationship Specialty Start Date End Date Yo Alvarenga MD [address] [place], [place] [address] PCP - General Family Medicine 12/29/24 Team Status: Inactive Member Role Status Dates Brenda Velezlogchris MYCOLOGIST, MYCOLOGIST-C Primary Care Provider Active Start: December 28, 2024 End: December 28, 2024 Dr. Moises Mtz , DO Attending Provider Activ e Start: December 28, 2024 End: December 28, 2024 Dr. Moises Mtz , DO Emergency Provider Activ e Start: December 28, 2024 End: December 28, 2024 Team Status: Inactive Member Role Status Dates Brenda Podlogar MYCOLOGIST, MYCOLOGIST-C Primary Care Provider Active Start: January 04, 2025 End: January 04, 2025 Brenda Velezlogchris MYCOLOGIST, MYCOLOGIST-C Referring Provider Active Start: January 04, 2025 End: January 04, 2025 Dr. Yaw Sandhu MD Attending Provider Active Start: January 04, 2025 End: January 04, 2025 Team Status: Active Member Role Status Dates Brenda Roy NP MYCOLOGIST-C Primary Care Provider Active Start: January 04, 2025 Dr. Yaw Sandhu MD Attending Provider Active Start: January 04, 2025 Dr. Yaw Sandhu MD Referring Provider Active Start: January 04, 2025 Team Status: Inactive Member Role Status Dates Brenda Roy NP MYCOLOGIST-C Primary Care Provider Active Start: January 04, 2025 End: January 04, 2025 Dr. Yaw Sandhu MD Attending Provider Active Start: January 04, 2025 End: January 04, 2025 Dr. Yaw Sandhu MD Referring Provider Active Start: January 04, 2025 End: January 04, 2025 Engagement Manager Relationship Specialty Start Date End Date Yo Alvarenga MD [address] [place] [address] PCP - General Family Medicine 12/29/24 Goals (unrecognized section and content) Goals may be documented in a n alternate sectionNo InformationGoals may be documented in an alternate sectionGoals may be documented in an alternate sectionGoals may be documented in an alternate section REASON FOR VISIT (unrecogniz ed section and content) Reason Onset Date Comments Refill Request 01/31/2022 Reason Comments Uti - Re-occurring Reason Onset Date Comments Refill Request 03/12/2022 Reason Onset Date Comments Refill Request 03/13/2022 Reason Comments Medication Follow-up Reason Onset Date Comments Refill Request 08/07/2022 Reason Comments Refill Request Reason Comments Yearly Exam Reason Comments Results Reason Comments Appointment Reason Comments Follow Up Wt management follow up Reason Comments Insurance Authorization Reason Comments Weight Management Reason Comments Weight Management Reason Onset Date Comments Refill Request 09/14/2023 Reason Comments Weight Management Reason Comments Recheck Medications Reason Comments Appointment Reason Comments DUB Specialty Diagnoses / Procedures Referred By Contac t Referred To Contact [facility] Diagnoses Abnormal uterine bleeding (AUB) IUD (intrauterine device) in place Procedures PELVIC US WHI US PELVIC NONOBSTETRIC REAL-TIME IMAGE COMPLETE Marleni Almonte MD [address] [place] [address] [facility] [address] [place] [address] Referral ID Status Reason Start Date Expiration Date V isits Requested Visits Authorized [id number] Closed Auto-Generate d Referral 10/29/2023 10/28/2024 1 1 Reason Onset Date Comments IUD Removal 11/26/2023 Insertion Of IUD 11/26/2023 Specialty Diagnoses / Procedures Referred By Kaushik stone Referred To Contact [facility]NOTE 3] Diagnoses Abnormal uterine bleeding (AUB) Adenomyosis of uterus Encounter for removal of intrauterine contraceptive device Encounter for insertion of intrauterine contraceptive device Procedures INSERT INTRAUTERINE DEVICE LEVONORGESTREL IU 52MG 5 YR INSERT INTRAUTERINE DEVICE REMOVE INTRAUTERINE DEVICE Marleni Almonte MD [address] [place] [address] [facility] [address] [place] [id number] Referral ID Status Reason Start Date Expiration Date Visits Requested Visits Authorized [id number] Authorized Auto-Generat ed Referral 11/21/2023 07/28/2024 2 2 Reason Comments Question Reason Comments Well Woman Reason Comments New Patient Evaluation Low serum insulin Specialty Diagnoses / Procedures Referred By Kaushik stone Referred To Contact Endocrinology Diagnoses Inappropriately low serum insulin Procedures CONSULT TO ENDOCRINOLOGY OFFICE/OUTPATIENT NEW HIGH MDM 60 MINUTES Marleni Almonte MD [address] [place] [address] Referral ID Status Reason Start Date Expiration Date V isits Requested Visits Authorized [id number] Closed PCP Requested Referral 02/10/2024 02/06/2025 1 1 Reason Onset Date Comments Refill Request 06/12/2024 Reason Comments Urinary Problem Nausea, frequency x 3 days Reason Onset Date Comments Refill Request 08/09/2024 FOR RECORDS PERTAINING TO PATIENTS WHO ARE OR HAVE BEEN ENROLLED IN A CHEMICAL DEPENDENCY/SUBSTANCEABUSE PROGRAM, SOME INFORMATION MAY BE OMITTED. This clinical summary was aggregated from multiple sources. Caution should be exercised in using it in the provision of clinical care. This summary normalizes information from multiple sources, and as a consequence, information in this document may materially change the coding, format and clinical context of patient data. In addition, data may be omitted in some cases. CLINICAL DECISIONS SHOULD BE BASED ON THE PRIMARY CLINICAL RECORDS. [facility]. provides no warranty or guarantee of the accuracy or completeness of information in this document.
[2025-01-12 05:38] VITALS: BP 128/82; PULSE 75; RESP 18; TEMP 36.9; O2SAT 100
[2025-01-12 05:48] LABS: Absolute Lymphocyte Count 1.87 X10^3/uL (0.83-4.51); Absolute Neutrophil Count 5.1 X10^3/uL (2.0-7.7); Basophil# 0.06 X10^3/uL; Basophil% 0.7 % (0-1); Eosinophil# 0.56 X10^3/uL; Eosinophils% 6.8 % (0-5); Hematocrit 36.4 % (37-47); Hemoglobin 12.6 g/dL (12.0-15.0); Lymphocyte # 1.87 X10^3/ul (0.83-4.51); Lymphocyte % 22.8 % (19-41); Mean Corp Hgb Conc 34.6 g/dL (32-36); Mean Corpuscular Hgb 30.5 pg (27.0-32.0); Mean Corpuscular Volume 88.1 fL (81-99); Monocyte# 0.59 X10^3/uL; Monocyte% 7.2 % (0-10); NRBC Flagged by Analyzer 0 % (0-5); Neutrophil # 5.11 X10^3/uL (2.7-7.7); Neutrophil % 62.3 % (47-70); Platelet Count 339 K/mm3 (150-450); RBC Distribution Width CV 12.8 % (11.6-14.6); RBC Distribution Width SD 41.5 fl (35.1-43.9); Red Blood Count 4.13 M/mm3 (4.2-5.4); White Blood Count 8.2 K/mm3 (4.4-11.0)
[2025-01-12] MEDS: HYDROmorphone 1 MG/ML Syringe IV ×2 (05:56→08:48)
[2025-01-12] MEDS: Ondansetron 4 MG/2 ML Vial IV (05:56)
[2025-01-12] MEDS: 0.9% Normal Saline (1000mL) 1,000 ML 999 ML IV (05:56)
[2025-01-12 06:00] VITALS: BP 128/82; PULSE 75; RESP 18; TEMP 36.9; O2SAT 100
[2025-01-12 06:06] LABS: AST(SGOT) 17 U/L (<=31); Alanine Aminotransfer ALT/SGPT 24 U/L (<=34); Albumin, Serum 4.1 g/dL (3.5-5.0); Alkaline Phosphatase 93 U/L (35-104); Anion Gap 10 (5-15); BUN 12 mg/dL (4-19); BUN/Creat Ratio 17.9 RATIO (10-20); Bilirubin, Direct 0.17 mg/dL (0.00-0.30); Calcium,Total 8.7 mg/dL (7.6-11.0); Carbon Dioxide 23.2 mmol/L (21.0-32.0); Chloride 103 mmol/L (98-108); Creatinine, Serum 0.64 mg/dL (0.70-1.20); EST Glomerular Filtration Rate 111 (>60); Estimated Creatinine Clearance 119.83 ml/min (50-250); Globulin 3.9 g/dL (2.2-4.2); Glucose 93 mg/dL (70-99); Lipase 45 U/L (13-75); Potassium 3.5 mmol/L (3.3-5.1); Sodium Level 136 mmol/L (133-145)
--- NOTE | 2025-01-12 07:15 | US_ITS ---
PROCEDURE: ABDOMEN LIMITED 01/12/2025 REASON FOR EXAM: RUQ PAIN TECHNIQUE: ABDOMEN LIMITED COMPARISON: 12/28/2024. FINDINGS: Liver: Unremarkable hepatic echotexture. 16.8 cm. Unremarkable flow in the portal vein. Gallbladder: Diffuse thickening of the wall of the gallbladder measuring 9 mm (previously 7 mm). Positive sonographic Kmaara. Multiple gallstones are noted. No evidence of pericholecystic free fluid on the current exam. Common bile duct: Dilated measuring 10 mm. Pancreas: Limited evaluation of the pancreatic tail secondary to overlying bowel gas. Kidneys: The right kidney measures 10.6 x 5.7 x 4.8 cm. Right renal cortical thickness measuring 2 cm. US/Abdomen Limited IMPRESSION: Cholelithiasis. Diffuse thickening of the wall of the gallbladder. Positive sonographic Kamara. Findings are probably unchanged since the prior exam. Acute cholecystitis fartun ins in the differential diagnosis although felt less likely due to under distention of the gallbladder on the current exam. Th is needs clinical evaluation and follow-up. Dilated common bile duct, increased. Reading Location[facility]
[2025-01-12 07:59] VITALS: BP 111/68; PULSE 75; RESP 16; TEMP 36.8; O2SAT 99
--- NOTE | 2025-01-12 08:23 | EX.ED.DYSGE1 ---
HPI History of Present Illness Chief Complaint: Abd Pain Informant: patient and spouse/S.O. Narrative Narrative: Patient is a 44-year-old female with past medical history of hypothyroidism and Crohn's disease. She was recently admitted to the hospital secondary to abdominal pain. At that time she was found to have gallstones and states she is scheduled to have her gallbladder removed in 2 days. She states that yesterday throughout the day she had persistent right mid upper abdominal pain. She states that it worsened overnight and despite taking medication there was no improvement. Patient has concerned that she may need her gallbladder out sooner as the pain has worsened and secondary to this presents for evaluation. [facility] Medical History (Updated 01/14/25 @ 06:[address] Andrez Mendez, DO) Arthritis Thyroid disease Blood clot in eye History of Crohn's disease Hypothyroid Non-smoker History of echocardiogram Cholelithiases Crohn's disease Home Medications ?Medication ?Instructions ?Recorded ?Last Taken ?Type citalopram 20 mg tablet 20 mg PO DAILY 09/09/20 12/27/24 History levothyroxine 75 mcg tablet 75 mcg PO DAILY 09/09/20 12/27/24 History d-mannose 500 mg chewable tablet 500 mg PO DAILY 12/28/24 12/27/24 History (AZO D-Mannose) mecobalamin (vitamin B12) 1,000 1,000 mcg PO DAILY 12/28/24 12/27/24 History mcg chewable tablet multivitamin (Daily Multi-Vitamin 1 tab PO DAILY 12/28/24 12/27/24 History tablet) phentermine 37.5 mg capsule 37.5 mg PO DAILY 12/28/24 01/04/25 History topiramate 50 mg tablet 50 mg PO DAILY 12/28/24 01/04/25 History ondansetron 4 mg disintegrating 4 mg PO TID PRN nausea and 01/12/25 Unknown Rx tablet vomiting #21 tabs oxycodone 5 mg tablet 5 mg PO Q6H PRN pain 3 days #12 01/12/25 Unknown Rx tabs Allergy/AdvReac Type Severity Reaction Status Date / Time grass pollen Allergy Other Verified 01/12/25 04:36 morphine AdvReac Nausea Verified 01/12/25 04:36 Family History no significant family his Surgical History History of esophagogastroduodenoscopy (EGD) History of colonoscopy History of appendectomy History of Social History Smoking Status: Never smoker ROS ROS ED Constitutional Constitutional ED: Denies chills or fever(s) Eyes Eyes: Denies change in vision ENT ENT ED: Denies sore throat Cardiovascular Cardiovascular: Denies chest pain Respiratory/Chest Respiratory/Chest: Denies cough or dyspnea Gastrointestinal Gastrointestinal: Reports abdominal pain and nausea; Denies diarrhea or vomiting Genitourinary Genitourinary ED: Denies dysuria or hematuria Musculoskeletal Musculoskeletal: Denies back pain or myalgias Integumentary Denies rash Neurologic Neurologic: Denies headache(s) Hematologic/Lymphatic Hematologic/Lymphatic: Denies easy bleeding or easy bruising EXAM Physical Exam Const Vital Signs: 01/12/25 04:36 01/12/25 04:38 01/12/25 05:38 Temperature 98.4 F 98.4 F 98.4 F Temperature Source Oral Oral Oral Pulse Rate 71 60 75 Respiratory Rate 16 16 18 Blood Pressure 138/85 H 138/85 H 128/82 H Blood Pressure Mean 102 102 97 Pulse Ox 100 100 100 Oxygen Delivery Method Room Air Room Air Room Air 01/12/25 06:00 01/12/25 07:59 Temperature 98.4 F 98.2 F Temperature Source Oral Oral Pulse Rate 75 75 Respiratory Rate 18 16 Blood Pressure 128/82 H 111/68 Blood Pressure Mean 97 82 Pulse Ox 100 99 Oxygen Delivery Method Room Air Room Air Positive well nourished and well developed General Appearance ED: well developed; Negative for pallor HEENT HEENT Narrative: Normocephalic atraumatic Eyes PERRL and EOMs intact bilaterally General Eye ED: Negative for scleral icterus Neck supple Neck Narrative: No nuchal rigidity or meningeal signs Resp normal respiratory effort and clear to auscultation bilaterally Cardio regular rate and regular rhythm Rate: other Other Details: Heart is regular rate and rhythm without murmurs rubs or gallop Radial and carotid pulses are equal and symmetric GI non-distended and no masses GI Narrative: Abdomen is soft and nondistended with normal active bowel sounds. There is pain with palpation in the midepigastric and right upper quadrant region but greatest in the right upper quadrant region. No voluntary guarding or rigidity. No pulsatile mass or fluid wave. Negative Kamara sign. Auscultation: normoactive bowel sounds Palpation: soft Back/Spine no CVA tenderness Extremity normal to inspection Neuro oriented x3, CN's II-XII intact bilaterally and no sensory deficits noted Sensorium / Orientation: alert Motor Exam: strength 5/5 throughout Psych mental status grossly normal Skin no rashes or lesions noted and no wounds General Skin Exam: Negative for jaundice or pallor MDM MDM MDM Narrative Medical decision making narrative: Patient arrived to the ER with stable vitals. She has known gallbladder dysfunction but with her worsening pain there is concern for biliary colic versus acute cholecystitis versus gallstone pancreatitis. Secondary to this basic labs were obtained and I did elect to perform a repeat ultrasound. Labs revealed no clinically significant findings in her liver enzymes which chart review reveals were recently elevated are now within normal limits. Ultrasound showed a relatively unchanged gallbladder with gallstones. It discussed that acute cholecystitis remains in the differential but was felt to be less likely based on a contracted gallbladder. The patient is afebrile there is no leukocytosis or left shift and her liver enzymes have normalized indicating that this is most likely not acute cholecystitis. However based on this read and her increased pain I discussed the case with the general surgeon who is scheduled to remove her gallbladder Dr. Sandhu. He reviewed the patient's workup in the ER today and agrees that with her stable vitals and improvement of laboratory values and the fact her gallbladder ultrasound has remained stable that there is no need for admission at this time and that the patient can be discharged with plan to continue to have her surgery on . This plan of care was discussed with the patient and who are agreeable to it and therefore should be discharged home at this time with symptomatic care History & Record Review Discussion w/independent historian: Patient and Significant other Lab Data Attestation: I reviewed the patient's lab results. Labs: Laboratory Results - last 24 hr 01/12/25 04:40 WBC 8.2 RBC 4.13 L Hgb 12.6 Hct 36.4 L MCV 88.1 MCH 30.5 MCHC 34.6 RDW Std Deviation 41.5 RDW Coeff of Avery 12.8 Plt Count 339 MPV 9.0 Immature Gran % (Auto) 0.200 Neut % (Auto) 62.3 Lymph % (Auto) 22.8 [place] % (Auto) 7.2 Eos % (Auto) 6.8 H Baso % (Auto) 0.7 Absolute Neuts (auto) 5.1 Absolute Lymphs (auto) 1.87 Nucleated RBC % 0 Sodium 136 Potassium 3.5 Chloride 103 Carbon Dioxide 23.2 Anion Gap 10 BUN 12 Creatinine 0.64 L Estim Creat Clear Calc 119.83 Est GFR (MDRD) Non-Af 111 BUN/Creatinine Ratio 17.9 Glucose 93 Calcium 8.7 Total Bilirubin 0.40 Direct Bilirubin 0.17 AST 17 ALT 24 Alkaline Phosphatase 93 Total Protein 8.0 Albumin 4.1 Globulin 3.9 Lipase 45 Radiography Diagnostic Testing: Clinical Impression(s) from Imaging Studies Abdomen Ultrasound 01/12/25 07:15 IMPRESSION: Cholelithiasis. Diffuse thickening of the wall of the gallbladder. Positive sonographic Kamara. Findings are probably unchanged since the prior exam. Acute cholecystitis remains in the differential diagnosis although felt less likely due to under distention of the gallbladder on the current exam. This needs clinical evaluation and follow-up. Dilated common bile duct, increased. Reading Location: [place] [address] Management Discussion w/another healthcare provider: [facility] Agent Discharge Plan Triage Chief Complaint: Abd Pain ED Provider: Andrez Mendez Dx/Rx/DC Orders Clinical Impression: Cholelithiases, Biliary colic, Crohn's disease, Hypothyroidism Instructions: Gallstones Dc Prescriptions: New oxycodone 5 mg tablet 5 mg PO Q6H PRN (Reason: pain) 3 Days Qty: 12 0RF ondansetron 4 mg tablet,disintegrating 4 mg PO TID PRN (Reason: nausea and vomiting) Qty: 21 0RF No Action levothyroxine 75 MCG tablet 75 mcg PO DAILY citalopram 20 MG tablet 20 mg PO DAILY phentermine 37.5 mg capsule 37.5 mg PO DAILY topiramate 50 mg tablet 50 mg PO DAILY multivitamin [Daily Multi-Vitamin] Tablet 1 tab PO DAILY mecobalamin (vitamin B12) 1,000 mcg tablet,chewable 1,000 mcg PO DAILY AZO D-Mannose 500 mg tablet,chewable 500 mg PO DAILY Primary Care Provider: Brenda Roy NP Referrals: Yaw Sandhu MD [Med Staff - Active Staff] - Podlogar,Brenda POWER PLANT OPERATOR APPRENTICE, POWER PLANT OPERATOR APPRENTICE-C [Primary Care Provider] - Activity Restrictions/Additional Instructions: Please eat a bland diet with smaller portions to help prevent reoccurrence of pain. Take the prescribed medications as directed to help control symptoms. Keep your appointment for your gallbladder removal in 2 days. However if you develop a temperature/fever of 100.4 or higher or your pain is not at a bearable level with the prescribed medication please return to the hospital for repeat evaluation Print Language: Wallisian Disposition Disposition: Home, Self Care Discharge Date/Time: 01/12/25 09:10
[2025-01-12] MEDS: oxyCODONE 5 MG Tablet PO (08:30)
[2025-01-12 08:49] VITALS: BP 129/76; PULSE 62; RESP 16; TEMP 36.8; O2SAT 99
== END 2025-01-12 09:10 | disposition home or self-care (01) ==
PROVIDERS: Emergency Provider Emergency Medicine; PCP Nurse Practitioner Primary Care; Visit Provider Emergency Medicine
DX: K80.20 Calculus of gallbladder without cholecystitis without obstruction (principal); K50.90 Crohn's disease, unspecified, without complications; E03.9 Hypothyroidism, unspecified
CPT/HCPCS: 76705; 80048; 80076; 83690; 85025; 96361; 96374; 96375; 96376; 99282; A4216; J2405

== ENCOUNTER 2025-01-14 06:00 | Day surgery (SDC) | payer OTHER, SELFPAY ==
[2025-01-14] VITALS (16 sets, daily range): BP systolic 98–131; BP diastolic 58–74; PULSE 71–87; RESP 16–18; TEMP 36.1–37.3; O2SAT 97–100; BMI 29.5
--- OUTSIDE RECORDS SUMMARY | 2025-01-14 06:04 | XMS RPT_ITS | CCD ---
Author Organization [facility] Care Team Providers Care Research Consultant Name Role Phone GARLAND, TEETEE F Unavailable Unavailable GARLAND, TEETEE F Unavailable Unavailable NO REFERRING Unavailable Unavailable GARLAND TEETEE Unavailable Unavailable TEETEE HAQUE Unavailable Unavailable Brandon [...] e Tourlas, Lito Unavailable Unavailabl e PRIMARY CHESNEE [id number] RN, [id number] Unavai lable Unavailable Tourlas, Lito Unavailable [phone] Tanja Gil Unavailable Unavailable Podlogar MAINTENANCE TECHNICIAN 3RD SHIFT.Brenda DENNIS Primary Care Provider Michael Patton Unavailable Unavailable SAGAR Olguin Attending Provider [phone] Truman Olguin Unavailable [employer]ar MAINTENANCE TECHNICIAN 3RD SHIFT.Brenda DENNIS Primary Care Provider [employer]logar MAINTENANCE TECHNICIAN 3RD SHIFT.Brenda DENNIS Primary Care Provider Podlogar MAINTENANCE TECHNICIAN 3RD SHIFT.Brenda DENNIS Primary Care Provider Podlogar MAINTENANCE TECHNICIAN 3RD SHIFT.Brenda DENNIS Primary Care Provider MICHAEL PATTON Attending Unavailable PODLOGAR, BRENDA Primary Care Unavailable Podlogar WHEEL INSTALLER-C, Brenda Primary Care Provider Dr. Moises Mtz DO Emergency Provider PODLOGAR, BRENDA Primary Care Unavailable NEELEONORAT MARLENI FREEMAN Attending Unavail able PODLOGAR, BRENDA Primary Care Unavailable SELF Referring Unavailable PODLOGAR, BRENDA Attending Unavailable FELIPA ALVARENGA Primary Care Unavailab le PODLOGAR, BRENDA Primary Care Unavailable NEYHART FREEMAN, MARLENI Attending Unavail able NEYHART FREEMAN, MARLENI Referring Unavail able PODLOGAR, BRENDA Primary Care Unavailable PODLOGAR, BRENDA Referring Unavailable PODLOGAR, BRENDA Primary Care Unavailable NEYHART FREEMAN, MARLENI Attending Unavail able NEYHART FREEMAN, MARLENI Referring Unavail able PODLOGAR, BRENDA Primary Care Unavailable BENDARAM, AUGUSTA MCCRAY Attending Unavaila ble BENDARAM, AUGUSTA MCCRAY Referring Unavaila ble PODLOGAR, BRENDA Primary Care Unavailable PODLOGAR, BRENDA Primary Care Unavailable NEYHART PETE, MARLENI Referring Unavail able PODLOGAR, BRENDA Primary Care Unavailable NEYGAROT KWESI FREEMANRE Attending Unavail able Felipa Alvarenga MD Primary Care Provider Dr. Moises Mtz DO Attending Provider Podlogar WHEEL INSTALLER-C, Brenda Referring Provider Dr. Yaw Sandhu MD Attending Provider Dr. Yaw Sandhu MD Referring Provider Podlogar WHEEL INSTALLER, Brenda Primary Care Unavailable Podlogar WHEEL INSTALLER, Brenda Referring Unavailable Yaw Sandhu Attending Unavailable Podlogar WHEEL INSTALLER, Brenda Primary Care Unavailable Yaw Sandhu Attending Unavailable Yaw Sandhu Referring Unavailable Podlogar WHEEL INSTALLER, Brenda Primary Care Unavailable Yaw Sandhu Attending Unavailable Yaw Sandhu Referring Unavailable Andrez Mendez Attending Unavailable Podlogar WHEEL INSTALLER, Brenda Primary Care Unavailable Podlogar WHEEL INSTALLER, Brenda Primary Care Unavailable Moises Mtz Attending Unavailabl e Podlogar WHEEL INSTALLER, Brenda Primary Care Unavailable Yaw Sandhu Attending Unavailable Dr. Andrez Mendez DO Emergency Provider Allergies Allergy Classification Reported Allergen(s) Allergy Type Date of Onset Reaction(s) Facility (10 sources) Pollen; Translations: [Pollen] Propensity to adverse reactions (disorder) Sneezing [facility] Repository (1 source) Ragweed pollen allergen; Translations: [ragweed pollen allergen extract] Propensity to adverse reactions to drug (disorder) [facility] Repository (1 source) mixed grass pollens allergen extract; Translations: [mixed grass pollens allergen extract] Propensity to adverse reactions to drug (disorder) [facility] Repository (9 sources) ambrosia artemisiifolia pollen Allergy to substance (finding) Sneezing [facility] Work Phone: (20 sources) Morphine; Translations: [MORPHINE] Drug Allergy 01-09-20 16 Vomiting, GI Upset [facility] (20 sources) Seasonal allergy; Translations: [SEASONAL ALLERGIES] Allergy to substance 01-09-20 16 Other: See Comments, Cough, Itching [facility] (5 sources) Grass pollen; Translations: [grass pollen] Allergy to substance 12-29-19 25 Other [facility] Medications Current Medications Medication Drug Class(es) Dates Sig (Normalized) Sig (Original) Cetirizine (6 sources) Histamine-1 Receptor Antagonist cetirizine HCl (ZYRTEC [...] Active Start: 03-02-2020 take 2 tablets by [facility] once daily Citalopram Hydrobromide 10 MG Oral Tablet TAKE 2 TABLET Daily Quantity: 120 Refills: 0 Lito Hernandez MD Start : 02-Mar-2020 Active Start: 03-02-2020 take 1 tablet by donnie th once daily Citalopram Hydrobromide 10 MG Oral Tablet Take 1 tablet daily Quantity: 60 Refills: 0 Lito Hernandez MD Start : 02-Mar-2020 Active Comment on above: Take 1 tablet by donnie th once daily. D-Mannose (Azo D-Mannose) 500 mg tablet,chewable (4 sources) Start: take 1 tablet by mouth once daily, then take 1 tablet by mouth once D-Mannose (Azo D-Mannose) 500 mg tablet,chewable Active 500 mg PO DAILY December 28, 2024 12:00am levonorgestrel 0.925912 mg/hr intrauterine system (20 sources) Progestin, Progestin-containin [...] tablet (20 sources) l-Thyroxine Start: 021 End: take 1 tablet by mouth once daily before breakfast levothyroxine (SYNTHROID) 75 mcg tablet Indications: Thyroid disease Take 1 tablet by mouth daily before breakfast. 90 tablet 1 08/10/2024 Active Start: 08-24-2019 take 1 tablet by donnie th once daily Levothyroxine Sodium 75 MCG Oral Tablet Take 1 tablet daily Quantity: 90 Refills: 2 Lito Hernandez MD Start : 24-Aug-2019 Active Synthroid Active take 1 capsule by mo [facility] once daily levothyroxine 75 mcg (0.075 mg) oral capsule ; 1 cap(s) orally once a day Quantity: 0 Refills: 0 Ordered: 13-Jul-2020 Brandon Olguin Generic Substitution Allowed Comment on above: Take 1 tablet by donnie th daily before breakfast. mecobalamin 1 mg chewable tablet (4 sources) Start: 5 take 1 tablet by mouth once daily Mecobalamin (Vitamin B12) 1,000 mcg tablet,chewable Active 1000 ug PO DAILY December 28, 2024 12:00am Multivitamin (Daily Multi-Vitamin) tablet (4 sources) Start: Multivitamin (Daily Multi-Vitamin) tablet Active 1 {tbl} PO DAILY December 28, 2024 12:00am multivitamin tablet (13 sources) take 1 tablet by mouth once daily multivitamin tablet Take 1 tablet by mouth once daily. Active take 1 tablet by mouth once americo y multivitamin tablet Take 1 tablet by mouth once daily. 0 Active nitrofurantoin, macrocrystals 25 mg / nitrofurantoin, monohydrate 75 mg oral capsule (9 sources) Nitrofuran Antibacterial Start: 10-15-2024 nitrofurantoin monohydrate [...] Active Start: 12-25-2021 take 1 capsule by [facility] every twelve hours Macrobid 100 MG 1 capsule with food Orally every 12 hrs for 7 day(s) November, Active Comment on above: Take 1 capsule by [facility] one time only for 1 dose. Take one tablet after intercourse ondansetron 4 mg disintegrating oral tablet (5 sources) Serotonin-3 Receptor Antagonist Start: 01-13-20 take 1 tablet by mouth three times daily as needed for nausea and vomiting Ondansetron 4 mg tablet,disintegrati ng Active 4 mg PO THREE TIMES A DAY as needed for nausea and vomiting January 12, 2025 8:25am Start: 12-28-2024 End: 01-04-2025 take 1 tablet by mouth every eight hours as needed for nausea Ondansetron 4 mg tablet,disintegrating Discontinued 4 mg PO EVERY 8 HOURS NEEDED as needed for Nausea December 28, 2024 12:00am January 04, 2025 11:04am oxyCODONE hydrochloride 5 mg oral tablet (1 source) Opioid Agonist Start: 01-12-2025 take 1 tablet by mouth every six hours as needed for pain Oxycodone 5 mg tablet Active 5 mg PO EVERY 6 HOURS as needed for pain 12 January 12, 2025 Start: 01-12-2025 take 1 tablet by donnie th every six hours as needed for pain Oxycodone 5 mg tablet Active 5 mg PO EVERY 6 HOURS as needed for pain 12 January 12, 2025 phentermine hydrochloride 37.5 mg oral capsule (20 sources) Sympathomimetic Amine Anorectic Start: 10-27-2024 End: 01-25-2025 take 31-31.9 capsules by mouth once daily before breakfast Phentermine HCl 37.5 mg capsule Indications: Class 1 obesity without serious comorbidity with body mass index (BMI) of 31.0 to 31.9 in adult, unspecified obesity type Take 1 capsule by mouth daily before breakfast for 90 days. 90 capsule 10/27/2024 01/25/2025 Active Start: 02-20-2023 End: 01-27-2024 take 31-31.9 tablets [...] on above: Take 1 capsule by mo [facility] daily before breakfast for 30 days. Take 1 tablet by donnie th daily before breakfast for 30 days. Take [...] Comment on above: Take 1 capsule by [facility] once daily for 14 days. Take one tablet daily x 14 days- then increase dose. Take 1 capsule by [facility] once daily for 30 days. Start [...] / HYDROcodone bitartrate 5 mg oral tablet (4 sources) Opioid Agonist Start: 09-09-2020 End: 09-14-2020 Hydrocodone-Acetam inophen 1 TABLET tablet Discontinued 1 {tbl} PO EVERY 8 HOURS NEEDED as needed for Pain Score 4-10 15 5 September 09, 2020 September 13, 2020 1:00am September 14, 2020 1:03am aspirin 81 mg delayed release oral tablet (7 sources) Platelet Aggregation Inhibitor, Nonsteroidal Anti-inflammatory Drug [...] (20 sources) Histamine-1 Receptor Antagonist Start: 09-09-19 21 End: 10-16-19 25 fexofenadine (LINDSAY) 60 mg tablet Take 60 mg by mouth as needed (allergies). 09/09/2020 10/15/2024 Discontinued Start: 09-09-2020 End: 12-28-2024 take 1 tablet by mouth once daily Fexofenadine 180 MG tablet Discontinued 180 mg PO DAILY September 09, 2020 1:00am December 28, 2024 5:46pm Comment on above: Take by mouth. fluconazole 150 mg oral tablet (2 sources) Azole Antifungal Start: 1 End: 1 take 1 tablet by mouth once Diflucan [...] by prescriber. MEDICATION, NON-DATABASE (8 sources) End: MEDICATION, NON-DATABASE Inject 2 Each subcutaneously every [...] Take 1 tablet by donnie once daily. naproxen 500 mg oral tablet (6 sources) Nonsteroidal Anti-inflammatory Drug Start: take 1 tablet by mouth twice daily at mealtime Naproxen 500 MG Oral Tablet TAKE 1 TABLET Twice daily. Take with food and 8 oz of water. Do not take ibuprofen, aleve or motrin with this. Quantity: 28 Refills: 0 Ander Hernandezstantinos Start : 02-Nov-2019 Active nitrofurantoin, macrocrystals 100 [...] urine or feces.Take with food or milk. phenazopyridine hydrochloride 200 mg oral tablet (11 [...] day Quantity: 9 Refills: 0 Ordered: 13-Jul-2020 Murtaza Barber Start: 13-Jul-2020 End: 15-Jul-2020 Status: Other [...] Problem Date Documented Date Episodic/Chronic Abdominal pain (11 sources) Epigastric pain; Translations: [Epigastric pain] Onset: 01-04-2025 12-28-2024 Episodic Anxiety disorders (5 sources) Generalized anxiety disorder; Translations: [Mixed anxiety and depressive disorder] 10-29-2023 Chronic Appendicitis and other appendiceal conditions (4 sources) Acute appendicitis; Translations: [Unspecified acute appendicitis] 09-09-2020 Episodic Asthma (9 sources) Asthma; Translations: [Asthma] Chronic Biliary tract disease (4 sources) Cholangiectasis; Translations: [Other specified diseases of biliary tract] 01-06-2025 Chronic Biliary tract disease (8 sources) Biliary calculus; Translations: [Calculus of gallbladder [...] migrainosus] Onset: 10-15-2024 02-20-2023 Chronic Immunity disorders (4 sources) Polyclonal gammopathy; 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 Malaise and fatigue (8 sources) Malaise and fatigue; Translations: [Other malaise] Onset: 10-15-2024 05-16-2023 Episodic Mood disorders (1 source) Depressive disorder; Translations: [Other specified depressive episodes] Chronic Nutritional deficiencies (15 sources) Cobalamin deficiency; Translations: [Iron deficiency] Onset: 10-15-2024 02-20-2023 Episodic Other aftercare (1 source) Long-term current use of drug therapy; Translations: [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] 10-15-2024 Episodic Other female [...] Episodic Comment on above: UTI Viral infection (4 sources) Viral disease; Translations: [Viral infection, unspecified] [...] Test Name Value Interpretation Reference Range Facility Abdomen Limitedon 01-12-2025 Abdomen Limited [facility] Services [address] [place], [place] [id number] Abdomen Limited MR#: [id number] Acct: [id number] Name: JENNIFER MANNING Rep #: [id number] : 1980 F 44 From: Leo green MD PCP: Brenda Roy, WHEEL INSTALLER-C Status: REG ER Study: Abdomen Limited Date of Exam: 01/12/25 Exam# [id number] Ordering Dr: Andrez Mendez DO PROCEDURE: ABDOMEN LIMITED 01/12/2025 REASON FOR EXAM: RUQ PAIN TECHNIQUE: ABDOMEN LIMITED COMPARISON: 12/28/2024. FINDINGS: Liver: Unremarkable hepatic echotexture. 16.8 cm. Unremarkable flow in the portal vein. Gallbladder: Diffuse thickening of the wall of the gallbladder measuring 9 mm (previously 7 mm). Positive sonographic Kamara. Multiple gallstones are noted. No evidence of pericholecystic free fluid on the current exam. Common bile duct: Dilated measuring 10 mm. Pancreas: Limited evaluation of the pancreatic tail secondary to overlying bowel gas. Kidneys: The right kidney measures 10.6 x 5.7 x 4.8 cm. Right renal cortical thickness measuring 2 cm. US/Abdomen Limited IMPRESSION: Cholelithiasis. Diffuse thickening of the wall of the gallbladder. Positive sonographic Kamara. Findings are probably unchanged since the prior exam. Acute cholecystitis remains in the differential diagnosis although felt less likely due to under distention of the gallbladder on the current exam. This needs clinical evaluation and follow-up. Dilated common bile duct, increased. Reading Location: [place] [address] CC: KHADIJAH Gutierrez Podlogar; Andrez Mendez DO Croze Cutter: Signed Normal [facility] Absolute lymphocyte countOrd ered By: Andrez Mendez on 01-12-2025 Lymphocytes Auto (Unsp spec) [#/Vol] 1.87 10*3/uL 0.83-4.51 [facility] Absolute neutrophil countOrd ered By: Andrez Mendez on 01-12-2025 Neutrophils (Bld) [#/Vol] 5.1 10*3/uL 2.0-7.7 [facility] Anion gap in Serum or Plasma Ordered By: nAdrez Mendez on 01-12-2025 Anion gap [Moles/Vol] 10 mmol/L 5-15 [facility] Automated lymphocyte count a s percentage of total leukocytesOrdered By: Andrez Mendez on 01-12-2025 Lymphocytes/100 WBC Auto (Unsp spec) 22.8 % 19-41 [facility] BUN/creatinine ratioOrdered By: Andrez Mendez on 01-12-2025 Urea nitrogen/Creatinine [Mass ratio] 17.9 mg/mg - [facility] Basic Metabolic Profile (BMP )on 01-12-2025 BUN/CRE 17.9 RATIO Normal - [facility] Comment on above: Performed By: #### L 500.2500, L500.3400, L501.2450 ####[facility] [address] [place], [address] Calcium [Mass/Vol] 8.7 mg/dL Normal 7.6-11.0 [facility] Comment on above: Performed By: #### L 500.2500, L500.3400, L501.2450 ####[facility] [address] [place], [address] Chloride [Moles/Vol] 103 mmol/L Normal 98-108 [facility] Comment on above: Performed By: #### L 500.2500, L500.3400, L501.2450 ####[facility] [address] [place], [address] CO2 [Moles/Vol] 23.2 mmol/L Normal 21.0-32.0 [facility] Comment on above: Performed By: #### L 500.2500, L500.3400, L501.2450 ####[facility] [address] [place], [address] Creatinine [Mass/Vol] 0.64 mg/dL Low 0.70-1.20 [facility] Comment on above: Performed By: #### L 500.2500, L500.3400, L501.2450 ####[facility] [address] [place], [address] ECRCL 119.83 ml/min Normal 50-250 [facility] Comment on above: Performed By: #### L 500.2500, L500.3400, L501.2450 ####[facility] [address] [place], [address] GAP 10 Normal 5-15 [facility] Comment on above: Performed By: #### L 500.2500, L500.3400, L501.2450 ####[facility] [address] [place], [address] GFR/1.73 sq M.predicted among non-blacks MDRD (S/P/Bld) [Vol rate/Area] 111 mL/min/{1.73_m2} Normal >60 [facility] Comment on above: Result Comment: mL/m in/1.73m2 CKD-EPI Creatinine Equation (2020) Performed By: #### L 500.2500, L500.3400, L501.2450 ####[facility] [address] [place], [address] Glucose [Mass/Vol] 93 mg/dL Normal 70-99 [facility] Comment on above: Performed By: #### L 500.2500, L500.3400, L501.2450 ####[facility] [address] [place], [address] Potassium [Moles/Vol] 3.5 mmol/L Normal 3.3-5.1 [facility] Comment on above: Performed By: #### L 500.2500, L500.3400, L501.2450 ####[facility] [address] [place], [address] Sodium [Moles/Vol] 136 mmol/L Normal 133-145 [facility] Comment on above: Performed By: #### L 500.2500, L500.3400, L501.2450 ####[facility] [address] [place], [address] Urea nitrogen [Mass/Vol] 12 mg/dL Normal 4-19 [facility] Comment on above: Performed By: #### L 500.2500, L500.3400, L501.2450 ####[facility] [address] [place], [address] Basophil percentageOrdered B y: Andrez Mendez on 01-12-2025 Basophils/100 WBC (Bld) 0.7 % 0-1 [facility] Bilirubin directOrdered By: Andrez Mendez on 01-12-2025 Bilirubin.direct [Mass/Vol] 0.17 mg/dL 0.00-0.30 [facility] Bilirubin, totalOrdered By: Andrez Mendez on 01-12-2025 Bilirubin [Mass/Vol] 0.40 mg/dL 0.00-1.30 [facility] CBC W/Diff, Automatedon 12-27 Absolute Lymph 1.87 X10 3/uL Normal 0.83-4.51 [facility] Comment on above: Performed By: #### L 100.0100 #### [facility] [address] [place], [address] Absolute Neut 5.1 X10 3/uL Normal 2.0-7.7 [facility] Comment on above: Performed By: #### L 100.0100 #### [facility] [address] [place], [address] Basophils/100 WBC (Bld) 0.7 % Normal 0-1 [facility] Comment on above: Performed By: #### L 100.0100 #### [facility] [address] [place], [address] Eosinophils/100 WBC (Bld) 6.8 % High 0-5 [facility] Comment on above: Performed By: #### L 100.0100 #### [facility] [address] [place], [address] Erythrocyte distribution width (RBC) [Ratio] 12.8 % Normal 11.6-14.6 [facility] Comment on above: Performed By: #### L 100.0100 #### [facility] [address] [place], [address] Hematocrit (Bld) [Volume fraction] 36.4 % Low 37-47 [facility] Comment on above: Performed By: #### L 100.0100 #### [facility] [address] [place], [address] Hemoglobin (Bld) [Mass/Vol] 12.6 g/dL Normal 12.0-15.0 [facility] Comment on above: Performed By: #### L 100.0100 #### [facility] [address] [place], [address] IG% 0.200 Normal 0.0-0.9 [facility] Comment on above: Result Comment: IG% - Immature Granulocytes (promyelocytes, myelocytes and metamyelocytes) > 1% indicates that a LEFT SHIFT is Present. Performed By: #### L 100.0100 #### [facility] [address] [facility] [place], [address] Lymphocytes/100 WBC (Bld) 22.8 % Normal 19-41 [facility] Comment on above: Performed By: #### L 100.0100 #### [facility] [address] [facility] [place], [address] MCH (RBC) [Entitic mass] 30.5 pg Normal 27.0-32.0 [facility] Comment on above: Performed By: #### L 100.0100 #### [facility] [address] [place], [address] MCHC (RBC) [Mass/Vol] 34.6 g/dL Normal 32-36 [facility] Comment on above: Performed By: #### L 100.0100 #### [facility] [address] [place], [address] MCV (RBC) [Entitic vol] 88.1 fL Normal 81-99 [facility] Comment on above: Performed By: #### L 100.0100 #### [facility] [address] [place], [address] Monocytes/100 WBC (Bld) 7.2 % Normal 0-10 [facility] Comment on above: Performed By: #### L 100.0100 #### [facility] [address] [place], [address] Neutrophils/100 WBC (Bld) 62.3 % Normal 47-70 [facility] Comment on above: Performed By: #### L 100.0100 #### [facility] [address] [place], [address] Nucleated RBC (Bld) [#/Vol] 0 10*3/uL Normal 0-5 [facility] Comment on above: Performed By: #### L 100.0100 #### [facility] [address] [place], [address] Platelet mean volume (Bld) [Entitic vol] 9.0 fL Normal 6.2-12.0 [facility] Comment on above: Performed By: #### L 100.0100 #### [facility] [address] [place], [address] Platelets (Bld) [#/Vol] 339 10*3/uL Normal 150-450 [facility] Comment on above: Performed By: #### L 100.0100 #### [facility] [address] [place], [address] RBC (Bld) [#/Vol] 4.13 10*6/uL Low 4.2-5.4 [facility] Comment on above: Performed By: #### L 100.0100 #### [facility] [address] [place], [address] RDW SD 41.5 fl Normal 35.1-43.9 [facility] Comment on above: Performed By: #### L 100.0100 #### [facility] [address] [place], [place], [address] WBC (Bld) [#/Vol] 8.2 10*3/uL Normal 4.4-11.0 [facility] Comment on above: Performed By: #### L 100.0100 #### [facility] [address] [place], [address] Carbon dioxide, total [Moles /volume] in Central venous bloodOrdered By: Andrez Mendez on 01-12-2025 CO2 [Moles/Vol] 23.2 mmol/L 21.0-32.0 [facility] Chloride assayOrdered By: Shara Mendez on 01-12-2025 Chloride [Moles/Vol] 103 mmol/L 98-108 [facility] Eosinophil percentageOrdered By: Andrez Mendez on 01-12-2025 Eosinophils/100 WBC (Bld) 6.8 % High 0-5 [facility] Erythrocyte distribution wid th ratioOrdered By: Andrez Mendez on 01-12-2025 Erythrocyte distribution width (RBC) [Ratio] 12.8 % 11.6-14.6 [facility] Erythrocyte distribution wid th standard deviationOrdered By: Andrez Mendez on 01-12-2025 Erythrocyte distribution width (RBC) [Ratio] 41.5 fl 35.1-43.9 [facility] Glomerular filtration rate ( GFR) estimation/1.73 sq m using serum, plasma, or whole bOrdered By: Andrez Mendez on 01-12-2025 GFR/1.73 sq M.predicted among non-blacks MDRD (S/P/Bld) [Vol rate/Area] 111 mL/min/{1.73_m2} >60 [facility] Comment on above: mL/min/1.73m2 CKD-EP I Creatinine Equation (2020) Hematocrit Auto (Bld) [Volum e fraction]Ordered By: Andrez Mendez on 01-12-2025 Hematocrit (Bld) [Volume fraction] 36.4 % Low 37-47 [facility] Hemoglobin measurementOrdere d By: Andrez Mendez on 01-12-2025 Hemoglobin (Bld) [Mass/Vol] 12.6 g/dL 12.0-15.0 [facility] Immature granulocytes/100 WB C Auto (Bld)Ordered By: Andrez Mendez on 01-12-2025 Immature granulocytes/100 WBC (Bld) 0.200 % 0.0-0.9 [facility] Comment on above: IG% - Immature Granu locytes (promyelocytes, myelocytes and metamyelocytes) > 1% indicates that a LEFT SHIFT is Present. Laboratory - Chemistry and C hemistry - challengeOrdered By: Andrez Mendez on 01-12-2025 AST [Catalytic activity/Vol] 17 U/L <32 [facility] Lipaseon 01-12-2025 Lipase [Catalytic activity/Vol] 45 U/L Normal 13-75 [facility] Comment on above: Result Comment: Timmy carrion note: LIPASE revised reference range effective 22. New Lipase methodology. Expected to produce lower values than the previous assay method. NEW Reference Range: 13 - 75 U/L Performed By: #### L 500.2500, L500.3400, L501.2450 ####[facility] [address] [place], [address] Lipase measurementOrdered By : Andrez Mendez on 01-12-2025 Lipase [Catalytic activity/Vol] 45 U/L 13-75 [facility] Comment on above: Please note:LIPASE r evised reference range effective 22. New Lipase methodology. Expected to produce lower values than the previous assay method. NEW Reference Range: 13 - 75 U/L Liver Profileon 01-12-2025 Albumin [Mass/Vol] 4.1 g/dL Normal 3.5-5.0 [facility] Comment on above: Performed By: #### L 500.2500, L500.3400, L501.2450 ####[facility] [address] [place], [address] ALK PHOS 93 U/L Normal 35-104 [facility] Comment on above: Performed By: #### L 500.2500, L500.3400, L501.2450 ####[facility] [address] [place], [address] ALT [Catalytic activity/Vol] 24 U/L Normal <=34 [facility] Comment on above: Performed By: #### L 500.2500, L500.3400, L501.2450 ####[facility] [address] [place], [address] AST [Catalytic activity/Vol] 17 U/L Normal <=31 [facility] Comment on above: Performed By: #### L 500.2500, L500.3400, L501.2450 ####[facility] [address] [place], [address] Bilirubin [Mass/Vol] 0.40 mg/dL Normal 0.00-1.30 [facility] Comment on above: Performed By: #### L 500.2500, L500.3400, L501.2450 ####[facility] [address] [place], [address] Bilirubin.direct [Mass/Vol] 0.17 mg/dL Normal 0.00-0.30 [facility] Comment on above: Performed By: #### L 500.2500, L500.3400, L501.2450 ####[facility] [address] [place], [address] Globulin (S) [Mass/Vol] 3.9 g/dL Normal 2.2-4.2 [facility] Comment on above: Performed By: #### L 500.2500, L500.3400, L501.2450 ####[facility] [address] [place], [address] T PROT 8.0 g/dL Normal 5.9-8.4 [facility] Comment on above: Performed By: #### L 500.2500, L500.3400, L501.2450 ####[facility] [address] [place], [address] MCV (mean corpuscular volume ) determinationOrdered By: Andrez Mendez on 01-12-2025 MCV (RBC) [Entitic vol] 88.1 fL 81-99 [facility] Mean corpuscular hemoglobin (MCH) determinationOrdered By: Andrez Mendez on 01-12-2025 MCH (RBC) [Entitic mass] 30.5 pg 27.0-32.0 [facility] Mean corpuscular hemoglobin concentration (MCHC) determinationOrdered By: Andrez Mendez on 01-12-2025 MCHC (RBC) [Mass/Vol] 34.6 g/dL 32-36 [facility] Mean platelet volume determi nationOrdered By: Andrez Mendez on 01-12-2025 Platelet mean volume (Bld) [Entitic vol] 9.0 fL 6.2-12.0 [facility] Monocyte percentageOrdered B y: Andrez Mendez on 01-12-2025 Monocytes/100 WBC (Bld) 7.2 % 0-10 [facility] Neutrophil percentageOrdered By: Andrez Mendez on 01-12-2025 Neutrophils/100 WBC (Bld) 62.3 % 47-70 [facility] Nucleated red blood cell per centageOrdered By: Andrez Mendez on 01-12-2025 Nucleated RBC/100 WBC (Bld) [Ratio] 0 % 0-5 [facility] Platelet countOrdered By: Shara Mendez on 01-12-2025 Platelets (Bld) [#/Vol] 339 10*3/uL 150-450 [facility] Potassium measurement (mass/ volume)Ordered By: Andrez Mendez on 01-12-2025 Potassium (Unsp spec) [Mass/Vol] 3.5 mmol/L 3.3-5.1 [facility] RBC Auto (Bld) [#/Vol]Ordere d By: Andrez Mendez on 01-12-2025 RBC (Bld) [#/Vol] 4.13 10*6/uL Low 4.2-5.4 [facility] Serum creatinine measurement (mass/volume)Ordered By: Andrez Mendez on 01-12-2025 Creatinine [Mass/Vol] 0.64 mg/dL Low 0.70-1.20 [facility] Serum globulin measurementOr dered By: Andrez Mendez on 01-12-2025 Globulin (S) [Mass/Vol] 3.9 g/dL 2.2-4.2 [facility] Serum glucose measurement (m ass/volume)Ordered By: Andrez Mendez on 01-12-2025 Glucose [Mass/Vol] 93 mg/dL 70-99 [facility] Serum or plasma alanine garvin otransferase (ALT) measurementOrdered By: Andrez Mendez on 01-12-2025 ALT [Catalytic activity/Vol] 24 U/L <35 [facility] Serum or plasma albumin alivia urement (mass/volume)Ordered By: Andrez Mendez on 01-12-2025 Albumin [Mass/Vol] 4.1 g/dL 3.5-5.0 [facility] Serum or plasma alkaline isaías sphatase measurementOrdered By: Andrez Mendez on 01-12-2025 ALP [Catalytic activity/Vol] 93 U/L 35-104 [facility] Serum or plasma calcium alivia urement (mass/volume)Ordered By: Andrez Mendez on 01-12-2025 Calcium [Mass/Vol] 8.7 mg/dL 7.6-11.0 [facility] Serum or plasma urea nitroge n measurement (mass/volume)Ordered By: Andrez Mendez on 01-12-2025 Urea nitrogen [Mass/Vol] 12 mg/dL 4-19 [facility] Sodium levelOrdered By: Cecilio Mendez on 01-12-2025 Sodium [Moles/Vol] 136 mmol/L 133-145 [facility] Total proteinOrdered By: Gary Mendez on 01-12-2025 Protein [Mass/Vol] 8.0 g/dL 5.9-8.4 [facility] White blood cell (WBC) count Ordered By: Andrez Mendez on 01-12-2025 WBC (Bld) [#/Vol] 8.2 10*3/uL 4.4-11.0 [facility] TSH DL <= 0.005 mIU/L QnOrde red By: Tashi Myrick on 01-05-2025 TSH Qn 2.360 uIU/mL 0.300-4.20 0 [facility] Thyroid Stim Hormone (TSH)on 01-05-2025 TSH 2.360 uIU/mL Normal 0.300-4.20 0 [facility] Comment on above: Order Comment: ADD O N Performed By: #### L 501.9520 ####[facility] [address] [place], [address] Anion gap in Serum or Plasma Ordered By: Yaw Sandhu on 01-04-2025 Anion gap [Moles/Vol] 9 mmol/L 5-15 [facility] BUN/creatinine ratioOrdered By: Yaw Sandhu on 01-04-2025 Urea nitrogen/Creatinine [Mass ratio] 24.8 mg/mg High 10-20 [facility] Bilirubin, totalOrdered By: Yaw Sandhu on 01-04-2025 Bilirubin [Mass/Vol] 0.51 mg/dL 0.00-1.30 [facility] Carbon dioxide, total [Moles /volume] in Central venous bloodOrdered By: Yaw Sandhu on 01-04-2025 CO2 [Moles/Vol] 22.0 mmol/L 21.0-32.0 [facility] Chloride assayOrdered By: Loretta Sandhu on 01-04-2025 Chloride [Moles/Vol] 105 mmol/L 98-108 [facility] Comprehensive Metabolic Prof ilon 01-04-2025 Albumin [Mass/Vol] 4.1 g/dL Normal 3.5-5.0 [facility] Comment on above: Performed By: #### L 500.4050 #### [facility] [address] [place], [address] Albumin/Globulin [Mass ratio] 1.0 {ratio} Normal 0.9-2.4 [facility] Comment on above: Performed By: #### L 500.4050 #### [facility] [address] [place], [address] ALK PHOS 211 U/L High 35-104 [facility] Comment on above: Performed By: #### L 500.4050 #### [facility] [address] [place], [address] ALT [Catalytic activity/Vol] 82 U/L High <=34 [facility] Comment on above: Performed By: #### L 500.4050 #### [facility] [address] [place], [address] AST [Catalytic activity/Vol] 47 U/L High <=31 [facility] Comment on above: Performed By: #### L 500.4050 #### [facility] [address] [place], [address] Bilirubin [Mass/Vol] 0.51 mg/dL Normal 0.00-1.30 [facility] Comment on above: Performed By: #### L 500.4050 #### [facility] [address] [place], [address] BUN/CRE 24.8 RATIO High 10-20 [facility] Comment on above: Performed By: #### L 500.4050 #### [facility] [address] [place], [address] Calcium [Mass/Vol] 9.3 mg/dL Normal 7.6-11.0 [facility] Comment on above: Performed By: #### L 500.4050 #### [facility] [address] [place], [address] Chloride [Moles/Vol] 105 mmol/L Normal 98-108 [facility] Comment on above: Performed By: #### L 500.4050 #### [facility] [address] [place], [address] CO2 [Moles/Vol] 22.0 mmol/L Normal 21.0-32.0 [facility] Comment on above: Performed By: #### L 500.4050 #### [facility] [address] [place], [address] Creatinine [Mass/Vol] 0.69 mg/dL Low 0.70-1.20 [facility] Comment on above: Performed By: #### L 500.4050 #### [facility] [address] [place], [address] GAP 9 Normal 5-15 [facility] Comment on above: Performed By: #### L 500.4050 #### [facility] [address] [place], [address] GFR/1.73 sq M.predicted among non-blacks MDRD (S/P/Bld) [Vol rate/Area] 109 mL/min/{1.73_m2} Normal >60 [facility] Comment on above: Result Comment: mL/m in/1.73m2 CKD-EPI Creatinine Equation (2020) Performed By: #### L 500.4050 #### [facility] [address] [place], [address] Globulin (S) [Mass/Vol] 4.1 g/dL Normal 2.2-4.2 [facility] Comment on above: Performed By: #### L 500.4050 #### [facility] [address] [place], [address] Glucose [Mass/Vol] 94 mg/dL Normal 70-99 [facility] Comment on above: Performed By: #### L 500.4050 #### [facility] [address] [place], [address] Potassium [Moles/Vol] 3.8 mmol/L Normal 3.3-5.1 [facility] Comment on above: Performed By: #### L 500.4050 #### [facility] [address] [place], [address] Sodium [Moles/Vol] 136 mmol/L Normal 133-145 [facility] Comment on above: Performed By: #### L 500.4050 #### [facility] [address] [place], [address] T PROT 8.3 g/dL Normal 5.9-8.4 [facility] Comment on above: Performed By: #### L 500.4050 #### [facility] [address] [place], [place], [address] Urea nitrogen [Mass/Vol] 17 mg/dL Normal 4-19 [facility] Comment on above: Performed By: #### L 500.4050 #### [facility] [address] [place], [place], [address] Glomerular filtration rate ( GFR) estimation/1.73 sq m using serum, plasma, or whole bOrdered By: Yaw Sandhu on 01-04-2025 GFR/1.73 sq M.predicted among non-blacks MDRD (S/P/Bld) [Vol rate/Area] 109 mL/min/{1.73_m2} >60 [facility] Comment on above: mL/min/1.73m2 CKD-EP I Creatinine Equation (2020) Laboratory - Chemistry and C hemistry - challengeOrdered By: Yaw Sandhu on 01-04-2025 AST [Catalytic activity/Vol] 47 U/L High <32 [facility] Potassium measurement (mass/ volume)Ordered By: Yaw Sandhu on 01-04-2025 Potassium (Unsp spec) [Mass/Vol] 3.8 mmol/L 3.3-5.1 [facility] Serum creatinine measurement (mass/volume)Ordered By: Yaw Sandhu on 01-04-2025 Creatinine [Mass/Vol] 0.69 mg/dL Low 0.70-1.20 [facility] Serum globulin measurementOr dered By: Yaw Sandhu on 01-04-2025 Globulin (S) [Mass/Vol] 4.1 g/dL 2.2-4.2 [facility] Serum glucose measurement (m ass/volume)Ordered By: Yaw Sandhu on 01-04-2025 Glucose [Mass/Vol] 94 mg/dL 70-99 [facility] Serum or plasma alanine garvin otransferase (ALT) measurementOrdered By: Yaw Sandhu on 01-04-2025 ALT [Catalytic activity/Vol] 82 U/L High <35 [facility] Serum or plasma albumin alivia urement (mass/volume)Ordered By: Yaw Sandhu on 01-04-2025 Albumin [Mass/Vol] 4.1 g/dL 3.5-5.0 [facility] Serum or plasma albumin/glob ulin mass ratioOrdered By: Yaw Sandhu on 01-04-2025 Albumin/Globulin [Mass ratio] 1.0 {ratio} 0.9-2.4 [facility] Serum or plasma alkaline isaías sphatase measurementOrdered By: Yaw Sandhu on 01-04-2025 ALP [Catalytic activity/Vol] 211 U/L High 35-104 [facility] Serum or plasma calcium alivia urement (mass/volume)Ordered By: Yaw Sandhu on 01-04-2025 Calcium [Mass/Vol] 9.3 mg/dL 7.6-11.0 [facility] Serum or plasma urea nitroge n measurement (mass/volume)Ordered By: Yaw Sandhu on 01-04-2025 Urea nitrogen [Mass/Vol] 17 mg/dL 4-19 [facility] Sodium levelOrdered By: Damoin Sandhu on 01-04-2025 Sodium [Moles/Vol] 136 mmol/L 133-145 [facility] Surgery Visit Reporton 01-04 Surgery Visit Report [facility] [address] [place] [address]. [address] [place] [address] OFFICE VISIT Date of Service: 01/04/25 MR#: [id number] Acct: [id number] Name: JENNIFER MANNING Rep #: [id number] : 1980 Provider: Dr. Yaw fitzpatrick MD Age/Sex: 44/F Location: [facility] Status: Signed Intake Vital Signs 12/28/24 15:59 [...] morphine Adverse Reaction (Verified 01/05/25 13:53) Nausea [facility] Medical History (Updated 01/06/25 @ 18:04 by [...] a salad with the tiniest bit of Uzbek dressing as well as smoothies and protein shakes. She does add that she had some chicken salad yesterday at a graduation green party and did okay. Outside of the above [...] Exam C (more content not included)... 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 Submit a new specimen if indicated. Normal [facility] Comment on above: Performed By: #### M 100.2200 ####[facility] [address] [place], [address] 12 Lead EKGon 12-28-2024 12 Lead EKG [facility] Services [address] [place] [address] 12 Lead EKG 12/28/24 1722 MR#: [id number] Acct: [id number] Name: JENNIFER MANNING Rep #: [id number] : 1980 44 From: Yaw Titus MD [...] Normal ECG Confirmed by Yaw Titus ([id number]), multimedia editor DENICE ROUSE ([id number]) on 12/29/2024 10:02:01 AM Referred By: Confirmed By: Yaw Titus 12/29/24 1002 Date Yaw Titus MD CC: WHEEL INSTALLER-C Brenda Roy; Dr. Moises Mtz DO Signed Normal [facility] Abdomen/Pelvis W IV Cont ONL Yon 12-28-2024 Abdomen/Pelvis W IV Cont ONLY [facility] Imaging Services [address] [place] [address] Abdomen/Pelvis W IV Cont ONLY MR#: [id number] Acct: [id number] Name: JENNIFER MANNING Rep #: [id number] : 1980 F 44 From: Sreekanth Arauz MD PCP: Brenda Roy, WHEEL INSTALLER-C Status: REG ER Study: Abdomen/Pelvis W IV Cont ONLY Date of Exam: Exam# [id number] Ordering Dr: Moises Mtz DO PROCEDURE: ABDOMEN/PELVIS [...] analysis and consider GI referral. Reading Location: [id number] CC: KHADIJAH Gutierrez Podlogar; Dr. Moises Mtz DO Croze Cutter: Signed Normal [facility] Absolute lymphocyte countOrd ered By: Moises Mtz on 12-28-2024 Lymphocytes Auto (Unsp spec) [#/Vol] 1.61 10*3/uL 0.83-4.51 [facility] Absolute neutrophil countOrd ered By: Moises tMz on 12-28-2024 Neutrophils (Bld) [#/Vol] 3.4 10*3/uL 2.0-7.7 [facility] Anion gap in Serum or Plasma Ordered By: Moises Mtz on 12-28-2024 Anion gap [Moles/Vol] 11 mmol/L 5-15 [facility] Automated lymphocyte count a s percentage of total leukocytesOrdered By: Moises Mtz on 12-28-2024 Lymphocytes/100 WBC Auto (Unsp spec) 26.6 % 19-41 [facility] BUN/creatinine ratioOrdered By: Moises Mtz on 12-28-2024 Urea nitrogen/Creatinine [Mass ratio] 13.7 mg/mg 10-20 [facility] Basophil percentageOrdered B y: Moises Mtz on 12-28-2024 Basophils/100 WBC (Bld) 1.2 % High 0-1 [facility] Bilirubin Test strip Ql (U)O rdered By: Moises FitzgeraldRuslan on 12-28-2024 Bilirubin Ql (U) Negative Negative [facility] Bilirubin, totalOrdered By: Moisespatricia Mtz on 12-28-2024 Bilirubin [Mass/Vol] 0.38 mg/dL 0.00-1.30 [facility] CBC W/Diff, Automatedon Absolute Lymph 1.61 X10 3/uL Normal 0.83-4.51 [facility] Comment on above: Performed By: #### L 500.4050, L501.2450, L100.0100 #### [facility] [address] [place], [address] Absolute Neut 3.4 X10 3/uL Normal 2.0-7.7 [facility] Comment on above: Performed By: #### L 500.4050, L501.2450, L100.0100 #### [facility] [address] [place], [address] Basophils/100 WBC (Bld) 1.2 % High 0-1 [facility] Comment on above: Performed By: #### L 500.4050, L501.2450, L100.0100 #### [facility] [address] [place], [address] Eosinophils/100 WBC (Bld) 7.1 % High 0-5 [facility] Comment on above: Performed By: #### L 500.4050, L501.2450, L100.0100 #### [facility] [address] [place], [address] Erythrocyte distribution width (RBC) [Ratio] 13.1 % Normal 11.6-14.6 [facility] Comment on above: Performed By: #### L 500.4050, L501.2450, L100.0100 #### [facility] [address] [place], [address] Hematocrit (Bld) [Volume fraction] 40.7 % Normal 37-47 [facility] Comment on above: Performed By: #### L 500.4050, L501.2450, L100.0100 #### [facility] [address] [place], [address] Hemoglobin (Bld) [Mass/Vol] 13.6 g/dL Normal 12.0-15.0 [facility] Comment on above: Performed By: #### L 500.4050, L501.2450, L100.0100 #### [facility] [address] [place], [address] IG% 1.000 High 0.0-0.9 [facility] Comment on above: Result Comment: IG% - Immature Granulocytes (promyelocytes, myelocytes and metamyelocytes) > 1% indicates that a LEFT SHIFT is Present. Performed By: #### L 500.4050, L501.2450, L100.0100 #### [facility] [address] [place], [address] Lymphocytes/100 WBC (Bld) 26.6 % Normal 19-41 [facility] Comment on above: Performed By: #### L 500.4050, L501.2450, L100.0100 #### [facility] [address] [place], [address] MCH (RBC) [Entitic mass] 30.4 pg Normal 27.0-32.0 [facility] Comment on above: Performed By: #### L 500.4050, L501.2450, L100.0100 #### [facility] [address] [place], [address] MCHC (RBC) [Mass/Vol] 33.4 g/dL Normal 32-36 [facility] Comment on above: Performed By: #### L 500.4050, L501.2450, L100.0100 #### [facility] [address] [place], [address] MCV (RBC) [Entitic vol] 91.1 fL Normal 81-99 [facility] Comment on above: Performed By: #### L 500.4050, L501.2450, L100.0100 #### [facility] [address] [place], [address] Monocytes/100 WBC (Bld) 8.4 % Normal 0-10 [facility] Comment on above: Performed By: #### L 500.4050, L501.2450, L100.0100 #### [facility] [address] [place], [address] Neutrophils/100 WBC (Bld) 55.7 % Normal 47-70 [facility] Comment on above: Performed By: #### L 500.4050, L501.2450, L100.0100 #### [facility] [address] [place], [address] Nucleated RBC (Bld) [#/Vol] 0 10*3/uL Normal 0-5 [facility] Comment on above: Performed By: #### L 500.4050, L501.2450, L100.0100 #### [facility] [address] [place], [address] Platelet mean volume (Bld) [Entitic vol] 9.0 fL Normal 6.2-12.0 [facility] Comment on above: Performed By: #### L 500.4050, L501.2450, L100.0100 #### [facility] [address] [place], [address] Platelets (Bld) [#/Vol] 366 10*3/uL Normal 150-450 [facility] Comment on above: Performed By: #### L 500.4050, L501.2450, L100.0100 #### [facility] [address] [place], [address] RBC (Bld) [#/Vol] 4.47 10*6/uL Normal 4.2-5.4 [facility] Comment on above: Performed By: #### L 500.4050, L501.2450, L100.0100 #### [facility] [address] [place], [address] RDW SD 42.9 fl Normal 35.1-43.9 [facility] Comment on above: Performed By: #### L 500.4050, L501.2450, L100.0100 #### [facility] [address] [place], [address] WBC (Bld) [#/Vol] 6.1 10*3/uL Normal 4.4-11.0 [facility] Comment on above: Performed By: #### L 500.4050, L501.2450, L100.0100 #### [facility] [address] [place], [address] Carbon dioxide, total [Moles /volume] in Central venous bloodOrdered By: Moises Mtz on 12-28-2024 CO2 [Moles/Vol] 19.8 mmol/L Low 21.0-32.0 [facility] Chest PA and Lateralon 12-28 Chest PA and Lateral [facility] Imaging Services [address] [place] [address] Chest PA and Lateral MR#: [id number] Acct: [id number] Name: JENNIFER MANNING Rep #: [id number] : 1980 F 44 From: Sreekanth Arauz MD PCP: Brenda Roy WHEEL INSTALLER-Eunice Status: [facility] ER Study: Chest PA and Lateral Date of Exam: 12/28/24 Exam# [id number] Ordering Dr: Moises Mtz DO PROCEDURE: CHEST [...] IMPRESSION: No acute cardiopulmonary abnormality. Reading Location: [id number] CC: KHADIJAH Gutierrez Podlogar; Dr. Moises Mtz DO Croze Cutter: Signed Normal [facility] Chloride assayOrdered By: Chris Mtz on 12-28-2024 Chloride [Moles/Vol] 106 mmol/L 98-108 [facility] Comprehensive Metabolic Prof ilon 12-28-2024 Albumin [Mass/Vol] 4.2 g/dL Normal 3.5-5.0 [facility] Comment on above: Performed By: #### L 500.4050, L501.2450, L100.0100 #### [facility] [address] [place], [address] Albumin/Globulin [Mass ratio] 1.0 {ratio} Normal 0.9-2.4 [facility] Comment on above: Performed By: #### L 500.4050, L501.2450, L100.0100 #### [facility] [address] [place], [address] ALK PHOS 97 U/L Normal 35-104 [facility] Comment on above: Performed By: #### L 500.4050, L501.2450, L100.0100 #### [facility] [address] [place], [address] ALT [Catalytic activity/Vol] 84 U/L High <=34 [facility] Comment on above: Performed By: #### L 500.4050, L501.2450, L100.0100 #### [facility] [address] [place], [address] AST [Catalytic activity/Vol] 95 U/L High <=31 [facility] Comment on above: Performed By: #### L 500.4050, L501.2450, L100.0100 #### [facility] [address] [place], [address] Bilirubin [Mass/Vol] 0.38 mg/dL Normal 0.00-1.30 [facility] Comment on above: Performed By: #### L 500.4050, L501.2450, L100.0100 #### [facility] [address] [place], [address] BUN/CRE 13.7 RATIO Normal 10-20 [facility] Comment on above: Performed By: #### L 500.4050, L501.2450, L100.0100 #### [facility] [address] [place], [address] Calcium [Mass/Vol] 8.8 mg/dL Normal 7.6-11.0 [facility] Comment on above: Performed By: #### L 500.4050, L501.2450, L100.0100 #### [facility] [address] [place], [address] Chloride [Moles/Vol] 106 mmol/L Normal 98-108 [facility] Comment on above: Performed By: #### L 500.4050, L501.2450, L100.0100 #### [facility] [address] [place], [address] CO2 [Moles/Vol] 19.8 mmol/L Low 21.0-32.0 [facility] Comment on above: Performed By: #### L 500.4050, L501.2450, L100.0100 #### [facility] [address] [place], [address] Creatinine [Mass/Vol] 0.68 mg/dL Low 0.70-1.20 [facility] Comment on above: Performed By: #### L 500.4050, L501.2450, L100.0100 #### [facility] [address] [place], [address] ECRCL 112.37 ml/min Normal 50-250 [facility] Comment on above: Performed By: #### L 500.4050, L501.2450, L100.0100 #### [facility] [address] [place], [address] GAP 11 Normal 5-15 [facility] Comment on above: Performed By: #### L 500.4050, L501.2450, L100.0100 #### [facility] [address] [place], [address] GFR/1.73 sq M.predicted among non-blacks MDRD (S/P/Bld) [Vol rate/Area] 110 mL/min/{1.73_m2} Normal >60 [facility] Comment on above: Result Comment: mL/m in/1.73m2 CKD-EPI Creatinine Equation (2020) Performed By: #### L 500.4050, L501.2450, L100.0100 #### [facility] [address] [place], [address] Globulin (S) [Mass/Vol] 4.2 g/dL Normal 2.2-4.2 [facility] Comment on above: Performed By: #### L 500.4050, L501.2450, L100.0100 #### [facility] [address] [place], [address] Glucose [Mass/Vol] 88 mg/dL Normal 70-99 [facility] Comment on above: Performed By: #### L 500.4050, L501.2450, L100.0100 #### [facility] [address] [place], [address] Potassium [Moles/Vol] 3.5 mmol/L Normal 3.3-5.1 [facility] Comment on above: Performed By: #### L 500.4050, L501.2450, L100.0100 #### [facility] [address] [place], [address] Sodium [Moles/Vol] 137 mmol/L Normal 133-145 [facility] Comment on above: Performed By: #### L 500.4050, L501.2450, L100.0100 #### [facility] [address] [place], [address] T PROT 8.4 g/dL Normal 5.9-8.4 [facility] Comment on above: Performed By: #### L 500.4050, L501.2450, L100.0100 #### [facility] [address] [place], [address] Urea nitrogen [Mass/Vol] 9 mg/dL Normal 4-19 [facility] Comment on above: Performed By: #### L 500.4050, L501.2450, L100.0100 #### [facility] [address] [place], [address] Emergency Department Summary on 12-28-2024 Emergency Department Summary [facility] Medical Records Department [address] [place] [address] Emergency Department Summary 12/28/24 MR#: [id number] Acct: [id number] Name: JENNIFER MANNING Rep #: [id number] : 1980 44 From: Moises Mtz DO [...] intact Psych: Cooperative, appropriate mood and affect [facility] Medical History Crohn's disease Home Medications ???Medication [...] but d (more content not included)... Normal [facility] Eosinophil percentageOrdered By: Moises Mtz on 12-28-2024 Eosinophils/100 WBC (Bld) 7.1 % High 0-5 [facility] Erythrocyte distribution wid th ratioOrdered By: Moises Mtz on 12-28-2024 Erythrocyte distribution width (RBC) [Ratio] 13.1 % 11.6-14.6 [facility] Erythrocyte distribution wid th standard deviationOrdered By: Moises Workman on 12-28-2024 Erythrocyte distribution width (RBC) [Ratio] 42.9 fl 35.1-43.9 [facility] Gallbladderon 12-28-2024 Gallbladder [facility] Imaging Services [address] [place] [address] Gallbladder MR#: [id number] Acct: [id number] Name: JENNIFER MANNING Rep #: [id number] : 1980 F 44 From: Sreekanth Arauz MD PCP: KHADIJAH Waterman Status: REG ER Study: Gallbladder Date of Exam: 12/28/24 Exam# [id number] Ordering Dr: Moises Mtz DO PROCEDURE: GALLBLADDER [...] suggestive of mild hepatic steatosis. Reading Location: [facility] CC: KHADIJAH Gutierrez Podlogar; Dr. Moises Mtz DO Croze Cutter: Signed Normal [facility] Glomerular filtration rate ( GFR) estimation/1.73 sq m using serum, plasma, or whole bOrdered By: Moises Mtz on 12-28-2024 GFR/1.73 sq M.predicted among non-blacks MDRD (S/P/Bld) [Vol rate/Area] 110 mL/min/{1.73_m2} >60 [facility] Comment on above: mL/min/1.73m2 CKD-EP I Creatinine Equation (2020) Hematocrit Auto (Bld) [Volum e fraction]Ordered By: Moises Mtz on 12-28-2024 Hematocrit (Bld) [Volume fraction] 40.7 % 37-47 [facility] Hemoglobin measurementOrdere d By: Moises Mtz on 12-28-2024 Hemoglobin (Bld) [Mass/Vol] 13.6 g/dL 12.0-15.0 [facility] Immature granulocytes/100 WB C Auto (Bld)Ordered By: Moises Mtz on 12-28-2024 Immature granulocytes/100 WBC (Bld) 1.000 % High 0.0-0.9 [facility] Comment on above: IG% - Immature Granu locytes (promyelocytes, myelocytes and metamyelocytes) > 1% indicates that a LEFT SHIFT is Present. Ketones Test strip Ql (U)Ord ered By: Moises Mtz on 12-28-2024 Ketones Ql (U) 5 mg/dl High Negative [facility] L501.4021on 12-28-2024 Trop T High Sen < 6 Normal <=14 [facility] Comment on above: Performed By: #### L 501.4021 #### [facility] [address] [place], [place], [address] Laboratory - Chemistry and C hemistry - challengeOrdered By: Moises Mtz on 12-28-2024 AST [Catalytic activity/Vol] 95 U/L High <32 [facility] Lipaseon 12-28-2024 Lipase [Catalytic activity/Vol] 39 U/L Normal 13-75 [facility] Comment on above: Result Comment: Timmy carrion note: LIPASE revised reference range effective 22. New Lipase methodology. Expected to produce lower values than the previous assay method. NEW Reference Range: 13 - 75 U/L Performed By: #### L 500.4050, L501.2450, L100.0100 #### [facility] [address] [place], [address] Lipase measurementOrdered By : Moises Mtz on 12-28-2024 Lipase [Catalytic activity/Vol] 39 U/L 13-75 [facility] Comment on above: Please note:LIPASE r evised reference range effective 22. New Lipase methodology. Expected to produce lower values than the previous assay method. NEW Reference Range: 13 - 75 U/L MCV (mean corpuscular volume ) determinationOrdered By: Moises Mtz on 12-28-2024 MCV (RBC) [Entitic vol] 91.1 fL 81-99 [facility] Mean corpuscular hemoglobin (MCH) determinationOrdered By: Moises Smith on 12-28-2024 MCH (RBC) [Entitic mass] 30.4 pg 27.0-32.0 [facility] Mean corpuscular hemoglobin concentration (MCHC) determinationOrdered By: Moises Mtz on 12-28-2024 MCHC (RBC) [Mass/Vol] 33.4 g/dL 32-36 [facility] Mean platelet volume determi nationOrdered By: Moises Mtz on 12-28-2024 Platelet mean volume (Bld) [Entitic vol] 9.0 fL 6.2-12.0 [facility] Microscopic analysis of urin e for red blood cells (RBC)Ordered By: Moises Mtz on 12-28-2024 Microscopic analysis of urine for red blood cells (RBC) 0-5 SEEN /hpf 0-5 [facility] Monocyte percentageOrdered B y: Moises Mtz on 12-28-2024 Monocytes/100 WBC (Bld) 8.4 % 0-10 [facility] Mucus LM Ql (Urine sed)Order ed By: Moises Mtz on 12-28-2024 Mucus Ql (Urine sed) 0 SEEN /hpf [facility] Neutrophil percentageOrdered By: Moises Mtz on 12-28-2024 Neutrophils/100 WBC (Bld) 55.7 % 47-70 [facility] Nitrite Test strip Ql (U)Ord ered By: Moises Mtz on 12-28-2024 Nitrite Ql (U) Negative Negative [facility] Nucleated red blood cell per centageOrdered By: Moises Mtz on 12-28-2024 Nucleated RBC/100 WBC (Bld) [Ratio] 0 % 0-5 [facility] Platelet countOrdered By: Chris Mtz on 12-28-2024 Platelets (Bld) [#/Vol] 366 10*3/uL 150-450 [facility] Potassium measurement (mass/ volume)Ordered By: Moises Mtz on 12-28-2024 Potassium (Unsp spec) [Mass/Vol] 3.5 mmol/L 3.3-5.1 [facility] Protein Test strip Ql (U)Ord ered By: Moises Mtz on 12-28-2024 Protein Ql (U) 30 mg/dl High Negative [facility] RBC Auto (Bld) [#/Vol]Ordere d By: Moises Mtz on 12-28-2024 RBC (Bld) [#/Vol] 4.47 10*6/uL 4.2-5.4 [facility] Serum creatinine measurement (mass/volume)Ordered By: Moises Mtz on 12-28-2024 Creatinine [Mass/Vol] 0.68 mg/dL Low 0.70-1.20 [facility] Serum globulin measurementOr dered By: Moises Mtz on 12-28-2024 Globulin (S) [Mass/Vol] 4.2 g/dL 2.2-4.2 [facility] Serum glucose measurement (m ass/volume)Ordered By: Moises Mtz on 12-28-2024 Glucose [Mass/Vol] 88 mg/dL 70-99 [facility] Serum or plasma alanine garvin otransferase (ALT) measurementOrdered By: Moises Mtz on 12-28-2024 ALT [Catalytic activity/Vol] 84 U/L High <35 [facility] Serum or plasma albumin alivia urement (mass/volume)Ordered By: Moises Workman on 12-28-2024 Albumin [Mass/Vol] 4.2 g/dL 3.5-5.0 [facility] Serum or plasma albumin/glob ulin mass ratioOrdered By: Moises Mtz on 12-28-2024 Albumin/Globulin [Mass ratio] 1.0 {ratio} 0.9-2.4 [facility] Serum or plasma alkaline isaías sphatase measurementOrdered By: Moises Mtz on 12-28-2024 ALP [Catalytic activity/Vol] 97 U/L 35-104 [facility] Serum or plasma calcium alivia urement (mass/volume)Ordered By: Moises Workman on 12-28-2024 Calcium [Mass/Vol] 8.8 mg/dL 7.6-11.0 [facility] Serum or plasma urea nitroge n measurement (mass/volume)Ordered By: Moises Mtz on 12-28-2024 Urea nitrogen [Mass/Vol] 9 mg/dL 4-19 [facility] Sodium levelOrdered By: Darek Mtz on 12-28-2024 Sodium [Moles/Vol] 137 mmol/L 133-145 [facility] Squamous epithelial cells de tection in urine sediment by light microscopyOrdered By: Moises Mtz on 12-28-2024 Epithelial cells.squamous LM Ql (Urine sed) 0-5 SEEN /hpf 5-10 [facility] Total proteinOrdered By: Ramon Mtz on 12-28-2024 Protein [Mass/Vol] 8.4 g/dL 5.9-8.4 [facility] Transvaginal Non-on 12-28-2024 Transvaginal Non- [facility] Imaging Services [address] [place] [address] Transvaginal Non- MR#: [id number] Acct: [id number] Name: JENNIFER MANNING Rep #: [id number] : 1980 F 44 From: Rod Canales PCP: Brenda Roy, [employer]EL INST[employer]ER-C Status: REG ER Study: Transvaginal Non- Date of Exam: Exam# [id number] Ordering Dr: Moises Mtz DO PROCEDURE: TRANSVAGINAL [...] IUD noted within the uterus. Reading Location: [facility] CC: KHADIJAH Roy; Dr. Moises Mtz, Croze Cutter: Signed Normal [facility] Troponin T.cardiac [Mass/vol ume] in Serum or Plasma by High sensitivity methodOrdered By: Moises Mtz on 12-28-2024 Troponin T.cardiac High sensitivity method [Mass/Vol] < 6 ng/L <14 [facility] Urinalysis, Completeon 12-28 BACTERIA 1+ /hpf Normal None Seen [facility] Comment on above: Order Comment: CLEAN CATCH Performed By: #### L 400.0001 ####[facility] [address] [place], [address] EPI,SQUAMOUS 0-5 SEEN Normal 5-10 [facility] Comment on above: Order Comment: CLEAN CATCH Performed By: #### L 400.0001 ####[facility] [address] [place], [address] RBC 0-5 SEEN Normal 0-5 [facility] Comment on above: Order Comment: CLEAN CATCH Performed By: #### L 400.0001 ####[facility] [address] [place], [address] WBC 0-5 SEEN Normal 0-5 [facility] Comment on above: Order Comment: CLEAN CATCH Performed By: #### L 400.0001 ####[facility] [address] [place], [address] Mucus Ql (Urine sed) 0 SEEN Normal [facility] Comment on above: Order Comment: CLEAN CATCH Performed By: #### L 400.0001 ####[facility] [address] [place], [address] Urine clarityOrdered By: Ramon Mtz on 12-28-2024 Clarity (U) Sl. Cloudy Clear [facility] Urine color determinationOrd ered By: Moises Mtz on 12-28-2024 Color (U) Yellow Yellow [facility] Urine cultureOrdered By: Ramon Mtz on 12-28-2024 Bacteria identified Cx Nom (U) Mixed Gram Pos & Gram Neg Org Abnormal [facility] Urine glucose detectionOrder ed By: Moises Mtz on 12-28-2024 Glucose Ql (U) Normal mg/dl Normal [facility] Urine leukocyte esterase det ection by dipstickOrdered By: Moises Mtz on 12-28-2024 Leukocyte esterase Test strip Ql (U) 25 /ul High Negative [facility] Urine pHOrdered By: Moises Carpenter on 12-28-2024 pH (U) 7.0 [pH] 5.0 - 8.0 [facility] Urine sediment bacteria coun t by microscopy (number/high power field)Ordered By: Moises Mtz on 12-28-2024 Bacteria LM.HPF (Urine sed) [#/Area] 1 /[HPF] None Seen [facility] Urine specific gravity measu rementOrdered By: Moises Mtz on 12-28-2024 Specific gravity (U) [Rel density] 1.010 1.002-1.03 0 [facility] Urine urobilinogen measureme ntOrdered By: Moises Mtz on 12-28-2024 Urobilinogen Ql (U) 1 mg/dl High Normal [facility] White blood cell (WBC) count Ordered By: Moises Mtz on 12-28-2024 WBC (Bld) [#/Vol] 6.1 10*3/uL 4.4-11.0 [facility] White blood cell countOrdere d By: Moises Mtz on 12-28-2024 White blood cell count 0-5 SEEN /hpf 0-5 [facility] CNPNon 10-27-2024 CNPN Telephone (OBGYWM) -- KERRIJENNIFER ([id number]) 1980 F Date Time Provider Department 10/27/24 MARLENI ALMONTE OBFANTAWLawson During your visit today, [...] Encounter Status:Closed by MICHAEL WHEELER on 10/27/24 [facility] CNOVon 10-15-2024 CNOV Office Visit (OBGYWM ) -- JENNIFER MANNING ([id number]) 1980 F Date Time Provider Department 10/15/24 9:50 AM MARLENI ALMONTE OBJENNIFER During your visit today, we recorded the [...] the last appointment: - getting UTIs with [place] regularly- would like more abx to use [...] appointment): Dietary changes: B-protein shake- powder, chobani egyptian drink (20g) L- yogurt and cottage cheese [...] migraines, yes (more content not included)... Normal [facility] BACTERIAL VAGINOSIS NAATon 1 09-16-2023 Lactobacillus crispatus+gasseri+joe senii + Gardnerella vaginalis + Atopobium vaginae rRNA SMILEY+probe Ql (Vag fld) Not detected Normal Not detected [facility] Comment on above: Order Comment: Speci men Type: SWABOrdering Facility: [facility] Address: [address] [place] [address] [place] [address] Performed By: #### B VAMP, CVTV ####[facility] [id number] [place] [address] [place] Bacteria Ur Culton [...] , Intermediate >32 , Resistant >64 Abnormal [facility] Comment on above: Performed By: #### 6 30-4 ####[facility] LABCLIA [id number] [place] [address] [place] RACHELLE/TRICHOMONAS NAATon 1 09-16-2023 C. glabrata RNA SMILEY+probe Ql (Vag fld) Not detected Normal Not detected [facility] Comment on above: Order Comment: Speci men Type: SWABOrdering Facility: [facility] Address: [address] [place] [address] Performed By: #### B VAMP, CVTV ####[facility] LABIA [id number] [place] [address] [place] Rachelle sp DNA SMILEY+probe Ql (Vag fld) Not detected Normal Not detected [facility] Comment on above: Order Comment: Speci men Type: SWABOrdering Facility: [facility] Address: [address] [place] [address] Result Comment: The Rachelle species group target includes C. albicans, C. tropicalis, C. parapsilosis, and C. dubliniensis. Performed By: #### Edilberto VAMP, CVTV ####[facility] LABIA [id number] [place] [address] [place] T. vaginalis DNA SMILEY+probe Ql (Unsp spec) Not detected Normal Not detected [facility] Comment on above: Order Comment: Speci men Type: SWABOrdering Facility: [facility] Address: [address] [place] [address] Performed By: #### B VAMP, CVTV ####[facility] LABCLIA [id number] [place] [id number] [place] CNOVon 07-16-2024 CNOV Office Visit (UCWSTR ) -- JENNIFER MANNING ([id number]) 1980 F Date Time Provider Department 07/16/24 6:00 PM KVNG [facility] During your visit today, we recorded the following information about you: Temperature Pulse Respiration Blood pressure 98.2 degrees 89/minute 18/minute 100/80 Weight 82.3 kg Kvng Roldan PA 07/16/2024 6:29 PM Signed This note was created using [employer]. Subjective Jennifer Manning is a 43 year [...] the Keflex however. Patient did take an iyer-yus-atatfwd medication, unsure what is called, but it [...] is alert (more content not included)... Normal [facility] UA DIP, URINE (POC)on 2023 BILIRUBIN UA (POCT) Negative Negative [facility] CLARITY UA (POCT) Clear [facility] COLOR UA (POCT) Yellow [facility] GLUCOSE UA (POCT) Negative Negative mg/dL [facility] Hemoglobin Ql (U) Trace-intact Abnormal Negative [facility] Interpretation and review of laboratory results Abnormal [facility] KETONE UA (POCT) Negative Negative mg/dL [facility] LEUKOCYTES UA (POCT) Small Abnormal Negative [facility] NITRITE UA (POCT) Negative Negative [facility] PH UA (POCT) 6.0 4.5 - 8.0 [facility] Protein Ql (U) Negative Negative mg/dL [facility] SPECIFIC GRAVITY UA (POCT) 1.020 1.005 - 1.030 [facility] UROBILINOGEN UA (POCT) 0.2 Normal E.U./dL [facility] Location:[facility], [address] [place] [address], [place], [address] [facility] POINT OF CARE [facility] CNOVon 05-18-2024 CNOV Office Visit (OBGYWM ) -- KERRIJENNIFER PONCE ([id number]) 1980 F Date Time Provider Department 05/18/24 2:00 PM MARLENI ALMONTE OBFANTAWLawson During your visit today, [...] yes Chi (more content not included)... Normal [facility] CNPNon 03-27-2024 JEANNIEN Telephone (OBGYWM) -- JENNIFER MANNING ([id number]) 1980 F Date Time Provider Department 03/27/24 MARLENI ALMONTE During your visit today, we recorded the following information about you: Mirian Olguin RN 03/27/2024 9:33 AM Signed ----- Message from Marleni Freeman MD sent at 03/27/2024 9:21 AM EDT ----- Please notify patient- Based on urinalysis it looks like she has UTI- I will treat going into - we may need to change ABX when [...] Encounter Status:Closed by MIRIAN OLGUIN on 03/27/24 Normal [facility] Bacteria Ur Culton Bacteria identified Cx Nom [...] , Intermediate >32 , Resistant >64 Abnormal [facility] Comment on above: Performed By: #### 6 30-4 ####[facility] LABCLIA [id number] [place] [address] [place] Urinalysis complete panel (U )on 03-26-2024 BACTERIA UL 2236.6 uL High Negative [facility] Comment on above: Order Comment: Speci men Type: URINE SPECIMENOrdering Facility: [facility] Address: [address] [place] [address] Performed By: #### 2 4356-8 ####[facility] LABIA [id number] [place] [address] [place] Bilirubin Ql (U) Negative Normal Negative [facility] Comment on above: Order Comment: Speci men Type: URINE SPECIMENOrdering Facility: [facility] Address: [address] [place] [address] Performed By: #### 2 4356-8 ####[facility] LABCLIA [id number] [place] [address] [place] CALCIUM OXALATE CRYSTALS (UA) Few Abnormal None Seen [facility] Comment on above: Order Comment: Speci men Type: URINE SPECIMENOrdering Facility: [facility] Address: [address] [place] [address] Performed By: #### 2 4356-8 ####[facility] LABCLIA [id number] [place] [address] [place] Clarity (Unsp spec) Cloudy Abnormal Clear [facility] Comment on above: Order Comment: Speci men Type: URINE SPECIMENOrdering Facility: [facility] Address: [address] [place] [address] Performed By: #### 2 4356-8 ####[facility] LABCLIA [id number] [place] [address] [place] Color (U) Yellow Normal Yellow [facility] Comment on above: Order Comment: Speci men Type: URINE SPECIMENOrdering Facility: [facility] Address: [address] [place] [address] Performed By: #### 2 4356-8 ####[facility] LABCLIA [id number] [place] [address] [place] Epithelial cells LM.HPF (Urine sed) [#/Area] None Seen Normal [facility] Comment on above: Order Comment: Speci men Type: URINE SPECIMENOrdering Facility: [facility] Address: [address] [place] [address] Performed By: #### 2 4356-8 ####[facility] LABCLIA [id number] [place] [address] [place] Glucose Test strip (U) [Mass/Vol] Negative Normal Negative [facility] Comment on above: Order Comment: Speci men Type: URINE SPECIMENOrdering Facility: [facility] Address: [address] [place] [address] Performed By: #### 2 4356-8 ####[facility] LABCLIA [id number] [place] [address] [place] Hemoglobin Ql (U) 3+ Abnormal Negative [facility] Comment on above: Order Comment: Speci men Type: URINE SPECIMENOrdering Facility: [facility] Address: [address] [place] [address] Performed By: #### 2 4356-8 ####[facility] LABCLIA [id number] [place] [address] [place] Hyaline casts (Urine sed) [#/Area] 1-3 /LPF Abnormal 0 /LPF [facility] Comment on above: Order Comment: Speci men Type: URINE SPECIMENOrdering Facility: [facility] Address: [address] [place] [address] Performed By: #### 2 4356-8 ####[facility] LABCLIA [id number] [place] [address] [place] Ketones Ql (U) Trace Abnormal Negative [facility] Comment on above: Order Comment: Speci men Type: URINE SPECIMENOrdering Facility: [facility] Address: [address] [place] [address] Performed By: #### 2 4356-8 ####[facility] LABCLIA [id number] [place] [address] [place] Leukocyte esterase Test strip Ql (U) 2+ Abnormal Negative [facility] Comment on above: Order Comment: Speci men Type: URINE SPECIMENOrdering Facility: [facility] Address: [address] [place] [address] Performed By: #### 2 4356-8 ####[facility] LABCLIA [id number] [place] [address] [place] Nitrite Ql (U) Negative Normal Negative [facility] Comment on above: Order Comment: Speci men Type: URINE SPECIMENOrdering Facility: [facility] Address: [address] [place] [address] Performed By: #### 2 4356-8 ####[facility] LABCLIA [id number] [place] [address] [place] pH (U) 6.5 [pH] Normal <8.5 [facility] Comment on above: Order Comment: Speci men Type: URINE SPECIMENOrdering Facility: [facility] Address: [address] [place] [address] Performed By: #### 2 4356-8 ####[facility] LABCLIA [id number] [place] [address] [place] Protein (U) [Mass/Vol] Negative Normal Negative [facility] Comment on above: Order Comment: Speci men Type: URINE SPECIMENOrdering Facility: [facility] Address: [address] [place] [address] Performed By: #### 2 4356-8 ####[facility] LABIA [id number] [place] [address] [place] RBC LM.HPF (Urine sed) [#/Area] 6-10 /HPF Abnormal 0-2 /HPF [facility] Comment on above: Order Comment: Speci men Type: URINE SPECIMENOrdering Facility: [facility] Address: [address] [place] [address] Performed By: #### 2 4356-8 ####[facility] [id number] [place] [address] [place] Specific gravity (U) [Rel density] 1.023 Normal 1.005-1.03 0 [facility] Comment on above: Order Comment: Speci men Type: URINE SPECIMENOrdering Facility: [facility] Address: [address] [place] [address] Performed By: #### 2 4356-8 ####[facility] LABIA [id number] [place] [address] [place] Urobilinogen Ql (U) 0.2 EU/dL Normal 0.2-1.0 EU/dL [facility] Comment on above: Order Comment: Speci men Type: URINE SPECIMENOrdering Facility: [facility] Address: [address] [place] [address] Performed By: #### 2 4356-8 ####[facility] LABIA [id number] [place] [address] [place] WBC LM.HPF (Urine sed) [#/Area] /[HPF] Abnormal 0-5 /HPF [facility] Comment on above: Order Comment: Speci men Type: URINE SPECIMENOrdering Facility: [facility] Address: [address] [place] [address] Performed By: #### 2 4356-8 ####[facility] LABCLIA [id number] [place] [address] [place] ACTH Plas-mCncon 03-14-2024 Corticotropin (P) [Mass/Vol] 15.0 pg/mL Normal 7.2-63.3 [facility] Comment on above: Order Comment: Speci men Type: BLOOD SPECIMENOrdering Facility: [facility] Address: [address] [place] [address] Result Comment: ACTH Reference Range: 7-10 am: 7.2 - 63.3 pg/mL Performed By: #### 2 141-0 ####[facility] LABCLIA [id number] [place] [address] [place] Cortis SerPl-mCncon 03-14-20 Cortisol [Mass/Vol] 11.6 ug/dL Normal 4.8-19.5 [facility] Comment on above: Order Comment: Speci men Type: BLOOD SPECIMENOrdering Facility: [facility] Address: [address] [place] [address] Result Comment: Prov ided reference range is from 6-10 AM sample collection time. Cortisol Reference Range: 6-10 AM = 4.8-19.5 ug/dL, 4-8 PM = 2.5-11.9 ug/dL Performed By: #### 2 143-6 ####[facility] LABCLIA [id number] [place] [address] [place] Glucose p fast SerPl-mCncon 03-14-2024 Glucose post fast [Mass/Vol] 92 mg/dL Normal 74-99 [facility] Comment on above: Order Comment: Speci men Type: BLOOD SPECIMENOrdering Facility: [facility] Address: [address] [place] [address] Result Comment: [place] Diabetes Association guidelines state that a diabetes mellitus diagnosis is preliminarily made when the fasting plasma glucose meets or exceeds 126 mg/dL. In the absence of unequivocal hyperglycemia, results should be confirmed with repeat testing. Patients are at increased risk for diabetes mellitus (prediabetes) when the fasting glucose is 100 to 125 mg/dL. Performed By: #### 1 558-6 ####[facility] LABIA [id number] [place] [address] [place] INSULIN ANTIBODY BLDon 03-14 Insulin Ab Qn (S) <0.4 Normal <0.4 [facility] Comment on above: Order Comment: Jovi haynes Type: BLOOD SPECIMENOrdering Facility: [facility] Address: [address] [place] [address] Result Comment: Anti -insulin antibody test is used as an aid in diagnosis and prognosis of autoimmune diabetes mellitus in combination with other tests such as anti-GAD65 and anti-IA-2 antibody. A single negative result cannot rule out autoimmune diabetes mellitus. The test is not reliable in patients who had previously received exogenous insulin. Clinical correlation is required. Performed By: #### F INS, INSLAB ####[facility] LABIA [id number] [place] [address] [place] INSULIN ANTIBODY, QUALITATIVE Negative Normal Negative [facility] Comment on above: Order Comment: Jovi haynes Type: BLOOD SPECIMENOrdering Facility: [facility] Address: [address] [place] [address] Performed By: #### F INS, INSLAB ####[facility] LABIA [id number] [place] [address] [place] INSULIN, FREEon 03-14-2024 Insulin Free Qn 3.4 mU/L Normal 3.0-25.0 [facility] Comment on above: Order Comment: Jovi haynes Type: BLOOD SPECIMENOrdering Facility: [facility] Address: [address] [place] [address] Performed By: #### F INS, INSLAB ####[facility] LABCLIA [id number] [place] [id number] [place] Insulin SerPl-aCncon 03-14- 024 Insulin Qn 3.9 u[IU]/mL Normal 3.0-25.0 [facility] Comment on above: Order Comment: Speci men Type: BLOOD SPECIMENOrdering Facility: [facility] Address: [address] [place] [address] [place] [address] Performed By: #### 2 0448-7 ####[facility] LABCLIA [id number] [place] [address] [place] CNOVon 03-09-2024 CNOV Office Visit (ENWSTR ) -- KERRIJENNIFER ([id number]) 1980 F Date Time Provider Department 03/09/24 8:40 AM AUGUSTA ANDERSON ENCLAYTON During your visit today, we recorded the [...] Regular Adul (more content not included)... Normal [facility] CNOVon 03-03-2024 CNOV Office Visit (OBGYWM ) -- JENNIFER MANNING ([id number]) 1980 F Date Time Provider Department 03/03/24 8:20 AM MARLENI ALMONTE OBFANTAWM During your visit today, we recorded the following information about you: Blood pressure Weight Height 102/62 80.8 kg 1.664 m Marleni Almonte MD 03/03/2024 8:49 AM Signed Traffic Safety Administrator offered: Patient declines. Jennifer is a 43 [...] no problems w/ this , scheduled c/s Hydrology Technician History LMP: 04/25/2021, IUD Age at Menarche: Age at First : Age at Menopause: Hydrology Technician History Comments: Sexual Activity: Yes; Male Contraception: [...] external genitalia normal, normal Bartholin's glands, urethra, Gholson's glands, no vulvar lesions, no cervical lesions, [...] Marleni Avendaño MD Referring Provider: BRENDA ROY [[id number]] Allergies As of Date: 03/03/2024 Noted Allergy Reaction MORPHINE 01/09/2016 11 - Vomiting SEASONAL ALLERG (more content not included)... Normal [facility] Bacteria identifiedon 2023 Bacteria identified Cx Nom (U) Test: Urine Culture Specimen Source: Clean Catch/Voided Specimen Type: Urine Specimen Date: 02/25/2024 1701 Result Date: 02/27/2024 0944 Result Status: Final result Abnormal: No Resulting Lab: [facility] [address] [place] [address] [facility] Comment on above: Performed By: #### 6 30-4 #### PRETTY Taylor ([id number]) [facility] ([facility]) [address] [place], [place] [id number] Ramiro 02-07-2024 KARLA Telephone (OBGYWM) -- JENNIFER MANNING ([id number]) 1980 F Date Time Provider Department 02/07/24 [...] Patient notified. 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 Consult order for Endo pending. 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 (itworks co) Problem List As Of Date 02/07/2024 Noted [...] Status:Closed by CHARISSA ESCOBAR on 02/10/24 Normal [facility] CBC panel Auto (Bld)on 02-04 Erythrocyte distribution width (RBC) [Ratio] 12.4 % Normal 11.5-15.0 [facility] Comment on above: Order Comment: Jovi haynes Type: BLOOD SPECIMENOrdering Facility: [facility] Address: [address] [place] [address] Performed By: #### 5 8410-2 ####[facility] [id number] [place] [address] [place] Hematocrit (Bld) [Volume fraction] 39.7 % Normal 36.0-46.0 [facility] Comment on above: Order Comment: Jovi haynes Type: BLOOD SPECIMENOrdering Facility: [facility] Address: [address] [place] [address] Performed By: #### 5 8410-2 ####[facility] DENIWNCLIA [id number] [place] [address] [place] Hemoglobin (Bld) [Mass/Vol] 13.2 g/dL Normal 11.5-15.5 [facility] Comment on above: Order Comment: Speci men Type: BLOOD SPECIMENOrdering Facility: [facility] Address: [address] [place] [address] Performed By: #### 5 8410-2 ####[facility] [id number] [place] [address] [place] MCH (RBC) [Entitic mass] 29.6 pg Normal 26.0-34.0 [facility] Comment on above: Order Comment: Speci men Type: BLOOD SPECIMENOrdering Facility: [facility] Address: [address] [place] [address] Performed By: #### 5 8410-2 ####[facility] [id number] [place] [address] [place] MCHC (RBC) [Mass/Vol] 33.2 g/dL Normal 30.5-36.0 [facility] Comment on above: Order Comment: Speci men Type: BLOOD SPECIMENOrdering Facility: [facility] Address: [address] [place] [address] Performed By: #### 5 8410-2 ####[facility] [id number] [place] [address] [place] MCV (RBC) [Entitic vol] 89.0 fL Normal 80.0-100.0 [facility] Comment on above: Order Comment: Speci men Type: BLOOD SPECIMENOrdering Facility: [facility] Address: [address] [place] [address] Performed By: #### 5 8410-2 ####[facility]CL[facility] [id number] [place] [address] [place] Nucleated RBC (Bld) [#/Vol] 10*3/uL Normal <0.01 [facility] Comment on above: Order Comment: Speci men Type: BLOOD SPECIMENOrdering Facility: [facility] Address: [address] [place] [address] Performed By: #### 5 8410-2 ####[facility] [id number] [place] [address] [place] Platelet mean volume (Bld) [Entitic vol] 8.3 fL Low 9.0-12.7 [facility] Comment on above: Order Comment: Speci men Type: BLOOD SPECIMENOrdering Facility: [facility] Address: [address] [place] [address] Performed By: #### 5 8410-2 ####[facility] [id number] [place] [address] [place] Platelets (Bld) [#/Vol] 323 10*3/uL Normal 150-400 [facility] Comment on above: Order Comment: Speci men Type: BLOOD SPECIMENOrdering Facility: [facility] Address: [address] [place] [address] Performed By: #### 5 8410-2 ####[facility] [id number] [place] [address] [place] RBC (Bld) [#/Vol] 4.46 10*6/uL Normal 3.90-5.20 [facility] Comment on above: Order Comment: Speci men Type: BLOOD SPECIMENOrdering Facility: [facility] Address: [address] [place] [address] Performed By: #### 5 8410-2 ####[facility] [id number] [place] [address] [place] WBC (Bld) [#/Vol] 5.89 10*3/uL Normal 3.70-11.00 [facility] Comment on above: Order Comment: Speci men Type: BLOOD SPECIMENOrdering Facility: [facility] Address: [address] [place] [address] Performed By: #### 5 8410-2 ####[facility] [id number] [place] [address] [place] Comprehensive metabolic 2000 panelon 02-05-2024 Albumin [Mass/Vol] 4.6 g/dL Normal 3.9-4.9 [facility] Comment on above: Order Comment: Speci men Type: BLOOD SPECIMENOrdering Facility: [facility] Address: [address] [place] [address] Performed By: #### 2 4323-8 ####[facility] [id number] [place] [address] [place] ALP [Catalytic activity/Vol] 50 U/L Normal 34-123 [facility] Comment on above: Order Comment: Speci men Type: BLOOD SPECIMENOrdering Facility: [facility] Address: [address] [place] [address] Performed By: #### 2 4323-8 ####[facility] [id number] [place] [address] [place] ALT [Catalytic activity/Vol] 10 U/L Normal 7-38 [facility] Comment on above: Order Comment: Speci men Type: BLOOD SPECIMENOrdering Facility: [facility] Address: [address] [place] [address] Performed By: #### 2 4323-8 ####[facility] [id number] [place] [address] [place] Anion gap [Moles/Vol] 8 mmol/L Normal 8-15 [facility] Comment on above: Order Comment: Speci men Type: BLOOD SPECIMENOrdering Facility: [facility] Address: [address] [place] [address] Performed By: #### 2 4323-8 ####[facility] TATA MILLTOWNCLIA [id number] [place] [address] [place] AST [Catalytic activity/Vol] 14 U/L Normal 13-35 [facility] Comment on above: Order Comment: Speci men Type: BLOOD SPECIMENOrdering Facility: [facility] Address: [address] [place] [address] Performed By: #### 2 4323-8 ####[facility]CL[facility] [id number] [place] [address] [place] Bilirubin [Mass/Vol] 0.8 mg/dL Normal 0.2-1.3 [facility] Comment on above: Order Comment: Speci men Type: BLOOD SPECIMENOrdering Facility: [facility] Address: [address] [place] [address] Performed By: #### 2 4323-8 ####[facility] [id number] [place] [address] [place] Calcium [Mass/Vol] 9.2 mg/dL Normal 8.5-10.2 [facility] Comment on above: Order Comment: Speci men Type: BLOOD SPECIMENOrdering Facility: [facility] Address: [address] [place] [address] Performed By: #### 2 4323-8 ####[facility] MILLWNCLIA [id number] [place] [address] [place] Chloride [Moles/Vol] 105 mmol/L Normal 98-107 [facility] Comment on above: Order Comment: Speci men Type: BLOOD SPECIMENOrdering Facility: [facility] Address: [address] [place] [address] Performed By: #### 2 4323-8 ####[facility] MILLWNCLIA [id number] [place] [address] [place] CO2 [Moles/Vol] 22 mmol/L Normal 22-30 [facility] Comment on above: Order Comment: Speci men Type: BLOOD SPECIMENOrdering Facility: [facility] Address: [address] [place] [address] Performed By: #### 2 4323-8 ####[facility] [id number] [place] [address] [place] Creatinine [Mass/Vol] 0.72 mg/dL Normal 0.58-0.96 [facility] Comment on above: Order Comment: Speci men Type: BLOOD SPECIMENOrdering Facility: [facility] Address: [address] [place] [address] Performed By: #### 2 4323-8 ####[facility] [id number] [place] [address] [place] Creatinine and Glomerular filtration rate.predicted panel (S/P/Bld) 106 mL/min/1.73m??? Normal >=60 [facility] Comment on above: Order Comment: Treyi men Type: BLOOD SPECIMENOrdering Facility: [facility] Address: [address] [place] [address] Result Comment: Marly mated Glomerular Filtration Rate [...] GFR. Performed By: #### 2 4323-8 ####[facility] [id number] [place] [address] [place] Glucose [Mass/Vol] 81 mg/dL Normal 74-99 [facility] Comment on above: Order Comment: Speci men Type: BLOOD SPECIMENOrdering Facility: [facility] Address: [address] [place] [address] Result Comment: The [place] Diabetes Association (ADA) provides guidance for cutoff [...] Standards of Medical Care in Diabetes 2016, [place] Diabetes Association. Diabetes Care. 2016.39(Suppl 1). Performed By: #### 2 4323-8 ####[facility] [id number] [place] [address] [place] Potassium [Moles/Vol] 3.6 mmol/L Low 3.7-5.1 [facility] Comment on above: Order Comment: Speci men Type: BLOOD SPECIMENOrdering Facility: [facility] Address: [address] [place] [address] Performed By: #### 2 4323-8 ####[facility] [id number] [place] [address] [place] Protein [Mass/Vol] 7.9 g/dL Normal 6.3-8.0 [facility] Comment on above: Order Comment: Speci men Type: BLOOD SPECIMENOrdering Facility: [facility] Address: [address] [place] [id number] Performed By: #### 2 4323-8 ####[facility] [id number] [place] [address] [place] Sodium [Moles/Vol] 135 mmol/L Low 136-144 [facility] Comment on above: Order Comment: Speci men Type: BLOOD SPECIMENOrdering Facility: [facility] Address: [address] [place] [address] Performed By: #### 2 4323-8 ####[facility] [id number] [place] [address] [place] Urea nitrogen [Mass/Vol] 12 mg/dL Normal 7-21 [facility] Comment on above: Order Comment: Speci men Type: BLOOD SPECIMENOrdering Facility: [facility] Address: [address] [place] [address] Performed By: #### 2 4323-8 ####[facility] [id number] [place] [address] [place] Insulin SerPl-aCncon 024 Insulin Qn 2.1 u[IU]/mL Low 3.0-25.0 [facility] Comment on above: Order Comment: Speci men Type: BLOOD SPECIMENOrdering Facility: [facility] Address: [address] [place] [address] Performed By: #### 2 0448-7 ####[facility] LABCLIA [id number] [place] [address] [place] Lipid 1996 panelon 4 Cholesterol [Mass/Vol] 155 mg/dL Normal <200 [facility] Comment on above: Order Comment: Speci men Type: BLOOD SPECIMENOrdering Facility: [facility] Address: [address] [place] [address] Result Comment: <200 mg/dL, Desirable 200-239 mg/dL, Borderline high >239 mg/dL, High Performed By: #### 3 016-3 ####[facility] LABCLIA [id number] [place] [address] [place]#### 33304-3 ####[facility] LABCLIA [id number] [place] [address] [place] [facility] [id number] [place] [address] [place] Cholesterol in HDL [Mass/Vol] 66 mg/dL Normal >39 [facility] Comment on above: Order Comment: Speci men Type: BLOOD SPECIMENOrdering Facility: [facility] Address: [address] [place] [address] Result Comment: 40-5 9 mg/dL, Acceptable >59 mg/dL, High: Negative risk factor for coronary heart disease <40 mg/dL, Low: Positive risk factor for coronary heart disease Performed By: #### 3 016-3 ####[facility] LABCLIA [id number] [place] [address] [place]#### 54659-1 ####[facility] LABCLIA [id number] [address] [facility] [id number] [place] [address] [place] Cholesterol in LDL [Mass/Vol] 78 mg/dL Normal <100 [facility] Comment on above: Order Comment: Speci men Type: BLOOD SPECIMENOrdering Facility: [facility] Address: [address] [place] [address] Result Comment: <100 mg/dL, Optimal 100-129 mg/dL, Near optimal/above optimal 130-159 mg/dL, Borderline high 160-189 mg/dL, High >189 mg/dL, Very high Secondary prevention optimal LDL Cholesterol levels are recommended to be < 70 mg/dL Performed By: #### 3 016-3 ####[facility] LABCLIA [id number] [place] [address] [place] QUINN#### 19393-5 ####[facility] LABCLIA [id number] [place] [address] [place] [facility] [id number] [place] [address] [place] Cholesterol in LDL/Cholesterol in HDL [Mass ratio] 1.18 {ratio} Normal <2.54 [facility] Comment on above: Order Comment: Speci men Type: BLOOD SPECIMENOrdering Facility: [facility] Address: [address] [place] [address] Result Comment: Michele adhikari: 1. National Cholesterol Education Program ATP III Guideline At-A-Glance Quick Desk Reference: National Heart, Lung, and Blood [place]. National Institutes of Health. 2001: NIH Publication No. 01-3305. 2. An International Atherosclerosis Society position paper: global recommendations for the management of dyslipidemia: executive summary, Atherosclerosis. 2014: 232(2):410-413. Performed By: #### 3 016-3 ####[facility] LABCLIA [id number] [place] [address] [place]#### 09767-4 ####[facility] LABCLIA [id number] [address] STATES OF [facility] [id number] [place] [address] [place] Cholesterol in VLDL [Mass/Vol] 11 mg/dL Normal <30 [facility] Comment on above: Order Comment: Speci men Type: BLOOD SPECIMENOrdering Facility: [facility] Address: [address] [place] [address] Performed By: #### 3 016-3 ####[facility] LABCLIA [id number] [place] [address] [place]#### 80938-8 ####[facility] LABCLIA [id number] [place] [address] [place] [facility] [id number] [place] [address] [place] Cholesterol non HDL [Mass/Vol] 89 mg/dL Normal <130 [facility] Comment on above: Order Comment: Speci men Type: BLOOD SPECIMENOrdering Facility: [facility] Address: [address] [place] [address] Result Comment: <130 mg/dL, Optimal 130-159 mg/dL, Near optimal/above optimal 160-189 mg/dL, Borderline high 190-219 mg/dL, High >219 mg/dL, Very high Secondary prevention optimal non HDL Cholesterol levels are recommended to be <100 mg/dL Performed By: #### 3 016-3 ####[facility] LABCLIA [id number] [place] [address] [place]#### 52230-5 ####[facility] LABCLIA [id number] [address] [id number] [place] [address] [place] Cholesterol.total/Cho lesterol in HDL [Mass ratio] 2.35 {ratio} Normal <5.10 [facility] Comment on above: Order Comment: Speci men Type: BLOOD SPECIMENOrdering Facility: [facility] Address: [address] [place] [address] Performed By: #### 3 016-3 ####[facility] LABCLIA [id number] [place] [address] [place]#### 78081-7 ####[facility] LABCLIA [id number] [address] [id number] [address] STATES OF [place] FASTING TIME 12 hrs Normal [facility] Comment on above: Order Comment: Speci men Type: BLOOD SPECIMENOrdering Facility: [facility] Address: [address] [place] [address] Performed By: #### 3 016-3 ####[facility] LABCLIA [id number] [address] [place]#### 02303-5 ####[facility] LABCLIA [id number] [address] [id number] [place] [address] [place] [facility] Triglyceride [Mass/Vol] 55 mg/dL Normal <150 [facility] Comment on above: Order Comment: Speci men Type: BLOOD SPECIMENOrdering Facility: [facility] Address: [address] [place] [address] Result Comment: <150 mg/dL, Normal 150-199 mg/dL, Borderline high 200-499 mg/dL, High >499 mg/dL, Very high Performed By: #### 3 016-3 ####[facility] LABCLIA [id number] [address]#### 10588-8 ####[facility] LABCLIA [id number] [address] [id number] [place] [address] [place] TSH SerPl-aCncon 02-05-2024 TSH Qn 1.790 m[IU]/L Normal 0.270-4.20 0 [facility] Comment on above: Order Comment: Speci men Type: BLOOD SPECIMENOrdering Facility: [facility] Address: [address] [place] [address] Result Comment: If t he patient is , TSH reference range varies by gestational period: First Trimester (weeks 9-12): 0.180-2.990 mIU/L Second Trimester: 0.110-3.980 mIU/L Third Trimester: 0.480-4.710 mIU/L Kel Taylor et al. A Practical Approach for the Verifications and Determination of Site- and Trimester-Specific Reference Intervals for Thyroid Function tests in . Thyroid, 2019:29:3:412-420. Jourdan E, et al. 2017 Guidelines of the [place] Thyroid Association for the Diagnosis and Management of Thyroid Disease during and the . Thyroid, 2017:27:3:315-389. Performed By: #### 3 016-3 ####[facility] LABCLIA [id number] [address]#### 08458-5 ####[facility] LABIA [id number] [place] [id number] [facility] [id number] [address] CNOVon 01-28-2024 CNOV Office Visit (OBGYWM ) -- JENNIFER MANNING ([id number]) 1980 F Date Time Provider Department 01/28/24 9:50 AM MARLENI ALMONTE OBJENNIFER During your visit today, we recorded the [...] mg/dL 0 (more content not included)... Normal [facility] US [place] 11-22-2023 Indication Abnormal uterine [...] Read By: Yudelka Carrizales M.D. MATERNAL MEDICINE [facility] US [place] 11-21-2023 Radiology Study observation (narrative) [facility] CBC panel Auto (Bld)on 02-20 Erythrocyte distribution width (RBC) [Ratio] 13.0 % 11.5 - 15.0 % [facility] Hematocrit (Bld) [Volume fraction] 38.8 % 36.0 - 46.0 % [facility] Hemoglobin (Bld) [Mass/Vol] 13.1 g/dL 11.5 - 15.5 g/dL [facility] MCH (RBC) [Entitic mass] 30.2 pg 26.0 - 34.0 pg [facility] MCHC (RBC) [Mass/Vol] 33.8 g/dL 30.5 - 36.0 g/dL [facility] MCV (RBC) [Entitic vol] 89.4 fL 80.0 - 100.0 fL [facility] Nucleated RBC (Bld) [#/Vol] <0.01 k/uL [facility] Platelet mean volume (Bld) [Entitic vol] 8.3 fL Low 9.0 - 12.7 fL [facility] Platelets (Bld) [#/Vol] 336 10*3/uL 150 - 400 k/uL [facility] RBC (Bld) [#/Vol] 4.34 10*6/uL 3.90 - 5.20 m/uL [facility] WBC (Bld) [#/Vol] 5.20 10*3/uL 3.70 - 11.00 k/uL [facility] ESTRADIOL-17B BLDon 02-21-20 E2 [Mass/Vol] 81 pg/mL [facility] FERRITIN Don 02-20-2023 Ferritin [Mass/Vol] 23.5 ng/mL 14.7 - 205.1 ng/mL [facility] HbA1c (Bld)on 02-20-2023 Average glucose Estimated from glycated hemoglobin (Bld) [Mass/Vol] 100 mg/dL [facility] HbA1c (Bld) [Mass fraction] 5.1 % 4.3 - 5.6 % [facility] INSULIN ASSAY BLOODon 2022 Insulin Qn 2.8 u[IU]/mL Low 3.0 - 25.0 mU/L [facility] Iron and Iron binding capaci ty panelon 02-20-2023 Iron [Mass/Vol] 64 ug/dL 41 - 186 ug/dL [facility] Iron binding capacity [Mass/Vol] 379 ug/dL 232 - 386 ug/dL [facility] Iron/TIBC [Molar ratio] 16.9 % 15.0 - 57.0 % [facility] T4 FREE/FREE THYROXon 2022 Free T4 [Mass/Vol] 1.2 ng/dL 0.9 - 1.7 ng/dL [facility] TSH Don 02-20-2023 TSH Qn 1.420 m[IU]/L 0.270 - 4.200 mIU/L [facility] VITAMIN B12 BLOODon 02-21-20 Cobalamin (Vitamin B12) [Mass/Vol] 647 pg/mL 232 - 1,245 pg/mL [facility] VITAMIN D 25 HYDROXYon 02-20 25-hydroxyvitamin D3 [Mass/Vol] 45.0 ng/mL 31.0 - 80.0 ng/mL [facility] UA DIP, URINE (POC)on 2021 BILIRUBIN UA (POCT) Negative Negative [facility] CLARITY UA (POCT) Clear [facility] COLOR UA (POCT) Yellow [facility] GLUCOSE UA (POCT) Negative Negative mg/dL [facility] HEMOGLOBIN/BLOOD UA (POCT) Large Abnormal Negative [facility] KETONE UA (POCT) Negative Negative mg/dL [facility] LEUKOCYTES UA (POCT) Negative Negative [facility] NITRITE UA (POCT) Negative Negative [facility] PH UA (POCT) 5.5 4.5 - 8.0 [facility] Protein Ql (U) Negative Negative mg/dL [facility] SPECIFIC GRAVITY UA (POCT) 1.015 1.005 - 1.030 [facility] UROBILINOGEN UA (POCT) 0.2 E.U./dL Normal E.U./dL [facility] Urinalysis - DIPSTICKon 11-28 Appearance (U) clear [employer]io Other Bilirubin Ql (U) -- [employer] Other Color (U) light orange [employer] Other Glucose Ql (U) -- apomio Other Hemoglobin Ql (U) moderate [employer] Other Ketones Ql (U) -- [employer]io Other Leukocyte esterase Test strip Ql (U) -- [employer] Other Nitrite Ql (U) -- [employer]omio Other pH (U) -- [employer] Other Protein Ql (U) -- [employer]io Other Specific gravity (U) [Rel density] 1.005 [employer] Other Urobilinogen (U) [Mass/Vol] -- [employer] Other Urinalysis - DIPSTICK Nor [employer] Other Urine Cultureon 12-25-2021 Urine Culture 15,000 [employer] Other Urine Culture <16 Susceptible apomio Other Urine Culture <8 Susceptible apomio Other Urine Culture <4 Susceptible apomio Other Urine Culture <2 Susceptible apomio Other Urine Culture <1 Susceptible apomio Other Urine Culture <0.5 Susceptible apomio Other Urine Culture <32 Susceptible apomio Other Urine Culture >8 Resistant [employer] Other Urine Culture <2/38 Susceptible apomio Other Bacteria identified Cx Nom (U) ORGANISM: Escherichia coli (O:ESCCOL) [place] Count 15,000 Aerobic ADRIAN Charge (NUC86) SUSCEPTIBILITY [...] RESISTANT TO ALL B-LACTAM DRUGS. PERFORMED BY: [place] [address] PATHOLOGIST SVP AMADO ROME M.D. 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 DISPOSITION Diagnosis/Annotation: ED Dx Name:Burning with urination Code:R30.0 Disposition: discharged Type: home CONSULT CRITICAL CARE TIME Is this a critically ill patient: no Electronic Signatures: Michael Patton (MAINTENANCE TECHNICIAN 3RD SHIFT-IT PROJECT LEAD) (Signed 07-Oct-2021 11:47) Authored: ED Notes, HPI, PMH, PE, MDM/ED Course, Clinical Impression, Attestation, Chart Review, Scores Last Updated: 07-Oct-2021 11:47 by Michael Patton (MAINTENANCE TECHNICIAN 3RD SHIFT-IT PROJECT LEAD) [facility] URINE CULTURE,BACTERIALon URINE CULTURE,BACTERIAL PATIENT: JENNIFER MANNING LOCATION: [facility] BILL#: [id number] : 78 AGE: SEX: F ORDERED BY: MICHAEL PATTON SOURCE: URINE COLLECTED: 10/07/21 14:00 ANTIBIOTICS AT JOE.: RECEIVED : 10/07/21 21:56 SITE: Clean Catch/Voided R E S U L T S URINE CULTURE,BACTERIAL FINAL 10/08/21 14:59 NO SIGNIFICANT GROWTH. Normal [facility] Comment on above: Performed By: #### [facility] #### [facility] [address] 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 Is : no REVIEW OF SYSTEMS CONSTITUTIONAL: POSITIVE for: fever Negative for: chills CARDIOVASCULAR: Negative for: chest pain RESPIRATORY: Negative for: dyspnea GASTROINTESTINAL: Negative for: nausea and vomiting; GENITOURINARY: POSITIVE for: dysuria, frequency and urgency; Negative for: hematuria; MUSCULOSKELETAL: POSITIVE for: back pain All other systems reviewed and are negative RESULTS/VITAL SIGNS VITAL SIGNS: T PRBP SpO2O2(LPM) %FiO2 Method 25-Apr-2021 12:30:[id number]/77 97 PHYSICAL EXAM CONSTITUTIONAL: Appearance: well appearing [...] ill patient: no Electronic Signatures: Tanja Gil (MAINTENANCE TECHNICIAN 3RD SHIFT-IT PROJECT LEAD) (Signed 25-Apr-2021 14:36) Authored: HPI, PMH, ROS, PE, Results/Vital Sig (more content not included)... Normal [facility] URINE CULTURE,BACTERIALon URINE CULTURE,BACTERIAL PATIENT: JENNIFER MANNING LOCATION: [facility]#: [id number] : 78 AGE: SEX: F ORDERED BY: TANJA GIL SOURCE: URINE COLLECTED: 04/25/21 13:23 ANTIBIOTICS AT JOE.: RECEIVED : 04/25/21 23:06 SITE: R E S U L T S URINE CULTURE,BACTERIAL FINAL 04/26/21 19:12 NO SIGNIFICANT GROWTH. Normal [facility] Comment on above: Performed By: #### U [facility] #### [facility] [address] 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 : no REVIEW OF SYSTEMS CONSTITUTIONAL: Negative for: chills and fever CARDIOVASCULAR: Negative for: chest pain RESPIRATORY: Negative for: dyspnea GASTROINTESTINAL: Negative for: nausea and vomiting; GENITOURINARY: POSITIVE for: dysuria, frequency and urgency; Negative for: hematuria; MUSCULOSKELETAL: Negative for: back pain All other systems reviewed and are negative RESULTS/VITAL SIGNS VITAL SIGNS: T PRBP SpO2O2(LPM) %FiO2 Method 31-Jan-2021 12:51:[id number]/75 98 PHYSICAL EXAM CONSTITUTIONAL: Appearance: well appearing [...] ill patient: no Electronic Signatures: Tanja Gil (MAINTENANCE TECHNICIAN 3RD SHIFT-IT PROJECT LEAD) (Signed 31-Jan-2021 14:37) Authored: HPI, PMH, ROS, PE, Results/Vital Signs, MDM/ED Course, Clinical Impre (more content not included)... Normal [facility] URINE CULTURE,BACTERIALon URINE CULTURE,BACTERIAL PATIENT: JENNIFER MANNING LOCATION: [facility]#: [id number] : 78 AGE: SEX: F ORDERED BY: TANJA GIL SOURCE: URINE COLLECTED: 01/31/21 13:32 ANTIBIOTICS AT JOE.: RECEIVED : 01/31/21 23:20 SITE: R E S U L T S URINE CULTURE,BACTERIAL FINAL 02/01/21 17:30 NO SIGNIFICANT GROWTH. Normal [facility] Comment on above: Performed By: #### U [facility] #### [facility] [address] [place] [address] Primary Care Visit (Text/For ms)on 03-02-2020 Primary Care Visit (Text/Forms) Diagnoses/Problems Assessed Vitamin B12 deficiency (266.2) (E53.8) Generalized anxiety disorder (300.02) (F41.1) Orders Generalized anxiety disorder Start: Citalopram Hydrobromide 10 MG Oral Tablet (CeleXA); Take 1 tablet daily Follow-up visit in 3 weeks Outpatient Follow-up Status: Complete Done: [id number] Vitamin B12 deficiency Vitamin B12, Serum; Specimen Source:Blood (BLD); Status:Active; Requested for:83Hoc5674; Provider Impressions Provider Impressions Free Text Note [...] NonMedication Pollen Ragweed Vitals Vital Signs Recorded: 30Qwd6979 08:28AM Heart Rate: 72 Systolic: 122 Diastolic: [...] Mar 06 2020 7:20PM EST (Author) Normal [facility] C Reactive Protein, Serumon 02-29-2020 CRP [Mass/Vol] 0.26 mg/dL [facility] Work Phone: Comment on above: REF VALUE< 1.00 Complete Blood Count + Diffe rentialon 02-29-2020 Basophils (Bld) [#/Vol] 0.10 {x10E9/L} See Below [facility] Work Phone: Comment on above: Reference Range: 0.0 0 - 0.10 Basophils/100 WBC (Bld) 0.8 % 0.0 - 2.0 [facility] Work Phone: Eosinophils (Bld) [#/Vol] 0.80 {x10E9/L} above high threshold See Below [facility] Work Phone: Comment on above: Reference Range: 0.0 0 - 0.70 Eosinophils/100 WBC (Bld) 11.5 % 0.0 - 6.0 [facility] Work Phone: Erythrocyte distribution width (RBC) [Ratio] 15.0 % above high threshold See Below [facility] Work Phone: Comment on above: Reference Range: 11. 5 - 14.5 Hematocrit (Bld) [Volume fraction] 38.1 % See Below [facility] Work Phone: Comment on above: Reference Range: 36. 0 - 46.0 Hemoglobin (Bld) [Mass/Vol] 12.8 g/dL See Below [facility] Work Phone: Comment on above: Reference Range: 12. 0 - 16.0 Lymphocytes (Bld) [#/Vol] 1.70 {x10E9/L} See Below [facility] Work Phone: Comment on above: Reference Range: 1.2 0 - 4.80 Lymphocytes/100 WBC (Bld) 24.3 % See Below [facility] Work Phone: Comment on above: Reference Range: 13. 0 - 44.0 MCHC (RBC) [Mass/Vol] 33.5 g/dL See Below [facility] Work Phone: Comment on above: Reference Range: 32. 0 - 36.0 MCV (RBC) [Entitic vol] 88 fL 80 - 100 [facility] Work Phone: Monocytes (Bld) [#/Vol] 0.40 {x10E9/L} See Below [facility] Work Phone: Comment on above: Reference Range: 0.1 0 - 1.00 Monocytes/100 WBC (Bld) 6.3 % 2.0 - 10.0 [facility] Work Phone: Neutrophils (Bld) [#/Vol] 4.00 {x10E9/L} See Below [facility] Work Phone: Comment on above: Reference Range: 1.2 0 - 7.70 Percent differential counts (%) should be interpreted in the context of the absolute cell counts (cells/L). Neutrophils/100 WBC (Bld) 57.1 % See Below [facility] Work Phone: Comment on above: Reference Range: 40. 0 - 80.0 Platelets (Bld) [#/Vol] 356 {x10E9/L} 150 - 450 [facility] Work Phone: RBC (Bld) [#/Vol] 4.36 {x10E12/L} See Below [facility] Work Phone: Comment on above: Reference Range: 4.0 0 - 5.20 WBC (Bld) [#/Vol] 7.0 {x10E9/L} 4.4 - 11.3 [facility] Work Phone: WBC (Bld) [#/Vol] 0.2 {/100_WBC} [facility] Work Phone: Ferritin, Serumon 02-29-2020 Ferritin [Mass/Vol] 21 ug/L 8 - 150 [facility] Work Phone: Metabolic Panelon 02-29-2020 ALP [Catalytic activity/Vol] 49 U/L 33 - 110 [facility] Work Phone: Anion gap [Moles/Vol] 11 mmol/L 10 - 20 [facility] Work Phone: Bilirubin [Mass/Vol] 0.3 mg/dL 0.0 - 1.2 [facility] Work Phone: Calcium [Mass/Vol] 9.4 mg/dL 8.6 - 10.3 [facility] Work Phone: Chloride [Moles/Vol] 104 mmol/L 98 - 107 [facility] Work Phone: CO2 [Moles/Vol] 24 mmol/L 21 - 32 [facility] Work Phone: Creatinine [Mass/Vol] 0.65 mg/dL See Below [facility] Work Phone: Comment on above: Reference Range: 0.5 0 - 1.05 Glucose [Mass/Vol] 102 mg/dL above high threshold 74 - 99 [facility] Work Phone: Potassium [Moles/Vol] 3.6 mmol/L 3.5 - 5.3 [facility] Work Phone: Protein [Mass/Vol] 7.7 g/dL 6.4 - 8.2 [facility] Work Phone: Sodium [Moles/Vol] 135 mmol/L below low threshold 136 - 145 [facility] Work Phone: Urea nitrogen [Mass/Vol] 12 mg/dL 6 - 23 [facility] Work Phone: Otheron 02-29-2020 Albumin BCP dye [Mass/Vol] 4.2 g/dL 3.4 - 5.0 [facility] Work Phone: ALT With P-5'-P [Catalytic activity/Vol] 15 U/L 7 - 45 [facility] Work Phone: Comment on above: Patients treated wit h Sulfasalazine may generate falsely decreased results for ALT. AST With P-5'-P [Catalytic activity/Vol] 22 U/L 9 - 39 [facility] Work Phone: >60 >60 [facility] Work Phone: Comment on above: CALCULATIONS OF MARLY MATED GFR ARE PERFORMED USING THE MDRD STUDY EQUATION FOR THE IDMS-TRACEABLE CREATININE METHODS. CLIN CHEM 2007;53:766-72 Vitamin B12, Serumon 020 Cobalamin (Vitamin B12) [Mass/Vol] 339 pg/mL 211 - 911 [facility] Work Phone: Vitamin-D 1,25-DihydroxyTatianna 02-29-2020 Calcitriol [Mass/Vol] 62.8 pg/mL 19.9-79.3 [facility] Work Phone: Comment on above: INTERPRETIVE INFORMA TION: Vitamin D, 1,25-DihydroxyThis test is primarily indicated during patient evaluation for hypercalcemia and renal failure. A normal result does not rule out Vitamin D deficiency. The recommended test for diagnosing Vitamin D deficiency is Vitamin D 25-hydroxy.Performed By: [facility] [place] [address] [id number] Director: Garcia Farah MD, MS Established Visit (Gastroent erology)on 02-18-2020 Established Visit (Gastroenterology) Diagnoses/Problems Assessed Crohn's disease (555.9) (K50.90) Orders Crohn's disease C Reactive Protein, Serum; Specimen Source:Blood (BLD); Status:Active; Requested for:04Nzu5276; Perform:Lab Services - Lab To Draw (Blood Test); Due:40Bwv4234;Ordered; For:Crohn's disease; Ordered By:Brandon Roca; Complete Blood Count + Differential; Specimen Source:Blood (BLD); Status:Active; Requested for:84Vbk5498; Perform:Lab Services - Lab To Draw (Blood Test); Due:08Iub4902;Ordered; For:Crohn's disease; Ordered By:Brandon Roca; Comprehensive Metabolic Panel; Status:Active; Requested for:96Sfg0360; Perform:Lab Services - Lab To Draw (Blood Test); Due:60Hhf6079;Ordered; For:Crohn's disease; Ordered By:Brandon Roca; Ferritin, Serum; Specimen Source:Blood (BLD); Status:Active; Requested for:17Obd3118; Perform:Lab Services - Lab To Draw (Blood Test); Due:15Diu9363;Ordered; For:Crohn's disease; Ordered By:Brandon Roca; Vitamin B12, Serum; Specimen Source:Blood (BLD); Status:Active; Requested for:99Inb7596; Perform:Lab Services - Lab To Draw (Blood Test); Due:82Hrx9390;Ordered; For:Crohn's disease; Ordered By:Brandon Roca; Vitamin-D 1,25-Dihydroxy, Level; Specimen Source:Blood (BLD); Status:Active; Requested for:32Bhl7789; Perform:Lab Services - Lab To Draw (Blood Test); Due:17Qfa4814;Ordered; For:Crohn's disease; Ordered By:Brandon Roca; Provider Impressions [...] motrin with this. Vitals Vital Signs Recorded: 73Xjx4966 10:38AM Cyfwgyswndc81.6 F Bifjnnit796 Gelkvvbof07 Height5 ft 6 in Ugmfvc027 lb BMI Dcuxgsrotf92.12 BSA Calculated2 Physical Exam Constitutional General appearance: In no acute distress . Eyes Anicteric Sclerae . Pulmonary Auscultation of lungs: Clear. Cardiovascular Auscultation of heart: RRR without murmur. Examination of extremities for edema: Normal. Abdomen Soft, non-tender. Bowel sounds normal. No hepatomegaly or splenomegaly. Signatures Electronically signed by : Brandon Roca DO; Feb 18 2020 12:41PM EST (Author) Normal [employer] Telephone Note_on 12-08-19 Telephone Note_ Message Recorded as Task [...] let her know what is going on. [facility] may have grabbed this and scheduled. CT was denied so Dr. Hernandez got a MRI approved. Thanks. Belgica Tucker - 08 Dec 2019 11:20 AM TASK EDITED 12/11/2019 1pm no prep Belgica Tucker - 08 Dec 2019 1:24 PM TASK EDITED Patient verbalized understanding. Signatures Electronically signed by : Belgica Tucker MA; Dec 08 2019 1:25PM EST (Author) Normal [facility] [place] CCD-CCDAon 12-03-2019 [facility] [place] CCD-CCDA conversion failed Normal [facility] BELLE - Automatic [employer] [facility] [place], [place] JENNIFER MANNING 1980 Date of Female Sex [id number] Patient Id [address] [place], [place] [id number] AddressEnglish (preferred) Language White Race Not or Ethnicity Summary of Care Clinical Content Allergies and Adverse Reactions <#CZ9W9DNO> Encounters <#DI3YQDXJ> Family History <#VG4QJUEY> Functional Status <#ZB1SSHJZ> Immunization <#JS3LBHFX> Instructions <#QE4F2RAF> Medications <#SC8YNSCN> Plan of Care <#JS2YPULX> Problems <#RK9Z8KUG> Procedures <#BU8RYMKY> Results <#XL6UPHBU> Social History <#YE2BPOFD> Vital Signs <#SP6Z2WMX> Other Document Details Health Care Providers Functional [...] R77.8) Axillary lump (782.2, R22.30) Medicationstop <#top> NameDBella Levothyroxine Sodium 75 MCG Oral Tablet Take 1 tablet daily Quantity: 90 Refills: 2 SharitakariAnderLito Start : 24-Aug-2019 Naproxen 500 MG Oral Tablet TAKE 1 TABLET Twice daily. Take with food and 8 oz of water. Do not take ibuprofen, aleve or motrin with this. Quantity: 28 Refills: 0 Tourlas, Lito Start : 02-Nov-2019 Allergies and Adverse Reactionstop <#top> NameDatesPedro morphine (Allergy) Pollen (Allergy)Reaction: Sneezing Ragweed (Allergy)Reaction: Sneezing Procedurestop <#top> ProcedureDatesDetails Vitamin B12, SerumDate: 02-Dec-2019 Ferritin, SerumDate: 02-Dec-2019 MRI Shoulder w/wo ContrastDate: 03-Dec-2019 History of sectionCompleted History of ColonoscopyCompleted History of Esophagogastroduodenoscopy Completed Immunizationtop <#top> Drake Immunizations not documented Family Historytop <#top> Mother NameDamitaPavelchilango Family history of mitral valve disorder (V17.49, Z82.49) Sister NameDBella Family history of mitral valve disorder (V17.49, Z82.49) Social Historytop <#top> Drake - Smoking Status Drake Never smoked tobacco (finding) Vital Signstop <#top> DateTestResultDetails 02-Dec-2019 8:44Systolic blood revlvomn230 mm[Hg] Diastolic blood otjfkqbv27 mm[Hg] Body vlyxci84 in Ajrvmh480.0 lb Body mass index (BMI) [Ratio]32.12 kg/m2 Body surface area Derived from formula2 m2 Heart Rate68 /min Resultstop <#top> DateDescriptionValueDetail s 17-Nov-2019 10:45Mamm - Digital Diagnostic Mammogram Bilateral w/ Tomosynthesis Mamm Bilateral Digital with TomosynthesisInterpreted by: RAJ BARRETT 11/28/19 13:34 Patient Name: JENNIFER MANNING STUDY: Digital diagnostic mammogram bilateral, right breast ultrasound; 11/17/2019 10:45 am; 11/17/2019 11:18 am ACCESSION NUMBER(S): [id number]; [id number] ORDERING CLINICIAN: LITO HERNANDEZ INDICATION: Right axillary [...] ultrasound should not preclude further e Normal [facility] Primary Care Visit (Text/For ms)on 12-02-2019 Primary Care Visit (Text/Forms) Diagnoses/Problems Assessed Vitamin B12 deficiency (266.2) (E53.8) Low ferritin level (790.6) (R79.0) Elevated total protein (790.99) (R77.8) Orders Low ferritin level Ferritin, Serum; Specimen Source:Blood (BLD); Status:Active; Requested for:01Feb2020; Low ferritin level, Vitamin B12 deficiency Follow-up visit in 3 months Outpatient Follow-up Status: Complete Done: 02Dec2019 Vitamin B12 deficiency Administered: Cyanocobalamin 1000 MCG/ML Injection Solution Vitamin B12, Serum; Specimen Source:Blood (BLD); Status:Active; Requested for:[id number]; Provider Impressions Provider Impressions Free Text Note [...] slightly elevated - referral was placed to [facility] (per pt's request) Her B12 level [...] Dec 02 2019 9:20AM EST (Author) Normal [employer] [facility] [place] CCD-CCDAon 12-01-2019 [facility] [place] CCD-CCDA conversion failed Normal [employer] Metabolic Panelon 11-28-2019 ALP [Catalytic activity/Vol] 45 U/L 33 - 110 [facility] Work Phone: Anion gap [Moles/Vol] 10 mmol/L 10 - 20 [facility] Work Phone: Bilirubin [Mass/Vol] 0.4 mg/dL 0.0 - 1.[address] [facility] [employer] Work Phone: Calcium [Mass/Vol] 9.3 mg/dL 8.6 - 10.3 [facility] Work Phone: Chloride [Moles/Vol] 105 mmol/L 98 - 107 [facility] Work Phone: CO2 [Moles/Vol] 26 mmol/L 21 - 32 [facility] Work Phone: Creatinine [Mass/Vol] 0.55 mg/dL See Below [facility] Work Phone: Comment on above: Reference Range: 0.5 0 - 1.05 Glucose [Mass/Vol] 86 mg/dL 74 - 99 [facility] Work Phone: Potassium [Moles/Vol] 4.0 mmol/L 3.5 - 5.3 [facility] Work Phone: Protein [Mass/Vol] 8.3 g/dL above high threshold 6.4 - 8.2 [facility] Work Phone: Sodium [Moles/Vol] 137 mmol/L 136 - 145 [facility] Work Phone: Urea nitrogen [Mass/Vol] 10 mg/dL 6 - 23 [facility] Work Phone: Otheron 11-28-2019 Albumin BCP dye [Mass/Vol] 4.1 g/dL 3.4 - 5.0 [facility] Work Phone: ALT With P-5'-P [Catalytic activity/Vol] 9 U/L 7 - 45 [facility] Work Phone: Comment on above: Patients treated wit h Sulfasalazine may generate falsely decreased results for ALT. AST With P-5'-P [Catalytic activity/Vol] 13 U/L 9 - 39 [facility] Work Phone: >60 >60 [facility] Work Phone: Comment on above: CALCULATIONS OF MARLY MATED GFR ARE PERFORMED USING THE MDRD STUDY EQUATION FOR THE IDMS-TRACEABLE CREATININE METHODS. CLIN CHEM 2007;53:766-72 Otheron 11-23-2019 Please click on the link to view the study images Normal [facility] Work Phone: Otheron 11-17-2019 MG Breast screening Interpreted by: RAJ BARRETT11/28/19 13:34MRN: [id number] Name: JENNIFER MANNING STUDY:Digital diagnostic mammogram bilateral, right breast ultrasound;11/17/2019 10:45 am; 11/17/2019 11:18 am [id number] ORDERING CLINICIAN:LITO HERNANDEZ INDICATION:Right axillary mass. COMPARISON:Comparison [...] signed by: RAJ BARRETT 11/28/19 13:34 Normal [facility] Work Phone: MG Breast screening Please click on the link to view the study images Normal [facility] Work Phone: MG Breast diagnostic Interpreted by: RAJ BARRETT11/28/19 13:34MRN: [id number] Name: JENNIFER MANNING STUDY:Digital diagnostic mammogram bilateral, right breast ultrasound;11/17/2019 10:45 am; 11/17/2019 11:18 am [id number] ORDERING CLINICIAN:LITO HERNANDEZ INDICATION:Right axillary mass. COMPARISON:Comparison [...] signed by: RAJ BARRETT 11/28/19 13:34 Normal [facility] Work Phone: Otheron 11-02-2019 XR Shoulder 2 views Interpreted by: RAJ BARRETT11/02/19 09:28MRN: [id number] Name: JENNIFER MANNING STUDY:SHOULDER, CMPLT, MIN 2 [...] signed by: RAJ BARRETT 11/02/19 09:28 Normal [facility] Work Phone: Primary Care Visit (Text/For ms)on [...] NonMedication Pollen Ragweed Vitals Vital Signs Recorded: [id number] 08:02AM Heart Rate: 72 Systolic: 118 Diastolic: [...] Nov 02 2019 12:53PM EST (Author) [facility] Primary [facility] Visit (Text/For ms)on 08-31-2019 Primary [...] of lymph nodes in axillae: Normal. Normal [facility] Established Visit (Gastroent erology)on 08-20-2019 Established Visit (Gastroenterology) Diagnoses/Problems Assessed Crohn's disease (555.9) (K50.90) Orders Crohn's disease Start: Azithromycin 250 MG Oral Tablet; TAKE DIRECTED Rx By: Brandon Roca; Dispense: 0 Days ; #: Sufficient Tablet; Refill: 0;For: Crohn's disease; NATA = N; Sent To: [facility] 1448 C Reactive Protein, Serum; Specimen Source:Blood (D); Status:Active; Requested for:20Aug2019; Perform:Lab Services - Lab To Draw (Blood Test); Due:18Nov2019;Ordered; For:Crohn's disease; Ordered By:Brandon Roca; Complete Blood Count; Specimen Source:Blood (D); Status:Active; Requested for:20Aug2019; Perform:Lab Services - Lab To Draw (Blood Test); Due:18Nov2019;Ordered; For:Crohn's disease; Ordered By:Brandon Roca; Ferritin, Serum; Specimen Source:Blood (D); Status:Active; Requested for:20Aug2019; Perform:Lab Services - Lab To Draw (Blood Test); Due:[id number];Ordered; For:Crohn's disease; Ordered By:Brandon Roca; Vitamin B12, Serum; Specimen Source:Blood (BLD); Status:Active; Requested for:20Aug2019; Perform:Lab Services - Lab To Draw (Blood Test); Due:98Svg5450;Ordered; For:Crohn's disease; Ordered By:Brandon Roca; Vitamin-D 1,25-Dihydroxy, Level; Specimen Source:Blood (BLD); Status:Active; Requested for:20Aug2019; Perform:Lab Services - Lab To Draw (Blood Test); Due:[id number];Ordered; For:Crohn's disease; Ordered By:Brandon Roca; Provider Impressions Continue B12 1000 g every 4 weeks. Follow-up labs in 3 months to include B12 levels vitamin D and iron levels. Given prescription for Zithromax 250 mg 1 to be taken for 5 days for traveler's diarrhea while traveling to [place]. Chief Complaint Follow up to discuss scope [...] PM Vitals Vital Signs Recorded: 20Aug2019 04:07PM Zkyzawul193 Mcayqnfun67 Height5 ft 6 in Jmtcma174 lb BMI Jxbdpydpor31.08 BSA Calculated1.89 Physical Exam Constitutional General appearance: [...] disease Colonoscopy; Status:Hold For - Scheduling; Requested for:[id number]; Perform:[facility]; Due:14Oct2019;Ordered; Stat; For:Crohn's disease; Ordered By:Brandon Roca; [...] Basophils #/vol (Bld) 0.1 E3/mcL Normal 0.0-0.2 [facility] Comment on above: Order Comment: Order Added by Discern Expert. Performed By: #### 2 [id number] #### RONNIE RemHemo [facility] [place] [address] Basophils/100 WBC (Bld) 0.8 % Normal 0.0-2.0 [facility] Comment on above: Order Comment: Order Added by Discern Expert. Performed By: #### 2 [id number] #### RONNIE RemHemo [address] [place] [address] Eos Absolute 0.7 E3/mcL Normal 0.0-0.7 [facility] Comment on above: Order Comment: Order Added by Discern Expert. Performed By: #### 2 [id number] #### RONNIE RemHemo [address] [place] [address] Eosinophils/100 WBC (Bld) 10.5 % Normal 0.0-11.0 [facility] Comment on above: Order Comment: Order Added by Discern Expert. Performed By: #### 2 [id number] #### RONNIE RemHemo [address] [place] [address] Lymphocytes #/vol (Bld) 1.7 E3/mcL Normal 1.2-3.4 [facility] Comment on above: Order Comment: Order Added by Discern Expert. Performed By: #### 2 [id number] #### RONNIE MinorHemo [address] [place] [address] Lymphocytes/100 WBC (Bld) 27.4 % Normal 20.0-55.0 [facility] Comment on above: Order Comment: Order Added by Discern Expert. Performed By: #### 2 [id number] #### RONNIE MinorHemo [address] [place] [address] [place] Absolute 0.4 E3/mcL Normal 0.0-0.7 [facility] Comment on above: Order Comment: Order Added by Discern Expert. Performed By: #### 2 [id number] #### RONNIE MinorHemo [address] [place] [address] Monocytes/100 WBC (Bld) 6.5 % Normal 0.0-10.0 [facility] Comment on above: Order Comment: Order Added by Discern Expert. Performed By: #### 2 [id number] #### RONNIE MinorHemo [address] [place] [address] Neutro Absolute 3.5 E3/mcL Normal 1.4-6.5 [facility] Comment on above: Order Comment: Order Added by Discern Expert. Performed By: #### 2 [id number] #### RONNIE MinorHemo [address] [place] [address] Neutro Auto 54.8 % Normal 37.0-75.0 [facility] Comment on above: Order Comment: Order Added by Discern Expert. Performed By: #### 2 [id number] #### RONNIE MinorHemo [address] [place] [address] CBC w/ Auto Diffon 9 Erythrocyte distribution width Ratio (RBC) 13.4 % Normal 11.5-14.5 [facility] Comment on above: Performed By: #### 2 026534 #### RONNIE RemHemo [address] [place] [address] Hematocrit Volume Fraction (Bld) 39.3 % Normal 36.0-48.0 [facility] Comment on above: Performed By: #### 2 189905 #### RONNIE MinorHemo [address] [place] [address] Hemoglobin mass conc (Bld) 13.4 g/dL Normal 12.0-16.0 [facility] Comment on above: Performed By: #### 2 297644 #### RONNIE RemHemo [address] [place] [address] MCH Entitic mass (RBC) 29.8 pg Normal 27.0-31.0 [facility] Comment on above: Performed By: #### 2 472131 #### RONNIE MinorHemo [address] [place] [id number] MCHC mass conc (RBC) 34.1 g/dL Normal 33.0-37.0 [facility] Comment on above: Performed By: #### 2 276665 #### RONNIE RemHemo [address] [place], [place] [id number] MCV Entitic volume (RBC) 87.5 fL Normal 78.0-100.0 [facility] Comment on above: Performed By: #### 2 045927 #### RONNIE RemHemo [address] [place] [address] Platelet mean volume Entitic volume (Bld) 7.0 fL Low 7.4-11.0 [facility] Comment on above: Performed By: #### 2 398433 #### RONNIE RemHemo [address] [place] [address] Platelets #/vol (Bld) 338 E3/mcL Normal 130-400 [facility] Comment on above: Performed By: #### 2 166898 #### RONNIE RemHemo [address] [place] [address] RBC #/vol (Bld) 4.49 E6/mcL Normal 3.90-5.40 [facility] Comment on above: Performed By: #### 2 098892 #### RONNIE RemHemo [address] [place] [address] WBC #/vol (Bld) 6.3 E3/mcL Normal 3.6-11.0 [facility] Comment on above: Performed By: #### 2 683505 #### RONNIE MinorHemo [address] [place] [address] CMPon 11-11-2018 Albumin mass conc 4.1 g/dL Normal 3.4-5.0 [facility] Comment on above: Performed By: #### 2 496984 #### RONNIE [employer]Chem [address] [place] [address] Albumin/Globulin mass ratio 1.2 {ratio} Normal 1.1-1.9 [facility] Comment on above: Performed By: #### 2 318176 #### RONNIE [employer] [address] [place] [address] Alk Phos 51 Int._Unit/L Normal 33-110 [facility] Comment on above: Performed By: #### 2 029373 #### RONNIE [employer] [address] [place] [address] ALT enzyme act/vol 11 Int._Unit/L Normal 7-45 [facility] Comment on above: Performed By: #### 2 551737 #### RONNIE [employer] [address] [place] [address] Anion gap molar conc 8 mmol/L Low 10-20 [facility] Comment on above: Performed By: #### 2 144656 #### RONNIE [employer] [address] [place] [address] AST enzyme act/vol 14 Int._Unit/L Normal 9-39 [facility] Comment on above: Performed By: #### 2 329818 #### RONNIE [employer] [address] [place] [address] Bili Total 0.60 mg/dL Normal 0.00-1.20 [facility] Comment on above: Performed By: #### 2 707957 #### RONNIE [employer] [address] [place] [address] Calcium mass conc 9.2 mg/dL Normal 8.6-10.3 [facility] Comment on above: Performed By: #### 2 085359 #### RONNIE [employer] [address] [place] [address] Chloride molar conc 105 mmol/L Normal 98-107 [facility] Comment on above: Performed By: #### 2 345450 #### RONNIEYordan [employer] [address] [place] [address] CO2 molar conc 28.0 mmol/L Normal 21.0-32.0 [facility] Comment on above: Performed By: #### 2 224679 #### RONNIE [employer] [address] [place] [address] Creatinine mass conc 0.6 mg/dL Normal 0.5-1.1 [facility] Comment on above: Performed By: #### 2 552153 #### RONNIE [employer] [address] [place] [address] Globulin mass conc (S) 3.0 g/dL Normal 2.0-4.0 [facility] Comment on above: Performed By: #### 2 476617 #### RONNIE [employer] [address] [place] [address] Glucose mass conc 86 mg/dL Normal 70-99 [facility] Comment on above: Performed By: #### 2 030414 #### RONNIE [employer] [address] [place] [address] Potassium molar conc 3.9 mmol/L Normal 3.5-5.3 [facility] Comment on above: Performed By: #### 2 128043 #### RONNIE [employer] [address] [place] [address] Protein mass conc 7.4 g/dL Normal 6.4-8.2 [facility] Comment on above: Performed By: #### 2 710176 #### RONNIE [employer] [address] [place] [address] Sodium molar conc 137 mmol/L Normal 136-145 [facility] Comment on above: Performed By: #### 2 857946 #### RONNIE [employer] [address] [place] [address] Urea nitrogen mass conc 8 mg/dL Normal 6-23 [facility] Comment on above: Performed By: #### 2 384567 #### RONNIE [employer] [address] [place] [address] Urea nitrogen/Creatinine mass ratio 13.3 ratio Normal 5.4-30.0 [facility] Comment on above: Performed By: #### 2 010150 #### RONNIE [employer] [address] [place] [address] Free T3on 11-11-2018 T3 free mass conc 4.0 pg/mL High 2.5-3.9 [facility] Comment on above: Performed By: #### 2 [id number] #### RONNIE [employer] [address] [place] [address] Free T4on 11-11-2018 T4 free mass conc 0.65 ng/dL Normal 0.58-1.64 [facility] Comment on above: Result Comment: Angella ents receiving more than 5mg/day of biotin may have interference in test results. A sample should be taken no sooner than eight hours after previous dose. Performed By: #### 2 888252 #### RONNIE MinorChem [facility] [place] [address] Lipid Profileon 11-11-2018 Cholesterol in HDL mass conc 56 mg/dL Normal 40-60 [facility] Comment on above: Performed By: #### 3 [id number] #### RONNIE [employer] [address] [place] [address] Cholesterol in LDL mass conc 90 mg/dL Normal 0-130 [facility] Comment on above: Performed By: #### 3 [id number] #### RONNIE [employer] [address] [place] [address] Cholesterol in VLDL mass conc 15 mg/dL Normal 0-40 [facility] Comment on above: Performed By: #### 3 [id number] #### RONNIE [employer] [address] [place] [address] Cholesterol mass conc 161 mg/dL Normal 0-199 [facility] Comment on above: Performed By: #### 3 [id number] #### RONNIE [employer] [address] [place] [address] Triglyceride mass conc 75 mg/dL Normal 0-149 [facility] Comment on above: Result Comment: AGE DESIRABLE BORDERLINE HIGH 91 D - 9 Y 0 - 74 75 - 99 > 100 10 - 19 Y 0 - 89 90 - 129 > 130 20 - 24 Y 0 - 114 115 - 149 > 150 > 25 0 - 149 150 - 199 200 - 499 Performed By: #### 3 [id number] #### RONNIE Rempopexpert [address] [place] [address] TSHon 11-11-2018 Thyrotropin Qn 3.64 mcIU/mL Normal 0.30-5.60 [facility] Comment on above: Performed By: #### 2 323447 #### RONNIE Rempopexpert [facility] [place] [address] eGFRon 11-11-2018 GFR/1.73 sq M predicted among non-blacks MDRD vol rate/area (S/P/Bld) mL/min/{1.73_m2} Normal [facility] Comment on above: Order Comment: Order added by Discern Expert. Performed By: #### 1 [id number] #### RONNIE Minorpopexpert [facility] [place] [address] Cardiolipin Antibodyon 02-21 Cardiolipin Antibody SEE BELOW Normal [facility] Comment on above: Result Comment: IgG Cardiolipin Ab. <9 0-9 GPL<10 GPL [id number] GPL Equivocal>40 GPL PositiveThe following results were obtained with the [employer] QUANTA Lite LORENA IgGIII FATUMA. Cardiolipin IgG values obtained with the differentmanufacturers' assay methods may not be used interchangeably. The magnitude of the reportedIgG levels cannot be correlated to an endpoint titer.IgM Cardiolipin Ab. 15 H 0-11 MPL<12 MPL Utdiroqx41-71 MPL Equivocal>40 MPL PositiveThe following results were obtained with the [employer] QUANTA Lite LORENA IgMIII FATUMA. Cardiolipin IgM values obtained with different manufacturers'assay methods may not be used interchangeably. The magnitude of the reportedIgM levels cannot be correlated to an endpoint titer.IgA Cardiolipin Ab. <9 0-11 APL<12 APL Poyeuxgg44-29 APL Equivocal>40 APL PositiveThe following results were obtained with an [employer] QUANTA Lite LORENA IgAIII FATUMA. Cardiolipin IgA values obtained with different manufacturers' assaymethods may not be used interchangeably. The magnitude of the reported IgA levelscannot be correclated to an endpoint titer.Performing Laboratory:[facility] [place] [address] Performed By: #### C ARDX ####[address] [address] Hypercoag Panelon 02-21-2017 Plasminogen Activity SEE BELOW Normal [facility] Comment on above: Result Comment: Plas minogen Func 89 69-137 %Performing Laboratory:[place] [address] Performed By: #### H YPCX ####[address] [address] Protein C Activity SEE BELOW Normal [facility] Comment on above: Result Comment: Prot ein C Functional 97 76-147 %Performing Laboratory:[place] [address] Performed By: #### H YPCX ####[address] [address] Protein C Antigen SEE BELOW Normal [facility] Comment on above: Result Comment: Prot C Immunologic 102 73-126 %The protein C antigen level was normal. As this is an antigenic test, a functional protein C deficiency cannot be excluded. Suggest orderingprotein C functional assay to exclude a functional protein C deficiency.Performing Laboratory:[place] [address] Performed By: #### H YPCX ####[address] [address] Protein S Antigen SEE BELOW Normal [facility] Comment on above: Result Comment: Tota l Protein S 85 74-156 %Free Protein S 102 55-148 %Performing Laboratory:[place] [address] Performed By: #### H YPCX ####[address] [address] Hemogram/Diffon 02-18-2017 Basophils Auto #/vol (Bld) 0.05 thou/cmm Normal 0.01-0.08 [facility] Comment on above: Performed By: #### C BCD1 ####[address] [address] Basophils/100 WBC Auto (Bld) 1.1 % Normal [facility] Comment on above: Performed By: #### C BCD1 ####[facility] [place], [place] [address] Eosinophils 0.53 thou/cmm High 0.00-0.31 [facility] Comment on above: Performed By: #### C BCD1 ####[address] [address] Eosinophils/100 leukocytes 11.7 % Normal [facility] Comment on above: Performed By: #### C BCD1 ####[place] [address] Erythrocyte distribution width Auto Ratio (RBC) 12.5 % Normal 11.7-14.4 [facility] Comment on above: Performed By: #### C BCD1 ####[place] [address] Erythrocytes (RBC) 4.31 mil/cmm Normal 3.93-5.22 [facility] Comment on above: Performed By: #### C BCD1 ####[place] [address] Hematocrit (HCT) 38.9 % Normal 34.1-44.9 [facility] Comment on above: Performed By: #### C BCD1 ####[place] [address] Hemoglobin mass conc (Bld) 13.4 g/dL Normal 11.2-15.7 [facility] Comment on above: Performed By: #### C BCD1 ####[place] [address] Immature Grans 0.20 % Normal [facility] Comment on above: Performed By: #### C BCD1 ####[place] [address] Immature Grans # 0.01 thou/cmm Normal 0.00-0.05 [facility] Comment on above: Performed By: #### C BCD1 ####[place] [address] Lymphocytes 1.28 thou/cmm Normal 1.18-3.74 [facility] Comment on above: Performed By: #### C BCD1 ####[facility] [place], [place] [address] Lymphocytes/100 leukocytes 28.3 % Normal [facility] Comment on above: Performed By: #### C BCD1 ####[facility] [place], [place] [address] MCH 31.1 pg Normal 25.6-32.2 [facility] Comment on above: Performed By: #### C BCD1 ####[address] [address] MCHC mass conc (RBC) 34.4 % Normal 31.6-34.8 [facility] Comment on above: Performed By: #### C BCD1 ####[address] [address] MCV 90.3 fL Normal 79.4-94.8 [facility] Comment on above: Performed By: #### C BCD1 ####[address] [address] Monocytes 0.37 thou/cmm Normal 0.27-0.70 [facility] Comment on above: Performed By: #### C BCD1 ####[address] [address] Monocytes/100 leukocytes 8.2 % Normal [facility] Comment on above: Performed By: #### C BCD1 ####[address] [address] Platelet mean volume (PMV) 8.8 fL Low 9.4-12.3 [facility] Comment on above: Performed By: #### C BCD1 ####[address] [address] Platelets 293 thou/cmm Normal 182-369 [facility] Comment on above: Performed By: #### C BCD1 ####[address] [address] RDW SD 41.1 fl Normal 36.4-46.3 [facility] Comment on above: Performed By: #### C BCD1 ####[facility] [place], [place] [address] Seg Neutrophil 50.5 % Normal [facility] Comment on above: Performed By: #### C BCD1 ####[facility] [place] [address] Seg. Neut.# 2.28 thou/cmm Normal 1.56-6.13 [facility] Comment on above: Performed By: #### C BCD1 ####[place] [address] WBC (Leukocytes) 4.52 thou/cmm Normal 3.98-10.04 [facility] Comment on above: Performed By: #### C BCD1 ####[place] [address] Venipuncture ACCon 7 Venipuncture ACC COMPLETED Normal [facility] Comment on above: Performed By: #### V ENP ####[place] [address] Vital Signs Date Time Vital Sign Value Performing Clinician Burton avery 01-12-2025 08:49-0400 Body temperature 98.2 [degF] Brenda Velezlogar WHEEL INST[employer]ER[employer]C Work Phone: [facility] 01-12-2025 08:49-0400 Diastolic blood pressure 76 mm[Hg] Brenda Velezlogar [employer] INST[employer]ER[employer]C Work Phone: [facility] 01-12-2025 08:49-0400 Heart rate 62 /min Brenda Velezlogar WHEEL INST[employer]ER[employer]C Work Phone: [facility] 01-12-2025 08:49-0400 Respiratory rate 16 /min Brenda Podlogar WHEEL INST[employer]ER[employer]C Work Phone: [facility] 01-12-2025 08:49-0400 SaO2% (BldA) [Mass fraction] 99 % Brenda Podlogar WHEEL INST[employer]ER[employer]C Work Phone: [facility] 01-12-2025 08:49-0400 Systolic blood pressure 129 mm[Hg] Brenda Velezlogar WHEEL INSTALLER-C Work Phone: 4(638)[phone] [place] [address] 01-12-2025 04:36-0400 Body height 167.64 cm Brenda Podlogar WHEEL INSTALLER-C Work Phone: 1(101)736-007220 [place] [address] 01-12-2025 04:36-0400 Body mass index (BMI) [Ratio] 29.2 kg/m2 Brenda Podlogar WHEEL INSTALLER-C Work Phone: 2(541)801-568020 [place] [address] 01-12-2025 04:36-0400 Body weight 82 kg Brenda Podlogar WHEEL INSTALLER-C Work Phone: 6(193)291-100020 [place] [address] 01-04-2025 11:01-0400 Body height 167.64 cm Brenda Podlogar WHEEL INSTALLER-C Work Phone: 8(190)533-196320 [place] [address] 01-04-2025 11:01-0400 Body mass index (BMI) [Ratio] 29 kg/m2 Brenda Podlogar WHEEL INSTALLER-C Work Phone: 9(517)426-32[address] [place] [address] 01-04-2025 11:01-0400 Body temperature 97.2 [degF] Brenda Podlogar WHEEL INSTALLER-C Work Phone: 6(611)376-054120 [place] [address] 01-04-2025 11:01-0400 Body weight 81.41 kg Brenda Podlogar WHEEL INSTALLER-C Work Phone: 8(920)313-699120 [place] [address] 01-04-2025 11:01-0400 Diastolic blood pressure 75 mm[Hg] Brenda Podlogar WHEEL INSTALLER-C Work Phone: 8(683)185-651620 [place] [address] 01-04-2025 11:01-0400 Heart rate 70 /min Brenda Podlogar WHEEL INSTALLER-C Work Phone: 5(719)949-157020 [place] [address] 01-04-2025 11:01-0400 Respiratory rate 18 /min Brenda Podlogar WHEEL INSTALLER-C Work Phone: 3(499)918-676620 [place] [address] 01-04-2025 11:01-0400 SaO2% (BldA) [Mass fraction] 99 % Brenda Podlogar WHEEL INSTALLER-C Work Phone: 3(092)735-174820 [place] [address] 01-04-2025 11:01-0400 Systolic blood pressure 121 mm[Hg] Brenda Podlogar WHEEL INSTALLER-C Work Phone: 6(283)228-587794 [place] [address] 12-28-2024 22:23-0400 Body temperature 97.7 [degF] Brenda Podlogar WHEEL INSTALLER-C Work Phone: 7(794)239-089820 [place] [address] 12-28-2024 22:23-0400 Diastolic blood pressure 85 mm[Hg] Brenda Podlogar WHEEL INSTALLER-C Work Phone: 0(453)460-085220 [place] [address] 12-28-2024 22:23-0400 Heart rate 72 /min Brenda Podlogar WHEEL INSTALLER-C Work Phone: 1(433)549-820820 [place] [address] 12-28-2024 22:23-0400 Respiratory rate 18 /min Brenda Podlogar WHEEL INSTALLER-C Work Phone: 0(789)744-163220 [place] [address] 12-28-2024 22:23-0400 SaO2% (BldA) [Mass fraction] 100 % Brenda Podlogar WHEEL INSTALLER-C Work Phone: 9(492)549-973720 [place] [address] 12-28-2024 22:23-0400 Systolic blood pressure 128 mm[Hg] Brenda Podlogar WHEEL INSTALLER-C Work Phone: 9(158)462-727020 [place] [address] 12-28-2024 15:59-0400 Body height 167.64 cm Brenda Podlogar WHEEL INSTALLER-C Work Phone: 3(828)095-957620 [place] [address] 12-28-2024 15:59-0400 Body mass index (BMI) [Ratio] 28.9 kg/m2 Brenda Podlogar WHEEL INSTALLER-C Work Phone: 7(568)914-363820 [place] [address] 12-28-2024 15:59-0400 Body weight 81.37 kg Brenda Podlogar WHEEL INSTALLER-C Work Phone: 7(765)356-742820 [place] [address] 10-15-2024 09:50-0400 Body mass index (BMI) [Ratio] 28.73 kg/m2 Marleni Freeman MD Work Phone: 1(888)126-783877 [place] [address] 10-15-2024 09:50-0400 Body weight 80.74 kg Marleni Freeman MD Work Phone: [facility] 10-15-2024 09:50-0400 Diastolic blood pressure 80 mm[Hg] Marleni Freeman MD Work Phone: [facility] 10-15-2024 09:50-0400 Heart rate 70 /min Marleni Freeman MD Work Phone: [facility] 10-15-2024 09:50-0400 SaO2% (BldA) [Mass fraction] 100 % Marleniyamile Freeman MD Work Phone: [facility] 10-15-2024 09:50-0400 Systolic blood pressure 122 mm[Hg] Marleni Freeman MD Work Phone: [facility] 07-16-2024 18:12-0500 Body mass index (BMI) [Ratio] 29.28 kg/m2 Krislyn Aberegg PA Work Phone: [facility] 07-16-2024 18:12-0500 Body temperature 98.2 [degF] Krislyn Aberegg PA Work Phone: [facility] 07-16-2024 18:12-0500 Body weight 82.3 kg Krislyn Aberegg PA Work Phone: [facility] 07-16-2024 18:12-0500 Diastolic blood pressure 80 mm[Hg] Krislyn Aberegg PA Work Phone: [facility] 07-16-2024 18:12-0500 Heart rate 89 /min Krislyn Aberegg PA Work Phone: [facility] 07-16-2024 18:12-0500 Respiratory rate 18 /min Krislyn Aberegg PA Work Phone: [facility] 07-16-2024 18:12-0500 SaO2% (BldA) [Mass fraction] 100 % Krislyn Aberegg PA Work Phone: [facility] 07-16-2024 18:12-0500 Systolic blood pressure 100 mm[Hg] Kvng HERNANDEZ Work Phone: [facility] 05-18-2024 14:03-0400 Body mass index (BMI) [Ratio] 28.89 kg/m2 Marleni Freeman MD Work Phone: [facility] 05-18-2024 14:03-0400 Body weight 81.19 kg Marleni Freeman MD Work Phone: [facility] 05-18-2024 14:03-0400 Diastolic blood pressure 68 mm[Hg] Marleni Freeman MD Work Phone: [facility] 05-18-2024 14:03-0400 Heart rate 86 /min Marleni Freeman MD Work Phone: [facility] 05-18-2024 14:03-0400 SaO2% (BldA) [Mass fraction] 98 % Marleni Freeman MD Work Phone: [facility] 05-18-2024 14:03-0400 Systolic blood pressure 118 mm[Hg] Marleni Freeman MD Work Phone: [facility] 03-09-2024 08:51-0400 Body height 167.6 cm Augusta Anderson MD Work Phone: [facility] 03-09-2024 08:51-0400 Body mass index (BMI) [Ratio] 29.02 kg/m2 Augusta Anderson MD Work Phone: [facility] 03-09-2024 08:51-0400 Body weight 81.56 kg Augusta Anderson MD Work Phone: [facility] 03-09-2024 08:51-0400 Diastolic blood pressure 80 mm[Hg] Augusta Anderson MD Work Phone: [facility] 03-09-2024 08:51-0400 Heart rate 72 /min Augusta Anderson MD Work Phone: [facility] 03-09-2024 08:51-0400 Respiratory rate 18 /min Augusta Anderson MD Work Phone: [facility] 03-09-2024 08:51-0400 SaO2% (BldA) [Mass fraction] 100 % Augusta Anderson MD Work Phone: [facility] 03-09-2024 08:51-0400 Systolic blood pressure 126 mm[Hg] Augusta Anderson MD Work Phone: [facility] 03-03-2024 08:25-0400 Body height 166.4 cm Marleni Freeman MD Work Phone: [facility] 03-03-2024 08:25-0400 Body mass index (BMI) [Ratio] 29.2 kg/m2 Marleni Freeman MD Work Phone: [facility] 03-03-2024 08:25-0400 Body weight 80.83 kg Marleni Freeman MD Work Phone: [facility] 03-03-2024 08:25-0400 Diastolic blood pressure 62 mm[Hg] Marleni Freeman MD Work Phone: [facility] 03-03-2024 08:25-0400 Systolic blood pressure 102 mm[Hg] Marleni Freeman MD Work Phone: [facility] 01-28-2024 09:57-0400 Body mass index (BMI) [Ratio] 27.76 kg/m2 Marleni Freeman MD Work Phone: [facility] 01-28-2024 09:57-0400 Body weight 78.02 kg Marleni Freeman MD Work Phone: [facility] 01-28-2024 09:57-0400 Diastolic blood pressure 82 mm[Hg] Marleniyamile Freeman MD Work Phone: [facility] 01-28-2024 09:57-0400 Heart rate 88 /min Marleni Freeman MD Work Phone: [facility] 01-28-2024 09:57-0400 SaO2% (BldA) [Mass fraction] 100 % Marleniyamile Freeman MD Work Phone: [facility] 01-28-2024 09:57-0400 Systolic blood pressure 124 mm[Hg] Marleniaymile Freeman MD Work Phone: [facility] 11-26-2023 08:59-0400 Body mass index (BMI) [Ratio] 28.08 kg/m2 Marleni Freeman MD Work Phone: [facility] 11-26-2023 08:59-0400 Body weight 78.93 kg Marleni Freeman MD Work Phone: [facility] 11-26-2023 08:59-0400 Diastolic blood pressure 82 mm[Hg] Marleni Freeman MD Work Phone: [facility] 11-26-2023 08:59-0400 Heart rate 106 /min Marleni Freeman MD Work Phone: [facility] 11-26-2023 08:59-0400 SaO2% (BldA) [Mass fraction] 99 % Marleni Freeman MD Work Phone: [facility] 11-26-2023 08:59-0400 Systolic blood pressure 138 mm[Hg] Marleni Freeman MD Work Phone: [facility] 10-29-2023 11:47-0400 Body weight 80.65 kg Brenda Roy MAINTENANCE TECHNICIAN 3RD SHIFTERNESTO Work Phone: [facility] 10-29-2023 11:47-0400 Diastolic blood pressure 74 mm[Hg] Brenda Velezlogchris MAINTENANCE TECHNICIAN 3RD SHIFT.IT PROJECT LEAD Work Phone: [facility] 10-29-2023 11:47-0400 Heart rate 77 /min Brenda Podlogar MAINTENANCE TECHNICIAN 3RD SHIFT.IT PROJECT LEAD Work Phone: [facility] 10-29-2023 11:47-0400 Respiratory rate 18 /min Brenda Podlogar MAINTENANCE TECHNICIAN 3RD SHIFT.IT PROJECT LEAD Work Phone: [facility] 10-29-2023 11:47-0400 SaO2% (BldA) [Mass fraction] 98 % Brenda Podlogar MAINTENANCE TECHNICIAN 3RD SHIFT.IT PROJECT LEAD Work Phone: [facility] 10-29-2023 11:47-0400 Systolic blood pressure 96 mm[Hg] Brenda Podlogar MAINTENANCE TECHNICIAN 3RD SHIFT.IT PROJECT LEAD Work Phone: [facility] 10-29-2023 09:38-0400 Body weight 79.38 kg Marleni Freeman MD Work Phone: [facility] 10-29-2023 09:38-0400 Diastolic blood pressure 62 mm[Hg] Marleni Freeman MD Work Phone: [facility] 10-29-2023 09:38-0400 Heart rate 82 /min Marleni Freeman MD Work Phone: [facility] 10-29-2023 09:38-0400 SaO2% (BldA) [Mass fraction] 99 % Marleni Freeman MD Work Phone: [facility] 10-29-2023 09:38-0400 Systolic blood pressure 106 mm[Hg] Marleni Freeman MD Work Phone: [facility] 05-16-2023 09:14-0400 Body weight 80.29 kg Marleni Freeman MD Work Phone: [facility] 05-16-2023 09:14-0400 Diastolic blood pressure 76 mm[Hg] Marleni Freeman MD Work Phone: [facility] 05-16-2023 09:14-0400 Heart rate 69 /min Marleniyamile Freeman MD Work Phone: [facility] 05-16-2023 09:14-0400 SaO2% (BldA) [Mass fraction] 96 % Marleniyamile Freeman MD Work Phone: [facility] 05-16-2023 09:14-0400 Systolic blood pressure 126 mm[Hg] Marleni Antonio Freeman MD Work Phone: [facility] 02-20-2023 10:08-0400 Body weight 83.46 kg Marleniyamiel Freeman MD Work Phone: [facility] 02-20-2023 10:08-0400 Diastolic blood pressure 80 mm[Hg] Marleniyamile Freeman MD Work Phone: [facility] 02-20-2023 10:08-0400 Heart rate 66 /min Marleniemily Freeman MD Work Phone: [facility] 02-20-2023 10:08-0400 SaO2% (BldA) [Mass fraction] 100 % Marleniyamile Freeman MD Work Phone: [facility] 02-20-2023 10:08-0400 Systolic blood pressure 130 mm[Hg] Marleniyamile Freeman MD Work Phone: [facility] 01-07-2023 08:59-0400 Body weight 84.37 kg Marleniyamile Freeman MD Work Phone: [facility] 01-07-2023 08:59-0400 Diastolic blood pressure 80 mm[Hg] Marleni Freeman MD Work Phone: [facility] 01-07-2023 08:59-0400 Heart rate 84 /min Marleniyamile Freeman MD Work Phone: [facility] 01-07-2023 08:59-0400 SaO2% (BldA) [Mass fraction] 100 % Marleni Antonio Freeman MD Work Phone: [facility] 01-07-2023 08:59-0400 Systolic blood pressure 124 mm[Hg] Marleniemily Freeman MD Work Phone: [facility] 11-26-2022 08:37-0400 Body weight 85.28 kg Marleniyamile Freeman MD Work Phone: [facility] 11-26-2022 08:37-0400 Diastolic blood pressure 74 mm[Hg] Marleniyamile Freeman MD Work Phone: [facility] 11-26-2022 08:37-0400 Heart rate 88 /min Marleniyamile Freeman MD Work Phone: [facility] 11-26-2022 08:37-0400 SaO2% (BldA) [Mass fraction] 100 % Marleniemily Freeman MD Work Phone: [facility] 11-26-2022 08:37-0400 Systolic blood pressure 118 mm[Hg] Marleniyamile Freeman MD Work Phone: [facility] 10-23-2022 09:04-0400 Body weight 88.13 kg Marleniyamile Freeman MD Work Phone: [facility] 10-23-2022 09:04-0400 Diastolic blood pressure 70 mm[Hg] Marleniyamile Freeman MD Work Phone: [facility] 10-23-2022 09:04-0400 Heart rate 80 /min Marleniemily Freeman MD Work Phone: [facility] 10-23-2022 09:04-0400 Systolic blood pressure 116 mm[Hg] Marleniyamile Freeman MD Work Phone: [facility] 09-13-2022 08:19-0500 Body height 167.6 cm Marleni Freeman MD Work Phone: [facility] 09-13-2022 08:19-0500 Body weight 86.18 kg Marleni Freeman MD Work Phone: [facility] 09-13-2022 08:19-0500 Diastolic blood pressure 72 mm[Hg] Marleni Freeman MD Work Phone: [facility] 09-13-2022 08:19-0500 Systolic blood pressure 116 mm[Hg] Marleni Freeman MD Work Phone: [facility] 05-22-2022 08:56-0400 Body weight 94.8 kg Marleni Freeman MD Work Phone: [facility] 05-22-2022 08:56-0400 Diastolic blood pressure 70 mm[Hg] Marleni Freeman MD Work Phone: [facility] 05-22-2022 08:56-0400 Systolic blood pressure 110 mm[Hg] Marleni Freeman MD Work Phone: [facility] 02-12-2022 10:28-0400 Body weight 92.99 kg Marleni Freeman MD Work Phone: [facility] 02-12-2022 10:28-0400 Diastolic blood pressure 76 mm[Hg] Marleni Freeman MD Work Phone: [facility] 02-12-2022 10:28-0400 Systolic blood pressure 118 mm[Hg] Marleni Freeman MD Work Phone: [facility] 12-25-2021 11:35-0400 Body height 167.64 cm Truman Olguin Other [employer] Other 12-25-2021 11:35-0400 Body mass index (BMI) [Ratio] 32.28 kg/m2 Truman Olguin Other [employer] Other 12-25-2021 11:35-0400 Body temperature 98 [degF] Truman Olguin Other [employer] Other 12-25-2021 11:35-0400 Body weight 90.72 kg Truman Olguin Other [employer] Other 12-25-2021 11:35-0400 Respiratory rate 18 /min Truman Olguin Other [employer] Other 12-25-2021 11:35-0400 SaO2% (BldA) [Mass fraction] 99 % Truman Olguin Other [employer] Other 10-07-2021 13:24-0500 Body height 165 cm Lito Tourlas Other Phone: [facility] 10-07-2021 13:24-0500 Body temperature 97.52 [degF] Lito Tourlas Other Phone: [facility] 10-07-2021 13:24-0500 Diastolic blood pressure 79 mm[Hg] Lito Tourlas Other Phone: [facility] 10-07-2021 13:24-0500 Heart rate 80 /min Lito Tourlas Other Phone: [facility] 10-07-2021 13:24-0500 SaO2% (BldA) [Mass fraction] 98 % Lito Tourlas Other Phone: [facility] 10-07-2021 13:24-0500 Systolic blood pressure 123 mm[Hg] Lito Tourlas Other Phone: [facility] 04-25-2021 14:30-0400 Body height 167.6 cm Lito Tourlas Other Phone: [facility] 04-25-2021 14:30-0400 Body temperature 97.34 [degF] Lito Tourlas Other Phone: [facility] 04-25-2021 14:30-0400 Diastolic blood pressure 77 mm[Hg] Lito Tourlas Other Phone: [facility] 04-25-2021 14:30-0400 Heart rate 94 /min Lito Tourlas Other Phone: [facility] 04-25-2021 14:30-0400 Respiratory rate 20 /min Lito Tourlas Other Phone: [facility] 04-25-2021 14:30-0400 SaO2% (BldA) [Mass fraction] 97 % Lito Tourlas Other Phone: [facility] 04-25-2021 14:30-0400 Systolic blood pressure 115 mm[Hg] Lito Tourlas Other Phone: [facility] 01-31-2021 14:51-0400 Body height 167.6 cm Liot Tourlas Other Phone: [facility] 01-31-2021 14:51-0400 Body temperature 97.34 [degF] Lito Tourlas Other Phone: [facility] 01-31-2021 14:51-0400 Diastolic blood pressure 75 mm[Hg] Lito Tourlas Other Phone: [facility] 01-31-2021 14:51-0400 Heart rate 80 /min Lito Tourlas Other Phone: [facility] 01-31-2021 14:51-0400 Respiratory rate 20 /min Liot Tourlas Other Phone: [facility] 01-31-2021 14:51-0400 SaO2% (BldA) [Mass fraction] 98 % Lito Hernandez Other Phone: [facility] 01-31-2021 14:51-0400 Systolic blood pressure 113 mm[Hg] Lito Hernandez Other Phone: [facility] 03-02-2020 10:28-0400 BMI (Body Mass Index) 32.65 kg/m2 [id number] [facility] [id number] RN [facility] Work Phone: 03-02-2020 10:28-0400 Body weight 91.76 kg [id number] [facility] [id number] RN [facility] Work Phone: 03-02-2020 10:28-0400 BP Diastolic 80 mm[Hg] [id number] [facility] [id number] RN [facility] Work Phone: 03-02-2020 10:28-0400 BP Systolic 122 mm[Hg] [id number] [facility] [id number] RN [facility] Work Phone: 03-02-2020 10:28-0400 BSA (Body Surface Area) 2.01 m2 [id number] [facility] [id number] RN [facility] Work Phone: 03-02-2020 10:28-0400 Height 167.64 cm [id number] [facility] [id number] RN [facility] Work Phone: 03-02-2020 10:28-0400 Pulse (Heart Rate) 72 /min [id number] [facility] [id number] RN [facility] Work Phone: 02-18-2020 12:38-0400 BMI (Body Mass Index) 32.12 kg/m2 [id number] [facility] [id number] RN [facility] Work Phone: 02-18-2020 12:38-0400 Body Temperature 97.6 [degF] [id number] [facility] [id number] RN [facility] Work Phone: 02-18-2020 12:38-0400 Body weight 90.27 kg [id number] [facility] [id number] RN [facility] Work Phone: 02-18-2020 12:38-0400 BP Diastolic 84 mm[Hg] [id number] [facility] [id number] RN [facility] Work Phone: 02-18-2020 12:38-0400 BP Systolic 134 mm[Hg] [id number] [facility] [id number] RN [facility] Work Phone: 02-18-2020 12:38-0400 BSA (Body Surface Area) 2 m2 [id number] [facility] [id number] RN [facility] Work Phone: 02-18-2020 12:38-0400 Height 167.64 cm [id number] [facility] [id number] RN [facility] Work Phone: 12-02-2019 10:44-0400 BMI (Body Mass Index) 32.12 kg/m2 Lito Tourlas [facility] Work Phone: 12-02-2019 10:44-0400 Body weight 90.27 kg Lito Tourlas [facility] Work Phone: 12-02-2019 10:44-0400 BP Diastolic 78 mm[Hg] Lito Tourlas [facility] Work Phone: 12-02-2019 10:44-0400 BP Systolic 118 mm[Hg] Lito Tourlas [facility] Work Phone: 12-02-2019 10:44-0400 BSA (Body Surface Area) 2 m2 Lito Hernandez [facility] Work Phone: 12-02-2019 10:44-0400 Height 167.64 cm Lito Sherifflas [facility] Work Phone: 12-02-2019 10:44-0400 Pulse (Heart Rate) 68 /min Lito Sherifflas [facility] Work Phone: 11-02-2019 10:02-0400 BMI (Body Mass Index) 31.38 kg/m2 Lito Sherifflas [facility] Work Phone: 11-02-2019 10:02-0400 Body weight 88.18 kg Lito Sherifflas [facility] Work Phone: 11-02-2019 10:02-0400 BP Diastolic 70 mm[Hg] Lito Sharitalas [facility] Work Phone: 11-02-2019 10:02-0400 BP Systolic 118 mm[Hg] Lito Sharitalas [facility] Work Phone: 11-02-2019 10:02-0400 BSA (Body Surface Area) 1.98 m2 Lito Tourlas [facility] Work Phone: 11-02-2019 10:02-0400 Height 167.64 cm Lito Sherifflas [facility] Work Phone: 11-02-2019 10:02-0400 Pulse (Heart Rate) 72 /min Lito Sharitalas [facility] Work Phone: Encounters Encounter Date Encounter Type Care Provider Facility Start: 01-14-2025 ambulatory Brenda Podlogar WHEEL INSTALLER Facil ity:[facility] Start: 01-13-2025 ambulatory Brenda Podlogar WHEEL INSTALLER Facil ity:[facility] Start: 01-12-2025 End: 01-12-2025 Telephone encounter Beth Kalka PAKirstieC Work Phone: [facility] Comment on above: Patient Update Start: 01-12-2025 Encounter for other preprocedural examination Yaw Sandhu [facility] Start: 01-12-2025 End: 01-12-2025 Emergency department patient visit Andrez Mendez Facility:[facility] Start: 01-08-2025 Encounter for other preprocedural examination Yaw Sandhu [facility] Start: 01-04-2025 End: 01-04-2025 ambulatory Brenda Podlogar WHEEL INSTALLER-C Work Phone: [facility] Work Phone: Start: 01-04-2025 End: 01-04-[address] Yaw Sandhu MD -Laboratory Work Phone: Start: 01-04-2025 End: 01-04-[address] Yaw Sandhu MD -[facility] Work Phone: Start: 01-04-2025 End: 01-04-2025 ambulatory Brenda Podlogar WHEEL INSTALLER-C Work Phone: [facility] Work Phone: Start: 01-04-2025 End: 01-04-2025 ambulatory Brenda Podlogar WHEEL INSTALLER Facility:[facility] Start: 12-31-2024 End: 12-31-2024 ambulatory SELF Facility:[facility] Start: 12-31-2024 End: 12-31-2024 Patient encounter procedure Brenda Podlogchris MAINTENANCE TECHNICIAN 3RD SHIFT.IT PROJECT LEAD Work Phone: [facility] Comment on above: Failure to attend ap pointment with reason given (Primary Dx) Start: 12-29-2024 End: 12-29-2024 ambulatory Marleni Freeman MD Work Phone: OB/Gynecology Start: 12-29-2024 End: 12-29-2024 Follow-up encounter Marleni Freeman MD Work Phone: OB/Gynecology Comment on above: ER visit follow-up Start: 12-28-2024 End: 12-28-2024 Emergency department patient visit Brenda Velezlogchris WHEEL INSTALLER-C Work Phone: -Emergency Department Work Phone: Start: 10-27-2024 End: 10-27-2024 Telephone encounter Marleni Freeman MD Work Phone: OB/Gynecology Comment on above: Insurance Authorizat ion Start: 10-15-2024 End: 10-15-2024 ambulatory MARLENI FREEMAN Facility:[facility] Start: 10-15-2024 End: 10-15-2024 Patient encounter procedure [...] Start: 08-09-2024 End: 08-10-2024 Refill Brenda Podlogar IT PROJECT LEAD Work Phone: [facility] [place] [facility] Comment on above: Refill Request Start: 07-16-2024 End: 07-16-2024 ambulatory BRENDA PODLOGAR Facility:[facility] Start: 07-16-2024 End: 07-16-2024 Patient encounter procedure Kvng HERNANDEZ Work Phone: [facility] Comment on above: Urinary frequency (P rimary Dx); Vaginal odor Start: 06-12-2024 End: 06-15-2024 Refill Brenda Podlogar MAINTENANCE TECHNICIAN 3RD SHIFTRadhikaIT PROJECT LEAD Work Phone: [facility] [place] [facility] Comment on above: Refill Request Start: 05-18-2024 End: 05-18-2024 ambulatory BRENDA PODLOGAR Facility:[facility] Start: 05-18-2024 End: 05-18-2024 Patient encounter procedure [...] Start: 03-26-2024 End: 03-26-2024 ambulatory BRENDA PODLOGAR Facility:[facility] Start: 03-17-2024 End: 03-17-2024 ambulatory Marleni Freeman MD Work Phone: OB/Gynecology Comment on above: Meds Start: 03-14-2024 End: 03-14-2024 ambulatory AUGUSTA ANDERSON Facility:[facility] Start: 03-09-2024 End: 03-09-2024 ambulatory MARLENI FREEMAN Facility:[facility] Start: 03-09-2024 End: 03-09-2024 Patient encounter procedure Augusta Anderson MD Work Phone: Endocrinology Comment on above: Inappropriately low serum insulin (Primary Dx) Start: 03-03-2024 End: 03-03-2024 ambulatory BRENDA PODLOGAR Facility:[facility] Start: 03-03-2024 End: 03-03-2024 Patient encounter procedure Marleni Freeman MD Work Phone: OB/Gynecology Comment on above: Encounter for gyneco logical examination (general) (routine) without abnormal findings (Primary Dx); Encounter for screening mammogram for breast cancer Start: 03-03-2024 End: 03-03-2024 Patient encounter status Marleni Freeman MD Work Phone: [facility] Start: 02-25-2024 End: 02-25-2024 ambulatory MICHAEL Taylor [facility] Start: 02-07-2024 Telephone encounter Marleni Freeman MD Work Phone: OB/Gynecology Comment on above: Question Start: 02-05-2024 End: 02-05-2024 ambulatory MARLENI FREEMAN Facility:[facility] Start: 01-28-2024 End: 01-28-2024 ambulatory BRENDA PODLOGAR Facility:[facility] Start: 01-28-2024 End: 01-28-2024 Patient encounter procedure [...] Start: 11-22-2023 Documentation procedure Mammog guadalupe Coordinator [facility] Start: 11-22-2023 Letter encounter Mammography Coordinator [facility] Start: 11-22-2023 Telephone encounter Ruth self APRN.CNP Work Phone: Family [facility] [place] Comment on above: Results Start: 11-21-2023 Telephone encounter Marleni Freeman MD Work Phone: OB/Gynecology Comment on above: Appointment Start: 11-21-2023 End: 11-21-2023 ambulatory Ob Ultrasound Work Phone: OB/Gynecology Comment on above: DUB Start: 11-21-2023 End: 11-21-2023 Patient encounter procedure Drill Instructor [place] [facility] Work Phone: OB/Gynecology Start: 11-21-2023 End: 11-21-2023 Subsequent hospital visit by physician Screen Mammo [facility] Mammogram Comment on above: Encounter for [...] without complication (HCC) Start: 10-16-2023 ambulatory Brenda Roy APRN.IT PROJECT LEAD Work Phone: Internal Medicine [facility] [place] Start: 09-14-2023 Refill Brenda Roy APRN.IT PROJECT LEAD Work Phone: [facility] [place] Comment on above: Refill Request Start: 09-02-2023 [...] encounter Beth tirado PA-C Work Phone: Gastroenterology [place] Comment on above: Appointment Start: 09-14-2022 Documentation procedure Mammog guadalupe Coordinator [facility] Start: 09-14-2022 Letter encounter Mammography Coordinator [facility] Start: 09-14-2022 Telephone encounter Brenda hubbard MAINTENANCE TECHNICIAN 3RD SHIFT.IT PROJECT LEAD Work Phone: Family [facility] [place] Comment on above: Results Start: 09-13-2022 End: [...] Phone: OB/Gynecology Start: 08-07-2022 Refill Brenda Podlogar MAINTENANCE TECHNICIAN 3RD SHIFT.IT PROJECT LEAD Work Phone: Family [facility] Comment on above: Refill Request Refill Request (/) Start: 07-18-2022 ambulatory Brenda Podlogar MAINTENANCE TECHNICIAN 3RD SHIFT.IT PROJECT LEAD Work Phone: Internal Medicine [facility] [place] Start: 05-22-2022 End: 05-22-2022 Patient encounter procedure Marleni Freeman MD Work Phone: OB/Gynecology Comment on above: Class 1 obesity with body mass index (BMI) of 34.0 to 34.9 in adult, unspecified obesity type, unspecified whether serious comorbidity present (Primary Dx); Unintended weight gain; Thyroid disease Start: 03-13-2022 Refill Brenda Podlogar MAINTENANCE TECHNICIAN 3RD SHIFT.IT PROJECT LEAD Work Phone: [facility] Family Medicine Comment on above: Refill Request Start: 03-12-2022 Refill Brenda Podlogar MAINTENANCE TECHNICIAN 3RD SHIFT.IT PROJECT LEAD Work Phone: [facility] Family Medicine Comment on above: Refill Request Start: 02-12-2022 End: 02-12-2022 Patient encounter procedure Marleni Freeman MD Work Phone: OB/Gynecology Comment on above: Recurrent UTI (Prima ry Dx); Vaginal discharge Start: 02-06-2022 ambulatory Marleni Freeman MD Work Phone: OB/Gynecology Comment on above: Bladder Infections Start: 01-31-2022 Refill Brenda Podlogar MAINTENANCE TECHNICIAN 3RD SHIFT.IT PROJECT LEAD Work Phone: Family Medicine [place] Comment on above: Refill Request Start: 12-25-2021 End: 12-25-2021 ambulatory Truman Olguin Other [employer] Other Start: 12-25-2021 Office outpatient ne w 20 minutes Truman Olguin [facility] Urgent Care [facility] Start: 12-25-2021 End: 12-25-2021 Departed Referred PA-C Truman Olguin Work Phone: [facility] [address] Start: 10-07-2021 End: 10-07-2021 Emergency department patient visit [facility] Start: 08-27-2021 ambulatory Brenda Podlogar MAINTENANCE TECHNICIAN 3RD SHIFT.IT PROJECT LEAD Work Phone: Family [facility] [place] Comment on above: citalopram Start: 04-25-2021 End: 04-25-2021 Emergency department patient visit [facility] Start: 01-31-2021 End: 01-31-2021 Emergency department patient visit [facility] Start: 04-20-2020 Patient encounter procedure [facility] Work Phone: Start: 04-19-2020 Patient encounter procedure [facility] Work Phone: Start: 04-06-2020 Patient encounter procedure Lito Sharitalas [facility] Work Phone: Start: 03-22-2020 Patient encounter procedure Lito Hernandez [facility] Work Phone: Start: 03-21-2020 Patient encounter procedure Lito Hernandez [facility] Work Phone: Start: 03-07-2020 Patient encounter procedure [id number] [facility] [id number] RN [facility] Work Phone: Start: 03-02-2020 Patient encounter procedure [id number] [facility] [id number] RN [facility] Work Phone: Start: 02-24-2020 Patient encounter procedure [id number] [facility] [id number] RN [facility] Work Phone: Start: 02-18-2020 Patient encounter procedure [id number] [facility] [id number] RN [facility] Work Phone: Start: 02-04-2020 Patient encounter procedure [id number] [facility] [id number] RN [facility] Work Phone: Start: 01-13-2020 Patient encounter procedure [id number] [facility] [id number] RN [facility] Work Phone: Start: 12-23-2019 Patient encounter procedure [id number] [facility] [id number] RN [facility] Work Phone: Start: 12-02-2019 Patient encounter procedure Lito Sharitalas [facility] Work Phone: Start: 11-02-2019 Patient encounter procedure Lito Sharitalas [facility] Work Phone: Start: 09-28-2019 Patient encounter procedure Lito Tourlas [facility] Work Phone: Start: 08-31-2019 Patient encounter procedure Lito Sharitalas [facility] Work Phone: Start: 08-24-2019 Patient encounter procedure Lito Tourlas [facility] Work Phone: Start: 08-20-2019 Patient encounter procedure Lito Tourlas [facility] Work Phone: Start: 08-03-2019 Patient encounter procedure Lito Tourlas [facility] Work Phone: Start: 07-16-2019 Patient encounter procedure Lito Sharitalas [facility] Work Phone: Start: 11-12-2018 End: 11-13-2018 Patient encounter procedure Lito Sharitalas Facility:[facility] Start: 11-11-2018 End: 11-12-2018 Patient encounter procedure Lito Ladi Facility:[facility] Start: 03-14-2018 End: 03-14-2018 Patient encounter procedure Brandon Roca Facility:Brandon Roca DO Start: 04-18-2017 End: 12-03-2017 Patient requested procedure Marleni Freeman MD Work Phone: [facility] Start: 02-18-2017 End: 02-19-2017 Ambulatory TEETEE HAQUE Facility:[facility] Procedures Date Procedure Procedure Detail Performing Clinician Start: 01-12-2025 Ultrasonography of abdomen Brenda Flynn r WHEEL INSTALLER-C Work Phone: Start: 01-12-2025 Estimated creatinine clearance Brenda barger WHEEL INSTALLER-C Work Phone: Start: 12-28-2024 Transvaginal echography Brenda Roy N P-C Work Phone: Start: 12-28-2024 US scan of gallbladder Brenda Roy WHEEL INSTALLER -C Work Phone: Start: 12-28-2024 Computed tomography of abdomen and pelvis with intravenous contrast Brenda Podlogar WHEEL INSTALLER-C Work Phone: Start: 12-28-2024 Urnls dip stick/tablet reagent auto microscopy Brenda Podlogar WHEEL INSTALLER-C Work Phone: Start: 12-28-2024 X-ray of chest, PA and lateral views Brenda Podlogar WHEEL INSTALLER-C Work Phone: Start: 12-28-2024 Estimated creatinine clearance Brenda Pod logar WHEEL INSTALLER-C Work Phone: Start: 12-28-2024 Urine culture Brenda Podlogar WHEEL INSTALLER-C Work Phone: Start: 07-16-2024 Urnls dip stick/tablet rgnt auto w/o microscopy Mandeep Morin MAINTENANCE TECHNICIAN 3RD SHIFT.IT PROJECT LEAD Work Phone: Start: 02-05-2024 Lipid 1996 panel - Serum or Plasma Brenda Podlogar MAINTENANCE TECHNICIAN 3RD SHIFT.IT PROJECT LEAD Work Phone: Start: 11-21-2023 Us pelvic nonobstetric real-time image complete Marleni Freeman MD Work Phone: Start: 11-08-2022 Colonoscopy Marleni Freeman MD Work Phone: Start: 09-13-2022 Mammography Brenda Podlogar MAINTENANCE TECHNICIAN 3RD SHIFT.IT PROJECT LEAD Work Phone: Start: 02-12-2022 Urnls dip stick/tablet rgnt auto w/o microscopy Marleni Freeman MD Work Phone: Start: 12-25-2021 Piperacillin/tazobactam Truman Olguin Other Start: 06-12-2021 Adult depression screening assessment Brenda Podlogar MAINTENANCE TECHNICIAN 3RD SHIFT.IT PROJECT LEAD Work Phone: Start: 06-09-2021 Mammography Brenda Podlogar MAINTENANCE TECHNICIAN 3RD SHIFT.IT PROJECT LEAD Work Phone: Start: 07-04-2020 Follow-up visit Start: 05-17-2020 Follow-up visit Start: 04-19-2020 Follow-up visit Start: 03-22-2020 Follow-up visit Start: 03-02-2020 Cyanocobalamin vitamin b-12 [id number] Franco PERRY [id number] RN Start: 12-03-2019 Mri any jt upper extremity w/o & w/contr matrl Lito Tourlas Start: 12-02-2019 Assay of ferritin Lito Tourlas Start: 12-02-2019 Cyanocobalamin vitamin b-12 Lito Tourlas Start: 12-01-2019 CT Chest with Contrast Lito Tour las Start: 11-06-2019 MG Breast screening Lito Tourlas Start: 11-04-2019 Ultrasound Non Vasc Extremity Limited Lito Tourlas Start: 11-02-2019 Comprehensive metabolic 2000 panel Konst antinos Tourlas section Konstantino s Tourlas Colonoscopy Lito To urlas Esophagogastroduodenoscopy K onstantinos Tourlas Plan of Treatment Date Care Activity Detail Author Start: 2039 HEPATITIS B (1 of 3 - Risk 3-dose series) HEPATITIS B (1 of 3 - Risk 3-dose series) [facility] Start: 2039 Hepatitis B Vaccine (1 of 3 - Risk 3-dose series) Hepatitis B Vaccine (1 of 3 - Risk 3-dose series) [facility] Start: 06-14-2031 Urine microalbumin profile [facility] Start: 02-04-2029 Lipid panel Lipid Screening [facility] Start: 11-09-2027 Screening for malignant neoplasm of colon Sigmoidoscopy [facility] Start: 03-14-2027 Diabetes Screening Diabetes Screening [facility] Start: 07-17-2026 HPV TESTING HPV TESTING [facility] Start: 07-17-2026 PAP TESTING PAP TESTING [facility] Start: 07-17-2026 Screening for malignant neoplasm of cervix [facility] Start: 12-31-2025 Annual PCP Team Chronic Disease Visit Annual PCP Team Chronic Disease Visit [facility] Start: 11-08-2025 Colonoscopy COLONOSCOPY [facility] Start: 11-08-2025 COLORECTAL CANCER SCREENING COLORECTAL CANCER SCREENING [facility] Start: 11-08-2025 Screening for malignant neoplasm of colon [facility] Start: 04-15-2025 End: 04-15-2025 Patient encounter procedure 04/15/2025 9:50 AM EDT Office Visit OB/Gynecology [address] [place] [address] Marleni Almonte MD [address] [place] [address] weight management follow up OB/Gynecology Comment on above: weight management follow up Start: 04-14-2025 End: 04-14-2025 Patient encounter procedure Mammogram Comment on above: Encounter for screening mammogram for br east cancer [Z12.31] Annual Start: 04-02-2025 End: 04-02-2025 Patient encounter procedure OB/Gynecology Comment on above: 2nd attempt/Annual / LVM TO R/S Encounter for screen ing mammogram for breast cancer [Z12.31] Annual / LVM TO R/S Start: 03-29-2025 Influenza vaccination Influenza Vaccine (Season Ended) [facility] Start: 03-04-2025 End: 03-04-2025 Patient encounter procedure Mammogram Comment on above: Encounter for screening mammogram for br east cancer [Z12.31] Annual (mamm w/ nuria ) Start: 01-12-2025 End: 01-12-2025 Patient encounter procedure OB/Gynecology Comment on above: weight management follow up follow up from [facility] er, gb attack,fatty liver seen on us, elevated ast of 95, alt of 84 Start: 01-12-2025 [facility] Start: 01-04-2025 Comprehensive metabolic 2000 panel - Serum or Plasma [facility] Start: 12-31-2024 End: 12-31-2024 Patient encounter procedure 12/31/2024 9:00 AM EDT Office Visit Family Medicine [place] [address] [place] [address] PodBrenda barger APRN.IT PROJECT LEAD [address] [place] [address] follow up from [facility] er, 12/28/24 gb attack,fatty liver seen on us, elevated ast of 95, alt of 84 Family Medicine [place] Comment on above: follow up from [facility] er, gb attack,fatty liver seen on us, elevated ast of 95, alt of 84 Start: 12-28-2024 [facility] Start: 12-28-2024 End: 12-28-2024 [facility] Start: 12-28-2024 Bacteria identified in Urine by Culture Urine Culture [facility] Start: 11-20-2024 Screening for malignant neoplasm of breast Mammogram Screening [facility] Start: 10-28-2024 Annual PCP Team Chronic Disease Visit Annual PCP Team Chronic Disease Visit [facility] Start: 10-15-2024 End: 01-14-2025 Comprehensive metabolic 2000 panel - Serum or Plasma COMPREHENSIVE METABOLIC PANEL Lab Routine Class 1 obesity with body mass index (BMI) of 34.0 to 34.9 in adult, unspecified obesity type, unspecified whether serious comorbidity present Encounter for long-term (current) use of medications Expected: 10/15/2024, Expires: 01/14/2025 [facility] Work Phone: Comment on above: Expected: 10/15/2024, Expires: Start: 10-15-2024 End: 10-15-2024 Patient encounter procedure 10/15/2024 9:50 AM EDT Office Visit OB/Gynecology [address] [place] [address] Marleni Almonte MD [address] [place] [id number] weight management f/u OB/Gynecology Comment on above: weight management f/u Start: 08-12-2024 End: 08-12-2024 Patient encounter procedure 08/12/2024 9:20 AM EST Office Visit OB/Gynecology [address] [place] [address] Marleni Almonte MD [address] [place] [address] weight management f/u OB/Gynecology Comment on above: weight management f/u Start: 08-12-2024 End: 08-12-2024 Nursing evaluation of patient and report 08/12/2024 9:00 AM EST Nurse Visit OB/Gynecology [address] [place] [address] Wstr, Nurse Folder Seamer [facility] [address] [place] [address] weight management f/u OB/Gynecology Comment on above: weight management f/u Start: 2024 Screening for malignant neoplasm of colon [facility] Start: 05-18-2024 End: 05-18-2024 Patient encounter procedure 05/18/2024 2:00 PM EDT Office Visit OB/Gynecology [address] [place] [address] Marleni Almonte MD [address] [place] [address] weight management follow up OB/Gynecology Comment on above: weight management follow up Start: 04-28-2024 End: 04-28-2024 Patient encounter procedure 04/28/2024 9:20 AM EDT Office Visit Endocrinology [address] [place] [address] Augusta Anderson MD [address] [place] [address] 4 WK F/U Endocrinology Comment on above: 4 WK F/U Start: 04-07-2024 End: 04-07-2024 Patient encounter procedure 04/07/2024 3:40 PM EDT Office Visit Endocrinology [address] [place] [address] Augusta Anderson MD [address] [place] [address] Inappropriately low serum insulin [R79.89] Endocrinology Comment on above: Inappropriately low serum insulin [R79.8 9] Start: 03-29-2024 Covid-19 Vaccine () Covid-19 Vaccine () [facility] Start: 03-29-2024 Influenza vaccination [facility] Start: 03-14-2024 End: 03-14-2024 ambulatory 03/14/2024 8:15 AM EDT Resul ts Only [facility] [address] [facility] [place] [address] [facility] Start: 03-13-2024 End: 03-13-2024 ambulatory 03/13/2024 7:45 AM EDT Resul ts Only [place] [facility] [address] [place] [address] LABS [facility] Comment on above: LABS Start: 03-09-2024 End: 06-08-2024 Corticotropin [Mass/volume] in Plasma ACTH BLD Lab Routine Inappropriately low serum insulin Expected: 03/09/2024, Expires: 06/08/2024 [facility] Work Phone: Comment on above: Expected: 03/09/2024, Expires: Start: 03-09-2024 End: 06-08-2024 Cortisol [Mass/volume] in Serum or Plasma CORTISOL, SERUM Lab Routine Inappropriately low serum insulin Expected: 03/09/2024, Expires: 06/08/2024 [facility] Comment on above: Expected: 03/09/2024, Expires: 4 Start: 03-09-2024 End: 06-08-2024 Fasting glucose [Mass/volume] in Serum or Plasma GLUCOSE, FASTING Lab Routine Inappropriately low serum insulin Expected: 03/09/2024, Expires: 06/08/2024 [facility] Comment on above: Expected: 03/09/2024, Expires: Start: 03-09-2024 End: 06-08-2024 Insulin [Units/volume] in Serum or Plasma INSULIN ASSAY BLOOD Lab Routine Inappropriately low serum insulin Expected: 03/09/2024, Expires: 06/08/2024 [facility] Comment on above: Expected: 03/09/2024, Expires: Start: 03-09-2024 End: 06-08-2024 INSULIN ANTIBODY BLD INSULIN ANTIBODY BLD Lab Routine Inappropriately low serum insulin Expected: 03/09/2024, Expires: 06/08/2024 [facility] Comment on above: Expected: 03/09/2024, Expires: Start: 03-09-2024 End: 06-08-2024 INSULIN, FREE INSULIN, FREE Lab Routine Inappropriately low serum insulin Expected: 03/09/2024, Expires: 06/08/2024 [facility] Comment on above: Expected: 03/09/2024, Expires: Start: 03-03-2024 End: 03-03-2024 Patient encounter procedure 03/03/2024 8:20 AM EDT Office Visit OB/Gynecology [address] [place] [address] Marleni Almonte MD [address] [place] [address] Annual/ ok to reschedule just needs appt before 03/09 OB/Gynecology Comment on above: Annual/ ok to reschedule just needs appt before 03/09 Start: 03-02-2024 End: 03-02-2024 Patient encounter procedure 03/02/2024 8:40 AM EDT Office Visit OB/Gynecology [address] [place] [address] Marleni Almonte MD [address] [place] [address] Annual/ ok to reschedule just needs appt before 03/09 OB/Gynecology Comment on above: Annual/ ok to reschedule just needs appt before 03/09 Start: 02-04-2024 End: 05-05-2024 CBC panel - Blood by Automated count COMPLETE BLOOD COUNT Lab Routine Malaise and fatigue Iron deficiency Expected: 02/04/2024 (Approximate), Expires: 05/05/2024 [facility] Comment on above: Expected: 02/04/2024 (Approximate), Expi res: 05/05/2024 Start: 02-04-2024 End: 05-05-2024 Comprehensive metabolic 2000 panel - Serum or Plasma COMPREHENSIVE METABOLIC PANEL Lab Routine Malaise and fatigue Class 1 obesity without serious comorbidity with body mass index (BMI) of 31.0 to 31.9 in adult, unspecified obesity type Encounter for screening for diabetes mellitus Expected: 02/04/2024 (Approximate), Expires: 05/05/2024 [facility] Work Phone: Comment on above: Expected: 02/04/2024 (Approximate), Expi res: 05/05/2024 Start: 02-04-2024 End: 05-05-2024 Insulin [Units/volume] in Serum or Plasma INSULIN ASSAY BLOOD Lab Routine Encounter for screening for diabetes mellitus Expected: 02/04/2024 (Approximate), Expires: 05/05/2024 [facility] Comment on above: Expected: 02/04/2024 (Approximate), Expi res: 05/05/2024 Start: 02-04-2024 End: 05-05-2024 Lipid 1996 panel - Serum or Plasma LIPID PANEL BASIC Lab Routine Class 1 obesity without serious comorbidity with body mass index (BMI) of 31.0 to 31.9 in adult, unspecified obesity type Screening cholesterol level Expected: 02/04/2024 (Approximate), Expires: 05/05/2024 [facility] Comment on above: Expected: 02/04/2024 (Approximate), Expi res: 05/05/2024 Start: 02-04-2024 End: 05-05-2024 Thyrotropin [Units/volume] in Serum or Plasma THYROID STIMULATING HORMONE Lab Routine Malaise and fatigue Hypothyroidism, unspecified type Expected: 02/04/2024 (Approximate), Expires: 05/05/2024 [facility] Comment on above: Expected: 02/04/2024 (Approximate), Expi res: 05/05/2024 Start: 01-28-2024 End: 01-28-2024 Patient encounter procedure 01/28/2024 9:50 AM EDT Office Visit OB/Gynecology [address] [place] [address] Marleni Almonte MD [address] [place] [address] weight management follow up OB/Gynecology Comment on above: weight management follow up Start: 11-26-2023 End: 11-26-2023 Patient encounter procedure 11/26/2023 9:00 AM EDT Office Visit OB/Gynecology [address] [place] [address] Marleni Almonte MD [address] [place] [address] iud removal & reinsertion OB/Gynecology Comment on above: iud removal & reinsertion Start: 10-29-2023 End: 10-28-2024 US Pelvis PELVIC US [facility] Anc Imaging Routine Abnormal uterine bleeding (AUB) IUD (intrauterine device) in place Expected: 10/29/2023, Expires: 10/28/2024 [facility] Work Phone: Comment on above: Expected: 10/29/2023, Expires: Start: 09-13-2023 Mammography [facility] Start: 09-13-2023 Screening for malignant neoplasm of breast Mammogram Screening [facility] Start: 08-15-2023 ANNUAL PCP TEAM CHRONIC DISEASE VISIT ANNUAL PCP TEAM CHRONIC DISEASE VISIT [facility] Start: 07-29-2023 Behavioral Health Screening Behavioral Health Screening [facility] Start: 07-29-2023 Depression Assessment Depression Assessment [facility] Start: 03-29-2023 Covid-19 Vaccine () Covid-19 Vaccine () [facility] Start: 03-29-2023 Influenza vaccination [facility] Start: 10-15-2022 End: 12-15-2022 Ferritin [Mass/volume] in Serum or Plasma FERRITIN BLD Lab Routine Hx of iron deficiency anemia Expected: 10/15/2022, Expires: 12/15/2022 [facility] Work Phone: Comment on above: Expected: 10/15/2022, Expires: 3 Start: 10-15-2022 End: 12-15-2022 Iron and Iron binding capacity panel - Serum or Plasma IRON + TIBC Lab Routine Hx of iron deficiency anemia Expected: 10/15/2022, Expires: 12/15/2022 [facility] Work Phone: Comment on above: Expected: 10/15/2022, Expires: 3 Start: 07-29-2022 DEPRESSION ASSESSMENT DEPRESSION ASSESSMENT [facility] Start: 06-12-2022 Adult depression screening assessment DEPRESSION SCREENING [facility] Start: 06-09-2022 Mammography MAMMOGRAM [facility] Start: 03-29-2022 Influenza vaccination INFLUENZA (#1) [facility] Start: 12-25-2021 Bacteria identified in Urine by Culture Urine Culture [facility] Start: 10-04-2021 COVID-19 VACCINE (4 - Booster for Pfizer series) COVID-19 VACCINE (4 - Booster for Pfizer series) [facility] Start: 10-04-2021 COVID-19 VACCINE (4 - Pfizer series) COVID-19 VACCINE (4 - Pfizer series) [facility] Start: 07-29-2021 DEPRESSION ASSESSMENT DEPRESSION ASSESSMENT [facility] Start: 03-09-2021 COVID-19 VACCINE (3 - Booster for Pfizer series) COVID-19 VACCINE (3 - Booster for Pfizer series) [facility] Start: 04-03-2020 Cobalamin (Vitamin B12) [Mass/Vol] Vitamin B12, Serum [facility] Work Phone: Start: 02-01-2020 Cobalamin (Vitamin B12) [Mass/Vol] Vitamin B12, Serum [facility] Work Phone: Start: 02-01-2020 Ferritin [Mass/Vol] Ferritin, Serum [facility] Work Phone: Start: 12-03-2019 Mri any jt upper extremity w/o & w/contr matrl MRI Shoulder w/wo Contrast [facility] Work Phone: Start: 12-01-2019 CT Chest with Contrast [facility] Work Phone: Start: 11-06-2019 Bilateral mammography Mamm - Digital Diagnostic Mammogram Bilateral w/ Tomosynthesis [facility] Work Phone: Start: 1998 HEPATITIS A (1 of 2 - Risk 2-dose series) HEPATITIS A (1 of 2 - Risk 2-dose series) [facility] Start: 1998 Hepatitis A Vaccine (1 of 2 - Risk 2-dose series) Hepatitis A Vaccine (1 of 2 - Risk 2-dose series) [facility] Start: 1998 HEPATITIS B (1 of 3 - Risk 3-dose series) HEPATITIS B (1 of 3 - Risk 3-dose series) [facility] Start: 1998 Hepatitis B Vaccine (1 of 3 - 19+ 3-dose series) Hepatitis B Vaccine (1 of 3 - 19+ 3-dose series) [facility] Start: 1997 Anxiety Screening Anxiety Screening [facility] Start: 1997 Depression Screening Depression Screening [facility] Start: 1997 MMR (1 of 2 - Risk 2-dose series) MMR (1 of 2 - Risk 2-dose series) [facility] Start: 1997 MMR Vaccine (1 of 2 - Risk 2-dose series) MMR Vaccine (1 of 2 - Risk 2-dose series) [facility] Start: 1989 Meningococcal B Vaccine: Consider Based On Risk (1 of 4 - Increased Risk) Meningococcal B Vaccine: Consider Based On Risk (1 of 4 - Increased Risk) [facility] Start: 1989 MENINGOCOCCAL B: Consider based on risk (1 of 4 - Increased Risk Bexsero 2-dose series) MENINGOCOCCAL B: Consider based on risk (1 of 4 - Increased Risk Bexsero 2-dose series) [facility] Start: 1989 MENINGOCOCCAL B: Consider based on risk (1 of 4 - Increased Risk) MENINGOCOCCAL B: Consider based on risk (1 of 4 - Increased Risk) [facility] Start: 1985 Pneumococcal vaccination Pneumococcal Vaccine (1 of 2 - PCV) [facility] Start: 1980 HEPATITIS A (1 of 2 - Risk 2-dose series) HEPATITIS A (1 of 2 - Risk 2-dose series) [facility] Alanine aminotransferase [Enzymatic activity/volume] in Serum or Plasma [facility] Albumin [Mass/volume ] in Serum or Plasma [facility] Alkaline phosphatase [Enzymatic activity/volume] in Serum or Plasma [facility] Anion gap in Serum o r Plasma [facility] Bacteria identified in Urine by Culture [facility] Work Phone: Bacteria identified in Urine by Culture URINE CULTURE Microbiology Routine Urinary frequency Ordered: 07/16/2024 [facility] Work Phone: Comment on above: Ordered: 07/16/2024 BACTERIAL VAGINOSIS NAAT BACTERIAL VAGINOSIS NAAT Lab Routine Urinary frequency Vaginal odor Ordered: 07/16/2024 [facility] Comment on above: Ordered: 07/16/2024 Bilirubin, total measurement [facility] BUN/Creatinine ratio [facility] Calcium [Mass/volume ] in Serum or Plasma [facility] RACHELLE/TRICHOMONAS NAAT RACHELLE/TRICHOMONAS NAAT Lab Routine Urinary frequency Vaginal odor Ordered: 07/16/2024 [facility] Comment on above: Ordered: 07/16/2024 Carbon dioxide, tota l [Moles/volume] in Central venous blood [facility] Creatinine [Mass/volume] in Serum or Plasma [facility] End: 11-14-2024 DBT Breast - bilateral screening NEL SCREENING W NURIA Radiology Routine Encounter for screening mammogram for breast cancer 1 Occurrences starting 10/16/2023 until 11/14/2024 [facility] Work Phone: Comment on above: 1 Occurrences starting 10/16/2023 until 11/14/2024 End: 11-27-2024 DBT Breast - bilateral screening NEL SCREENING W NURIA Radiology Routine Encounter for screening mammogram for malignant neoplasm of breast 1 Occurrences starting 10/29/2023 until 11/27/2024 [facility] Work Phone: Comment on above: 1 Occurrences starting 10/29/2023 until 11/27/2024 DBT Breast - bilateral screening NEL SCREENING W NURIA Radiology Routine Encounter for screening mammogram for breast cancer 11/21/2023 9:47 AM EDT [facility] Work Phone: End: 04-02-2025 DBT Breast - bilateral screening NEL SCREENING W NURIA Radiology Routine Encounter for screening mammogram for breast cancer 1 Occurrences starting 03/03/2024 until 04/02/2025 [facility] Work Phone: Comment on above: 1 Occurrences starting 03/03/2024 until 04/02/2025 Glucose [Mass/volume ] in Serum or Plasma [facility] H/O: section History of 3 sukumar an sections [facility] History of colonoscopy History of colonoscopy [facility] Insertion intrauterine device iud INSERT INTRAUTERINE DEVICE Procedures Routine Abnormal uterine bleeding (AUB) Adenomyosis of uterus Ordered: 11/21/2023 [facility] Work Phone: Comment on above: Ordered: 11/21/2023 End: 08-17-2023 NEL SCREENING W NURIA NEL SCREENING W NURIA Radiolo gy Routine Encounter for screening mammogram for breast cancer 1 Occurrences starting 07/18/2022 until 08/17/2023 [facility] Work Phone: Comment on above: 1 Occurrences starting 07/18/2022 until 08/17/2023 End: 10-13-2023 NEL SCREENING W NURIA NEL SCREENING W NURIA Radiolo gy Routine Encounter for screening mammogram for malignant neoplasm of breast 1 Occurrences starting 09/13/2022 until 10/13/2023 [facility] Work Phone: Comment on above: 1 Occurrences starting 09/13/2022 until 10/13/2023 Measurement of renal function [facility] Past history of procedure History of esophagogastroduodenoscopy (EGD) [facility] Patient Education [facility] Work Phone: Patient referral [facility] Work Phone: Potassium measurement [facility] Removal intrauterine device iud REMOVE INTRAUTERINE DEVICE Procedures Routine Malpositioned intrauterine device (IUD), initial encounter Ordered: 11/21/2023 [facility] Comment on above: Ordered: 11/21/2023 Serum chloride measurement [facility] Sodium measurement [facility] Total protein measurement [facility] Urea nitrogen [Mass/volume] in Serum or Plasma [facility] Urine culture [facility] Work Phone: [facility] NEGATED: Highlighted row has been ruled out! Planned Goals not documented [facility] Work Phone: Immunizations Immunization Date Immunization Notes Care Provider [facility] 06-07-2022 influenza virus vaccine, unspecified formulation Marleni Freeman MD Work Phone: [facility] 06-14-2021 influenza, injectabl e, quadrivalent, contains preservative Brenda Podlogar MAINTENANCE TECHNICIAN 3RD SHIFT.IT PROJECT LEAD Work Phone: [facility] 06-14-2021 tetanus toxoid, redu belle diphtheria toxoid, and acellular pertussis vaccine, adsorbed Brenda Podlogar MAINTENANCE TECHNICIAN 3RD SHIFT.IT PROJECT LEAD Work Phone: [facility] 04-28-2020 Influenza virus vaccine Quita e Podlogar WHEEL INSTALLER-C Work Phone: [facility] Payers Date Payer Category Payer Self-pay [id number] 2019 Private Health Insurance MMO SUP ERMED PPO [id number] 2019 Unknown MMO MMO SU[employer] PLUS [id number] 2019-Present [phone] [address] [place] [address] O [id number] 2019 Unknown [id number] 2013 Unknown 1979 Unknown [id number] 1979 Unknown [id number] Unknown [id number] Unknown [id number] Unknown [id number] Unknown [id number] Unknown [id number] 462 Unknown [id number] Social History Date Type Detail Facility Tobacco smoking consumption unknown [facility] Start: 01-09-2016 End: 05-22-2022 Tobacco smoking status WAIS Never smoked tobacco [facility] Start: 01-09-2016 End: 05-22-2022 Tobacco use and exposure Smokeless tobacco non-user [facility] Start: 07-17-2021 End: 10-15-2024 Alcohol intake Current drinker of alcohol (finding) [facility] Start: 06-12-2021 End: 08-13-2022 History SDOH Alcohol Frequency 3 [facility] Start: 06-12-2021 End: 08-13-2022 History SDOH Alcohol Std Drinks 1 [facility] Start: 04-18-2017 History SDOH Alcohol Comment 2-3 glasses of wine per week, not while [facility] Start: 06-12-2021 End: 08-13-2022 History SDOH Social Connections Phone 5 [facility] Start: 06-12-2021 End: 08-13-2022 History SDOH Social Connections Get Together 2 [facility] Start: 1980 Sex Assigned At Not on file C [facility] Start: 1980 Sex Assigned At Female F [facility] Start: 08-13-2022 End: 01-07-2023 Sex Assigned At [facility] Start: 08-13-2022 History SDOH Alcohol Frequency 4 [facility] Start: 08-13-2022 End: 01-07-2023 History of Social function [facility] Active Member of [facility] bs or Organizations Not on file [facility] Are you now , , , , never or living with a partner? [facility] How often to you hav e a drink containing alcohol? 2-3 time sa week [facility] How many standard drinks containing alcohol do you have on a typical day? 1 or 2 [facility] How often do you hav e 6 or more drinks on 1 occasion? Never [facility] Do you feel stress - tense, restless, nervous, or anxious, or unable to sleep at night because your mind is troubled all the time - these days [OSQ] Rather much [facility] (I/We) worried wheth er (my/our) food would run out before (I/we) got money to buy more. Never true [facility] In the past 12 month s, was there a time when you were not able to pay the mortgage or rent on time? No [facility] Do you belong to any clubs or organizations such as shinto groups, unions, fraternal or athletic groups, or school groups? Yes [facility] How often to you hav e a drink containing alcohol? 2-4 times a month [facility] How often do you hav e 6 or more drinks on 1 occasion? Less than monthly [facility] Start: 10-28-2017 Tobacco Use Tobacco Use [facility] How many standard drinks containing alcohol do you have on a typical day? 3 or 4 [facility] Do you feel stress - tense, restless, nervous, or anxious, or unable to sleep at night because your mind is troubled all the time - these days [OSQ] To some extent [facility] NEGATED: Highlighted row - - [facility] Work Phone: Medical Equipment Procedure Code Equipment [...] status health issues are not documented Disease [facility] Work Phone: Mental Status Date Assessment Result Facility NEGATED: Highlighted row Cognitive function [Interpretation] Cognitive status health issues are not documented Disease [facility] Work Phone: Clinical Notes 04-18-2017 to 01-12-2025 Telephone Encounter - Coreen Perera RN - 01/12/2025 3:33 PM EDTTelephone Encounter - Coreen Perera RN - 01/12/2025 3:33 PM EDTTelephone Encounter - Chio Larry - 01/12/2025 2:17 PM EDT Note Date & Type Note Facility 01-12-2025 Telephone encounter Note Pt notified that this RN looked at DM schedule and talked with DM's MA and unfortunately next weight management appt is not until 04/15/25. Pt's appt has been added to wait list. Pt notified and appreciative. Coreen Perera RN [facility] 01-12-2025 Miscellaneous Notes Pt notified that this RN looked at DM schedule and talked with DM's MA and unfortunately next weight management appt is not until 04/15/25. Pt's appt has been added to wait list. Pt notified and appreciative. Coreen Perera, RN March 04 I have an opening- I can't see what spot is open the 10:20 or 10:50. Patient calling in due to having to cancel her weight management follow up for today. She was in the ER for her gallbladder. Patient put on the schedule for next available 04/15 and added to the waitlist. Patient requested me to send message to Dr. Freeman regarding this update, please review and advise. Chio Larry January 12, 2025 2:19 PM documented in this encounter [facility] 01-12-2025 Telephone encounter Note March 04 I have an opening- I can't see what spot is open the 10:20 or 10:50. [facility] 01-12-2025 Telephone encounter Note Patient calling in due to having to cancel her weight management follow up for today. She was in the ER for her gallbladder. Patient put on the schedule for next available 04/15 and added to the waitlist. Patient requested me to send message to Dr. Freeman regarding this update, please review and advise. Chio Larry January 12, 2025 2:19 PM [facility] 01-12-2025 Telephone encounter Note Yes I think getting a liver bx during her gallbladder surgery would be most helpful. Please have her schedule a follow up appt with us after her surgery so we can review and discuss in detail thank you SAGAR Ruiz for patient with advice from Beth above Asked to call back Spoke to Esther at Dr Sandhu's office and advised her also that Beth would like a liver bx [facility] 01-12-2025 Miscellaneous Notes Yes I think getting a liver bx during her gallbladder surgery would be most helpful. Please have her schedule a follow up appt with us after her surgery so we can review and discuss in detail thank you SAGAR Ruiz for patient with advice from Beth above Asked to call back Spoke to Esther at Dr Sandhu's office and advised her also that Beth would like a liver bx JESUS 10/01/22 In [place] ED on 12/28 Spoke to patient Having gallbladder out on In ED, AST 47 ALT 82 Alk Phos 211 Advised possible fatty liver Met with surgeon, Dr Yaw Sandhu, and he suggested asking if GI wanted a liver bx since he will be removing the gallbladder. ED notes scanned into chart for review. Advised patient that since she hasn't been seen in over 2 years that we may not be able to make that call. Advised patient that she needs an appointment scheduled. Patient last saw Beth in September 2022 and had to cancel her appointment today with Linda due to being in the emergency room. Patient's called to cancel and inform our office that the patient is having her gallbladder removed on with Dr. Yaw Sandhu (Office: [phone]). This provider would like to know if he should also complete a Liver Biopsy during that procedure. If patient or needs contacted back with any questions, please call her cell phone number on file. documented in this encounter [facility] 01-12-2025 Telephone encounter Note JESUS 10/01/22 In [place] ED on 12/28 Spoke to patient Having gallbladder out on In ED, AST 47 ALT 82 Alk Phos 211 Advised possible fatty liver Met with surgeon, Dr Yaw Sandhu, and he suggested asking if GI wanted a liver bx since he will be removing the gallbladder. ED notes scanned into chart for review. Advised patient that since she hasn't been seen in over 2 years that we may not be able to make that call. Advised patient that she needs an appointment scheduled. [facility] 01-12-2025 Telephone encounter Note Patient last saw Beth in September 2022 and had to cancel her appointment today with Linda due to being in the emergency room. Patient's called to cancel and inform our office that the patient is having her gallbladder removed on with Dr. Yaw Sandhu (Office: [phone]). This provider would like to know if he should also complete a Liver Biopsy during that procedure. If patient or needs contacted back with any questions, please call her cell phone number on file. [facility] 01-12-2025 Radiology Diagnostic study note [facility] Imaging Services [address], [place] [id number] Abdomen Limited MR#: [id number] Acct: [id number] Name: JENNIFER MANNING Rep #: [id number] : 1980 F 44 From: Bessie Petersen MD PCP: Brenda Roy, WHEEL INSTALLER-C Status: REG E R Study:Abdomen Limited Date of Exam: 12/27 02/19 Exam# [id number] Ordering Dr: Shara Mendez DO PROCEDURE: ABDOMEN LIMITED 01/12/2025 REASON FOR EXAM: RUQ PAIN TECHNIQUE: ABDOMEN LIMITED COMPARISON: 12/28/2024. FINDINGS: Liver: Unremarkable hepatic echotexture. 16.8 cm. Unremarkable flow in the portal vein. Gallbladder: Diffuse thickening of the wall of the gallbladder measuring 9 mm (previously 7 mm). Positive sonographic Kamara. Multiple gallstones are noted. No evidence of pericholecystic free fluid on thecurrent exam. Common bile duct: Dilated measuring 10 mm. Pancreas: Limited evaluation of the pancreatic tail secondary to overlying bowelgas. Kidneys: The right kidney measures 10.6 x 5.7 x 4.8 cm. Right renal cortical thickness measuring 2 cm. US/Abdomen Limited IMPRESSION: Cholelithiasis. Diffuse thickening of the wall of the gallbladder. Positive sonographic Kamara. Findings are probably unchanged since the prior exam. Acute cholecystitis remains in the differential diagnosis although felt less likely due to under distention of the gallbladder on the current exam. This needs clinical evaluation and follow-up. Dilated common bile duct, increased. Reading Location: [place] [address] CC: WHEEL INSTALLER-C Brenda Roy; Andrez Mendez DO ~ Croze Cutter: Signed [facility] 01-04-2025 Evaluation note Diagnosis Onset Date Resolution Abnormal LFTs acute January 04, 025 10:32am Cholelithiases acute January 04, 2025 10:32am Common bile duct dilatation acute January 04, 2025 10:32am Right upper quadrant abdominal pain acute January 04, 2025 10:32am Abdominal pain, epigastric inactive January 04, 2025 10:32am [facility] Work Phone: 1(784) 930-437606-05-2025 History of Present illness Narrative* Brenda Ryo APRN.IT PROJECT LEAD - 12/31/2024 9:00 AM EDT Patient was late to appointment. Asked to wait to be seen however she as unable to wait. Brenda Roy APRN.CNP documented in [facility]06-05-2025 NoteHNO ID: [id number] Author: BRENDA ROY APRN.CNP Service: ? Author Type: Nurse Practitioner Type: Progress Notes Filed: 12/31/2024 10:27 Note Text: Patient was late to appointment. Asked to wait to be seen however she as unable to wait. Brenda Roy APRN.[facility]06-03-[facility] Telephone encounter Note* Telephone Encounter - Suzanna Ackerman LPN - 12/29/2024 2:37 PM EDT Patient notified [facility]06-03-2025 Miscellaneous Notes* Telephone Encounter - Suzanna Ackerman LPN - 12/29/2024 2:37 PM EDT Patient notified * Telephone Encounter - Marleni Almonte MD - 12/29/2024 1:18 PM EDT Does not need follow up for Cyst unless significant pain. Will review concerns next visit. * Telephone Encounter - Doris Michele RN - 12/29/2024 12:46 PM EDT Care everywhere updated and 12/28/24 [facility] ER records available to review there. Pelvic u/s result copied below. Doris Michlee RN US/Transvaginal Non- IMPRESSION: 4.6 x 3.2 cm large cyst within the right ovary. No acute ovarian torsion. IUD noted within the uterus. documented in [facility]06-03-2025 Telephone encounter Note * Telephone Encounter - Marleni Almonte MD - 12/29/2024 1:18 PM EDT Does not need follow up for Cyst unless significant pain. Will review concerns next visit. [facility]06-03-2025 Telephone encounter Note* Telephone Encounter - Drois Michele RN - 12/29/2024 12:46 PM EDT Care everywhere updated and 12/28/24 [facility] ER records available to review there. Pelvic u/s result copied below. Doris Michele RN US/Transvaginal Non- IMPRESSION: 4.6 x 3.2 cm large cyst within the right ovary. No acute ovarian torsion. IUD noted within the uterus. [facility]06-02-2025 Radiology Diagnostic study note [facility] Imaging Services [address], [place] [id number] Transvaginal Non- MR#: [id number] Acct: [id number] Name: JENNIFER MANNING Rep #: [id number] : 1980 F 44 From: Ana Valenzuela MD PCP: Brenda Roy, WHEEL INSTALLER-C Status: REG E R Study:Transvaginal Non- Date of Exam: 12/28/24 Exam# [id number] Ordering Dr: Moises Cooper DO PROCEDURE: TRANSVAGINAL [...] IUD noted within the uterus. Reading Location: [facility] CC: WHEEL INSTALLERKirstieC Brenda Roy; Dr. Moises Mtz DO ~ Croze Cutter: Signed [facility]06-02-2025 Radiology Diagnostic study note [facility] Imaging Services [address], [place] [address] Gallbladder MR#: [id number] Acct: [id number] Name: JENNIFER MANNING Rep #: [id number] : 1980 F 44 From: Rosa Arauz MD PCP: Brenda Roy, NATHANC Status: REG E R Study:Gallbladder Date of Exam: 12/28/24 Exam# [id number] Ordering Dr: Moises Cooper DO PROCEDURE: GALLBLADDER [...] suggestive of mild hepatic steatosis. Reading Location: [id number] CC: WHEEL INSTALLERKirstieC Brenda Roy; Dr. Moises Mtz DO ~ Croze Cutter: Signed [facility]06-02-2025 Radiology Diagnostic study note [facility] Imaging Services [address] [place] [address] Abdomen/Pelvis W IV Cont ONLY MR#: [id number] Acct: [id number] Name: JENNIFER MANNING Rep #: [id number] : 1980 F 44 From: Rosa Arauz MD PCP: Brenda Roy, NATHANC Status: REG E R Study:Abdomen/Pelvis W IV Cont ONLY Date of E xam: 12/28/24 Exam# [id number] Ordering Dr: Moises Cooper DO PROCEDURE: ABDOMEN/PELVIS [...] analysis and consider GI referral. Reading Location: [id number] CC: WHEEL INSTALLER-C Brenda Roy; Dr. Moises Mtz DO ~ Croze Cutter: Signed [facility]06-02-2025 Radiology Diagnostic study note [facility] Imaging Services [address] [place] [address] Chest PA and Lateral MR#: [id number] Acct: [id number] Name: JENNIFER MANNING Rep #: [id number] : 1980 F 44 From: Rosa Arauz MD PCP: Brenda Roy, WHEEL INSTALLER-C Status: REG E R Study:Chest PA and Lateral Date of Exam: 12/28/24 Exam# [id number] Ordering Dr: Moises Cooper DO PROCEDURE: CHEST [...] IMPRESSION: No acute cardiopulmonary abnormality. Reading Location: [id number] CC: KHADIJAH Gutierrez Podlogchris; Dr. Moises Dewitt-Jacinta, DO ~ Croze Cutter: Signed [facility]04-01-2025 Telephone encounter Note* Telephone Encounter - Mirian lOguin RN - 10/27/2024 1:23 PM EDT Left message to call office. Mirian Olguin RN [facility]04-01-2025 Miscellaneous Notes* Telephone Encounter - Mirian Olguin [...] covered by patients plan. Patient notified. Michael Weheler MA documented in this encounterV[facility]04-01-2025 Note* Addendum Note - Marleni Almonte MD - 10/27/2024 1:12 PM EDTAddended by: MARLENI FREEMAN on: 10/27/2024 01:12 PM Modules accepted: Orders [facility]04-01-2025 Telephone encounter Note* Telephone Encounter - Marleni Almonte MD - 10/27/2024 1:12 PM EDT Please let patient know her Previous meds ordered, thank you [facility]04-01-2025 Telephone encounter Note* Telephone Encounter - Michael Wheeler MA - 10/27/2024 8:52 AM EDT Received PA request for Zepbound. Submitted and received immediate response that it is not covered by patients plan. Patient notified. Michael Wheeler MA [facility]03-20-2025 Instructions* Patient Instructions* Marleni Almonte MD - [...] dose escalation. Video Instructions for Injecting Mounjaro: https://www.youtube.com/watch?v=nxnhBdyTSZ0 Savings Card: https://www.1001 Menus/savings-resources Link to Package Worker Website Satmex Medication Guide: https://pi.[employer]/us/oqcjwfrd-ki-tq.pdf?s=mg Written pen instructions: https://uspl.[employer].com/mounjaro/mounjaro.html#ug0 Tirzepatide: Patient drug information What is Mounjaro? [...] SUMMARY WITH WARNINGS Important Facts About Mounjaro (fbvi-SXKX-JI). It is also known as tirzepatide. Mounjaro [...] effects. You can report side effects at 5-667-NNQ-[phone] or www.fda.gov/medwatch. Before using Your healthcare provider [...] you take any other prescription medicines or swnd-ckn-xivixby drugs, vitamins, or herbal supplements? How to [...] promptly. Learn more For more information, call 7-672-XpfeaBj ( ) or go to www.[employer]. This information does not take the place of talking with your healthcare provider. Be sure to talk to your healthcare provider about Mounjaro and how to take it. Your healthcare provider is the best person to help you decide if Mounjaro is right for you. Mounjaro and its delivery device base are trademarks owned or licensed by [employer], its subsidiaries, or affiliates. KALYAN MIDDLETON CBS NOVEMBER2021 Access [employer] Online for additional drug information, tools, and databases. Copyright prollie. All rights reserved. Contributor Disclosures (For additional information see Nicopatide: Drug information) You must carefully read the [...] much, and when it happened. Last Reviewed [id number] Consumer Information Use and Disclaimer This generalized [...] or approved for treating a specific patient. [employer] and its affiliatesdisclaim any warranty or liability relating to this information or the use thereof. The use of thisinformation is governed by the Terms of Use, available at https://www.Alcresta.com/en/know/zfvwftwq-syuevueskqtla-lzhnc. Why Is Protein So Important for Weight [...] are economical and optimized for taste by [employer] - they are designed to make you [...] you from food temptations. Sometimes a quick 84-22-utgehf walk is all it takes to recenter [...] Ways to Stop Eating When You're Bored (Hordspot) Creating a Mindful Eating Environment: 10Mindless Eating [...] higher in calories, etc. Serve Your Main [facility] on the Stove or Counter. Studies show [...] fruits rather than less healthy snack foods. https://www.obesityaction.org/community/news/community-news/ndllcc-k-jwqnonz-eat ing-environment/ Tips for eating away from home: Youtube video: https://www.youArkadiumube.com/watch?v=E6pGMUhABvJ Meals away from home make it harder [...] content for their menu items. Check out www.eLifestyles for a listing of over 50,000 foods, [...] health nut and wild child. At a banner joint and really want the pulled pork? [...] favoriteONE. Smart: Pick an appetizer salad! When [place] researchers gave women a 100-calorie appetizer ofeither [...] Catch-22. But before you beat yourself up, supervisor major appliance assembly and obesity specialist Isaias Hernandez MD, has [...] How can you create a healthy, long-term, ukxxw-piqr-bx diet? Learn what s healthy -- and what s not. (A inspector filters or dietitian can help.) Practice portion control, even when eating healthy foods. Avoid empty calories, but treat yourself once in a while. Don t diet. Instead, focus on forming healthy habits for life. Exercise. Be an equal opportunity closing manager: Do both aerobic exercise (three to five [...] -- when it comes to weight loss. https://health.[facility].org/vdg-amftps-meib-bset-hfmnxe-xuq-sbjq-em-zjz-b ack/ Why People Diet, Lose Weight and Gain It All Back - [facility] Why You May Want to Weigh Yourself [...] investigated how much self-weighing frequency predicted weight exchange floor manager two years in working adults ([employer]usted Source). [...] you need to achieve your weight goals. https://www.healthline.com/nutrition/daily-weighing documented in this encounterVeterans Health [facility]03-20-2025 History of Present illness Narrative* Marleni Almonte [...] the last appointment: - getting UTIs with [place] regularly- would like more abx to use [...] appointment): Dietary changes: B-protein shake- powder, chobani egyptian drink (20g) L- yogurt and cottage cheese [...] which included preparing to see the patient, wisp-zu-ynvx patient care, completing clinical documentation, obtaining and/or reviewing separately obtained history, performing a medically appropriate examination, counseling and educating the pat ient/family/caregiver, and ordering medications, tests, or procedures. Marleni Avendaño MD, FACOG, DABOM documented in this encounterVeterans Health Administration03-20-2025 NoteHNO ID: [id number] Author: MARLENI ALMONTE MD Service: ? Author [...] the last appointment: - getting UTIs with [place] regularly- would like more abx to use [...] appointment): Dietary changes: B-protein shake- powder, chobani egyptian drink (20g) L- yogurt and cottage cheese [...] Cost. Ins coverage? >Metformin (more content not included)...[facility]01-13-2025 Telephone encounter Note* Telephone Encounter - [...] Ruelas LPN August 10, 2024 9:35 AM [facility]01-13-2025 Miscellaneous Notes* Telephone Encounter - Love Ruelas [...] 10, 2024 9:35 AM documented in this encounterVeterans Health Administration12-19-2024 NoteHNO ID: [id number] Author: KVNG ROLDAN PA Service: ? Author Type: Physician Handicraft Or Hobby Shop Manager Type: Progress Notes Filed: 07/16/2024 18:29 Note Text: This note was created using NetClarityriter. Subjective Jennifer Manning is a 43 year [...] the Keflex however. Patient did take an ieoj-obo-wvolipr medication, unsure what is called, but it [...] for prevention given - (more content not included)...[facility]12-19-2024 History of Present illness Narrative* Kvng Roldan PA - 07/16/2024 6:26 PM EST This note was created using [employer]uit[employer]. Subjective Jennifer Manning is a 43 year [...] the Keflex however. Patient did take an nqhe-uvu-zauexyw medication, unsure what is called, but it [...] ER evaluation. DAVID Abdi documented in this encounterVeterans Health Administration11-18-2024 Telephone encounter Note * Telephone Encounter - [...] Ruelas LPN June 15, 2024 1:12 PM [facility]11-18-2024 Miscellaneous Notes* Telephone Encounter - Love Ruelas [...] 15, 2024 1:12 PM documented in this encounterVeterans Health Administration10-21-2024 Instructions* Patient Instructions* Marleni Almonte MD - [...] Your Sleep To Impact Your Weight Loss: [email or web address]://Mercatus.com/ep42/ Weight Loss and Sleep Updated May 06, [...] other sleep disorders) commonly leads to metabolic iubdmglibxjex51. Poor sleep is associated with increased oxidative [...] researchers are still working to understand this nsvevkambo32, it s well known that exercise is [...] can improve daytime concentration and decrease daytime qeqyvowgtp87. Sleep and Obesity In children and adolescents, [...] the amount of weight lost17 and encourage txycqxnkac18. Tips for Quality Sleep During Weight Loss There are many ways to improve sleep. Here are a few research-based tips for sleeping better when you re trying to lose weight: Keep a regular sleep schedule: Big swings in your sleep schedule or trying to catch up on sleep after a week of late nights can cause changes in metabolism and reduce insulin cshktwqedgh66, making iteasier for blood sugar to be elevated. Sleep in a dark room: Exposure to artificial light while sleeping, such as a TV or bedside lamp, isassociated with an increased risk of weight gain and uyzuwse30. Don t eat right before bed: Eating late may reduce the success of weight loss lfiicwij49 Reduce Stress: Chronic stress may lead to poor sleep and weight gain in several ways, including eating to cope with negative drxjrozw38 Be an Early Bird: People with late [...] health and weight loss information you read xiizyl63 atface value. Weight loss isn t appropriate for everyone and doesn t always mean better health. Remember that health is a lifelong journey that includes not only healthy habits but also having a healthy relationship with your body. If you re considering weight loss, the National Institutes of Health offers a helpful resource for choosing a safe weight loss hqaqqcv28qHbsfafw Source National [place] of Diabetes and Digestive and Kidney DiseasesNIDDK research creates knowledge about and treatmentsfor diseases that are among the most chronic, costly, and consequential for patients, their families, and the Nation. niddk.nih.gov . https://www.sleepfoundation.org/physical-health/zqecfn-ntiq-odl-sleep Sleep Hygiene Tips Set a sleep schedule [...] in the Department of Nutrition at the [employer]. Choose the right anti-inflammatory foods, and you may be able to reduce your risk of illness. Consistently pick the wrong ones, and you could accelerate the inflammatory disease process. Get simple tips to fight inflammation and stay healthy -- from [facility] experts. Protect yourself from the damage of chronic inflammation Click here to learn more Foods that cause inflammation Try to avoid or limit these foods as much as possible: refined carbohydrates, such as white bread and pastries Uzbek fries and other fried foods soda and [...] which suggests weight gain isn't the sole six horse hitch driver. Some of the food components or [...] 3g protein, 8g carbohydrate in 1 cup [place]- 4.3g protein, 19g carbohydrate in 1/2cup Spinach- 1g protein, 1g carbohydrate in 1 cup 3g carb8g carb 20g protein, 4 carbohydrate per scoop QUICK VEGAN PROTEIN PRODUCTS/SNACKS: NOT high in protein- BUT LOW CARB SUBSTITUTE FOR NOODLES documented in this encounterVeterans Health Administration10-21-2024 History of Present illness Narrative* Marleni Almonte [...] which included preparing to see the patient, ljik-mg-oocp patient care, completing clinical documentation, obtaining and/or reviewing separately obtained history, performing a medically appropriate examination, counseling and educating the pat ient/family/caregiver, and ordering medications, tests, or procedures. Marleni Avendaño MD, FACOG, DABOM documented in this encounterVeterans Health Administration10-21-2024 NoteHNO ID: [id number] Author: MARLENI ALMONTE MD Service: ? Author [...] No contraindications or me (more content not included)...[facility]08-30-2024 Telephone encounter Note* Telephone Encounter - Mirian Olguin RN - 03/27/2024 11:21 AM EDT Patient notified and voiced understanding. Mirian Olguin RN [facility]08-30-2024 Miscellaneous Notes* Telephone Encounter - Mirian Olguin [...] comes back. Push fluids. documented in this encounterVeterans Health Administration08-30-2024 Telephone encounter Note * Telephone Encounter - Mirian Olguin RN - 03/27/2024 9:33 AM EDT Left message to call office. Mirian Olguin RN [facility]08-30-2024 Telephone encounter Note* Telephone Encounter - Mirian Olguin RN - 03/27/2024 9:33 AM EDT ----- Message from Marleni Freeman MD sent at 03/27/2024 9:21 AM EDT ----- Please notify patient- Based on urinalysis it looks like she has UTI- I will treat going into weekend- we may need to change ABX when culture comes back. Push fluids. [facility]08-20-2024 Telephone encounter Note* Telephone Encounter - Doris Michele RN - 03/17/2024 8:42 AM EDT Last weight mgmt f/u was 01/28/24 and she is to return in 3 months from then. Only 30 tablets were given at appointment. Doris Michele RN [facility]08-20-2024 Miscellaneous Notes* Telephone Encounter - Doris Michele RN - 03/17/2024 8:42 AM EDT Last weight mgmt f/u was 01/28/24 and she is to return in 3 months from then. Only 30 tablets were given at appointment. Doris Michele RN documented in this encounterVeterans Health Administration08-12-2024 Instructions* Patient Instructions* Augusta Anderson MD - 03/09/2024 9:29 AM EDT Please do labs on fasting at 8 am Please hold any supplements including Multivitamin for 5 days before the labs are drawn documented in this encounterVeterans Health Administration08-12-2024 NoteHNO ID: [id number] Author: AUGUSTA ANDERSON MD Service: ? Author [...] no suspicious rashes or (more content not included)...[facility]08-12-2024 History of Present illness Narrative* Augusta [...] which included preparing to see the patient, wvar-aq-eirj patient care, completing clinical documentation, obtaining and/or reviewing separately obtained history, performing a medically appropriate examination, counseling and educating the pat ient/family/caregiver, ordering medications, tests, or procedures, and independently interpreting results (not separately reported). Medical Decision Making: Medical Decision Making Level: 1 - N/A Augusta Anderson MD Endocrinology Associate Staff [facility] Endocrinology and Metabolism [place] [phone] documented in this encounterVeterans Health Administration08-06-2024 NoteHNO ID: [id number] Author: MARLENI ALMONTE MD Service: ? Author Type: Physician Type: Progress Notes Filed: 03/03/2024 08:49 Note Text: Traffic Safety Administrator offered: Patient declinesRadhika Rodriguez is a 43 year old who presents [...] no problems w/ this , scheduled c/s Hydrology Technician History LMP: 04/25/2021, IUD Age at Menarche: Age at First : Age at Menopause: Hydrology Technician History Comments: Sexual Activity: Yes; Male Contraception: [...] external genitalia normal, normal Bartholin's glands, urethra, Gholson's glands, no vulvar lesions, no cervical lesions, [...] as needed 5) [facility] of Present illness Narrative* Marleni Almonte MD - 03/03/2024 8:13 AM EDT Traffic Safety Administrator offered: Patient declines. Jennifer is a 43 [...] no problems w/ this , scheduled c/s Hydrology Technician History LMP: 04/25/2021, IUD Age at Menarche: Age at First : Age at Menopause: Hydrology Technician History Comments: Sexual Activity: Yes; Male Contraception: [...] external genitalia normal, normal Bartholin's glands, urethra, Gholson's glands, no vulvar lesions, no cervical lesions, [...] endocrinology Marleni Avendaño MD documented in this encounterVeterans Health Administration07-15-2024 Telephone encounter Note * Telephone Encounter - Marleni Almonte MD - 02/10/2024 2:27 PM EDT ordered [facility]07-15-2024 Miscellaneous Notes* Telephone Encounter - Marleni Almonte MD - 02/10/2024 2:27 PM EDT ordered * Telephone Encounter - Charissa Escobar RN - 02/07/2024 4:41 PM EDT Patient notified. 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 Consult order for Endo pending. Charissa Escobar [...] is not my speciality. documented in this encounterVeterans Health Administration07-12-2024 Telephone encounter Note * Telephone Encounter - Charissa Escobar RN - 02/07/2024 4:41 PM EDT Patient notified. 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 Consult order for Endo pending. Charissa Escobar RN [facility]07-12-2024 Telephone encounter Note* Telephone Encounter - Charissa Escobar RN - 02/07/2024 4:22 PM EDT Left message for patient to call office. Charissa Escobar RN [facility]07-12-2024 Telephone encounter Note* Telephone Encounter - Charissa [...] up since that is not my speciality. [facility]07-02-2024 Instructions* Patient Instructions* Marleni Almonte MD - 01/28/2024 10:24 AM EDT Images from the original note were not included. DANE ESPINOZA [place] BODY on demand BrightNest Educational Podcasts: The Dr. Navarro Show- Real Conversations about Health and Weight * April 15, 2023 what you need to know about Carbohydrates and Weight *March 25, 2023 Protein why we need it and how to eat more Protein *March 04, 2023 Menopause and Weight Gain- All the Details with Dr. Tomasa Nunn *February 11, 2023 The Science Behind Ultra Processed Food and Weight Gain *November 26, 2022 Effects of sleep and Stress of Weight and Health with Dr. Debbie Porter-DO [place] * November 19, 2022 Recognizing and Resolving Emotional Eating with Dr. Dhaliwal Obesity: A Disease *November 19, 2022 Episode 80 Clinical conversations: The Role of Physical Activity in Weight Management * March 01, 2023 Episode 84 Clinical Conversations: NAFLD, The [place] Disease of Metabolic Syndrome *[place] 3. 2020 Episode 20 Article Reviews: The Role Ultra [...] investigated how much self-weighing frequency predicted weight exchange floor manager two years in working adults (24Trusted Source). [...] you need to achieve your weight goals. https://www.healthline.com/nutrition/daily-weighing A diet that leaves you feeling full [...] you from food temptations. Sometimes a quick 24-04-lxavuo walk is all it takes to recenter [...] Ways to Stop Eating When You're Bored (Hordspot) Creating a Mindful Eating Environment: 10 Mindless [...] higher in calories, etc. Serve Your Main [facility] on the Stove or Counter. Studies show [...] fruits rather than less healthy snack foods. https://www.obesityaction.org/community/news/community-news/ixljwq-z-kmhghee-eat ing-environment/ documented in this encounterVeterans Health Administration07-02-2024 History of Present illness Narrative* Marleni Almonte [...] which included preparing to see the patient, psdv-dl-ezdd patient care, completing clinical documentation, obtaining and/or reviewing separately obtained history, performing a medically appropriate examination, counseling and educating the pat ient/family/caregiver, and ordering medications, tests, or procedures. Marleni Avendaño MD, RICHA QUARLES documented in this encounterVeterans Health Administration07-02-2024 NoteHNO ID: [id number] Author: MARLENI ALMONTE MD Service: ? Author [...] 123 U/L 54 Cholesterol (more content not included)...[facility]04-30-2024 Instructions* Patient Instructions* Delma Castelan MA [...] please contact the office. documented in this encounterVeterans Health Administration04-30-2024 History of Present illness Narrative* Marleni Almonte [...] IUD source: office provided IUD lot #: [id number] Exp date: 12/2025 UNIVERSAL PROTOCOL / SAFETY [...] needed. Marleni Avendaño MD documented in this encounterVeterans Health Administration04-26-2024 Telephone encounter Note * Telephone Encounter - Giselle House MA - 11/22/2023 8:39 AM EDT Pt active on QuickMobile- message sent Giselle House MA [facility]04-26-2024 Miscellaneous Notes* Telephone Encounter - Giselle House MA - 11/22/2023 8:39 AM EDT Pt active on mychart- message sent Giselle House MA * Telephone Encounter - Ruth Witt APRN.CNP - 11/22/2023 8:34 AM EDT Please let patient know her mammogram is negative. Patient should continue with annual screenings. documented in this encounterVeterans Health Administration04-26-2024 Telephone encounter Note * Telephone Encounter - Ruth Witt APRN.CNP - 11/22/2023 8:34 AM EDT Please let patient know her mammogram is negative. Patient should continue with annual screenings. [facility] Work Phone: 1(420) 395-548304-26-2024 Note* Letter - [facility] - 11/22/2023 7:56 AM EDT November 25, 2023 PID: [id number] Jennifer Manning [address] [place] [id number] Dear Ms. Manning, We are pleased to [...] report will be kept [facility] file at [facility] as part of your permanent medical record and are available for your continuing care. Thank you for allowing us to help in meeting your health care needs. Sincerely, Dr. Ramos Interpreting Radiologist [facility] (Normal over 40) [facility]04-26-2024 Miscellaneous Notes* Letter - [facility] - 11/22/2023 7:56 AM EDT November 25, 2023 PID: [id number] Jennifer Manning [address] [place] [phone] Dear Ms. Manning, We are pleased to [...] report will be kept [facility] at [facility] as part of your permanent medical record and are available for your continuing care. Thank you for allowing us to help in meeting your health care needs. Sincerely, Dr. Ramos Interpreting Radiologist [facility] (Normal over 40) documented in this encounterVeterans Health Administration04-25-2024 Miscellaneous Notes* Telephone Encounter - Marleni Almonte MD - 11/21/2023 1:18 PM EDT ordered * Telephone Encounter - Suzanna Ackerman LPN - 11/21/2023 11:18 AM EDT Patient has appointment for IUD removal and reinsertion d/t malposition of current IUD. Please approve orders. Order will need linked to upcoming appointment documented in this encounterVeterans Health Administration04-25-2024 Telephone encounter Note * Telephone Encounter - Marleni Almonte MD - 11/21/2023 1:18 PM EDT ordered [facility]04-25-2024 Telephone encounter Note* Telephone Encounter - Suzanna Ackerman LPN - 11/21/2023 11:18 AM EDT Patient has appointment for IUD removal and reinsertion d/t malposition of current IUD. Please approve orders. Order will need linked to upcoming appointment [facility]04-25-2024 History of Present illness Narrative* Elidia Bowles [...] PATIENT PRESENTS WITH AN IMPLANTABLE OR ATTACHED COMMISSION ASSOCIATE: No RADIOLOGY DEPARTMENT: Mammography PERIPHERAL IV DATA: Not applicable SIGNED BY: Trip Gonzalez November 21, 2023 9:20 AM documented in this encounterVeterans Health Administration04-02-2024 Instructions* Patient Instructions* Marleni Almonte MD - [...] manifestations of hypothyroidism, section on 'Clinical manifestations'.) Erickson's syndrome -- A common feature in patients with [place] s syndrome is progressive central adiposity involving the trunk, abdomen, mesentery, and mediastinum. There is usually accumulation of fat tissue in the face and neck, with enlarged dorso- and supraclavicular fat pads. The extremities are usually spared and often exhibit muscular wasting. The excess of glucocorticoids in [place] s syndrome (iatrogenic or endogenous) induces 05-kyxy-iaqrbhzuuronbc dehydrogenase type 1 in visceral fat, enhancing its lipogenic capacity [79]. (See Epidemiology and clinical manifestations of [place] syndrome.) Hypothalamic obesity -- Hypothalamic obesity is [...] Catch-22. But before you beat yourself up, supervisor major appliance assembly and obesity specialist Isaias Hernandez MD, has [...] dieting can negatively affect your metabolism, Dr. Heranndez says. It doesn t matter the diet: low-carb, low-fat, ketogenic, whatever. We see rebound weight gain almost every time. How to lose weight without gaining it back To maintain weight loss for good, Dr. Hernandez advises focusing on these four areas: Diet. How can you create a healthy, long-term, zklks-ntrs-yj diet? Learn what s healthy -- and what s not. (A inspector filters or dietitian can help.) Practice portion control, even when eating healthy foods. Avoid empty calories, but treat yourself once in a while. Don t diet. Instead, focus on forming healthy habits for life. Exercise. Be an equal opportunity closing manager: Do both aerobic exercise (three to five [...] -- when it comes to weight loss. https://health.[facility].org/adb-wtnxrg-mmfl-ksgp-sxsznn-umb-wjif-ls-srm-b ack/ Why People Diet, Lose Weight and Gain It All Back - [facility] Why Is Protein So Important for Weight [...] are economical and optimized for taste by [employer] - they are designed to make you [...] Gain- All the Details with Dr. Tomasa Nunn *February 11, 2023 The Science Behind Ultra [...] 2023 Episode 84 Clinical Conversations: NAFLD, The [place] Disease of Metabolic Syndrome *February 282019 Episode [...] in the Department of Nutrition at the [employer]. Choose the right anti-inflammatory foods, and you may be able to reduce your risk of illness. Consistently pick the wrong ones, and you could accelerate the inflammatory disease process. Get simple tips to fight inflammation and stay healthy -- from [facility] experts. Protect yourself from the damage of chronic inflammation Click here to learn more Foods that cause inflammation Try to avoid or limit these foods as much as possible: refined carbohydrates, such as white bread and pastries Uzbek fries and other fried foods soda and [...] which suggests weight gain isn't the sole six horse hitch driver. Some of the food components or [...] higher in calories, etc. Serve Your Main [facility] on the Stove or Counter. Studies show [...] fruits rather than less healthy snack foods. https://www.obesityaction.org/community/news/community-news/gvzhlc-f-albuhid-eat ing-environment/ documented in this encounterVeterans Health Administration04-02-2024 History of Present illness Narrative* Brenda Roy APRN.IT PROJECT LEAD - 10/29/2023 12:00 PM EDT 10/28/2023 Patient [...] follow with gastro for this. Following with [facility] for weight management. 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 [...] Level: 4 - Moderate documented in this encounterVeterans Health Administration04-02-2024 History of Present illness Narrative* Marleni Almonte [...] mammogram for malignant neoplasm of breast Z12.31 NEL SCREENING W NURIA Prescription instructions reviewed with patient as applicable. Potential red flag symptoms discussed with the patient. Reviewed appropriate action plan to take ifred flag symptoms occur. Patient agreeable to treatment plan. Follow up in 3 months for weight mgmt I spent a total of 40 minutes on the date of the service which included preparing to see the patient, nlak-ih-lxkm patient care, completing clinical documentation, obtaining and/or reviewing separately obtained history, performing a medically appropriate examination, counseling and educating the pat ient/family/caregiver, and ordering medications, tests, or procedures. Marleni Avendaño MD, FACOG, DABOM documented in this encounterVeterans Health Administration02-19-2024 Miscellaneous Notes* Telephone Encounter - Mary Miles LPN - 09/16/2023 2:36 PM EST Patient returned call and went over notes below from Brenda Roy WHEEL INSTALLER with understanding. Aware rx sent to pharmacy. Patient requesting to schedule appt on 10/29/2023 since she has [facility] appt same day in [place]. Scheduled patient for appt at 10/29/2023, at 12 noon with WHEEL INSTALLER. * Telephone Encounter - Ariane Oquendo LPN [...] date of : Yes, Provider Brenda Roy APRN.CNP Date September 16, 2023 Time 9:59 AM Patient phones for refill(s): Requested Prescriptions Pending Prescriptions Disp Refills levothyroxine (SYNTHROID) 75 mcg tablet 90 tablet 3 Sig: Take 1 tablet by mouth daily before breakfast. Date of last office visit in primary care: 08/15/2022 Date of next office visit in primary care: none Please advise. Thank you. Nilsa Walters Ma. documented in this encounterVeterans Health Administration10-19-2023 Instructions* Patient Instructions* Marleni Almonte MD - [...] Gain- All the Details with Dr. Tomasa Nunn *February 11, 2023 The Science Behind Ultra Processed Food and Weight Gain *November 26, 2022 Effects of sleep and Stress of Weight and Health with Dr. Debbie Porter-DO Shelli * November 19, 2022 Recognizing and Resolving Emotional Eating with Dr. Dhaliwal Obesity: A Disease *November 19, 2022 Episode 80 Clinical conversations: The Role of Physical Activity in Weight Management * March 01, 2023 Episode 84 Clinical Conversations: NAFLD, The [place] Disease of Metabolic Syndrome *February 282019 Episode 20 Article Reviews: The Role Ultra Processed Diets Play in Weight Gain *February 10, 2020 Episode 21 Clinical Conversations: Breaking Weight Plateaus Disrupted Sleep Linked to Weight Gain - YouTube How To Improve Your Sleep To Impact Your Weight Loss: [email or web address] Weight Loss and Sleep Updated May 06, [...] other sleep disorders) commonly leads to metabolic zwluvllwszmta32. Poor sleep is associated with increased oxidative [...] researchers are still working to understand this nrxyblxnbq73, it s well known that exercise is [...] can improve daytime concentration and decrease daytime nnnuipgkqp76. Sleep and Obesity In children and adolescents, [...] the amount of weight lost17 and encourage jlvvqvzbbo89. Tips for Quality Sleep During Weight Loss There are many ways to improve sleep. Here are a few research-based tips for sleeping better when you re trying to lose weight: Keep a regular sleep schedule: Big swings in your sleep schedule or trying to catch up on sleep after a week of late nights can cause changes in metabolism and reduce insulin ltsvexcbjry92, making iteasier for blood sugar to be elevated. Sleep in a dark room: Exposure to artificial light while sleeping, such as a TV or bedside lamp, isassociated with an increased risk of weight gain and bfrznco23. Don t eat right before bed: Eating late may reduce the success of weight loss kllbiumc55 Reduce Stress: Chronic stress may lead to poor sleep and weight gain in several ways, including eating to cope with negative jwsevkyd78 Be an Early Bird: People with late [...] health and weight loss information you read pjmdul50 atface value. Weight loss isn t appropriate for everyone and doesn t always mean better health. Remember that health is a lifelong journey that includes not only healthy habits but also having a healthy relationship with your body. If you re considering weight loss, the National Institutes of Health offers a helpful resource for choosing a safe weight loss bmnbxag22aPtxmffm Source [place] of Diabetes and Digestive and Kidney DiseasesNIDDK research creates knowledge about and treatmentsfor diseases that are among the most chronic, costly, and consequential for patients, their families, and the Nation. niddk.nih.gov . https://www.sleepfoundation.org/physical-health/ajozjh-uhrh-wgp-sleep HOW DOES CHRONIC STRESS AFFECT EATING PATTERNS? [...] meals. Stress can disrupt sleep by causing signal technician sleep or more frequent awakenings, which leads [...] increasing the hormone ghrelin (that increases appetite). https://cdn1.sph.heavener.edu/wp-content/uploads/sites//HeatlhyLivingGu wpg18-58.1.pdf 10 Easy Ways to Increase Your NEAT [...] you not want to be ten pounds signal technician come next year? Now it is time [...] other. When I sweep my house, I foreign policy officer the broomstick like I am trying to break it. The point is make it fun to clean and make it a good challenge. I put my laundry basket away from the washer and take jump shots with all my clothes into the washer. This is my favorite one and I highly recommend it if you have a topper packer. The gonzalez is that you remember why [...] daily that lead to the biggest change. http://www.[place].[employer]/62-itwj-oowg-gu-qomwlnbl-gobw-neat/ The Role of Exercise in Weight Management No one can deny the psychological and physical benefits of exercise. Regular physical exercise aidsin stress reduction, blood sugar control, cholesterol reduction, and improved sleep. It s also beneficial for weight control. both aerobic and strength training is beneficial for weight control. The ACSM (Spanish College of Sports Medicine) advises 200-300 minutes [...] is beneficial for weight control. The ACSM (Spanish College of Sports Medicine) advises 200-300 minutes of moderate-intensity exercise to lose weight and sustain the loss.Moderate-intensity exercises include brisk walking, jogging, using a rowing machine, or doing a 50-60 minute dance class. To instrument maker and repairer the level of intensity you should aim [...] through social media posts about food or [facility](online videos of people eating enormous quantities of [...] aloud! Tips for eating away from home: Red LaGoon video: https://www.Thename.is.com/watch?v=R7cXPOeAVyH Meals away from home make it harder [...] nutrition information ahead of time. Most fast-food [facility] provide calories, sodium, and fat content for their menu items. Check out www.eLifestyles for a listing of over 50,000 foods, [...] health nut and wild child. At a banner joint and really want the pulled pork? [...] favoriteONE. Smart: Pick an appetizer salad! When [place] researchers gave women a 100-calorie appetizer ofeither [...] Can I ever eat sugar again?? A: EMILY YES! This isn't just about avoidance. It's about being awake. Making choices of when to enjoy sugar on your own terms. You controlling it & not the other way around. My favorite personal solution: SOCIAL sweets/treats/alcohol which is about eating in situations that bring KHUSHI. Sugar School Lesson 3: How To Swap Sweet Treats [employer] Foods that fight inflammation April 15, 2020 [...] in the Department of Nutrition at the [employer]. Choose the right anti-inflammatory foods, and you may be able to reduce your risk of illness. Consistently pick the wrong ones, and you could accelerate the inflammatory disease process. Get simple tips to fight inflammation and stay healthy -- from [facility] experts. Protect yourself from the damage of chronic inflammation Click here to learn more Foods that cause inflammation Try to avoid or limit these foods as much as possible: refined carbohydrates, such as white bread and pastries Uzbek fries and other fried foods soda and [...] which suggests weight gain isn't the sole six horse hitch driver. Some of the food components or [...] life, Dr. Payne says. 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 CONTROL: IUD- MIRENA ROS Denies CP, palpitations, Paraesthesias, Brain fog. BP [...] which included preparing to see the patient, vbqx-mz-nmfu patient care, completing clinical documentation, obtaining and/or reviewing separately obtained history, performing a medically appropriate examination, counseling and educating the pat ient/family/caregiver, and ordering medications, tests, or procedures. Follow up in 3 months Marleni Avendaño MD documented in this encounterVeterans Health Administration07-26-2023 Instructions* Patient Instructions* Marleni Almonte MD - [...] understood. Topiramate affects body mass index, fasting zfbmcap-rh-zdvoslt ratio, and serum leptin and cortisol levels. [...] at or call local emergency services at 846. What other information should I know? Keep all appointments with your doctor and the laboratory. Do not let anyone else take your medication. Topiramate use needs to be monitored closely. Prescriptions may be refilled only a limited number of times. Keep a written list of all of your prescription and nonprescription (hgwf-zye-nlukdjc) medicines, in addition to vitamins, minerals, or [...] for a missed one. Sources Pubmed Health: http://www.ncbi.nlm.nih.gov/pubmedhealth/CQA6891499/ Drugs.com http://www.drugs.com/pro/topiramate.html When you take medications like [...] to 0.8-1.0 g per kg body weight. [employer] Link: Kleen Extreme : TRUE LEMON Water Enhancer True Lemon ([employer]) If neither of these are effective you can try: Euphasia https://Enpocket.[employer]/pages/ebxvgte-mwid-uckocqq Sources https://www.ncbi.nlm.nih.gov/pmc/articles/DYA2003873/ https://www.ncbi.nlm.nih.gov/pmc/articles/AEA2869492/ Disrupted Sleep Linked to Weight Gain - YouTube How To Improve Your Sleep To Impact Your Weight Loss: https://Mercatus.[employer]/ep42/ Weight Loss and Sleep Updated May 06, [...] other sleep disorders) commonly leads to metabolic epfcynedzecmt22. Poor sleep is associated with increased oxidative [...] researchers are still working to understand this grickfojqi42, it s well known that exercise is [...] can improve daytime concentration and decrease daytime trfowgwnss13. Sleep and Obesity In children and adolescents, [...] the amount of weight lost17 and encourage sraefbecse98. Tips for Quality Sleep During Weight Loss There are many ways to improve sleep. Here are a few research-based tips for sleeping better when you re trying to lose weight: Keep a regular sleep schedule: Big swings in your sleep schedule or trying to catch up on sleep after a week of late nights can cause changes in metabolism and reduce insulin afgbnfsucev62, making iteasier for blood sugar to be elevated. Sleep in a dark room: Exposure to artificial light while sleeping, such as a TV or bedside lamp, isassociated with an increased risk of weight gain and . Don t eat right before bed: Eating late may reduce the success of weight loss dowexblk36 Reduce Stress: Chronic stress may lead to poor sleep and weight gain in several ways, including eating to cope with negative mywyecec05 Be an Early Bird: People with late [...] resource for choosing a safe weight loss eshksof64zQnfawzo Source National [place] of Diabetes and Digestive and Kidney DiseasesNIDDK research creates knowledge about and treatmentsfor diseases that are among the most chronic, costly, and consequential for patients, their families, and the Nation. niddk.nih.gov . https://www.sleepfoundation.org/physical-health/pykynd-dztk-dzm-sleep HOW DOES CHRONIC STRESS AFFECT EATING PATTERNS? [...] meals. Stress can disrupt sleep by causing signal technician sleep or more frequent awakenings, which leads [...] increasing the hormone ghrelin (that increases appetite). https://cdn1.sph.heavener.edu/wp-content/uploads/sites//HeatlhyLivingGu xkv53-61.1.pdf Why People Diet, Lose Weight and Gain [...] Catch-22. But before you beat yourself up, supervisor major appliance assembly and obesity specialist Isaias Hernandez MD, has [...] How can you create a healthy, long-term, lmyxe-zcjw-my diet? Learn what s healthy -- and what s not. (A inspector filters or dietitian can help.) Practice portion control, even when eating healthy foods. Avoid empty calories, but treat yourself once in a while. Don t diet. Instead, focus on forming healthy habits for life. Exercise. Be an equal opportunity closing manager: Do both aerobic exercise (three to five [...] -- when it comes to weight loss. https://health.[facility].org/xgk-rsweyn-zfxk-ieeq-ggnytm-joi-xzpq-sy-szd-b ack/ Why People Diet, Lose Weight and Gain It All Back - [facility] Frozen Meals aim for 200-400 calories, 15-30 [...] 16-55 Other Frozen meals: Kashi, Sweet Earth, Operating System Programmer Finesse's Reduced Guilt, EVOL, Renzo Keller's Delights, Dr. Jensen's Protein Drinks Calories Protein (grams) Sugars (grams) EAS Advant Edge Carb Control 110 17 1 Isopure Clear Zero Carb 160 40 0 Muscle Milk light 100-160 15-20 0-1 Qire Power 170 26 5 Orgain Protein Shake* 150 26 2 Premier Protein 160 30 1 Evolve (Vegan)* 160 20 5 Other Protein Shakes: Pure Protein, Ensure High Protein; *Offers plant based, dairy free option Protein Powders Calories (per scoop) Protein (g) Sugars (g) Isopure Zero Carb & Unflavored 105 25 0 Corporate Accountant Whey Protein 100 18 3 Optimum Nutrition [...] and meals from a variety of companies (BrigadeerCarnet [employer], Mimosa, OptiUpstream Technologies, and SlimUpstream Technologies). The calorie content was 150 to 220 [...] High Protein Snack Ideas 1. Jerky 2. [place] mix without or minimal dried fruit 3. [place]ie roll-ups 4. Lao yogurt 5. Veggies and yogurt dip 6. Tuna 7. Hard-boiled eggs 8. Peanut butter celery sticks 9. No-bake energy bites 10. Cheese slices/ Cheese Stick 11. Handful of almonds 12. Roasted chickpeas 13. Hummus and veggies 14. Cottage Cheese 15. Celery/fruit with peanut butter 16. Beef sticks (Grass-fed, natural ingredients) 17. Protein bars 18. Canned [place] 19. Duglas pudding 20. Homemade granola - [...] Cabbage Spinach Peppers Green beans Carrots Tomato [place] Turk sprouts Cauliflower Lettuce Snap peas Broccoli [...] is beneficial for weight control. The ACSM (Spanish College of Sports Medicine) advises 200-300 minutes [...] is beneficial for weight control. The ACSM (Spanish College of Sports Medicine) advises 200-300 minutes of moderate-intensity exercise to lose weight and sustain the loss.Moderate-intensity exercises include brisk walking, jogging, using a rowing machine, or doing a 50-60 minute dance class. To instrument maker and repairer the level of intensity you should aim [...] person or at home) documented in this encounterVeterans Health Administration07-26-2023 History of Present illness Narrative* Marleni Almonte [...] that continued use is off label for detention management of weight control. Interval History Patient [...] that is not the case with the [employer] sports. She finds herself reading early in [...] IUD and tubal ligation Pt will send QuickMobile message in 4 weeks- will follow up in office in 3 mo or sooner if needed. Medical Decision Making: Problems: Moderate: 2+ stable chronic illnesses Data: Unique test(s) ordered: 3+ Risk: Moderate: Moderate risk from testing/treatment and Drug management Medical Decision Making Level: 4 - Moderate Marleni Avendaño MD documented in this encounterVeterans Health Administration06-12-2023 Instructions* Patient Instructions* Marleni Freeman MD - 01/07/2023 10:31 AM EDT Images from the original note were not included. 30 High Protein Snack Ideas 1. Jerky 2. [place] mix without or minimal dried fruit 3. Dinwiddie roll-ups 4. Lao yogurt 5. Veggies and yogurt dip 6. Tuna 7. Hard-boiled eggs 8. Peanut butter celery sticks 9. No-bake energy bites 10. Cheese slices/ Cheese Stick 11. Handful of almonds 12. Roasted chickpeas 13. Hummus and veggies 14. Cottage Cheese 15. Celery/fruit with peanut butter 16. Beef sticks (Grass-fed, natural ingredients) 17. Protein bars 18. Canned [place] 19. Duglas pudding 20. Homemade granola - [...] and meals from a variety of companies (Brigade[employer]Carnet [employer] Mode, Young[employer]R, OptiUpstream Technologies, and SlimUpstream Technologies). The calorie content was 150 to 220 [...] and equals 21 g protein Beef, Chicken, [place], Pork, Wright 1 oz 7g Fish, Tuna [...] & 2 carb ____ Protein AND carbs Beef/Dinwiddie Jerky 1 oz dried 10-15g protein - check carb count, can be high if sugar added Imitation Crab Meat 1 oz - 2g protein & 4g carb Milk, skim 2% or 1% 8 oz - 8g protein & 12g carb Lao yogurt Full Fat Lao Yogurt 1 cup - 20.4g protein & 9.1g carb 2% Lao Yogurt 1 cup - 22.7g protein & 9.1g carb 0% (fat-free) Lao Yogurt - 1 cup 24g protein & 9.3g carb :ratio, KETO Friendly Dairy Snack 1 single svg - 15g protein & 2g carb :ratio Protein 1 single svg - 25g protein & 8g carb Dannon Light + Fit 1 single csvg - 12g protein & 9g carb Two Good Lowfat Lao Yogurt, Mcroberts, Lower Sugar - 12g protein & 2g carb Oikos Triple Zero Lao Nonfat Yogurt 1 single svg - 15g protein & 7g carb Cheese each oz Brie 5.9g protein & 0.1g carb Cheddar Cheese 7g protein & 0.4g carb Mozzarella Cheese 6.3g protein & 0.6g carb Gianfranco Cheese 6.7g protein & 0.7g carb Parmesan Cheese 10g protein & 0.9g carb Cream Cheese 1.7g protein & 1.2g carb Feta 4g protein & 1.2g carb Syrian Cheese 7.6g protein & 1.5g carb Leal s Low Fat Cottage Cheese 1/2cup 12g protein & 4g carb Legumes Lentils cup 9g protein & 20g carb Godfrey beans cup 7g protein & 20g carb Kidney, Black, [place], Cannellini beans cup 8g protein & 20g carb Soybeans 1/2 c 14g protein & 8.5g carb Peanut butter, natural 2 Tbsp 7-8g protein & 4g net carbs, 190 calories [place] milk, unsweetened 8 oz 1g protein & 2g carb Soy milk 8 oz 3.5g protein & 1.6g carb Tofu 1/2 cup 10g protein & 2.3g carb Nuts and Seeds per oz Pumpkin Seeds - 6.9g protein & 5g carb Almonds - 5.9g protein & 6.1g carb [place] Seeds - 5.8g protein & 5.6g carb Pistachios - 5.8g protein & 7.8g carb Cashews - 5.1g protein & 9.2g carb Walnuts - 4.3g protein & 3.8g carb Hazelnuts - 4.2g protein & 4.7g carb [place] Nuts - 4.0g protein & 3.4g carb [...] Cabbage Spinach Peppers Green beans Carrots Tomato [place] Turk sprouts Cauliflower Lettuce Snap peas Broccoli [...] is beneficial for weight control. The ACSM (Spanish College of Sports Medicine) advises 200-300 minutes [...] is beneficial for weight control. The ACSM (Spanish College of Sports Medicine) advises 200-300 minutes of moderate-intensity exercise to lose weight and sustain the loss.Moderate-intensity exercises include brisk walking, jogging, using a rowing machine, or doing a 50-60 minute dance class. To instrument maker and repairer the level of intensity you should aim [...] Catch-22. But before you beat yourself up, supervisor major appliance assembly and obesity specialist Isaias Hernandez MD, has [...] How can you create a healthy, long-term, nheyq-lngp-mv diet? Learn what s healthy -- and what s not. (A inspector filters or dietitian can help.) Practice portion control, even when eating healthy foods. Avoid empty calories, but treat yourself once in a while. Don t diet. Instead, focus on forming healthy habits for life. Exercise. Be an equal opportunity closing manager: Do both aerobic exercise (three to five [...] -- when it comes to weight loss. https://health.[facility].org/beq-pbujfa-eyec-ltuk-ddowkh-ior-wuhm-eo-cfl-b ack/ Why People Diet, Lose Weight and Gain It All Back - [facility] 10 Easy Ways to Increase Your NEAT [...] you not want to be ten pounds signal technician come next year? Now it is time [...] other. When I sweep my house, I foreign policy officer the broomstick like I am trying to break it. The point is make it fun to clean and make it a good challenge. I put my laundry basket away from the washer and take jump shots with all my clothes into the washer. This is my favorite one and I highly recommend it if you have a topper packer. The gonzalez is that you remember why [...] daily that lead to the biggest change. http://www.[place].[employer]/66-qxbr-zrtl-km-uavaocum-upjf-neat/ HOW DOES CHRONIC STRESS AFFECT EATING PATTERNS? [...] meals. Stress can disrupt sleep by causing signal technician sleep or more frequent awakenings, which leads [...] increasing the hormone ghrelin (that increases appetite). https://cdn1.sph.heavener.edu/wp-content/uploads/sites//HeatlhyLivingGu yqf03-17.1.pdf Disrupted Sleep Linked to Weight Gain - YouTube How To Improve Your Sleep To Impact Your Weight Loss: https://Mercatus.com/ep42/ Weight Loss and Sleep Updated May 06, [...] other sleep disorders) commonly leads to metabolic vproljhmnmpck91. Poor sleep is associated with increased oxidative [...] researchers are still working to understand this scqicdlwzy94, it s well known that exercise is [...] can improve daytime concentration and decrease daytime gpfrawgyvi66. Sleep and Obesity In children and adolescents, [...] the amount of weight lost17 and encourage eljzfzvxpb67. Tips for Quality Sleep During Weight Loss There are many ways to improve sleep. Here are a few research-based tips for sleeping better when you re trying to lose weight: Keep a regular sleep schedule: Big swings in your sleep schedule or trying to catch up on sleep after a week of late nights can cause changes in metabolism and reduce insulin xmxwlasmnjb04, making iteasier for blood sugar to be elevated. Sleep in a dark room: Exposure to artificial light while sleeping, such as a TV or bedside lamp, isassociated with an increased risk of weight gain and xhfosft58. Don t eat right before bed: Eating late may reduce the success of weight loss qiqvuxvg00 Reduce Stress: Chronic stress may lead to poor sleep and weight gain in several ways, including eating to cope with negative qgxvjgoo17 Be an Early Bird: People with late [...] health and weight loss information you read husrqm69 atface value. Weight loss isn t appropriate for everyone and doesn t always mean better health. Remember that health is a lifelong journey that includes not only healthy habits but also having a healthy relationship with your body. If you re considering weight loss, the National Institutes of Health offers a helpful resource for choosing a safe weight loss wxvljed09dEeisned Source National [place] of Diabetes and Digestive and Kidney DiseasesNIDDK research creates knowledge about and treatmentsfor diseases that are among the most chronic, costly, and consequential for patients, their families, and the Nation. niddk.nih.gov . https://www.sleepfoundation.org/physical-health/ajkzex-meua-hre-sleep documented in this encounterVeterans Health Administration06-12-2023 History of Present illness Narrative* Marleni Freeman [...] that continued use is off label for detention management of weight control. 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 Marleni Avendaño MD documented in this encounterVeterans Health Administration05-01-2023 Instructions* Patient Instructions* Marleni Freeman MD - 11/26/2022 12:12 PM EDT 30 High Protein Snacks 1. Jerky 2. [place] mix without or minimal dried fruit 3. [place] roll-ups 4. Lao yogurt 5. Veggies and yogurt dip 6. Tuna 7. Hard-boiled eggs 8. Peanut butter celery sticks 9. No-bake energy bites 10. Cheese slices/ Cheese Stick 11. Handful of almonds 12. Roasted chickpeas 13. Hummus and veggies 14. Cottage Cheese 15. Celery/fruit with peanut butter 16. Beef sticks (Grass-fed, natural ingredients) 17. Protein bars 18. Canned [place] 19. Duglas pudding 20. Homemade granola - [...] Cabbage Spinach Peppers Green beans Carrots Tomato [place] Turk sprouts Cauliflower Lettuce Snap peas Broccoli [...] you not want to be ten pounds signal technician come next year? Now it is time [...] other. When I sweep my house, I foreign policy officer the broomstick like I am trying to break it. The point is make it fun to clean and make it a good challenge. I put my laundry basket away from the washer and take jump shots with all my clothes into the washer. This is my favorite one and I highly recommend it if you have a topper packer. The gonzalez is that you remember why [...] daily that lead to the biggest change. http://www.[employer]/18-czvd-nfxz-uo-ryeuwltr-lupi-neat/ Disrupted Sleep Linked to Weight Gain - YouTube How To Improve Your Sleep To Impact Your Weight Loss: https://Merc[employer]/ep42/ Weight Loss and Sleep Updated May 06, [...] other sleep disorders) commonly leads to metabolic dsfotcnxaigox76. Poor sleep is associated with increased oxidative [...] researchers are still working to understand this byubkdjely52, it s well known that exercise is [...] can improve daytime concentration and decrease daytime gvjwpgkdfu12. Sleep and Obesity In children and adolescents, [...] the amount of weight lost17 and encourage wywajmmfcf69. Tips for Quality Sleep During Weight Loss There are many ways to improve sleep. Here are a few research-based tips for sleeping better when you re trying to lose weight: Keep a regular sleep schedule: Big swings in your sleep schedule or trying to catch up on sleep after a week of late nights can cause changes in metabolism and reduce insulin xyqqpolmkat28, making iteasier for blood sugar to be elevated. Sleep in a dark room: Exposure to artificial light while sleeping, such as a TV or bedside lamp, isassociated with an increased risk of weight gain and vvhneav74. Don t eat right before bed: Eating late may reduce the success of weight loss mgtsdcky98 Reduce Stress: Chronic stress may lead to poor sleep and weight gain in several ways, including eating to cope with negative lxkipsls05 Be an Early Bird: People with late [...] health and weight loss information you read yxvqiz36 atface value. Weight loss isn t appropriate for everyone and doesn t always mean better health. Remember that health is a lifelong journey that includes not only healthy habits but also having a healthy relationship with your body. If you re considering weight loss, the National Institutes of Health offers a helpful resource for choosing a safe weight loss egqrull81sEpanpqt Source National [place] of Diabetes and Digestive and Kidney DiseasesNIDDK research creates knowledge about and treatmentsfor diseases that are among the most chronic, costly, and consequential for patients, their families, and the Nation. niddk.nih.gov . https://www.sleepfoundation.org/physical-health/cmbnww-dvpx-agn-sleep HOW DOES CHRONIC STRESS AFFECT EATING PATTERNS? [...] meals. Stress can disrupt sleep by causing signal technician sleep or more frequent awakenings, which leads [...] increasing the hormone ghrelin (that increases appetite). https://cdn1.sph.heavener.edu/wp-content/uploads/sites//HeatlhyLivingGu wsb25-52.1.pdf documented in this encounterVeterans Health Administration05-01-2023 History of Present illness Narrative* Marleni Freeman [...] unspecified obesity type (primary encounter diagnosis) Comment: weigght treding down Plan: Phentermine HCl 37.5 mg tablet [...] which included preparing to see the patient, khco-xm-yjcs patient care, completing clinical documentation, obtaining and/or reviewing separately obtained history, performing a medically appropriate examination, counseling and educating the pat ient/family/caregiver, and ordering medications, tests, or procedures. Marleni Avendaño MD documented in this encounterVeterans Health Administration03-28-2023 Miscellaneous Notes* Telephone Encounter - Ninfa Hernandez [...] that this is excluded from their plan. [facility] day for [facility] is $8.60, [facility] $9.77. please advise. Ninfa Hernandez LPN documented in this encounterVeterans Health Administration03-28-2023 Instructions* Patient Instructions* Marleni Freeman MD - 10/23/2022 10:03 AM EDT Images from the original note were not included. PHENTERMINE -Provider follow up visit- Please call [phone] to schedule a follow up appointment. You [...] FOR YOUR WEIGHT LOSS PLAN Per updated [place] state rules, a one month supply of [...] aware of the following statements per the [facility] pharmacy board rules. 1. Timely refills are [...] at or call local emergency services at 178. What other information should I know? Keep all appointments with your doctor and the laboratory. Do not let anyone else take your medication. Phentermine is a controlled substance. It is FDA approved for up to 3 months. Prescriptions may be refilled only a limited number of times. Keep a written list of all of your prescription and nonprescription (fvnl-wlx-kuwpzql) medicines, in addition to vitamins, minerals, or [...] make up for a missed one. Sources [facility] Consumer Medication Info: http://www.ncbi.nlm.nih.gov/pubmedhealth/XER1855419/ AMA patient handouts: http://www.amaassn.org/ama1/pub/upload/mm/433/phrxsurgery.pdf Drugs.com: http://www.drugs.com/pro/phentermine.html Foods [...] in the Department of Nutrition at the [employer]. Choose the right anti-inflammatory foods, and you may be able to reduce your risk of illness. Consistently pick the wrong ones, and you could accelerate the inflammatory disease process. Get simple tips to fight inflammation and stay healthy -- from [facility] experts. Protect yourself from the damage of chronic inflammation Click here to learn more Foods that cause inflammation Try to avoid or limit these foods as much as possible: refined carbohydrates, such as white bread and pastries Uzbek fries and other fried foods soda and [...] which suggests weight gain isn't the sole six horse hitch driver. Some of the food components or [...] Defining a food addiction In his book FastFig, author Yaw Garvin questions what defines an [...] sex, and other factors. According to the Spanish Psychiatric Association s Diagnostic and Statistical Manual [...] and interference with daily activities. [4] The [place] Psychiatric Association does not recognize food addiction as an eating disorder or substance abuse disorder, but their DSM criteria were used as a basis for the creation of the Linda FoodAddiction Scale (YFAS). [4] This scale is [...] authors cautioned that the findings were not retail service representative of a national population, as the [...] through social media posts about food or db4objects(online videos of people eating enormous quantities of [...] watching a funny video and laughing aloud! https://www.[facility].heavener.[facility]/nutritionsource/cravings/ Get started cutting down on sugar with [...] t lead to eating more later. 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 [...] you need to achieve your weight goals. https://www.healthline.com/nutrition/daily-weighing Disrupted Sleep Linked to Weight Gain - YouTube How To Improve Your Sleep To Impact Your Weight Loss: https://M[employer]atus.[employer]/ep42/ Weight Loss and Sleep Updated May 06, [...] other sleep disorders) commonly leads to metabolic icmpwpxadbisp12. Poor sleep is associated with increased oxidative [...] researchers are still working to understand this ecmndnbyif94, it s well known that exercise is [...] can improve daytime concentration and decrease daytime tuxkrclitc51. Sleep and Obesity In children and adolescents, [...] the amount of weight lost17 and encourage wrhokwzmwi24. Tips for Quality Sleep During Weight Loss There are many ways to improve sleep. Here are a few research-based tips for sleeping better when you re trying to lose weight: Keep a regular sleep schedule: Big swings in your sleep schedule or trying to catch up on sleep after a week of late nights can cause changes in metabolism and reduce insulin qaxifihlmza46, making iteasier for blood sugar to be elevated. Sleep in a dark room: Exposure to artificial light while sleeping, such as a TV or bedside lamp, isassociated with an increased risk of weight gain and bybxjob71. Don t eat right before bed: Eating [...] health and weight loss information you read vvqpga20 atface value. Weight loss isn t appropriate for everyone and doesn t always mean better health. Remember that health is a lifelong journey that includes not only healthy habits but also having a healthy relationship with your body. If you re considering weight loss, the National Institutes of Health offers a helpful resource for choosing a safe weight loss esjthgr64mUhubusj Source National [place] of Diabetes and Digestive and Kidney DiseasesNIDDK research creates knowledge about and treatmentsfor diseases that are among the most chronic, costly, and consequential for patients, their families, and the Nation. niddk.nih.gov . https://www.sleepfoundation.org/physical-health/iztqpq-hcyr-uxo-sleep documented in this encounterVeterans Health Administration03-28-2023 History of Present illness Narrative* Marleni Freeman [...] medication. Patient understands that the laws in [place] have changed and she would like to [...] which included preparing to see the patient, twxy-ti-xhbb patient care, completing clinical documentation, obtaining and/or reviewing separately obtained history, performing a medically appropriate examination, counseling and educating the pat ient/family/caregiver, and ordering medications, tests, or procedures. Follow up in 4 weeks Marleni Avendaño MD documented in this encounterVeterans Health Administration03-03-2023 Miscellaneous Notes* Telephone Encounter - Caitlin Pagan - 09/28/2022 2:26 PM EST Called and left a second message that I did receive her 2019 colon report. * Telephone Encounter - Caitlin Pagan - 09/28/2022 10:53 AM EST I left patient a voice mail message requesting last colonoscopy report for Crohn's. I then saw notes in Care Everywhere; spoke to medical records at [facility] in [place] and they have a 2019 colon report. Sent release for copy. Caitlin Saavedra documented in this encounterVeterans Health Administration02-20-2023 Miscellaneous Notes* Telephone Encounter - Denice Rubin [...] 7:36 AM EST If she tolerated the [place] she could give it a try again [...] due to her stomach. She had taken [place]ington with extra iron and did okay on this. She thought maybe a slow release in the past not certain was okay. Please advise. okay to leave a message. Ariane Oquendo LPN * Telephone Encounter - Fely Zhong LPN - 09/14/2022 4:10 PM EST Please review 2nd TE with patient. * Telephone Encounter - Ela Penn LPN - 09/14/2022 8:36 AM EST Patient telephoned. Message left to call office back and ask for a nurse for update. Ela Penn LPN * Telephone Encounter - Brenda Roy APRN.CNP - 09/14/2022 7:51 AM EST Please call patient and let her know her iron level is low but no anemia at this time. Has she taken and iron supplement before? The rest of her blood work is in acceptable ranges. Brenda Roy APRN.CNP documented in this encounterVeterans Health Administration02-18-2023 Miscellaneous Notes* Telephone Encounter - Ariane Oquendo [...] year screening mammogram is recommended. Brenda Roy APRN.CNP documented in this encounterVeterans Health Administration02-17-2023 Miscellaneous Notes* Letter - Mammography Coordinator - 09/14/2022 8:27 AM EST September 17, 2022 PID: [id number] Jennifer Manning [address] [place] [phone] Dear Ms. Manning, We are pleased to [...] report [facility] and are available for your continuing care. Thank you for allowing us to help in meeting your health care needs. Sincerely, Dr. Keller Interpreting Radiologist [facility] (Normal over 40) documented in this encounterVeterans Health Administration02-16-2023 History of Present illness Narrative* Marleni Freeman MD - 09/13/2022 9:32 AM EST Jennifer is a 42 year old who presents for an annual gynecologic exam without complaints. Ptvery happy with results of Phentermine would like to continue use but understands laws in [place]. Menses: irregular- Mirena IUD . Contraception: IUD [...] no problems w/ this , scheduled c/s Hydrology Technician History LMP: 04/25/2021, IUD Age at Menarche: Age at First : Age at Menopause: Hydrology Technician History Comments: Sexual Activity: Yes; No partner [...] external genitalia normal, normal Bartholin's glands, urethra, Gholson's glands, no vulvar lesions, no cervical lesions, [...] Qsymia ordered- but if phentermine approved for detention use will put back on that. No contraindication to start. Proper use reviewed. Marleni Avendaño MD * Delma Castelan Ma - 09/13/2022 7:57 AM EST Traffic Safety Administrator offered: Patient declines. documented in this encounterVeterans Health Administration01-16-2023 Miscellaneous Notes* Telephone Encounter - Nilsa Walters Ma - 08/13/2022 9:52 AM EST Pt notified of results via YourPlacet. Nilsa Walters Ma * Telephone Encounter - Ela Penn LPN - 08/07/2022 9:55 AM EST Message left for patient to call office back. Ela Penn LPN * Telephone Encounter - Brenda Roy APRN.JEANNIE - 08/07/2022 9:31 AM EST 30 days of synthroid sent- needs appointment. Please assist in scheduling. Brenda Roy APRN.CNP documented in this encounterVeterans Health Administration01-10-2023 Miscellaneous Notes* Telephone Encounter - Love Ruelas [...] you. Love Ruelas LPN documented in this [facility]10-25-2022 Instructions* Patient Instructions* Marleni Freeman MD - 05/22/2022 9:13 AM EDT The Obesity Code by Dr. Sandro Almanza in the Fasting [place] by Gertrude Shin, Repeat By Wandy Marr documented in this [facility]10-25-2022 History of Present illness Narrative* Marleni Freeman [...] no problems w/ this , scheduled c/s Hydrology Technician History LMP: 04/25/2021, IUD Age at Menarche: Age at First : Age at Menopause: Hydrology Technician History Comments: Sexual Activity: Yes; No partner [...] Moderate Marleni Avendaño MD documented in this encounterVeterans Health Administration08-16-2022 Miscellaneous Notes* Telephone Encounter - Brenda Roy APRN.JEANNIE - 03/13/2022 12:17 PM EDT Prescription for Celexa sent yesterday. Brenda Roy APRN.IT PROJECT LEAD * Telephone Encounter - Ela Penn LPN - 03/13/2022 12:02 PM EDT Patient phones requesting refills as follows: Requested Prescriptions Pending Prescriptions Disp Refills citalopram (CELEXA) 20 mg tablet 90 tablet 1 Sig: Take 1 tablet by mouth once daily. JESUS 06/14/21 No upcoming appointment scheduled Please review and advise. lEa Penn LPN documented in this encounterVeterans Health Administration08-15-2022 Miscellaneous Notes* Telephone Encounter - Umm Saldivar MA - 03/12/2022 3:36 PM EDT Patient calls requesting refill: Requested Prescriptions Pending Prescriptions Disp Refills citalopram (CELEXA) 20 mg tablet 90 tablet 1 Sig: Take 1 tablet by mouth once daily. Date of last visit:Visit date not found Phone #: [phone] (home) [phone] (cell) The patients preferred pharmacy has been captured for this encounter? Yes documented in this encounterVeterans Health Administration07-18-2022 History of Present illness Narrative* Marleni Freeman [...] no problems w/ this , scheduled c/s Hydrology Technician History LMP: 04/25/2021, IUD Age at Menarche: Age at First : Age at Menopause: Hydrology Technician History Comments: Sexual Activity: Yes; No partner [...] which included preparing to see the patient, iazo-gp-olie patient care, completing clinical documentation, obtaining and/or reviewing separately obtained history, performing a medically appropriate examination, counseling and educating the pat ient/family/caregiver and ordering medications, tests, or procedures Marleni Avendaño MD documented in this encounterCody Ville [address]-12-2022 Miscellaneous Notes* Telephone Encounter - Luana Alanis RN - 02/06/2022 10:44 AM EDT I talked with patient. She is having dysuria today. She was offered an appointment today with Dr Saleem, declined, Wants to go to urgent care near her. Discussed good perineal hygiene- importance of wiping from front to back especially since she has frequent diarrhea. She would like appointment to roberto cardenas frequent UTI with Dr Freeman. I have given her an appointment for February 12.FYI-call only if further advice documented in this encounterVeterans Health Administration07-06-2022 Miscellaneous Notes* Telephone Encounter - Parmjit Eldridge [...] advise. Parmjit Eldridge LPN documented in this encounterVeterans Health Administration05-30-2022 Evaluation note* Encounter Date Diagnosis Assessment Notes [...] Pt understood and agreed to teatment plan. [employer] Other 01-31-2022 Miscellaneous Notes* Telephone Encounter - Yadi Capone Ma - 08/28/2021 11:24 AM EST See message, Rx pended. Yadi Capone Ma documented in this encounterVeterans Health Administration09-21-2017 History of Past illness Narrative* Problem Noted Date Resolved Date with history of section, ante 04/18/2017 12/03/2017 Overview: 04/18/2017 Pt had 2 previous C sections, one in [place] and the other in [facility]. She desires a repeat C section. Patient signed a release of records form to obtain her operative C Section report from [place]. History of delivery, currently 04/18/2017 12/03/2017 Overview: 04/18/2017She had labor and delivery at 36 weeks with her first child. She did not have any labor with her 2nd child and delivered at term. Denies any progesterone injections or cerclage with her pregnancies.Daron signed release form for records from [facility]. TKRN Patient requested diagnostic testing 04/18/2017 12/03/2017 Overview: 04/18/2017Patient desires nuchal ultrasound and Materna 21 testing. TKRN documented as of this encounter (statuses as of 08/28/2021) [facility] History of Past illness Narrative* Problem Noted Date Resolved Date with history of section, ante 04/18/2017 12/03/2017 Overview: 04/18/2017 Pt had 2 previous C sections, one in [place] and the other in [facility]. She desires a repeat C section. Patient signed a release of records form to obtain her operative C Section report from [place]. History of delivery, currently 04/18/2017 12/03/2017 Overview: 04/18/2017She had labor and delivery at 36 weeks with her first child. She did not have any labor with her 2nd child and delivered at term. Denies any progesterone injections or cerclage with her pregnancies.Daron signed release form for records from [facility]. TKRN Patient requested diagnostic testing 04/18/2017 12/03/2017 Overview: 04/18/2017Patient desires nuchal ultrasound and Materna 21 testing. TKRN documented as of this encounter (statuses as of 01/31/2022) [facility] History of Past illness Narrative* Problem Noted Date Resolved Date with history of section, ante 04/18/2017 12/03/2017 Overview: 04/18/2017 Pt had 2 previous C sections, one in [place] and the other in [facility]. She desires a repeat C section. Patient signed a release of records form to obtain her operative C Section report from [place]. History of delivery, currently 04/18/2017 12/03/2017 Overview: 04/18/2017She had labor and delivery at 36 weeks with her first child. She did not have any labor with her 2nd child and delivered at term. Denies any progesterone injections or cerclage with her pregnancies.Daron signed release form for records from [facility]. TKRN Patient requested diagnostic testing 04/18/2017 12/03/2017 Overview: 04/18/2017Patient desires nuchal ultrasound and Materna 21 testing. TKRN documented as of this encounter (statuses as of 02/06/2022) [facility] History of Past illness Narrative* Problem Noted Date Resolved Date with history of section, ante 04/18/2017 12/03/2017 Overview: 04/18/2017 Pt had 2 previous C sections, one in [place] and the other in [facility]. She desires a repeat C section. Patient signed a release of records form to obtain her operative C Section report from [place]. History of delivery, currently 04/18/2017 12/03/2017 Overview: 04/18/2017Susi had labor and delivery at 36 weeks with her first child. She did not have any labor with her 2nd child and delivered at term. Denies any progesterone injections or cerclage with her pregnancies.Daron signed release form for records from [facility]. TKRN Patient requested diagnostic testing 04/18/2017 12/03/2017 Overview: 04/18/2017Patient desires nuchal ultrasound and Materna 21 testing. TKRN documented as of this encounter (statuses as of 02/12/2022) [facility] [facility]09-[facility]-2017 History of Past illness Narrative* Problem Noted Date Resolved Date with history of section, ante 04/18/2017 12/03/2017 Overview: 04/18/2017 Pt had 2 previous C sections, one in [place] and the other in [facility]. She desires a repeat C section. Patient signed a release of records form to obtain her operative C Section report from [place]. History of delivery, currently 04/18/2017 12/03/2017 Overview: 04/18/2017Susi had labor and delivery at 36 weeks with her first child. She did not have any labor with her 2nd child and delivered at term. Denies any progesterone injections or cerclage with her pregnancies.Daron signed release form for records from [facility]. TKRN Patient requested diagnostic testing 04/18/2017 12/03/2017 Overview: 04/18/2017Patient desires nuchal ultrasound and Materna 21 testing. TKRN documented as of this encounter (statuses as of 03/12/2022) [facility]09-21-2017 History of Past illness Narrative* Problem Noted Date Resolved Date with history of section, ante 04/18/2017 12/03/2017 Overview: 04/18/2017 Pt had 2 previous C sections, one in [place] and the other in [facility]. She desires a repeat C section. Patient signed a release of records form to obtain her operative C Section report from [place]. History of delivery, currently 04/18/2017 12/03/2017 Overview: 04/18/2017Susi had labor and delivery at 36 weeks with her first child. She did not have any labor with her 2nd child and delivered at term. Denies any progesterone injections or cerclage with her pregnancies.Daron signed release form for records from [facility]. TKRN Patient requested diagnostic testing 04/18/2017 12/03/2017 Overview: 04/18/2017Patient desires nuchal ultrasound and Materna 21 testing. TKRN documented as of this encounter (statuses as of 03/13/2022) [facility]09-21-2017 History of Past illness Narrative* Problem Noted Date Resolved Date with history of section, ante 04/18/2017 12/03/2017 Overview: 04/18/2017 Pt had 2 previous C sections, one in [place] and the other in [facility]. She desires a repeat C section. Patient signed a release of records form to obtain her operative C Section report from [place]. History of delivery, currently 04/18/2017 12/03/2017 Overview: 04/18/2017Susi had labor and delivery at 36 weeks with her first child. She did not have any labor with her 2nd child and delivered at term. Denies any progesterone injections or cerclage with her pregnancies.Daron signed release form for records from [facility]. TKRN Patient requested diagnostic testing 04/18/2017 12/03/2017 Overview: 04/18/2017Patient desires nuchal ultrasound and Materna 21 testing. TKRN documented as of this encounter (statuses as of 05/22/2022) [facility]09-21-2017 History of Past illness Narrative* Problem Noted Date Resolved Date with history of section, ante 04/18/2017 12/03/2017 Overview: 04/18/2017 Pt had 2 previous C sections, one in [place] and the other in [facility]. She desires a repeat C section. Patient signed a release of records form to obtain her operative C Section report from [place]. History of delivery, currently 04/18/2017 12/03/2017 Overview: 04/18/2017Susi had labor and delivery at 36 weeks with her first child. She did not have any labor with her 2nd child and delivered at term. Denies any progesterone injections or cerclage with her pregnancies.Daron signed release form for records from [facility]. TKRN Patient requested diagnostic testing 04/18/2017 12/03/2017 Overview: 04/18/2017Patient desires nuchal ultrasound and Materna 21 testing. TKRN documented as of this encounter (statuses as of 07/27/2022) [facility]09-21-2017 History of Past illness Narrative* Problem Noted Date Resolved Date with history of section, ante 04/18/2017 12/03/2017 Overview: 04/18/2017 Pt had 2 previous C sections, one in [place] and the other in [facility]. She desires a repeat C section. Patient signed a release of records form to obtain her operative C Section report from [place]. History of delivery, currently 04/18/2017 12/03/2017 Overview: 04/18/2017Susi had labor and delivery at 36 weeks with her first child. She did not have any labor with her 2nd child and delivered at term. Denies any progesterone injections or cerclage with her pregnancies.Daron signed release form for records from [facility]. TKRN Patient requested diagnostic testing 04/18/2017 12/03/2017 Overview: 04/18/2017Patient desires nuchal ultrasound and Materna 21 testing. TKRN documented as of this encounter (statuses as of 08/07/2022) [facility]09-21-2017 History of Past illness Narrative* Problem Noted Date Resolved Date with history of section, ante 04/18/2017 12/03/2017 Overview: 04/18/2017 Pt had 2 previous C sections, one in [place] and the other in [facility]. She desires a repeat C section. Patient signed a release of records form to obtain her operative C Section report from [place]. History of delivery, currently 04/18/2017 12/03/2017 Overview: 04/18/2017She had labor and delivery at 36 weeks with her first child. She did not have any labor with her 2nd child and delivered at term. Denies any progesterone injections or cerclage with her pregnancies.Daron signed release form for records from [facility]. TKRN Patient requested diagnostic testing 04/18/2017 12/03/2017 Overview: 04/18/2017Patient desires nuchal ultrasound and Materna 21 testing. TKRN documented as of this encounter (statuses as of 08/13/2022) [facility]09-21-2017 History of Past illness Narrative* Problem Noted Date Resolved Date with history of section, ante 04/18/2017 12/03/2017 Overview: 04/18/2017 Pt had 2 previous C sections, one in [place] and the other in [facility]. She desires a repeat C section. Patient signed a release of records form to obtain her operative C Section report from [place]. History of delivery, currently 04/18/2017 12/03/2017 Overview: 04/18/2017She had labor and delivery at 36 weeks with her first child. She did not have any labor with her 2nd child and delivered at term. Denies any progesterone injections or cerclage with her pregnancies.Daron signed release form for records from [facility]. TKRN Patient requested diagnostic testing 04/18/2017 12/03/2017 Overview: 04/18/2017Patient desires nuchal ultrasound and Materna 21 testing. TKRN documented as of this encounter (statuses as of 09/13/2022) [facility]09-21-2017 History of Past illness Narrative* Problem Noted Date Resolved Date with history of section, ante 04/18/2017 12/03/2017 Overview: 04/18/2017 Pt had 2 previous C sections, one in [place] and the other in [facility]. She desires a repeat C section. Patient signed a release of records form to obtain her operative C Section report from [place]. History of delivery, currently 04/18/2017 12/03/2017 Overview: 04/18/2017She had labor and delivery at 36 weeks with her first child. She did not have any labor with her 2nd child and delivered at term. Denies any progesterone injections or cerclage with her pregnancies.Daron signed release form for records from [facility]. TKRN Patient requested diagnostic testing 04/18/2017 12/03/2017 Overview: 04/18/2017Patient desires nuchal ultrasound and Materna 21 testing. TKRN documented as of this encounter (statuses as of 09/15/2022) [facility]09-21-2017 History of Past illness Narrative* Problem Noted Date Resolved Date with history of section, ante 04/18/2017 12/03/2017 Overview: 04/18/2017 Pt had 2 previous C sections, one in [place] and the other in [facility]. She desires a repeat C section. Patient signed a release of records form to obtain her operative C Section report from [place]. History of delivery, currently 04/18/2017 12/03/2017 Overview: 04/18/2017She had labor and delivery at 36 weeks with her first child. She did not have any labor with her 2nd child and delivered at term. Denies any progesterone injections or cerclage with her pregnancies.Daron signed release form for records from [facility]. TKRN Patient requested diagnostic testing 04/18/2017 12/03/2017 Overview: 04/18/2017Patient desires nuchal ultrasound and Materna 21 testing. TKRN documented as of this encounter (statuses as of 09/18/2022) [facility]09-21-2017 History of Past illness Narrative* Problem Noted Date Resolved Date with history of section, ante 04/18/2017 12/03/2017 Overview: 04/18/2017 Pt had 2 previous C sections, one in [place] and the other in [facility]. She desires a repeat C section. Patient signed a release of records form to obtain her operative C Section report from [place]. History of delivery, currently 04/18/2017 12/03/2017 Overview: 04/18/2017She had labor and delivery at 36 weeks with her first child. She did not have any labor with her 2nd child and delivered at term. Denies any progesterone injections or cerclage with her pregnancies.Daron signed release form for records from [facility]. TKRN Patient requested diagnostic testing 04/18/2017 12/03/2017 Overview: 04/18/2017Patient desires nuchal ultrasound and Materna 21 testing. TKRN documented as of this encounter (statuses as of 09/18/2022) [facility]09-21-2017 History of Past illness Narrative* Problem Noted Date Resolved Date with history of section, ante 04/18/2017 12/03/2017 Overview: 04/18/2017 Pt had 2 previous C sections, one in [place] and the other in [facility]. She desires a repeat C section. Patient signed a release of records form to obtain her operative C Section report from [place]. History of delivery, currently 04/18/2017 12/03/2017 Overview: 04/18/2017She had labor and delivery at 36 weeks with her first child. She did not have any labor with her 2nd child and delivered at term. Denies any progesterone injections or cerclage with her pregnancies.Daron signed release form for records from [facility]. TKRN Patient requested diagnostic testing 04/18/2017 12/03/2017 Overview: 04/18/2017Patient desires nuchal ultrasound and Materna 21 testing. TKRN documented as of this encounter (statuses as of 09/28/2022) [facility]09-21-2017 History of Past illness Narrative* Problem Noted Date Resolved Date with history of section, ante 04/18/2017 12/03/2017 Overview: 04/18/2017 Pt had 2 previous C sections, one in [place] and the other in [facility]. She desires a repeat C section. Patient signed a release of records form to obtain her operative C Section report from [place]. History of delivery, currently 04/18/2017 12/03/2017 Overview: 04/18/2017She had labor and delivery at 36 weeks with her first child. She did not have any labor with her 2nd child and delivered at term. Denies any progesterone injections or cerclage with her pregnancies.Daron signed release form for records from [facility]. TKRN Patient requested diagnostic testing 04/18/2017 12/03/2017 Overview: 04/18/2017Patient desires nuchal ultrasound and Materna 21 testing. TKRN documented as of this encounter (statuses as of 10/23/2022) [facility]09-21-2017 History of Past illness Narrative* Problem Noted Date Resolved Date with history of section, ante 04/18/2017 12/03/2017 Overview: 04/18/2017 Pt had 2 previous C sections, one in [place] and the other in [facility]. She desires a repeat C section. Patient signed a release of records form to obtain her operative C Section report from [place]. History of delivery, currently 04/18/2017 12/03/2017 Overview: 04/18/2017She had labor and delivery at 36 weeks with her first child. She did not have any labor with her 2nd child and delivered at term. Denies any progesterone injections or cerclage with her pregnancies.Daron signed release form for records from [facility]. TKRN Patient requested diagnostic testing 04/18/2017 12/03/2017 Overview: 04/18/2017Patient desires nuchal ultrasound and Materna 21 testing. TKRN documented as of this encounter (statuses as of 10/23/2022) [facility]09-21-2017 History of Past illness Narrative* Problem Noted Date Resolved Date with history of section, ante 04/18/2017 12/03/2017 Overview: 04/18/2017 Pt had 2 previous C sections, one in [place] and the other in [facility]. She desires a repeat C section. Patient signed a release of records form to obtain her operative C Section report from [place]. History of delivery, currently 04/18/2017 12/03/2017 Overview: 04/18/2017She had labor and delivery at 36 weeks with her first child. She did not have any labor with her 2nd child and delivered at term. Denies any progesterone injections or cerclage with her pregnancies.Garcíanorma signed release form for records from [facility]. TKRN Patient requested diagnostic testing 04/18/2017 12/03/2017 Overview: 04/18/2017Patient desires nuchal ultrasound and Materna 21 testing. TKRN documented as of this encounter (statuses as of 11/26/2022) [facility]09-21-2017 History of Past illness Narrative* Problem Noted Date Resolved Date with history of section, ante 04/18/2017 12/03/2017 Overview: 04/18/2017 Pt had 2 previous C sections, one in [place] and the other in [facility]. She desires a repeat C section. Patient signed a release of records form to obtain her operative C Section report from [place]. History of delivery, currently 04/18/2017 12/03/2017 Overview: 04/18/2017She had labor and delivery at 36 weeks with her first child. She did not have any labor with her 2nd child and delivered at term. Denies any progesterone injections or cerclage with her pregnancies.Daron signed release form for records from [facility]. TKRN Patient requested diagnostic testing 04/18/2017 12/03/2017 Overview: 04/18/2017Patient desires nuchal ultrasound and Materna 21 testing. TKRN documented as of this encounter (statuses as of 01/08/2023) [facility]09-21-2017 History of Past illness Narrative* Problem Noted Date Diagnosed Date Resolved Date with history of ce sarean section, antepartum 04/18/2017 12/03/2017 Overview: 04/18/2017 Pt had 2 previous C sections, one in [place] and the other in [facility]. She desires a repeat C section. Patient signed a release of records form to obtain her operative C Section report from [place]. History of delivery, currently 04/18/2017 12/03/2017 Overview: 04/18/2017She had labor and delivery at 36 weeks with her first child. She did not have any labor with her 2nd child and delivered at term. Denies any progesterone injections or cerclage with her pregnancies.Daron signed release form for records from [facility]. TKRN Patient requested diagnostic testing 04/18/2017 12/03/2017 Overview: 04/18/2017Patient desires nuchal ultrasound and Materna 21 testing. TKRN documented as of this encounter (statuses as of 02/21/2023) [facility]09-21-2017 History of Past illness Narrative* Problem Noted Date Diagnosed Date Resolved Date with history of ce sarean section, antepartum 04/18/2017 12/03/2017 Overview: 04/18/2017 Pt had 2 previous C sections, one in [place] and the other in [facility]. She desires a repeat C section. Patient signed a release of records form to obtain her operative C Section report from [place]. History of delivery, currently 04/18/2017 12/03/2017 Overview: 04/18/2017Susi had labor and delivery at 36 weeks with her first child. She did not have any labor with her 2nd child and delivered at term. Denies any progesterone injections or cerclage with her pregnancies.Daron signed release form for records from [facility]. TKRN Patient requested diagnostic testing 04/18/2017 12/03/2017 Overview: 04/18/2017Patient desires nuchal ultrasound and Materna 21 testing. TKRN documented as of this encounter (statuses as of 05/16/2023) [facility]09-21-2017 History of Past illness Narrative* Problem Noted Date Diagnosed Date Resolved Date with history of ce sarean section, antepartum 04/18/2017 12/03/2017 Overview: 04/18/2017 Pt had 2 previous C sections, one in [place] and the other in [facility]. She desires a repeat C section. Patient signed a release of records form to obtain her operative C Section report from [place]. History of delivery, currently 04/18/2017 12/03/2017 Overview: 04/18/2017Susi had labor and delivery at 36 weeks with her first child. She did not have any labor with her 2nd child and delivered at term. Denies any progesterone injections or cerclage with her pregnancies.Daron signed release form for records from [facility]. TKRN Patient requested diagnostic testing 04/18/2017 12/03/2017 Overview: 04/18/2017Patient desires nuchal ultrasound and Materna 21 testing. TKRN documented as of this encounter (statuses as of 09/03/2023) [facility]09-21-2017 History of Past illness Narrative* Problem Noted Date Diagnosed Date Resolved Date with history of ce sarean section, antepartum 04/18/2017 12/03/2017 Overview: 04/18/2017 Pt had 2 previous C sections, one in [place] and the other in [facility]. She desires a repeat C section. Patient signed a release of records form to obtain her operative C Section report from [place]. History of delivery, currently 04/18/2017 12/03/2017 Overview: 04/18/2017Susi had labor and delivery at 36 weeks with her first child. She did not have any labor with her 2nd child and delivered at term. Denies any progesterone injections or cerclage with her pregnancies.Daron signed release form for records from [facility]. TKRN Patient requested diagnostic testing 04/18/2017 12/03/2017 Overview: 04/18/2017Patient desires nuchal ultrasound and Materna 21 testing. TKRN documented as of this encounter (statuses as of 09/16/2023) [facility]09-21-2017 History of Past illness Narrative* Problem Noted Date Diagnosed Date Resolved Date with history of ce sarean section, antepartum 04/18/2017 12/03/2017 Overview: 04/18/2017 Pt had 2 previous C sections, one in [place] and the other in [facility]. She desires a repeat C section. Patient signed a release of records form to obtain her operative C Section report from [place]. History of delivery, currently 04/18/2017 12/03/2017 Overview: 04/18/2017Susi had labor and delivery at 36 weeks with her first child. She did not have any labor with her 2nd child and delivered at term. Denies any progesterone injections or cerclage with her pregnancies.Daron signed release form for records from [facility]. TKRN Patient requested diagnostic testing 04/18/2017 12/03/2017 Overview: 04/18/2017Patient desires nuchal ultrasound and Materna 21 testing. TKRN documented as of this encounter (statuses as of 10/21/2023) [facility]09-21-2017 History of Past illness Narrative* Problem Noted Date Diagnosed Date Resolved Date with history of ce sarean section, antepartum 04/18/2017 12/03/2017 Overview: 04/18/2017 Pt had 2 previous C sections, one in [place] and the other in [facility]. She desires a repeat C section. Patient signed a release of records form to obtain her operative C Section report from [place]. History of delivery, currently 04/18/2017 12/03/2017 Overview: 04/18/2017Susi had labor and delivery at 36 weeks with her first child. She did not have any labor with her 2nd child and delivered at term. Denies any progesterone injections or cerclage with her pregnancies.Daron signed release form for records from [facility]. TKRN Patient requested diagnostic testing 04/18/2017 12/03/2017 Overview: 04/18/2017Patient desires nuchal ultrasound and Materna 21 testing. TKRN documented as of this encounter (statuses as of 10/29/2023) [facility]09-21-2017 History of Past illness Narrative* Problem Noted Date Diagnosed Date Resolved Date with history of ce sarean section, antepartum 04/18/2017 12/03/2017 Overview: 04/18/2017 Pt had 2 previous C sections, one in [place] and the other in [facility]. She desires a repeat C section. Patient signed a release of records form to obtain her operative C Section report from [place]. History of delivery, currently 04/18/2017 12/03/2017 Overview: 04/18/2017Susi had labor and delivery at 36 weeks with her first child. She did not have any labor with her 2nd child and delivered at term. Denies any progesterone injections or cerclage with her pregnancies.Daron signed release form for records from [facility]. TKRN Patient requested diagnostic testing 04/18/2017 12/03/2017 Overview: 04/18/2017Patient desires nuchal ultrasound and Materna 21 testing. TKRN documented as of this encounter (statuses as of 10/29/2023) [facility] noteNo assessment information availableC[facility] Work Phone: Evaluation note* Diagnosis Recurrent UTI- Primary Urinary tract infection, site not specified Vaginal discharge Leukorrhea, not specified as infective documented in this encounter [facility] note* Diagnosis Class 1 obesity with body mass index (BMI) of 34.0 to 34.9 in adult, unspecified obesity type, unspecified whether serious comorbidity present- Primary Unintended weight gain Abnormal weight gain Thyroid disease Unspecified disorder of thyroid documented in this encounter [facility] note* Diagnosis Encounter for screening mammogram for breast cancer documented in this encounter [facility] note* Diagnosis Encounter for gynecological examination (general) (routine) without abnormal findings- Primary Encounter for screening mammogram for malignant neoplasm of breast Other screening mammogram Class 1 obesity with body mass index (BMI) of 30.0 to 30.9 in adult, unspecified obesity type, unspecified whether serious comorbidity present BMI 30.0-30.9,adult Body Mass Index 30.0-30.9, adult documented in this encounter [facility] note* Diagnosis Hx of iron deficiency anemia- Primary Personal history of diseases of blood and blood-forming organs documented in this encounter [facility] note* Diagnosis Polyarthropathy, inflammatory (HCC)- Primary Unspecified inflammatory polyarthropathy Class 1 obesity without serious comorbidity with body mass index (BMI) of 31.0 to 31.9 in adult, unspecified obesity type Encounter for weight management documented in this encounter [facility] note* Diagnosis Class 1 obesity without serious comorbidity with body mass index (BMI) of 31.0 to 31.9 in adult, unspecified obesity type- Primary Encounter for weight management Encounter for weight loss counseling Dietary surveillance and counseling Other depression Low ferritin Other nonspecific findings on examination of blood Hypothyroidism, unspecified type documented in this encounter [facility] note* Diagnosis Polyarthropathy, inflammatory (HCC)- Primary Unspecified inflammatory polyarthropathy Hypothyroidism, unspecified type Deficiency anemia Unspecified deficiency anemia Class 1 obesity without serious comorbidity with body mass index (BMI) of 31.0 to 31.9 in adult, unspecified obesity type Encounter for weight management documented in this encounter [facility] note* Diagnosis Hypothyroidism, unspecified type- Primary Polyarthropathy, [...] iron deficiency anemia [facility] encounter [facility] [facility] Diagnosis Malaise and fatigue- Primary Other malaise and fatigue Polyarthropathy, inflammatory (HCC) Unspecified inflammatory polyarthropathy Hypothyroidism, unspecified type Class 1 obesity without serious comorbidity with body mass index (BMI) of 31.0 to 31.9 in adult, unspecified obesity type Other migraine without status migrainosus, not intractable Poor sleep [facility] Diagnosis Encounter for screening mammogram for breast cancer [facility] Diagnosis Malaise and fatigue- Primary Other [...] Other screening mammogram [facility] Diagnosis Anxiety and depression- Primary Dysthymic disorder Thyroid disease Unspecified disorder of thyroid Crohn's disease of colon without complication (HCC) documented [facility] Diagnosis Abnormal uterine bleeding (AUB)- Primary Adenomyosis of uterus Malpositioned intrauterine device (IUD), initial encounter [facility] Diagnosis Encounter for screening mammogram for breast cancer [facility] Diagnosis Abnormal uterine bleeding (AUB) IUD (intrauterine device) in place Presence of intrauterine contraceptive device [facility] Diagnosis Encounter for IUD removal- Primary Encounter for removal of intrauterine contraceptive device Encounter for IUD insertion Encounter for insertion of intrauterine contraceptive device Malpositioned intrauterine device (IUD), initial encounter Abnormal uterine bleeding (AUB) Adenomyosis of uterus documented [facility] Diagnosis Malaise and fatigue- Primary Other [...] serious comorbidity present [facility] Diagnosis Inappropriately low serum insulin- Primary Polyarthropathy, inflammatory (HCC) Unspecified inflammatory polyarthropathy Hypothyroidism, unspecified type Malaise and fatigue Other malaise and fatigue documented [facility] Diagnosis Encounter for gynecological examination (general) (routine) without abnormal findings- Primary Encounter for screening mammogram for breast cancer documented [facility] Diagnosis Inappropriately low serum insulin- Primary [facility] Diagnosis Class 1 obesity with body mass index (BMI) of 34.0 to 34.9 in adult, unspecified obesity type, unspecified whether serious comorbidity present [facility] Diagnosis Malaise and fatigue- Primary Other malaise and fatigue Hypothyroidism, unspecified type Polyarthropathy, inflammatory (HCC) Unspecified inflammatory polyarthropathy Other migraine without status migrainosus, not intractable Poor sleep Iron deficiency Iron deficiency anemia, unspecified Class 1 obesity without serious comorbidity with body mass index (BMI) of 31.0 to 31.9 in adult, unspecified obesity type documented [facility] this encounter [facility] Diagnosis Anxiety and depression Dysthymic disorder documented [facility] Diagnosis Urinary frequency- Primary Vaginal odor Unspecified symptom associated with female genital organs documented [facility] this [facility] Diagnosis Thyroid disease Unspecified disorder of thyroid documented [facility] Diagnosis Malaise and fatigue- Primary Other [...] serious comorbidity present [facility] Diagnosis Other migraine without status migrainosus, not intractable Poor sleep Class 1 obesity without serious comorbidity with body mass index (BMI) of 31.0 to 31.9 in adult, unspecified obesity type documented [facility] this encounter [facility] Diagnosis Failure to attend appointment with reason given- Primary documented in this encounter [facility] Discharge instructions Additional Instructions Your CT scan showed mild intrahepatic and extreme hepatic biliary duct dilation with gallstones. You have signs of fatty liver on ultrasound with AST of 95 and ALT of 84. You need to follow-up with your GI physician for this. You need to follow-up with general surgery for your gallstones. Follow-up with your [employer] for the 4 .6 x 3.2 large cyst in the right ovary. Return back to the ED if symptoms change or worsen.[facility] Work Phone: Hospital Discharge instructions Additional Instructions Please eat a bland diet with smaller portions to help prevent reoccurrence of pain. Take the prescribed medications as directed to help control symptoms. Keep your appointment for your gallbladder removal in 2 days. However if you develop a temperature/fever of 100.4 or higher or your pain is not at a bearable level with the prescribed medication please return to the hospital [facility]: Reason for referral (narrative)* Diagnostic Procedure Only (Routine) - Authorized Specialty Diagnoses / Procedures Referred By Kaushik stone Referred To Contact [facility] Diagnoses Encounter for screening mammogram for breast cancer Procedures NEL SCREENING W NURIA SCREENING DIGITAL BREAST TOMOSYNTHESIS BI SCREENING MAMMOGRAPHY BI 2-VIEW BREAST INC Brenda Archuleta APRN.[employer] [address] [place] [address] [facility] [address] [place] [address] Referral ID Status Reason Start Date Expiration Date Visits Requested Visits Authorized [id number] Authorized Auto-Generat ed Referral 08/17/2023 1 1 [facility] for referral (narrative)* Diagnostic Procedure Only (Routine) - Pending Review Specialty Diagnoses / Procedures Referred By Nilsac t Referred To Contact [facility] Diagnoses Encounter for screening mammogram for breast cancer Procedures NEL SCREENING W NURIA SCREENING DIGITAL BREAST TOMOSYNTHESIS BI SCREENING MAMMOGRAPHY BI 2-VIEW BREAST INC CAD Brenda Roy APRN.CNP [address] [place] [address] [facility] [address] [place] [address] Referral ID Status Reason Start Date Expiration Date Visits Requested Visits Authorized [id number] Pending Review Auto-Generat ed Referral 10/16/2023 11/14/2024 1 1 [facility] for referral (narrative)* Diagnostic Procedure Only (Routine) - Pending Review Specialty Diagnoses / Procedures Referred By Kaushik t Referred To Contact [facility] Diagnoses Encounter for screening mammogram for malignant neoplasm of breast Procedures NEL SCREENING W NURIA SCREENING DIGITAL BREAST TOMOSYNTHESIS BI SCREENING MAMMOGRAPHY BI 2-VIEW BREAST INC CAD Marleni Almonte MD [address] [place] [address] [facility] [address] [place] [address] Referral ID Status Reason Start Date Expiration Date Visits Requested Visits Authorized [id number] Pending Review Auto-Generat ed Referral 10/29/2023 11/27/2024 1 1 * Medication Prior Authorization - Closed Specialty Diagnoses / Procedures Referred By Kaushik t Referred To Contact Diagnoses Class 1 obesity without serious comorbidity with body mass index (BMI) of 31.0 to 31.9 in adult, unspecified obesity type Marleni Almonte MD [address] [place] [address] Referral ID Status Reason Start Date Expiration Date Visits Re quested Visits Authorized [id number] Closed 1 1 * Diagnostic Procedure Only (Routine) - Authorized Specialty Diagnoses / Procedures Referred By Contac t Referred To Contact [facility] Diagnoses Abnormal uterine bleeding (AUB) IUD (intrauterine device) in place Procedures PELVIC US WHI US PELVIC NONOBSTETRIC REAL-TIME IMAGE COMPLETE Marleni Almonte MD [address] [place] [address] [facility] [address] [place] [address] Referral ID Status Reason Start Date Expiration Date Visits Requested Visits Authorized [id number] Authorized Auto-Generat ed Referral 10/29/2023 10/28/2024 1 1 [facility] for referral (narrative)* Outpatient Procedure (Routine) - Pending Review Specialty Diagnoses / Procedures Referred By Contac t Referred To [facility] [place]note 2] Diagnoses Malpositioned intrauterine device (IUD), initial encounter Procedures REMOVE INTRAUTERINE DEVICE REMOVE INTRAUTERINE DEVICE Marleni Almonte MD [address] [place] [address] [facility] [address] [place] [address] Referral ID Status Reason Start Date Expiration Date Visits Requested Visits Authorized [id number] Pending Review Auto-Generat ed Referral 11/21/2023 11/20/2024 1 1 * Outpatient Procedure (Routine) - Authorized Specialty Diagnoses / Procedures Referred By Contac t Referred To Contact [facility] Diagnoses Abnormal uterine bleeding (AUB) Adenomyosis of uterus Encounter for removal of intrauterine contraceptive device Encounter for insertion of intrauterine contraceptive device Procedures INSERT INTRAUTERINE DEVICE LEVONORGESTREL IU 52MG 5 YR INSERT INTRAUTERINE DEVICE REMOVE INTRAUTERINE DEVICE Marleni Almonte MD [address] [place] [address] [facility] [address] [place] [address] Referral ID Status Reason Start Date Expiration Date Visits Requested Visits Authorized [id number] Authorized Auto-Generat ed Referral 11/21/2023 07/28/2024 2 2 [facility] for referral (narrative)* Diagnostic Procedure Only (Routine) - Authorized Specialty Diagnoses / Procedures Referred By Kaushik stone Referred To Contact [facility] Diagnoses Encounter for screening mammogram for breast cancer Procedures NEL SCREENING W NURIA SCREENING DIGITAL BREAST TOMOSYNTHESIS BI SCREENING MAMMOGRAPHY BI 2-VIEW BREAST INC CAD Marleni Almonte MD [address] [place] [address] [facility] [address] [place] [address] Referral ID Status Reason Start Date Expiration Date Visits Requested Visits Authorized [id number] Authorized Auto-Generat ed Referral 03/03/2024 04/02/2025 1 1 [facility] for referral (narrative)No reason for referral information availableWBrown [facility] Hospital Work Phone: Reason for visit Narrative* Diagnostic Procedure Only (Routine) - Closed Specialty Diagnoses / Procedures Referred By Kaushik stone Referred To Contact [facility] Diagnoses Encounter for screening mammogram for breast cancer Procedures NEL SCREENING W NURIA SCREENING DIGITAL BREAST TOMOSYNTHESIS BI SCREENING MAMMOGRAPHY BI 2-VIEW BREAST INC CAD Brenda Roy APRN.[employer] [address] [place] [address] [facility] [address] [place] [address] Referral ID Status Reason Start Date Expiration Date V isits Requested Visits Authorized [id number] Closed Auto-Generate d Referral 10/16/2023 11/14/2024 1 1 [facility] Summary Purpose Family History Mother Name Dates [...] Do you have a Healthcare Power of Dairy Department Manager? No December 28, 2024 4:20pm Advance Directive Response Recorded Date/ Time Do you have a Healthcare Power of Dairy Department Manager? No December 28, 2024 4:20pm Do you have a Healthcare Power of Dairy Department Manager? No January 12, 2025 4:36am Reason for Referral Specialty Diagnoses / Procedures Referred By Contac t Referred To Contact Endocrinology Diagnoses Inappropriately low serum insulin Procedures CONSULT TO ENDOCRINOLOGY OFFICE/OUTPATIENT [facility] 60 MINUTES Marleni Almonte MD [address] [place] [address] Referral ID Status Reason Start Date Expiration Date Visits Requested Visits Authorized [id number] Authorized PCP Requested Referral 02/10/2024 02/06/2025 1 1 Specialty Diagnoses / Procedures Referred By Kaushik t Referred To Contact Diagnoses Class 1 obesity without serious comorbidity with body mass index (BMI) of 31.0 to 31.9 in adult, unspecified obesity type Marleni Almonte MD [address] [place] [address] Referral ID Status Reason Start Date Expiration Date Visits Re quested Visits Authorized [id number] Closed 1 1 Specialty Diagnoses / Procedures Referred By Kaushik stone Referred To Contact Diagnoses Class 1 obesity with body mass index (BMI) of 34.0 to 34.9 in adult, unspecified obesity type, unspecified whether serious comorbidity present Marleni Almonte MD [address] [place] [address] Referral ID Status Reason Start Date Expiration Date Visits Re quested Visits Authorized [id number] Closed 1 1 Chief Complaint and Reason [...] 10:32am Abdominal pain, epigastric January 04 10:32am Chief Complaint Admit Date ABD PAIN December 28, 2024 3:58p m ER F/U - GALLBLADDER January 04, 2025 10:3 2am INT LAB ORDER January 04, 2025 11:50 am ABD PAIN January 12, 2025 4:35 am Additional Source Comments INFORMATION SOURCE (unrecogn ized section and content) DATE CREATED AUTHOR 01/22/2018 [facility] DATE CREATED AUTHOR AUTHOR'S ORGANIZ ATION 01/22/2018 [facility] DATE CREATED AUTHOR AUTHOR'S ORGANIZ ATION 11/13/2018 [facility] DATE CREATED AUTHOR AUTHOR'S ORGANIZ ATION 07/05/2020 [facility] DATE CREATED AUTHOR AUTHOR'S ORGANIZ ATION 10/09/2021 [facility] DATE CREATED AUTHOR AUTHOR'S ORGANIZ ATION 10/10/[address] [facility] DATE CREATED AUTHOR AUTHOR'S ORGANIZ ATION 01/05/2022 [facility] DATE CREATED AUTHOR AUTHOR'S ORGANIZ ATION 02/28/2024 [facility] DATE CREATED AUTHOR AUTHOR'S ORGANIZ ATION 01/01/2025 [facility] DATE CREATED AUTHOR AUTHOR'S ORGANIZ ATION 01/12/2025 [facility] <item><item><item> Privacy Markings (unrecogniz ed section and [...] or prosecute any alcohol or drug abuse patient.[facility] AdministrationIn the event this information is protected by the Federal Confidentiality of Alcohol and Drug Abuse Patient Records regulations: The Federal rules restrict any use of the information to criminally investigate or prosecute any alcohol or drug abuse patient.[facility] AdministrationIn the event this information is protected by the Federal Confidentiality of Alcohol and Drug Abuse Patient Records regulations: The Federal rules restrict any use of the information to criminally investigate or prosecute any alcohol or drug abuse patient.[facility] AdministrationIn the event this information is protected by the Federal Confidentiality of Alcohol and Drug Abuse Patient Records regulations: The Federal rules restrict any use of the information to criminally investigate or prosecute any alcohol or drug abuse patient.[facility] AdministrationIn the event this information is protected by the Federal Confidentiality of Alcohol and Drug Abuse Patient Records regulations: The Federal rules restrict any use of the information to criminally investigate or prosecute any alcohol or drug abuse patient.[facility] AdministrationIn the event this information is protected by the Federal Confidentiality of Alcohol and Drug Abuse Patient Records regulations: The Federal rules restrict any use of the information to criminally investigate or prosecute any alcohol or drug abuse patient.[facility] AdministrationIn the event this information is protected by the Federal Confidentiality of Alcohol and Drug Abuse Patient Records regulations: The Federal rules restrict any use of the information to criminally investigate or prosecute any alcohol or drug abuse patient.[facility] AdministrationIn the event this information is protected by the Federal Confidentiality of Alcohol and Drug Abuse Patient Records regulations: The Federal rules restrict any use of the information to criminally investigate or prosecute any alcohol or drug abuse patient.[facility] AdministrationIn the event this information is protected by the Federal Confidentiality of Alcohol and Drug Abuse Patient Records regulations: The Federal rules restrict any use of the information to criminally investigate or prosecute any alcohol or drug abuse patient.[facility] AdministrationIn the event this information is protected by the Federal Confidentiality of Alcohol and Drug Abuse Patient Records regulations: The Federal rules restrict any use of the information to criminally investigate or prosecute any alcohol or drug abuse patient.[facility] AdministrationIn the event this information is protected by the Federal Confidentiality of Alcohol and Drug Abuse Patient Records regulations: The Federal rules restrict any use of the information to criminally investigate or prosecute any alcohol or drug abuse patient.[facility] AdministrationIn the event this information is protected by the Federal Confidentiality of Alcohol and Drug Abuse Patient Records regulations: The Federal rules restrict any use of the information to criminally investigate or prosecute any alcohol or drug abuse patient.[facility] AdministrationIn the event this information is protected by the Federal Confidentiality of Alcohol and Drug Abuse Patient Records regulations: The Federal rules restrict any use of the information to criminally investigate or prosecute any alcohol or drug abuse patient.[facility] AdministrationIn the event this information is protected by the Federal Confidentiality of Alcohol and Drug Abuse Patient Records regulations: The Federal rules restrict any use of the information to criminally investigate or prosecute any alcohol or drug abuse patient.[facility] AdministrationIn the event this information is protected by the Federal Confidentiality of Alcohol and Drug Abuse Patient Records regulations: The Federal rules restrict any use of the information to criminally investigate or prosecute any alcohol or drug abuse patient.[facility] AdministrationIn the event this information is protected by the Federal Confidentiality of Alcohol and Drug Abuse Patient Records regulations: The Federal rules restrict any use of the information to criminally investigate or prosecute any alcohol or drug abuse patient.[facility] AdministrationIn the event this information is protected by the Federal Confidentiality of Alcohol and Drug Abuse Patient Records regulations: The Federal rules restrict any use of the information to criminally investigate or prosecute any alcohol or drug abuse patient.[facility] AdministrationIn the event this information is protected by the Federal Confidentiality of Alcohol and Drug Abuse Patient Records regulations: The Federal rules restrict any use of the information to criminally investigate or prosecute any alcohol or drug abuse patient.[facility] AdministrationIn the event this information is protected by the Federal Confidentiality of Alcohol and Drug Abuse Patient Records regulations: The Federal rules restrict any use of the information to criminally investigate or prosecute any alcohol or drug abuse patient.[facility] AdministrationIn the event this information is protected by the Federal Confidentiality of Alcohol and Drug Abuse Patient Records regulations: The Federal rules restrict any use of the information to criminally investigate or prosecute any alcohol or drug abuse patient.[facility] AdministrationIn the event this information is protected by the Federal Confidentiality of Alcohol and Drug Abuse Patient Records regulations: The Federal rules restrict any use of the information to criminally investigate or prosecute any alcohol or drug abuse patient.[facility] AdministrationIn the event this information is protected by the Federal Confidentiality of Alcohol and Drug Abuse Patient Records regulations: The Federal rules restrict any use of the information to criminally investigate or prosecute any alcohol or drug abuse patient.[facility] AdministrationIn the event this information is protected by the Federal Confidentiality of Alcohol and Drug Abuse Patient Records regulations: The Federal rules restrict any use of the information to criminally investigate or prosecute any alcohol or drug abuse patient.[facility] AdministrationIn the event this information is protected by the Federal Confidentiality of Alcohol and Drug Abuse Patient Records regulations: The Federal rules restrict any use of the information to criminally investigate or prosecute any alcohol or drug abuse patient.[facility] AdministrationIn the event this information is protected by the Federal Confidentiality of Alcohol and Drug Abuse Patient Records regulations: The Federal rules restrict any use of the information to criminally investigate or prosecute any alcohol or drug abuse patient.[facility] AdministrationIn the event this information is protected by the Federal Confidentiality of Alcohol and Drug Abuse Patient Records regulations: The Federal rules restrict any use of the information to criminally investigate or prosecute any alcohol or drug abuse patient.[facility] AdministrationIn the event this information is protected by the Federal Confidentiality of Alcohol and Drug Abuse Patient Records regulations: The Federal rules restrict any use of the information to criminally investigate or prosecute any alcohol or drug abuse patient.[facility] AdministrationIn the event this information is protected by the Federal Confidentiality of Alcohol and Drug Abuse Patient Records regulations: The Federal rules restrict any use of the information to criminally investigate or prosecute any alcohol or drug abuse patient.[facility] AdministrationIn the event this information is protected by the Federal Confidentiality of Alcohol and Drug Abuse Patient Records regulations: The Federal rules restrict any use of the information to criminally investigate or prosecute any alcohol or drug abuse patient.[facility] AdministrationIn the event this information is protected by the Federal Confidentiality of Alcohol and Drug Abuse Patient Records regulations: The Federal rules restrict any use of the information to criminally investigate or prosecute any alcohol or drug abuse patient.[facility] AdministrationIn the event this information is protected by the Federal Confidentiality of Alcohol and Drug Abuse Patient Records regulations: The Federal rules restrict any use of the information to criminally investigate or prosecute any alcohol or drug abuse patient.[facility] AdministrationIn the event this information is protected by the Federal Confidentiality of Alcohol and Drug Abuse Patient Records regulations: The Federal rules restrict any use of the information to criminally investigate or prosecute any alcohol or drug abuse patient.[facility] AdministrationIn the event this information is protected by the Federal Confidentiality of Alcohol and Drug Abuse Patient Records regulations: The Federal rules restrict any use of the information to criminally investigate or prosecute any alcohol or drug abuse patient.[facility] AdministrationIn the event this information is protected by the Federal Confidentiality of Alcohol and Drug Abuse Patient Records regulations: The Federal rules restrict any use of the information to criminally investigate or prosecute any alcohol or drug abuse patient.[facility] AdministrationIn the event this information is protected by the Federal Confidentiality of Alcohol and Drug Abuse Patient Records regulations: The Federal rules restrict any use of the information to criminally investigate or prosecute any alcohol or drug abuse patient.[facility] AdministrationIn the event this information is protected by the Federal Confidentiality of Alcohol and Drug Abuse Patient Records regulations: The Federal rules restrict any use of the information to criminally investigate or prosecute any alcohol or drug abuse patient.[facility] AdministrationIn the event this information is protected by the Federal Confidentiality of Alcohol and Drug Abuse Patient Records regulations: The Federal rules restrict any use of the information to criminally investigate or prosecute any alcohol or drug abuse patient.[facility] AdministrationIn the event this information is protected by the Federal Confidentiality of Alcohol and Drug Abuse Patient Records regulations: The Federal rules restrict any use of the information to criminally investigate or prosecute any alcohol or drug abuse patient.[facility] AdministrationIn the event this information is protected by the Federal Confidentiality of Alcohol and Drug Abuse Patient Records regulations: The Federal rules restrict any use of the information to criminally investigate or prosecute any alcohol or drug abuse patient.[facility] AdministrationIn the event this information is protected by the Federal Confidentiality of Alcohol and Drug Abuse Patient Records regulations: The Federal rules restrict any use of the information to criminally investigate or prosecute any alcohol or drug abuse patient.[facility] AdministrationIn the event this information is protected by the Federal Confidentiality of Alcohol and Drug Abuse Patient Records regulations: The Federal rules restrict any use of the information to criminally investigate or prosecute any alcohol or drug abuse patient.[facility] AdministrationIn the event this information is protected by the Federal Confidentiality of Alcohol and Drug Abuse Patient Records regulations: The Federal rules restrict any use of the information to criminally investigate or prosecute any alcohol or drug abuse patient.[facility] AdministrationIn the event this information is protected by the Federal Confidentiality of Alcohol and Drug Abuse Patient Records regulations: The Federal rules restrict any use of the information to criminally investigate or prosecute any alcohol or drug abuse patient.[facility] AdministrationIn the event this information is protected by the Federal Confidentiality of Alcohol and Drug Abuse Patient Records regulations: The Federal rules restrict any use of the information to criminally investigate or prosecute any alcohol or drug abuse patient.[facility] AdministrationIn the event this information is protected by the Federal Confidentiality of Alcohol and Drug Abuse Patient Records regulations: The Federal rules restrict any use of the information to criminally investigate or prosecute any alcohol or drug abuse patient.[facility] AdministrationIn the event this information is protected by the Federal Confidentiality of Alcohol and Drug Abuse Patient Records regulations: The Federal rules restrict any use of the information to criminally investigate or prosecute any alcohol or drug abuse patient.[facility] AdministrationIn the event this information is protected by the Federal Confidentiality of Alcohol and Drug Abuse Patient Records regulations: The Federal rules restrict any use of the information to criminally investigate or prosecute any alcohol or drug abuse patient.[facility] AdministrationIn the event this information is protected by the Federal Confidentiality of Alcohol and Drug Abuse Patient Records regulations: The Federal rules restrict any use of the information to criminally investigate or prosecute any alcohol or drug abuse patient.[facility] Administration Care Teams (unrecognized sec tion and content) Research Consultant Relationship Specialty Start Date End Date Podlogar, Brenda, MAINTENANCE TECHNICIAN 3RD SHIFT.IT PROJECT LEAD [address] [facility] [place] [address] PCP - General Family Practice 05/15/21 Team Status: Inactive Member Role Status Dates Truman Olguin PA-C Attending Provider Active Research Consultant Relationship Specialty Start Date End Date Podlogar, , MAINTENANCE TECHNICIAN 3RD SHIFT.IT PROJECT LEAD [address] [facility] [place] [address] PCP - General Family Practice 05/15/21 Research Consultant Relationship Specialty Start Date End Date Podlogar, , MAINTENANCE TECHNICIAN 3RD SHIFT.IT PROJECT LEAD [address] [facility] [place] [address] PCP - General Family Practice 05/15/21 Research Consultant Relationship Specialty Start Date End Date Podlogar, , MAINTENANCE TECHNICIAN 3RD SHIFT.IT PROJECT LEAD [address] [facility] [place] [address] PCP - General Family Practice 05/15/21 Research Consultant Relationship Specialty Start Date End Date Podlogar, , MAINTENANCE TECHNICIAN 3RD SHIFT.IT PROJECT LEAD [address] [facility] [place] [address] PCP - General Family Practice 05/15/21 Research Consultant Relationship Specialty Start Date End Date Podlogar, , MAINTENANCE TECHNICIAN 3RD SHIFT.IT PROJECT LEAD [address] [facility] [place] [address] PCP - General Family Medicine 05/15/21 Research Consultant Relationship Specialty Start Date End Date Podlogar, , MAINTENANCE TECHNICIAN 3RD SHIFT.IT PROJECT LEAD [address] [facility] [place] [address] PCP - General Family Medicine 05/15/21 Research Consultant Relationship Specialty Start Date End Date Podlogar, Brenda, MAINTENANCE TECHNICIAN 3RD SHIFT.IT PROJECT LEAD [address] [facility] [place] [address] PCP - General Family Medicine 05/15/21 Research Consultant Relationship Specialty Start Date End Date Podlogar, Brenda, MAINTENANCE TECHNICIAN 3RD SHIFT.IT PROJECT LEAD [address] [facility] [place] [address] PCP - General Family Medicine 05/15/21 Research Consultant Relationship Specialty Start Date End Date Podlogar, Brenda, MAINTENANCE TECHNICIAN 3RD SHIFT.IT PROJECT LEAD [address] [facility] [place] [address] PCP - General Family Medicine 05/15/21 Research Consultant Relationship Specialty Start Date End Date Podlogar, Brenda, MAINTENANCE TECHNICIAN 3RD SHIFT.IT PROJECT LEAD [address] [facility] [place] [address] PCP - General Family Medicine 05/15/21 Research Consultant Relationship Specialty Start Date End Date Podlogar, Brenda, MAINTENANCE TECHNICIAN 3RD SHIFT.IT PROJECT LEAD [address] [facility] [place] [address] PCP - General Family Medicine 05/15/21 Research Consultant Relationship Specialty Start Date End Date Podlogar, Brenda, MAINTENANCE TECHNICIAN 3RD SHIFT.IT PROJECT LEAD [address] [facility] [place] [address] PCP - General Family Medicine 05/15/21 Research Consultant Relationship Specialty Start Date End Date Podlogar, Brenda, MAINTENANCE TECHNICIAN 3RD SHIFT.IT PROJECT LEAD [address] [facility] [place] [address] PCP - General Family Medicine 05/15/21 Research Consultant Relationship Specialty Start Date End Date Podlogar, Brenda, MAINTENANCE TECHNICIAN 3RD SHIFT.IT PROJECT LEAD [address] [facility] [place] [address] PCP - General Family Medicine 05/15/21 Research Consultant Relationship Specialty Start Date End Date Podlogar, Brenda, MAINTENANCE TECHNICIAN 3RD SHIFT.IT PROJECT LEAD [address] [facility] [place] [address] PCP - General Family Medicine 05/15/21 Research Consultant Relationship Specialty Start Date End Date Podlogar, , MAINTENANCE TECHNICIAN 3RD SHIFT.IT PROJECT LEAD [address] [facility] [place] [address] PCP - General Family Medicine 05/15/21 Research Consultant Relationship Specialty Start Date End Date Podlogar, , MAINTENANCE TECHNICIAN 3RD SHIFT.IT PROJECT LEAD [address] [facility] [place] [address] PCP - General Family Medicine 05/15/21 Research Consultant Relationship Specialty Start Date End Date Podlogar, , MAINTENANCE TECHNICIAN 3RD SHIFT.IT PROJECT LEAD [address] [facility] [place] [address] PCP - General Family Medicine 05/15/21 Research Consultant Relationship Specialty Start Date End Date Podlogar, , MAINTENANCE TECHNICIAN 3RD SHIFT.IT PROJECT LEAD [address] [facility] [place] [address] PCP - General Family Medicine 05/15/21 Research Consultant Relationship Specialty Start Date End Date Podlogar, , MAINTENANCE TECHNICIAN 3RD SHIFT.IT PROJECT LEAD [address] [facility] [place] [address] PCP - General Family Medicine 05/15/21 Research Consultant Relationship Specialty Start Date End Date Podlogar, , MAINTENANCE TECHNICIAN 3RD SHIFT.IT PROJECT LEAD [address] [facility] [place] [address] PCP - General Family Medicine 05/15/21 Research Consultant Relationship Specialty Start Date End Date Podlogar, , MAINTENANCE TECHNICIAN 3RD SHIFT.IT PROJECT LEAD [address] [place] [place] [address] PCP - General Family Medicine 05/15/21 Research Consultant Relationship Specialty Start Date End Date Podlogar, , MAINTENANCE TECHNICIAN 3RD SHIFT.IT PROJECT LEAD [address] [facility] [place] [address] PCP - General Family Medicine 05/15/21 Research Consultant Relationship Specialty Start Date End Date Podlogar, , MAINTENANCE TECHNICIAN 3RD SHIFT.IT PROJECT LEAD [address] [facility] [place] [address] PCP - General Family Medicine 05/15/21 Research Consultant Relationship Specialty Start Date End Date Podlogar, , MAINTENANCE TECHNICIAN 3RD SHIFT.IT PROJECT LEAD [address] [facility] [place] [address] PCP - General Family Medicine 05/15/21 Research Consultant Relationship Specialty Start Date End Date Podlogar, , MAINTENANCE TECHNICIAN 3RD SHIFT.IT PROJECT LEAD [address] [facility] [place] [address] PCP - General Family Medicine 05/15/21 Research Consultant Relationship Specialty Start Date End Date Podlogar, , MAINTENANCE TECHNICIAN 3RD SHIFT.IT PROJECT LEAD [address] [facility] [place] [address] PCP - General Family Medicine 05/15/21 Research Consultant Relationship Specialty Start Date End Date Podlogar, , MAINTENANCE TECHNICIAN 3RD SHIFT.IT PROJECT LEAD [address] [facility] [place] [address] PCP - General Family Medicine 05/15/21 Research Consultant Relationship Specialty Start Date End Date Podlogar, , MAINTENANCE TECHNICIAN 3RD SHIFT.IT PROJECT LEAD [address] [facility] [place] [address] PCP - General Family Medicine 05/15/21 Research Consultant Relationship Specialty Start Date End Date Podlogar, , MAINTENANCE TECHNICIAN 3RD SHIFT.IT PROJECT LEAD [address] [facility] [place] [address] PCP - General Family Medicine 05/15/21 Research Consultant Relationship Specialty Start Date End Date Podlogar, , MAINTENANCE TECHNICIAN 3RD SHIFT.IT PROJECT LEAD [address] [facility] [place] [address] PCP - General Family Medicine 05/15/21 Research Consultant Relationship Specialty Start Date End Date Podlogar, , MAINTENANCE TECHNICIAN 3RD SHIFT.IT PROJECT LEAD [address] [facility] [place] [address] PCP - General Family Medicine 05/15/21 Research Consultant Relationship Specialty Start Date End Date Podlogar, , MAINTENANCE TECHNICIAN 3RD SHIFT.IT PROJECT LEAD [address] [facility] [place] [address] PCP - General Family Medicine 05/15/21 Research Consultant Relationship Specialty Start Date End Date Podlogar, , MAINTENANCE TECHNICIAN 3RD SHIFT.IT PROJECT LEAD [address] [facility] [place] [address] PCP - General Family Medicine 05/15/21 Research Consultant Relationship Specialty Start Date End Date Podlogar, , MAINTENANCE TECHNICIAN 3RD SHIFT.IT PROJECT LEAD [address] [facility] [place] [address] PCP - General Family Medicine 05/15/21 Research Consultant Relationship Specialty Start Date End Date Podlogar, , MAINTENANCE TECHNICIAN 3RD SHIFT.IT PROJECT LEAD [address] [facility] [place] [address] PCP - General Family Medicine 05/15/21 Research Consultant Relationship Specialty Start Date End Date Podlogar, , MAINTENANCE TECHNICIAN 3RD SHIFT.IT PROJECT LEAD [address] [facility] [place] [address] PCP - General Family Medicine 05/15/21 Team Status: Active Member Role Status Dates Brenda Podlogar WHEEL INSTALLER, WHEEL INSTALLER-C Primary Care Provider Active Team Status: Inactive Member Role Status Dates Brenda Podlogar WHEEL INSTALLER, WHEEL INSTALLER-C Primary Care Provider Active Start: December 28, 2024 End: December 28, 2024 Dr. Moises Mtz , DO Emergency Provider Activ e Start: December 28, 2024 End: December 28, 2024 Research Consultant Relationship Specialty Start Date End Date Felipa Alvarenga MD [address] [place] [address] PCP - General Family Medicine 12/29/24 Team Status: Inactive Member Role Status Dates Brenda Podlogar WHEEL INSTALLER, WHEEL INSTALLER-C Primary Care Provider Active Start: December 28, 2024 End: December 28, 2024 Dr. Moises Mtz DO Attending Provider Activ e Start: December 28, 2024 End: December 28, 2024 Dr. Moises Mtz , DO Emergency Provider Activ e Start: December 28, 2024 End: December 28, 2024 Team Status: Inactive Member Role Status Dates Brenda Podlogar WHEEL INSTALLER, WHEEL INSTALLER-C Primary Care Provider Active Start: January 04, 2025 End: January 04, 2025 Brenda Podlogar WHEEL INSTALLER, WHEEL INSTALLER-C Referring Provider Active Start: January 04, 2025 End: January 04, 2025 Dr. Yaw Sandhu MD Attending Provider Active Start: January 04, 2025 End: January 04, 2025 Team Status: Active Member Role Status Dates Brenda Podlogar WHEEL INSTALLER, WHEEL INSTALLER-C Primary Care Provider Active Start: January 04, 2025 Dr. Yaw Sandhu MD Attending Provider Active Start: January 04, 2025 Dr. Yaw Sandhu MD Referring Provider Active Start: January 04, 2025 Team Status: Inactive Member Role Status Dates Brenda Podlogar WHEEL INSTALLER, WHEEL INSTALLER-C Primary Care Provider Active Start: January 04, 2025 End: January 04, 2025 Dr. Yaw Sandhu MD Attending Provider Active Start: January 04, 2025 End: January 04, 2025 Dr. Yaw Sandhu MD Referring Provider Active Start: January 04, 2025 End: January 04, 2025 Research Consultant Relationship Specialty Start Date End Date Felipa Alvarenga MD [address] [place] [address] PCP - General Family Medicine 12/29/24 Team Status: Inactive Member Role Status Dates Brenda Roy WHEEL INSTALLER, WHEEL INSTALLER-C Primary Care Provider Active Start: January 12, 2025 End: January 12, 2025 Dr. Andrez Mendez , DO Emergency Provider Active Start: January 12, 2025 End: January 12, 2025 Goals (unrecognized section and content) Goals may [...] Referred By Contac t Referred To Contact [facility] Diagnoses Abnormal uterine bleeding (AUB) IUD (intrauterine device) in place Procedures PELVIC US WHI US PELVIC NONOBSTETRIC REAL-TIME IMAGE COMPLETE Marleni Almonte MD [address] [place] [address] [facility] [address] [place] [address] Referral ID Status Reason Start Date Expiration Date V isits Requested Visits Authorized [id number] Closed Auto-Generate d Referral 10/29/2023 10/28/2024 1 1 Reason Onset Date Comments IUD Removal 11/26/2023 Insertion Of IUD 11/26/2023 Specialty Diagnoses / Procedures Referred By Kaushik stone Referred To Contact [facility] Diagnoses Abnormal uterine bleeding (AUB) Adenomyosis of uterus Encounter for removal of intrauterine contraceptive device Encounter for insertion of intrauterine contraceptive device Procedures INSERT INTRAUTERINE DEVICE LEVONORGESTREL IU 52MG 5 YR INSERT INTRAUTERINE DEVICE REMOVE INTRAUTERINE DEVICE Marleni Almonte MD [address] [place] [address] [facility] [address] [place] [address] Referral ID Status Reason Start Date Expiration Date Visits Requested Visits Authorized [id number] Authorized Auto-Generat ed Referral 11/21/2023 07/28/2024 2 2 Reason Comments Question Reason Comments Well Woman Reason Comments New Patient Evaluation Low serum insulin Specialty Diagnoses / Procedures Referred By Kaushik stone Referred To Contact Endocrinology Diagnoses Inappropriately low serum insulin Procedures CONSULT TO ENDOCRINOLOGY OFFICE/OUTPATIENT NEW HIGH MDM 60 MINUTES Marleni Almonte MD [address] [place] [address] Referral ID Status Reason Start Date Expiration Date V isits Requested Visits Authorized [id number] Closed PCP Requested Referral 02/10/2024 02/06/2025 1 1 Reason Onset Date Comments Refill Request 06/12/2024 Reason Comments Urinary Problem Nausea, frequency x 3 days Reason Onset Date Comments Refill Request 08/09/2024 Reason Comments Patient Update FOR RECORDS PERTAINING TO PATIENTS WHO ARE [...] BE BASED ON THE PRIMARY CLINICAL RECORDS. [facility]. provides no warranty or guarantee of the accuracy or completeness of information in this document.
[2025-01-14 06:34] LABS: Internal QC Validated? YES +Cl - CLEAR BKGD; Pregnancy, Urine Negative Negative
--- NOTE | 2025-01-14 06:35 | EKG12_ITS ---
Test Reason : preop Blood Pressure : */* mmHG Vent. Rate : 68 BPM Atrial Rate : 68 BPM P-R Int : 148 ms QRS Dur : 88 ms QT Int : 398 ms P-R-T Axes : 67 41 52 degrees QTcB Int : 423 ms Normal sinus rhythm Normal ECG When compared with ECG of 28-Dec-2024 17:22, No significant change was found Confirmed by SERG COX, IRENE ([id number]), supervising editor trailer [employer]SE ([id number]) on 01/19/2025 11:53:15 AM Referred By: Yaw Sandhu Confirmed By: IRENE ULRICH MD
--- NOTE | 2025-01-14 06:54 | HP.PCM_ITS ---
History and Physical Date of Service: 01/04/25 MR#: [id number] Acct: [id number] Name: LACEY AL Rep #: [id number] : 1980 Provider: Dr. Yaw Sandhu MD Age/Sex: 44/F Location: [facility] Status: Signed Intake Vital Signs 12/28/2514:59 01/04/2511:01 Height 5 ft 6 in 5 ft 6 in Weight: 179 lb 8 oz BMI 29.0 BP 121/75 H Blood Pressure Location Rt brachial Position Sitting Respiration 18 Pulse 70 Pulse Source Monitor Temp 97.2 F L Temp Source Temporal Pulse Oximetry (%) 99 Oxygen Delivery Method room air Intake Visit Reasons: ER F/U - GALLBLADDER Chief Complaint: ED f/u- gallbladder Accompanied by: Mother Is patient in pain?: Yes Allergies grass pollen Allergy (Verified 01/05/25 13:53) Othermorphine Adverse Reaction (Verified 01/05/25 13:53) Nausea PFSH Medical History (Updated 01/06/25 @ 18:[address] Yaw Sandhu MD) Arthritis Thyroid disease Blood clot in eye History of Crohn's disease Hypothyroid Non-smoker History of echocardiogram Cholelithiases Crohn's disease Surgical History (Updated 01/05/25 @ 14:03 by Shefali Avila) History of esophagogastroduodenoscopy (EGD) History of colonoscopy History of appendectomy History of Social History Smoking Status: Never smoker HPI HPI HPI: Patient is a 44-year-old female who presents for emergency room follow-up after emergency room evaluation on 12/29/2024. She presents today with her mother. She states that on 12/27/2024 she experienced sudden onset midepigastric discomfort as she was preparing dinner. She states that it immediately presented with a severe intensity and was as if someone was taking her hand and squeezing her in that part of her abdomen. She states that she dropped to her knees because of the intensity. She also notes a stabbing quality that lasted for about 45 minutes. She notes that she is normally stupid stubborn with pain (citing how she drove herself to the hospital with a diagnosis of appe ndicitis) but this pain is far more intense. She states that after initial 45 minutes she experienced a constant pressure as if like she had done thousand sit ups. She is uncertain if there was any associated nausea. She also notes a rather full feeling but reminds me that she did not have dinner at this point. Patient states that since her presentation she has not had any recurrence of the stabbing discomfort but there is persistent pressure of varying intensity. She notes that this intensity progressed to the point over this week and that she considered returning to the emergency department but then it spontaneously improved. With these symptoms she has been reluctant to take much of a diet but has limited herself to a salad with the tiniest bit of [place] dressing as well as smoothies and protein shakes. She does add that she had some chicken salad yesterday at a graduation alliance party and did okay. Outside of the above patient states that her bowel movements are not moving a ton she estimates them to be occurring at a frequency of 1 every other day. She acknowledges some occasional reflux and heartburn. Patient's ER workup notable for CT imaging which showed mild intra and extrahepatic biliary dilation and right upper quadrant ultrasound was performed given mild elevation of LFTs and the dilated common bile duct. ROS General General: Yes weight change (loss intentional); No appetite, fatigue, colon cancer, breast cancer or weakness HEENT HEENT: No difficulty swallowing, eye injury, eye surgery, swollen glands or hoarseness Endo Endocrine: Yes thyroid disease; No diabetes mellitus, thyroid cancer, Hair loss, heat intolerance or cold intolerance Skin Skin: No rash or changing moles Musc Musculoskeletal: Yes arthritis; No back problems, rheumatoid arthritis, gout or joint pain Cardio Cardiovascular: No murmur, pacemaker, heart disease, atrial fibrillation, high blood pressure, heart attack, heart stent, palpitations, shortness of breath with exertion or chest pain Psych Psychiatric: Yes anxiety; No depression or hearing voices Resp Respiratory: No shortness of breath, No sleep apnea, No cough, No COPD, Yes asthma, No emphysema and No wheezing Gastro Gastrointestinal: Yes abdominal pain, Yes nausea or vomiting, Yes diarrhea, Yes constipation, No blood in stool, No acid reflux, No hemorrhoids, No ulcers, Yes gallbladder problem and No black,tarry stools Yamil Hematologic: No blood thinners, No blood disorders, No bleeding, Yes anemia and Yes blood clots Neuro Neurologic: No numbness, No tingling and No weakness Exam Const General: cooperative and anxious Orientation: alert, awake and oriented x3 Resp Effort & Inspection: normal respiratory effort GI Inspection: normal to inspection Other: Nondistended, soft, mild tenderness to palpation primarily of the epigastrium. Negative Kamara sign. Assessment and Plan Assessment and Plan (1) Common bile duct dilatation: Status: Acute (2) Abnormal LFTs: Status: Acute (3) Cholelithiases: Status: Acute (4) Right upper quadrant abdominal pain: Status: Acute (5) Abdominal pain, epigastric: Status: Inactive Orders: Orders Comprehensive Metabolic Profil 01/04/25 K80.20 - Calculus of gallbladder without cholecystitis without obstruction Medications: Discontinued ondansetron Discontinued Reason: Pt no longer taking 4 mg PO Q8H PRN PRN 10 tabs 0RF Nausea Plan Patient is a 44-year-old female who presented for ER follow-up after acute onset right upper quadrant and epigastric discomfort. She underwent extensive workup during her emergency room stay including CT imaging of the abdomen as well as ultrasound imaging of both the right upper quadrant and the pelvis. Salient points of this workup showed cholelithiasis with some bile duct dilation but ultrasound was otherwise equivocal for cholecystitis. Additionally she was n oted to have normal white blood cell count but mildly elevated liver function testing. Given her spontaneous resolution of her discomfort in the rather contracted state of her gallbladder I recommended outpatient follow-up which she makes today. She confirms no recurrence of her initial severe pain but does complain of persistent discomfort, generally. After a careful history I find it difficult to distinguish gallbladder from possible peptic ulcer disease?especially owing to her exam that showed primarily epigastric discomfort. I recommended repeat CMP and EGD as a means of proceeding in a least 2 most invasive approach. I shared with her that if the EGD was negative and its findings then we would plan to, likely, proceed for cholecystectomy. However, shortly following clinics conclusion I obtained results of patient's CMP that showed a significant increase in her alkaline phosphatase. In calculating her our factor with these new values patient has a clear cholestatic pattern. Thus, I telephoned her and recommended pivoting and our management and planning for laparoscopic cholecystectomy with intraoperative cholangiography. I further described the implications for a positive cholangiogram and how this would likely require admission to the hospital with consultation to gastroenterology for ERCP. Patient confirmed understanding. I have examined the patient the following changes are noted: Patient has had an interval ER visits since our last visit in clinic due to uncontrolled discomfort. She also reports some constipation going into today's procedure which she says is probably due to her pain medication. Lastly, she has met with gastroenterology and they have requested a liver biopsy to be performed concurrent with her cholecystectomy. This has been added to her consent which was confirmed. Will now proceed to the operating room for planned procedure.
[2025-01-14] MEDS: Lactated Ringers 1,000 ML 15 ML IV (06:56)
--- NOTE | 2025-01-14 07:22 | PCM.PRE.AN2 ---
ASA Classification* ASA Classification ASA Classification: 2 (Thyroid, crohns) Assessment & Plan Anesthesia* Anesthesia Assessment Anesthesia Assessment: Discussed sedation and/or anesthesia options, risks, benefits, and alternatives with patient/parents/legal guardian/POA. Questions invited. The patient/parents/legal guardian/POA seems to understand and agrees to proceed with anesthesia plan. Reviewed the physical assessment, medical history, allergy history and patient home medications list prior to surgery/procedure/anesthetic and documented any changes. Performed airway and anesthesia risk assessments. Anesthesia Type Anesthesia Type: General History Source History Obtained from:: Patient and Chart Anesthesia Focused Assessment* Temperature: 99.1 F Pulse Rate: 72 Blood Pressure: 131/73 Respiratory Rate: 16 Pulse Ox: 100 Oxygen Delivery Method: Room Air Airway Assessment Mouth opens: >3 cm Mallampati Score: III Teeth Condition: Intact Neck Range of motion (ROM): Full ROM Labs Anesthesia Preop lab: CBC WBC 8.2 K/mm3 (4.4-11.0) 01/12/25 04:40 01/12/25 RBC 4.13 M/mm3 (4.2-5.4) L 01/12/25 04:40 01/12/25 Hgb 12.6 g/dL (12.0-15.0) 01/12/25 04:40 01/12/25 Hct 36.4 % (37-47) L 01/12/25 04:40 01/12/25 Plt Count 339 K/mm3 (150-450) 01/12/25 04:40 01/12/25 CHEMISTRY Potassium 3.5 mmol/L (3.3-5.1) 01/12/25 04:40 01/12/25 Sodium 136 mmol/L (133-145) 01/12/25 04:40 01/12/25 BUN 12 mg/dL (4-19) 01/12/25 04:40 01/12/25 Creatinine 0.64 mg/dL (0.70-1.20) L 01/12/25 04:40 01/12/25 Glucose 93 mg/dL (70-99) 01/12/25 04:40 01/12/25 TSH 2.360 uIU/mL (0.300-4.200) 01/05/25 11:52 01/05/25 COAG PT 13.6 SECONDS (11.9-14.4) 01/06/14 16:11 01/06/14 Urine Test Negative Negative 01/14/25 06:20 01/14/25 Pre-Assessment Diagnosis/Proposed Procedure Planned Operative Procedure(s): (N/A) Laparoscopic, Cholecystectomy w/grams Anesthesia History Anesthesia History - addiction medicine physician: Anesthesia History - addiction medicine physician Hx Hospitalization No 01/05/25 13:56 Any Problems With Anesthesia No 01/05/25 13:56 Cholinesterase deficiency No 01/05/25 13:56 You/Your Family Experience No 01/05/25 13:56 fever (hyperthermia) with Relationship Recent Exposure to Contagious No 01/14/25 06:49 Disease Does patient have nerve No 01/05/25 13:56 stimulator Patient instructed to have device shut off --Does patient have Pacemaker No 01/14/25 06:49 or ICD? When Was Last Pacemaker Check QUESTION #4 FULL TEXT: You/Your Family Experience fever (hyperthermia) with Anesthesia Last Oral Intake Last Oral intake: Last Oral Intake NPO since 00:00 01/14/25 06:49 Meds taken in AM with sips of water? Meds patient instructed to take am of surgery PONV PONV - addiction medicine physician: PONV - addiction medicine physician Female Yes 01/05/25 13:56 HX of Motion Sickness No 01/05/25 13:56 HX of N/V After Surgery No 01/05/25 13:56 Non-Smoker Yes 01/05/25 13:56 Duration of Surgery greater Yes 01/05/25 13:56 than 60 minutes Number of Risk Factors 3 01/05/25 13:56 PONV Score Moderate Risk 01/05/25 13:56 Height & Weight Height & Weight: Anesthesia: Height & Weight Height 5 ft 6 in 01/14/25 06:49 Weight: 83.1 kg 01/14/25 06:49 Body Mass Index (BMI) 29.5 01/14/25 06:49 Respiratory Assessment Respiratory Assessment - addiction medicine physician: Respiratory Tract Infection Hx - addiction medicine physician Hx Respiratory Tract Infection No 01/05/25 13:56 STOP Sleep Apnea STOP Sleep Apnea - addiction medicine physician: STOP Sleep Apnea - addiction medicine physician Hx Hypertension No 01/05/25 13:56 Hx Sleep Apnea No 01/05/25 13:56 CPAP BIPAP Do you snore loudly (louder No 01/05/25 13:56 than talking or can be heard Do you often feel tired/ No 01/05/25 13:56 fatigued/ sleepy during daytime? Has anyone observed you stop No 01/05/25 13:56 breathing during sleep? STOP Results Negative 01/05/25 13:56 QUESTION #5 FULL TEXT : Do you snore loudly (louder than talking or can be heard through closed doors)? Tobacco Use History Tobacco Use History - addiction medicine physician: Tobacco Use History - addiction medicine physician Tobacco Use Smoking Status Never smoker 01/12/25 04:36 Hx Tobacco Use No 01/05/25 13:56 Years Smoking Packs Smoked per Day Smoking Cessation Date was within the last 15 years Hx Smoking Cessation Date Hx Smoking Cessation Counseling Hematologic Medial History Hematologic Hx - addiction medicine physician: Hematologic Medical Hx - electronic technologist Hx of Blood Transfusion No 01/05/25 13:56 Hx of Transfusion in last 3 No 01/05/25 13:56 Months Date of Last Transfusion (if within last 3 months) Ever experience any problems No 01/05/25 13:56 with transfusion(s)? Specify any problems Hx of Preganancy in last 3 N/A 01/05/25 13:56 Months Nurse Filling Out Transfusion NBUCHER 01/05/25 13:56 & Questions: Date: 01/05/25 01/05/25 13:56 Time: 13:57 01/05/25 13:56 Patient unable to answer at this time (ie. confused, unrespo /Reproduction History /Reproductive History - addiction medicine physician: /Reproductive Hx- addiction medicine physician Hx Now No 01/05/25 13:56 Gestational Age (in weeks): EDC: Hx Hx Para Hx Section SAB No 01/12/25 04:36 Active Medications Active Medications: Current Medications Generic Name Dose Route Start Last Admin Trade Name Freq PRN Reason Stop Dose Admin Cefazolin Sodium 2 gm/ Sodium 110 mls @ 150 mls/hr 01/14/25 07:30 Chloride IV 01/14/25 08:13 INTRAOP ONE Lactated Ringer's 1,000 mls @ 15 mls/hr 01/14/25 06:15 01/14/25 06:56 IV 15 mls/hr .Q48H BROOKLYNN Administration PFSH Medical History (Updated 01/14/25 @ 06:[address] Andrez Mendez, DO) Arthritis Thyroid disease Blood clot in eye History of Crohn's disease Hypothyroid Non-smoker History of echocardiogram Cholelithiases Crohn's disease Home Medications ?Medication ?Instructions ?Recorded ?Last Taken ?Type citalopram 20 mg tablet 20 mg PO DAILY 09/09/20 01/13/25 History levothyroxine 75 mcg tablet 75 mcg PO DAILY 09/09/20 01/13/25 History d-mannose 500 mg chewable tablet 500 mg PO DAILY 12/28/24 01/13/25 History (AZO D-Mannose) mecobalamin (vitamin B12) 1,000 1,000 mcg PO DAILY 12/28/24 01/13/25 History mcg chewable tablet multivitamin (Daily Multi-Vitamin 1 tab PO DAILY 12/28/24 01/13/25 History tablet) phentermine 37.5 mg capsule 37.5 mg PO DAILY 12/28/24 01/04/25 History topiramate 50 mg tablet 50 mg PO DAILY 12/28/24 01/04/25 History ondansetron 4 mg disintegrating 4 mg PO TID PRN nausea and 01/12/25 Unknown Rx tablet vomiting #21 tabs oxycodone 5 mg tablet 5 mg PO Q6H PRN pain 3 days #12 01/12/25 01/13/25 23:00 Rx tabs Allergy/AdvReac Type Severity Reaction Status Date / Time grass pollen Allergy Other Verified 01/14/25 06:38 morphine AdvReac Nausea Verified 01/14/25 06:38 Surgical History History of esophagogastroduodenoscopy (EGD) History of colonoscopy History of appendectomy History of Social History Smoking Status: Never smoker Review of Systems (Anesthesia) ROS Narrative System reviewed and no additional complaints, except as documented. Physical Exam Const alert, oriented x3 and average body habitus Resp normal respiratory effort, normal air movement and clear to auscultation bilaterally Cardio regular rate, regular rhythm, no murmurs and diaphoretic
[2025-01-14] MEDS: Cefazolin 2 GM in 0.9% Normal Saline (100mL Bag) 100 ML IV (07:50)
--- NOTE | 2025-01-14 08:00 | RAD_ITS ---
PROCEDURE: CHOLANGIOGRAM/ O R,INITIAL 01/14/2025 REASON FOR EXAM: CHOLECYSTECTOMY W/GRAMS LIVER BIOPSY TECHNIQUE: CHOLANGIOGRAM/ O R,INITIAL Radiation dose 47.33 mGy. Radiation time 114.9 seconds. COMPARISON: Ultrasound of the abdomen on 01/12/2025. FINDINGS: Intraoperative cholangiogram. No filling defect in the common bile duct. Free passage of the contrast to the duodenum. RAD/Cholangiogram/ O R,Initial IMPRESSION: Intraoperative cholangiogram. No filling defect in the common bile duct. Free passage of the contrast to the duodenum. Reading [facility]
[2025-01-14] MEDS: Bupiv/Epi 0.25% 30 ML Vial (08:17)
--- NOTE | 2025-01-14 11:40 | PCM.OPRPT ---
Procedures Digestive 40xxx-49xxx: [id number] Laparo cholecystectomy/graph Operative Report (Standard) Operative Information Date of Procedure: 01/14/25 Pre-Operative Diagnosis: 1. Biliary colic with suspected chronic cholecystitis Post-Operative Diagnosis: Acute on chronic cholecystitis Surgery/Procedure Performed: 1. Laparoscopic cholecystectomy with intraoperative cholangiography 2. Tumno liver biopsy adjutant general: Yes Felled Seam Operator Chainstitch: Luann Sands Tasks completed by airline pilot/first officer: Opening & closing, Retracting and Other (Laparoscopic camera operation) Type of Anesthesia: General/Supplemental RN Documented Start/Stop Times: Operation Date: 01/14/25 07:30 Case Time Into Pre-Op 01/14/25 06:11 Anesthesia Start 01/14/25 07:34 Into Room 01/14/25 07:34 Out of Pre-Op 01/14/25 07:34 Procedure Start 01/14/25 08:00 Procedure End 01/14/25 11:54 Anesthesia End 01/14/25 12:01 Out of Room 01/14/25 12:01 Into Recovery 01/14/25 12:03 Out of Recovery 01/14/25 13:44 Into Phase II Recovery 01/14/25 13:45 Out of Phase II 01/14/25 15:56 Procedure Start Time: 08:00 Procedure Stop Time: 11:54 Select all DRAINS/GRAFTS/IMPLANTS that apply: None Estimated Blood Loss: 75 Specimen collected: Yes Description of specimen(s) removed: Gallbladder Description of surgery: After proper identification in the preoperative holding area the patient was brought to the operating room where she was positioned supine on the operating room table. Preoperatively SCDs were placed and antibiotics were administered. General anesthesia was then induced. Patient's abdomen was prepped and draped in usual sterile fashion. A formal timeout was conducted to confirm both patient and the procedure. Procedure was begun with a supraumbilical incision which was extended deeply down to the level of the fascia. The fascia was elevated and incised, as well as the peritoneum. A finger sweep was performed to ensure there were no underlying adhesions and a 12 mm balloon trocar was inserted. Pneumoperitoneum was established at 15 mmHg. Three additional trocars (all 5 mm) were placed in the epigastrium and in the right upper quadrant. Inspection of the peritoneum revealed no inadvertent injury to the viscera below. The gallbladder was visualized with a mild degree of inflammation in the fundal portion of the gallbladder that became progressively more significant approaching the infundibulum. The gallbladder fundus was then grasped and elevated cephalad. Using careful dissection the adhesions were taken down and the peritoneum was opened and the structures of the hepatocystic triangle were delineated. Through this dissection I identified numerous small arterial branches emanating from the presumed course of the cystic artery towards the dilated cystic duct. The trunk of the artery was not immediately visible due to the significant inflammatory change with a rind adjacent to the interface medially. I did identify a large lymph node as the node of Calot. As I sought to establish the critical view of safety I found it exceptionally challenging to do so given the numerous small vessels coming from the cystic artery. Additionally, I also grew concerned for a possible extrahepatic common hepatic duct with dense adhesion to the gallbladder infundibulum medially. We expressed a particular concern for a potential fistula between these 2 structures. Upon noting this anatomic variation I requested the assistance of my partner to the operating room. He agreed with my assessment/concern and suggested we try to obtain a cholangiogram with a Mistry clamp. Two attempts were made for this cholangiogram but simply resulted in retrograde filling of the gallbladder and no antegrade filling of the bile duct system. Therefore, I worked to further delineate the course of the cystic artery by dissecting high on the gallbladder. As I did so an inadvertent rent was made in the gallbladder with retraction along the anterior wall. It was clear that underlying distention from moderately large gallstones was a contributing factor for this rent. Several of the stones were removed from the opening and set aside in a designated location overlying the stomach for later retrieval. I then saw an opportunity to pass a cholangiocatheter through the rent in the gallbladder wall and was able to advance it into the opening of the cystic duct where I clamped it in place with external application of the Mistry clamp across the cystic duct. Under fluoroscopy a cholangiogram was then obtained showing a standard length cystic duct flowing into a common bile duct with unobstructed antegrade flow of contrast into the duodenum. There was also retrograde flow through the common hepatic duct into the right and left hepatic ducts. Notably, there was no fistula formed between the gallbladder and the common hepatic duct. Satisfied with this result, the cholangiocatheter was withdrawn and I decided I could safely proceed with occluding the gallbladder at the level of the rent?located above the adhesion to the posterior anatomy. However, occlusion of the duct was not possible with even our largest Hem-o-milton clips. Instead, I began a dome down dissection of the gallbladder off the liver. With the gallbladder taken directly off the surface of the liver, I then removed an extensive attachment of inflammatory rind to the posterior aspect of the gallbladder with blunt dissection and electrocautery to bring us down to the level of the cystic duct. Here I placed 2 Endoloops across the cystic duct but above the adhesion to the posterior anatomy. The specimen was then amputated and the gallbladder was placed in an Endo Catch bag along with our identified gallstone. Morison's pouch was irrigated and the effluent was suctioned free of the peritoneum. Several additional gallstones were retrieved during this process. Lastly I performed a core needle biopsy of segment 5 of the liver using a tangential approach with our biopsy device. This did result in some bleeding but that was quickly stopped with application of external pressure via a Ray-Marisol gauze and then thermocoagulation with electrocautery. Lastly I placed a small patch of fibrillar hemostatic agent over the area. The gallbladder specimen in the Endo Catch bag was removed from the peritoneal cavity after sharply enlarging the supraumbilical port site. Pneumoperitoneum was evacuated and the fascia of the this larger port site was closed with #1Vicryl in a [id number] fashion. A total of 30 mL of anesthetic was injected at the port sites for postoperative pain control. The skin of each port site was then closed in subcuticular fashion using 4-0 Monocryl. Steri-Strips and bandages were applied as dressings. Patient tolerated the procedure well without any apparent complications. On emergence from their anesthetic the patient was taken to PACU for ongoing recovery. Surgical Findings: ? Numerous aberrant anastomotic branches between the cystic artery and the gallbladder infundibulum/neck region ? Dense adhesions between gallbladder infundibulum and a medial structure thought to be cystic artery encased by rind Complications Complications: No Admit VTE Documentation VTE Mechan Device Prophylaxis: SCD's
--- NOTE | 2025-01-14 11:43 | EX.PCM.DISCH ---
Discharge Instructions Diet Discharge Diet: No restrictions Activity Discharge Activity: May Not Drive (No driving while using narcotic pain medication) and May Shower (Postoperative day 1) May shower in (days): 2 Ice area for (Minutes): 20 Lifting Restrictions: No lifting greater than 15 pounds for 2 weeks after surgery Dressing / Incision Call your doctor if your incision/area has: Continuous Slow Oozing, Increased Pain/ Swelling, Increased Redness, Foul Smelling Discharge and Swelling at the incision site Call your doctor if you observe: Fever of 101 or Higher Remove Dressing in: 2 days (Please leave Steri-Strips intact until they fall off spontaneously or are taken off at your follow-up visit) Cleanse incision/area with: Soap & Water Follow Up Care Please Follow Up With: Yaw Sandhu MD When: 7-10days postop Test Results: Test results from this visit will be discussed in further detail at your follow-up appointment, if applicable. Discharge Plan Admission Primary Reason for Your Visit: Cholecystectomy Attending Provider: Yaw Sandhu Primary Care Provider: Brenda Roy NP Instructions Print Language: Sinhala Discharge Orders/Prescriptions Prescriptions: New oxycodone 5 mg tablet 5 mg PO Q6H PRN (Reason: pain) 3 Days Qty: 10 0RF Continued levothyroxine 75 MCG tablet 75 mcg PO DAILY citalopram 20 MG tablet 20 mg PO DAILY phentermine 37.5 mg capsule 37.5 mg PO DAILY topiramate 50 mg tablet 50 mg PO DAILY multivitamin [Daily Multi-Vitamin] Tablet 1 tab PO DAILY mecobalamin (vitamin B12) 1,000 mcg tablet,chewable 1,000 mcg PO DAILY AZO D-Mannose 500 mg tablet,chewable 500 mg PO DAILY oxycodone 5 mg tablet 5 mg PO Q6H PRN (Reason: pain) 3 Days Qty: 12 0RF ondansetron 4 mg tablet,disintegrating 4 mg PO TID PRN (Reason: nausea and vomiting) Qty: 21 0RF Referrals / Follow Up: Brenda Roy NP, [employer] [Primary Care Provider] - Disposition Disposition (needs filled in before D/C Order can be placed): Home, Self Care
[2025-01-14] MEDS: Pantoprazole Sodium 20 MG Tablet PO (13:24)
--- NOTE | 2025-01-14 13:24 | PCM.POST.ANE ---
Anesthesia: Postop Eval I Current Vital Signs Temperature: 97.0 F Pulse Rate: 71 Blood Pressure: 111/66 Respiratory Rate: 16 Pulse Ox: 100 Oxygen Delivery Method: Room Air Assessment Airway patent: Yes Spontaneous unlabored respirations: Yes Mental status: Awake nausea: No Vomiting: No Anesthesia Complication: No Fluid Hydration Crystalloid volume administer (ml): 1,000 Total IV fluid infused: 1,000 Progress Note Anesthesia document: Postop Eval 1 completed: Yes
--- NOTE | 2025-01-14 13:25 | PCM.POSTANE2 ---
Anesthesia Postop Eval I Sum Postop Eval Completion status Anesthesia document: Postop Eval 1 completed: Yes Anesthesia Postop Eval I Summary Anesthesia Postop Eval I Summary: Anesthesia Postop Eval I: Assessment Summary Airway patent Yes 01/14/25 13:25 Spontaneous unlabored Yes 01/14/25 13:25 respirations Mental status Awake 01/14/25 13:25 nausea No 01/14/25 13:25 Vomiting No 01/14/25 13:25 Anesthesia Postop Eval I: Fluid Summary Crystalloid volume administer 1,000 01/14/25 13:25 (ml) Colloids volume administered ( ml) Blood Product volume administered (ml) Total IV fluid infused 1,000 01/14/25 13:25 Anesthesia Postop Eval I: Summary Notes Anesthesia Complication No 01/14/25 13:25 Anesthesia Complication Comment: Post-operative progress note Anesthesia: Postop Eval II Evaluation Mental status: Awake Pain Level: 0 nausea: No Vomiting: No Progress Note Post-operative progress note: Omeprazole and metoclopramide given for GERD sxs and nausea. Both resolved after tx Complications Anesthesia Complication: No
--- NOTE | 2025-01-14 13:36 | PCM.POST.ANE ---
Anesthesia: Postop Eval I Current Vital Signs Temperature: 97 F Pulse Rate: 71 Blood Pressure: 111/66 Respiratory Rate: 18 Pulse Ox: 100 Oxygen Delivery Method: Nasal Cannula Assessment Airway patent: Yes Spontaneous unlabored respirations: Yes nausea: No Vomiting: No Anesthesia Complication: No Fluid Hydration Crystalloid volume administer (ml): 2,000 Total IV fluid infused: 2,000 Progress Note Anesthesia document: Postop Eval 1 completed: Yes
[2025-01-14] MEDS: Mag Hydrox/Al Hydrox/Simeth 30 ML UDC PO (14:56)
[2025-01-14 14:59] LABS: Pathology Sent to OSU SEE PATHOLOGY REPORT
== END 2025-01-14 15:57 | disposition home or self-care (01) ==
LOC: SDC 06:00 → AC 06:03
PROVIDERS: Anesthesiology; PCP Nurse Practitioner Primary Care; Referring Provider Surgery; Visit Provider Surgery
PROC: (CPT 47610; principal; 2025-01-14 07:10)
DX: K80.66 Calculus of gallbladder and bile duct with acute and chronic cholecystitis without obstruction (principal); K50.90 Crohn's disease, unspecified, without complications; R79.89 Other specified abnormal findings of blood chemistry; E03.9 Hypothyroidism, unspecified
CPT/HCPCS: 47563; 47000; 00790; 74300; 76000; 81025; 93005; J2405